=== PATIENT | male | born 1960 | race Caucasian/White ===

== ENCOUNTER → 2016-08-10 | Outpatient (REF) | payer BC ==
[~2016-08-10] MED LIST: ACET-71 PO; ASPI1TAB PO; ATEN25TA PO; ATOR40TA PO; AUGM875T27 PO; DRIS50002 PO; FENO160T10 PO; GABA-283 PO; GLUC850T PO; GLYB5TA PO; HEPA100SYR IV; INSUDET SC; JARD1TAB PO; LEVA750T PO; LISI-538 PO; LISI10TA4 PO; METF750T PO; OMEP20CA3 PO; PERCOCET PO; SILV-4 TOP; SLF IV; UNAS3INJ3 IJ
== END ==
LOC: M LAB REF 12:24
PROVIDERS: ATTEND Surgery
DX: E11.621 Type 2 diabetes mellitus with foot ulcer (principal)

== ENCOUNTER → 2016-08-24 | Outpatient (REF) | payer BC ==
[2016-08-24 12:04] LABS: ANION GAP 9 MEQ/L (8-16); BLOOD UREA NITROGEN 28 MG/DL (7-18); CALCIUM LEVEL 9.3 MG/DL (8.5-10.1); CARBON DIOXIDE LEVEL 28 MEQ/L (21-32); CHLORIDE LEVEL 106 MEQ/L (98-107); GLOMERULAR FILTRATION RATE > 60.0 (>56); GLUCOSE, FASTING 304 MG/DL (70-105); POTASSIUM SERUM 4.6 MEQ/L (3.5-5.1); SODIUM LEVEL 143 MEQ/L (136-145)
[2016-08-24 12:23] LABS: BASO % 0.6 % (0.0-1.0); EOS # 0.1 K/mm3 (0.0-0.50); EOS % 2.1 % (0.0-3.0); LARGE UNSTAINED CELL # 0.1 K/mm3 (0.0-0.4); LARGE UNSTAINED CELL % 2.3 % (0.0-4.0); LYMPH # 1.6 K/mm3 (1.5-4.5); LYMPH % 33.4 % (24.0-44.0); MEAN CORPUSCULAR VOLUME 87.8 fl (80.0-96.0); MONO # 0.3 K/mm3 (0.0-0.8); MONO % 5.5 % (0.0-5.0); NEUTROPHILS # 2.7 K/mm3 (1.8-7.7); NEUTROPHILS % 56.2 % (36.0-66.0); PLATELET COUNT, AUTOMATED 159 k/mm3 (150-450); RED CELL DISTRIBUTION WIDTH 13.7 % (11.5-14.5); WHITE BLOOD COUNT 4.9 K/mm3 (4.0-10.0)
[2016-08-24 12:45] LABS: ERYTHROCYTE SEDIMENTATION RATE 8 mm/hr (0-20)
== END ==
LOC: M LABDRAW1 11:27
PROVIDERS: ATTEND Internal Medicine Infectious Disease
DX: M86.171 Other acute osteomyelitis, right ankle and foot (principal)

== ENCOUNTER → 2016-09-13 | Outpatient (REF) | payer BC | LOC: M LAB REF 16:33 | PROVIDERS: ATTEND Surgery | DX: E11.621 Type 2 diabetes mellitus with foot ulcer (principal) ==

== ENCOUNTER → 2016-09-17 | Outpatient (CLI) | payer BC ==
--- NOTE | 2016-09-17 12:45 | REP ---
MR ANGIOGRAPHY OF THE AORTA AND RUNOFF LOWER EXTREMITY ARTERIES WITH IV CONTRAST: HISTORY: Type 2 diabetes, foot ulcer right side. No comparison MR angiography. GADOLINIUM ENHANCEMENT DOSE: 35 mL of intravenous ProHance is given. TECHNIQUE: 3D gradient echo imaging is acquired, and source images are reviewed in coronal projection. Maximal intensity projection images are generated and reviewed rotationally. MR ANGIOGRAPHIC FINDINGS: The infrarenal abdominal aorta is normal in caliber. Flow signal indicating patency is seen in the superior mesenteric and inferior mesenteric arteries. The celiac axis as at the proximal edge of the scanned field and is not well seen. Renal arteries are nonstenotic and appear solitary. The common iliac arteries are widely patent bilaterally. Internal and external iliac arteries are unremarkable bilaterally. The common femoral, profunda femoral, and superficial femoral arteries are patent in the proximal thighs. There is minimal atherosclerotic irregularity of the mid superficial femoral artery segments on each side, but no significant stenosis is seen. Popliteal arteries are of good caliber. Three-vessel calf run off is documented to both ankles. IMPRESSION: Minimal atherosclerotic irregularity of the mid superficial femoral arteries bilaterally. No significant stenosis seen. Signed by To Eastman MD 09/17/2016 04:46 P
== END ==
LOC: M RAD 10:06
PROVIDERS: ATTEND Surgery
DX: E11.621 Type 2 diabetes mellitus with foot ulcer (principal); I77.89 Other specified disorders of arteries and arterioles
CPT/HCPCS: 74183; A9576; C8914

== ENCOUNTER → 2016-09-27 | Outpatient (REF) | payer BC ==
[2016-09-27 12:02] LABS: MEAN CORPUSCULAR HEMOGLOBIN 29.8 pg (27.0-33.0); MEAN CORPUSCULAR HGB CONC 34.4 g/dl (32.0-36.5); MEAN CORPUSCULAR VOLUME 86.6 fl (80.0-96.0); RED CELL DISTRIBUTION WIDTH 13.7 % (11.5-14.5); WHITE BLOOD COUNT 5.9 K/mm3 (4.0-10.0)
[2016-09-27 12:12] LABS: ALBUMIN 3.8 GM/DL (3.2-5.2); ALBUMIN/GLOBULIN RATIO 1.23 (1.00-1.93); ALKALINE PHOSPHATASE 65 U/L (45-117); ALT/SGPT 19 U/L (12-78); ANION GAP 6 MEQ/L (8-16); AST/SGOT 11 U/L (15-37); BILIRUBIN,TOTAL 0.4 MG/DL (0.2-1.0); BLOOD UREA NITROGEN 27 MG/DL (7-18); CALCIUM LEVEL 8.8 MG/DL (8.5-10.1); CARBON DIOXIDE LEVEL 29 MEQ/L (21-32); CHLORIDE LEVEL 107 MEQ/L (98-107); CREATININE FOR GFR 1.17 MG/DL (0.70-1.30); GLOMERULAR FILTRATION RATE > 60.0 (>56); GLUCOSE, FASTING 220 MG/DL (70-105); POTASSIUM SERUM 4.2 MEQ/L (3.5-5.1); SODIUM LEVEL 142 MEQ/L (136-145); TOTAL PROTEIN 6.9 GM/DL (6.4-8.2)
== END ==
LOC: M LABDRAW1 11:40
PROVIDERS: ATTEND Physician Assistant
DX: E11.29 Type 2 diabetes mellitus with other diabetic kidney complication (principal)

== ENCOUNTER → 2016-11-02 | Outpatient (REF) | payer BC ==
[2016-11-02 11:42] LABS: BASO % 0.6 % (0.0-1.0); EOS # 0.1 K/mm3 (0.0-0.50); EOS % 2.2 % (0.0-3.0); LARGE UNSTAINED CELL # 0.1 K/mm3 (0.0-0.4); LARGE UNSTAINED CELL % 1.5 % (0.0-4.0); LYMPH # 1.8 K/mm3 (1.5-4.5); LYMPH % 27.3 % (24.0-44.0); MEAN CORPUSCULAR HEMOGLOBIN 29.7 pg (27.0-33.0); MEAN CORPUSCULAR HGB CONC 33.7 g/dl (32.0-36.5); MEAN CORPUSCULAR VOLUME 88.1 fl (80.0-96.0); MONO # 0.4 K/mm3 (0.0-0.8); MONO % 6.7 % (0.0-5.0); NEUTROPHILS # 3.8 K/mm3 (1.8-7.7); NEUTROPHILS % 61.7 % (36.0-66.0); PLATELET COUNT, AUTOMATED 200 k/mm3 (150-450); RED CELL DISTRIBUTION WIDTH 13.2 % (11.5-14.5); WHITE BLOOD COUNT 6.2 K/mm3 (4.0-10.0)
[2016-11-02 12:05] LABS: ANION GAP 6 MEQ/L (8-16); BLOOD UREA NITROGEN 34 MG/DL (7-18); CALCIUM LEVEL 9.4 MG/DL (8.5-10.1); CARBON DIOXIDE LEVEL 28 MEQ/L (21-32); CHLORIDE LEVEL 107 MEQ/L (98-107); CREATININE FOR GFR 1.24 MG/DL (0.70-1.30); GLOMERULAR FILTRATION RATE > 60.0 (>56); GLUCOSE, FASTING 217 MG/DL (70-105); POTASSIUM SERUM 4.7 MEQ/L (3.5-5.1); SODIUM LEVEL 141 MEQ/L (136-145)
[2016-11-02 12:13] LABS: ERYTHROCYTE SEDIMENTATION RATE 59 mm/hr (0-20)
== END ==
LOC: M LABDRAW1 11:13
PROVIDERS: ATTEND Internal Medicine Infectious Disease
DX: M86.171 Other acute osteomyelitis, right ankle and foot (principal)

== ENCOUNTER → 2016-11-02 | Outpatient (REF) | payer BC ==
[2016-11-02 12:11] LABS: FOLATE 7.4 NG/ML (>5.4); VITAMIN B12 LEVEL 521 PG/ML (247-911)
[2016-11-02 12:18] LABS: ALBUMIN 3.6 GM/DL (3.2-5.2); ALBUMIN/GLOBULIN RATIO 1.16 (1.00-1.93); ALKALINE PHOSPHATASE 62 U/L (45-117); ALT/SGPT 15 U/L (12-78); ANION GAP 5 MEQ/L (8-16); AST/SGOT 6 U/L (15-37); BILIRUBIN,TOTAL 0.4 MG/DL (0.2-1.0); BLOOD UREA NITROGEN 32 MG/DL (7-18); CALCIUM LEVEL 9.1 MG/DL (8.5-10.1); CARBON DIOXIDE LEVEL 28 MEQ/L (21-32); CHLORIDE LEVEL 107 MEQ/L (98-107); CREATININE FOR GFR 1.25 MG/DL (0.70-1.30); FREE T4 1.19 NG/DL (0.76-1.46); GLOMERULAR FILTRATION RATE > 60.0 (>56); GLUCOSE, FASTING 222 MG/DL (70-105); POTASSIUM SERUM 4.5 MEQ/L (3.5-5.1); SODIUM LEVEL 140 MEQ/L (136-145); TOTAL PROTEIN 6.7 GM/DL (6.4-8.2)
== END ==
LOC: M LABDRAW1 11:14
PROVIDERS: ATTEND Physician Assistant
DX: E11.29 Type 2 diabetes mellitus with other diabetic kidney complication (principal); G56.91 Unspecified mononeuropathy of right upper limb

== ENCOUNTER → 2016-12-01 | Outpatient (REF) | payer BC ==
[2016-12-01 12:22] LABS: MEAN CORPUSCULAR HEMOGLOBIN 29.3 pg (27.0-33.0); MEAN CORPUSCULAR HGB CONC 32.7 g/dl (32.0-36.5); MEAN CORPUSCULAR VOLUME 89.7 fl (80.0-96.0); RED CELL DISTRIBUTION WIDTH 14.2 % (11.5-14.5); WHITE BLOOD COUNT 6.2 K/mm3 (4.0-10.0)
[2016-12-01 12:30] LABS: INR 1.12
[2016-12-01 12:38] LABS: ALBUMIN 3.4 GM/DL (3.2-5.2); ALBUMIN/GLOBULIN RATIO 0.94 (1.00-1.93); ALKALINE PHOSPHATASE 73 U/L (45-117); ALT/SGPT 16 U/L (12-78); ANION GAP 8 MEQ/L (8-16); AST/SGOT 10 U/L (15-37); BILIRUBIN,TOTAL 0.3 MG/DL (0.2-1.0); BLOOD UREA NITROGEN 26 MG/DL (7-18); CALCIUM LEVEL 8.6 MG/DL (8.5-10.1); CARBON DIOXIDE LEVEL 27 MEQ/L (21-32); CHLORIDE LEVEL 106 MEQ/L (98-107); CREATININE FOR GFR 1.17 MG/DL (0.70-1.30); GLOMERULAR FILTRATION RATE > 60.0 (>56); GLUCOSE, FASTING 232 MG/DL (70-105); POTASSIUM SERUM 4.4 MEQ/L (3.5-5.1); SODIUM LEVEL 141 MEQ/L (136-145)
== END ==
LOC: M LABDRAW1 11:06
PROVIDERS: ATTEND Surgery
DX: E11.621 Type 2 diabetes mellitus with foot ulcer (principal)

== ENCOUNTER → 2016-12-07 | Outpatient (CLI) | payer BC ==
[~2016-12-07] MED LIST changes: -ACET-71 PO; +ACET1TAB16 PO; -ATOR40TA PO; +ATOR40TA75 PO; -AUGM875T27 PO; +AUGM875T28 PO; +ISOVUE-300 61% 50ML VIAL (Q9967) As Ordered ONE; -LEVA750T PO; +LEVA750T7 PO; +LIDOCAINE 2% MDV 20 ML VIAL As Ordered ONE; +MIDAZOLAM INJ 2 MG/2 ML VIAL (J2250) As Ordered ONE; +fentaNYL 100 MCG/2 ML INJECTION (J3010) As Ordered ONE
--- NOTE | 2016-12-16 18:44 | REP ---
IMAGES DURING ABDOMINAL AORTOGRAM AND RIGHT LOWER EXTREMITY ANGIOGRAM: Clinical history: Right lower extremity arterial insufficiency with ulcer. Catheter is seen in the abdominal aorta. Contrast is injected. Right lower extremity arterial system is opacified with contrast. 1.1 minutes fluoroscopy time utilized for the procedure. Signed by Hoang Babcock MD 12/16/2016 07:18 P
--- NOTE | 2017-01-06 09:03 | RO ---
DATE OF PROCEDURE: 12/07/2016 PREPROCEDURE DIAGNOSIS: Nonhealing right first toe ulcer, right foot deformity. POSTPROCEDURE DIAGNOSIS: Nonhealing right first toe ulcer, right foot deformity. PROCEDURE: Aortogram, iliofemoral angiogram, selective right common femoral artery catheter placement with right lower extremity angiogram, Mynx closure of the left common femoral arteriotomy. SURGEON: Dr. Leonel Cain. PROJECT PORTFOLIO ANALYST: ANESTHESIA: Local with sedation with 1 mg of Versed, 50 mcg of Fentanyl and 10 mL of 2% lidocaine. ESTIMATED BLOOD LOSS: FLUORO TIME: 1.1 minutes. CONTRAST: 22 mL of Isovue 300. SEDATION TIME: 8:16 a.m. to 8:50 a.m. with the sedation and cardiopulmonary monitoring performed by the RN in the room under my direction. I was present for and directed the entire case. COMPLICATIONS: None. DRAINS: None. SPECIMENS: None. IMPLANTS: Left common femoral arteriotomy closure with a Mynx closure device. INDICATION: Patient is a 56-year-old male with deformity of the right foot and a nonhealing ulcer at the base of the right first toe which has osteomyelitis and has been present for quite some time. The patient was evaluated for possible surgical intervention with amputation and possible transmetatarsal amputation and the recommendation was to undergo angiography prior to any surgical intervention to ensure adequate blood flow for healing. Risks, benefits and alternative treatment options were discussed with the patient. Alternative treatment options including but were not limited to no intervention. Risks included but were not limited to infection, bleeding, renal failure requiring hemodialysis, possible need for open surgical intervention, retroperitoneal hematoma, cerebrovascular accident, myocardial infarction, pulmonary embolus, deep venous thrombosis (DVT), loss of limb, loss of life and poor outcome. Patient understands, accepts these risks and consents to proceed. PROCEDURE: The patient was taken to the angiography suite and placed supine on the angiography room table and then prepped and draped in a standard surgical fashion. After a time out was conducted confirming the proper procedure and patient, the left common femoral artery was cannulated with a micropuncture needle after anesthetizing the overlying skin with 1% lidocaine. The micropuncture wire was advanced through the micropuncture needle which was upsized to a micropuncture sheath. A [place] wire was advanced through the micropuncture sheath which was upsized to a #5-[place] sheath. An Omniflush catheter was placed in the aorta and an aortogram was performed. Catheter was pulled down to the level of the bifurcation of the iliac arteries and an iliofemoral angiogram was performed. Catheter was then directed over the bifurcation of the iliac arteries using a [place] wire and placed in the right common femoral artery and a right lower extremity angiogram was performed. Catheter was then removed over a [place] wire and a Mynx closure device was used to close the arteriotomy in the left common femoral artery with an additional 15 minutes of adjunctive pressure applied for hemostasis. Dressings were then applied. Patient tolerated the procedure well. All instrument, sponge and needle counts were correct at the end of the case. There were no complications. Dr. Cain was present for and directed the entire case. Patient was transferred to the holding area and subsequently discharged in stable condition. RADIOLOGIC SUPERVISION INTERPRETATION: The initial aortogram showed the thoracic aorta from the diaphragm to just above the renal arteries to be widely patent. The superior mesenteric and celiac arteries were patent with no significant stenosis or disease noted. There were two renal arteries on the left both of which were widely patent. There was a single renal artery on the right which showed no evidence of disease. The infrarenal aorta was widely patent with no disease noted with good filling of the lumbar vessels. The inferior mesenteric artery was patent. The common iliac, external and internal iliac arteries bilaterally were widely patent. The right common femoral and proximal superficial femoral and profunda femoris arteries were widely patent. There was no visualization of the right lower extremity below the puncture site. The left common iliac, external iliac, internal iliac and common femoral artery were widely patent. The catheter was then placed in the right common femoral artery and a right lower extremity angiogram was performed which showed the common femoral, superficial femoral and profunda femoris arteries to be widely patent with three vessel runoff into the calf with the anterior tibial artery being dominant. The peroneal artery was patent and small in caliber with moderate disease in the mid calf region. No intervention was required. A Mynx closure device was used to close the arteriotomy in the left common femoral artery.
== END ==
LOC: M IRPRO 06:43
PROVIDERS: ATTEND Surgery Vascular Surgery
DX: I70.235 Atherosclerosis of native arteries of right leg with ulceration of other part of foot (principal); L97.519 Non-pressure chronic ulcer of other part of right foot with unspecified severity; M86.671 Other chronic osteomyelitis, right ankle and foot; E11.621 Type 2 diabetes mellitus with foot ulcer
CPT/HCPCS: 36246; 75630; 75710; 99152; 99153; C1760; C1769; C1887; C1894; J2250; J3010; Q9967

== ENCOUNTER → 2017-07-20 | Outpatient (REF) | payer BC ==
[2017-07-20 12:45] LABS: HEMATOCRIT 45.8 % (42.0-52.0); HEMOGLOBIN 15.8 g/dl (14.0-18.0); MEAN CORPUSCULAR HEMOGLOBIN 29.6 pg (27.0-33.0); MEAN CORPUSCULAR HGB CONC 34.5 g/dl (32.0-36.5); MEAN CORPUSCULAR VOLUME 85.9 fl (80.0-96.0); PLATELET COUNT, AUTOMATED 174 10^3/uL (150-450); RED BLOOD COUNT 5.33 10^6/uL (4.30-6.10); RED CELL DISTRIBUTION WIDTH 12.5 % (11.5-14.5); WHITE BLOOD COUNT 6.1 10^3/uL (4.0-10.0)
[2017-07-20 12:55] LABS: TOTAL 25(OH) VITAMIN D 35.7 NG/ML (30.0-100.0)
[2017-07-20 12:56] LABS: VITAMIN B12 LEVEL 731 PG/ML
[2017-07-20 13:02] LABS: ALBUMIN 4.2 GM/DL (3.2-5.2); ALBUMIN/GLOBULIN RATIO 1.27 (1.00-1.93); ALKALINE PHOSPHATASE 73 U/L (45-117); ALT/SGPT 31 U/L (12-78); ANION GAP 10 MEQ/L (8-16); AST/SGOT 17 U/L (7-37); BILIRUBIN,TOTAL 0.5 MG/DL (0.2-1.0); BLOOD UREA NITROGEN 36 MG/DL (7-18); CALCIUM LEVEL 9.6 MG/DL (8.5-10.1); CARBON DIOXIDE LEVEL 26 MEQ/L (21-32); CHLORIDE LEVEL 103 MEQ/L (98-107); CHOLESTEROL LEVEL 130 MG/DL (<200); CHOLESTEROL RISK RATIO 6.842 (<5); CREATININE FOR GFR 1.14 MG/DL (0.70-1.30); GLOMERULAR FILTRATION RATE > 60.0 (>56); GLUCOSE, FASTING 382 MG/DL (70-105); HDL CHOLESTEROL 19 MG/DL (>40); NON-HDL-C 111 MG/DL; POTASSIUM SERUM 4.4 MEQ/L (3.5-5.1); SODIUM LEVEL 139 MEQ/L (136-145); TOTAL PROTEIN 7.5 GM/DL (6.4-8.2); TRIGLYCERIDES LEVEL 867 MG/DL (<150)
[2017-07-20 13:17] LABS: CREATININE, URINE 24.8 MG/DL; MAU/CREAT RATIO 1100.8 MCG/MG (0.0-30.0)
[2017-07-20 13:29] LABS: ESTIMATED AVERAGE GLUCOSE 275 MG/DL (60-110); HEMOGLOBIN A1c 11.2 %
== END ==
LOC: M SFHCADAM 08:56
DX: E10.65 Type 1 diabetes mellitus with hyperglycemia (principal); I10 Essential (primary) hypertension; E78.4 Other hyperlipidemia; E55.9 Vitamin D deficiency, unspecified; G56.90 Unspecified mononeuropathy of unspecified upper limb
CPT/HCPCS: 82746

== ENCOUNTER → 2018-02-05 | Outpatient (REF) | payer BC | LOC: M LAB REF 10:05 | DX: L03.90 Cellulitis, unspecified (principal) | CPT/HCPCS: 87186 ==

== ENCOUNTER → 2018-09-25 | Outpatient (CLI) | payer BC ==
[~2018-09-25] MED LIST changes: -DRIS50002 PO; +DRIS50003 PO; -GABA-283 PO; +GABA-845 PO; -ISOVUE-300 61% 50ML VIAL (Q9967) As Ordered ONE; -LIDOCAINE 2% MDV 20 ML VIAL As Ordered ONE; -MIDAZOLAM INJ 2 MG/2 ML VIAL (J2250) As Ordered ONE; -fentaNYL 100 MCG/2 ML INJECTION (J3010) As Ordered ONE
[2018-09-25 13:29] LABS: CALCIUM LEVEL 9.1 MG/DL (8.5-10.1); CREATININE FOR GFR 1.5 MG/DL (0.70-1.30); GLOMERULAR FILTRATION RATE 51.4 (>56); POTASSIUM SERUM 4.8 MEQ/L (3.5-5.1)
[2018-09-25 15:59] LABS: HEMOGLOBIN A1c 10.5 %
== END ==
LOC: M SMT 08:57
PROVIDERS: ATTEND Physician Assistant
DX: E11.621 Type 2 diabetes mellitus with foot ulcer (principal); E11.65 Type 2 diabetes mellitus with hyperglycemia; L97.509 Non-pressure chronic ulcer of other part of unspecified foot with unspecified severity

== ENCOUNTER → 2018-10-25 | Outpatient (REF) | payer BC ==
[~2018-10-25] MED LIST changes: -ASPI1TAB PO; +ASPI81TA26 PO; +GLYB-147 PO
[2018-10-25 19:18] LABS: HEMATOCRIT 47.8 % (42.0-52.0); HEMOGLOBIN 16.4 g/dl (13.5-17.5); MEAN CORPUSCULAR HEMOGLOBIN 30.6 pg (27.0-33.0); MEAN CORPUSCULAR HGB CONC 34.3 g/dl (32.0-36.5); MEAN CORPUSCULAR VOLUME 89.2 fl (80.0-96.0); PLATELET COUNT, AUTOMATED 182 10^3/uL (150-450); RED BLOOD COUNT 5.36 10^6/uL (4.30-6.10); WHITE BLOOD COUNT 7.8 10^3/uL (4.0-10.0)
[2018-10-25 19:23] LABS: APPEARANCE, URINE CLEAR (CLEAR); BACTERIA, URINE AUTO NEGATIVE (NEGATIVE); BILIRUBIN, URINE AUTO NEGATIVE (NEGATIVE); BLOOD, URINE BLOOD 2+ (NEGATIVE); COLOR, URINE STRAW (YELLOW); GLUCOSE, URINE (UA) AUTO 3+ mg/dL (NEGATIVE); KETONE, URINE AUTO NEGATIVE (NEGATIVE); LEUKOCYTE ESTERASE, URINE AUTO NEGATIVE (NEGATIVE); NITRITE, URINE AUTO NEGATIVE (NEGATIVE); PROTEIN, URINE AUTO 2+ mg/dL (NEGATIVE); RBC, URINE AUTO 2 /HPF (0-3); SPECIFIC GRAVITY URINE AUTO 1.024 (1.002-1.035); SQUAMOUS EPITHELIAL CELL UR AU 0 /HPF (0-6); UROBILINOGEN, URINE AUTO 0.2 mg/dL (0.0-2.0); WBC, URINE AUTO 1 /HPF (0-3)
[2018-10-25 19:37] LABS: ALBUMIN 4.1 GM/DL (3.2-5.2); ALT/SGPT 40 U/L (12-78); BILIRUBIN,TOTAL 0.4 MG/DL (0.2-1.0); BLOOD UREA NITROGEN 36 MG/DL (7-18); CARBON DIOXIDE LEVEL 26 MEQ/L (21-32); CHLORIDE LEVEL 107 MEQ/L (98-107); CHOLESTEROL LEVEL 151 MG/DL (<200); CHOLESTEROL RISK RATIO 6.291 (<5); CREATININE FOR GFR 1.41 MG/DL (0.70-1.30); FREE T4 1.01 NG/DL (0.76-1.46); GLOMERULAR FILTRATION RATE 55.2 (>56); GLUCOSE, FASTING 338 MG/DL (70-100); HDL CHOLESTEROL 24 MG/DL (>40); NON-HDL-C 127 MG/DL; POTASSIUM SERUM 4.8 MEQ/L (3.5-5.1); SODIUM LEVEL 141 MEQ/L (136-145); TOTAL PROTEIN 7.3 GM/DL (6.4-8.2); TRIGLYCERIDES LEVEL 912 MG/DL (<150)
[2018-10-25 19:45] LABS: HEMOGLOBIN A1c 10.2 %
[2018-10-25 20:05] LABS: CREATININE, URINE 37.7 MG/DL; MAU/CREAT RATIO 1580.9 MCG/MG (0.0-30.0)
== END ==
LOC: M SFHCADAM 17:13
PROVIDERS: ATTEND Physician Assistant
DX: E11.29 Type 2 diabetes mellitus with other diabetic kidney complication (principal); N18.3 Chronic kidney disease, stage 3 (moderate)

== ENCOUNTER → 2018-11-22 | Outpatient (REF) | payer BC ==
[2018-11-22 20:14] LABS: APPEARANCE, URINE CLEAR (CLEAR); BACTERIA, URINE AUTO 1+ (NEGATIVE); BILIRUBIN, URINE AUTO NEGATIVE (NEGATIVE); BLOOD, URINE BLOOD 2+ (NEGATIVE); COLOR, URINE STRAW (YELLOW); GLUCOSE, URINE (UA) AUTO 3+ mg/dL (NEGATIVE); KETONE, URINE AUTO NEGATIVE (NEGATIVE); LEUKOCYTE ESTERASE, URINE AUTO NEGATIVE (NEGATIVE); NITRITE, URINE AUTO NEGATIVE (NEGATIVE); PROTEIN, URINE AUTO 2+ mg/dL (NEGATIVE); RBC, URINE AUTO 5 /HPF (0-3); SPECIFIC GRAVITY URINE AUTO 1.021 (1.002-1.035); SQUAMOUS EPITHELIAL CELL UR AU 0 /HPF (0-6); UROBILINOGEN, URINE AUTO 0.2 mg/dL (0.0-2.0); WBC, URINE AUTO 1 /HPF (0-3)
== END ==
LOC: M SFHCADAM 19:26
PROVIDERS: ATTEND Physician Assistant
DX: M21.961 Unspecified acquired deformity of right lower leg (principal)

== ENCOUNTER → 2018-12-13 | Outpatient (REF) | payer BC ==
[2018-12-13 18:47] LABS: CREATININE FOR GFR 1.45 MG/DL (0.70-1.30); GLOMERULAR FILTRATION RATE 53.4 (>56); POTASSIUM SERUM 4.4 MEQ/L (3.5-5.1)
[2018-12-13 19:14] LABS: APPEARANCE, URINE CLEAR (CLEAR); BACTERIA, URINE AUTO NEGATIVE (NEGATIVE); BILIRUBIN, URINE AUTO NEGATIVE (NEGATIVE); BLOOD, URINE BLOOD 2+ (NEGATIVE); COLOR, URINE STRAW (YELLOW); GLUCOSE, URINE (UA) AUTO 3+ mg/dL (NEGATIVE); KETONE, URINE AUTO NEGATIVE (NEGATIVE); LEUKOCYTE ESTERASE, URINE AUTO NEGATIVE (NEGATIVE); NITRITE, URINE AUTO NEGATIVE (NEGATIVE); PROTEIN, URINE AUTO 2+ mg/dL (NEGATIVE); RBC, URINE AUTO 3 /HPF (0-3); SPECIFIC GRAVITY URINE AUTO 1.022 (1.002-1.035); SQUAMOUS EPITHELIAL CELL UR AU 0 /HPF (0-6); UROBILINOGEN, URINE AUTO 0.2 mg/dL (0.0-2.0); WBC, URINE AUTO 0 /HPF (0-3)
== END ==
LOC: M SMT 17:03
PROVIDERS: ATTEND Nurse Practitioner Women's Health
DX: R31.29 Other microscopic hematuria (principal)
CPT/HCPCS: 36415; 80048; 81001; 87086; 88108; G0103

== ENCOUNTER → 2018-12-21 | Outpatient (CLI) | payer BC ==
[~2018-12-21] MED LIST changes: +ISOVUE-370 76% 100ML VIAL (Q9967) As Ordered ONE
--- NOTE | 2018-12-22 06:09 | REP ---
Nickel: Microscopic hematuria. Technique: Axial precontrast, contrast enhanced, and delayed images of the abdomen and pelvis using 100 ml Isovue 370 intravenous contrast material. Findings: Evaluation of the urinary check system demonstrates mild chronic-appearing bilateral perinephric stranding without hydroureteronephrosis. There is a 2 mm nonobstructing calculus in the upper pole of the right kidney. Kidneys exhibit symmetric parenchymal enhancement and excretion to the collecting system without significant cystic or mass lesion appreciated. Mild fatty infiltration to the liver suggested. Spleen, pancreas, gallbladder, and bilateral adrenal glands are normal. The enteric system is without obstruction or acute inflammatory process. Sigmoid diverticulosis noted without acute diverticulitis. Normal terminal ileum and appendix identified in the right lower quadrant. Fat containing left inguinal hernia noted. Abdominal aorta and vasculature without aneurysm or dissection. Pelvis demonstrates normal bladder and age appropriate prostate/seminal vesicles. No ascites. No free air. No adenopathy. Musculoskeletal structures without focal osseous abnormality. Lung bases are essentially clear. Impression: 1. 2 mm nonobstructing right intrarenal calculus. Mild chronic bilateral perinephric stranding without hydroureteronephrosis. 2. Sigmoid diverticulosis without acute diverticulitis. 3. Small fat containing left inguinal hernia. Electronically Signed by Simon Marrero MD 12/22/2018 06:00 A
== END ==
LOC: M RAD 13:53
PROVIDERS: ATTEND Nurse Practitioner Women's Health
DX: N20.0 Calculus of kidney (principal); K44.9 Diaphragmatic hernia without obstruction or gangrene; K57.32 Diverticulitis of large intestine without perforation or abscess without bleeding
CPT/HCPCS: 74178; Q9967

== ENCOUNTER → 2019-03-08 | Outpatient (REF) | payer BC ==
[~2019-03-08] MED LIST changes: +CLIN300C5 PO; +CYCL10TA PO; +HYDR-2808 PO; +IBUP1TAB7 PO; -ISOVUE-370 76% 100ML VIAL (Q9967) As Ordered ONE; +JARD1TAB3 PO; +LISI40TA PO; -METF750T PO; +METF750T36 PO; +OMEP1CAP73 PO; -OMEP20CA3 PO; +PARO20TA3 PO; +TOUJ1.2I SC
[2019-03-08 18:57] LABS: APPEARANCE, URINE CLEAR (CLEAR); BACTERIA, URINE AUTO NEGATIVE (NEGATIVE); BILIRUBIN, URINE AUTO NEGATIVE (NEGATIVE); BLOOD, URINE BLOOD 2+ (NEGATIVE); COLOR, URINE STRAW (YELLOW); GLUCOSE, URINE (UA) AUTO 3+ mg/dL (NEGATIVE); KETONE, URINE AUTO NEGATIVE (NEGATIVE); LEUKOCYTE ESTERASE, URINE AUTO NEGATIVE (NEGATIVE); NITRITE, URINE AUTO NEGATIVE (NEGATIVE); PROTEIN, URINE AUTO 2+ mg/dL (NEGATIVE); RBC, URINE AUTO 1 /HPF (0-3); SPECIFIC GRAVITY URINE AUTO 1.026 (1.002-1.035); SQUAMOUS EPITHELIAL CELL UR AU 0 /HPF (0-6); UROBILINOGEN, URINE AUTO 0.2 mg/dL (0.0-2.0); WBC, URINE AUTO 1 /HPF (0-3)
== END ==
LOC: M SMT 17:22
PROVIDERS: ATTEND Nurse Practitioner Women's Health
DX: R31.29 Other microscopic hematuria (principal)

== ENCOUNTER 2019-07-29 13:09 | Emergency (ER) | payer BC ==
[~2019-07-29] VITALS: Ht 185.4 cm; Wt 109.1 kg
[~2019-07-29 13:09] MED LIST changes: -CLIN300C5 PO; -CYCL10TA PO; -HYDR-2808 PO; -IBUP1TAB7 PO; -JARD1TAB3 PO; -LISI40TA PO; -PARO20TA3 PO; -TOUJ1.2I SC
[2019-07-29] MEDS ORDERED: TOUJ1.2I (13:57)
[2019-07-29] MEDS ORDERED: LISI40TA (13:57)
[2019-07-29] MEDS ORDERED: PARO20TA3 (13:57)
--- NOTE | 2019-07-29 15:59 | REP ---
Right lower extremity Duplex Doppler venous ultrasound: Real time compression and duplex Doppler interrogation of the right lower extremity deep venous system is performed. The right common femoral, superficial femoral and popliteal veins are fully compressible with transducer pressure and demonstrate normal spontaneous and phasic flow, without evidence of deep venous thrombosis. Impression: No evidence of deep venous thrombosis of the right lower extremity femoral popliteal venous system. Electronically Signed by Hoang Babcock MD 07/29/2019 03:51 P
[2019-07-29] MEDS ORDERED: CYCLOBENZAPRINE 10 MG TAB PO ONE (16:15)
[2019-07-29] MEDS ORDERED: IBUPROFEN 600 MG TAB PO ONE (16:15)
[2019-07-29] MEDS ORDERED: CYCL10TA PO (16:17)
[2019-07-29 16:25] VITALS: BP 148/66
== END 2019-07-29 16:40 | disposition home or self-care (01) ==
LOC: M ED 13:09
DX: S86.101A Unspecified injury of other muscle(s) and tendon(s) of posterior muscle group at lower leg level, right leg, initial encounter (principal); W19.XXXA Unspecified fall, initial encounter; Y92.9 Unspecified place or not applicable; F17.200 Nicotine dependence, unspecified, uncomplicated; E78.00 Pure hypercholesterolemia, unspecified; E11.9 Type 2 diabetes mellitus without complications; I10 Essential (primary) hypertension; Z88.8 Allergy status to other drugs, medicaments and biological substances; Z89.421 Acquired absence of other right toe(s); Z79.82 Long term (current) use of aspirin; Z79.4 Long term (current) use of insulin; Z79.899 Other long term (current) drug therapy

== ENCOUNTER 2019-08-06 08:32 | Inpatient (IN) | payer BC ==
[~2019-08-06] VITALS: Ht 185.4 cm; Wt 108.0 kg
[~2019-08-06 08:32] MED LIST changes: +CYCL10TA PO; +LISI40TA PO; +PARO20TA3 PO; +TOUJ1.2I SC
[2019-08-06] MEDS ORDERED: CLIN300C5 PO (08:40)
[2019-08-06] MEDS ORDERED: MORPHINE 4 MG/ML 1ML VIAL/SYRINGE (J2270) IV ONE (09:30)
[2019-08-06 10:07] LABS: HEMATOCRIT 40.4 % (42.0-52.0); HEMOGLOBIN 12.1 g/dl (13.5-17.5); MEAN CORPUSCULAR HEMOGLOBIN 27.9 pg (27.0-33.0); MEAN CORPUSCULAR VOLUME 93.3 fl (80.0-96.0); PLATELET COUNT, AUTOMATED 229 10^3/uL (150-450); RED BLOOD COUNT 4.33 10^6/uL (4.30-6.10); WHITE BLOOD COUNT 15.7 10^3/uL (4.0-10.0)
[2019-08-06 10:24] LABS: LYMPHOCYTES 17 % (16-44); MONOCYTES 2 % (0-5); NEUTROPHILS 81 % (28-66)
[2019-08-06 10:25] LABS: PLATELET ESTIMATE NORMAL (NORMAL)
[2019-08-06 10:44] LABS: ALBUMIN 1.9 GM/DL (3.2-5.2); ALT/SGPT 41 U/L (12-78); BILIRUBIN,DIRECT 0.3 MG/DL (0.0-0.2); BILIRUBIN,TOTAL 0.7 MG/DL (0.2-1.0); BLOOD UREA NITROGEN 47 MG/DL (7-18); CARBON DIOXIDE LEVEL 20 MEQ/L (21-32); CHLORIDE LEVEL 103 MEQ/L (98-107); CREATININE FOR GFR 1.43 MG/DL (0.70-1.30); GLOMERULAR FILTRATION RATE 54.1 (>56); GLUCOSE, FASTING 225 MG/DL (70-100); POTASSIUM SERUM 5.4 MEQ/L (3.5-5.1); SODIUM LEVEL 137 MEQ/L (136-145); TOTAL PROTEIN 6.5 GM/DL (6.4-8.2)
[2019-08-06] MEDS ORDERED: HYDR-2808 PO (11:41)
[2019-08-06] MEDS ORDERED: IBUP1TAB7 PO (11:41)
[2019-08-06] MEDS ORDERED: DRIS50003 PO (11:41)
[2019-08-06] MEDS ORDERED: JARD1TAB3 PO (11:41)
[2019-08-06] MEDS ORDERED: GLUCOSE 4 GM CHEW TABLET PO PRN (11:45)
[2019-08-06] MEDS ORDERED: GLUCAGON FOR INJ 1 MG VIAL (J1610) SC PRN (11:45)
[2019-08-06] MEDS ORDERED: DEXTROSE 50% 50 ML SYRINGE IV PRN (11:45)
[2019-08-06] MEDS ORDERED: traMADol 50 MG TAB PO ONE (12:00)
--- NOTE | 2019-08-06 12:25 | REP ---
Duplex extremity venous ultrasound: Right lower extremity. History: Swelling and redness. Rule out DVT. Findings: The deep veins are anechoic and fully compressible from the groin to the popliteal fossa in the right lower extremity. Color flow imaging is homogeneous. Spectral Doppler interrogation demonstrates intact respiratory variation in flow and normal manual augmentation of flow. There is no evidence of deep vein thrombosis. Impression: Negative right lower extremity duplex venous ultrasound. No evidence of deep vein thrombosis. Electronically Signed by To Eastman MD 08/06/2019 12:17 P
[2019-08-06] MEDS ORDERED: SODIUM CHLORIDE 0.9% 1000ML IV STA (12:42)
[2019-08-06 13:28] LABS: HEMATOCRIT 38.6 % (42.0-52.0); HEMOGLOBIN 11.7 g/dl (13.5-17.5); MEAN CORPUSCULAR HGB CONC 30.3 g/dl (32.0-36.5); MEAN CORPUSCULAR VOLUME 92.3 fl (80.0-96.0); PLATELET COUNT, AUTOMATED 250 10^3/uL (150-450); RED BLOOD COUNT 4.18 10^6/uL (4.30-6.10); WHITE BLOOD COUNT 14.8 10^3/uL (4.0-10.0)
[2019-08-06] MEDS ORDERED: PERCOCET 5MG/325MG TAB PO ONE (13:45)
[2019-08-06 13:48] LABS: LYMPHOCYTES 14 % (16-44); MONOCYTES 3 % (0-5); NEUTROPHILS 83 % (28-66); PLATELET ESTIMATE NORMAL (NORMAL)
[2019-08-06 14:15] VITALS: BP 141/71
[2019-08-06 14:32] LABS: HEMOGLOBIN A1c 10.3 %
[2019-08-06] MEDS: PARoxetine 20 MG TAB PO SCH (14:39)
[2019-08-06] MEDS: lisinopriL 40 MG TAB PO SCH (14:40)
[2019-08-06] MEDS: ASPIRIN 81 MG ENTERIC TAB PO SCH (14:40)
[2019-08-06] MEDS: OMEPRAZOLE 20 MG CAP PO SCH (14:40)
[2019-08-06] MEDS: HumaLOG INSULIN (NovoLOG) PER UNIT SC SCH ×3 (14:41→21:00)
[2019-08-06] MEDS ORDERED: VANCOMYCIN HCL 500 MG in D5W MINI-BAG PLUS 100 ML IV SCH (15:30)
--- NOTE | 2019-08-06 15:47 | PHACANCOPD ---
PHARMACY VANCOMYCIN DOSING Pt Demographics Demographics Patient Age:59 , Weight:109.090 , Gender: male Adjusted Body Weight Date: 08/06/19, Adjusted Body Weight: Kg Events Past 24 Hours Events Past 24 Hours: YES: Elevation in WBC; NO: Dialysis, Diuretic Therapy, Change in CrCl, Fever, Pending Diagnostics, Pending Procedures, Other Vancomycin Vancomycin indication: SSTI Vancomycin Target Ranges: 10-20 mcg/ml Vancomycin Load Y/N: Yes Load Dose Date Time Vancomycin Load Dose: 2000MG Date: 08/06/19 Time: 1700 Vancomycin Dose Date: 08/06/19. Current Vancomycin Dose: [ 1500mg q12h ] Intermittent Dosing?: No Labs Labs Vital Signs Label Value Date Time Patient Temperature 98.8 degrees F 08/06/19 1409 Temperature Source Oral 08/06/19 1409 Patient Temperature 97.8 degrees F 08/06/19 1415 Temperature Source Temporal 08/06/19 1415 Respiratory Rate 20 bpm 08/06/19 1409 Respiratory Rate 20 bpm 08/06/19 1330 Blood Pressure Assessment 139/64 (89) 08/06/19 1330 Location Left Arm Source Automatic Cuff (NIBP) Position Sitting Blood Pressure Assessment 146/75 (98) 08/06/19 1409 Location Left Arm Source Automatic Cuff (NIBP) Position Sitting Blood Pressure Assessment 141/71 (94) 08/06/19 1415 Item Value Date Time White Blood Count 14.8 10^3/uL H 08/06/19 1258 White Blood Count 15.7 10^3/uL H 08/06/19 0949 Creatinine 1.43 MG/DL H 08/06/19 0949 Glomerular Filtration Rate 54.1 L 08/06/19 0949 C-Reactive Protein, Quantitative 24.80 MG/DL H 08/06/19 0949 Micro Microbiology 08/06/19 Blood Culture, Received Pending 08/06/19 Blood Culture, Received Pending 08/06/19 Blood Culture, Received Pending Creatinine Clearance Date:08/06/19. Creatinine Clearance: [ 63.6 mL/min ]. Assessment and Plan Maintaining Current Dose?: Yes Reason for dose change: No Dose Change Pharmacist Note Pharmacist Note Date: 08/06/19. Pharmacist note: Patient ROSITA is a 59 year old male who presented to the emergency department at [facility] after failing outpatient therapy of clindamycin to treat a right lower extremity cellulitis. He presents now with purulent cellulitis. He was started on broad-spectrum antibiotic therapy consisting of Zosyn 3.375 grams every six hours and vancomycin for methicillin-resistant S. aureus coverage. He has previously received vancomycin at [facility], but for this admission he presents with improved renal function. A loading dose of 2 grams was scheduled for this evening, with a maintenance dose of 1.5 grams every 12 hours starting tomorrow morning. His goal vancomycin trough is 10-20 mcg/dL. We will continue to monitor and make adjustments as needed. [facility] Aug 06, 2019 15:47
[2019-08-06] MEDS: PIPERACILLIN/TAZOBACTAM SOD 3.375 GM in D5W MINI-BAG PLUS 50 ML IV SCH ×2 (15:51→21:31)
[2019-08-06] MEDS ORDERED: D5W IV SCH (16:00)
[2019-08-06] MEDS ORDERED: TRIMETHOPRIM IV SCH (16:00)
[2019-08-06] MEDS ORDERED: SULFAMETHOXAZOLE IV SCH (16:00)
[2019-08-06 16:42] LABS: ABG BASE EXCESS -5.5 (-2.0-2.0); ABG HCO3 18.7 MEQ/L (22.0-26.0); ABG O2 SATURATION 97.4 % (95.0-99.0); ABG PARTIAL PRESSURE CO2 32.4 mmHg (35.0-45.0); ABG PARTIAL PRESSURE O2 96.4 mmHg (75.0-100.0); ABG STANDARD HCO3 19.9 MEQ/L (22.0-26.0); ABG TOTAL CO2 19.7 MEQ/L (22.0-29.0)
[2019-08-06 16:42] LABS: FERRITIN 1451 NG/ML (26-388); IRON (FE) 47 UG/DL (65-175); PERCENT SATURATION 26.4 % (19.7-50.0); TOTAL IRON BINDING CAPACITY 178 UG/DL (250-450)
[2019-08-06] MEDS: VANCOMYCIN HCL 1,000 MG, VIAL MATE ADAPTER 1 EACH in D5W 250 ML IV SCH ×2 (17:17→18:29)
--- NOTE | 2019-08-06 17:40 | HPEPDOC ---
[facility] Medical History & Physical Date of Admission Aug 06, 2019 Date of Service: Aug 06, 2019 Primary Care Physician: Ry Mcbride MD Attending Physician: RAQUEL TAYLOR MD History and Physical CHIEF COMPLAINT: Right lower extremity pain and swelling HISTORY OF PRESENT ILLNESS: Maxx is a 59-year-old male with pertinent past medical history of type 2 diabetes on insulin and hypertension, who presented to the emergency department this morning with the chief complaint of progressively worsening right lower extremity pain and swelling. 2 half weeks ago. The patient was playing with his grandson when he fell on his right lower extremity. 2 days after falling. He developed pain and swelling of the right lower extremity. He presented to 2 different urgent care facilities after symptom onset with no real resolution of symptoms. He subsequently presented to the [facility] ED on 07/29, at which time a right lower extremity duplex ultrasound was negative for DVT and he was subsequently sent home. Patient's symptoms did not resolve and he then went to urgent care again, at this time, he was prescribed a ten-day course of clindamycin. Upon presentation today, he is on day 9 of the clindamycin administration. Patient reports he had a 48 hour viral enteritis last week. He denies any recent change in medication regimen, any recent extensive travel, and any recent known sick contacts. In the ED today, the patient was found to have leukocytosis (WBC 15.7), normocyt ic normochromic anemia (hemoglobin 12.1), elevated CRP (24.9), elevated d-dimer (3647), mildly elevated AST (38), elevated alkaline phosphatase (273), serum glucose of 225, GFR 54% with creatinine of 1.43 (recent BL about 1.4), and an unremarkable lactic acid level of 1.3. Patient was given one-time dose of IV morphine for pain. A repeat right lower extremity Doppler ultrasound was ordered, which was again negative for DVT. Pulse wave Doppler of dorsalis pedis and posterior tibial was performed and pulses were present bilaterally. Blood cultures were ordered and are pending. Patient was admitted under the care of the hospitalist team due to failure of outpatient treatment and suspected right lower extremity skin/soft tissue infection/cellulitis. Patient's PCP is Dr. Ry Mcbride and he also follows regularly with Dr. Myles for outpatient podiatric care. Patient verbally confirms to hospitalist team that he is a full code. REVIEW OF SYSTEMS: CONSTITUTIONAL: Endorses chills; Denies fever, rigors, night sweats. HEENT: Endorses chronic rhinorrhea, dry throat and sore throat; Denies eye pain, diplopia, blurry vision, ear pain, tinnitus. CARDIOVASCULAR: Denies chest pain, chest pressure or palpitations. RESPIRATORY:. Denies dyspnea, cough, or pleuritic chest pain. GASTROINTESTINAL: Reports no bowel movement in the past 3 days; Denies abdominal pain, feeling nauseated, or vomiting. GENITOURINARY: Denies dysuria or hematuria. SKIN: Endorses increased tautness of skin over right lower extremity. NEUROLOGICAL: Denies headache, feeling lightheaded, dizziness, or syncope. 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 States he has not smoked though over the past 3 weeks. -Drinks alcohol on a very rare basis (approximately 1-2 drinks per year) -Denies current or former illicit drug use -Has multiple tattoos which he states were professionally done FAMILY HISTORY: Small cell lung cancer (mother, in 1998) ALLERGIES: Metformin (diarrhea) HOME MEDICATIONS: Please see below. PHYSICAL EXAMINATION: VITAL SIGNS: Temperature 97.1, pulse and 16, respiratory rate 20, blood pressure 36/76 (map of 96), pulse oximetry 98 % on room air. GENERAL APPEARANCE: Pleasant male who is lying in bed predominately on his left side. He appears to be in moderate discomfort, but does not seem to be in acute distress of any kind. Alert and oriented 3. Well-nourished and well- developed. HEENT: Normocephalic, atraumatic. Wearing eyeglasses and icteric and not in jected sclera. Pupils are equal, yet have a somewhat diminished response to light and accommodation. Extraocular motion is intact. Significant bilateral earwax that obscures visualization of TMs. Moderate pharyngeal erythema with some white exudate present on the tongue. No palpable cervical or supr aclavicular lymphadenopathy. Neck is supple and trachea is midline. CARDIOVASCULAR: Cardiac rate with regular rhythm. S1, S2 auscultated., No murmurs or rubs appreciated. LUNGS: Clear to auscultation bilaterally, with no appreciated wheezes, crackles or rhonchi. Symmetric chest expansion with adequate tidal volume. Speaking in full sentences. Breathing on room air. ABDOMEN: Soft, mildly obese. Nondistended and nontender. Small healed supraumbilical scar., Bowel sounds present in all 4 quadrants. No rebound, guarding or rigidity. MUSCULOSKELETAL: 5/5 muscle strength testing, upper extremity and lower extremity bilaterally. EXTREMITIES: Diffuse swelling of the right lower extremity, beginning just distal to the right inguinal area and extending down to the right foot. The skin appears more talked with greater warmth and erythema as compared to the left lower extremity. Specific to the right lower extremity erythema, it appears to petechia-like presentation. There is a roughly 5 cm x 4 cm fluctuant blister on the skin overlying the fibular head. 2+ right lower extremity pitting edema and 2+ pedal edema. There appears to be some serous discharge from the posterior aspect of the right lower extremity onto the patient's bed sheets. Onychomycosis of right fingernails and bilateral toenails. 2+ bilateral radial pulses with present and equal bilateral. Dorsalis pedis and posterior tibial pulses via pulse wave Doppler. The right second and right fourth toes have been surgically removed. NEUROLOGICAL: Awake, alert and oriented 3. No focal neurological deficits appreciated. Responds appropriate to questions and commands. Patient able to move bilateral lower extremities and feet, but cannot individually move 3 remaining toes on his right foot when asked. Sensation to light touch of lower extremities, equal bilaterally. PSYCHIATRIC: Appropriate appearing affect and mood. LABORATORY DATA: Please see below. IMAGING: Right lower extremity duplex venous ultrasound, 08/06/2019: Negative. Right lower extremity duplex venous ultrasound. No evidence of deep v ein thrombosis. MICROBIOLOGY: Please see below. ASSESSMENT & PLAN: This is a 59-year-old male with history of type 2 diabetes on insulin with neuropathy and microvascular complications, and hypertension, who presented with progressively worsening right lower extremity pain and swelling over the past 2- 1/2 weeks. Patient was previously worked up on 07/29 at [facility] ED and subsequently discharged from ED after no evidence of DVT was found. Patient has been seen at a few urgent care practices over the past couple weeks and was prescribed a 10 day course of clindamycin. Patient's right lower extremity symptoms continued to worsen and intensify despite the antibiotic. On 08/06 ED presentation, patient had elevated CRP, D-dimer, leukocytosis, anemia, chronic kidney disease, hyperkalemia, and tachycardia. Repeat right lower extremity duplex venous ultrasound was again negative for DVT. With patient's presenting tachycardia and leukocytosis, with evidence of right lower extremity skin/soft tissue infection, SIRS criteria was met and sepsis protocol was started. Patient received bolus IV fluids, IV antibiotics, with blood cultures and RLE wound cultures pending. He will be admitted for management of sepsis possibly 2/2 RLE cellultis #Sepsis possibly 2/2 right lower extremity cellulitis -WBC 15.7, heart rate of 116, elevated CRP, elevated d-dimer, with evidence of right lower extremity skin infection; lactic acid 1.3 (wnl) -qSOFA score for sepsis of 0, indicating not high risk; National Early Warning Score (NEWS) 2 score of two (2), indicating low risk -Bolus IV fluids given -Right lower extremity wound cultures taken -IV Zosyn and vancomycin antibiotic coverage, Day #1 -Blood cultures pending -Accu-Cheks every 6 hours -Spoke with general surgery (Dr. Orellana) who saw patient and advised extended penicillin antibiotic coverage with vancomycin; fluctuant fluid-filled area on skin or fibular head deem to be blister. Dr. Orellana advised infectious disease consult if patient's right lower extremity symptoms and presentation are not improved tomorrow. #Right lower extremity pain and swelling -Repeat right lower extremity duplex venous ultrasound negative for DVT; elevated CRP and d-dimer -Received one-time doses of morphine and Percocet; now receiving prn acetaminophen and Percocet -Dr. Orellana (general surgery) advised infectious disease consult if patient's right lower extremity symptoms and presentation are not improved tomorrow. #Uncontrolled type 2 diabetes on insulin -Serum glucose measurements of 225 and 249 today, with A1c of 10.3 -Oral home hyperglycemic medications held -Sliding-scale insulin with patient's home daily long-acting insulin continued -Consistent carb diet #Normocytic normochromic anemia -Hemoglobin 12.1 with MCV 93% -Iron studies ordered to assess for possible cause of normocytic normochromic anemia. -Guaiac occult stool test ordered to assess for possible GI bleed as cause #Chronic kidney disease, Stage IIIa (moderate) -Received IV fluid bolus per sepsis protocol -Creatinine of 1.4 is around where his baseline has been over the past year and a half to 2 years -Held patient's home ibuprofen -Initial electrolytes showed hyperkalemia that was likely secondary to renal insufficiency -Home lisinopril continued #Hyperkalemia -On telemetry -No specific EKG changes -Repeat metabolic panel ordered to assess serum potassium again -At this time, no reason to treat as serum potassium is not greater than 6 and patient does not have any EKG changes -This is likely secondary to renal insufficiency #History of hyperlipidemia -Continue with home atorvastatin, fenofibrate, and 81 mg aspirin #Transaminitis -AST very mildly elevated with elevated alkaline phosphatase -Hepatitis profile panel ordered as patient is born between the years of 5 in 1964 -Continue to follow CMP #Chronic Hypertension -Home lisinopril continued -Continue to monitor vitals #History of GERD -Home omeprazole continued #DVT prophylaxis: Subcutaneous Lovenox DISPOSITION: Projected to require at least 48 hour stay at this time pending improvement of right lower extremity symptoms Vital Signs Vital Signs Date Time Temp Pulse Resp B/P (MAP) Pulse Ox O2 Delivery O2 Flow Rate FiO2 08/06/19 15:27 17 08/06/19 14:15 97.8 105 141/71 (94) 98 Room Air Laboratory Data Labs 24H Laboratory Tests 2 08/06/19 09:49: Immature Granulocyte % (Auto) , Nucleated Red Blood Cells % (auto) 0.0, Neutrophils 81H, Lymphocytes (Manual) 17, Monocytes (Manual) 2, Red Blood Cell Morphology NORMAL, Platelet Estimate NORMAL, D-Dimer, Quantitative 3647.80H, Anion Gap 14, Glomerular Filtration Rate 54.1L, Calcium Level 9.0, Total Bilirubin 0.7, Direct Bilirubin 0.3H, Aspartate Amino Transf (AST/SGOT) 38H, Alanine Aminotransferase (ALT/SGPT) 41, Alkaline Phosphatase 273H, C-Reactive Protein, Quantitative 24.80H, Total Protein 6.5, Albumin 1.9L, Albumin/Globulin Ratio 0.41L 08/06/19 09:50: Lactic Acid Level 1.3 08/06/19 12:58: Immature Granulocyte % (Auto) , Nucleated Red Blood Cells % (auto) 0.0, Neutrophils 83H, Lymphocytes (Manual) 14L, Monocytes (Manual) 3, Red Blood Cell Morphology NORMAL, Platelet Estimate NORMAL, Estimated Mean Plasma Glucose 249H, Hemoglobin A1c 10.3 08/06/19 13:55: Bedside Glucose (Misc Panel) 180H CBC/BMP Laboratory Tests 08/06/19 09:49 08/06/19 12:58 Microbiology Microbiology 08/06/19 Gram Stain, Received Pending 08/06/19 Wound Culture, Received Pending 08/06/19 Blood Culture, Received Pending 08/06/19 Blood Culture, Received Pending 08/06/19 Blood Culture, Received Pending Home Medications Scheduled Aspirin (Aspirin EC) 81 Mg Tab, 81 MG PO DAILY Atorvastatin Calcium (Atorvastatin Calcium) 40 Mg Tab, 40 MG PO QHS Clindamycin HCl (Clindamycin HCl) 300 Mg Capsule, 300 MG PO BID FOR 10 DAYS, FILLED 07/31/19 Empagliflozin (Jardiance) 25 Mg Tablet, 25 MG PO DAILY Ergocalciferol (Vitamin D2) (Drisdol) 1,250 Mcg Capsule, 50,000 UNITS PO QWEEK MONDAYS Fenofibrate (Fenofibrate) 160 Mg Tab, 160 MG PO DAILY Glyburide (Glyburide) 5 Mg Tab, 5 MG PO BID Insulin Glargine,Hum.rec.anlog (Toujeo Solostar) 300 Unit/1 Ml Insuln.pen, 120 UNITS SC QHS Lisinopril (Lisinopril) 40 Mg Tablet, 40 MG PO DAILY Omeprazole (Omeprazole) 20 Mg Cap, 20 MG PO DAILY Paroxetine HCl (Paroxetine HCl) 20 Mg Tablet, 20 MG PO DAILY Scheduled PRN Hydrocodone/Acetaminophen (Hydrocodone-Acetamin 5-300 mg) 1 Each Tablet, 1 TAB PO TID PRN for PAIN Ibuprofen (Ibuprofen) 800 Mg Tablet, 800 MG PO TID PRN for PAIN Allergies Coded Allergies: metformin (Verified Adverse Reaction, Unknown, DIARRHEA, 07/29/19) A-FIB/CHADSVASC A-FIB History Current/History of A-Fib/PAF?: No Current PO Anticoag Therapy: No (receiving DVT prophylaxis. Subcutaneous Ayse enox) GME ATTESTATION GME ATTESTATION My faculty preceptor for this patient encounter was physically present during the encounter and was fully available. All aspects of the patient interview, examination, medical decision making process, and medical care plan development were reviewed and approved by the faculty preceptor. The faculty preceptor is aware and concurs with the plan as stated in the body of this note and will attest to such by his/her cosignature. ATTENDING NOTE I examined Mr. Bradshaw at 4 PM reviewed & edited Dr. Islas note and agree with the findings as documented YIMI ISLAS D.O. Aug 06, 2019 17:40 RAQUEL TAYLOR MD Aug 06, 2019 18:55
[2019-08-06] MEDS ORDERED: LEVEMIR (INSULIN DETEMIR) 1 UNITS/0.01ML SC ONE (18:45)
--- NOTE | 2019-08-06 20:06 | CR ---
DATE OF CONSULTATION: 08/06/2019 The patient is a 59-year-old male who essentially 2 weeks ago developed some right lower leg swelling, pain and discomfort after falling, and since that time, he has been to a couple different places, i.e. urgent care facilities with evaluation of this leg swelling, was treated for cellulitis, and presents on day #9 of his clindamycin. The patient has had some viral enteritis over the last week but no other complaints. No other gastrointestinal (GI) complaints, no abdominal pain, only right lower leg discomfort. The patient has had previous right foot surgery, including amputations of second and fourth toes, history of diabetes mellitus, history of diabetic neuropathy, history of hypertension. MEDICATIONS: Include aspirin, atorvastatin, clindamycin, Jardiance, Drisdol, fenofibrate, glyburide, Toujeo, lisinopril, omeprazole and paroxetine, as well as as needed hydrocodone and ibuprofen. PHYSICAL EXAM: Reveals a 59-year-old who looks stated age. HEENT is unremarkable. Lungs are clear anteriorly. Heart is regular. Abdomen: Soft. His right lower leg is tensely distended and tight throughout. He does have some perfusion that is good to his foot and to his lower leg. He does have a blister on his right lateral leg, and he has had some healed blisters on the upper outer thigh. He has not significantly elevated his leg over the last 10 days. IMPRESSION AND PLAN: The patient has evidence of an erythematous leg throughout his entire leg, and I believe that the majority of this is reactive erythema through his significant edema throughout the leg. It may be secondary to cellulitis of the entire leg, but that would be quite impressive and extensive without him looking significantly more septic than I would expect him to be, especially with his diabetes issues. Thus, I anticipate after significantly elevating his leg, he may have some significant improvement of this generalized erythema/swelling. This definitely needs to improve over the next 24-48 hours to imply that it is just edematous changes and it is because he needs to just elevate his foot more. However, if this is ongoing, I would recommend that you proceed with evaluation of possible decreased drainage through the lymphatics, either some issues associated with the right groin, although he has edema all the way up here that I am not appreciating any significant impaired return, but even possibly proceeding with a CT of the pelvis for further evaluation might be reasonable in this individual. Otherwise, if further from a bacterial studies could be considered, you could aspirate one of the blisters on his leg. There is no debridement that needs to be performed at this time and no specific operative intervention or surgical intervention. Please contact me if you need further evaluation or recommendations concerning his care. I do recommend, however, if he does not have a significant improvement of his overall presentation by tomorrow morning, I would recommend that to have infectious disease (ID) take a look at him for rule out any other significant abnormality that is not being addressed by current antibiotic coverage.
[2019-08-06] MEDS: ATORVASTATIN 20 MG TAB PO SCH (21:27)
[2019-08-06] MEDS: PERCOCET 5MG/325MG TAB PO PRN (21:28)
[2019-08-06] MEDS: FENOFIBRATE 145 MG TAB (TRICOR) PO SCH (21:28)
[2019-08-06 22:00] VITALS: BP 155/73
[2019-08-07] MEDS: PIPERACILLIN/TAZOBACTAM SOD 3.375 GM in D5W MINI-BAG PLUS 50 ML IV SCH ×4 (03:56→22:08)
[2019-08-07] MEDS: PERCOCET 5MG/325MG TAB PO PRN ×3 (04:16→17:46)
[2019-08-07] MEDS: VANCOMYCIN HCL 1,000 MG, VIAL MATE ADAPTER 1 EACH in D5W 250 ML IV SCH ×2 (05:22→17:53)
[2019-08-07 06:00] VITALS: BP 168/70
--- NOTE | 2019-08-07 06:03 | ECGEPIP ---
[facility] - ED Test Date: 2019-08-06 Pat Name: VELMA PHILLIPS Department: Room: - Gender: Male Court Liaison: fritz : 1960 Requested By: NEELIMA SCOTT Order Number: [id number] Reading MD: Phil White Measurements Intervals [place] Rate: 108 P: 29 OR: 121 QRS: 9 QRSD: 98 T: 48 QT: 326 QTc: 438 Interpretive Statements SINUS TACHYCARDIA POSSIBLE INCOMPLETE RIGHT BUNDLE BRANCH BLOCK RATE CHANGE COMPARED TO 05/27/16 Electronically Signed on 08-07-2019 6:03:23 EST by Phil White
[2019-08-07 06:19] LABS: HEMATOCRIT 32.9 % (42.0-52.0); HEMOGLOBIN 10.2 g/dl (13.5-17.5); MEAN CORPUSCULAR HEMOGLOBIN 28.3 pg (27.0-33.0); MEAN CORPUSCULAR VOLUME 91.1 fl (80.0-96.0); PLATELET COUNT, AUTOMATED 170 10^3/uL (150-450); RED BLOOD COUNT 3.61 10^6/uL (4.30-6.10); WHITE BLOOD COUNT 12.3 10^3/uL (4.0-10.0)
[2019-08-07] MEDS: VANCOMYCIN HCL 500 MG in D5W MINI-BAG PLUS 100 ML IV SCH ×2 (06:30→19:31)
[2019-08-07 06:50] LABS: ALBUMIN 1.5 GM/DL (3.2-5.2); ALT/SGPT 41 U/L (12-78); BILIRUBIN,TOTAL 0.7 MG/DL (0.2-1.0); BLOOD UREA NITROGEN 31 MG/DL (7-18); CALCIUM LEVEL 7.9 MG/DL (8.5-10.1); CARBON DIOXIDE LEVEL 24 MEQ/L (21-32); CHLORIDE LEVEL 105 MEQ/L (98-107); CREATININE FOR GFR 1.06 MG/DL (0.70-1.30); GLOMERULAR FILTRATION RATE > 60.0 (>56); GLUCOSE, FASTING 121 MG/DL (70-100); POTASSIUM SERUM 4.1 MEQ/L (3.5-5.1); SODIUM LEVEL 137 MEQ/L (136-145); TOTAL PROTEIN 5.1 GM/DL (6.4-8.2)
[2019-08-07] MEDS: HumaLOG INSULIN (NovoLOG) PER UNIT SC SCH ×4 (07:30→21:00)
[2019-08-07 08:40] VITALS: BP 160/72
[2019-08-07] MEDS: OMEPRAZOLE 20 MG CAP PO SCH (08:45)
[2019-08-07] MEDS: PARoxetine 20 MG TAB PO SCH (08:45)
[2019-08-07] MEDS: lisinopriL 40 MG TAB PO SCH (08:45)
[2019-08-07] MEDS: ASPIRIN 81 MG ENTERIC TAB PO SCH (08:45)
[2019-08-07] MEDS: ENOXAPARIN 40 MG/0.4 ML SYRINGE (J1650) SC SCH (08:46)
[2019-08-07] MEDS: ACETAMINOPHEN TAB 650MG DOSE (2X325MG) PO PRN ×2 (09:15→16:17)
--- NOTE | 2019-08-07 11:54 | IPNPDOC ---
Subjective Date Seen The patient was seen on 08/07/19. Subjective Chief Complaint/HPI c/o pain in leg currently Constitutional: Denies: Chills, Fever Pulmonary: Denies: Dyspnea, Cough Cardiovascular: Denies: Chest Pain, Palpitations, Orthopnea Gastrointestinal: Denies: Nausea, Vomiting, Abdominal Pain, Diarrhea, Constipation Musculoskeletal: Reports: Leg Pain Objective Physical Examination General Exam: Positive: Alert, No Acute Distress Chest Exam: Positive: Clear to auscultation, Normal air movement; Negative: Rales, Rhonchi, Wheezing Heart Exam: Positive: Rate Normal, Regular Rhythm Abdomen Exam: Positive: Normal bowel sounds, Soft; Negative: Tenderness Extremity Exam: Positive: Edema (RLE 2+ pitting edema to upper thigh), Other (erythematous rash over right LE) Assessment /Plan Problems (1) Cellulitis of right lower extremity Status: Acute Problem Text: cultures pending COnt IV abx Dr. Orellana following to help sort out etiology of leg edema. (2) Diabetes Status: Chronic Problem Text: Poorly controlled. (3) Nicotine addiction Status: Chronic Plan/VTE VTE Prophylaxis Ordered?: Yes VS, I&O, 24H, Fishbone Vital Signs/I&O Vital Signs Date Time Temp Pulse Resp B/P (MAP) Pulse Ox O2 Delivery O2 Flow Rate FiO2 08/07/19 11:00 16 Room Air 08/07/19 08:40 103 160/72 (101) 08/07/19 06:00 97.9 96 I&O- Last 24 Hours up to 6 AM 08/07/19 06:00 Intake Total 5770 ml Output Total 2375 ml Balance 3395 ml Laboratory Data 24H LABS Laboratory Tests 2 08/06/19 12:58: Immature Granulocyte % (Auto) , Nucleated Red Blood Cells % (auto) 0.0, Neutrophils 83H, Lymphocytes (Manual) 14L, Monocytes (Manual) 3, Red Blood Cell Morphology NORMAL, Platelet Estimate NORMAL, Estimated Mean Plasma Glucose 249H, Hemoglobin A1c 10.3 08/06/19 13:55: Bedside Glucose (Misc Panel) 180H 08/06/19 16:28: Blood Gas Bicarbonate Standard 19.9L, Arterial Blood pH 7.380, Arterial Blood Partial Pressure CO2 32.4L, Arterial Blood Partial Pressure O2 96.4, Arterial Blood Total CO2 19.7L, Arterial Blood HCO3 18.7L, Arterial Blood Base Excess - 5.5L, Arterial Blood Oxygen Saturation 97.4 08/06/19 17:07: Bedside Glucose (Misc Panel) 175H 08/06/19 20:39: Bedside Glucose (Misc Panel) 225H 08/07/19 06:00: Nucleated Red Blood Cells % (auto) 0.0, Anion Gap 8, Glomerular Filtration Rate > 60.0, Calcium Level 7.9L, Total Bilirubin 0.7, Aspartate Amino Transf (AST/SGOT) 63H, Alanine Aminotransferase (ALT/SGPT) 41, Alkaline Phosphatase 184H, Total Protein 5.1#L, Albumin 1.5#L, Albumin/Globulin Ratio 0.42L CBC/BMP Laboratory Tests 08/06/19 12:58 08/07/19 06:00 Microbiology Microbiology 08/06/19 Gram Stain - Final, Resulted 08/06/19 Wound Culture, Resulted Pending 08/06/19 Blood Culture, Received Pending 08/06/19 Blood Culture, Received Pending 08/06/19 Blood Culture - Preliminary, Resulted No growth after 24 hours . All specim... FRANCISCO JACKSON PA-C Aug 07, 2019 11:54
[2019-08-07 14:00] VITALS: BP 160/98
[2019-08-07 16:10] VITALS: BP 142/62
[2019-08-07] MEDS ORDERED: LEVEMIR (INSULIN DETEMIR) 1 UNITS/0.01ML SC SCH (21:00)
[2019-08-07 22:00] VITALS: BP 128/74
[2019-08-07] MEDS: ATORVASTATIN 20 MG TAB PO SCH (22:08)
[2019-08-07] MEDS: FENOFIBRATE 145 MG TAB (TRICOR) PO SCH (22:08)
[2019-08-07] MEDS: LEVEMIR (INSULIN DETEMIR) 1 UNITS/0.01ML SC SCH (22:08)
[2019-08-08] MEDS ORDERED: PERCOCET 5MG/325MG TAB PO PRN (01:45)
[2019-08-08] MEDS: PERCOCET 5MG/325MG TAB PO PRN ×4 (02:31→21:46)
[2019-08-08] MEDS: PIPERACILLIN/TAZOBACTAM SOD 3.375 GM in D5W MINI-BAG PLUS 50 ML IV SCH ×4 (04:20→21:44)
[2019-08-08] MEDS: VANCOMYCIN HCL 1,000 MG, VIAL MATE ADAPTER 1 EACH in D5W 250 ML IV SCH ×2 (05:28→17:34)
[2019-08-08 06:00] VITALS: BP 164/81
[2019-08-08] MEDS: VANCOMYCIN HCL 500 MG in D5W MINI-BAG PLUS 100 ML IV SCH ×2 (06:53→17:34)
[2019-08-08] MEDS: HumaLOG INSULIN (NovoLOG) PER UNIT SC SCH ×4 (07:30→21:00)
[2019-08-08] MEDS: ASPIRIN 81 MG ENTERIC TAB PO SCH (09:37)
[2019-08-08] MEDS: PARoxetine 20 MG TAB PO SCH (09:37)
[2019-08-08] MEDS: ENOXAPARIN 40 MG/0.4 ML SYRINGE (J1650) SC SCH (09:37)
[2019-08-08] MEDS: OMEPRAZOLE 20 MG CAP PO SCH (09:38)
[2019-08-08] MEDS: lisinopriL 40 MG TAB PO SCH (09:41)
--- NOTE | 2019-08-08 10:21 | IPNPDOC ---
Subjective Date Seen The patient was seen on 08/08/19. Subjective Chief Complaint/HPI Still c/o leg pain - Percocet only lasts 30 minutes or so Constitutional: Denies: Chills, Fever Pulmonary: Denies: Dyspnea, Cough Cardiovascular: Denies: Chest Pain, Palpitations, Orthopnea Gastrointestinal: Denies: Nausea, Vomiting, Abdominal Pain, Diarrhea, Constipat ion Objective Physical Examination General Exam: Positive: Alert, No Acute Distress Chest Exam: Positive: Clear to auscultation, Normal air movement; Negative: Rales, Rhonchi, Wheezing Heart Exam: Positive: Rate Normal, Regular Rhythm Abdomen Exam: Positive: Normal bowel sounds, Soft; Negative: Tenderness Extremity Exam: Positive: Edema (Still with RLE edema to the proximal thigh, but less tight), Other (erythematous rash over right LE - slightly less red) Skin Exam: Positive: Other skin issue (RLE with Ruptured blisters on posterior thigh and posterior lateral calf - slight amount of serous drainage) Assessment /Plan Problems (1) Cellulitis of right lower extremity Status: Acute Problem Text: Wound grew Coag neg staph B/C neg Improving with Vanco and Zosyn - Could probably scale back based on sensitivities, but failed outpatient po clinda Continue leg elevation Add Sulfa silvadene to ruptured blisters and dry sterile dressings. Increase Percocet to 2 tabs if needed for severe pain (2) Diabetes Status: Chronic Problem Text: [facility] HbA1c = 10.x Non-compliant with office visits - cancels appointments and does not come in for diabetes management Cont Lantus at current dose with SSI for now (3) Nicotine addiction Status: Chronic Plan/VTE VTE Prophylaxis Ordered?: Yes (Lovenox) Plan Therapy: PT VS, I&O, 24H, Fishbone Vital Signs/I&O Vital Signs Date Time Temp Pulse Resp B/P (MAP) Pulse Ox O2 Delivery O2 Flow Rate FiO2 08/08/19 09:38 16 Room Air 08/08/19 06:00 98.1 93 164/81 (108) 98 I&O- Last 24 Hours up to 6 AM 08/08/19 06:00 Intake Total 2110 ml Output Total 1125 ml Balance 985 ml Laboratory Data 24H LABS Laboratory Tests 2 08/07/19 11:57: Bedside Glucose (Misc Panel) 114H 08/07/19 12:00: Methicillin-Resist S.aureus DNA PCR NOT DETECTED 08/07/19 15:45: Vancomycin Level Trough 15.1 08/07/19 16:53: Bedside Glucose (Misc Panel) 99 08/07/19 20:40: Bedside Glucose (Misc Panel) 159H 08/08/19 06:26: Bedside Glucose (Misc Panel) 143H Microbiology Microbiology 08/06/19 Gram Stain - Final, Complete 08/06/19 Wound Culture - Final, Complete Staphylococcus Sp Coag Neg 08/06/19 Blood Culture - Preliminary, Resulted No growth after 24 hours . All specim... 08/06/19 Blood Culture - Preliminary, Resulted No growth after 24 hours . All specim... 08/06/19 Blood Culture - Preliminary, Resulted No Growth after 48 hours. All Specime... FRANCISCO JACKSON PA-C Aug 08, 2019 10:21
[2019-08-08 10:25] LABS: HEPATITIS B SURFACE ANTIGEN NEGATIVE (NEGATIVE)
[2019-08-08 10:52] LABS: HEPATITIS B CORE ANTIBODY IGM NEGATIVE (NEGATIVE); HEPATITIS C VIRUS ABY INDEX < 0.0 INDEX (<0.8)
[2019-08-08 10:55] LABS: HEPATITIS A ANTIBODY IGM NEGATIVE (NEGATIVE)
[2019-08-08 14:00] VITALS: BP 157/80
[2019-08-08] MEDS: SILVER SULFADIAZINE 1% CR 50 GM JAR TOP SCH (14:11)
[2019-08-08] MEDS ORDERED: LEVEMIR (INSULIN DETEMIR) 1 UNITS/0.01ML SC SCH (21:00)
[2019-08-08] MEDS: ATORVASTATIN 20 MG TAB PO SCH (21:44)
[2019-08-08] MEDS: LEVEMIR (INSULIN DETEMIR) 1 UNITS/0.01ML SC SCH (21:44)
[2019-08-08] MEDS: FENOFIBRATE 145 MG TAB (TRICOR) PO SCH (21:44)
[2019-08-08 22:00] VITALS: BP 156/79
[2019-08-09] MEDS: PIPERACILLIN/TAZOBACTAM SOD 3.375 GM in D5W MINI-BAG PLUS 50 ML IV SCH ×4 (03:30→22:51)
[2019-08-09 04:03] LABS: HEMOGLOBIN 9.5 g/dl (13.5-17.5); MEAN CORPUSCULAR HEMOGLOBIN 28.4 pg (27.0-33.0); MEAN CORPUSCULAR HGB CONC 31.7 g/dl (32.0-36.5); MEAN CORPUSCULAR VOLUME 89.8 fl (80.0-96.0); PLATELET COUNT, AUTOMATED 181 10^3/uL (150-450); RED BLOOD COUNT 3.34 10^6/uL (4.30-6.10); WHITE BLOOD COUNT 12.1 10^3/uL (4.0-10.0)
[2019-08-09 04:22] LABS: VANCOMYCIN LEVEL TROUGH 21.7 UG/ML (10.0-20.0)
[2019-08-09 05:27] LABS: BLOOD UREA NITROGEN 21 MG/DL (7-18); CALCIUM LEVEL 7.7 MG/DL (8.5-10.1); CARBON DIOXIDE LEVEL 29 MEQ/L (21-32); CHLORIDE LEVEL 104 MEQ/L (98-107); GLOMERULAR FILTRATION RATE > 60.0 (>56); GLUCOSE, FASTING 149 MG/DL (70-100); POTASSIUM SERUM 3.9 MEQ/L (3.5-5.1); SODIUM LEVEL 139 MEQ/L (136-145)
[2019-08-09] MEDS: PERCOCET 5MG/325MG TAB PO PRN ×3 (05:46→20:33)
--- NOTE | 2019-08-09 05:59 | PHACANCOPD ---
PHARMACY VANCOMYCIN DOSING Pt Demographics Demographics Patient Age:59 , Weight:108.000 , Gender: male Adjusted Body Weight Date: 08/06/19, Adjusted Body Weight: [91] Kg Vancomycin Vancomycin indication: SSTI Vancomycin Target Ranges: 10-20 mcg/ml Vancomycin Load Y/N: Yes Load Dose Date Time Date: 08/09/19. Current Vancomycin Dose: [750MG Q8H] Vancomycin Load Dose: 2000MG Date: 08/06/19 Time: 1700 Vancomycin Dose Date: 08/06/19. Current Vancomycin Dose: [ 1500mg q12h ] Intermittent Dosing?: No Labs Micro Microbiology 08/06/19 Gram Stain - Final, Complete 08/06/19 Wound Culture - Final, Complete Staphylococcus Sp Coag Neg 08/06/19 Blood Culture - Preliminary, Resulted No Growth after 48 hours. All Specime... 08/06/19 Blood Culture - Preliminary, Resulted No Growth after 48 hours. All Specime... 08/06/19 Blood Culture - Preliminary, Resulted No Growth after 48 hours. All Specime... Creatinine Clearance Date:08/09/19. Creatinine Clearance: [>100]. Date:08/06/19. Creatinine Clearance: [ 63.6 mL/min ]. Assessment and Plan Maintaining Current Dose?: No Reason for dose change: Trough too high Pharmacist Note Pharmacist Note Date: 08/09/19. Pharmacist note:Vancomycin trough drawn this am@3:55 reported as 21.7. SCR improved ,1.0 this a.m.,Calculated CRCL>100.Vancomycin dose will be adjusted to 750mg IV [id number] to begin @0900-as i believe patient may be accumulating a bit and also trough goal= 10-20). Next trough is scheduled for tomorrow@1600. Patient remains on Pip/Tazo 3.375gm q6h- will continue to follow Date: 08/06/19. Pharmacist note: Patient ROSITA is a 59 year old male who presented to the emergency department at [facility] after failing outpatient therapy of clindamycin to treat a right lower extremity cellulitis. He presents now with purulent cellulitis. He was started on broad-spectrum antibiotic therapy consisting of Zosyn 3.375 grams every six hours and vancomycin for methicillin-resistant S. aureus coverage. He has previously received vancomycin at [facility], but for this admission he presents with improved renal function. A loading dose of 2 grams was scheduled for this evening, with a maintenance dose of 1.5 grams every 12 hours starting tomorrow morning. His goal vancomycin trough is 10-20 mcg/dL. We will continue to monitor and make adjustments as needed. KANDICE GOODMAN PHARMAC[facility] Aug 09, 2019 05:59
[2019-08-09 06:00] VITALS: BP 150/72
--- NOTE | 2019-08-09 08:10 | IPNPDOC ---
Subjective Date Seen The patient was seen on 08/09/19. Subjective Chief Complaint/HPI Right leg swelling and pain unchanged. Slightly less red Constitutional: Denies: Chills, Fever Pulmonary: Denies: Dyspnea, Cough Cardiovascular: Denies: Chest Pain, Palpitations, Orthopnea Gastrointestinal: Denies: Nausea, Vomiting, Abdominal Pain, Diarrhea, Constipation Musculoskeletal: Reports: Leg Pain (from medial thihg to ankle) Objective Physical Examination General Exam: Positive: Alert, No Acute Distress Chest Exam: Positive: Clear to auscultation, Normal air movement; Negative: Rales, Rhonchi, Wheezing Heart Exam: Positive: Rate Normal, Regular Rhythm Abdomen Exam: Positive: Normal bowel sounds, Soft; Negative: Tenderness Extremity Exam: Positive: Edema (RLE 2+ pitting edema to upper thigh unchanged), Other (erythematous rash over right LE - slightly less erythematous currently) Skin Exam: Positive: Other skin issue (RLE with Ruptured blisters on posterior thigh and posterior lateral calf - slight amount of serous drainage) Assessment /Plan Problems (1) Right leg swelling Status: Acute Problem Text: Right leg swelling started after a fall over 2 weeks ago. Erythema and blistering occurred afterward. He has had 2 doppler US studies 07/29 and 08/06 - both negative for DVT. DP pulses 2+ right foot Etiology of swelling uncertain - Get dedicated imaging of the LE to r/o fracture considering pain and swelling started after fall and get CT abd pelvis to ev aluate for source of possible lymphatic obstruction Dr. Orellana saw patient in consultation on admission - may need to re-consult for advise or consider ortho eval. (2) Cellulitis of right lower extremity Status: Acute Problem Text: cultures grew coag neg staph - likely skin contaminate B/C negative MRSA screen negative - D/C Vanco Consider switching Zosyn to alternative agent since no pseudomonas cultured Cont Wound care and topical Sulfasilvadene (3) Diabetes Status: Chronic Problem Text: Poorly controlle as outpatient but blood sugars running only 90s - 140s here on much less insulin than at home compliance with diet and insulin as outpatient is questionable (4) Nicotine addiction Status: Chronic Plan/VTE VTE Prophylaxis Ordered?: Yes (Lovenox) Plan Therapy: PT VS, I&O, 24H, Fishbone Vital Signs/I&O Vital Signs Date Time Temp Pulse Resp B/P (MAP) Pulse Ox O2 Delivery O2 Flow Rate FiO2 08/09/19 06:16 18 08/09/19 06:00 97.1 89 150/72 (98) 98 Room Air I&O- Last 24 Hours up to 6 AM 08/09/19 06:00 Intake Total 2920 ml Output Total 950 ml Balance 1970 ml Laboratory Data 24H LABS Laboratory Tests 2 08/08/19 11:12: Bedside Glucose (Misc Panel) 96 08/08/19 16:31: Bedside Glucose (Misc Panel) 98 08/08/19 21:19: Bedside Glucose (Misc Panel) 137H 08/09/19 03:55: Nucleated Red Blood Cells % (auto) 0.0, Anion Gap 6L, Glomerular Filtration Rate > 60.0, Calcium Level 7.7L, Vancomycin Level Trough 21.7H CBC/BMP Laboratory Tests 08/09/19 03:55 Microbiology Microbiology 08/06/19 Gram Stain - Final, Complete 08/06/19 Wound Culture - Final, Complete Staphylococcus Sp Coag Neg 08/06/19 Blood Culture - Preliminary, Resulted No Growth after 48 hours. All Specime... 08/06/19 Blood Culture - Preliminary, Resulted No Growth after 48 hours. All Specime... 08/06/19 Blood Culture - Preliminary, Resulted No Growth after 48 hours. All Specime... FRANCISCO JACKSON PA-C Aug 09, 2019 08:10
[2019-08-09] MEDS: HumaLOG INSULIN (NovoLOG) PER UNIT SC SCH ×4 (08:25→20:21)
[2019-08-09] MEDS: PARoxetine 20 MG TAB PO SCH (08:26)
[2019-08-09] MEDS: lisinopriL 40 MG TAB PO SCH (08:26)
[2019-08-09] MEDS: ASPIRIN 81 MG ENTERIC TAB PO SCH (08:26)
[2019-08-09] MEDS: ENOXAPARIN 40 MG/0.4 ML SYRINGE (J1650) SC SCH (08:26)
[2019-08-09] MEDS: OMEPRAZOLE 20 MG CAP PO SCH (08:26)
[2019-08-09] MEDS: SILVER SULFADIAZINE 1% CR 50 GM JAR TOP SCH (08:27)
[2019-08-09] MEDS ORDERED: VANCOMYCIN HCL 750 MG, VIAL MATE ADAPTER 1 EACH in D5W 250 ML IV SCH (09:00)
[2019-08-09] MEDS ORDERED: ISOVUE-370 76% 100ML VIAL (Q9967) As Ordered ONE (09:15)
--- NOTE | 2019-08-09 09:17 | REP ---
Right knee four views : There is no fracture or dislocation. Mineralization and joint spaces are normal. There are no calcifications or foreign bodies. Impression: Negative right knee . Electronically Signed by Hoang De León MD 08/09/2019 09:09 A
--- NOTE | 2019-08-09 09:18 | REP ---
Right femur four views : There is no fracture or dislocation. Mineralization and joint spaces are normal. There are no calcifications or foreign bodies. Impression: Negative right femur . Electronically Signed by Hoang De León MD 08/09/2019 09:09 A
[2019-08-09] MEDS: GASTROGRAFIN SOLUTION 30ML PO SCH ×2 (10:07→10:56)
[2019-08-09 14:00] VITALS: BP 154/74
--- NOTE | 2019-08-09 18:25 | REP ---
CT abdomen and pelvis with IV and oral contrast: History: Left lower extremity edema. Rule out lymphatic obstructive process. Comparison CT study December 21, 2018. CT contrast dose: 100 ml of intravenous Isovue [address] findings: The patient is rotated to the right for the exam. Preliminary digital custom home installer radiograph demonstrates a normal bowel gas pattern. There is mild plate-like atelectasis in the right lower lobe. No pleural effusion is seen. No focal hepatic lesion is seen. The spleen is homogeneous. It is enlarged moderately. It measures 17.5 cm in greatest dimension. 12 cm there is a felt to be in the upper range of normal. No adrenal abnormality is seen. No abnormalities noted in the pancreas. The gallbladder is unremarkable. No retroperitoneal mass or adenopathy is seen. Normal appendix is noted in the right lower quadrant. There is left colonic diverticulosis without CT evidence of diverticulitis. 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 This is unchanged from comparison CT study December 21, 2018. No abdominal wall defect is seen. Urinary bladder and seminal vesicles and prostate are unremarkable. The femoral veins are unremarkable. Kidneys enhance symmetrically are morphologically intact. There is some cortical atrophy in the upper pole of the right kidney. This is unchanged. Impression: Left colonic diverticulosis without CT evidence of diverticulitis. Splenomegaly unchanged. No evidence of pelvic mass or adenopathy. No abdominal wall defect seen. Electronically Signed by To Eastman MD 08/09/2019 06:53 P
[2019-08-09] MEDS: LEVEMIR (INSULIN DETEMIR) 1 UNITS/0.01ML SC SCH (20:32)
[2019-08-09] MEDS: ATORVASTATIN 20 MG TAB PO SCH (20:32)
[2019-08-09] MEDS: FENOFIBRATE 145 MG TAB (TRICOR) PO SCH (20:32)
[2019-08-09 22:00] VITALS: BP 144/89
[2019-08-10] MEDS: PERCOCET 5MG/325MG TAB PO PRN ×4 (04:02→22:27)
[2019-08-10] MEDS: PIPERACILLIN/TAZOBACTAM SOD 3.375 GM in D5W MINI-BAG PLUS 50 ML IV SCH ×4 (04:02→21:27)
[2019-08-10 06:00] VITALS: BP 151/66
[2019-08-10 06:36] LABS: BLOOD UREA NITROGEN 20 MG/DL (7-18); CALCIUM LEVEL 7.6 MG/DL (8.5-10.1); CARBON DIOXIDE LEVEL 30 MEQ/L (21-32); CHLORIDE LEVEL 102 MEQ/L (98-107); CREATININE FOR GFR 1.08 MG/DL (0.70-1.30); GLOMERULAR FILTRATION RATE > 60.0 (>56); GLUCOSE, FASTING 227 MG/DL (70-100); SODIUM LEVEL 138 MEQ/L (136-145)
[2019-08-10] MEDS: OMEPRAZOLE 20 MG CAP PO SCH (09:05)
[2019-08-10] MEDS: PARoxetine 20 MG TAB PO SCH (09:06)
[2019-08-10] MEDS: lisinopriL 40 MG TAB PO SCH (09:06)
[2019-08-10] MEDS: ASPIRIN 81 MG ENTERIC TAB PO SCH (09:06)
[2019-08-10] MEDS: SILVER SULFADIAZINE 1% CR 50 GM JAR TOP SCH (09:07)
[2019-08-10] MEDS: ENOXAPARIN 40 MG/0.4 ML SYRINGE (J1650) SC SCH (09:07)
[2019-08-10] MEDS: HumaLOG INSULIN (NovoLOG) PER UNIT SC SCH ×4 (09:08→21:23)
--- NOTE | 2019-08-10 09:33 | IPNPDOC ---
Subjective Date Seen The patient was seen on 08/10/19. Subjective Chief Complaint/HPI Still with pain and swelling right leg unchanged Constitutional: Denies: Chills, Fever Pulmonary: Denies: Dyspnea, Cough Cardiovascular: Denies: Chest Pain, Palpitations, Orthopnea Gastrointestinal: Denies: Nausea, Vomiting, Abdominal Pain, Diarrhea, Consti pation Objective Physical Examination General Exam: Positive: Alert, No Acute Distress Chest Exam: Positive: Clear to auscultation, Normal air movement; Negative: Rales, Rhonchi, Wheezing Heart Exam: Positive: Rate Normal, Regular Rhythm Abdomen Exam: Positive: Normal bowel sounds, Soft; Negative: Tenderness Extremity Exam: Positive: Edema (RLE 2+ pitting edema to upper thigh unchanged), Other (erythematous rash over right LE - slightly less erythematous currently) Skin Exam: Positive: Other skin issue (RLE with Ruptured blisters on posterior thigh and posterior lateral calf - slight amount of serous drainage) Assessment /Plan Problems (1) Right leg swelling Status: Acute Problem Text: Right leg swelling started after a fall over 2 weeks ago. Erythema and blistering occurred afterward. He has had 2 doppler US studies 07/29 and 08/06 - both negative for DVT. Femur and knee x-rays 08/09 negative for fractures CTabd/pelvis 08/09 negative for intra-abdominal cause for obstruction of lymphatic drainage DP pulses 2+ right foot Etiology of swelling uncertain - Get MRI to loose more closely for soft tissue injury Continue leg elevation Consider adding JERAMIE compression Was on Vacno until 08/08 - d/c'd when MRSA screen came back negative Zoamy Rangel#4 Consult ID for further recommendations for abx Wound Culture on admission: STAPHYLOCOCCUS SP COAG NEG QUANTITY OF GROWTH HEAVY FULL REPORT IN LAB NOTES (eCW and [facility]). 1. STAPHYLOCOCCUS SP COAG NEG RX Route Dose M.I.C. ----- ----- --------- ICR (INDUCIBLE CC RESISTANCE) - TETRACYCLINE R PO 250 mg qid >=16 PENICILLIN G R PO 250mg q6h fasting >=0.5 R IV 1 mu q6h TRIMETHOPRIM/SULFAMETHOXAZOLE S PO Bactrim DS Bid <=10 S IV 160mg TMP & 800mg SMXq6h ERYTHROMYCIN R PO 500mg q6h >=8 R IV 500mg q6h GENTAMICIN I IV 80mg q8h 8 CLINDAMYCIN S PO 150mg q6h 0.5 S IV 600mg q6h OXACILLIN S IV 500mg q6h <=0.25 VANCOMYCIN S IV 500mg q8h <=0.5 LINEZOLID (ZYVOX) S PO 600MG Q12HR 1 S IV 600MG Q12HR DAPTOMYCIN S 0.25 (2) Cellulitis of right lower extremity Status: Acute Problem Text: cultures grew coag neg staph - likely skin contaminate B/C negative MRSA screen negative - See above - consultiung ID Cont Wound care and topical Sulfasilvadene (3) Diabetes Status: Chronic Problem Text: Poorly controlled as outpatient but blood sugars running only 90s - 140s here on much less insulin than at home compliance with diet and insulin as outpatient is questionable (4) Nicotine addiction Status: Chronic Plan/VTE VTE Prophylaxis Ordered?: Yes (Lovenox) Plan Therapy: PT VS, I&O, 24H, Fishbone Vital Signs/I&O Vital Signs Date Time Temp Pulse Resp B/P (MAP) Pulse Ox O2 Delivery O2 Flow Rate FiO2 08/10/19 09:06 18 08/10/19 06:00 99.0 87 151/66 (94) 95 Room Air I&O- Last 24 Hours up to 6 AM 08/10/19 05:59 Intake Total 800 ml Output Total 500 ml Balance 300 ml Laboratory Data 24H LABS Laboratory Tests 2 08/09/19 12:34: Bedside Glucose (Misc Panel) 138H 08/09/19 16:36: Bedside Glucose (Misc Panel) 142H 08/09/19 20:17: Bedside Glucose (Misc Panel) 204H 08/10/19 05:44: Anion Gap 6L, Glomerular Filtration Rate > 60.0, Calcium Level 7.6L CBC/BMP Laboratory Tests 08/10/19 05:44 Microbiology Microbiology 08/06/19 Gram Stain - Final, Complete 08/06/19 Wound Culture - Final, Complete Staphylococcus Sp Coag Neg 08/06/19 Blood Culture - Preliminary, Resulted No Growth after 72 hours. All specime... 08/06/19 Blood Culture - Preliminary, Resulted No Growth after 72 hours. All specime... 08/06/19 Blood Culture - Preliminary, Resulted No Growth after 72 hours. All specime... FRANCISCO JACKSON PA-C Aug 10, 2019 09:33
[2019-08-10 14:00] VITALS: BP 140/76
[2019-08-10] MEDS: VANCOMYCIN HCL 750 MG, VIAL MATE ADAPTER 1 EACH in D5W 250 ML IV SCH (17:39)
--- NOTE | 2019-08-10 17:41 | CR.PDOC ---
General Date of Consultation: Aug 10, 2019 Attending Physician: Ernie Moran MD Consultation REASON FOR CONSULTATION/CHIEF COMPLAINT: Soft Tissue Infection HISTORY OF PRESENT ILLNESS: Patient is a 59-year-old male past medical history significant for insulin-dependent diabetes mellitus type 2 and hypertension, who presented to the emergency department on 08/06/2019 complaining of progressively worsening right lower extremity pain and swelling began approximately 2 and half weeks ago following a fall from standing height onto his left lateral leg. 2 days after the incident, patient reported noticing pain and swelling in his right lower extremity. He presented twice to urgent care and was diagnosed with muscle strains. Patient also presented to [facility] emergency department on 07/29, received a lower extremity ultrasound was found to be negative for DVT and patient was sent home. Patient had presented to urgent care for a third time at which point he was prescribed 10 day course of clindamycin. When he presented to the emergency department, patient was found to have a leukocytosis and mild anemia a CRP of 24.9 d-dimer of 3647, glucose of 225. Patient's leg was noted to be warm with petechia. Fluctuant blister was noted overlying the fibular head. 2+ lowers right pitting edema and 2+ pedal edema was noted. Serous discharge noted on the posterior aspect of the patient's thigh. Patient was initially started on Zosyn and vancomycin. Patient was evaluated by surgery who believed patient's significant lower extremity erythema to be reactive in origin. No surgical intervention was recommended at that time. Patient was continued on the after mentioned antibiotics and encouraged to keep his leg elevated. With subsequent days, patient's clinical condition appeared to steadily improve. MRSA screen was performed and patient's vancomycin was discontinued following 2 full days of administration, after which, patient's condition. Wound culture positive for only staphylococcus. Stagnant and infectious disease was consulted for further evaluation and management patient's antibiotics. REVIEW OF SYSTEMS: CONSTITUTIONAL: Patient denies any recent fever fevers, chills, night sweats, changes in weight HEENT: Denies any headaches, changes in vision, changes in hearing, difficulty swallowing or sore throat. CARDIOVASCULAR: Denies chest pain, chest pressure or palpitations. RESPIRATORY:. Denies dyspnea, cough, or pleuritic chest pain. GASTROINTESTINAL: Denies any luda abdominal pain, no nausea or vomiting no difficulty stooling. GENITOURINARY: Denies dysuria or hematuria. SKIN: Patient continues to report significant pain with light palpation of his left lower extremity. He states it is very difficult to ambulate secondary to pain, though he is able to move his leg if needed. NEUROLOGICAL: Denies headache, feeling lightheaded, dizziness, or syncope. 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 States he has not smoked though over the past 3 weeks. -Drinks alcohol on a very rare basis (approximately 1-2 drinks per year) -Denies current or former illicit drug use Professional Tattoos. FAMILY HISTORY: Small cell lung cancer (mother, in 1998) PHYSICAL EXAMINATION: Gen.: Patient interviewed and examined in his hospital bed. Patient was alert and oriented. He was in no acute distress. He is able to answer questions appropriately regarding his medical history he is actively participate in his care. Heart: Regular rate and rhythm, normal S1 and S2 without any murmurs Respiratory: Clear to auscultation bilaterally both anterior and posterior lung irizarry. No wheezes rales or rhonchi appreciated Abdomen: Soft, nontender, nondistended, obese Extremity: 2+ pitting edema to the inguinal ligament on the right lower extremity. Erythematous and tight over the the right lower extremity, particularly the lower leg. Notable ruptured blisters on posterior thigh, posterior lateral calf and anterior lateral calf. Unrelated healing wounds wounds noted on patient's right elbow and left lomax. Psych: Mood and affect are appropriate given patient's current medical condition. LABORATORY DATA: Please see below. ASSESSMENT/PLAN: #Right lower extremity cellulitis CT imaging negative for pelvic adenopathy. MRI of extremity is pending. Suspect staphylococcus myositis vs soft-tissue abscess. Wound cultures for Staphylococcus species, coag negative. Possible skin sravani. Patient has now completed 9/10 days of outpatient clindamycin. Currently on day 4 of Zosyn. Patient was started on vancomycin at admission which continued until 08/08/19 and a discontinued following negative MRSA screen. It was at that time that patient's clinical improvement became notably delayed. Following evaluation, we suggest patient restart vancomycin at a dose of 750 mg Q8hr. Continued extremity elevation recommended. Continue to follow patient and make changes pending results of upcoming imaging study. Vital Signs/I&O Vital Signs Date Time Temp Pulse Resp B/P (MAP) Pulse Ox O2 Delivery O2 Flow Rate FiO2 08/10/19 15:27 15 08/10/19 14:00 99.6 88 140/76 (97) 95 08/10/19 06:00 Room Air I&O- Last 24 Hours up to 6 AM 08/10/19 06:00 Intake Total 800 ml Output Total 100 ml Balance 700 ml Laboratory Data Labs 24H Laboratory Tests 2 08/09/19 20:17: Bedside Glucose (Misc Panel) 204H 08/10/19 05:44: Anion Gap 6L, Glomerular Filtration Rate > 60.0, Calcium Level 7.6L, C-Reactive Protein, Quantitative 10.90H 08/10/19 10:47: Bedside Glucose (Misc Panel) 121H 08/10/19 11:51: Bedside Glucose (Misc Panel) 151H 08/10/19 16:24: Bedside Glucose (Misc Panel) 221H CBC/BMP Laboratory Tests 08/10/19 05:44 Microbiology Microbiology 08/06/19 Gram Stain - Final, Complete 08/06/19 Wound Culture - Final, Complete Staphylococcus Sp Coag Neg 08/06/19 Blood Culture - Preliminary, Resulted No Growth after 72 hours. All specime... 08/06/19 Blood Culture - Preliminary, Resulted No Growth after 72 hours. All specime... 08/06/19 Blood Culture - Preliminary, Resulted No Growth after 72 hours. All specime... Allergies Coded Allergies: metformin (Verified Adverse Reaction, Unknown, DIARRHEA, 07/29/19) Home Medications Scheduled Aspirin (Aspirin EC) 81 Mg Tab, 81 MG PO DAILY, (Reported) Atorvastatin Calcium (Atorvastatin Calcium) 40 Mg Tab, 40 MG PO QHS, (Reported) Clindamycin HCl (Clindamycin HCl) 300 Mg Capsule, 300 MG PO BID, (Reported) FOR 10 DAYS, FILLED 07/31/19 Empagliflozin (Jardiance) 25 Mg Tablet, 25 MG PO DAILY, (Reported) Ergocalciferol (Vitamin D2) (Drisdol) 1,250 Mcg Capsule, 50,000 UNITS PO QWEEK, (Reported) MONDAYS Fenofibrate (Fenofibrate) 160 Mg Tab, 160 MG PO DAILY, (Reported) Glyburide (Glyburide) 5 Mg Tab, 5 MG PO BID, (Reported) Insulin Glargine,Hum.rec.anlog (Toujeo Solostar) 300 Unit/1 Ml Insuln.pen, 120 UNITS SC QHS, (Reported) Lisinopril (Lisinopril) 40 Mg Tablet, 40 MG PO DAILY, (Reported) Omeprazole (Omeprazole) 20 Mg Cap, 20 MG PO DAILY, (Reported) Paroxetine HCl (Paroxetine HCl) 20 Mg Tablet, 20 MG PO DAILY, (Reported) Scheduled PRN Hydrocodone/Acetaminophen (Hydrocodone-Acetamin 5-300 mg) 1 Each Tablet, 1 TAB PO TID PRN for PAIN, (Reported) Ibuprofen (Ibuprofen) 800 Mg Tablet, 800 MG PO TID PRN for PAIN, (Reported) GME ATTESTATION GME ATTESTATION My faculty preceptor for this patient encounter was physically present during the encounter and was fully available. All aspects of the patient interview, examination, medical decision making process, and medical care plan development were reviewed and approved by the faculty preceptor. The faculty preceptor is aware and concurs with the plan as stated in the body of this note and will attest to such by his/her cosignature. KATHARINE ALMANZA DO Aug 10, 2019 17:01
[2019-08-10] MEDS: FENOFIBRATE 145 MG TAB (TRICOR) PO SCH (21:22)
[2019-08-10] MEDS: ATORVASTATIN 20 MG TAB PO SCH (21:22)
[2019-08-10] MEDS: LEVEMIR (INSULIN DETEMIR) 1 UNITS/0.01ML SC SCH (21:26)
[2019-08-10 22:00] VITALS: BP 146/59
[2019-08-11] MEDS: VANCOMYCIN HCL 750 MG, VIAL MATE ADAPTER 1 EACH in D5W 250 ML IV SCH ×3 (01:36→18:33)
[2019-08-11] MEDS: PERCOCET 5MG/325MG TAB PO PRN ×4 (04:15→22:51)
[2019-08-11] MEDS: PIPERACILLIN/TAZOBACTAM SOD 3.375 GM in D5W MINI-BAG PLUS 50 ML IV SCH ×4 (04:16→22:52)
[2019-08-11 06:00] VITALS: BP 147/59
[2019-08-11 06:46] LABS: BLOOD UREA NITROGEN 20 MG/DL (7-18); CALCIUM LEVEL 7.8 MG/DL (8.5-10.1); CARBON DIOXIDE LEVEL 31 MEQ/L (21-32); CHLORIDE LEVEL 101 MEQ/L (98-107); CREATININE FOR GFR 1.16 MG/DL (0.70-1.30); GLOMERULAR FILTRATION RATE > 60.0 (>56); GLUCOSE, FASTING 280 MG/DL (70-100); POTASSIUM SERUM 3.8 MEQ/L (3.5-5.1); SODIUM LEVEL 135 MEQ/L (136-145)
[2019-08-11] MEDS: ASPIRIN 81 MG ENTERIC TAB PO SCH (10:11)
[2019-08-11] MEDS: PARoxetine 20 MG TAB PO SCH (10:11)
[2019-08-11] MEDS: lisinopriL 40 MG TAB PO SCH (10:11)
[2019-08-11] MEDS: OMEPRAZOLE 20 MG CAP PO SCH (10:11)
[2019-08-11] MEDS: ENOXAPARIN 40 MG/0.4 ML SYRINGE (J1650) SC SCH (10:11)
[2019-08-11] MEDS: SILVER SULFADIAZINE 1% CR 50 GM JAR TOP SCH (10:12)
--- NOTE | 2019-08-11 10:52 | IPNPDOC ---
Subjective Date Seen The patient was seen on 08/11/19. Subjective Chief Complaint/HPI continued discomfort in right leg w/o discernible improvement. no SALAS, no chills. Constitutional: Denies: Chills, Fever ENT: Denies: Head Aches Skin: Reports: Rash (blisters on calf, posterior thigh, right. these have opened and dried. minimal ooze) Pulmonary: Denies: Dyspnea Cardiovascular: Denies: Chest Pain Gastrointestinal: Denies: Nausea, Abdominal Pain Hematologic: Denies: Bruising Musculoskeletal: Denies: Neck Pain Neurological: Reports: Numbness (chronic neuropathy); Denies: Weakness Psych: Reports: Mood Normal Objective Physical Examination General Exam: Positive: Alert, No Acute Distress Chest Exam: Positive: Clear to auscultation, Normal air movement; Negative: Rales, Rhonchi, Wheezing Heart Exam: Positive: Rate Normal, Regular Rhythm Abdomen Exam: Positive: Normal bowel sounds, Soft; Negative: Tenderness Extremity Exam: Positive: Edema (RLE 2+ pitting edema to upper thigh unchanged), Normal pulses, Other (erythematous rash over right LE - slightly less erythematous currently. indurated, tender. especially poteromedial thigh on right) Skin Exam: Positive: Other skin issue (RLE with Ruptured blisters on posterior thigh and posterior lateral calf - slight amount of serous drainage) Neuro Exam: Positive: Normal Speech Psych Exam: Positive: Mental status NL Assessment /Plan Problems (1) Right leg swelling Status: Acute Problem Text: 08/12 patient reports culture was collected from right calf, from area of previous blister that had been open before the culture collected so likely represents skin sravani. Ordered MRI has not yet been performed. Right leg swelling started after a fall over 2 weeks ago. Erythema and blistering occurred afterward. He has had 2 doppler US studies 07/29 and 08/06 - both negative for DVT. Femur and knee x-rays 08/09 negative for fractures CTabd/pelvis 08/09 negative for intra-abdominal cause for obstruction of lymphatic drainage DP pulses 2+ right foot Etiology of swelling uncertain - Get MRI to loose more closely for soft tissue injury Continue leg elevation Consider adding JERAMIE compression Was on Vacno until 08/08 - d/c'd when MRSA screen came back negative Dyan Rangel#4 Consult ID for further recommendations for abx Wound Culture on admission: STAPHYLOCOCCUS SP COAG NEG QUANTITY OF GROWTH HEAVY FULL REPORT IN LAB NOTES (eCW and Medent). 1. STAPHYLOCOCCUS SP COAG NEG RX Route Dose M .I.C. ----- ----- --------- ICR (INDUCIBLE CC RESISTANCE) - TETRACYCLINE R PO 250 mg qid >=16 PENICILLIN G R PO 250mg q6h fasting >=0.5 R IV 1 mu q6h TRIMETHOPRIM/SULFAMETHOXAZOLE S PO Bactrim DS Bid <=10 S IV 160mg TMP & 800mg SMXq6h ERYTHROMYCIN R PO 500mg q6h >=8 R IV 500mg q6h GENTAMICIN I IV 80mg q8h 8 CLINDAMYCIN S PO 150mg q6h 0.5 S IV 600mg q6h OXACILLIN S IV 500mg q6h <=0.25 VANCOMYCIN S IV 500mg q8h <=0.5 LINEZOLID (ZYVOX) S PO 600MG Q12HR 1 S IV 600MG Q12HR DAPTOMYCIN S 0.25 (2) Cellulitis of right lower extremity Status: Acute Problem Specific Plan: Consult Specialist Problem Text: 08/12 see comments above re culture. now back on Vanco at rec of Dr. Moran (but may not provide optimal suppression of MSSA if present.) Suspect that his neuropathy allowed the infection to become significantly worse before he recognized the threat. cultures grew coag neg staph - likely skin contaminate B/C negative MRSA screen negative - See above - consultiung ID Cont Wound care and topical Sulfasilvadene (3) Diabetes Status: Chronic Problem Text: Poorly controlled as outpatient but blood sugars running only 90s - 140s here on much less insulin than at home compliance with diet and insulin as outpatient is questionable (4) Nicotine addiction Status: Chronic Response to Treatment: Stable Plan/VTE VTE Prophylaxis Ordered?: Yes (Lovenox) Plan Therapy: PT VS, I&O, 24H, Fishbone Vital Signs/I&O Vital Signs Date Time Temp Pulse Resp B/P (MAP) Pulse Ox O2 Delivery O2 Flow Rate FiO2 08/11/19 10:11 18 08/11/19 06:00 98.4 86 147/59 (88) 91 Room Air I&O- Last 24 Hours up to 6 AM 1/25/20 05:59 Intake Total 780 ml Output Total 0 ml Balance 780 ml Laboratory Data 24H LABS Laboratory Tests 2 08/10/19 10:47: Bedside Glucose (Misc Panel) 121H 08/10/19 11:51: Bedside Glucose (Misc Panel) 151H 08/10/19 16:24: Bedside Glucose (Misc Panel) 221H 08/10/19 20:27: Bedside Glucose (Misc Panel) 254H 08/11/19 05:58: Anion Gap 3L, Glomerular Filtration Rate > 60.0, Calcium Level 7.8L CBC/BMP Laboratory Tests 08/11/19 05:58 Microbiology Microbiology 08/06/19 Gram Stain - Final, Complete 08/06/19 Wound Culture - Final, Complete Staphylococcus Sp Coag Neg 08/06/19 Blood Culture - Preliminary, Resulted No Growth after 72 hours. All specime... 08/06/19 Blood Culture - Preliminary, Resulted No Growth after 72 hours. All specime... 08/06/19 Blood Culture - Final, Complete NO GROWTH AFTER 5 DAYS Ruperto Mendoza MD Aug 11, 2019 10:52
[2019-08-11] MEDS: HumaLOG INSULIN (NovoLOG) PER UNIT SC SCH ×4 (11:00→21:00)
[2019-08-11 14:00] VITALS: BP 144/61
[2019-08-11] MEDS: LEVEMIR (INSULIN DETEMIR) 1 UNITS/0.01ML SC SCH (21:00)
[2019-08-11] MEDS ORDERED: LEVEMIR (INSULIN DETEMIR) 1 UNITS/0.01ML SC ONE (21:30)
[2019-08-11 22:00] VITALS: BP 148/62
[2019-08-11] MEDS: ATORVASTATIN 20 MG TAB PO SCH (22:04)
[2019-08-11] MEDS: FENOFIBRATE 145 MG TAB (TRICOR) PO SCH (22:05)
[2019-08-12] MEDS: VANCOMYCIN HCL 750 MG, VIAL MATE ADAPTER 1 EACH in D5W 250 ML IV SCH ×3 (02:01→18:09)
--- NOTE | 2019-08-12 02:22 | PHACANCOPD ---
PHARMACY VANCOMYCIN DOSING Pt Demographics Demographics Patient Age:59 , Weight:108.000 , Gender: male Adjusted Body Weight Date: 08/06/19, Adjusted Body Weight: [91] Kg Vancomycin Vancomycin indication: SSTI Vancomycin Target Ranges: 10-20 mcg/ml Vancomycin Load Y/N: Yes Load Dose Date Time Date: 08/09/19. Current Vancomycin Dose: [750MG Q8H] Vancomycin Load Dose: 2000MG Date: 08/06/19 Time: 1700 Vancomycin Dose Date: 08/06/19. Current Vancomycin Dose: [ 1500mg q12h ] Intermittent Dosing?: No Labs Micro Microbiology 08/06/19 Gram Stain - Final, Complete 08/06/19 Wound Culture - Final, Complete Staphylococcus Sp Coag Neg 08/06/19 Blood Culture - Final, Complete NO GROWTH AFTER 5 DAYS 08/06/19 Blood Culture - Final, Complete NO GROWTH AFTER 5 DAYS 08/06/19 Blood Culture - Final, Complete NO GROWTH AFTER 5 DAYS Creatinine Clearance Date:08/09/19. Creatinine Clearance: [>100]. Date:08/06/19. Creatinine Clearance: [ 63.6 mL/min ]. Assessment and Plan Maintaining Current Dose?: Yes Reason for dose change: No Dose Change Pharmacist Note Pharmacist Note Date: 08/12/19. Pharmacist note:Vancomycin trough drawn tonight@1:18 reported as 15.3(goal=15-20).SCR slightly increased 08/11@1.16(CRCL=78.5 calculated)Will con tinue w/current Vancomycin regimen of 750mg IV Q8H.also continuing is Pip/Tazo 3.375 gm q6h.-will continue to follow Date: 08/09/19. Pharmacist note:Vancomycin trough drawn this am@3:55 reported as 21.7. SCR improved ,1.0 this a.m.,Calculated CRCL>100.Vancomycin dose will be adjusted to 750mg IV [id number] to begin @0900-as i believe patient may be accumulating a bit and also trough goal= 10-20). Next trough is scheduled for tomorrow@1600. Patient remains on Pip/Tazo 3.375gm q6h- will continue to follow Date: 08/06/19. Pharmacist note: Patient ROSITA is a 59 year old male who presented to the emergency department at [facility] after failing outpatient therapy of clindamycin to treat a right lower extremity cellulitis. He presents now with purulent cellulitis. He was started on broad-spectrum antibiotic therapy consisting of Zosyn 3.375 grams every six hours and vancomycin for methicillin-resistant S. aureus coverage. He has previously received vancomycin at [facility], but for this admission he presents with improved renal function. A loading dose of 2 grams was scheduled for this evening, with a maintenance dose of 1.5 grams every 12 hours starting tomorrow morning. His goal vancomycin trough is 10-20 mcg/dL. We will continue to monitor and make adjustments as needed. [facility]AND[facility] Aug 12, 2019 02:22
[2019-08-12] MEDS: PERCOCET 5MG/325MG TAB PO PRN ×3 (04:29→13:57)
[2019-08-12] MEDS: PIPERACILLIN/TAZOBACTAM SOD 3.375 GM in D5W MINI-BAG PLUS 50 ML IV SCH ×4 (04:47→21:51)
[2019-08-12 05:54] LABS: HEMOGLOBIN 8.9 g/dl (13.5-17.5); MEAN CORPUSCULAR HEMOGLOBIN 28.6 pg (27.0-33.0); MEAN CORPUSCULAR HGB CONC 31.8 g/dl (32.0-36.5); PLATELET COUNT, AUTOMATED 290 10^3/uL (150-450); RED BLOOD COUNT 3.11 10^6/uL (4.30-6.10); WHITE BLOOD COUNT 9.6 10^3/uL (4.0-10.0)
[2019-08-12 06:00] VITALS: BP 160/70
[2019-08-12 06:15] LABS: BLOOD UREA NITROGEN 16 MG/DL (7-18); C REACTIVE PROTEIN QUANTITATIV 7.92 MG/DL (0.00-0.30); CARBON DIOXIDE LEVEL 31 MEQ/L (21-32); CHLORIDE LEVEL 101 MEQ/L (98-107); CREATININE FOR GFR 1.05 MG/DL (0.70-1.30); GLOMERULAR FILTRATION RATE > 60.0 (>56); GLUCOSE, FASTING 222 MG/DL (70-100); POTASSIUM SERUM 3.7 MEQ/L (3.5-5.1); SODIUM LEVEL 135 MEQ/L (136-145)
[2019-08-12] MEDS: ENOXAPARIN 40 MG/0.4 ML SYRINGE (J1650) SC SCH (09:27)
[2019-08-12] MEDS: lisinopriL 40 MG TAB PO SCH (09:28)
[2019-08-12] MEDS: ASPIRIN 81 MG ENTERIC TAB PO SCH (09:28)
[2019-08-12] MEDS: PARoxetine 20 MG TAB PO SCH (09:28)
[2019-08-12] MEDS: OMEPRAZOLE 20 MG CAP PO SCH (09:28)
[2019-08-12] MEDS: HumaLOG INSULIN (NovoLOG) PER UNIT SC SCH ×4 (09:29→21:00)
[2019-08-12] MEDS: SILVER SULFADIAZINE 1% CR 50 GM JAR TOP SCH (09:29)
--- NOTE | 2019-08-12 11:15 | IPNPDOC ---
Subjective Date Seen The patient was seen on 08/12/19. Subjective Chief Complaint/HPI leg still hurts, he doesn't feel any pain improvement. Constitutional: Denies: Chills, Night Sweats Eyes: Denies: Vision change Skin: Reports: Rash (right calf and medial thigh blisters have not reformed, continues to weep a bit) Pulmonary: Denies: Dyspnea Cardiovascular: Denies: Chest Pain Gastrointestinal: Denies: Nausea, Abdominal Pain Hematologic: Denies: Bruising Musculoskeletal: Denies: Neck Pain, Back Pain Neurological: Denies: Weakness, Numbness Objective Physical Examination General Exam: Positive: Alert, No Acute Distress Eye Exam: Positive: PERRLA, Conjunctiva & lids normal; Negative: Sclera icteric Chest Exam: Positive: Clear to auscultation, Normal air movement; Negative: Rales, Rhonchi, Wheezing Heart Exam: Positive: Rate Normal, Regular Rhythm Abdomen Exam: Positive: Normal bowel sounds, Soft; Negative: Tenderness Extremity Exam: Positive: Edema (right leg swelling seems to be reduced compared to yesterday), Normal pulses, Other (erythematous rash over right LE - slightly less erythematous currently. indurated, tender. especially poteromedial thigh on right) Skin Exam: Positive: Other skin issue (still indurated and tender, especially posteromedial thigh, calf. no new open areas. slightly less red than yesterday.) Neuro Exam: Positive: Normal Speech Psych Exam: Positive: Mental status NL Assessment /Plan Problems (1) Right leg swelling Status: Acute Problem Text: 08/12: some improvement in swelling. MRI still pending. Inflammatory markers are improved (decreased CRP and WBC) 08/11: patient reports culture was collected from right calf, from area of previous blister that had been open before the culture collected so likely represents skin sravani. Ordered MRI has not yet been performed. Right leg swelling started after a fall over 2 weeks ago. Erythema and blistering occurred afterward. He has had 2 doppler US studies 07/29 and 08/06 - both negative for DVT. Femur and knee x-rays 08/09 negative for fractures CTabd/pelvis 08/09 negative for intra-abdominal cause for obstruction of lymphatic drainage DP pulses 2+ right foot Etiology of swelling uncertain - Get MRI to loose more closely for soft tissue injury Continue leg elevation Consider adding JERAMIE compression Was on Vacno until 08/08 - d/c'd when MRSA screen came back negative Zosyn D#4 Consult ID for further recommendations for abx Wound Culture on admission: STAPHYLOCOCCUS SP COAG NEG QUANTITY OF GROWTH HEAVY FULL REPORT IN LAB NOTES (eCW and Medent). 1. STAPHYLOCOCCUS SP COAG NEG RX Route Dose M.I.C. ----- ----- --------- ICR (INDUCIBLE CC RESISTANCE) - TETRACYCLINE R PO 250 mg qid >=16 PENICILLIN G R PO 250mg q6h fasting >=0.5 R IV 1 mu q6h TRIMETHOPRIM/SULFAMETHOXAZOLE S PO Bactrim DS Bid <=10 S IV 160mg TMP & 800mg SMXq6h ERYTHROMYCIN R PO 500mg q6h >=8 R IV 500mg q6h GENTAMICIN I IV 80mg q8h 8 CLINDAMYCIN S PO 150mg q6h 0.5 S IV 600mg q6h OXACILLIN S IV 500mg q6h <=0.25 VANCOMYCIN S IV 500mg q8h <=0.5 LINEZOLID (ZYVOX) S PO 600MG Q12HR 1 S IV 600MG Q12HR DAPTOMYCIN S 0.25 (2) Cellulitis of right lower extremity Status: Acute Problem Specific Plan: Consult Specialist Problem Text: 08/12: improved CRP and lower WBC today. 08/11 see comments above re culture. now back on Vanco at rec of Dr. Moran (but may not provide optimal suppression of MSSA if present.) Suspect that his neuropathy allowed the infection to become significantly worse before he recognized the threat. cultures grew coag neg staph - likely skin contaminate B/C negative MRSA screen negative - See above - consultiung ID Cont Wound care and topical Sulfasilvadene (3) Diabetes Status: Chronic Problem Text: 08/12 due to slightly lower evening glucose he received only 30 units of levemir last night and as a result, his am glucose is high. Poorly controlled as outpatient but blood sugars running only 90s - 140s here on much less insulin than at home compliance with diet and insulin as outpatient is questionable (4) Nicotine addiction Status: Chronic Response to Treatment: Stable Plan/VTE VTE Prophylaxis Ordered?: Yes (Lovenox) Plan Therapy: PT VS, I&O, 24H, Fishbone Vital Signs/I&O Vital Signs Date Time Temp Pulse Resp B/P (MAP) Pulse Ox O2 Delivery O2 Flow Rate FiO2 08/12/19 10:01 18 08/12/19 06:00 98.0 81 160/70 (100) 96 08/11/19 23:21 Room Air I&O- Last 24 Hours up to 6 AM 08/12/19 06:00 Intake Total 1725 ml Output Total 2050 ml Balance -325 ml Laboratory Data 24H LABS Laboratory Tests 2 08/11/19 11:55: Bedside Glucose (Misc Panel) 223H 08/11/19 16:58: Bedside Glucose (Misc Panel) 140H 08/11/19 20:48: Bedside Glucose (Misc Panel) 193H 08/12/19 01:18: Vancomycin Level Trough 15.3 08/12/19 05:41: Nucleated Red Blood Cells % (auto) 0.0, Anion Gap 3L, Glomerular Filtration Rate > 60.0, Calcium Level 8.0L, C-Reactive Protein, Quantitative 7.92H CBC/BMP Laboratory Tests 08/12/19 05:41 Microbiology Microbiology 08/06/19 Gram Stain - Final, Complete 08/06/19 Wound Culture - Final, Complete Staphylococcus Sp Coag Neg 08/06/19 Blood Culture - Final, Complete NO GROWTH AFTER 5 DAYS 08/06/19 Blood Culture - Final, Complete NO GROWTH AFTER 5 DAYS 08/06/19 Blood Culture - Final, Complete NO GROWTH AFTER 5 DAYS Ruperto Mendoza MD Aug 12, 2019 11:15
[2019-08-12 14:00] VITALS: BP 152/65
[2019-08-12] MEDS: FENOFIBRATE 145 MG TAB (TRICOR) PO SCH (21:50)
[2019-08-12] MEDS: LEVEMIR (INSULIN DETEMIR) 1 UNITS/0.01ML SC SCH (21:50)
[2019-08-12] MEDS: ATORVASTATIN 20 MG TAB PO SCH (21:50)
[2019-08-12 22:00] VITALS: BP 147/65
[2019-08-13] MEDS: VANCOMYCIN HCL 750 MG, VIAL MATE ADAPTER 1 EACH in D5W 250 ML IV SCH ×3 (02:55→21:45)
[2019-08-13] MEDS: PERCOCET 5MG/325MG TAB PO PRN ×3 (02:55→21:51)
[2019-08-13] MEDS: PIPERACILLIN/TAZOBACTAM SOD 3.375 GM in D5W MINI-BAG PLUS 50 ML IV SCH ×4 (04:54→23:03)
[2019-08-13 06:00] VITALS: BP 143/74
[2019-08-13 06:03] LABS: HEMATOCRIT 27.1 % (42.0-52.0); HEMOGLOBIN 8.5 g/dl (13.5-17.5); MEAN CORPUSCULAR HEMOGLOBIN 28.3 pg (27.0-33.0); MEAN CORPUSCULAR HGB CONC 31.4 g/dl (32.0-36.5); MEAN CORPUSCULAR VOLUME 90.3 fl (80.0-96.0); PLATELET COUNT, AUTOMATED 293 10^3/uL (150-450); WHITE BLOOD COUNT 8.7 10^3/uL (4.0-10.0)
[2019-08-13 06:25] LABS: BLOOD UREA NITROGEN 17 MG/DL (7-18); C REACTIVE PROTEIN QUANTITATIV 8.39 MG/DL (0.00-0.30); CALCIUM LEVEL 8.2 MG/DL (8.5-10.1); CARBON DIOXIDE LEVEL 31 MEQ/L (21-32); CHLORIDE LEVEL 99 MEQ/L (98-107); CREATININE FOR GFR 1.01 MG/DL (0.70-1.30); GLOMERULAR FILTRATION RATE > 60.0 (>56); GLUCOSE, FASTING 299 MG/DL (70-100); POTASSIUM SERUM 3.7 MEQ/L (3.5-5.1); SODIUM LEVEL 134 MEQ/L (136-145)
--- NOTE | 2019-08-13 09:09 | IPNPDOC ---
Subjective Date Seen The patient was seen on 08/13/19. Subjective Chief Complaint/HPI Pt this morning reports that his leg remains sore and swollen, difficulty ambulating as a result. He states he otherwise feels just fine. General: Denies: Fatigue Constitutional: Denies: Chills, Fever Pulmonary: Denies: Dyspnea, Cough Cardiovascular: Denies: Chest Pain, Palpitations Gastrointestinal: Denies: Nausea, Vomiting Neurological: Denies: Weakness Psych: Reports: Mood Normal Objective Physical Examination General Exam: Positive: Alert, No Acute Distress Eye Exam: Positive: Sclera icteric Chest Exam: Positive: Clear to auscultation, Normal air movement; Negative: Rales, Rhonchi, Wheezing Heart Exam: Positive: Rate Normal, Regular Rhythm Abdomen Exam: Positive: Normal bowel sounds, Soft; Negative: Tenderness Extremity Exam: Positive: Edema (RLE swelling, tender to touch, mild warmth + erythema, extends from upper leg to lower leg, postmed thigh appears to be site of origination), Normal pulses, Other Skin Exam: Positive: Other skin issue (still indurated and tender, especially posteromedial thigh, calf. no new open areas. slightly less red than yesterday.) Neuro Exam: Positive: Normal Speech Psych Exam: Positive: Mental status NL Assessment /Plan Problems (1) Right leg swelling Status: Acute Problem Text: 08/13 Appears the MRI was cancelled, reordered today c BLE arterial doppler. WBC normalized, CRP has risen slightly from 7.92 to 8.39. Cont with Zosyn/Vanco 08/12: some improvement in swelling. MRI still pending. Inflammatory markers are improved (decreased CRP and WBC) 08/11: patient reports culture was collected from right calf, from area of previous blister that had been open before the culture collected so likely represents skin sravani. Ordered MRI has not yet been performed. Right leg swelling started after a fall over 2 weeks ago. Erythema and blistering occurred afterward. He has had 2 doppler US studies 07/29 and 08/06 - both negative for DVT. Femur and knee x-rays 08/09 negative for fractures CTabd/pelvis 08/09 negative for intra-abdominal cause for obstruction of lymphatic drainage DP pulses 2+ right foot Etiology of swelling uncertain - Get MRI to loose more closely for soft tissue injury Continue leg elevation Consider adding JERAMIE compression Was on Vacno until 08/08 - d/c'd when MRSA screen came back negative Zosyn D#4 Consult ID for further recommendations for abx Wound Culture on admission: STAPHYLOCOCCUS SP COAG NEG QUANTITY OF GROWTH HEAVY FULL REPORT IN LAB NOTES (eCW and Medent). 1. STAPHYLOCOCCUS SP COAG NEG RX Route Dose M .I.C. ----- ----- --------- ICR (INDUCIBLE CC RESISTANCE) - TETRACYCLINE R PO 250 mg qid >=16 PENICILLIN G R PO 250mg q6h fasting >=0.5 R IV 1 mu q6h TRIMETHOPRIM/SULFAMETHOXAZOLE S PO Bactrim DS Bid <=10 S IV 160mg TMP & 800mg SMXq6h ERYTHROMYCIN R PO 500mg q6h >=8 R IV 500mg q6h GENTAMICIN I IV 80mg q8h 8 CLINDAMYCIN S PO 150mg q6h 0.5 S IV 600mg q6h OXACILLIN S IV 500mg q6h <=0.25 VANCOMYCIN S IV 500mg q8h <=0.5 LINEZOLID (ZYVOX) S PO 600MG Q12HR 1 S IV 600MG Q12HR DAPTOMYCIN S 0.25 (2) Cellulitis of right lower extremity Status: Acute Problem Specific Plan: Consult Specialist Problem Text: D8 vanco, pip/[place] 08/11 see comments above re culture. now back on Vanco at rec of Dr. Moran (but may not provide optimal suppression of MSSA if present.) Suspect that his neuropathy allowed the infection to become significantly worse before he recognized the threat. cultures grew coag neg staph - likely skin contaminate B/C negative MRSA screen negative - (3) Diabetes Status: Chronic Problem Text: HD glar U-300 120 QHS, empag 25, glybur 5 BID 08/13 AC TID low 200s on det 40 QHS; therefore, increased to 55 (4) Nicotine addiction Status: Chronic Response to Treatment: Stable (5) Anemia Status: Acute Response to Treatment: Progressing Discussed With: Patient Problem Specific Plan: Monitor Clinically, Repeat Labs Problem Text: favor ACD +/- acute loss; therefore, HO all stools-stop Lovenox if + 08/13 hgb 8.5 (08/06/19 12.1; 10/2018 16.4!) 08/06/19 Fe 47, TIBC 178, %sat 26.4, Ferritin 1451 (likely elevated d/t infection) anemia due chronic disease, will add OB, B12, Folate. (6) PVD (peripheral vascular disease) Status: Chronic Problem Text: 12/07/2016 PREPROCEDURE DIAGNOSIS: Nonhealing right first toe ulcer, right foot deformity. POSTPROCEDURE DIAGNOSIS: Nonhealing right first toe ulcer, right foot deformity. PROCEDURE: Aortogram, iliofemoral angiogram, selective right common femoral artery catheter placement with right lower extremity angiogram, Mynx closure of the left common femoral arteriotomy. SURGEON: Dr. Leonel Cain. Plan/VTE VTE Prophylaxis Ordered?: Yes (Lovenox) Plan Therapy: PT VS, I&O, 24H, Fishbone Vital Signs/I&O Vital Signs Date Time Temp Pulse Resp B/P (MAP) Pulse Ox O2 Delivery O2 Flow Rate FiO2 08/13/19 06:00 97.4 86 18 143/74 (97) 98 08/13/19 03:25 Room Air I&O- Last 24 Hours up to 6 AM 08/13/19 06:01 Intake Total 2040 ml Output Total 1800 ml Balance 240 ml Laboratory Data 24H LABS Laboratory Tests 2 08/12/19 11:39: Bedside Glucose (Misc Panel) 235H 08/12/19 16:46: Bedside Glucose (Misc Panel) 184H 08/12/19 20:59: Bedside Glucose (Misc Panel) 239H 08/13/19 05:43: Nucleated Red Blood Cells % (auto) 0.0, Anion Gap 4L, Glomerular Filtration Rate > 60.0, Calcium Level 8.2L, C-Reactive Protein, Quantitative 8.39H CBC/BMP Laboratory Tests 08/13/19 05:43 Microbiology Microbiology 08/06/19 Gram Stain - Final, Complete 08/06/19 Wound Culture - Final, Complete Staphylococcus Sp Coag Neg 08/06/19 Blood Culture - Final, Complete NO GROWTH AFTER 5 DAYS 08/06/19 Blood Culture - Final, Complete NO GROWTH AFTER 5 DAYS 08/06/19 Blood Culture - Final, Complete NO GROWTH AFTER 5 DAYS RUBÉN MONTEIRO PA-C Aug 13, 2019 09:10 Leonard Quiroz M.D. Aug 13, 2019 16:40
[2019-08-13] MEDS: ENOXAPARIN 40 MG/0.4 ML SYRINGE (J1650) SC SCH (10:02)
[2019-08-13] MEDS: PARoxetine 20 MG TAB PO SCH (10:03)
[2019-08-13] MEDS: SILVER SULFADIAZINE 1% CR 50 GM JAR TOP SCH (10:03)
[2019-08-13] MEDS: ASPIRIN 81 MG ENTERIC TAB PO SCH (10:03)
[2019-08-13] MEDS: OMEPRAZOLE 20 MG CAP PO SCH (10:03)
[2019-08-13] MEDS: lisinopriL 40 MG TAB PO SCH (10:03)
[2019-08-13] MEDS: HumaLOG INSULIN (NovoLOG) PER UNIT SC SCH ×4 (10:04→21:00)
[2019-08-13 14:00] VITALS: BP 164/86
[2019-08-13] MEDS ORDERED: diazePAM 5 MG TAB PO ONE (17:45)
[2019-08-13] MEDS ORDERED: PROHANCE 279.3MG/ML 5ML VIAL (A9576) As Ordered ONE (20:46)
[2019-08-13] MEDS ORDERED: PROHANCE 279.3MG/ML 15ML VIAL (A9576) As Ordered ONE (20:46)
[2019-08-13] MEDS: ATORVASTATIN 20 MG TAB PO SCH (21:45)
[2019-08-13] MEDS: FENOFIBRATE 145 MG TAB (TRICOR) PO SCH (21:45)
[2019-08-13] MEDS: LEVEMIR (INSULIN DETEMIR) 1 UNITS/0.01ML SC SCH (21:46)
[2019-08-13 22:00] VITALS: BP 159/86
--- NOTE | 2019-08-13 22:32 | REPVR ---
PROCEDURE INFORMATION: Exam: MR Right Lower Extremity Without and With Contrast, Femur. Exam date and time: 08/13/2019 9:13 PM Age: 59 years old Clinical indication: Cellulitis; Thigh; Right; Additional info: Infection, swelling - R thigh with and without contrast TECHNIQUE: Imaging protocol: MR of the Right lower extremity without and with contrast. Exam focused on the femur. Contrast material: PROHANCE; Contrast volume: 20 ml; Contrast route: IV; COMPARISON: CR Femur 08/09/2019 8:59 AM FINDINGS: The examination is somewhat limited by motion degradation. There is diffuse soft tissue swelling and subcutaneous edema with associated enhancement and overlying skin thickening, compatible with cellulitis/myositis. Intramuscular edema is diffuse, involving portions of the adductor, quadriceps and hamstring muscle bellies, as well as the inferolateral aspect of the gluteus caro muscle belly. There is mild infiltration of the deep intramuscular fat planes. There is abscess formation along the lateral superficial aspect of the hamstring musculature at the level of the mid thigh, measuring up to approximately 6.5 x 1.8 cm. There is no soft tissue mass. No acute tendon or ligament injury is identified. There are mildly prominent right inguinal lymph nodes, which are likely reactive. There is no MR evidence of acute fracture or dislocation. Alignment is anatomic. Bone marrow signal is normal. There are no erosive or destructive changes. No lytic or blastic lesion is seen. There is a small suprapatellar effusion. IMPRESSION: 1. Cellulitis, myositis and fasciitis with abscess formation along the lateral superficial aspect of the hamstring musculature, as described above. No MR evidence of acute osteomyelitis. 2. Additional findings, as above. Electronically signed by: Manuel Nicholson On 08/13/2019 22:31:50 PM
[2019-08-14] MEDS: VANCOMYCIN HCL 750 MG, VIAL MATE ADAPTER 1 EACH in D5W 250 ML IV SCH (04:29)
[2019-08-14] MEDS: PERCOCET 5MG/325MG TAB PO PRN ×4 (04:29→22:08)
[2019-08-14] MEDS: PIPERACILLIN/TAZOBACTAM SOD 3.375 GM in D5W MINI-BAG PLUS 50 ML IV SCH ×4 (05:59→22:05)
[2019-08-14 06:00] VITALS: BP 147/83
[2019-08-14 06:49] LABS: BASO % 0.5 % (0.0-1.0); EOS # 0.1 10^3/uL (0.0-0.5); EOS % 1.2 % (0.0-3.0); HEMOGLOBIN 8.6 g/dl (13.5-17.5); LYMPH # 1.2 10^3/uL (1.5-5.0); LYMPH % 15.2 % (24.0-44.0); MEAN CORPUSCULAR HEMOGLOBIN 28.3 pg (27.0-33.0); MEAN CORPUSCULAR HGB CONC 31.9 g/dl (32.0-36.5); MEAN CORPUSCULAR VOLUME 88.8 fl (80.0-96.0); MONO # 0.6 10^3/uL (0.0-0.8); MONO % 7.3 % (0.0-5.0); NEUTROPHILS # 5.7 10^3/uL (1.5-8.5); PLATELET COUNT, AUTOMATED 332 10^3/uL (150-450); RED BLOOD COUNT 3.04 10^6/uL (4.30-6.10); WHITE BLOOD COUNT 7.6 10^3/uL (4.0-10.0)
[2019-08-14 07:10] LABS: C REACTIVE PROTEIN QUANTITATIV 7.19 MG/DL (0.00-0.30); ERYTHROCYTE SEDIMENTATION RATE 128 mm/hr (0-20)
[2019-08-14] MEDS: HumaLOG INSULIN (NovoLOG) PER UNIT SC SCH ×4 (07:30→21:00)
[2019-08-14 08:00] VITALS: BP 140/96
[2019-08-14] MEDS: PARoxetine 20 MG TAB PO SCH (09:55)
[2019-08-14] MEDS: lisinopriL 40 MG TAB PO SCH (09:55)
[2019-08-14] MEDS: OMEPRAZOLE 20 MG CAP PO SCH (09:55)
[2019-08-14] MEDS: ENOXAPARIN 40 MG/0.4 ML SYRINGE (J1650) SC SCH (09:56)
[2019-08-14] MEDS: ASPIRIN 81 MG ENTERIC TAB PO SCH (09:56)
[2019-08-14] MEDS: SILVER SULFADIAZINE 1% CR 50 GM JAR TOP SCH (09:57)
--- NOTE | 2019-08-14 11:01 | IPNPDOC ---
Subjective Date Seen The patient was seen on 08/14/19. Subjective Chief Complaint/HPI Pt this morning states that he feels about the same. He states he thinks his leg remains unchanged, he did finally agree to have the MRI last night. General: Denies: Fatigue Constitutional: Denies: Chills, Fever Pulmonary: Denies: Dyspnea, Cough Cardiovascular: Denies: Chest Pain, Palpitations Gastrointestinal: Denies: Nausea, Vomiting Neurological: Denies: Weakness Psych: Reports: Mood Normal Objective Physical Examination General Exam: Positive: Alert, No Acute Distress ENT Exam: Positive: Mucous membr. moist/pink Chest Exam: Positive: Clear to auscultation, Normal air movement; Negative: Rales, Rhonchi, Wheezing Heart Exam: Positive: Rate Normal, Regular Rhythm Abdomen Exam: Positive: Normal bowel sounds, Soft; Negative: Tenderness Extremity Exam: Positive: Edema (RLE swelling, tender to touch, mild warmth + erythema, extends from upper leg to lower leg, postmed thigh appears to be site of origination), Normal pulses, Other Skin Exam: Positive: Other skin issue (still indurated and tender, especially posteromedial thigh, calf. no new open areas. slightly less red than yesterday.) Neuro Exam: Positive: Normal Speech Psych Exam: Positive: Mental status NL Assessment /Plan Problems (1) Right leg swelling Status: Acute Problem Text: 08/14 MRI obtained consistent with abscess. Ortho consulted, Dr Cr is on today, I spoke with his nurse. CRP down slightly today at 7.19. He remains on Zosyn/Vanco 08/13 Appears the MRI was cancelled, reordered today c BLE arterial doppler. WBC normalized, CRP has risen slightly from 7.92 to 8.39. Cont with Zosyn/Vanco 08/12: some improvement in swelling. MRI still pending. Inflammatory markers are improved (decreased CRP and WBC) 08/11: patient reports culture was collected from right calf, from area of previous blister that had been open before the culture collected so likely represents skin sravani. Ordered MRI has not yet been performed. Right leg swelling started after a fall over 2 weeks ago. Erythema and blistering occurred afterward. He has had 2 doppler US studies 07/29 and 08/06 - both negative for DVT. Femur and knee x-rays 08/09 negative for fractures CTabd/pelvis 08/09 negative for intra-abdominal cause for obstruction of lymphatic drainage DP pulses 2+ right foot Etiology of swelling uncertain - Get MRI to loose more closely for soft tissue injury Continue leg elevation Consider adding JERAMIE compression Was on Vacno until 08/08 - d/c'd when MRSA screen came back negative Dyan Rangel#4 Consult ID for further recommendations for abx Wound Culture on admission: STAPHYLOCOCCUS SP COAG NEG QUANTITY OF GROWTH HEAVY FULL REPORT IN LAB NOTES (eCW and Medent). 1. STAPHYLOCOCCUS SP COAG NEG RX Route Dose M.I.C. ----- ----- --------- ICR (INDUCIBLE CC RESISTANCE) - TETRACYCLINE R PO 250 mg qid >=16 PENICILLIN G R PO 250mg q6h fasting >=0.5 R IV 1 mu q6h TRIMETHOPRIM/SULFAMETHOXAZOLE S PO Bactrim DS Bid <=10 S IV 160mg TMP & 800mg SMXq6h ERYTHROMYCIN R PO 500mg q6h >=8 R IV 500mg q6h GENTAMICIN I IV 80mg q8h 8 CLINDAMYCIN S PO 150mg q6h 0.5 S IV 600mg q6h OXACILLIN S IV 500mg q6h <=0.25 VANCOMYCIN S IV 500mg q8h <=0.5 LINEZOLID (ZYVOX) S PO 600MG Q12HR 1 S IV 600MG Q12HR DAPTOMYCIN S 0.25 (2) Cellulitis of right lower extremity Status: Acute Problem Specific Plan: Consult Specialist Problem Text: D9 vanco, pip/victoria 08/11 see comments above re culture. now back on Vanco at rec of Dr. Moran (but may not provide optimal suppression of MSSA if present.) Suspect that his neuropathy allowed the infection to become significantly worse before he recognized the threat. cultures grew coag neg staph - likely skin contaminate B/C negative MRSA screen negative - (3) Diabetes Status: Chronic Problem Text: HD glar U-300 120 QHS, empag 25, glybur 5 BID 08/13 AC TID low 200s on det 40 QHS; therefore, increased to 55 (4) Nicotine addiction Status: Chronic Response to Treatment: Stable (5) Anemia Status: Acute Response to Treatment: Progressing Discussed With: Patient Problem Specific Plan: Monitor Clinically, Repeat Labs Problem Text: favor ACD +/- acute loss + FA def (08/14 FA 3; therefore + 1 mg po QD); therefore, HO all stools-stop Lovenox if + 08/13 hgb 8.5 (08/06/19 12.1; 10/2018 16.4!) 08/06/19 Fe 47, TIBC 178, %sat 26.4, Ferritin 1451 (likely elevated d/t infection) anemia due chronic disease, will add OB, B12, Folate. (6) PVD (peripheral vascular disease) Status: Chronic Problem Text: 12/07/2016 PREPROCEDURE DIAGNOSIS: Nonhealing right first toe ulcer, right foot deformity. POSTPROCEDURE DIAGNOSIS: Nonhealing right first toe ulcer, right foot deformity. PROCEDURE: Aortogram, iliofemoral angiogram, selective right common femoral artery catheter placement with right lower extremity angiogram, Mynx closure of the left common femoral arteriotomy. SURGEON: Dr. Leonel Cain. Plan/VTE VTE Prophylaxis Ordered?: Yes (Lovenox) Plan Therapy: PT VS, I&O, 24H, Fishbone Vital Signs/I&O Vital Signs Date Time Temp Pulse Resp B/P (MAP) Pulse Ox O2 Delivery O2 Flow Rate FiO2 08/14/19 08:00 97.3 72 14 140/96 (111) 99 Room Air l I&O- Last 24 Hours up to 6 AM 08/14/19 05:59 Intake Total 780 ml Output Total 3075 ml Balance -2295 ml Laboratory Data 24H LABS Laboratory Tests 2 08/13/19 11:28: Bedside Glucose (Misc Panel) 245H 08/13/19 16:43: Bedside Glucose (Misc Panel) 174H 08/13/19 21:26: Bedside Glucose (Misc Panel) 175H 08/14/19 06:07: Bedside Glucose (Misc Panel) 184H 08/14/19 06:20: Immature Granulocyte % (Auto) 0.8, Neutrophils (%) (Auto) 75.0H, Lymphocytes (%) (Auto) 15.2L, Monocytes (%) (Auto) 7.3H, Eosinophils (%) (Auto) 1.2, Basophils (%) (Auto) 0.5, Neutrophils # (Auto) 5.7, Lymphocytes # (Auto) 1.2L, Monocytes # (Auto) 0.6, Eosinophils # (Auto) 0.1, Basophils # (Auto) 0.0, Reticulocyte # (auto) 78.1H, Nucleated Red Blood Cells % (auto) 0.0, Erythrocyte Sedimentation Rate 128H, Percent Reticulocyte Count 2.6H, Reticulocyte Hemoglobin Equivalent 30.8, C-Reactive Protein, Quantitative 7.19H, Vitamin B12 Level 1331H, Folate 3.0L CBC/BMP Laboratory Tests 08/14/19 06:20 Microbiology Microbiology 08/06/19 Gram Stain - Final, Complete 08/06/19 Wound Culture - Final, Complete Staphylococcus Sp Coag Neg 08/06/19 Blood Culture - Final, Complete NO GROWTH AFTER 5 DAYS 08/06/19 Blood Culture - Final, Complete NO GROWTH AFTER 5 DAYS 08/06/19 Blood Culture - Final, Complete NO GROWTH AFTER 5 DAYS RUBÉN MONTEIRO PA-C Aug 14, 2019 11:01 Leonard Quiroz M.D. Aug 14, 2019 17:29
--- NOTE | 2019-08-14 11:55 | PHACANCOPD ---
PHARMACY VANCOMYCIN DOSING Pt Demographics Demographics Patient Age:59 , Weight:108.000 , Gender: male Adjusted Body Weight Date: 08/06/19, Adjusted Body Weight: [91] Kg Vancomycin Vancomycin indication: SSTI Vancomycin Target Ranges: 10-20 mcg/ml Vancomycin Load Y/N: Yes Load Dose Date Time Date: 08/09/19. Current Vancomycin Dose: [750MG Q8H] Vancomycin Load Dose: 2000MG Date: 08/06/19 Time: 1700 Vancomycin Dose Date: 08/06/19. Current Vancomycin Dose: [ 1500mg q12h ] Intermittent Dosing?: No Labs Micro Microbiology 08/06/19 Gram Stain - Final, Complete 08/06/19 Wound Culture - Final, Complete Staphylococcus Sp Coag Neg 08/06/19 Blood Culture - Final, Complete NO GROWTH AFTER 5 DAYS 08/06/19 Blood Culture - Final, Complete NO GROWTH AFTER 5 DAYS 08/06/19 Blood Culture - Final, Complete NO GROWTH AFTER 5 DAYS Creatinine Clearance Date:08/09/19. Creatinine Clearance: [>100]. Date:08/06/19. Creatinine Clearance: [ 63.6 mL/min ]. Assessment and Plan Maintaining Current Dose?: No Reason for dose change: Trough too high Pharmacist Note Pharmacist Note Date: 08/14/19. Pharmacist note: Vancomycin trough drawn @1054 reported as 20.1. Will change dose to 1 gm IV q12h, pharmacy will continue to monitor and make ad justments as needed. Date: 08/12/19. Pharmacist note:Vancomycin trough drawn tonight@1:18 reported as 15.3(goal=15-20).SCR slightly increased 08/11@1.16(CRCL=78.5 calculated)Will continue w/current Vancomycin regimen of 750mg IV Q8H.also continuing is Pip/Ta zo 3.375 gm q6h.-will continue to follow Date: 08/09/19. Pharmacist note:Vancomycin trough drawn this am@3:55 reported as 21.7. SCR improved ,1.0 this a.m.,Calculated CRCL>100.Vancomycin dose will be adjusted to 750mg IV [id number] to begin @0900-as i believe patient may be accumulating a bit and also trough goal= 10-20). Next trough is scheduled for tomorrow@1600. Patient remains on Pip/Tazo 3.375gm q6h- will continue to follow Date: 08/06/19. Pharmacist note: Patient ROSITA is a 59 year old male who presented to the emergency department at [facility] after failing outpatient therapy of clindamycin to treat a right lower extremity cellulitis. He presents now with purulent cellulitis. He was started on broad-spectrum antibiotic therapy consisting of Zosyn 3.375 grams every six hours and vancomycin for methicillin-resistant S. aureus coverage. He has previously received vancomycin at [facility], but for this admission he presents with improved renal function. A loading dose of 2 grams was scheduled for this evening, with a maintenance dose of 1.5 grams every 12 hours starting tomorrow morning. His goal vancomycin trough is 10-20 mcg/dL. We will continue to monitor and make adjustments as needed. AIDAN [facility] Aug 14, 2019 11:55
[2019-08-14] MEDS: VANCOMYCIN HCL 1,000 MG, VIAL MATE ADAPTER 1 EACH in D5W 250 ML IV SCH (12:13)
--- NOTE | 2019-08-14 13:38 | IPN ---
DATE OF SERVICE: 08/13/2019 Sheldon still complains of severe pain in his leg with significant swelling. His MRI was not obtained over the weekend, as he stated he refused it on Tuesday because he is very claustrophobic, and he wanted something to make him relax. He denies any nausea, vomiting, diarrhea, fever, or chills. His last fever was 08/07/2019. He has been afebrile since then. Temperature is 98.6, pulse 77, respirations 18, blood pressure 164/86, oxygen (O2) saturation 98% on room air. Heart: Normal S1, S2. No murmurs. Lungs: Clear. No wheezes, rales, or rhonchi. Abdomen: Soft, nontender. Extremities: Right thigh, severe redness on the posterior side with induration extending at least 20 cm. There is an abrasion on the calf but no purulent discharge. LABORATORIES: White count is 8.7, hemoglobin 8.5, hematocrit 27.1, platelets 293. Sodium 134, potassium 3.7, chloride 99, bicarbonate 31, BUN 17, creatinine 1.01, glucose 299, calcium 8.2, CRP 8.39 down from 24.8. Wound culture only had a Staphylococcus coag negative on 08/06/2019. MEDICATIONS: - intravenous (IV) vancomycin 750 mg every 8 hours - Zosyn 3.375 grams IV every 6 hours IMPRESSION: 1. Right leg cellulitis with abscess in the right midthigh. 2. Insulin-dependent diabetes. Glucose ranging between 175 and 250, better controlled. PLAN: Continue IV vancomycin and Zosyn. Please obtain at once (STAT) MRI tonight. We have been waiting for this MRI for 4 days; and if there is an abscess, the patient needs an incision and drainage. The patient needs premedication with benzodiazepine. MTDD
[2019-08-14 14:00] VITALS: BP 138/92
[2019-08-14] MEDS ORDERED: LIDOCAINE 1% MDV 20ML VIAL As Ordered ONE (15:42)
--- NOTE | 2019-08-14 18:00 | IPNPDOC ---
Text Note Date of Service The patient was seen on 08/14/19. NOTE SUBJECTIVE: Patient was interviewed and examined in his hospital room today following I&D of his right lower leg abscess. He reports significant improvement in his lower extremity pain s/p abscess drainage. Denies any nausea, vomiting, diarrhea, fever or chills. Patient has remained afebrile since 08/07/2019. OBJECTIVE: Vitals: Temp, 98.0. Pulse, 86. RR, 16. BP, 138/92. SpO2, 97% RA. Gen: Pt interviewed and examined in his hospital room. Patient recently returned from R posterior thigh abscess I&D. Alert and oriented, in no acute distress. Heart: Regular rate and rhythm. Normal S1 and S2, no murmurs auscultated. Lung: Clear to auscultation bilaterally, no wheezing rales or rhonchi. Extremity: 2+ pitting edema to the inguinal ligament on the right lower extremity. Erythematous and tight over the the right lower extremity, p articularly the lower leg. Drain in R posterior-lateral thigh in place, appropriately placed. Notable ruptured blisters on posterior thigh, posterior lateral calf and anterior lateral calf. Psych: Mood and affect are appropriate given patient's current medical condition. ASSESSMENT: 59 year old male, past medical history significant for insulin-dependent diabetes mellitus type 2 and hypertension with R LE cellulitis and swelling, who failed outpatient Abx therapy, admitted to the hospital for IV abx therapy. MRI performed 08/14/19 indicates cellulitis, myositis fasciitis and abscess formation. S/P I&D today. PLAN: #Right leg cellulitis with abscess MRI significantly for cellulitis, myositis and fasciitis with abscess formation on the lateral superficial aspect of the hamstring musculature. Ultrasound- guided drainage tube inserted today. Pt reported immediate improvement of symptoms. Cultures pending. Continue IV Vanco 750 Q8H and Zosyn 3.375 Q6H De-escalation pending culture results. VS,Fishbone, I+O VS, Fishbone, I+O Laboratory Tests 08/14/19 06:20 Vital Signs Date Time Temp Pulse Resp B/P (MAP) Pulse Ox O2 Delivery O2 Flow Rate FiO2 08/14/19 17:01 18 Room Air 08/14/19 16:38 98.0 86 97 1/28/20 14:00 138/92 (107) I&O- Last 24 Hours up to 6 AM 08/14/19 05:59 Intake Total 780 ml Output Total 3075 ml Balance -2295 ml KATHARINE ALMANZA DO Aug 14, 2019 17:35
[2019-08-14 22:00] VITALS: BP 155/63
[2019-08-14] MEDS: FENOFIBRATE 145 MG TAB (TRICOR) PO SCH (22:04)
[2019-08-14] MEDS: ATORVASTATIN 20 MG TAB PO SCH (22:05)
[2019-08-14] MEDS: LEVEMIR (INSULIN DETEMIR) 1 UNITS/0.01ML SC SCH (22:06)
[2019-08-15] MEDS: VANCOMYCIN HCL 1,000 MG, VIAL MATE ADAPTER 1 EACH in D5W 250 ML IV SCH ×2 (00:24→12:18)
[2019-08-15] MEDS: PIPERACILLIN/TAZOBACTAM SOD 3.375 GM in D5W MINI-BAG PLUS 50 ML IV SCH ×4 (04:54→22:05)
[2019-08-15] MEDS: PERCOCET 5MG/325MG TAB PO PRN ×3 (05:02→20:27)
[2019-08-15 06:00] VITALS: BP 159/69
[2019-08-15 06:21] LABS: HEMATOCRIT 29.8 % (42.0-52.0); HEMOGLOBIN 9.4 g/dl (13.5-17.5); MEAN CORPUSCULAR HEMOGLOBIN 28.2 pg (27.0-33.0); MEAN CORPUSCULAR HGB CONC 31.5 g/dl (32.0-36.5); MEAN CORPUSCULAR VOLUME 89.5 fl (80.0-96.0); PLATELET COUNT, AUTOMATED 376 10^3/uL (150-450); RED BLOOD COUNT 3.33 10^6/uL (4.30-6.10); WHITE BLOOD COUNT 7.3 10^3/uL (4.0-10.0)
[2019-08-15 06:36] LABS: BLOOD UREA NITROGEN 15 MG/DL (7-18); C REACTIVE PROTEIN QUANTITATIV 7.18 MG/DL (0.00-0.30); CALCIUM LEVEL 8.2 MG/DL (8.5-10.1); CARBON DIOXIDE LEVEL 32 MEQ/L (21-32); CHLORIDE LEVEL 100 MEQ/L (98-107); CREATININE FOR GFR 1.09 MG/DL (0.70-1.30); GLOMERULAR FILTRATION RATE > 60.0 (>56); GLUCOSE, FASTING 228 MG/DL (70-100); POTASSIUM SERUM 3.4 MEQ/L (3.5-5.1); SODIUM LEVEL 137 MEQ/L (136-145)
[2019-08-15] MEDS: FOLIC ACID 1 MG TAB PO SCH (09:56)
[2019-08-15] MEDS: ENOXAPARIN 40 MG/0.4 ML SYRINGE (J1650) SC SCH (09:56)
[2019-08-15] MEDS: lisinopriL 40 MG TAB PO SCH (09:56)
[2019-08-15] MEDS: PARoxetine 20 MG TAB PO SCH (09:56)
[2019-08-15] MEDS: ASPIRIN 81 MG ENTERIC TAB PO SCH (09:56)
[2019-08-15] MEDS: HumaLOG INSULIN (NovoLOG) PER UNIT SC SCH ×4 (09:56→21:00)
[2019-08-15] MEDS: OMEPRAZOLE 20 MG CAP PO SCH (09:56)
[2019-08-15] MEDS: SILVER SULFADIAZINE 1% CR 50 GM JAR TOP SCH (09:57)
--- NOTE | 2019-08-15 11:03 | IPNPDOC ---
Subjective Date Seen The patient was seen on 08/15/19. Subjective Chief Complaint/HPI Leg pain improving - no new complaints Constitutional: Denies: Chills, Fever Pulmonary: Denies: Dyspnea, Cough Cardiovascular: Denies: Chest Pain, Palpitations, Orthopnea Gastrointestinal: Denies: Nausea, Vomiting, Abdominal Pain, Diarrhea, Constipation Objective Physical Examination General Exam: Positive: Alert, No Acute Distress ENT Exam: Positive: Mucous membr. moist/pink Chest Exam: Positive: Clear to auscultation, Normal air movement; Negative: Rales, Rhonchi, Wheezing Heart Exam: Positive: Rate Normal, Regular Rhythm Abdomen Exam: Positive: Normal bowel sounds, Soft; Negative: Tenderness Extremity Exam: Positive: Edema (Edema improving), Normal pulses Skin Exam: Positive: Other skin issue (ERythema resolved on right LE. Wounds on posterior thigh healing - drain in place) Neuro Exam: Positive: Normal Speech Psych Exam: Positive: Mental status NL Assessment /Plan Problems (1) Abscess of right lower leg Status: Acute Problem Text: s/p drainage - cultures pending Drain in place PICC to be placed in anticipation for home IV abx to b adjusted once cultures return - Cont Vanco and Zosyn for now - ID on consult (Of note: MRI leg ordered thursday 08/10 at 9:20 am) - not done until 08/13) (2) Right leg swelling Status: Acute Response to Treatment: Improving Problem Text: 08/14 MRI obtained consistent with abscess. Ortho consulted, Dr Cr is on today, I spoke with his nurse. CRP down slightly today at 7.19. He remains on Zosyn/Vanco 08/13 Appears the MRI was cancelled, reordered today c BLE arterial doppler. WBC normalized, CRP has risen slightly from 7.92 to 8.39. Cont with Zosyn/Vanco 08/12: some improvement in swelling. MRI still pending. Inflammatory markers are improved (decreased CRP and WBC) 08/11: patient reports culture was collected from right calf, from area of previous blister that had been open before the culture collected so likely represents skin sravani. Ordered MRI has not yet been performed. Right leg swelling started after a fall over 2 weeks ago. Erythema and blistering occurred afterward. He has had 2 doppler US studies 07/29 and 08/06 - both negative for DVT. Femur and knee x-rays 08/09 negative for fractures CTabd/pelvis 08/09 negative for intra-abdominal cause for obstruction of lymp hatic drainage DP pulses 2+ right foot Etiology of swelling uncertain - Get MRI to loose more closely for soft tissue injury Continue leg elevation Consider adding JERAMIE compression Was on Vacno until 08/08 - d/c'd when MRSA screen came back negative Zosyn D#4 Consult ID for further recommendations for abx Wound Culture on admission: STAPHYLOCOCCUS SP COAG NEG QUANTITY OF GROWTH HEAVY FULL REPORT IN LAB NOTES (eCW and Medent). 1. STAPHYLOCOCCUS SP COAG NEG RX Route Dose M.I.C. ----- ----- --------- ICR (INDUCIBLE CC RESISTANCE) - TETRACYCLINE R PO 250 mg qid >=16 PENICILLIN G R PO 250mg q6h fasting >=0.5 R IV 1 mu q6h TRIMETHOPRIM/SULFAMETHOXAZOLE S PO Bactrim DS Bid <=10 S IV 160mg TMP & 800mg SMXq6h ERYTHROMYCIN R PO 500mg q6h >=8 R IV 500mg q6h GENTAMICIN I IV 80mg q8h 8 CLINDAMYCIN S PO 150mg q6h 0.5 S IV 600mg q6h OXACILLIN S IV 500mg q6h <=0.25 VANCOMYCIN S IV 500mg q8h <=0.5 LINEZOLID (ZYVOX) S PO 600MG Q12HR 1 S IV 600MG Q12HR DAPTOMYCIN S 0.25 (3) Cellulitis of right lower extremity Status: Acute Problem Specific Plan: Consult Specialist Problem Text: D9 vanco, pip/victoria 08/11 see comments above re culture. now back on Vanco at rec of Dr. Moran (but may not provide optimal suppression of MSSA if present.) Suspect that his neuropathy allowed the infection to become significantly worse before he recognized the threat. cultures grew coag neg staph - likely skin contaminate B/C negative MRSA screen negative - (4) Diabetes Status: Chronic Problem Text: HD glar U-300 120 QHS, empag 25, glybur 5 BID 08/13 AC TID low 200s on det 40 QHS; therefore, increased to 55 (5) Nicotine addiction Status: Chronic Response to Treatment: Stable (6) Anemia Status: Acute Response to Treatment: Progressing Discussed With: Patient Problem Specific Plan: Monitor Clinically, Repeat Labs Problem Text: favor ACD +/- acute loss + FA def (08/14 FA 3; therefore + 1 mg po QD); therefore, HO all stools-stop Lovenox if + 08/13 hgb 8.5 (08/06/19 12.1; 10/2018 16.4!) 08/06/19 Fe 47, TIBC 178, %sat 26.4, Ferritin 1451 (likely elevated d/t infection) anemia due chronic disease, will add OB, B12, Folate. (7) PVD (peripheral vascular disease) Status: Chronic Problem Text: 12/07/2016 PREPROCEDURE DIAGNOSIS: Nonhealing right first toe ulcer, right foot deformity. POSTPROCEDURE DIAGNOSIS: Nonhealing right first toe ulcer, right foot deformity. PROCEDURE: Aortogram, iliofemoral angiogram, selective right common femoral artery catheter placement with right lower extremity angiogram, Mynx closure of the left common femoral arteriotomy. SURGEON: Dr. Leonel Cain. Plan/VTE VTE Prophylaxis Ordered?: Yes (Lovenox) Plan Therapy: PT VS, I&O, 24H, Fishbone Vital Signs/I&O Vital Signs Date Time Temp Pulse Resp B/P (MAP) Pulse Ox O2 Delivery O2 Flow Rate FiO2 08/15/19 09:57 18 08/15/19 06:00 97.1 80 159/69 (99) 96 Room Air 08/14/19 17:31 18.0 I&O- Last 24 Hours up to 6 AM 08/15/19 05:59 Intake Total 1180 ml Output Total 1400 ml Balance -220 ml Laboratory Data 24H LABS Laboratory Tests 2 08/14/19 10:54: Vancomycin Level Trough 20.1H 08/14/19 11:26: Bedside Glucose (Misc Panel) 170H 08/14/19 17:00: Bedside Glucose (Misc Panel) 167H 08/14/19 20:34: Bedside Glucose (Misc Panel) 196H 08/15/19 05:57: Nucleated Red Blood Cells % (auto) 0.0, Anion Gap 5L, Glomerular Filtration Rate > 60.0, Calcium Level 8.2L, C-Reactive Protein, Quantitative 7.18H 08/15/19 06:22: Bedside Glucose (Misc Panel) 222H CBC/BMP Laboratory Tests 08/15/19 05:57 Microbiology Microbiology 08/14/19 Gram Stain - Final, Resulted 08/14/19 Abscess Culture, Resulted Pending 08/14/19 Anaerobic Culture, Received Pending 08/06/19 Gram Stain - Final, Complete 08/06/19 Wound Culture - Final, Complete Staphylococcus Sp Coag Neg 08/06/19 Blood Culture - Final, Complete NO GROWTH AFTER 5 DAYS 08/06/19 Blood Culture - Final, Complete NO GROWTH AFTER 5 DAYS 08/06/19 Blood Culture - Final, Complete NO GROWTH AFTER 5 DAYS FRANCISCO JACKSON PA-C Aug 15, 2019 11:03
[2019-08-15 14:00] VITALS: BP 175/83
[2019-08-15 15:54] LABS: ERYTHROCYTE SEDIMENTATION RATE 126 mm/hr (0-20)
[2019-08-15] MEDS: ATORVASTATIN 20 MG TAB PO SCH (20:27)
[2019-08-15] MEDS: FENOFIBRATE 145 MG TAB (TRICOR) PO SCH (20:27)
[2019-08-15 22:00] VITALS: BP 150/69
[2019-08-15] MEDS: LEVEMIR (INSULIN DETEMIR) 1 UNITS/0.01ML SC SCH (22:05)
--- NOTE | 2019-08-15 22:31 | REP ---
Ultrasound-guided abscess drainage and catheter placement This procedure was performed by Brooke FRYE, under the direct supervision of Dr. Babcock. The risks and benefits of the procedure were explained to the patient and informed consent was obtained both verbally and written. Directly prior to the start of the procedure, a formal timeout was done in the procedure room. The right posterior lateral thigh abscess was localized using ultrasound guidance. The skin was prepped and draped in a sterile fashion. 2 ml of 1% lidocaine 10 mg/ml was used as a local anesthetic. Using ultrasound guidance a small skin james was made and using a trocar technique a 5-Kyr[place]z pigtail catheter was advanced into the abscess. 13 ml of peach colored pus was removed and sent to the lab further analysis. The pigtail was secured with a stitch, and a drainage bag was attached. The patient tolerated the procedure well and there were no immediate complications. After the appropriate monitored convalescence the patient was discharged home from the department. Reviewed by UDAY Blanton 08/14/2019 05:45 P Electronically Signed by Hoang Babcock MD 08/15/2019 10:23 P
[2019-08-16] MEDS: VANCOMYCIN HCL 1,000 MG, VIAL MATE ADAPTER 1 EACH in D5W 250 ML IV SCH ×3 (00:10→23:54)
[2019-08-16] MEDS: PIPERACILLIN/TAZOBACTAM SOD 3.375 GM in D5W MINI-BAG PLUS 50 ML IV SCH ×2 (04:29→09:59)
[2019-08-16 06:00] VITALS: BP 154/81
[2019-08-16 08:00] VITALS: BP 152/80
--- NOTE | 2019-08-16 09:44 | IPNPDOC ---
Subjective Date Seen The patient was seen on 08/16/19. Subjective Chief Complaint/HPI Pt this morning without new concerns. He states that he has less pain in his leg but cont to have difficulty with any weight bearing. General: Denies: Fatigue Constitutional: Denies: Chills, Fever ENT: Denies: Head Aches Pulmonary: Denies: Dyspnea, Cough Cardiovascular: Denies: Chest Pain, Palpitations Gastrointestinal: Denies: Nausea, Vomiting, Diarrhea Psych: Reports: Mood Normal Objective Physical Examination General Exam: Positive: Alert, No Acute Distress ENT Exam: Positive: Mucous membr. moist/pink Chest Exam: Positive: Clear to auscultation, Normal air movement; Negative: Rales, Rhonchi, Wheezing Heart Exam: Positive: Rate Normal, Regular Rhythm Abdomen Exam: Positive: Normal bowel sounds, Soft; Negative: Tenderness Extremity Exam: Positive: Edema (Edema improving), Normal pulses Skin Exam: Positive: Other skin issue (ERythema resolved on right LE. Wounds on posterior thigh healing - drain in place) Neuro Exam: Positive: Normal Speech Psych Exam: Positive: Mental status NL Assessment /Plan Problems (1) Abscess of right lower leg Status: Acute Problem Text: 08/16 concern for another abscess in R popliteal fossa-obtain STAT US, plan drainage in AM (Of note: MRI leg ordered thursday 08/10 at 9:20 am) - not done until 08/13) (2) Cellulitis of right lower extremity Status: Acute Problem Specific Plan: Consult Specialist Problem Text: D11 vanco 05/14 R posterior thigh WCX S. aureus, sens P (3) Diabetes Status: Chronic Problem Text: HD glar U-300 120 QHS, empag 25, glybur 5 BID 08/13 AC TID low 200s on det 40 QHS; therefore, increased to 55 (4) Nicotine addiction Status: Chronic Response to Treatment: Stable (5) Anemia Status: Acute Response to Treatment: Progressing Discussed With: Patient Problem Specific Plan: Monitor Clinically, Repeat Labs Problem Text: favor ACD +/- acute loss + FA def (08/14 FA 3; therefore + 1 mg po QD); therefore, HO all stools-stop Lovenox if + 08/13 hgb 8.5 (08/06/19 12.1; 10/2018 16.4!) 08/06/19 Fe 47, TIBC 178, %sat 26.4, Ferritin 1451 (likely elevated d/t infection) anemia due chronic disease, will add OB, B12, Folate. (6) PVD (peripheral vascular disease) Status: Chronic Problem Text: 12/07/2016 PREPROCEDURE DIAGNOSIS: Nonhealing right first toe ulcer, right foot deformity. POSTPROCEDURE DIAGNOSIS: Nonhealing right first toe ulcer, right foot deformity. PROCEDURE: Aortogram, iliofemoral angiogram, selective right common femoral artery catheter placement with right lower extremity angiogram, Mynx closure of the left common femoral arteriotomy. SURGEON: Dr. Leonel Cain. (7) Physical deconditioning Status: Chronic Problem Text: 08/14 PT safe to dc home Plan/VTE VTE Prophylaxis Ordered?: Yes (Lovenox) Plan Therapy: PT VS, I&O, 24H, Fishbone Vital Signs/I&O Vital Signs Date Time Temp Pulse Resp B/P (MAP) Pulse Ox O2 Delivery O2 Flow Rate FiO2 08/16/19 06:00 97.6 82 20 154/81 (105) 98 08/15/19 20:57 Room Air 08/14/19 17:31 18.0 I&O- Last 24 Hours up to 6 AM 08/16/19 06:00 Intake Total 1700 ml Output Total 1400 ml Balance 300 ml Laboratory Data 24H LABS Laboratory Tests 2 08/15/19 10:48: Vancomycin Level Trough 16.9 08/15/19 11:28: Bedside Glucose (Misc Panel) 156H 08/15/19 16:34: Bedside Glucose (Misc Panel) 166H 08/15/19 20:23: Bedside Glucose (Misc Panel) 196H 08/16/19 05:35: Erythrocyte Sedimentation Rate 126H, C-Reactive Protein, Quantitative 5.74H 08/16/19 06:09: Bedside Glucose (Misc Panel) 152H Microbiology Microbiology 08/14/19 Gram Stain - Final, Resulted 08/14/19 Abscess Culture, Resulted Pending 08/14/19 Anaerobic Culture, Received Pending 08/06/19 Gram Stain - Final, Complete 08/06/19 Wound Culture - Final, Complete Staphylococcus Sp Coag Neg 08/06/19 Blood Culture - Final, Complete NO GROWTH AFTER 5 DAYS 08/06/19 Blood Culture - Final, Complete NO GROWTH AFTER 5 DAYS 08/06/19 Blood Culture - Final, Complete NO GROWTH AFTER 5 DAYS RUBÉN MONTEIRO PA-C Aug 16, 2019 09:44 Leonard Quiroz M.D. Aug 16, 2019 16:11
[2019-08-16] MEDS: ENOXAPARIN 40 MG/0.4 ML SYRINGE (J1650) SC SCH (09:59)
[2019-08-16] MEDS: SILVER SULFADIAZINE 1% CR 50 GM JAR TOP SCH (10:00)
[2019-08-16] MEDS: FOLIC ACID 1 MG TAB PO SCH (10:01)
[2019-08-16] MEDS: HumaLOG INSULIN (NovoLOG) PER UNIT SC SCH ×4 (10:01→21:19)
[2019-08-16] MEDS: PARoxetine 20 MG TAB PO SCH (10:01)
[2019-08-16] MEDS: OMEPRAZOLE 20 MG CAP PO SCH (10:01)
[2019-08-16] MEDS: lisinopriL 40 MG TAB PO SCH (10:01)
[2019-08-16] MEDS: ASPIRIN 81 MG ENTERIC TAB PO SCH (10:01)
[2019-08-16] MEDS: PERCOCET 5MG/325MG TAB PO PRN ×2 (10:01→19:11)
--- NOTE | 2019-08-16 12:23 | PHACANCOPD ---
PHARMACY VANCOMYCIN DOSING Pt Demographics Demographics Patient Age:59 , Weight:108.000 , Gender: male Adjusted Body Weight Date: 08/06/19, Adjusted Body Weight: [91] Kg Events Past 24 Hours Events Past 24 Hours: NO: Dialysis, Diuretic Therapy, Change in CrCl, Fever, Elevation in WBC, Pending Diagnostics, Pending Procedures, Other Vancomycin Vancomycin indication: SSTI Vancomycin Target Ranges: 10-20 mcg/ml Vancomycin Load Y/N: Yes Load Dose Date Time Date: 08/09/19. Current Vancomycin Dose: [750MG Q8H] Vancomycin Load Dose: 2000MG Date: 08/06/19 Time: 1700 Vancomycin Dose Date: 08/06/19. Current Vancomycin Dose: [ 1500mg q12h ] Intermittent Dosing?: No Labs Labs Item Value Date Time Creatinine 1.01 MG/DL 08/13/19 0543 Creatinine 1.09 MG/DL 08/15/19 0557 Vancomycin Level Trough 16.9 UG/ML 08/15/19 1048 Vancomycin Level Trough 16.4 UG/ML 08/16/19 1050 White Blood Count 8.7 10^3/uL 08/13/19 0543 White Blood Count 7.6 10^3/uL 08/14/19 0620 White Blood Count 7.3 10^3/uL 08/15/19 0557 C-Reactive Protein, Quantitative 7.19 MG/DL H 08/14/19 0620 C-Reactive Protein, Quantitative 7.18 MG/DL H 08/15/19 0557 C-Reactive Protein, Quantitative 5.74 MG/DL H 08/16/19 0535 Micro Microbiology 08/14/19 Gram Stain - Final, Resulted 08/14/19 Abscess Culture - Preliminary, Resulted Staphylococcus Aureus 08/14/19 Anaerobic Culture, Received Pending 08/06/19 Gram Stain - Final, Complete 08/06/19 Wound Culture - Final, Complete Staphylococcus Sp Coag Neg 08/06/19 Blood Culture - Final, Complete NO GROWTH AFTER 5 DAYS 08/06/19 Blood Culture - Final, Complete NO GROWTH AFTER 5 DAYS 08/06/19 Blood Culture - Final, Complete NO GROWTH AFTER 5 DAYS Creatinine Clearance Date:08/09/19. Creatinine Clearance: [>100]. Date:08/06/19. Creatinine Clearance: [ 63.6 mL/min ]. Assessment and Plan Maintaining Current Dose?: Yes Reason for dose change: No Dose Change Pharmacist Note Pharmacist Note Date: 08/16/19. Pharmacist note: The vancomycin trough came back today @16.4mcg/ml. We will continue 1g IV every 12 hours. We will continue to monitor and adjust the dose as needed. Date: 08/14/19. Pharmacist note: Vancomycin trough drawn @1054 reported as 20.1. Will change dose to 1 gm IV q12h, pharmacy will continue to monitor and make adjustments as needed. Date: 08/12/19. Pharmacist note:Vancomycin trough drawn tonight@1:18 reported as 15.3(goal=15-20).SCR slightly increased 08/11@1.16(CRCL=78.5 calculated)Will continue w/current Vancomycin regimen of 750mg IV Q8H.also continuing is Pip/Tazo 3.375 gm q6h.-will continue to follow Date: 08/09/19. Pharmacist note:Vancomycin trough drawn this am@3:55 reported as 21.7. SCR improved ,1.0 this a.m.,Calculated CRCL>100.Vancomycin dose will be adjusted to 750mg IV [id number] to begin @0900-as i believe patient may be accumulating a bit and also trough goal= 10-20). Next trough is scheduled for tomorrow@1600. Patient remains on Pip/Tazo 3.375gm q6h- will continue to follow Date: 08/06/19. Pharmacist note: Patient ROSITA is a 59 year old male who presented to the emergency department at [facility] after failing outpatient therapy of clindamycin to treat a right lower extremity cellulitis. He presents now with purulent cellulitis. He was started on broad-spectrum antibiotic therapy consisting of Zosyn 3.375 grams every six hours and vancomycin for methicillin-resistant S. aureus coverage. He has previously received vancomycin at [facility], but for this admission he presents with improved renal function. A loading dose of 2 grams was scheduled for this evening, with a maintenance dose of 1.5 grams every 12 hours starting tomorrow morning. His goal vancomycin trough is 10-20 mcg/dL. We will continue to monitor and make adjustments as needed. [facility] Aug 16, 2019 12:23
[2019-08-16 14:00] VITALS: BP 140/83
--- NOTE | 2019-08-16 17:27 | IPNPDOC ---
Date Seen The patient was seen on 08/16/19. Progress Note SUBJECTIVE: Patient was interviewed and examined in his hospital room today. He reports significant improvement in his lower extremity pain s/p abscess drainage. Pt states he had no acute events overnight. Pt denies any fever, nausea, vomiting, chest pain, shortness of breath, abdominal pain, diarrhea, constipation, hematuria. OBJECTIVE: Vitals: Please see below General: Pt interviewed and examined in his hospital room. Alert and oriented, in no acute distress. Heart: Regular rate and rhythm. +S1 and +S2, no murmurs, rubs, gallops appreciated. Lung: Clear to auscultation bilaterally, no wheezing, rales, or rhonchi. Extremity: Drain placed on right lateral thigh. Right leg remains tender to palpation but erythema and edema have improved. Induration noted on lateral aspect of gastrocnemius. 1+ edema on the right leg. 2+ peripheral pulses b/l. Psych: Mood and affect are appropriate given patient's current medical condition. ASSESSMENT: 59 year old male, past medical history significant for insulin- dependent diabetes mellitus type 2 and hypertension with R LE cellulitis and swelling, who failed outpatient Abx therapy, admitted to the hospital for IV abx therapy. S/P I&D 08/14. Drained 20 mL today from right leg today. PLAN: 1. Right leg cellulitis with abscess: S/p drainage 08/14. Cultures from 08/14 taken from the abscess grew Staphylococcus Aureus. Discontinue Zosyn. Continue IV Vanco 750 Q8hr. 2. Induration noted on lateral aspect of gastrocnemius. Ultrasound of right leg ordered to visualize possible abscess. GME ATTESTATION My faculty preceptor for this patient encounter was physically present during the encounter and was fully available. All aspects of the patient interview, examination, medical decision making process, and medical care plan development were reviewed and approved by the faculty preceptor. The faculty preceptor is aware and concurs with the plan as stated in the body of this note and will attest to such by his/her cosignature. VS, I&O, 24H, Fishbone Vital Signs/I&O Vital Signs Date Time Temp Pulse Resp B/P (MAP) Pulse Ox O2 Delivery O2 Flow Rate FiO2 08/16/19 11:54 12 08/16/19 06:00 97.6 82 154/81 (105) 98 08/15/19 20:57 Room Air 08/14/19 17:31 18.0 I&O- Last 24 Hours up to 6 AM 08/16/19 06:00 Intake Total 1700 ml Output Total 1400 ml Balance 300 ml Laboratory Data 24H LABS Laboratory Tests 2 08/15/19 16:34: Bedside Glucose (Misc Panel) 166H 08/15/19 20:23: Bedside Glucose (Misc Panel) 196H 08/16/19 05:35: Erythrocyte Sedimentation Rate 126H, C-Reactive Protein, Quantitative 5.74H 08/16/19 06:09: Bedside Glucose (Misc Panel) 152H 08/16/19 10:50: Vancomycin Level Trough 16.4 08/16/19 11:34: Bedside Glucose (Misc Panel) 176H Microbiology Microbiology 08/14/19 Gram Stain - Final, Resulted 08/14/19 Abscess Culture - Preliminary, Resulted Staphylococcus Aureus 08/14/19 Anaerobic Culture, Received Pending 08/06/19 Gram Stain - Final, Complete 08/06/19 Wound Culture - Final, Complete Staphylococcus Sp Coag Neg 08/06/19 Blood Culture - Final, Complete NO GROWTH AFTER 5 DAYS 08/06/19 Blood Culture - Final, Complete NO GROWTH AFTER 5 DAYS 08/06/19 Blood Culture - Final, Complete NO GROWTH AFTER 5 DAYS PATT LAGOS OMS-IV Aug 16, 2019 14:14
--- NOTE | 2019-08-16 19:33 | REPVR ---
PROCEDURE INFORMATION: Exam: US Right Non-Vascular Joint or Other Extremity Structure, Limited Lower Extremity Exam date and time: 08/16/2019 6:27 PM Age: 59 years old Clinical indication: Abnormal findings; Abnormal imaging study; Prior mri & US of lateral right leg - leg abscess; Additional info: Attention R popliteal fossa, favor abscess TECHNIQUE: Imaging protocol: Right US Non-Vascular Joint or Other Extremity Structure. Limited exam of the lower extremity. COMPARISON: CR Femur 08/09/2019 8:59 AM FINDINGS: Soft tissues: Clinically there is an area of redness from the right lateral thigh into the right lateral lower leg. A surgical drain is noted more superiorly in a previously demonstrated fluid collection. In the area of the previously noted fluid collection, there is air which causes significant artifact presumably related to the drain. Inferior to the tube there is complex collection measuring 22.2 x 1.4 x 5.8 cm. This extends into the upper calf more inferiorly. Please correlate clinically. Bones/joints: Not demonstrated. IMPRESSION: 1. Clinically there is an area of redness from the right lateral thigh into the right lateral lower leg. A surgical drain is noted more superiorly in a previously demonstrated fluid collection. 2. In the area of the previously noted fluid collection, there is air which causes significant artifact presumably related to the drain. 3. Inferior to the tube there is complex collection measuring 22.2 x 1.4 x 5.8 cm. This extends into the upper calf more inferiorly. Please correlate clinically. Electronically signed by: Simon Jones On 08/16/2019 19:33:36 PM
[2019-08-16] MEDS: ATORVASTATIN 20 MG TAB PO SCH (21:18)
[2019-08-16] MEDS: FENOFIBRATE 145 MG TAB (TRICOR) PO SCH (21:18)
[2019-08-16] MEDS: LEVEMIR (INSULIN DETEMIR) 1 UNITS/0.01ML SC SCH (21:19)
[2019-08-16 22:00] VITALS: BP 142/81
[2019-08-17] MEDS: PERCOCET 5MG/325MG TAB PO PRN ×2 (05:01→17:05)
[2019-08-17 06:00] VITALS: BP 162/78
[2019-08-17] MEDS: OMEPRAZOLE 20 MG CAP PO SCH (08:20)
[2019-08-17] MEDS: SILVER SULFADIAZINE 1% CR 50 GM JAR TOP SCH (08:20)
[2019-08-17] MEDS: ENOXAPARIN 40 MG/0.4 ML SYRINGE (J1650) SC SCH (08:20)
[2019-08-17] MEDS: lisinopriL 40 MG TAB PO SCH (08:20)
[2019-08-17] MEDS: HumaLOG INSULIN (NovoLOG) PER UNIT SC SCH ×4 (08:20→21:00)
[2019-08-17] MEDS: FOLIC ACID 1 MG TAB PO SCH (08:20)
[2019-08-17] MEDS: PARoxetine 20 MG TAB PO SCH (08:20)
[2019-08-17] MEDS: ASPIRIN 81 MG ENTERIC TAB PO SCH (08:20)
[2019-08-17] MEDS: NAFCILLIN SOD 2 GM in D5W MINI-BAG PLUS 50 ML IV SCH ×3 (11:17→21:29)
--- NOTE | 2019-08-17 11:45 | IPNPDOC ---
Subjective Date Seen The patient was seen on 08/17/19. Subjective Chief Complaint/HPI Pt this morning without new concerns. He is frustrated, doesn't really feel as though his leg is any better. General: Denies: Fatigue Constitutional: Denies: Chills, Fever Skin: Denies: Rash, Lesions Pulmonary: Denies: Dyspnea, Cough Cardiovascular: Denies: Chest Pain, Palpitations Gastrointestinal: Denies: Nausea, Vomiting, Diarrhea Neurological: Denies: Weakness Psych: Reports: Mood Normal Objective Physical Examination General Exam: Positive: Alert, No Acute Distress ENT Exam: Positive: Mucous membr. moist/pink Chest Exam: Positive: Clear to auscultation, Normal air movement; Negative: Rales, Rhonchi, Wheezing Heart Exam: Positive: Rate Normal, Regular Rhythm Abdomen Exam: Positive: Normal bowel sounds, Soft; Negative: Tenderness Extremity Exam: Positive: Edema (Edema improving), Normal pulses Skin Exam: Positive: Other skin issue (ERythema resolved on right LE. Wounds on posterior thigh healing - drain in place) Neuro Exam: Positive: Normal Speech Psych Exam: Positive: Mental status NL Assessment /Plan Problems (1) Abscess of right lower leg Status: Acute Problem Text: 08/17 Will obtain US guided drainage to reassess further for fluid collection, ID following, Abx changed to Nafcillin. 08/16 concern for another abscess in R popliteal fossa-obtain STAT US, plan drainage in AM (Of note: MRI leg ordered thursday 08/10 at 9:20 am) - not done until 08/13) (2) Cellulitis of right lower extremity Status: Acute Problem Specific Plan: Consult Specialist Problem Text: D12 abx, now on Nafcillin, had been on Vanco/Zosyn 05/14 R posterior thigh WCX S. aureus, sens P (3) Diabetes Status: Chronic Problem Text: HD glar U-300 120 QHS, empag 25, glybur 5 BID 08/13 AC TID low 200s on det 40 QHS; therefore, increased to 55 (4) Nicotine addiction Status: Chronic Response to Treatment: Stable (5) Anemia Status: Acute Response to Treatment: Progressing Discussed With: Patient Problem Specific Plan: Monitor Clinically, Repeat Labs Problem Text: favor ACD +/- acute loss + FA def (08/14 FA 3; therefore + 1 mg po QD); therefore, HO all stools-stop Lovenox if + 08/13 hgb 8.5 (08/06/19 12.1; 10/2018 16.4!) 08/06/19 Fe 47, TIBC 178, %sat 26.4, Ferritin 1451 (likely elevated d/t infection) anemia due chronic disease, will add OB, B12, Folate. (6) PVD (peripheral vascular disease) Status: Chronic Problem Text: 12/07/2016 PREPROCEDURE DIAGNOSIS: Nonhealing right first toe ulcer, right foot deformity. POSTPROCEDURE DIAGNOSIS: Nonhealing right first toe ulcer, right foot deformity. PROCEDURE: Aortogram, iliofemoral angiogram, selective right common femoral artery catheter placement with right lower extremity angiogram, Mynx closure of the left common femoral arteriotomy. SURGEON: Dr. Leonel Cain. (7) Physical deconditioning Status: Chronic Problem Text: 08/14 PT safe to dc home Plan/VTE VTE Prophylaxis Ordered?: Yes (Lovenox) Plan Therapy: PT VS, I&O, 24H, Fishbone Vital Signs/I&O Vital Signs Date Time Temp Pulse Resp B/P (MAP) Pulse Ox O2 Delivery O2 Flow Rate FiO2 08/17/19 06:00 97.4 88 20 162/78 (106) 98 08/16/19 14:00 Room Air 08/14/19 17:31 18.0 I&O- Last 24 Hours up to 6 AM 08/17/19 06:00 Intake Total 1690 ml Output Total 1355 ml Balance 335 ml Laboratory Data 24H LABS Laboratory Tests 2 08/16/19 16:35: Bedside Glucose (Misc Panel) 298H 08/16/19 20:33: Bedside Glucose (Misc Panel) 251H 08/17/19 05:28: Erythrocyte Sedimentation Rate 107H, C-Reactive Protein, Quantitative 4.90H 08/17/19 07:59: Bedside Glucose (Misc Panel) 242H 08/17/19 11:25: Bedside Glucose (Misc Panel) 220H Microbiology Microbiology 08/14/19 Gram Stain - Final, Complete 08/14/19 Abscess Culture - Final, Complete Staphylococcus Aureus 08/14/19 Anaerobic Culture - Final, Complete RUBÉN MONTEIRO PA-C Aug 17, 2019 11:45
[2019-08-17] MEDS ORDERED: LIDOCAINE 1% MDV 20ML VIAL As Ordered ONE (14:50)
--- NOTE | 2019-08-17 16:28 | REP ---
Ultrasound-guided abscess drain The procedure was performed by UDAY Solorzano, under the direct supervision of Dr. Babcock. The risks and benefits of the procedure were explained to the patient and informed consent was obtained both verbally and written. Directly prior to the start of the procedure, a formal timeout was completed in the procedure room. Under ultrasound guidance, the largest pocket of fluid in the posterior lateral right calf was localized and skin was marked. The skin was then prepped and draped in a sterile fashion. 3 ml of 1% lidocaine 10 mg/ml was used as a local anesthetic. Using ultrasound guidance, an 8-Bengali multi side-hole pigtail catheter was inserted using trocar technique. 3 mL of bloody pus colored fluid was withdrawn and sent to the lab for further analysis. A drainage bag was attached to the end of the catheter. The patient tolerated the procedure well and there were no immediate complications. After the appropriate monitored convalescence the patient was discharged from the department. Reviewed by UDAY Blanton 08/17/2019 04:16 P Electronically Signed by Hoang Babcock MD 08/17/2019 04:20 P
--- NOTE | 2019-08-17 18:44 | IPNPDOC ---
Date Seen The patient was seen on 08/17/19. Progress Note SUBJECTIVE: Patient was interviewed and examined in his hospital room today. He reports significant improvement in his lower extremity pain s/p abscess drainage. Pt states he had no acute events overnight. Pt denies any fever, nausea, vomiting, chest pain, shortness of breath, abdominal pain, diarrhea, constipation, hematuria. OBJECTIVE: Vitals: Please see below General: Pt interviewed and examined in his hospital room. Alert and oriented, in no acute distress. Heart: Regular rate and rhythm. +S1 and +S2, no murmurs, rubs, gallops appreciated. Lung: Clear to auscultation bilaterally, no wheezing, rales, or rhonchi. Extremity: Drain placed on right lateral thigh. Right leg remains tender to palpation but erythema and edema have improved. Induration noted on lateral aspect of gastrocnemius. 1+ edema on the right leg. 2+ peripheral pulses b/l. Psych: Mood and affect are appropriate given patient's current medical condition. Right lower extremity Ultrasound: Clinically there is an area of redness from the right lateral thigh into the right lateral lower leg. A surgical drain is noted more superiorly in a previously demonstrated fluid collection. In the area of the previously noted fluid collection, there is air which causes significant artifact presumably related to the drain. Inferior to the tube there is complex collection measuring 22.2 x 1.4 x 5.8 cm. This extends into the upper calf more inferiorly. Please correlate clinically. ASSESSMENT: 59 year old male, past medical history significant for insulin- dependent diabetes mellitus type 2 and hypertension with R LE cellulitis and MSSA abscess. He failed outpatient Abx therapy, admitted to the hospital for IV abx therapy. S/P I&D 08/14 Drained 95 mL yesterday and 10 mL so far today from the right leg concerning for residual abscess that needs drainage inferiorly PLAN: 1. Right leg cellulitis with abscess: S/p drainage 08/14. Cultures from 08/14 taken from the abscess grew Staphylococcus Aureus that was resistant to Erythromycin and Penicillin G. Discontinue IV Vancomycin. Start Nafcillin 2 gm Q6hr for MSSA coverage. 2. Induration noted on lateral aspect of gastrocnemius. Ultrasound of right leg ordered visualized a complex collection measuring 22.2 x 1.4 x 5.8 cm. Will refer to radiology for possible further drainage with another drain Vs need for surgical intervention GME ATTESTATION My faculty preceptor for this patient encounter was physically present during the encounter and was fully available. All aspects of the patient interview, examination, medical decision making process, and medical care plan development were reviewed and approved by the faculty preceptor. The faculty preceptor is aware and concurs with the plan as stated in the body of this note and will attest to such by his/her cosignature. VS, I&O, 24H, Fishbone Vital Signs/I&O Vital Signs Date Time Temp Pulse Resp B/P (MAP) Pulse Ox O2 Delivery O2 Flow Rate FiO2 08/17/19 06:00 97.4 88 20 162/78 (106) 98 08/16/19 14:00 Room Air 08/14/19 17:31 18.0 I&O- Last 24 Hours up to 6 AM 08/17/19 06:00 Intake Total 1690 ml Output Total 1355 ml Balance 335 ml Laboratory Data 24H LABS Laboratory Tests 2 08/16/19 11:34: Bedside Glucose (Misc Panel) 176H 08/16/19 16:35: Bedside Glucose (Misc Panel) 298H 08/16/19 20:33: Bedside Glucose (Misc Panel) 251H 08/17/19 05:28: Erythrocyte Sedimentation Rate 107H, C-Reactive Protein, Quantitative 4.90H 08/17/19 07:59: Bedside Glucose (Misc Panel) 242H Microbiology Microbiology 08/14/19 Gram Stain - Final, Complete 08/14/19 Abscess Culture - Final, Complete Staphylococcus Aureus 08/14/19 Anaerobic Culture - Final, Complete PATT LAGOS OMS-IV Aug 17, 2019 11:32 Ernie Moran MD Aug 18, 2019 20:42
[2019-08-17] MEDS: ATORVASTATIN 20 MG TAB PO SCH (21:29)
[2019-08-17] MEDS: FENOFIBRATE 145 MG TAB (TRICOR) PO SCH (21:29)
[2019-08-17] MEDS: LEVEMIR (INSULIN DETEMIR) 1 UNITS/0.01ML SC SCH (21:29)
[2019-08-17 22:00] VITALS: BP 159/76
[2019-08-18] MEDS: NAFCILLIN SOD 2 GM in D5W MINI-BAG PLUS 50 ML IV SCH ×4 (03:29→21:17)
[2019-08-18 06:00] VITALS: BP 160/75
[2019-08-18 06:45] LABS: HEMATOCRIT 26.9 % (42.0-52.0); HEMOGLOBIN 8.5 g/dl (13.5-17.5); MEAN CORPUSCULAR HEMOGLOBIN 28.4 pg (27.0-33.0); MEAN CORPUSCULAR HGB CONC 31.6 g/dl (32.0-36.5); PLATELET COUNT, AUTOMATED 315 10^3/uL (150-450); RED BLOOD COUNT 2.99 10^6/uL (4.30-6.10); WHITE BLOOD COUNT 5.3 10^3/uL (4.0-10.0)
[2019-08-18 07:15] LABS: C REACTIVE PROTEIN QUANTITATIV 2.83 MG/DL (0.00-0.30); CREATININE FOR GFR 1.31 MG/DL (0.70-1.30); GLOMERULAR FILTRATION RATE 59.8 (>56); POTASSIUM SERUM 3.5 MEQ/L (3.5-5.1)
[2019-08-18] MEDS: HumaLOG INSULIN (NovoLOG) PER UNIT SC SCH ×4 (07:30→21:00)
[2019-08-18] MEDS: lisinopriL 40 MG TAB PO SCH (08:02)
[2019-08-18] MEDS: ASPIRIN 81 MG ENTERIC TAB PO SCH (08:02)
[2019-08-18] MEDS: FOLIC ACID 1 MG TAB PO SCH (08:02)
[2019-08-18] MEDS: OMEPRAZOLE 20 MG CAP PO SCH (08:02)
[2019-08-18] MEDS: PARoxetine 20 MG TAB PO SCH (08:02)
[2019-08-18] MEDS: PERCOCET 5MG/325MG TAB PO PRN ×2 (08:02→17:11)
[2019-08-18] MEDS: ENOXAPARIN 40 MG/0.4 ML SYRINGE (J1650) SC SCH (08:03)
[2019-08-18] MEDS: SILVER SULFADIAZINE 1% CR 50 GM JAR TOP SCH (11:09)
[2019-08-18 12:24] LABS: ERYTHROCYTE SEDIMENTATION RATE 135 mm/hr (0-20)
[2019-08-18 14:00] VITALS: BP 164/79
--- NOTE | 2019-08-18 15:40 | IPNPDOC ---
Subjective Date Seen The patient was seen on 08/18/19. Subjective Chief Complaint/HPI improved RLE pain General: Denies: Chills Constitutional: Denies: Chills Eyes: Denies: Pain ENT: Denies: Head Aches Skin: Denies: Rash Pulmonary: Denies: Dyspnea, Cough Cardiovascular: Denies: Chest Pain, Palpitations Gastrointestinal: Denies: Nausea, Vomiting Genitourinary: Denies: Dysuria Objective Physical Examination General Exam: Positive: Alert, No Acute Distress ENT Exam: Positive: Mucous membr. moist/pink Chest Exam: Positive: Clear to auscultation, Normal air movement; Negative: Rales, Rhonchi, Wheezing Heart Exam: Positive: Rate Normal, Regular Rhythm Abdomen Exam: Positive: Normal bowel sounds, Soft; Negative: Tenderness Extremity Exam: Positive: Edema (Edema improving), Normal pulses Skin Exam: Positive: Other skin issue (ERythema resolved on right LE. Wounds on posterior thigh healing - drain in place) Neuro Exam: Positive: Normal Speech Psych Exam: Positive: Mental status NL Assessment /Plan Problems (1) PVD (peripheral vascular disease) Permanent Comment: 12/07/2016 PREPROCEDURE DIAGNOSIS: Nonhealing right first toe ulcer, right foot deformity. POSTPROCEDURE DIAGNOSIS: Nonhealing right first toe ulcer, right foot deformity. PROCEDURE: Aortogram, iliofemoral angiogram, selective right common femoral artery catheter placement with right lower extremity angiogram, Mynx closure of the left common femoral arteriotomy. SURGEON: Dr. Leonel Cain. Last Edited By: Leonard Quiroz MD on Aug 18, 2019 15: 12 Status: Chronic Problem Text: check arterial doppler (2) Cellulitis of right lower extremity Status: Acute Problem Specific Plan: Consult Specialist Problem Text: D2 Nafcillin, (prior 10D Vanco/Zosyn) 08/18 AF, WBC 5.3 (7.3), CRP 3 (5), ESR 135 (107) 08/17 WBC R posterior calf P 08/14 WCX R posterior thigh MSSA 08/13 - RLE DVT (3) Hypertension Status: Chronic Problem Text: on HD lisin 40 (4) CKD stage G3a/A2, GFR 45-59 and albumin creatinine ratio 30-299 mg/g Status: Chronic Problem Text: tf on lisin 40 08/18 1.3 baseline cr 1.1-1.2 (5) Abscess of right lower leg Status: Acute Problem Text: 08/17 R posterior calf abscess drainage 08/14 R posterior thigh abscess drainage (6) Diabetes Status: Chronic Problem Text: HD glar U-300 120 QHS, empag 25, glybur 5 BID 08/18 AC TID low 200s; therefore, det to 70 08/13 AC TID low 200s on det 40 QHS; therefore, increased to 55 (7) Nicotine addiction Status: Chronic Response to Treatment: Stable (8) Anemia Status: Acute Response to Treatment: Progressing Discussed With: Patient Problem Specific Plan: Monitor Clinically, Repeat Labs Problem Text: favor ACD +/- acute loss + FA def (08/14 FA 3; therefore + 1 mg po QD); therefore, HO all stools-stop Lovenox if + 08/18 8.5 08/13 hgb 8.5 (08/06/19 12.1; 10/2018 16.4!) 08/06/19 Fe 47, TIBC 178, %sat 26.4, Ferritin 1451 (likely elevated d/t infection) anemia due chronic disease, will add OB, B12, Folate. (9) Physical deconditioning Status: Chronic Problem Text: 08/14 PT safe to dc home Plan/VTE VTE Prophylaxis Ordered?: Yes (Lovenox) Plan Therapy: PT VS, I&O, 24H, Fishbone Vital Signs/I&O Vital Signs Date Time Temp Pulse Resp B/P (MAP) Pulse Ox O2 Delivery O2 Flow Rate FiO2 08/18/19 14:00 97.8 79 17 164/79 (107) 98 Room Air 08/14/19 17:31 18.0 I&O- Last 24 Hours up to 6 AM 08/18/19 06:00 Intake Total 1400 ml Output Total 500 ml Balance 900 ml Laboratory Data 24H LABS Laboratory Tests 2 08/17/19 16:36: Bedside Glucose (Misc Panel) 202H 08/17/19 20:46: Bedside Glucose (Misc Panel) 202H 08/18/19 06:21: Nucleated Red Blood Cells % (auto) 0.0, Erythrocyte Sedimentation Rate 135H, Anion Gap 5L, Glomerular Filtration Rate 59.8, Calcium Level 8.0L, C-Reactive Protein, Quantitative 2.83H 08/18/19 11:52: Bedside Glucose (Misc Panel) 224H CBC/BMP Laboratory Tests 08/18/19 06:21 Microbiology Microbiology 08/17/19 Gram Stain - Final, Resulted 08/17/19 Abscess Culture, Resulted Pending 08/17/19 Anaerobic Culture, Resulted Pending 08/14/19 Gram Stain - Final, Complete 08/14/19 Abscess Culture - Final, Complete Staphylococcus Aureus 08/14/19 Anaerobic Culture - Final, Complete Leonard Quiroz M.D. Aug 18, 2019 15:40
[2019-08-18 18:50] VITALS: BP 164/79
[2019-08-18] MEDS: FENOFIBRATE 145 MG TAB (TRICOR) PO SCH (21:16)
[2019-08-18] MEDS: ATORVASTATIN 20 MG TAB PO SCH (21:16)
[2019-08-18] MEDS: LEVEMIR (INSULIN DETEMIR) 1 UNITS/0.01ML SC SCH (21:17)
[2019-08-18 22:00] VITALS: BP 159/80
[2019-08-19] MEDS: NAFCILLIN SOD 2 GM in D5W MINI-BAG PLUS 50 ML IV SCH ×4 (03:16→21:34)
[2019-08-19 06:00] VITALS: BP 156/76
[2019-08-19 06:03] LABS: BASO % 0.5 % (0.0-1.0); EOS # 0.1 10^3/uL (0.0-0.5); EOS % 1.6 % (0.0-3.0); HEMATOCRIT 26.8 % (42.0-52.0); HEMOGLOBIN 8.3 g/dl (13.5-17.5); LYMPH # 1.2 10^3/uL (1.5-5.0); LYMPH % 27.5 % (24.0-44.0); MEAN CORPUSCULAR HEMOGLOBIN 28.1 pg (27.0-33.0); MEAN CORPUSCULAR VOLUME 90.8 fl (80.0-96.0); MONO # 0.3 10^3/uL (0.0-0.8); MONO % 7.2 % (0.0-5.0); NEUTROPHILS # 2.7 10^3/uL (1.5-8.5); NEUTROPHILS % 62.5 % (36.0-66.0); PLATELET COUNT, AUTOMATED 239 10^3/uL (150-450); RED BLOOD COUNT 2.95 10^6/uL (4.30-6.10); WHITE BLOOD COUNT 4.3 10^3/uL (4.0-10.0)
[2019-08-19 06:31] LABS: ALBUMIN 1.7 GM/DL (3.2-5.2); BILIRUBIN,TOTAL 0.4 MG/DL (0.2-1.0); C REACTIVE PROTEIN QUANTITATIV 2.02 MG/DL (0.00-0.30); CALCIUM LEVEL 7.9 MG/DL (8.5-10.1); CREATININE FOR GFR 1.39 MG/DL (0.70-1.30); GLOMERULAR FILTRATION RATE 55.9 (>56); POTASSIUM SERUM 3.5 MEQ/L (3.5-5.1); TOTAL PROTEIN 5.9 GM/DL (6.4-8.2)
--- NOTE | 2019-08-19 08:17 | REP ---
Right lower extremity arterial Doppler ultrasound: Brachial peak systole: 184 mmHg. Dorsalis pedis peak systole: 214 mmHg. ANAESTHETIC TECHNICIAN peak systole: 202 mmHg. JEN: 1.16. The Peak Systolic Phasicity Velocity FORGER HELPER the the 139 triphasic Profunda 199 triphasic SFA prox 145/223 triphasic SFA mid 97.6 triphasic SFA dist 107 triphasic Pop 52.8 triphasic SALVADOR prox 86.3 triphasic Tib/P tr 65.6 triphasic ANAESTHETIC TECHNICIAN pr 83.2 triphasic ANAESTHETIC TECHNICIAN dst 55.0 biphasic SALVADOR dst 82.7 biphasic There is moderate atheromatous plaque throughout the right lower extremity. There are bi/triphasic wave forms. There is stenosis at the right SFA proximal. The No stent is identified from the FORGER HELPER to the ankle. Electronically Signed by Hoang De León MD 08/19/2019 08:09 A
[2019-08-19] MEDS: HumaLOG INSULIN (NovoLOG) PER UNIT SC SCH ×4 (08:42→21:35)
[2019-08-19] MEDS: ENOXAPARIN 40 MG/0.4 ML SYRINGE (J1650) SC SCH (08:42)
[2019-08-19] MEDS: PERCOCET 5MG/325MG TAB PO PRN ×3 (08:45→21:37)
[2019-08-19] MEDS: FOLIC ACID 1 MG TAB PO SCH (08:46)
[2019-08-19] MEDS: ASPIRIN 81 MG ENTERIC TAB PO SCH (08:46)
[2019-08-19] MEDS: lisinopriL 40 MG TAB PO SCH (08:46)
[2019-08-19] MEDS: OMEPRAZOLE 20 MG CAP PO SCH (08:47)
[2019-08-19] MEDS: PARoxetine 20 MG TAB PO SCH (08:47)
[2019-08-19] MEDS: SILVER SULFADIAZINE 1% CR 50 GM JAR TOP SCH (10:09)
--- NOTE | 2019-08-19 11:18 | IPNPDOC ---
Subjective Date Seen The patient was seen on 08/19/19. Subjective Chief Complaint/HPI improved RLE pain Constitutional: Denies: Chills, Fever Eyes: Denies: Pain ENT: Denies: Head Aches Pulmonary: Denies: Dyspnea, Cough Cardiovascular: Denies: Chest Pain Gastrointestinal: Denies: Nausea, Vomiting Objective Physical Examination General Exam: Positive: Alert, No Acute Distress Eye Exam: Positive: Sclera icteric ENT Exam: Positive: Mucous membr. moist/pink Chest Exam: Positive: Clear to auscultation, Normal air movement; Negative: Rales, Rhonchi, Wheezing Heart Exam: Positive: Rate Normal, Regular Rhythm Abdomen Exam: Positive: Normal bowel sounds, Soft; Negative: Tenderness Extremity Exam: Positive: Normal pulses, Tenderness, Swelling Skin Exam: Positive: Other skin issue (ERythema resolved on right LE. Wounds on posterior thigh healing - drain in place) Neuro Exam: Positive: Normal Speech Psych Exam: Positive: Mental status NL Assessment /Plan Problems (1) Abscess of right lower leg Status: Acute Problem Text: 08/19 repeat fluid collection R posterior distal thigh-plan repeat US drainage 08/20 08/17 R posterior calf abscess drainage 08/14 R posterior thigh abscess drainage (2) Cellulitis of right lower extremity Status: Acute Problem Specific Plan: Consult Specialist Problem Text: D3 Nafcillin, (prior 10D Vanco/Zosyn) plan PICC placement for home abx 08/20 08/19 4.3, CRP 2 08/18 AF, WBC 5.3 (7.3), CRP 3 (5), ESR 135 (107) 08/17 WBC R posterior calf S. aureus 08/14 WCX R posterior thigh MSSA 08/13 - RLE DVT (3) PVD (peripheral vascular disease) Permanent Comment: Last Edited By: Leonard Quiroz MD on Aug 19, 2019 11:27 Status: Chronic Problem Text: 08/18 RLE arterial doppler: There is moderate atheromatous plaque throughout the right lower extremity. There are bi/triphasic wave forms. There is stenosis at the right SFA proximal. The No stent is identified from the SHEET METAL WELDER to the ankle. Electronically Signed by Hoang De León MD 08/19/2019 08:09 A DD: Hoang De León MD 08/19/19 0802 DT: Chasity 08/19/19 0809 DS: RONIT 08/19/19 0809 08/19/19 0809 [~ rep ct labl] (4) Hypertension Status: Chronic Problem Text: HD lisin 40 as per CKD (5) CKD stage G3a/A2, GFR 45-59 and albumin creatinine ratio 30-299 mg/g Status: Chronic Problem Text: 08/19 1.4, K 3.5 c SBP 140-160; therefore, HD lisin 40 to amlo 5 BID; check CK given fibrate/statin combo use 08/18 1.3 baseline cr 1.1-1.2 (6) Diabetes Status: Chronic Problem Text: HD glar U-300 120 QHS, empag 25, glybur 5 BID 08/18 AC TID low 200s; therefore, det to 70 08/13 AC TID low 200s on det 40 QHS; therefore, increased to 55 (7) Nicotine addiction Status: Chronic Response to Treatment: Stable (8) Anemia Status: Acute Response to Treatment: Progressing Discussed With: Patient Problem Specific Plan: Monitor Clinically, Repeat Labs Problem Text: favor ACD +/- acute loss + FA def (08/14 FA 3; therefore + 1 mg po QD); therefore, HO all stools-stop Lovenox if + 08/18 8.5 08/13 hgb 8.5 (08/06/19 12.1; 10/2018 16.4!) 08/06/19 Fe 47, TIBC 178, %sat 26.4, Ferritin 1451 (likely elevated d/t infection) anemia due chronic disease, will add OB, B12, Folate. (9) Physical deconditioning Status: Chronic Problem Text: 08/14 PT safe to dc home (10) Protein calorie malnutrition Status: Acute Problem Text: 08/19 alb 1.7-+ Ensure DM BID Plan/VTE VTE Prophylaxis Ordered?: Yes (Lovenox) Plan Therapy: PT VS, I&O, 24H, Fishbone Vital Signs/I&O Vital Signs Date Time Temp Pulse Resp B/P (MAP) Pulse Ox O2 Delivery O2 Flow Rate FiO2 08/19/19 10:01 14 Room Air 08/19/19 06:00 98.6 72 156/76 (102) 97 08/14/19 17:31 18.0 I&O- Last 24 Hours up to 6 AM 08/19/19 06:00 Intake Total 617 ml Output Total 225 ml Balance 392 ml Laboratory Data 24H LABS Laboratory Tests 2 08/18/19 11:52: Bedside Glucose (Misc Panel) 224H 08/18/19 16:58: Bedside Glucose (Misc Panel) 214H 08/18/19 21:07: Bedside Glucose (Misc Panel) 214H 08/19/19 05:50: Immature Granulocyte % (Auto) 0.7, Neutrophils (%) (Auto) 62.5, Lymphocytes (%) (Auto) 27.5, Monocytes (%) (Auto) 7.2H, Eosinophils (%) (Auto) 1.6, Basophils (%) (Auto) 0.5, Neutrophils # (Auto) 2.7, Lymphocytes # (Auto) 1.2L, Monocytes # (Auto) 0.3, Eosinophils # (Auto) 0.1, Basophils # (Auto) 0.0, Nucleated Red Blood Cells % (auto) 0.0, Anion Gap 6L, Glomerular Filtration Rate 55.9L, Calcium Level 7.9L, Total Bilirubin 0.4, Aspartate Amino Transf (AST/SGOT) 9, Alanine Aminotransferase (ALT/SGPT) 12, Alkaline Phosphatase 77, C-Reactive Protein, Quantitative 2.02H, Total Protein 5.9L, Albumin 1.7L, Albumin/Globulin Ratio 0.40L CBC/BMP Laboratory Tests 08/19/19 05:50 Microbiology Microbiology 08/17/19 Gram Stain - Final, Resulted 08/17/19 Abscess Culture - Preliminary, Resulted Staphylococcus Aureus 08/17/19 Anaerobic Culture - Final, Resulted 08/14/19 Gram Stain - Final, Complete 08/14/19 Abscess Culture - Final, Complete Staphylococcus Aureus 08/14/19 Anaerobic Culture - Final, Complete Leonard Quiroz M.D. Aug 19, 2019 11:18
[2019-08-19 14:00] VITALS: BP 147/67
[2019-08-19] MEDS: LEVEMIR (INSULIN DETEMIR) 1 UNITS/0.01ML SC SCH (21:36)
[2019-08-19] MEDS: ATORVASTATIN 20 MG TAB PO SCH (21:37)
[2019-08-19] MEDS: FENOFIBRATE 145 MG TAB (TRICOR) PO SCH (21:37)
[2019-08-19] MEDS: amLODIPine 5 MG TAB PO SCH (21:38)
[2019-08-19 22:00] VITALS: BP 170/80
[2019-08-19 22:03] LABS: ERYTHROCYTE SEDIMENTATION RATE 88 mm/hr (0-20)
[2019-08-20] MEDS: NAFCILLIN SOD 2 GM in D5W MINI-BAG PLUS 50 ML IV SCH ×4 (04:31→22:02)
[2019-08-20 06:00] VITALS: BP 167/79
[2019-08-20 06:24] LABS: BASO # 0.1 10^3/uL (0.0-0.2); BASO % 1.2 % (0.0-1.0); EOS # 0.1 10^3/uL (0.0-0.5); EOS % 1.6 % (0.0-3.0); HEMATOCRIT 26.8 % (42.0-52.0); HEMOGLOBIN 8.2 g/dl (13.5-17.5); LYMPH # 1.2 10^3/uL (1.5-5.0); LYMPH % 27.3 % (24.0-44.0); MEAN CORPUSCULAR HEMOGLOBIN 28.1 pg (27.0-33.0); MEAN CORPUSCULAR HGB CONC 30.6 g/dl (32.0-36.5); MEAN CORPUSCULAR VOLUME 91.8 fl (80.0-96.0); MONO # 0.3 10^3/uL (0.0-0.8); MONO % 6.5 % (0.0-5.0); NEUTROPHILS # 2.7 10^3/uL (1.5-8.5); NEUTROPHILS % 62.7 % (36.0-66.0); PLATELET COUNT, AUTOMATED 284 10^3/uL (150-450); RED BLOOD COUNT 2.92 10^6/uL (4.30-6.10); WHITE BLOOD COUNT 4.3 10^3/uL (4.0-10.0)
[2019-08-20 06:58] LABS: ALBUMIN 1.9 GM/DL (3.2-5.2); ALT/SGPT 16 U/L (12-78); BILIRUBIN,TOTAL 0.4 MG/DL (0.2-1.0); BLOOD UREA NITROGEN 20 MG/DL (7-18); C REACTIVE PROTEIN QUANTITATIV 1.42 MG/DL (0.00-0.30); CARBON DIOXIDE LEVEL 30 MEQ/L (21-32); CHLORIDE LEVEL 105 MEQ/L (98-107); GLOMERULAR FILTRATION RATE > 60.0 (>56); GLUCOSE, FASTING 229 MG/DL (70-100); POTASSIUM SERUM 3.4 MEQ/L (3.5-5.1); SODIUM LEVEL 141 MEQ/L (136-145); TOTAL PROTEIN 6.2 GM/DL (6.4-8.2)
[2019-08-20] MEDS: ENOXAPARIN 40 MG/0.4 ML SYRINGE (J1650) SC SCH (09:00)
--- NOTE | 2019-08-20 09:40 | IPNPDOC ---
Subjective Date Seen The patient was seen on 08/20/19. Subjective Chief Complaint/HPI MSSA infection. Seen today, and agree with note as below. Plan had been for him to receive another US-guided drainage of his leg abscess, but in radiology he was felt to have no more drainable collections of fluid, and previous drain was left out. -- CDT Events since last encounter Remains afebrile. Planned further drainage of abscess today with IR. Constitutional: Denies: Chills, Fever, Night Sweats ENT: Denies: Head Aches, Ear Pain, Dysphagia Pulmonary: Denies: Dyspnea, Cough Cardiovascular: Denies: Chest Pain, Palpitations, Orthopnea, Paroxysmal Noc. Dyspnea, Lt Headedness Gastrointestinal: Denies: Nausea, Vomiting, Abdominal Pain, Diarrhea, Constipation Psych: Reports: Mood Normal, Depression (regarding hospitalization); Denies: Memory Issues Objective Physical Examination General Exam: Positive: Alert, No Acute Distress Eye Exam: Positive: Sclera icteric ENT Exam: Positive: Mucous membr. moist/pink Chest Exam: Positive: Clear to auscultation, Normal air movement; Negative: Rales, Rhonchi, Wheezing Heart Exam: Positive: Rate Normal, Regular Rhythm Abdomen Exam: Positive: Normal bowel sounds, Soft; Negative: Tenderness Extremity Exam: Positive: Normal pulses, Tenderness Skin Exam: Positive: Other skin issue Neuro Exam: Positive: Normal Speech Psych Exam: Positive: Mental status NL Assessment /Plan Problems (1) Abscess of right lower leg Status: Acute Problem Text: 08/19 repeat fluid collection R posterior distal thigh-plan repeat US drainage 08/20. 08/17 R posterior calf abscess drainage 08/14 R posterior thigh abscess drainage (2) Cellulitis of right lower extremity Status: Acute Problem Specific Plan: Consult Specialist Problem Text: D3 Nafcillin, (prior 10D Vanco/Zosyn) plan PICC placement for home abx 08/20 08/19 4.3, CRP 2 08/18 AF, WBC 5.3 (7.3), CRP 3 (5), ESR 135 (107) 08/17 WBC R posterior calf S. aureus 08/14 WCX R posterior thigh MSSA 08/13 - RLE DVT (3) PVD (peripheral vascular disease) Permanent Comment: Last Edited By: Leonard Quiroz MD on Aug 19, 2019 11:27 Status: Chronic Problem Text: 08/18 RLE arterial doppler: There is moderate atheromatous plaque throughout the right lower extremity. There are bi/triphasic wave forms. There is stenosis at the right SFA proximal. No stent is identified from the WRAPPER DIPPER to the ankle. Electronically Signed by Hoang De León MD 08/19/2019 08:09 A DD: Hoang De León MD 08/19/19801 DT: Chasity 08/19/19808 DS: RONIT 08/19/1980808/19/19808 [~ rep ct labl] (4) Hypertension Status: Chronic Problem Text: HD lisin 40 as per CKD (5) CKD stage G3a/A2, GFR 45-59 and albumin creatinine ratio 30-299 mg/g Status: Chronic Problem Text: 08/19 1.4, K 3.5 c SBP 140-160; therefore, HD lisin 40 to amlo 5 BID; check CK given fibrate/statin combo use 08/18 1.3 baseline cr 1.1-1.2 (6) Diabetes Status: Chronic Problem Text: HD glar U-300 120 QHS, empag 25, glybur 5 BID 08/18 AC TID low 200s; therefore, det to 70 08/13 AC TID low 200s on det 40 QHS; therefore, increased to 55 (7) Nicotine addiction Status: Chronic Response to Treatment: Stable (8) Anemia Status: Acute Response to Treatment: Progressing Discussed With: Patient Problem Specific Plan: Monitor Clinically, Repeat Labs Problem Text: favor ACD +/- acute loss + FA def (08/14 FA 3; therefore + 1 mg po QD); therefore, HO all stools-stop Lovenox if + 08/18 8.5 08/13 hgb 8.5 (08/06/19 12.1; 10/2018 16.4!) 08/06/19 Fe 47, TIBC 178, %sat 26.4, Ferritin 1451 (likely elevated d/t infection) anemia due chronic disease, will add OB, B12, Folate. (9) Physical deconditioning Status: Chronic Problem Text: Patient initially declined PT and was discharged from treatment. I advised he participated for further eval of home equipment and strength. PT consult ordered (10) Protein calorie malnutrition Status: Acute Problem Text: 08/19 alb 1.7-+ Ensure DM BID Plan/VTE VTE Prophylaxis Ordered?: Yes (Lovenox) Plan Therapy: PT Diagnostics: Repeat Labs in AM, Other Diagnostics (IR ) Anticipated Discharge: Home With Services VS, I&O, 24H, [place] Vital Signs/I&O Vital Signs Date Time Temp Pulse Resp B/P (MAP) Pulse Ox O2 Delivery O2 Flow Rate FiO2 08/20/19 06:00 96.8 81 18 167/79 (108) 99 Room Air 08/14/19 17:31 18.0 I&O- Last 24 Hours up to 6 AM 08/20/19 06:00 Intake Total 1400 ml Output Total 968 ml Balance 432 ml Laboratory Data 24H LABS Laboratory Tests 2 08/19/19 11:26: Bedside Glucose (Misc Panel) 270H 08/19/19 11:35: Total Creatine Kinase 29L 08/19/19 16:32: Bedside Glucose (Misc Panel) 191H 08/19/19 21:17: Bedside Glucose (Misc Panel) 261H 08/20/19 06:08: Immature Granulocyte % (Auto) 0.7, Neutrophils (%) (Auto) 62.7, Lymphocytes (%) (Auto) 27.3, Monocytes (%) (Auto) 6.5H, Eosinophils (%) (Auto) 1.6, Basophils (%) (Auto) 1.2H, Neutrophils # (Auto) 2.7, Lymphocytes # (Auto) 1.2L, Monocytes # (Auto) 0.3, Eosinophils # (Auto) 0.1, Basophils # (Auto) 0.1, Nucleated Red Blood Cells % (auto) 0.0, Anion Gap 6L, Glomerular Filtration Rate > 60.0, Calcium Level 8.0L, Total Bilirubin 0.4, Aspartate Amino Transf (AST/SGOT) 11, Alanine Aminotransferase (ALT/SGPT) 16, Alkaline Phosphatase 75, C-Reactive Protein, Quantitative 1.42H, Total Protein 6.2L, Albumin 1.9L, Albumin/Globulin Ratio 0.44L CBC/BMP Laboratory Tests 08/20/19 06:08 Microbiology Microbiology 08/19/19 Stool Occult Blood (ALMA) - Final, Complete 08/17/19 Gram Stain - Final, Complete 08/17/19 Abscess Culture - Final, Complete Staphylococcus Aureus 08/17/19 Anaerobic Culture - Final, Complete 08/14/19 Gram Stain - Final, Complete 08/14/19 Abscess Culture - Final, Complete Staphylococcus Aureus 08/14/19 Anaerobic Culture - Final, Complete Nancy Trevino Aug 20, 2019 09:40 ESTRELLA MILLER DO Aug 22, 2019 00:50
[2019-08-20] MEDS: ASPIRIN 81 MG ENTERIC TAB PO SCH (09:48)
[2019-08-20] MEDS: PARoxetine 20 MG TAB PO SCH (09:48)
[2019-08-20] MEDS: OMEPRAZOLE 20 MG CAP PO SCH (09:48)
[2019-08-20] MEDS: FOLIC ACID 1 MG TAB PO SCH (09:48)
[2019-08-20] MEDS: HumaLOG INSULIN (NovoLOG) PER UNIT SC SCH ×4 (09:48→21:41)
[2019-08-20] MEDS: amLODIPine 5 MG TAB PO SCH ×2 (09:48→21:40)
[2019-08-20] MEDS: SILVER SULFADIAZINE 1% CR 50 GM JAR TOP SCH (09:49)
[2019-08-20 14:00] VITALS: BP 154/81
--- NOTE | 2019-08-20 15:21 | IPNPDOC ---
Date Seen The patient was seen on 08/20/19. Progress Note SUBJECTIVE: Patient was interviewed and examined in his hospital room today. He reports significant improvement in his lower extremity pain s/p new right calf abscess drainage placement performed on 08/17. Pt states he had no acute events overnight. This morning he stated he felt nauseous and vomited a small amount but has not had any repeat incidents. Pt denies any fever, chest pain, shortness of breath, abdominal pain, diarrhea, constipation, hematuria. OBJECTIVE: Vitals: Please see below General: Pt interviewed and examined in his hospital room. Alert and oriented, in no acute distress. Heart: Regular rate and rhythm. +S1 and +S2, no murmurs, rubs, gallops appreciated. Lung: Clear to auscultation bilaterally, no wheezing, rales, or rhonchi. Extremity: Drain placed on right lateral calf. Right leg remains tender to palpation but erythema and edema have improved. 1+ edema on the right leg. 2+ peripheral pulses b/l. Psych: Mood and affect are appropriate given patient's current medical condition. ASSESSMENT: 59 year old male, past medical history significant for insulin-depen dent diabetes mellitus type 2 and hypertension with R LE cellulitis and MSSA abscess. He failed outpatient Abx therapy, admitted to the hospital for IV abx therapy. S/P I&D 08/14 and on 08/17. New drain has been working well- 80 mL drained today. PLAN: 1. Right leg cellulitis with abscess: S/p drainage 08/14. Cultures from 08/14 taken from the abscess grew Staphylococcus Aureus that was resistant to Erythromycin and Penicillin G. S/p drainage of right calf on 08/17. Continue Nafcillin 2 gm Q6hr for MSSA coverage. DISPOSITION: Pt will have PICC line placed today to continue at home IV antibiot ics. GME ATTESTATION My faculty preceptor for this patient encounter was physically present during the encounter and was fully available. All aspects of the patient interview, examination, medical decision making process, and medical care plan development were reviewed and approved by the faculty preceptor. The faculty preceptor is aware and concurs with the plan as stated in the body of this note and will attest to such by his/her cosignature. VS, I&O, 24H, Fishbone Vital Signs/I&O Vital Signs Date Time Temp Pulse Resp B/P (MAP) Pulse Ox O2 Delivery O2 Flow Rate FiO2 08/20/19 14:00 98.7 89 20 154/81 (105) 96 Room Air 08/14/19 17:31 18.0 I&O- Last 24 Hours up to 6 AM 08/20/19 05:59 Intake Total 1250 ml Output Total 778 ml Balance 472 ml Laboratory Data 24H LABS Laboratory Tests 2 08/19/19 16:32: Bedside Glucose (Misc Panel) 191H 08/19/19 21:17: Bedside Glucose (Misc Panel) 261H 08/20/19 06:08: Immature Granulocyte % (Auto) 0.7, Neutrophils (%) (Auto) 62.7, Lymphocytes (%) (Auto) 27.3, Monocytes (%) (Auto) 6.5H, Eosinophils (%) (Auto) 1.6, Basophils (%) (Auto) 1.2H, Neutrophils # (Auto) 2.7, Lymphocytes # (Auto) 1.2L, Monocytes # (Auto) 0.3, Eosinophils # (Auto) 0.1, Basophils # (Auto) 0.1, Nucleated Red Blood Cells % (auto) 0.0, Anion Gap 6L, Glomerular Filtration Rate > 60.0, Calcium Level 8.0L, Total Bilirubin 0.4, Aspartate Amino Transf (AST/SGOT) 11, Alanine Aminotransferase (ALT/SGPT) 16, Alkaline Phosphatase 75, C-Reactive Protein, Quantitative 1.42H, Total Protein 6.2L, Albumin 1.9L, Albumin/Globulin Ratio 0.44L 08/20/19 11:31: Bedside Glucose (Misc Panel) 142H CBC/BMP Laboratory Tests 08/20/19 06:08 Microbiology Microbiology 08/19/19 Stool Occult Blood (ALMA) - Final, Complete 08/17/19 Gram Stain - Final, Complete 08/17/19 Abscess Culture - Final, Complete Staphylococcus Aureus 08/17/19 Anaerobic Culture - Final, Complete 08/14/19 Gram Stain - Final, Complete 08/14/19 Abscess Culture - Final, Complete Staphylococcus Aureus 08/14/19 Anaerobic Culture - Final, Complete ONGKINGCO,PATT OMS-IV Aug 20, 2019 15:21
[2019-08-20] MEDS: PERCOCET 5MG/325MG TAB PO PRN (16:10)
--- NOTE | 2019-08-20 19:51 | REPVR ---
PROCEDURE INFORMATION: Exam: US Right Non-Vascular Joint or Other Extremity Structure, Limited Lower Extremity Exam date and time: 08/20/2019 7:04 PM Age: 59 years old Clinical indication: Condition or disease; Abscess; Lower leg and calf; Right; Prior surgery; Surgery date: 3-7 days post-operative; Surgery type: Drain placement; Additional info: Leg pain, abcess resolution TECHNIQUE: Imaging protocol: Right US Non-Vascular Joint or Other Extremity Structure. Limited exam of the lower extremity. COMPARISON: US UNI LOW EXTREM ARTERIAL LIMIT 08/18/2019 4:20 PM FINDINGS: Soft tissues: Subcutaneous edema demonstrated in the posterior thigh and calf. Surgical drain demonstrated within a complex fluid collection measuring 13.9 x 0.6 x 2.7 cm. Bones/joints: Unremarkable. IMPRESSION: Surgical drain demonstrated within a complex fluid collection measuring 13.9 x 0.6 x 2.7 cm. Electronically signed by: Darell Monsalve On 08/20/2019 19:50:36 PM
[2019-08-20] MEDS: ATORVASTATIN 20 MG TAB PO SCH (21:39)
[2019-08-20] MEDS: FENOFIBRATE 145 MG TAB (TRICOR) PO SCH (21:39)
[2019-08-20] MEDS: LEVEMIR (INSULIN DETEMIR) 1 UNITS/0.01ML SC SCH (21:40)
[2019-08-20 22:00] VITALS: BP 157/72
[2019-08-21] MEDS: NAFCILLIN SOD 2 GM in D5W MINI-BAG PLUS 50 ML IV SCH ×4 (03:49→21:17)
[2019-08-21] MEDS: PERCOCET 5MG/325MG TAB PO PRN ×2 (03:50→17:13)
[2019-08-21 06:00] VITALS: BP 159/89
[2019-08-21 06:40] LABS: BASO % 0.4 % (0.0-1.0); EOS # 0.1 10^3/uL (0.0-0.5); EOS % 2.1 % (0.0-3.0); HEMATOCRIT 28.2 % (42.0-52.0); HEMOGLOBIN 8.6 g/dl (13.5-17.5); LYMPH # 1.3 10^3/uL (1.5-5.0); LYMPH % 26.8 % (24.0-44.0); MEAN CORPUSCULAR HEMOGLOBIN 27.7 pg (27.0-33.0); MEAN CORPUSCULAR HGB CONC 30.5 g/dl (32.0-36.5); MONO # 0.3 10^3/uL (0.0-0.8); MONO % 6.4 % (0.0-5.0); NEUTROPHILS # 3.1 10^3/uL (1.5-8.5); NEUTROPHILS % 63.7 % (36.0-66.0); PLATELET COUNT, AUTOMATED 282 10^3/uL (150-450); WHITE BLOOD COUNT 4.8 10^3/uL (4.0-10.0)
[2019-08-21 07:05] LABS: BILIRUBIN,TOTAL 0.3 MG/DL (0.2-1.0); C REACTIVE PROTEIN QUANTITATIV 1.33 MG/DL (0.00-0.30); CREATININE FOR GFR 1.37 MG/DL (0.70-1.30); GLOMERULAR FILTRATION RATE 56.8 (>56); POTASSIUM SERUM 3.5 MEQ/L (3.5-5.1)
[2019-08-21] MEDS: OMEPRAZOLE 20 MG CAP PO SCH (09:28)
[2019-08-21] MEDS: amLODIPine 5 MG TAB PO SCH ×2 (09:28→21:18)
[2019-08-21] MEDS: ASPIRIN 81 MG ENTERIC TAB PO SCH (09:28)
[2019-08-21] MEDS: PARoxetine 20 MG TAB PO SCH (09:28)
[2019-08-21] MEDS: ENOXAPARIN 40 MG/0.4 ML SYRINGE (J1650) SC SCH (09:28)
[2019-08-21] MEDS: FOLIC ACID 1 MG TAB PO SCH (09:28)
[2019-08-21] MEDS: HumaLOG INSULIN (NovoLOG) PER UNIT SC SCH ×4 (09:29→20:36)
[2019-08-21] MEDS: SILVER SULFADIAZINE 1% CR 50 GM JAR TOP SCH (09:29)
--- NOTE | 2019-08-21 10:07 | IPNPDOC ---
Subjective Date Seen The patient was seen on 08/21/19. Subjective Chief Complaint/HPI cellulitis, abscess Events since last encounter feeling well. remains afebrile. got OOB yesterday. PT eval remains pending. Constitutional: Denies: Chills, Fever, Night Sweats Pulmonary: Denies: Dyspnea, Cough Cardiovascular: Denies: Chest Pain, Palpitations, Orthopnea, Paroxysmal Noc. Dyspnea, Lt Headedness Gastrointestinal: Denies: Nausea, Vomiting, Abdominal Pain, Diarrhea, Constipation Genitourinary: Denies: Dysuria, Frequency, Incontinence, Retention Objective Physical Examination General Exam: Positive: Alert, No Acute Distress Eye Exam: Positive: Sclera icteric ENT Exam: Positive: Mucous membr. moist/pink Chest Exam: Positive: Clear to auscultation, Normal air movement; Negative: Rales, Rhonchi, Wheezing Heart Exam: Positive: Rate Normal, Regular Rhythm Abdomen Exam: Positive: Normal bowel sounds, Soft; Negative: Tenderness Extremity Exam: Positive: Normal pulses, Tenderness Skin Exam: Positive: Other skin issue (erythema to posterior portion of right leg with fluid collection. ) Neuro Exam: Positive: Normal Speech Psych Exam: Positive: Mental status NL Assessment /Plan Assessment Agree with note below. Drain has been left out of abscess, nothing more currently drainable. Feeling better, ambulating with walker. -- CDT Problems (1) Abscess of right lower leg Status: Acute Problem Text: Abscess draining from catheter. Flushing well. PFS working on Dalvance treatment as advised by ID. Anticipate DC home 08/22/19 US completed yesterday: [facility] NAME: VELMA PHILLIPS DEWEY DATE OF : 1960 BUSINESS NUMBER: [id number] AGE: 59 SEX: M REPORT #: [id number] ROOM: [facility] TECHNOLOGIST: MARIZA DOCTOR: ESTRELLA BERNABE DO Ordered for Date&Time: 08/20/191810 cc: [~ rep ct ivnm] Service Date&Time: 08/20/19 190 This report is in Signed status. Interpretation performed by [facility]. Thank you for having your radiology procedures performed at [facility] RADIOLOGY REPORT Date&Time printed: [~ rep prt dt last] [~ rep prt tm last] Page 2 of 2 [place] [address] RADIOLOGY REPORT This report is in Signed status. Interpretation performed by [facility]. Thank you for having your radiology procedures performed at [facility] RADIOLOGY REPORT Date&Time printed: [~ rep prt dt last] [~ rep prt tm last] Page 1 of 1 FINDINGS: Soft tissues: Subcutaneous edema demonstrated in the posterior thigh and calf. Surgical drain demonstrated within a complex fluid collection measuring 13.9 x 0.6 x 2.7 cm. Bones/joints: Unremarkable. IMPRESSION: Surgical drain demonstrated within a complex fluid collection measuring 13.9 x 0.6 x 2.7 cm. Electronically signed by: Darell Mock On 08/20/2019 19:50:36 PM DD: DARELL MOCK MD 08/20/191903 DT: GLENIS 08/20/191949 DS: NEVA 08/20/191949 [~ rep ct labl] (2) Cellulitis of right lower extremity Status: Acute Problem Specific Plan: Consult Specialist Problem Text: D3 Nafcillin, (prior 10D Vanco/Zosyn) plan PICC placement for home abx 2/3 2 4.3, CRP 2 08/18 AF, WBC 5.3 (7.3), CRP 3 (5), ESR 135 (107) 08/17 WBC R posterior calf S. aureus 08/14 WCX R posterior thigh MSSA 08/13 - RLE DVT (3) PVD (peripheral vascular disease) Permanent Comment: Last Edited By: Leonard Quiroz MD on Aug 19, 2019 11:27 Status: Chronic Problem Text: 08/18 RLE arterial doppler: There is moderate atheromatous plaque throughout the right lower extremity. There are bi/triphasic wave forms. There is stenosis at the right SFA proximal. No stent is identified from the ELECTROFORMER to the ankle. Electronically Signed by Hoang De León MD 08/19/2019 08:09 A DD: Hoang De León MD 08/19/19801 DT: Chasity 08/19/19808 DS: RONIT 08/19/19 0808/19/19808 [~ rep ct labl] (4) Hypertension Status: Chronic Problem Text: HD lisin 40 as per CKD (5) CKD stage G3a/A2, GFR 45-59 and albumin creatinine ratio 30-299 mg/g Status: Chronic Problem Text: 08/19 1.4, K 3.5 c SBP 140-160; therefore, HD lisin 40 to amlo 5 BID; check CK given fibrate/statin combo use 08/18 1.3 baseline cr 1.1-1.2 (6) Diabetes Status: Chronic Problem Text: HD glar U-300 120 QHS, empag 25, glybur 5 BID 08/18 AC TID low 200s; therefore, det to 70 08/13 AC TID low 200s on det 40 QHS; therefore, increased to 55 (7) Nicotine addiction Status: Chronic Response to Treatment: Stable (8) Anemia Status: Acute Response to Treatment: Progressing Discussed With: Patient Problem Specific Plan: Monitor Clinically, Repeat Labs Problem Text: favor ACD +/- acute loss + FA def (08/14 FA 3; therefore + 1 mg po QD); therefore, HO all stools-stop Lovenox if + 08/18 8.5 08/13 hgb 8.5 (08/06/19 12.1; 10/2018 16.4!) 08/06/19 Fe 47, TIBC 178, %sat 26.4, Ferritin 1451 (likely elevated d/t infection) anemia due chronic disease, will add OB, B12, Folate. (9) Physical deconditioning Status: Chronic Problem Text: Patient initially declined PT and was discharged from treatment. I advised he participated for further eval of home equipment and strength. PT consult ordered (10) Protein calorie malnutrition Status: Acute Problem Text: 08/19 alb 1.7-+ Ensure DM BID Plan/VTE VTE Prophylaxis Ordered?: Yes (Lovenox) Plan Therapy: PT Diagnostics: Repeat Labs in AM, Other Diagnostics (IR ) Anticipated Discharge: Home With Services VS, I&O, 24H, [facility] Vital Signs/I&O Vital Signs Date Time Temp Pulse Resp B/P (MAP) Pulse Ox O2 Delivery O2 Flow Rate FiO2 08/21/19 09:28 159/89 08/21/19 06:00 97.0 79 20 100 08/20/19 16:40 Room Air I&O- Last 24 Hours up to 6 AM 08/21/19 06:00 Intake Total 1600 ml Output Total 1830 ml Balance -230 ml Laboratory Data 24H LABS Laboratory Tests 2 08/20/19 11:31: Bedside Glucose (Misc Panel) 142H 08/20/19 16:36: Bedside Glucose (Misc Panel) 140H 08/20/19 20:43: Bedside Glucose (Misc Panel) 299H 08/21/19 06:12: Immature Granulocyte % (Auto) 0.6, Neutrophils (%) (Auto) 63.7, Lymphocytes (%) (Auto) 26.8, Monocytes (%) (Auto) 6.4H, Eosinophils (%) (Auto) 2.1, Basophils (%) (Auto) 0.4, Neutrophils # (Auto) 3.1, Lymphocytes # (Auto) 1.3L, Monocytes # (Auto) 0.3, Eosinophils # (Auto) 0.1, Basophils # (Auto) 0.0, Nucleated Red Blood Cells % (auto) 0.0, Anion Gap 2L, Glomerular Filtration Rate 56.8, Calcium Level 8.0L, Total Bilirubin 0.3, Aspartate Amino Transf (AST/SGOT) 12, Alanine Aminotransferase (ALT/SGPT) 10L, Alkaline Phosphatase 72, C-Reactive Protein, Quantitative 1.33H, Total Protein 6.0L, Albumin 2.0L, Albumin/Globulin Ratio 0.50L CBC/BMP Laboratory Tests 08/21/19 06:12 Microbiology Microbiology 08/19/19 Stool Occult Blood (ALMA) - Final, Complete 08/17/19 Gram Stain - Final, Complete 08/17/19 Abscess Culture - Final, Complete Staphylococcus Aureus 08/17/19 Anaerobic Culture - Final, Complete 08/14/19 Gram Stain - Final, Complete 08/14/19 Abscess Culture - Final, Complete Staphylococcus Aureus 08/14/19 Anaerobic Culture - Final, Complete Nancy TrevinoP Aug 21, 2019 10:07 ESTRELLA MILLER DO Aug 22, 2019 02:27
[2019-08-21 14:00] VITALS: BP 142/75
[2019-08-21] MEDS ORDERED: LIDOCAINE 1% MDV 20ML VIAL As Ordered ONE (14:31)
[2019-08-21] MEDS ORDERED: ISOVUE-300 61% 50ML VIAL (Q9967) As Ordered ONE (14:33)
--- NOTE | 2019-08-21 17:26 | IPN ---
DATE: 08/21/2019 To is doing well. He complains of pain in his popliteal fossa, but he thinks it is related to the Tegaderm that keeps being pulled off. His drain was dislocated yesterday, and he had a followup ultrasound, which showed persistent collection. The patient states his pain has improved. On ultrasound done on August 20, it shows a complex fluid collection measuring 13.9 x 0.6 x 2.7 cm extending from the posterior thigh and down to the calf. PHYSICAL EXAMINATION: Temperature is 98.1, pulse 98, respirations 16, blood pressure 159/89, oxygen saturation 99% on room air. Heart: Normal S1, S2. No murmurs. Lungs are clear. No wheezes, rales, or rhonchi. Abdomen: Soft, nontender. No hepatosplenomegaly. Extremities: Right leg has +1 pitting edema. Left leg has no edema. He has induration and erythema from the mid thigh down to the calf, especially around the popliteal fossa. The drain is out, and there is some serosanguineous discharge on the dressing. His range of motion of the knee is 170 degrees. Some limited extension is still due to the edema. LABORATORY DATA: White count is 4.8, down from admission of 15.7, hemoglobin 8.6, hematocrit 28.2, platelets 282, 63% neutrophils, 26% lymphocytes. Sodium 139, potassium 3.5, chloride 105, bicarbonate 32, BUN 22, creatinine 1.37, glucose 226, calcium 8. AST 12, ALT 10, alkaline phosphatase 72. CRP 1.33, down from 24.8. Wound cultures were positive for Staphylococcus aureus, methicillin-sensitive Staphylococcus aureus (MSSA) on July and August 17. IMPRESSION: 1. Complicated multiloculated Staphylococcus aureus abscess of the mid thigh to the calf, status post two drainage procedures. The drains have fallen both in the hospital. I did discuss the case at length with Dr. Eastman, who does not feel the patient could go home at the drain that will not dislodge, as is a very hard to maintain it. The patient is also stating that Tegaderm rips his skin and is making the pain worse. The last drain only had serosanguineous discharge and not really purulent discharge, so I not sure that it even was of any benefit. 2. Insulin-dependent diabetes. Sugars have been fairly controlled, ranging between 140-299. PLAN: Discontinue drainage catheter. The patient will be followed up as an outpatient with intravenous (IV) Dalvance, that will be 1.5 grams given on the day after discharge, and another dose will be repeated 7 days later. I would rather not give him any home IV antibiotic with a peripherally inserted central catheter (PICC) line and risk of complication from PICC. He has been on antibiotics for 2 weeks. I will see him in my office in 7-10 days to decide whether he needs any surgical intervention or further drainage. Please obtain followup labs as an outpatient, including complete blood count (CBC) basic, C-reactive protein (CRP), erythrocyte sedimentation rate (ESR) weekly. Followup at Dr. Moran's office in 7-10 days. ANA
--- NOTE | 2019-08-21 17:30 | REP ---
Soft-tissue ultrasound right lateral thigh and leg. History: Right leg abscess. Findings: There is an apparent complex fluid collection again seen along the right lateral thigh extending down to the proximal calf. I feel this is difficult to differentiate from inflamed subcutaneous and na-fascial tissue. There is some air present within the apparent collection near the site of the previous drainage catheter. The area involved is longitudinally extensive, covering an estimated 33 cm in craniocaudal span by 1.2 cm in greatest depth by 5.1 cm in greatest width. These measurements are significantly different than previous imaging. I am not certain that an ultrasound is the best way to evaluate and measure the extent of this apparent collection. Consider contrast enhanced CT scanning of the leg if further imaging is warranted. Electronically Signed by To Eastman MD 08/21/2019 07:40 P
--- NOTE | 2019-08-21 19:52 | REP ---
RIGHT CALF ABSCESSOGRAM WITH POSSIBLE CATHETER EXCHANGE The procedure was performed under the personal supervision of Dr. Eastman. The risks and benefits of the procedure were explained to the patient and informed consent was obtained. The patient had a 8-Niuean in the Skater APDL inserted into the right calf abscess on 08/17/2019. The patient is referred today for check of catheter placement. The catheter and insertion site were prepped and draped in a sterile fashion. An abscessogram was attempted however the catheter side-holes had pulled out of the skin and the loop of the pigtail was stressed under the skin. The catheter was removed and a 5-Niuean dilator was inserted. Multiple attempts at an abscessogram were tried however we were unable to see the abscess cavity. After discussion with Dr. Moran It was decided that a new catheter did not need to be placed at this time. The patient tolerated the procedure well and there were no immediate complications. In the 3.2 minutes of fluoroscopy time was utilized for this procedure. Electronically Signed by UDAY Goldman 08/21/2019 04:21 P Electronically Signed by To Eastman MD 08/21/2019 07:42 P
[2019-08-21] MEDS: FENOFIBRATE 145 MG TAB (TRICOR) PO SCH (21:17)
[2019-08-21] MEDS: ATORVASTATIN 20 MG TAB PO SCH (21:18)
[2019-08-21] MEDS: LEVEMIR (INSULIN DETEMIR) 1 UNITS/0.01ML SC SCH (21:19)
[2019-08-21 22:00] VITALS: BP 149/70
[2019-08-22] MEDS: NAFCILLIN SOD 2 GM in D5W MINI-BAG PLUS 50 ML IV SCH ×2 (04:13→10:38)
[2019-08-22 06:00] VITALS: BP 150/71
[2019-08-22 07:13] LABS: BASO % 0.9 % (0.0-1.0); EOS # 0.1 10^3/uL (0.0-0.5); EOS % 2.7 % (0.0-3.0); HEMATOCRIT 27.8 % (42.0-52.0); HEMOGLOBIN 8.8 g/dl (13.5-17.5); LYMPH % 23.4 % (24.0-44.0); MEAN CORPUSCULAR HEMOGLOBIN 28.4 pg (27.0-33.0); MEAN CORPUSCULAR HGB CONC 31.7 g/dl (32.0-36.5); MEAN CORPUSCULAR VOLUME 89.7 fl (80.0-96.0); MONO # 0.3 10^3/uL (0.0-0.8); MONO % 6.3 % (0.0-5.0); NEUTROPHILS # 2.9 10^3/uL (1.5-8.5); PLATELET COUNT, AUTOMATED 316 10^3/uL (150-450); WHITE BLOOD COUNT 4.4 10^3/uL (4.0-10.0)
[2019-08-22 07:47] LABS: ALT/SGPT 10 U/L (12-78); BLOOD UREA NITROGEN 20 MG/DL (7-18); CALCIUM LEVEL 8.3 MG/DL (8.5-10.1); CARBON DIOXIDE LEVEL 30 MEQ/L (21-32); CHLORIDE LEVEL 107 MEQ/L (98-107); CREATININE FOR GFR 1.19 MG/DL (0.70-1.30); GLOMERULAR FILTRATION RATE > 60.0 (>56); GLUCOSE, FASTING 166 MG/DL (70-100); POTASSIUM SERUM 3.2 MEQ/L (3.5-5.1); SODIUM LEVEL 143 MEQ/L (136-145)
[2019-08-22 07:48] LABS: BILIRUBIN,TOTAL 0.5 MG/DL (0.2-1.0); TOTAL PROTEIN 6.1 GM/DL (6.4-8.2)
[2019-08-22] MEDS: HumaLOG INSULIN (NovoLOG) PER UNIT SC SCH ×2 (08:21→12:00)
[2019-08-22] MEDS: ENOXAPARIN 40 MG/0.4 ML SYRINGE (J1650) SC SCH (08:22)
[2019-08-22] MEDS: ASPIRIN 81 MG ENTERIC TAB PO SCH (08:22)
[2019-08-22] MEDS: PARoxetine 20 MG TAB PO SCH (08:22)
[2019-08-22] MEDS: OMEPRAZOLE 20 MG CAP PO SCH (08:22)
[2019-08-22] MEDS: FOLIC ACID 1 MG TAB PO SCH (08:22)
[2019-08-22 08:24] VITALS: BP 153/72
[2019-08-22] MEDS: amLODIPine 5 MG TAB PO SCH (08:24)
[2019-08-22] MEDS: SILVER SULFADIAZINE 1% CR 50 GM JAR TOP SCH (09:00)
[2019-08-22] MEDS ORDERED: AMLO5TAB6 PO (10:45)
--- NOTE | 2019-08-22 11:29 | DSES ---
DATE OF ADMISSION: 08/06/2019 DATE OF DISCHARGE: 08/22/2019 CONSULTANTS: Dr. Ernie Moran - Infectious disease. Dr. Jayme Orellana - General surgery. Interventional radiology. PCP: Dr. Ry Mcbride. HISTORY OF PRESENT ILLNESS: Mr. Bradshaw is a 59-year-old gentleman who presented to [facility] emergency department (ED) with complaint of progressively worsening right lower extremity pain and swelling. The patient had a prior history of an injury following while playing his grandson 2 weeks prior. He developed some swelling and some pain. Had presented to urgent care with no resolution of his symptoms. He presented to [facility] ED on 07/29/2019. At that time, he had an ultrasound of his right lower extremity, which was negative for deep venous thrombosis (DVT). He was sent home. Patient then went to another urgent care and was given a 10-day course of clindamycin, which did not improve his symptoms. He presented to the ED on 08/06/2019, was found to have significant leukocytosis with a white blood cell count of 15,000 and was subsequently admitted to the hospital by the hospitalist service for sepsis and right lower extremity pain and swelling with cellulitis. HOSPITAL COURSE: Patient is status post extensive imaging including an MRI of the right lower extremity. Patient was found to have cellulitis, myositis and fasciitis with abscess formation along the lateral superficial aspect of the hamstring musculature. Patient is status post infectious disease consult and he was placed on vancomycin IV. Patient is status post catheterized drainage of abscess with cultures returning positive for methicillin sensitive Staphylococcus aureus (MSSA). Patient was subsequently transitioned to nafcillin after his cultures returned. He tolerated that well throughout hospitalization. Patient's labs have continued to improve. Sed rate has continued to come down along with CRP. White count has remained stable for several days and patient has remained afebrile throughout his hospitalization. Patient did have some episode of hypertension. Amlodipine 5 mg by mouth twice a day was added on to his regimen with improvement. Blood sugars were maintained with regular insulin sliding scale throughout hospitalization. IMAGING: Patient has had multiple ultrasound of his extremities to follow abscess formation fluoroscopy guided procedures for his abscess. He did have an arterial study completed of his right lower extremity and this did prove positive for moderate atheromatous plaque throughout the right lower extremity. He does have stenosis at the right superficial artery (SFA) proximal. MRI of the extremity completed as already stated. CT of the pelvis, femur and knee x-ray were also completed with no abnormal findings. PHYSICAL EXAMINATION: Vital signs are stable. He is afebrile. HEENT: Neck is supple without lymphadenopathy or jugular venous distention (JVD). Cardiovascular: Heart regular rhythm and regular. Pulmonary: Lungs are clear. Abdomen is soft and nontender. Right lower extremity just shows some slothing with decreased erythema. Minimal pain. Positive pedal pulses bilaterally. ASSESSMENT: 1. Methicillin sensitive Staphylococcus aureus (MSSA) abscess to the right lower extremity. 2. Peripheral artery disease with occlusion. 3. Hypertension. 4. Insulin dependent diabetes. 5. Peripheral vascular disease. 6. Chronic kidney disease stage III. 7. Chronic anemia. PLAN: Patient will be discharge to home with home health services. He will receive one dose of Dalvance tomorrow and then another one in 7 days. This has been arranged with infectious disease and patient family services. Patient will followup with PCP within the next 5-7 days. He will followup with infectious disease within the next 1-2 weeks. MEDICATIONS ARE FOLLOW: - amlodipine 5 mg by mouth twice a day for the next 30 days - aspirin 81 mg one by mouth daily - atorvastatin 40 mg by mouth nightly - Jardiance 25 mg by mouth daily - vitamin D2 50,000 international units weekly - fenofibrate 160 mg, one by mouth daily - glyburide 5 mg by mouth twice a day - hydrocodone with acetaminophen one tablet by mouth three times a day as needed pain - ibuprofen 100 mg by mouth three times a day as needed pain - Toujeo SoloStar 120 units subcu nightly - lisinopril 40 mg by mouth daily - omeprazole 20 mg by mouth daily - paroxetine 20 mg by mouth daily Patient is discharged in stable and satisfactory condition with no further questions at the time of discharge. Approximately 30 minutes was spent planning and coordinating patient's discharge.
== END 2019-08-22 14:46 | disposition home or self-care (01) | DRG 344 ==
LOC: M ED 08:32 → M ED INP 11:16 → EEVIPCON 11:16 → ENRESERVTM 13:17 → ENRESERVDT 13:17 → M MSPAV 14:21
PROVIDERS: ADMIT Internal Medicine; ATTEND Family Medicine
PROC: 0Y9C30Z Drainage of Right Upper Leg with Drainage Device, Percutaneous Approach (ICD-10-PCS; principal; 2019-08-14 15:00)
PROC: 0Y9 Anatomical Regions, Lower Extremities, Drainage (ICD-10-PCS; 2019-08-17)
PROC: 0Y9 Anatomical Regions, Lower Extremities, Drainage (ICD-10-PCS; 2019-08-17)
DX: M60.061 Infective myositis, right lower leg (principal); E11.51 Type 2 diabetes mellitus with diabetic peripheral angiopathy without gangrene; E46 Unspecified protein-calorie malnutrition; L03.115 Cellulitis of right lower limb; E87.5 Hyperkalemia; N18.3 Chronic kidney disease, stage 3 (moderate); D64.9 Anemia, unspecified; I12.9 Hypertensive chronic kidney disease with stage 1 through stage 4 chronic kidney disease, or unspecified chronic kidney disease; B95.61 Methicillin susceptible Staphylococcus aureus infection as the cause of diseases classified elsewhere; Z79.82 Long term (current) use of aspirin; Z79.899 Other long term (current) drug therapy; E78.5 Hyperlipidemia, unspecified; K21.9 Gastro-esophageal reflux disease without esophagitis; Z88.8 Allergy status to other drugs, medicaments and biological substances; F17.210 Nicotine dependence, cigarettes, uncomplicated; M72.8 Other fibroblastic disorders

== ENCOUNTER → 2019-08-28 | Outpatient (REF) | payer BC ==
[~2019-08-28] MED LIST changes: +AMLO5TAB6 PO; +CLIN300C5 PO; +HYDR-2808 PO; +IBUP1TAB7 PO; +JARD1TAB3 PO
[2019-08-28 12:46] LABS: BASO % 0.8 % (0.0-1.0); EOS % 1.4 % (0.0-3.0); HEMATOCRIT 30.2 % (42.0-52.0); HEMOGLOBIN 9.3 g/dl (13.5-17.5); LYMPH # 1.3 10^3/uL (1.5-5.0); LYMPH % 20.5 % (24.0-44.0); MEAN CORPUSCULAR HEMOGLOBIN 28.3 pg (27.0-33.0); MEAN CORPUSCULAR HGB CONC 30.8 g/dl (32.0-36.5); MEAN CORPUSCULAR VOLUME 91.8 fl (80.0-96.0); MONO % 5.8 % (0.0-5.0); NEUTROPHILS # 4.5 10^3/uL (1.5-8.5); PLATELET COUNT, AUTOMATED 337 10^3/uL (150-450); RED BLOOD COUNT 3.29 10^6/uL (4.30-6.10); WHITE BLOOD COUNT 6.3 10^3/uL (4.0-10.0)
[2019-08-28 12:47] LABS: BASO # 0.1 10^3/uL (0.0-0.2); EOS # 0.1 10^3/uL (0.0-0.5); MONO # 0.4 10^3/uL (0.0-0.8)
[2019-08-28 12:59] LABS: BLOOD UREA NITROGEN 17 MG/DL (7-18); C REACTIVE PROTEIN QUANTITATIV 2.62 MG/DL (0.00-0.30); CALCIUM LEVEL 8.9 MG/DL (8.5-10.1); CARBON DIOXIDE LEVEL 29 MEQ/L (21-32); CHLORIDE LEVEL 107 MEQ/L (98-107); CREATININE FOR GFR 1.28 MG/DL (0.70-1.30); GLOMERULAR FILTRATION RATE > 60.0 (>56); GLUCOSE, FASTING 91 MG/DL (70-100); POTASSIUM SERUM 3.4 MEQ/L (3.5-5.1); SODIUM LEVEL 142 MEQ/L (136-145)
[2019-08-28 13:25] LABS: ERYTHROCYTE SEDIMENTATION RATE 126 mm/hr (0-20)
[2019-08-29 16:12] LABS: ALBUMIN 2.8 GM/DL (3.2-5.2); ALT/SGPT 14 U/L (12-78); BILIRUBIN,TOTAL 0.4 MG/DL (0.2-1.0); TOTAL PROTEIN 6.7 GM/DL (6.4-8.2)
== END ==
LOC: M SFHCPLAZ 10:44
PROVIDERS: ATTEND Internal Medicine Infectious Disease
DX: A49.01 Methicillin susceptible Staphylococcus aureus infection, unspecified site (principal)

== ENCOUNTER → 2019-10-01 | Outpatient (REF) | payer BC ==
[2019-10-01 13:23] LABS: BASO % 0.8 % (0.0-1.0); EOS # 0.1 10^3/uL (0.0-0.5); EOS % 2.1 % (0.0-3.0); HEMATOCRIT 35.8 % (42.0-52.0); HEMOGLOBIN 11.7 g/dl (13.5-17.5); LYMPH # 1.3 10^3/uL (1.5-5.0); LYMPH % 26.2 % (24.0-44.0); MEAN CORPUSCULAR HEMOGLOBIN 27.9 pg (27.0-33.0); MEAN CORPUSCULAR HGB CONC 32.7 g/dl (32.0-36.5); MEAN CORPUSCULAR VOLUME 85.2 fl (80.0-96.0); MONO # 0.3 10^3/uL (0.0-0.8); MONO % 6.6 % (0.0-5.0); NEUTROPHILS # 3.1 10^3/uL (1.5-8.5); NEUTROPHILS % 63.7 % (36.0-66.0); PLATELET COUNT, AUTOMATED 206 10^3/uL (150-450); WHITE BLOOD COUNT 4.8 10^3/uL (4.0-10.0)
[2019-10-01 13:25] LABS: BLOOD UREA NITROGEN 29 MG/DL (7-18); C REACTIVE PROTEIN QUANTITATIV 0.31 MG/DL (0.00-0.30); CALCIUM LEVEL 9.3 MG/DL (8.5-10.1); CARBON DIOXIDE LEVEL 27 MEQ/L (21-32); CHLORIDE LEVEL 106 MEQ/L (98-107); CREATININE FOR GFR 1.22 MG/DL (0.70-1.30); GLOMERULAR FILTRATION RATE > 60.0 (>56); GLUCOSE, FASTING 293 MG/DL (70-100); POTASSIUM SERUM 4.2 MEQ/L (3.5-5.1); SODIUM LEVEL 138 MEQ/L (136-145)
[2019-10-01 14:02] LABS: ERYTHROCYTE SEDIMENTATION RATE 54 mm/hr (0-20)
== END ==
LOC: M LABDRAW1 10:57
PROVIDERS: ATTEND Internal Medicine Infectious Disease
DX: A49.01 Methicillin susceptible Staphylococcus aureus infection, unspecified site (principal)

== ENCOUNTER 2019-11-18 10:43 | Emergency (ER) | payer BC ==
[~2019-11-18] VITALS: Ht 185.4 cm; Wt 105.2 kg
[~2019-11-18 10:43] MED LIST changes: +CYCL-707 PO; -CYCL10TA PO
[2019-11-18 12:17] LABS: BASO % 0.4 % (0.0-1.0); EOS # 0.1 10^3/uL (0.0-0.5); EOS % 0.8 % (0.0-3.0); HEMATOCRIT 37.6 % (42.0-52.0); HEMOGLOBIN 12.2 g/dl (13.5-17.5); LYMPH # 1.2 10^3/uL (1.5-5.0); LYMPH % 16.8 % (24.0-44.0); MEAN CORPUSCULAR HEMOGLOBIN 27.5 pg (27.0-33.0); MEAN CORPUSCULAR HGB CONC 32.4 g/dl (32.0-36.5); MEAN CORPUSCULAR VOLUME 84.7 fl (80.0-96.0); MONO # 0.5 10^3/uL (0.0-0.8); MONO % 6.6 % (0.0-5.0); NEUTROPHILS # 5.5 10^3/uL (1.5-8.5); NEUTROPHILS % 74.9 % (36.0-66.0); PLATELET COUNT, AUTOMATED 228 10^3/uL (150-450); RED BLOOD COUNT 4.44 10^6/uL (4.30-6.10); WHITE BLOOD COUNT 7.4 10^3/uL (4.0-10.0)
[2019-11-18 12:40] LABS: ERYTHROCYTE SEDIMENTATION RATE 66 mm/hr (0-20)
--- NOTE | 2019-11-18 12:55 | REP ---
Clinical: Open wound/ulcer. Technique: AP and lateral views of the left foot. Findings: Moderate degenerative changes involving the first toe. No acute fracture or dislocation. No periosteal reaction. No subcutaneous emphysema. No foreign body. Impression: Degenerative changes to the first toe. Electronically Signed by Simon Marrero MD 11/18/2019 12:47 P
[2019-11-18] MEDS ORDERED: DOXY100C37 PO (13:09)
[2019-11-18] MEDS ORDERED: DOXYCYCLINE HYCLATE 100MG TABLET PO ONE (13:15)
[2019-11-18 13:40] VITALS: BP 169/80
== END 2019-11-18 13:42 | disposition home or self-care (01) ==
LOC: M ED 10:43
DX: L03.116 Cellulitis of left lower limb (principal); S90.822A Blister (nonthermal), left foot, initial encounter; X58.XXXA Exposure to other specified factors, initial encounter; E11.9 Type 2 diabetes mellitus without complications; K21.9 Gastro-esophageal reflux disease without esophagitis; I10 Essential (primary) hypertension; Z88.8 Allergy status to other drugs, medicaments and biological substances; Z79.899 Other long term (current) drug therapy

== ENCOUNTER → 2020-01-01 | Outpatient (REF) | payer BC ==
[~2020-01-01] MED LIST changes: +AMLO1TAB24 PO; -AMLO5TAB6 PO; +AMOX875T2 PO; -CLIN300C5 PO; +CLIN300C6 PO; +DOXY100C37 PO; -GLYB5TA PO; +GLYB5TAB6 PO; -HYDR-2808 PO; +HYDR-4429 PO; -LISI-538 PO; +LISI10TA22 PO; -LISI10TA4 PO; +LISI20TA33 PO; -LISI40TA PO; +LISI40TA4 PO; +SULF1TAB93 PO
[2020-01-01 13:35] LABS: HEMATOCRIT 43.4 % (42.0-52.0); HEMOGLOBIN 13.8 g/dl (13.5-17.5); MEAN CORPUSCULAR HEMOGLOBIN 27.1 pg (27.0-33.0); MEAN CORPUSCULAR HGB CONC 31.8 g/dl (32.0-36.5); MEAN CORPUSCULAR VOLUME 85.3 fl (80.0-96.0); PLATELET COUNT, AUTOMATED 229 10^3/uL (150-450); RED BLOOD COUNT 5.09 10^6/uL (4.30-6.10); WHITE BLOOD COUNT 4.5 10^3/uL (4.0-10.0)
[2020-01-01 14:15] LABS: ALBUMIN 2.7 GM/DL (3.2-5.2); ALT/SGPT 15 U/L (12-78); BILIRUBIN,TOTAL 0.8 MG/DL (0.2-1.0); BLOOD UREA NITROGEN 22 MG/DL (7-18); CARBON DIOXIDE LEVEL 25 MEQ/L (21-32); CHLORIDE LEVEL 105 MEQ/L (98-107); CHOLESTEROL LEVEL 167 MG/DL (<200); CHOLESTEROL RISK RATIO 4.911 (<5); FREE T4 1.14 NG/DL (0.76-1.46); GLOMERULAR FILTRATION RATE > 60.0 (>56); GLUCOSE, FASTING 120 MG/DL (70-100); HDL CHOLESTEROL 34 MG/DL (>40); LDL CHOLESTEROL 88 MG/DL (<100); NON-HDL-C 133 MG/DL; POTASSIUM SERUM 4.1 MEQ/L (3.5-5.1); SODIUM LEVEL 138 MEQ/L (136-145); THYROID STIMULATING HORMONE 0.851 uIU/ML (0.358-3.740); TOTAL PROTEIN 6.5 GM/DL (6.4-8.2); TRIGLYCERIDES LEVEL 223 MG/DL (<150)
[2020-01-01 14:54] LABS: HEMOGLOBIN A1c 11.3 %
== END ==
LOC: M SFHCADAM 11:15
PROVIDERS: ATTEND Physician Assistant
DX: E11.22 Type 2 diabetes mellitus with diabetic chronic kidney disease (principal); L03.116 Cellulitis of left lower limb; I73.9 Peripheral vascular disease, unspecified

== ENCOUNTER → 2020-01-06 | Outpatient (CLI) | payer BC ==
[~2020-01-06] MED LIST changes: -AMLO1TAB24 PO; +AMLO5TAB6 PO; +CLIN300C5 PO; -CLIN300C6 PO; +GLYB5TA PO; -GLYB5TAB6 PO; +HYDR-2808 PO; -HYDR-4429 PO; +LISI-538 PO; -LISI10TA22 PO; +LISI10TA4 PO; -LISI20TA33 PO; +LISI40TA PO; -LISI40TA4 PO
== END ==
LOC: M LABSMTC 09:11
PROVIDERS: ATTEND Anesthesiology
DX: Z01.818 Encounter for other preprocedural examination (principal); Z11.59 Encounter for screening for other viral diseases
CPT/HCPCS: C9803; U0003

== ENCOUNTER 2020-01-09 08:21 | Day surgery (SDC) | payer BC ==
[~2020-01-09] VITALS: Ht 185.4 cm; Wt 104.3 kg
[~2020-01-09 08:21] MED LIST changes: +AMLO1TAB24 PO; -AMLO5TAB6 PO; -CLIN300C5 PO; +CLIN300C6 PO; -GLYB5TA PO; +GLYB5TAB6 PO; -HYDR-2808 PO; +HYDR-4429 PO; +LIDOCAINE 1% MDV 20ML VIAL SQ PRN; -LISI-538 PO; +LISI10TA22 PO; -LISI10TA4 PO; +LISI20TA33 PO; -LISI40TA PO; +LISI40TA4 PO; +LR 1,000 ML IV ONE; -SULF1TAB93 PO; +ceFAZolin SOD 2 GM in IV 1 EA IV ONE
[2020-01-09] MEDS ORDERED: propofoL 500 MG/50 ML VIAL As Ordered ONE (08:34)
[2020-01-09] MEDS ORDERED: LIDOCAINE 2% 100MG/5ML SDV (FOR ANES.) As Ordered ONE (08:35)
[2020-01-09] MEDS ORDERED: MIDAZOLAM INJ 2MG/2ML VIAL (J2250 PER 1MG) As Ordered ONE (08:35)
[2020-01-09] MEDS ORDERED: fentaNYL 100 MCG/2 ML INJECTION (J3010) As Ordered ONE (08:35)
[2020-01-09] MEDS ORDERED: ONDANSETRON 4MG/2ML VIAL As Ordered ONE (08:35)
[2020-01-09] MEDS ORDERED: HumaLOG INSULIN (NovoLOG) PER UNIT As Ordered ONE (09:50)
[2020-01-09] MEDS ORDERED: HumaLOG INSULIN (NovoLOG) PER UNIT SC ONE (10:00)
[2020-01-09] MEDS ORDERED: BUPIVACAINE HCL 0.5% 10ML VIAL As Ordered ONE (10:45)
[2020-01-09] MEDS ORDERED: LIDOCAINE 1% MDV 20ML VIAL As Ordered ONE (10:46)
[2020-01-09] MEDS ORDERED: SULF1TAB93 PO (11:41)
[2020-01-09] MEDS ORDERED: dexameTHASONE 4 MG/ML 1ML VIAL (J1100 PER 1MG) As Ordered ONE (12:22)
[2020-01-09 12:30] VITALS: BP 170/80
--- NOTE | 2020-01-13 14:14 | RO ---
DATE OF PROCEDURE: 01/09/2020 PREPROCEDURE DIAGNOSIS: Left 5th metatarsal head ulceration and osteomyelitis. POSTPROCEDURE DIAGNOSIS: Left 5th metatarsal head ulceration and osteomyelitis. PROCEDURE: Left 5th metatarsal head excision and wound debridement, excision. SURGEON: Dr. Darien Myles. TAG WRITER: None. ANESTHESIA: Monitored anesthesia care with preoperative injection of 14 mL of 1:1 mixture of 1% lidocaine plain, 0.5% Marcaine plain. ESTIMATED BLOOD LOSS: Minimal. MATERIALS: #3-0 nylon. INJECTABLES: None. COMPLICATIONS: None. SPECIMENS: Left 5th metatarsal head. To Bradshaw is a 59-year-old male who presents to [facility] with an ulcer to his left foot. He has exposed bone and has infection to the site. The decision was made to bring him to the operating room for excision of the affected bone. The patient's site and side were identified and marked in the preoperative holding area. Consent was reviewed and obtained. The risks, complications, and alternatives to the procedure was explained to the patient in detail and all questions were answered. DESCRIPTION OF PROCEDURE: The patient was brought to the operating room and placed on the operating table in supine position. Monitored anesthesia care was delivered by the anesthesia team. Preoperative injection of 14 mL of 1:1 mixture of 1% lidocaine plain and 0.5% Marcaine plain were injected in the left foot. The left foot was prepped and draped in the normal sterile fashion. No tourniquet was used during the procedure. Wound cultures were taken of the ulcer following this, the decision was made along the ulcer, along the plain of the metatarsal bone. The soft tissue attachments to the bone were released and the bone was excised using sagittal saw. Some necrotic tissue as well as necrotic bone of the proximal phalanx were removed using rongeur and #15 blade. The site was then irrigated with normal saline. A portion of the incision was closed with #3-0 nylon. The remaining was packed with saline gauze. Dry sterile dressings were applied over top of this. The patient was brought to the postanesthesia care unit (PACU), vital signs stable, neurovascular status intact. He will be weightbearing as tolerated. Postoperatively, he will followup in the office in 2 days.
== END 2020-01-09 12:40 | disposition home or self-care (01) ==
LOC: M SDC 08:21
PROVIDERS: ATTEND Podiatrist Foot & Ankle Surgery
DX: E10.621 Type 1 diabetes mellitus with foot ulcer (principal); L97.529 Non-pressure chronic ulcer of other part of left foot with unspecified severity; E78.00 Pure hypercholesterolemia, unspecified; I10 Essential (primary) hypertension; G47.30 Sleep apnea, unspecified; F32.9 Major depressive disorder, single episode, unspecified; D64.9 Anemia, unspecified; Z79.4 Long term (current) use of insulin; Z79.84 Long term (current) use of oral hypoglycemic drugs; Z79.899 Other long term (current) drug therapy; Z79.82 Long term (current) use of aspirin; Z88.8 Allergy status to other drugs, medicaments and biological substances
CPT/HCPCS: 28122; 87070; 87075; 87077; 87205; 88305; 88311; J0690; J1100; J2250; J2405; J3010

== ENCOUNTER → 2020-01-24 | Outpatient (REF) | payer BC ==
[~2020-01-24] MED LIST changes: +CLIN300C5 PO; -CLIN300C6 PO; +GLYB5TA PO; -GLYB5TAB6 PO; -LIDOCAINE 1% MDV 20ML VIAL SQ PRN; +LISI-538 PO; -LISI10TA22 PO; +LISI10TA4 PO; -LISI20TA33 PO; +LISI40TA PO; -LISI40TA4 PO; -LR 1,000 ML IV ONE; +SULF1TAB93 PO; -ceFAZolin SOD 2 GM in IV 1 EA IV ONE
== END ==
LOC: M LAB REF 14:37
PROVIDERS: ATTEND Podiatrist Foot & Ankle Surgery
DX: L03.116 Cellulitis of left lower limb (principal)

== ENCOUNTER 2020-03-30 14:29 | Emergency (ER) | payer BC ==
[~2020-03-30] VITALS: Ht 185.4 cm; Wt 114.0 kg
[2020-03-30 15:40] LABS: BASO % 0.7 % (0.0-1.0); EOS # 0.1 10^3/uL (0.0-0.5); EOS % 2.3 % (0.0-3.0); HEMATOCRIT 41.5 % (42.0-52.0); HEMOGLOBIN 13.8 g/dl (13.5-17.5); LYMPH # 1.5 10^3/uL (1.5-5.0); LYMPH % 25.8 % (24.0-44.0); MEAN CORPUSCULAR HEMOGLOBIN 28.5 pg (27.0-33.0); MEAN CORPUSCULAR HGB CONC 33.3 g/dl (32.0-36.5); MEAN CORPUSCULAR VOLUME 85.7 fl (80.0-96.0); MONO # 0.4 10^3/uL (0.0-0.8); MONO % 6.7 % (0.0-5.0); NEUTROPHILS # 3.6 10^3/uL (1.5-8.5); NEUTROPHILS % 63.8 % (36.0-66.0); PLATELET COUNT, AUTOMATED 230 10^3/uL (150-450); RED BLOOD COUNT 4.84 10^6/uL (4.30-6.10); WHITE BLOOD COUNT 5.7 10^3/uL (4.0-10.0)
[2020-03-30 15:42] LABS: APPEARANCE, URINE CLEAR (CLEAR); BACTERIA, URINE AUTO NEGATIVE (NEGATIVE); BILIRUBIN, URINE AUTO NEGATIVE (NEGATIVE); BLOOD, URINE BLOOD 2+ (NEGATIVE); COLOR, URINE YELLOW (YELLOW); GLUCOSE, URINE (UA) AUTO 3+ mg/dL (NEGATIVE); KETONE, URINE AUTO NEGATIVE (NEGATIVE); LEUKOCYTE ESTERASE, URINE AUTO NEGATIVE (NEGATIVE); NITRITE, URINE AUTO NEGATIVE (NEGATIVE); PROTEIN, URINE AUTO 3+ mg/dL (NEGATIVE); RBC, URINE AUTO 8 /HPF (0-3); SPECIFIC GRAVITY URINE AUTO 1.025 (1.002-1.035); SQUAMOUS EPITHELIAL CELL UR AU 0 /HPF (0-6); UROBILINOGEN, URINE AUTO 0.2 mg/dL (0.0-2.0); WBC, URINE AUTO 1 /HPF (0-3)
[2020-03-30 16:11] LABS: ALBUMIN 2.4 GM/DL (3.2-5.2); ALT/SGPT 22 U/L (12-78); BILIRUBIN,TOTAL 0.2 MG/DL (0.2-1.0); BLOOD UREA NITROGEN 22 MG/DL (7-18); CALCIUM LEVEL 8.5 MG/DL (8.5-10.1); CARBON DIOXIDE LEVEL 28 MEQ/L (21-32); CHLORIDE LEVEL 111 MEQ/L (98-107); CREATININE FOR GFR 1.27 MG/DL (0.70-1.30); GLOMERULAR FILTRATION RATE > 60.0 (>56); GLUCOSE, FASTING 123 MG/DL (70-100); POTASSIUM SERUM 3.6 MEQ/L (3.5-5.1); SODIUM LEVEL 145 MEQ/L (136-145); TOTAL PROTEIN 5.6 GM/DL (6.4-8.2)
--- NOTE | 2020-03-30 16:30 | REPVR ---
PROCEDURE INFORMATION: Exam: US Duplex Lower Extremity Veins, Bilateral Exam date and time: 03/30/2020 4:11 PM Age: 59 years old Clinical indication: Edema, localized; Lower extremity, bilateral; Additional info: Swelling TECHNIQUE: Imaging protocol: Real-time duplex ultrasound of the extremities with 2-D marroquin scale, color Doppler flow and spectral waveform analysis with image documentation. Complete exam focused on the bilateral lower extremity veins. COMPARISON: US Duplex, Ext,LOWER veins,unilat 08/06/2019 12:04 PM FINDINGS: Right deep veins: Unremarkable. The common femoral, femoral, proximal profunda femoral and popliteal veins are patent without thrombus. Normal Doppler waveforms. Normal compressibility and/or augmentation response. Right superficial veins: Saphenofemoral junction is patent without thrombus. Left deep veins: Unremarkable. The common femoral, femoral, proximal profunda femoral and popliteal veins are patent without thrombus. Normal Doppler waveforms. Normal compressibility and/or augmentation response. Left superficial veins: Saphenofemoral junction is patent without thrombus. Soft tissues: Bilateral lower extremity edema. The calf veins were not imaged on this exam. IMPRESSION: No evidence of deep vein thrombosis from the popliteal vein superiorly. The calf veins were not imaged on this exam. Bilateral lower extremity edema. Electronically signed by: Abundio Pham On 03/30/2020 16:29:38 PM
[2020-03-30 17:20] VITALS: BP 184/90
== END 2020-03-30 17:23 | disposition home or self-care (01) ==
LOC: M ED 14:29
DX: R22.43 Localized swelling, mass and lump, lower limb, bilateral (principal); E11.9 Type 2 diabetes mellitus without complications; I10 Essential (primary) hypertension; K21.9 Gastro-esophageal reflux disease without esophagitis; N18.9 Chronic kidney disease, unspecified; D64.9 Anemia, unspecified; F17.200 Nicotine dependence, unspecified, uncomplicated; Z79.82 Long term (current) use of aspirin; Z79.4 Long term (current) use of insulin; Z79.899 Other long term (current) drug therapy; Z88.8 Allergy status to other drugs, medicaments and biological substances

== ENCOUNTER → 2020-04-16 | Outpatient (CLI) | payer BC ==
--- NOTE | 2020-04-20 18:08 | ECHO ---
DATE OF PROCEDURE: 04/17/2020 Age: 59 Gender: Male REFERRING PHYSICIAN: Angelika Perez PA-C REASON FOR STUDY: Edema. 2D MEASUREMENTS: IVS 1.1 cm LV 6.0 cm LVPW 1.1 cm LA 3.4 cm IVC 1.7 cm 2D COMMENTS: 1. Normal left ventricular size, wall thickness, and normal global left ventricular systolic function. The estimated left ventricular systolic ejection fraction is 60% to 65%. 2. Normal left atrium. Normal right atrium and right ventricle. 3. The atrial septum appeared to be normal without evidence of defect or shunt. 4. Normal aortic root. 5. Trace pericardial effusion noted. No evidence of cardiac tamponade. 6. Mildly calcified aortic valve with normal leaflet excursion. Mildly calcified mitral annulus with normal anterior mitral valve leaflet motion. Normal tricuspid valve and pulmonic valve. The proximal pulmonary artery branches also appeared to be normal. 7. The inferior vena cava is normal in size. Central venous pressure is most likely normal. 8. Doppler detects trace mitral regurgitation, mild tricuspid regurgitation. Pulmonary artery systolic pressure is probably normal. Assessment of the left ventricular diastolic function appeared to be normal. IMPRESSION: 1. Normal global left ventricular systolic and diastolic function. 2. Aortic valve sclerosis with trace aortic regurgitation, but no aortic stenosis. 3. Mitral annulus calcification with mild mitral regurgitation. 4. Trace pericardial effusion. No evidence of cardiac tamponade. MTDD
== END ==
LOC: M CARPUL 08:15
PROVIDERS: ATTEND Physician Assistant Medical
DX: R60.9 Edema, unspecified (principal); I08.0 Rheumatic disorders of both mitral and aortic valves

== ENCOUNTER → 2020-07-31 | Outpatient (REF) | payer BC ==
[~2020-07-31] MED LIST changes: -CLIN300C5 PO; +CLIN300C6 PO
[2020-08-01 13:27] LABS: HEMATOCRIT 40.1 % (42.0-52.0); HEMOGLOBIN 13.6 g/dl (13.5-17.5); MEAN CORPUSCULAR HEMOGLOBIN 29.2 pg (27.0-33.0); MEAN CORPUSCULAR HGB CONC 33.9 g/dl (32.0-36.5); MEAN CORPUSCULAR VOLUME 86.1 fl (80.0-96.0); PLATELET COUNT, AUTOMATED 169 10^3/uL (150-450); RED BLOOD COUNT 4.66 10^6/uL (4.30-6.10); WHITE BLOOD COUNT 6.7 10^3/uL (4.0-10.0)
[2020-08-01 13:42] LABS: HEMOGLOBIN A1c 11.8 %
[2020-08-01 14:17] LABS: ALT/SGPT 25 U/L (12-78); BILIRUBIN,TOTAL 0.5 MG/DL (0.2-1.0); BLOOD UREA NITROGEN 35 MG/DL (7-18); CALCIUM LEVEL 8.8 MG/DL (8.5-10.1); CARBON DIOXIDE LEVEL 29 MEQ/L (21-32); CHLORIDE LEVEL 105 MEQ/L (98-107); CHOLESTEROL LEVEL 167 MG/DL (<200); CHOLESTEROL RISK RATIO 5.387 (<5); CREATININE FOR GFR 1.78 MG/DL (0.70-1.30); FOLATE 6.2 NG/ML; FREE T4 0.92 NG/DL (0.76-1.46); GLOMERULAR FILTRATION RATE 41.9 (>56); GLUCOSE, FASTING 280 MG/DL (70-100); HDL CHOLESTEROL 31 MG/DL (>40); NON-HDL-C 136 MG/DL; POTASSIUM SERUM 4.8 MEQ/L (3.5-5.1); SODIUM LEVEL 139 MEQ/L (136-145); TOTAL PROTEIN 5.8 GM/DL (6.4-8.2); TRIGLYCERIDES LEVEL 467 MG/DL (<150); VITAMIN B12 LEVEL 560 PG/ML
== END ==
LOC: M SFHCADAM 16:06
PROVIDERS: ATTEND Physician Assistant
DX: E11.65 Type 2 diabetes mellitus with hyperglycemia (principal); I10 Essential (primary) hypertension; E11.29 Type 2 diabetes mellitus with other diabetic kidney complication; G56.91 Unspecified mononeuropathy of right upper limb

== ENCOUNTER → 2020-12-22 | Outpatient (REF) | payer BC ==
[~2020-12-22] MED LIST changes: +BACTDSTA PO; +GABA-283 PO; -GABA-845 PO; -GLYB5TA PO; +GLYB5TAB6 PO; -LISI-538 PO; +LISI10TA22 PO; -LISI10TA4 PO; +LISI20TA33 PO; -LISI40TA PO; +LISI40TA4 PO; -SULF1TAB93 PO
[2020-12-22 16:53] LABS: BASO # 0.1 10^3/uL (0.0-0.2); BASO % 0.8 % (0.0-1.0); EOS # 0.1 10^3/uL (0.0-0.5); EOS % 1.9 % (0.0-3.0); HEMOGLOBIN 13.1 g/dl (13.5-17.5); LYMPH # 1.9 10^3/uL (1.5-5.0); LYMPH % 31.7 % (24.0-44.0); MEAN CORPUSCULAR HEMOGLOBIN 28.9 pg (27.0-33.0); MEAN CORPUSCULAR HGB CONC 32.8 g/dl (32.0-36.5); MEAN CORPUSCULAR VOLUME 88.3 fl (80.0-96.0); MONO # 0.5 10^3/uL (0.0-0.8); MONO % 7.6 % (2.0-8.0); NEUTROPHILS # 3.4 10^3/uL (1.5-8.5); NEUTROPHILS % 57.3 % (36.0-66.0); PLATELET COUNT, AUTOMATED 165 10^3/uL (150-450); RED BLOOD COUNT 4.53 10^6/uL (4.30-6.10); WHITE BLOOD COUNT 5.9 10^3/uL (4.0-10.0)
[2020-12-22 17:38] LABS: ALBUMIN 2.2 GM/DL (3.2-5.2); BILIRUBIN,TOTAL 0.2 MG/DL (0.2-1.0); CALCIUM LEVEL 8.5 MG/DL (8.5-10.1); CHOLESTEROL RISK RATIO 5.096 (<5); CREATININE FOR GFR 1.59 MG/DL (0.70-1.30); GLOMERULAR FILTRATION RATE 47.7 (>56); POTASSIUM SERUM 3.8 MEQ/L (3.5-5.1); THYROID STIMULATING HORMONE 0.906 uIU/ML (0.358-3.740); TOTAL PROTEIN 5.4 GM/DL (6.4-8.2)
== END ==
LOC: M SFHCADAM 11:57
PROVIDERS: ATTEND Physician Assistant Medical
DX: Z12.5 Encounter for screening for malignant neoplasm of prostate (principal); E11.29 Type 2 diabetes mellitus with other diabetic kidney complication; E11.22 Type 2 diabetes mellitus with diabetic chronic kidney disease; E55.9 Vitamin D deficiency, unspecified
CPT/HCPCS: 80053; 80061; 82306; 83036; 84443; 85025; G0103

== ENCOUNTER → 2020-12-26 | Outpatient (REF) | payer BC ==
[2020-12-26 17:08] LABS: PERCENT SATURATION 29.2 % (19.7-50.0)
[2020-12-26 17:15] LABS: FOLATE 4.4 NG/ML
[2020-12-26 17:48] LABS: APPEARANCE, URINE CLEAR (CLEAR); BACTERIA, URINE AUTO NEGATIVE (NEGATIVE); BILIRUBIN, URINE AUTO NEGATIVE (NEGATIVE); BLOOD, URINE BLOOD 2+ (NEGATIVE); COLOR, URINE STRAW (YELLOW); GLUCOSE, URINE (UA) AUTO 3+ mg/dL (NEGATIVE); KETONE, URINE AUTO NEGATIVE (NEGATIVE); LEUKOCYTE ESTERASE, URINE AUTO NEGATIVE (NEGATIVE); MUCUS, URINE SMALL (NEGATIVE); NITRITE, URINE AUTO NEGATIVE (NEGATIVE); PROTEIN, URINE AUTO 3+ mg/dL (NEGATIVE); RBC, URINE AUTO 5 /HPF (0-3); SPECIFIC GRAVITY URINE AUTO 1.014 (1.002-1.035); SQUAMOUS EPITHELIAL CELL UR AU 0 /HPF (0-6); UROBILINOGEN, URINE AUTO 0.2 mg/dL (0.0-2.0); WBC, URINE AUTO 1 /HPF (0-3)
[2020-12-26 18:40] LABS: CREATININE, URINE 21.2 MG/DL; MAU/CREAT RATIO 12877.3 MCG/MG (0.0-30.0)
== END ==
LOC: M SFHCADAM 13:47
PROVIDERS: ATTEND Physician Assistant Medical
DX: N18.31 Chronic kidney disease, stage 3a (principal); D63.8 Anemia in other chronic diseases classified elsewhere; Z12.11 Encounter for screening for malignant neoplasm of colon

== ENCOUNTER 2021-01-08 13:42 | Emergency (ER) | payer BC ==
[~2021-01-08] VITALS: Ht 188 cm; Wt 106.8 kg
[~2021-01-08 13:42] MED LIST changes: -DOXY100C37 PO; +DOXY1CAP62 PO
[2021-01-08] MEDS ORDERED: FURO40TA2 PO (13:58)
[2021-01-08] MEDS ORDERED: ACETAMINOPHEN 500 MG TAB PO ONE (16:05)
--- NOTE | 2021-01-08 16:42 | REP ---
INDICATION: DYSPNEA/COUGH. COMPARISON: None. TECHNIQUE: AP and lateral FINDINGS: The technique utilized in obtaining the radiograph has magnified the cardiac silhouette and attenuated the interstitial markings. The cardiomediastinal silhouette is within normal limits for the technique. Heart is not enlarged. The lung irizarry are hypoexpanded further limiting the examination and accentuating the interstitial markings. No patchy opacities or pleural effusions are evident. The osseous structures are within normal limits. IMPRESSION: Technique as described above. There is no evidence of acute cardiopulmonary disease. Consider PA and lateral views of the chest with better inspiratory effort. <Electronically signed by Bandar Reyes > 01/08/21 [id number]
[2021-01-08 17:25] LABS: ALBUMIN 1.5 GM/DL (3.2-5.2); ALT/SGPT 36 U/L (12-78); BILIRUBIN,DIRECT 0.4 MG/DL (0.0-0.2); BILIRUBIN,TOTAL 0.7 MG/DL (0.2-1.0); CPK CREATINE PHOSPHOKINASE 347 U/L (39-308); MB/CK RELATIVE INDEX 0.86 (< OR =4); NT-PRO BNP 4877 PG/ML (<125); TROPONIN I < 0.02 NG/ML (< 0.10)
[2021-01-08 17:34] LABS: BASO % 0.2 % (0.0-1.0); EOS % 0.1 % (0.0-3.0); HEMATOCRIT 32.2 % (42.0-52.0); HEMOGLOBIN 10.5 g/dl (13.5-17.5); LYMPH # 0.8 10^3/uL (1.5-5.0); LYMPH % 5.2 % (24.0-44.0); MEAN CORPUSCULAR HEMOGLOBIN 28.6 pg (27.0-33.0); MEAN CORPUSCULAR HGB CONC 32.6 g/dl (32.0-36.5); MEAN CORPUSCULAR VOLUME 87.7 fl (80.0-96.0); MONO # 0.7 10^3/uL (0.0-0.8); MONO % 4.3 % (2.0-8.0); NEUTROPHILS # 14.2 10^3/uL (1.5-8.5); NEUTROPHILS % 89.1 % (36.0-66.0); PLATELET COUNT, AUTOMATED 253 10^3/uL (150-450); RED BLOOD COUNT 3.67 10^6/uL (4.30-6.10); WHITE BLOOD COUNT 15.9 10^3/uL (4.0-10.0)
[2021-01-08] MEDS ORDERED: POTASSIUM CHLORIDE 10 MEQ SR TABLET PO ONE (17:55)
[2021-01-08 17:59] LABS: BLOOD UREA NITROGEN 34 MG/DL (7-18); CALCIUM LEVEL 7.9 MG/DL (8.5-10.1); CARBON DIOXIDE LEVEL 24 MEQ/L (21-32); CHLORIDE LEVEL 108 MEQ/L (98-107); CREATININE FOR GFR 1.98 MG/DL (0.70-1.30); GLUCOSE, FASTING 46 MG/DL (70-100); POTASSIUM SERUM 2.9 MEQ/L (3.5-5.1); SODIUM LEVEL 141 MEQ/L (136-145)
[2021-01-08] MEDS ORDERED: KCL 10MEQ/100ML SWI (KRUN) 10 MEQ in IV 1 EA IV ONE (18:00)
[2021-01-08] MEDS ORDERED: VANCOMYCIN HCL 2,000 MG in IV FLUID PLACE HOLDER 1 EA IV ONE (18:20)
[2021-01-08] MEDS ORDERED: VANCOMYCIN HCL 1,000 MG, VIAL MATE ADAPTER 1 EACH in NS 250 ML IV ONE ×6 (19:00)
[2021-01-08] MEDS ORDERED: DOXY1CAP62 PO (20:41)
--- NOTE | 2021-01-08 21:23 | ECGEPIP ---
[facility] - ED Test Date: 2021-01-08 Pat Name: VELMA PHILLIPS Department: Room: - Gender: Male General Internal Medicine Doctor: NEGRITA : 1960 Requested By: MAURICE LINK PA-C Order Number: [id number] Reading MD: Phil White Measurements Intervals [place] Rate: 97 P: 50 NE: 128 QRS: 15 QRSD: 98 T: 132 QT: 366 QTc: 464 Interpretive Statements Sinus rhythm with premature atrial complexes INCOMPLETE RIGHT BUNDLE BR[address] BLOCK ST & T wave abnormality, consider lateral ischemia Electronically Signed on 01-08-2021 21:22:55 EDT by Phil White
[2021-01-08 22:39] VITALS: BP 136/71
== END 2021-01-08 23:01 | disposition home or self-care (01) ==
LOC: M ED 13:42
DX: L03.116 Cellulitis of left lower limb (principal); N17.9 Acute kidney failure, unspecified; E87.6 Hypokalemia; I45.19 Other right bundle-branch block; E11.9 Type 2 diabetes mellitus without complications; I10 Essential (primary) hypertension; E78.5 Hyperlipidemia, unspecified; K21.9 Gastro-esophageal reflux disease without esophagitis; F32.9 Major depressive disorder, single episode, unspecified; Z87.442 Personal history of urinary calculi; F17.200 Nicotine dependence, unspecified, uncomplicated; Z79.82 Long term (current) use of aspirin; Z79.4 Long term (current) use of insulin; Z79.899 Other long term (current) drug therapy; Z88.8 Allergy status to other drugs, medicaments and biological substances
CPT/HCPCS: 71046; 80048; 80076; 82550; 82553; 83605; 83880; 84484; 85025; 87798; 93005; 96365; 96366; 96368; 99284; J3370

== ENCOUNTER 2021-01-12 10:34 | Inpatient (IN) | payer BC ==
[~2021-01-12] VITALS: Ht 188 cm; Wt 106.8 kg
[2021-01-12] VITALS (7 sets, daily range): BP systolic 140–168; BP diastolic 70–85
[~2021-01-12 10:34] MED LIST changes: +FURO40TA2 PO
[2021-01-12 12:00] LABS: BASO # 0.1 10^3/uL (0.0-0.2); BASO % 0.4 % (0.0-1.0); EOS # 0.2 10^3/uL (0.0-0.5); EOS % 1.4 % (0.0-3.0); HEMATOCRIT 31.3 % (42.0-52.0); HEMOGLOBIN 10.3 g/dl (13.5-17.5); LYMPH # 1.3 10^3/uL (1.5-5.0); MEAN CORPUSCULAR HEMOGLOBIN 28.9 pg (27.0-33.0); MEAN CORPUSCULAR HGB CONC 32.9 g/dl (32.0-36.5); MEAN CORPUSCULAR VOLUME 87.7 fl (80.0-96.0); MONO # 0.5 10^3/uL (0.0-0.8); MONO % 4.6 % (2.0-8.0); NEUTROPHILS # 9.1 10^3/uL (1.5-8.5); NEUTROPHILS % 80.6 % (36.0-66.0); PLATELET COUNT, AUTOMATED 230 10^3/uL (150-450); RED BLOOD COUNT 3.57 10^6/uL (4.30-6.10); WHITE BLOOD COUNT 11.3 10^3/uL (4.0-10.0)
[2021-01-12 12:29] LABS: ERYTHROCYTE SEDIMENTATION RATE 125 mm/hr (0-20)
[2021-01-12 12:33] LABS: RSV AMPLIFICATION NEGATIVE (NEGATIVE)
[2021-01-12 12:40] LABS: ALBUMIN 1.4 GM/DL (3.2-5.2); BILIRUBIN,TOTAL 0.2 MG/DL (0.2-1.0); C REACTIVE PROTEIN QUANTITATIV 23.1 MG/DL (0.00-0.30); CALCIUM LEVEL 7.9 MG/DL (8.5-10.1); CREATININE FOR GFR 1.83 MG/DL (0.70-1.30); GLOMERULAR FILTRATION RATE 40.5 (>56); POTASSIUM SERUM 3.4 MEQ/L (3.5-5.1); TOTAL PROTEIN 4.9 GM/DL (6.4-8.2)
[2021-01-12] MEDS ORDERED: AMLO1TAB24 PO (13:01)
--- NOTE | 2021-01-12 13:31 | REP ---
INDICATION: left foot infection/abscess COMPARISON: 11/18/2019 TECHNIQUE: AP, lateral, bilateral oblique views left foot. FINDINGS: Since the prior examination, there appears to have been partial resection of the 5th metatarsal bone. The residual portion of the proximal 5th metatarsal bone has a somewhat heterogeneous mottled appearance and there is overlying soft tissue swelling with innumerable subcutaneous emphysematous bubbles. Findings are suspicious for underlying cellulitis/abscess and possible osteomyelitis. Remainder of the examination demonstrates relatively stable age-related degenerative changes. IMPRESSION: Pathologic findings as described above suggesting elements of cellulitis, abscess, and possible osteomyelitis along the lateral aspect of the foot. <Electronically signed by Simon Marrero > 01/12/21 [id number]
[2021-01-12] MEDS ORDERED: DOXY1CAP62 PO (15:05)
[2021-01-12] MEDS ORDERED: LIDOCAINE 1% SDV 30ML VIAL As Ordered ONE (15:16)
[2021-01-12] MEDS ORDERED: BUPIVACAINE HCL 0.5% 30 ML VIAL As Ordered ONE (15:16)
[2021-01-12] MEDS ORDERED: propofoL 500 MG/50 ML VIAL As Ordered ONE (15:28)
[2021-01-12] MEDS ORDERED: MIDAZOLAM INJ 2MG/2ML VIAL (J2250 PER 1MG) As Ordered ONE (15:29)
[2021-01-12] MEDS ORDERED: fentaNYL 100 MCG/2 ML INJECTION (J3010) As Ordered ONE (15:30)
[2021-01-12] MEDS ORDERED: VANCOMYCIN 1000MG/20ML VIAL As Ordered ONE (16:32)
[2021-01-12] MEDS ORDERED: HYDROMORPHONE HCL 0.5 MG/ 0.5 ML SYRINGE (J1170 PER 1) IV PRN (17:55)
[2021-01-12] MEDS ORDERED: LR 1,000 ML IV SCH (17:55)
[2021-01-12] MEDS ORDERED: ONDANSETRON 4MG/2ML VIAL IV PRN (17:55)
[2021-01-12] MEDS ORDERED: oxyCODONE 5MG TAB PO PRN (17:55)
[2021-01-12] MEDS ORDERED: fentaNYL 100 MCG/2 ML INJECTION (J3010) IV PRN (17:55)
[2021-01-12] MEDS ORDERED: PERCOCET 5MG/325MG TAB PO PRN ×2 (18:00)
[2021-01-12] MEDS ORDERED: DEXTROSE 50% 50 ML SYRINGE IV PRN (18:30)
[2021-01-12] MEDS ORDERED: GLUCOSE 4GM CHEW TABLET PO PRN (18:30)
[2021-01-12] MEDS ORDERED: GLUCAGON INJ 1MG VIAL SC PRN (18:30)
--- NOTE | 2021-01-12 18:49 | HPEPDOC ---
General Date of Admission Jan 12, 2021 at 14:53 Date of Service: Jan 12, 2021 Chief Complaint left foot wound Source: Patient Exam Limitations: No limitations Timing/Duration: Week(s), Getting worse Severity: Moderate Associated Symptoms: Denies Symptoms History of Present Illness The patient is a 60-year-old male with significant history of peripheral vascular disease 2/2 DM2 with multiple prior right foot debridements and amputations now presenting with left foot ulceration sent in by podiatry for same day debridement and wound care. He states that for the past 1.5 weeks he was noticing bleeding and drainage from the bottom of his right foot and was trying to get into see his monumental stonemason but was unable to until this morning. He denies pain, but does have chronic neuropathy. He denies fevers, chills, shortness of breath, or any other concerns but does state that he is hungry as he has not eaten since last night. Home Medications Scheduled Amlodipine Besylate (Amlodipine Besylate) 5 Mg Tablet, 5 MG PO BID, (Reported) Aspirin (Aspirin EC) 81 Mg Tab, 81 MG PO DAILY, (Reported) Atorvastatin Calcium (Atorvastatin Calcium) 40 Mg Tab, 40 MG PO QHS, (Reported) Doxycycline Monohydrate (Doxycycline Monohydrate) 100 Mg Capsule, 100 MG PO BID, (Reported) Empagliflozin (Jardiance) 25 Mg Tablet, 25 MG PO DAILY, (Reported) Ergocalciferol (Vitamin D2) (Drisdol) 1,250 Mcg Capsule, 50,000 UNITS PO QWEEK, (Reported) MONDAYS Fenofibrate (Fenofibrate) 160 Mg Tab, 160 MG PO DAILY, (Reported) Furosemide (Furosemide) 40 Mg Tablet, 40 MG PO DAILY, (Reported) Glyburide (Glyburide) 5 Mg Tab, 5 MG PO BID, (Reported) Insulin Glargine,Hum.rec.anlog (Toujeo Solostar) 300 Unit/1 Ml Insuln.pen, 50 UNITS SC QHS, (Reported) Omeprazole (Omeprazole) 20 Mg Cap, 20 MG PO DAILY, (Reported) Paroxetine HCl (Paroxetine HCl) 20 Mg Tablet, 20 MG PO DAILY, (Reported) Allergies Coded Allergies: metformin (Verified Adverse Reaction, Mild, DIARRHEA, 01/08/21) Past Medical History Medical History As per chart Surgical History As per chart Family History Significant Family History: No pertinent family hx Social History * Smoker: less than 1 pack/day, cigarettes Alcohol: occationally Drugs: denies Recent Travel/Sick Contacts: Denies: Recent travel, Recent sick contacts lives at home with , retired/disabled A-FIB/CHADSVASC A-FIB History Current/History of A-Fib/PAF?: No Current PO Anticoag Therapy: No Age/Risk Factor Scoring CHADSVASC: CHADSVASC Response (Comments) Value Age Risk Factor Age < 65 years old 0 Gender Risk Factor Male 0 Hx of CHF No 0 Hx of HTN Yes 1 Hx of Stroke/TIA/or VTE No 0 Hx of Diabetes Yes 1 Hx of Vascular Disease Yes 1 Total 3 Treatment Treatment ordered: Other (lovenox) Other anticoagulant ordered: Lovenox Review of Systems Constitutional: Denies: Chills, Fever, Night Sweats Eyes: Denies: Pain, Vision change Skin: Reports: Lesions, Breakdown; Denies: Rash Pulmonary: Denies: Dyspnea, Cough Cardiovascular: Denies: Chest Pain, Palpitations, Orthopnea, Paroxysmal Noc. Dyspnea, Lt Headedness Gastrointestinal: Denies: Nausea, Vomiting, Abdominal Pain, Diarrhea Hematologic: Denies: Bruising, Bleeding Excessively Endocrine: Denies: Polydipsia, Polyphagia, Polyuria Musculoskeletal: Denies: Foot Pain, Muscle Pain, Spasms Neurological: Denies: Weakness, Numbness, Change in speech, Confusion Physical Examination General Exam: Positive: Alert, Cooperative, No Acute Distress Eye Exam: Positive: PERRLA, Conjunctiva & lids normal, EOMI, Sclera icteric ENT Exam: Positive: Atraumatic, Mucous membr. moist/pink, Pharynx Normal, Tongue Midline; Negative: Pharyngeal Edema Neck Exam: Positive: Supple, +2 carotid pulse wo bruit; Negative: JVD, Lymphadenopathy Chest Exam: Positive: Clear to auscultation, Normal air movement; Negative: Rales, Rhonchi, Wheezing Heart Exam: Positive: Rate Normal, Regular Rhythm, Normal S1, Normal S2; Negative: Tachycardic, Murmurs, Rubs Abdomen Exam: Positive: Normal bowel sounds, Soft; Negative: Tenderness, Hepatospenomegaly Extremity Exam: Positive: Normal pulses (dpp and ptp) Skin Exam: Positive: Breakdown (central ulceration at plantar aspect of left foot and lateral aspect of left mid foot, superficial breakdowna and erythema along plantar aspect of left foot); Negative: Nl turgor and temperature Neuro Exam: Positive: Normal Speech; Negative: Sensation Intact (diminished to soft touch to bilateral ankles) Psych Exam: Positive: Mental status NL, Mood NL, Oriented x 3; Negative: Anxiety Vital Signs Vital Signs Date Time Temp Pulse Resp B/P (MAP) Pulse Ox O2 Delivery O2 Flow Rate FiO2 01/12/21 18:15 97.5 94 17 141/82 (101) 95 Room Air Laboratory Data Labs 24H Laboratory Tests 2 01/12/21 10:49: Immature Granulocyte % (Auto) 2.0, Neutrophils (%) (Auto) 80.6H, Lymphocytes (%) (Auto) 11.0L, Monocytes (%) (Auto) 4.6, Eosinophils (%) (Auto) 1.4, Basophils (%) (Auto) 0.4, Neutrophils # (Auto) 9.1H, Lymphocytes # (Auto) 1.3L, Monocytes # (Auto) 0.5, Eosinophils # (Auto) 0.2, Basophils # (Auto) 0.1, Nucleated Red Blood Cells % (auto) 0.0, Erythrocyte Sedimentation Rate 125H, Anion Gap 6L, Glomerular Filtration Rate 40.5L, Calcium Level 7.9L, Total Bilirubin 0.2, Aspartate Amino Transf (AST/SGOT) 19, Alanine Aminotransferase (ALT/SGPT) 38, Alkaline Phosphatase 127H, C-Reactive Protein, Quantitative 23.10H, Total Protein 4.9L, Albumin 1.4L, Albumin/Globulin Ratio 0.4 01/12/21 11:39: Coronavirus (COVID-19)(PCR) NEGATIVE, Influenza Type A (RT-PCR) NEGATIVE, Influenza Type B (RT-PCR) NEGATIVE, Respiratory Syncytial Virus (PCR) NEGATIVE 01/12/21 16:36: Bedside Glucose (Misc Panel) 156H CBC/BMP Laboratory Tests 01/12/21 10:49 Microbiology Microbiology 01/12/21 Anaerobic Culture, Received Pending 01/12/21 Gram Stain, Received Pending 01/12/21 Wound Culture, Received Pending 01/12/21 Blood Culture, Received Pending 01/12/21 Blood Culture, Received Pending Assessment/Plan Mr. Bradshaw is a 60 year old male admitted for medical management following a left foot wound debridement with podiatry. He tolerated the procedure well and remains on IV ABX pending culture and possible return to OR. Problems (1) Cellulitis of left foot Status: Acute Response to Treatment: Stable Discussed With: Nurse, Patient Problem Specific Plan: Consult Specialist (now s/p debridement in OR), Repeat Labs (following cultures and CBC) (2) Poorly controlled diabetes mellitus Status: Chronic Response to Treatment: Stable, Controlled Discussed With: Patient Problem Specific Plan: Monitor Clinically, Repeat Labs (3) PVD (peripheral vascular disease) Permanent Comment: Last Edited By: Leonard Quiroz MD on Aug 19, 2019 11:27 Status: Chronic Response to Treatment: Stable Problem Specific Plan: Monitor Clinically (4) Anemia of chronic disease Status: Chronic Response to Treatment: Stable Problem Specific Plan: Repeat Labs (anemia is at baseline /slightly improved. This is in the setting of chronic protein malnutrition) (5) CKD stage G3a/A2, GFR 45-59 and albumin creatinine ratio 30-299 mg/g Status: Chronic Response to Treatment: Stable Problem Specific Plan: Repeat Labs (monitor with daily BMP, baseline sCr about 1.6, is 1.89 today, so not quite at threshold for LA) (6) Diabetic neuropathy Status: Chronic Response to Treatment: Stable Problem Specific Plan: Monitor Clinically (7) Hypertension Status: Chronic Response to Treatment: Worse (In setting of holding BP medications. Will resume now that patient is tolerating PO) (8) Nicotine addiction Status: Chronic Response to Treatment: Stable Problem Specific Plan: Monitor Clinically (9) Dyslipidemia Status: Chronic Response to Treatment: Stable Problem Specific Plan: Monitor Clinically Plan / VTE VTE Prophylaxis Ordered?: Yes Plan Diet: Continue Current Activity: Continue Current, Advance Therapy: PT, Home Safety Eval, Wound Consult Pt and Family Services: Home Care Diagnostics: Repeat Labs in AM Anticipated Discharge: Home With Services ADAMARIS MORE MD MPH Jan 12, 2021 18:49
[2021-01-12] MEDS: PIPERACILLIN/TAZOBACTAM SOD 3.375 GM in D5W MINI-BAG PLUS 50 ML IV SCH (18:53)
[2021-01-12] MEDS: PARoxetine 20MG TABLET PO SCH (19:00)
[2021-01-12] MEDS ORDERED: amLODIPine 5 MG TAB PO ONE (19:00)
[2021-01-12] MEDS: amLODIPine 5 MG TAB PO SCH (19:26)
--- NOTE | 2021-01-12 20:14 | CR ---
CONSULTATION DATE: 01/12/2021 REASON FOR CONSULTATION: Left foot infection. HISTORY OF PRESENT ILLNESS: Sheldon Bradshaw is a patient well-known to me who was seen in my office earlier today. He was noted to have a fulminant left foot infection. He had been seen in the emergency room (ER) earlier and had been discharged on oral doxycycline, but he states that the wound was not as bad at that time and has gotten dramatically worse in the last day. PAST MEDICAL HISTORY: Significant for: 1. Diabetes with neuropathy. 2. Charcot's foot on the right. PAST SURGICAL HISTORY: Includes: 1. Bone in metatarsal amputations on the left foot and right foot. ALLERGIES: Metformin. FAMILY HISTORY: Small cell lung cancer. REVIEW OF SYSTEMS: Positive for fevers. VITAL SIGNS: Are reviewed. Maximum temperature (T-max) on admission was 99.1. LABORATORY DATA: Reviewed. White blood cell count 11.3. Erythrocyte sedimentation rate (ESR) 125. C-reactive protein (CRP) 23.1. X-rays show findings of soft tissue emphysema within the feet consistent with cellulitis and abscess and possible osteomyelitis to the left lateral foot. PHYSICAL EXAMINATION: LOWER EXTREMITY EXAMINATION: There is erythema, edema and necrotic tissue along the plantar and lateral surface of the left foot with purulent drainage. ASSESSMENT: This is a 60-year-old diabetic male with left foot abscess infection. PLAN: Patient to go to the operating room (OR) now for incision and drainage and wound cultures. Will start empiric antibiotics after cultures are taken.
[2021-01-12] MEDS: HumaLOG INSULIN (NovoLOG) PER UNIT SC SCH (20:37)
[2021-01-12] MEDS: ATORVASTATIN 20 MG TAB PO SCH (20:37)
[2021-01-12] MEDS ORDERED: VANCOMYCIN HCL 1,000 MG, VIAL MATE ADAPTER 1 EACH in NS 250 ML IV ONE (22:00)
--- NOTE | 2021-01-12 22:39 | ECGEPIP ---
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
[2021-01-13] MEDS: PIPERACILLIN/TAZOBACTAM SOD 3.375 GM in D5W MINI-BAG PLUS 50 ML IV SCH ×4 (00:40→17:35)
[2021-01-13 02:00] VITALS: BP 161/88
[2021-01-13 06:00] VITALS: BP 161/72
[2021-01-13 06:09] LABS: HEMATOCRIT 32.2 % (42.0-52.0); HEMOGLOBIN 10.3 g/dl (13.5-17.5); MEAN CORPUSCULAR HEMOGLOBIN 28.3 pg (27.0-33.0); MEAN CORPUSCULAR VOLUME 88.5 fl (80.0-96.0); PLATELET COUNT, AUTOMATED 245 10^3/uL (150-450); RED BLOOD COUNT 3.64 10^6/uL (4.30-6.10); WHITE BLOOD COUNT 9.1 10^3/uL (4.0-10.0)
[2021-01-13 06:44] LABS: C REACTIVE PROTEIN QUANTITATIV 16.2 MG/DL (0.00-0.30); CALCIUM LEVEL 7.7 MG/DL (8.5-10.1); CREATININE FOR GFR 1.77 MG/DL (0.70-1.30); GLOMERULAR FILTRATION RATE 42.1 (>56); MAGNESIUM LEVEL 2.3 MG/DL (1.8-2.4)
[2021-01-13] MEDS: VANCOMYCIN HCL 750 MG, VIAL MATE ADAPTER 1 EACH in NS 250 ML IV SCH ×2 (08:17→20:13)
[2021-01-13] MEDS: HumaLOG INSULIN (NovoLOG) PER UNIT SC SCH ×4 (08:18→20:14)
[2021-01-13] MEDS: FUROSEMIDE 40 MG TAB PO SCH (08:18)
[2021-01-13] MEDS: amLODIPine 5 MG TAB PO SCH (08:19)
[2021-01-13] MEDS: OMEPRAZOLE 20 MG CAP PO SCH (08:19)
[2021-01-13] MEDS: ENOXAPARIN 40MG/0.4ML SYRINGE (J1650 PER 10MG) SC SCH (08:19)
[2021-01-13] MEDS: PARoxetine 20MG TABLET PO SCH (08:19)
--- NOTE | 2021-01-13 08:53 | RO ---
OPERATIVE NOTE DATE OF OPERATION: 01/12/2021 PREOPERATIVE DIAGNOSIS: Left foot abscess, cellulitis. POSTOPERATIVE DIAGNOSIS: Left foot abscess, cellulitis. PROCEDURE: Left foot incision and drainage. SURGEON: Darien Myles DPM COMPUTER DRAFTER: None. ANESTHESIA: Monitored anesthesia care, preop injection of 20 mL of 1:1 mixture of 1% Lidocaine plain and 0.5% Marcaine plain. ESTIMATED BLOOD LOSS: Minimal. MATERIALS: None. COMPLICATIONS: None. SPECIMEN: Left 5th metatarsal bone and necrotic tissue, aerobic and anaerobic cultures. CONDITION: Stable. INDICATIONS: Sheldon Bradshaw is a 60-year-old diabetic male who was seen in my office this morning and noted to have a fulminating necrotic left foot ulcer. He was sent to the hospital for admission and for surgery. The patient, site and side were identified and marked in preoperative area. Consent was reviewed and obtained. Risks, complications, and alternatives to the procedure were explained to the patient in detail and all questions were answered. DESCRIPTION OF PROCEDURE: The patient was brought to the operating room and placed on the operating table in supine position. Monitored anesthesia care was delivered by the anesthesia team. Preop injection of 20 mL of 1:1 mixture of 1% Lidocaine plain and 0.5% Marcaine plain was injected in left foot. The left foot was prepped and draped in normal sterile fashion. Tourniquet was applied to the left ankle but was not utilized during the procedure. There was a necrotic ulcer along the lateral arch and heel and there was a separate ulcer which communicated to the central arch. There was significant purulence and necrotic fat, tendon and fascia along the wound margins. Using #15 blade nonviable tissue and fat was resected and rongeur. Rongeur was used to remove some nonviable 5th metatarsal bone, this was sent for pathology. Site was irrigated with 3000 liters of pulse irrigation. The wound was packed with saline gauze. He will be admitted to Hospitalist Service, IV antibiotics will be started, wound care orders were written. Will follow.
[2021-01-13] MEDS ORDERED: POTASSIUM CHLORIDE 10 MEQ SR TABLET PO ONE (09:00)
[2021-01-13] MEDS: VANCOMYCIN HCL 500 MG in D5W MINI-BAG PLUS 100 ML IV SCH ×2 (09:24→22:04)
[2021-01-13 10:00] VITALS: BP 170/80
[2021-01-13] MEDS ORDERED: **hydrALAZINE** 10 MG TAB PO ONE (10:45)
[2021-01-13] MEDS ORDERED: hydroCHLOROthiazide 12.5 MG CAPSULE PO ONE (10:45)
[2021-01-13] MEDS ORDERED: amLODIPine 5 MG TAB PO ONE (10:45)
[2021-01-13] MEDS: KCL 10MEQ/100ML SWI (KRUN) 10 MEQ in IV 1 EA IV SCH ×2 (10:49→12:01)
--- NOTE | 2021-01-13 13:19 | IPNPDOC ---
Text Note Date of Service The patient was seen on 01/13/21. NOTE Subjective: Patient seen and examined this morning at bedside. Tells me his feeling well. He denies any fevers or chills. There is no acute overnight events reported to me. He understands possible plan for going back to the OR for further debridement as well as waiting for the wound culture results. Trying to have breakfast. Very quickly agitated with staff went to me has a short temper and often loses it. Objective: Constitutional: Awake and alert, in no apparent distress ENT: Sclera are clear. Mucosa is moist. Respiratory: Lungs CTA bilaterally. No respiratory distress. Cardiovascular: Regular rate and rhythm Gastrointestinal: Abdomen is soft, non distended, non tender, BS present. Musculoskeletal: Left foot freshly dressed. Foot was not examined which I defer to the podiatry team. Neurologic: No focal neurological deficit. Mental Status: A&O x3, easily agitated and angry. Assessment/plan: Mr. Bradshaw is a 60 year old male admitted for medical management following a left foot wound debridement with podiatry. He tolerated the procedure well and remains on IV ABX pending culture and possible return to OR. # Cellulitis and abscess of left foot: Podiatry managing s/p I&D 01/12/21. Might go back to OR for further debridement. On IV vancomycin and Zosyn. Wound culture pending. BCx negative to date. CRP down trended. Leukocytosis resolves. # DM with diabetic neuropathy: ISS. Frequent Accu-Cheks. Hypoglycemic precautions. # Peripheral vascular disease: continue Lipitor. Started ASA. # Anemia of chronic disease: Stable. monitor. # CKD3: Close to baseline. Avoid nephrotoxins if possible. Continue to monitor. # Hypertension: Continue home meds, added HCTZ and coreg. Monitor and titrate. Hydralazine PRN. # Hyperlipidemia: Continue Lipitor # Nicotine addiction: Counseled to quit. Offer nicotine patch # DVT prophylaxis: Lovenox A Yousef Hospitalist Collin ARTHUR, I+O VSCollin, I+O Laboratory Tests 01/13/21 05:32 Vital Signs Date Time Temp Pulse Resp B/P (MAP) Pulse Ox O2 Delivery O2 Flow Rate FiO2 01/13/21 12:02 176/84 01/13/21 12:02 85 01/13/21 10:00 97.9 18 96 Room Air I&O- Last 24 Hours up to 6 AM 01/13/21 06:00 Intake Total 2265 ml Output Total 1030 ml Balance 1235 ml CURTIS POWELL MD Jan 13, 2021 13:19
--- NOTE | 2021-01-13 13:21 | IPN ---
PROGRESS NOTE DATE: 01/13/2021 SUBJECTIVE: Patient seen and examined at the bedside. He denies overnight complaints. States he does not have too much pain in his foot. VITAL SIGNS: He remained afebrile last night. LABORATORY DATA: White cell count has improved to 9.1. C-reactive protein (CRP) 16.2. Wound cultures show gram-positive cocci and gram-negative rods. Final cultures are pending. OBJECTIVE: LOWER EXTREMITY EXAMINATION: Erythema and edema are somewhat improved. There remains some necrotic tissue within the wound. No significant active purulence. ASSESSMENT: This is a 60-year-old diabetic male with severe left foot abscess. PLAN: Continue IV antibiotics. Arterial ultrasound ordered. Patient likely will require further debridement, possibly in the operating room (OR).
[2021-01-13 14:00] VITALS: BP 178/80
[2021-01-13] MEDS ORDERED: **hydrALAZINE HCL** 25 MG TAB PO ONE (17:25)
[2021-01-13] MEDS: ASPIRIN 81MG ENTERIC TABLET PO SCH (17:34)
[2021-01-13 18:00] VITALS: BP 155/73
[2021-01-13] MEDS: ATORVASTATIN 20 MG TAB PO SCH (20:13)
[2021-01-13] MEDS: CARVedilol 6.25 MG TAB PO SCH (20:13)
[2021-01-13 22:00] VITALS: BP 160/74
[2021-01-14] MEDS: PIPERACILLIN/TAZOBACTAM SOD 3.375 GM in D5W MINI-BAG PLUS 50 ML IV SCH ×5 (00:16→23:54)
[2021-01-14 06:00] VITALS: BP 148/69
[2021-01-14 07:06] LABS: HEMATOCRIT 32.8 % (42.0-52.0); HEMOGLOBIN 10.6 g/dl (13.5-17.5); MEAN CORPUSCULAR HEMOGLOBIN 28.8 pg (27.0-33.0); MEAN CORPUSCULAR HGB CONC 32.3 g/dl (32.0-36.5); MEAN CORPUSCULAR VOLUME 89.1 fl (80.0-96.0); PLATELET COUNT, AUTOMATED 258 10^3/uL (150-450); RED BLOOD COUNT 3.68 10^6/uL (4.30-6.10); WHITE BLOOD COUNT 7.6 10^3/uL (4.0-10.0)
[2021-01-14 07:38] LABS: C REACTIVE PROTEIN QUANTITATIV 7.75 MG/DL (0.00-0.30); CALCIUM LEVEL 7.6 MG/DL (8.5-10.1); CREATININE FOR GFR 1.86 MG/DL (0.70-1.30); GLOMERULAR FILTRATION RATE 39.8 (>56); MAGNESIUM LEVEL 2.1 MG/DL (1.8-2.4); POTASSIUM SERUM 3.3 MEQ/L (3.5-5.1)
[2021-01-14 08:20] VITALS: BP 163/78
[2021-01-14] MEDS ORDERED: POTASSIUM CHLORIDE 10 MEQ SR TABLET PO ONE (08:30)
[2021-01-14] MEDS: HumaLOG INSULIN (NovoLOG) PER UNIT SC SCH ×4 (08:33→21:31)
[2021-01-14] MEDS: PARoxetine 20MG TABLET PO SCH (08:34)
[2021-01-14] MEDS: ENOXAPARIN 40MG/0.4ML SYRINGE (J1650 PER 10MG) SC SCH (08:34)
[2021-01-14] MEDS: ASPIRIN 81MG ENTERIC TABLET PO SCH (08:34)
[2021-01-14] MEDS: OMEPRAZOLE 20 MG CAP PO SCH (08:35)
[2021-01-14] MEDS: hydroCHLOROthiazide 12.5 MG CAPSULE PO SCH (08:35)
[2021-01-14] MEDS: CARVedilol 6.25 MG TAB PO SCH ×2 (08:36→21:31)
[2021-01-14] MEDS: FUROSEMIDE 40 MG TAB PO SCH (08:36)
[2021-01-14 08:39] LABS: VANCOMYCIN LEVEL TROUGH 29.4 UG/ML (10.0-20.0)
[2021-01-14] MEDS ORDERED: VANCOMYCIN INTERMITTENT/PULSE DOSING BY CLINICAL PHARMACIST PER DOSING PROTOCOL XX SCH (09:40)
--- NOTE | 2021-01-14 12:32 | IPNPDOC ---
Text Note Date of Service The patient was seen on 01/14/21. NOTE Subjective: Patient seen and examined this morning at bedside. Feels the same as yesterday denies fevers or chills. No overnight events reported to me. Less agitated today. Refused to get his ultrasound done. Claiming that the collision technician was returned to him. He uses very foul language and was very belligerent when referencing the electromechanical technician. I am told he has an intermittently very angry mood towards all staff members. He often doesn't want to follow instructions or comply and I'm told he has a history of noncompliance with medical recommendations. Objective: Constitutional: Awake and alert, in no apparent distress ENT: Sclera are clear. Mucosa is moist. Respiratory: Lungs CTA bilaterally. No respiratory distress. Cardiovascular: Regular rate and rhythm Gastrointestinal: Abdomen is soft, non distended, non tender, BS present. Musculoskeletal: Left foot freshly dressed. Foot was not examined which I defer to the podiatry team. Neurologic: No focal neurological deficit. Mental Status: A&O x3, less agitated today Assessment/plan: Mr. Bradshaw is a 60 year old male admitted for medical management following a left foot wound debridement with podiatry. He tolerated the procedure well and remains on IV ABX pending culture and possible return to OR. # Cellulitis and abscess of left foot: Podiatry managing s/p I&D 01/12/21. Might go back to OR for further debridement. On IV vancomycin and Zosyn. Wound culture prelim results showing E coli and Staph aureus, awaiting sensitivities. BCx negative to date. CRP down trended. Leukocytosis resolved. # DM with diabetic neuropathy: ISS. Frequent Accu-Cheks. Hypoglycemic precautions. # Peripheral vascular disease: continue Lipitor. Started ASA. # Anemia of chronic disease: Stable. monitor. # CKD3: Close to baseline. Avoid nephrotoxins if possible. Continue to monitor. # Hypertension: Continue home meds, added HCTZ and coreg. Monitor and titrate. Hydralazine PRN. # Hyperlipidemia: Continue Lipitor # Nicotine addiction: Counseled to quit. Offer nicotine patch # DVT prophylaxis: Lovenox A Yousef Hospitalist VS,Collin, I+O VS, Collin, I+O Laboratory Tests 01/14/21 06:52 Vital Signs Date Time Temp Pulse Resp B/P (MAP) Pulse Ox O2 Delivery O2 Flow Rate FiO2 01/14/21 08:20 85 163/78 (106) 01/14/21 06:00 97.5 17 95 Room Air I&O- Last 24 Hours up to 6 AM 01/14/21 06:00 Intake Total 3290 ml Output Total 4350 ml Balance -1060 ml CURTIS POWELL MD Jan 14, 2021 12:32
--- NOTE | 2021-01-14 12:46 | IPN ---
PROGRESS NOTE DATE: 01/14/2021 Patient seen and examined. States he did not sleep well but denies any pain in his foot. Vital signs are reviewed. He has remained afebrile. LABORATORY DATA: White blood cell count is 7.6. CRP 7.75. Culture grew Escherichia (E) coli and Staphylococcus aureus. Anaerobic culture is pending. Pathology shows suggestions of osteomyelitis. LOWER EXTREMITY EXAMINATION: Erythema and edema improved. The wound has some persisting necrotic tissue as well as some purulence. ASSESSMENT: A 60-year-old diabetic male with abscess, status post incision and drainage. PLAN: Will bring him to the operating room for further debridement tomorrow. He is to be nothing by mouth at midnight.
[2021-01-14 14:00] VITALS: BP 160/79
[2021-01-14] MEDS ORDERED: ZOSYN 3.375GM VIAL (J2543) As Ordered ONE (17:16)
[2021-01-14] MEDS: ATORVASTATIN 20 MG TAB PO SCH (21:30)
[2021-01-14] MEDS: VANCOMYCIN HCL 750 MG, VIAL MATE ADAPTER 1 EACH in NS 250 ML IV SCH (21:31)
[2021-01-14] MEDS ORDERED: LOPERAMIDE 2 MG CAPLET PO PRN (21:35)
[2021-01-14] MEDS ORDERED: LOPERAMIDE 2 MG CAPLET PO ONE (21:35)
[2021-01-14 22:00] VITALS: BP 160/81
[2021-01-15] VITALS (8 sets, daily range): BP systolic 138–168; BP diastolic 67–80
[2021-01-15] MEDS: PIPERACILLIN/TAZOBACTAM SOD 3.375 GM in D5W MINI-BAG PLUS 50 ML IV SCH ×3 (05:15→17:52)
[2021-01-15 06:06] LABS: HEMATOCRIT 30.7 % (42.0-52.0); MEAN CORPUSCULAR HEMOGLOBIN 28.3 pg (27.0-33.0); MEAN CORPUSCULAR HGB CONC 32.6 g/dl (32.0-36.5); PLATELET COUNT, AUTOMATED 207 10^3/uL (150-450); RED BLOOD COUNT 3.53 10^6/uL (4.30-6.10); WHITE BLOOD COUNT 7.3 10^3/uL (4.0-10.0)
[2021-01-15 06:31] LABS: CALCIUM LEVEL 7.7 MG/DL (8.5-10.1); CREATININE FOR GFR 1.76 MG/DL (0.70-1.30); GLOMERULAR FILTRATION RATE 42.4 (>56); MAGNESIUM LEVEL 1.9 MG/DL (1.8-2.4); POTASSIUM SERUM 3.3 MEQ/L (3.5-5.1)
[2021-01-15] MEDS ORDERED: POTASSIUM CHLORIDE 10 MEQ SR TABLET PO ONE (08:15)
[2021-01-15] MEDS: HumaLOG INSULIN (NovoLOG) PER UNIT SC SCH ×5 (08:16→21:11)
[2021-01-15] MEDS: ASPIRIN 81MG ENTERIC TABLET PO SCH (08:17)
[2021-01-15] MEDS: CARVedilol 6.25 MG TAB PO SCH ×2 (08:19→21:10)
[2021-01-15] MEDS: PARoxetine 20MG TABLET PO SCH (08:19)
[2021-01-15] MEDS: FUROSEMIDE 40 MG TAB PO SCH (08:20)
[2021-01-15] MEDS: hydroCHLOROthiazide 12.5 MG CAPSULE PO SCH (08:20)
[2021-01-15] MEDS: OMEPRAZOLE 20 MG CAP PO SCH (08:20)
[2021-01-15] MEDS: ENOXAPARIN 40MG/0.4ML SYRINGE (J1650 PER 10MG) SC SCH (09:00)
[2021-01-15] MEDS: VANCOMYCIN HCL 750 MG, VIAL MATE ADAPTER 1 EACH in NS 250 ML IV SCH (09:09)
--- NOTE | 2021-01-15 09:52 | IPNPDOC ---
Text Note Date of Service The patient was seen on 01/15/21. NOTE Subjective: Patient seen and examined this morning at bedside. Feels the same as yesterday denies fevers or chills. No overnight events reported to me. Plan to go for second-degree been to the OR later today. Objective: Constitutional: Awake and alert, in no apparent distress ENT: Sclera are clear. Mucosa is moist. Respiratory: Lungs CTA bilaterally. No respiratory distress. Cardiovascular: Regular rate and rhythm Gastrointestinal: Abdomen is soft, non distended, non tender, BS present. Musculoskeletal: Left foot freshly dressed. Foot was not examined which I defer to the podiatry team. Neurologic: No focal neurological deficit. Mental Status: A&O x3 Assessment/plan: Mr. Bradshaw is a 60 year old male admitted for medical management following a left foot wound debridement with podiatry. He tolerated the procedure well and remains on IV ABX pending culture and return to OR for second debridement on 01/15/21. # Cellulitis and abscess of left foot: Podiatry managing s/p I&D 01/12/21. Back to OR for further debridement 01/15/21. On IV vancomycin and Zosyn initially, vancomycin discontinued on 01/15/21. Wound culture results showing E coli and Staph aureus. BCx negative to date. CRP down trended. Leukocytosis resolved. # DM with diabetic neuropathy: ISS. Frequent Accu-Cheks. Hypoglycemic precautions. # Peripheral vascular disease: continue Lipitor. Started ASA. # Anemia of chronic disease: Stable. monitor. # CKD3: Close to baseline. Avoid nephrotoxins if possible. Continue to monitor. # Hypertension: Continue home meds, added HCTZ and coreg. Monitor and titrate. Hydralazine PRN. # Hyperlipidemia: Continue Lipitor # Nicotine addiction: Counseled to quit. Offer nicotine patch # DVT prophylaxis: Lovenox A Yousef Hospitalist VS,Collin, I+O VS, Collin, I+O Laboratory Tests 01/15/21 05:50 Vital Signs Date Time Temp Pulse Resp B/P (MAP) Pulse Ox O2 Delivery O2 Flow Rate FiO2 01/15/21 08:19 82 166/89 01/15/21 06:00 97.1 17 98 Room Air I&O- Last 24 Hours up to 6 AM 01/15/21 06:00 Intake Total 3565 ml Output Total 1930 ml Balance 1635 ml CURTIS POWELL MD Jan 15, 2021 09:52
[2021-01-15] MEDS ORDERED: LIDOCAINE 1% MDV 20ML VIAL As Ordered ONE (10:26)
[2021-01-15] MEDS ORDERED: ZOSYN 3.375GM VIAL (J2543) As Ordered ONE (11:10)
[2021-01-15] MEDS ORDERED: fentaNYL 100 MCG/2 ML INJECTION (J3010) As Ordered ONE (11:18)
[2021-01-15] MEDS ORDERED: MIDAZOLAM INJ 2MG/2ML VIAL (J2250 PER 1MG) As Ordered ONE (11:18)
[2021-01-15] MEDS ORDERED: propofoL 200 MG/20 ML VIAL As Ordered ONE (11:25)
[2021-01-15] MEDS: BUPIVACAINE HCL 0.5% 10ML VIAL As Ordered ONE (11:45)
[2021-01-15] MEDS ORDERED: LR 1,000 ML IV SCH (12:25)
[2021-01-15] MEDS ORDERED: ONDANSETRON 4MG/2ML VIAL IV PRN (12:25)
[2021-01-15] MEDS ORDERED: oxyCODONE 5MG TAB PO PRN (12:25)
[2021-01-15] MEDS ORDERED: fentaNYL 100 MCG/2 ML INJECTION (J3010) IV PRN (12:25)
--- NOTE | 2021-01-15 13:01 | RO ---
OPERATIVE NOTE DATE OF OPERATION: 01/15/2021 PREOPERATIVE DIAGNOSIS: Left foot ulcer and infection. POSTOPERATIVE DIAGNOSIS: Left foot ulcer and infection. PROCEDURE: Left foot incision and drainage and wound debridement excisional including subcutaneous tissue, skin, tendon and bone. SURGEON: Darien Myles DPM CLINIQUE COUNTER MANAGER: None. ANESTHESIA: Monitored anesthesia care, preop injection of 15 mL of 1:1 mixture of 1% Lidocaine plain and 0.5% Marcaine plain. ESTIMATED BLOOD LOSS: 15 mL. MATERIALS: None. COMPLICATIONS: None. SPECIMEN: None. CONDITION: Stable. INDICATIONS: To Bradshaw is a 60-year-old man who underwent recent incision and drainage and noted to have continued necrotic tissue within the wound. Decision was made to bring him to the operating room for further wound debridement. Patient site and side were identified and marked in preoperative holding area, consent was reviewed and obtained. All risks, complications and alternatives to the procedure were explained to the patient in detail, all questions were answered. DESCRIPTION OF PROCEDURE: The patient was brought to the operating room and placed on the operating table in supine position. Monitored anesthesia care was delivered by the anesthesia team. Preop injection of 15 mL of 1:1 mixture of 1% Lidocaine plain and 0.5% Marcaine plain was injected into left foot. The left foot was prepped and draped in normal sterile fashion. No tourniquet was used during the procedure. Wound was inspected. There was necrotic tissue along the plantar and lateral wound. Wound was debrided using #15 blade and rongeur including subcutaneous tissue, skin, fascia, tendon and bone. Wound was improved until there was no further necrotic tissue noted. Site was irrigated with normal saline. Saline gauze dressing was applied. The patient will be readmitted to the floor for continue of antibiotics and monitoring, resume dressing changes tomorrow.
--- NOTE | 2021-01-15 17:49 | CR ---
CONSULTATION DATE: 01/15/2021 Asked to consult by hospitalist for evaluation of foot abscess with cellulitis. HISTORY OF PRESENT ILLNESS: Sheldon is a 60-year-old gentleman with a history of peripheral vascular disease, insulin-dependent diabetes, multiple previous hospitalization for right foot abscess and amputations due to osteomyelitis. The patient developed an ulcer about a week prior to admission. He continued working. He works at [employer] and wears steel boots. The ulcer progressively got worse. Went to see Dr. Myles the day of admission, who sent him to the hospital for incision and drainage (I and D). The patient had a debridement done on Tuesday, January 12, and again today, January 15, due to significant infection and necrotic tissue. He felt a low-grade fever and some chills at home but not documented since admission. He had no nausea, vomiting, or diarrhea. His white count was 11.3 on admission, currently 7.3. Wound cultures are positive for methicillin-sensitive Staphylococcus aureus (MSSA) and Escherichia (E) coli. Anaerobic culture is still pending. The patient was started on intravenous (IV) vancomycin and Zosyn. Vancomycin was discontinued. He is feeling better. Is anxious to go home. He did have some increased edema of the lower extremities. He takes furosemide 40 mg by mouth daily. MEDICAL HISTORY: Significant for: 1. Insulin-dependent diabetes. 2. Hyperlipidemia. 3. History of osteomyelitis and foot abscess of the right, status post two toe amputations. 4. Gastroesophageal reflux disease. 5. Hyperlipidemia. 6. Vitamin D deficiency. 7. Hypertension. SURGICAL HISTORY: Right foot 2nd and 4th toe amputations. FAMILY HISTORY: Nonrevealing. SOCIAL HISTORY: He smokes less than a pack of cigarettes a day. 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 He is . He was from his , but now is back with her. He denies alcohol or drug use. He drinks socially. REVIEW OF SYSTEMS: He has no nausea, vomiting, or diarrhea. No abdominal pain. No fever or chills. He has minimal pain ,after both debridements. He has significant lower extremity edema but no cough or shortness of breath. LABORATORY DATA: White count 7.3, hemoglobin 10, hematocrit 30.7, platelets 207. Sodium 141, potassium 3.3, chloride 108, bicarbonate 23, BUN 41, creatinine 1.76, glucose 290, calcium 7.7, magnesium 1.9. CRP 7.75, down from 23.1. Vancomycin trough was 29.4 on January 14. SARS-CoV-2, influenza A and B, and RSV are negative. Blood cultures, two sets, were negative. Wound culture had methicillin-sensitive Staphylococcus aureus (MSSA) and Escherichia (E) coli. IMAGING: Foot x-ray done on January 12 shows cellulitis, abscess, and possible osteomyelitis of the left lateral aspect of the foot with emphysematous changes and osteomyelitis probably of the 5th metatarsal bone. Review of operative note from Dr. Myles: On January 15 he had a left foot incision and drainage, debridement, excision of soft tissue, skin, tendon, and bone due to persistent necrosis of the wound. Pathology from January 13 shows marked acute inflammation and tissue necrosis with osteomyelitis of the 5th metatarsal. PHYSICAL EXAMINATION: He is a pleasant gentleman in no acute distress. Wants to go home tomorrow. Temperature is 97.7, pulse 85, respirations 14, blood pressure 142/80, oxygen saturation 98% on room air. HEART: Normal S1, S2, distant. No murmurs, rubs, or gallops. LUNGS: Clear. No wheezes, rales, or rhonchi. ABDOMEN: Obese, soft, nontender. EXTREMITIES: With +3 pitting edema bilaterally. Oropharynx is clear with no thrush. Poor dentition. NECK: Supple. No jugular venous distention (JVD). No bruits. BACK: No costovertebral angle (CVA) or lumbosacral tenderness EXTREMITIES: Right foot with absent toes 2nd and 4th and healed scars. Left foot with an open wound on the plantar aspect of the foot, measuring about 4 x 4 cm with an I and D extending along his left 5th metatarsal from the pinky toe all the way to the heel. The packing was not removed. There is surrounding erythema. There is bloody discharge on the dressing. There is a Charcot arthropathy deformity of the left foot. IMPRESSION: This is a 60-year-old gentleman with a history of insulin-dependent diabetes, multiple previous infections and amputations, who presented with a new ulceration of the left foot that developed into necrotizing infection of the left foot with polymicrobial infection, including methicillin-sensitive Staphylococcus aureus (MSSA), Escherichia (E) coli with acute osteomyelitis of the left 5th metatarsal. The patient has a very large wound. He has had two incision and drainages. He was anxious to go home, b the was told that he could not go home for at least another 3-4 days. PLAN: Agree with current antibiotics with IV Zosyn 3.375 grams every 6 hours. Discontinue IV vancomycin. The patient does not have methicillin-resistant Staphylococcus aureus (MRSA). Continue with anaerobic coverage. Patient probably would benefit from home IV antibiotics. He will be having a wound consultation with Dr. Lay tomorrow. Patient needs to be off work and probably apply for disability. I told him that we will send patient and family services (PFS) to discuss with him social security disability. He will be returning 61 years old this year, and his job is very physical, spending the whole day on his feet, and this wound is going to take quite a bit of time to heal. His most recent HbA1c was on 12/22/2020 and was 8, which was much better than his previous ones, but patient needs to continue to improve with diabetes compliance. He also has significant lower extremity edema and probably would benefit from some intravenous diuresis. ANA
[2021-01-15] MEDS: ATORVASTATIN 20 MG TAB PO SCH (21:10)
[2021-01-16] MEDS: PIPERACILLIN/TAZOBACTAM SOD 3.375 GM in D5W MINI-BAG PLUS 50 ML IV SCH ×5 (00:18→23:31)
[2021-01-16 02:00] VITALS: BP 142/58
[2021-01-16 06:00] VITALS: BP 143/68
[2021-01-16 06:10] LABS: HEMATOCRIT 28.9 % (42.0-52.0); HEMOGLOBIN 9.4 g/dl (13.5-17.5); MEAN CORPUSCULAR HEMOGLOBIN 28.9 pg (27.0-33.0); MEAN CORPUSCULAR HGB CONC 32.5 g/dl (32.0-36.5); MEAN CORPUSCULAR VOLUME 88.9 fl (80.0-96.0); PLATELET COUNT, AUTOMATED 188 10^3/uL (150-450); RED BLOOD COUNT 3.25 10^6/uL (4.30-6.10); WHITE BLOOD COUNT 7.6 10^3/uL (4.0-10.0)
[2021-01-16 06:32] LABS: C REACTIVE PROTEIN QUANTITATIV 2.04 MG/DL (0.00-0.30); CALCIUM LEVEL 7.4 MG/DL (8.5-10.1); CREATININE FOR GFR 1.98 MG/DL (0.70-1.30); MAGNESIUM LEVEL 1.8 MG/DL (1.8-2.4); POTASSIUM SERUM 3.6 MEQ/L (3.5-5.1)
[2021-01-16] MEDS: HumaLOG INSULIN (NovoLOG) PER UNIT SC SCH ×4 (08:33→20:52)
[2021-01-16] MEDS: ENOXAPARIN 40MG/0.4ML SYRINGE (J1650 PER 10MG) SC SCH (08:33)
[2021-01-16] MEDS: CARVedilol 6.25 MG TAB PO SCH ×2 (08:34→20:54)
[2021-01-16] MEDS: PARoxetine 20MG TABLET PO SCH (08:34)
[2021-01-16] MEDS: OMEPRAZOLE 20 MG CAP PO SCH (08:34)
[2021-01-16] MEDS: ASPIRIN 81MG ENTERIC TABLET PO SCH (08:34)
[2021-01-16] MEDS: FUROSEMIDE 40 MG TAB PO SCH (08:34)
[2021-01-16] MEDS: hydroCHLOROthiazide 12.5 MG CAPSULE PO SCH (08:34)
[2021-01-16 10:00] VITALS: BP 145/68
--- NOTE | 2021-01-16 12:42 | IPNPDOC ---
Text Note Date of Service The patient was seen on 01/16/21. NOTE Subjective: Patient seen and examined this morning at bedside. Went to the OR yesterday for second debridement. Feels the same as yesterday denies fevers or chills. No overnight events reported to me. Has an appointment with wound care this afternoon by telemedicine Objective: Constitutional: Awake and alert, in no apparent distress ENT: Sclera are clear. Mucosa is moist. Respiratory: Lungs CTA bilaterally. No respiratory distress. Cardiovascular: Regular rate and rhythm Gastrointestinal: Abdomen is soft, non distended, non tender, BS present. Musculoskeletal: Left foot freshly dressed. Foot was not examined which I defer to the podiatry team. Neurologic: No focal neurological deficit. Mental Status: A&O x3 Assessment/plan: Mr. Bradshaw is a 60 year old male admitted for medical management following a left foot wound debridement with podiatry. He tolerated the procedure well and remains on IV ABX pending culture and return to OR for second debridement on . # Cellulitis and abscess of left foot: Podiatry managing s/p I&D 01/12/21. Went back to OR for further debridement 01/15/21. On IV vancomycin and Zosyn initially, vancomycin discontinued on 01/15/21. Wound culture results showing E coli and Staph aureus. BCx negative to date. CRP down trended. Leukocytosis resolved. Has an appointment later this afternoon with wound care by video conference. # DM with diabetic neuropathy: ISS. Frequent Accu-Cheks. Hypoglycemic precautions. # Peripheral vascular disease: continue Lipitor. Started ASA. # Anemia of chronic disease: Stable. monitor. # CKD3: Close to baseline. Avoid nephrotoxins if possible. Continue to monitor. # Hypertension: Continue home meds, added HCTZ and coreg. Monitor and titrate. Hydralazine PRN. # Hyperlipidemia: Continue Lipitor # Nicotine addiction: Counseled to quit. Offer nicotine patch # DVT prophylaxis: Lovenox A Yousef Hospitalist Collin ARTHUR, I+O VSCollin, I+O Laboratory Tests 01/16/21 05:32 Vital Signs Date Time Temp Pulse Resp B/P (MAP) Pulse Ox O2 Delivery O2 Flow Rate FiO2 01/16/21 10:00 97.6 79 16 145/68 (93) 97 Room Air 01/15/21 12:20 12.0 I&O- Last 24 Hours up to 6 AM 01/16/21 06:00 Intake Total 1530 ml Output Total 865 ml Balance 665 ml CURTIS POWELL MD Jan 16, 2021 12:42
--- NOTE | 2021-01-16 13:01 | REP ---
INDICATION: diabetic ulcer, evaluate bloodflow COMPARISON: 03/10/2020 TECHNIQUE: Real time marroquin scale and color Doppler evaluation of the bilateral lower extremity arterial vasculature using linear high frequency transducer. FINDINGS: Right lower extremity demonstrates moderate atheromatous plaquing and essentially normal triphasic and biphasic arterial wave patterns with increased velocities which may be responds to underlying pathologic process. There is no evidence for stenosis or occlusion. Left lower extremity demonstrates moderate atheromatous plaquing and triphasic/biphasic wave patterns to the level of the distal femoral artery followed by monophasic wave patterns from the popliteal artery distally with focal area of stenosis again suggested at the popliteal/tibioperoneal trunk. There also appears to be a significant decrease in velocity from the proximal to distal anterior tibial artery but without obvious discernible focal area of stenosis. Peak systolic velocities (cm/sec) Common femoral artery: Right 137; Left 184 Profunda femoris: Right 239; Left 277 SFA (proximal): Right 196; Left 178 SFA (mid): Right 134; Left 128 SFA (distal): Right 87; Left 137 Popliteal artery: Right 105; Left 104 SALVADOR (prox.): Right 104; Left 131 Tibioperoneal trunk: Right 137; Left 300+ HOUSING MANAGER (prox.): Right 135; Left 281 HOUSING MANAGER (distal): Right 44; Left 128 SALVADOR (distal): Right 68; Left 32 IMPRESSION: 1. Atheromatous changes as described and detailed above. 2. Findings suggest continued area of stenosis through the left popliteal/tibioperoneal trunk and possible stenosis along the anterior tibial artery. <Electronically signed by Simon Marrero > 01/16/21 1257
[2021-01-16 14:00] VITALS: BP 163/88
--- NOTE | 2021-01-16 17:10 | CR ---
ADVANCED WOUND CARE CONSULTATION This consult is via Telemedicine. DATE: 01/16/2021 REQUESTING PHYSICIAN: Dr. Myles REASON FOR CONSULTATION: Left diabetic foot ulcer. HISTORY OF PRESENT ILLNESS: A 60-year-old admitted for a large abscess associated with necrotic tissue involving the plantar aspect of the left mid foot. This wound was appropriately taken to the Operating Room and dbrided on two separate occasions. I have been asked to evaluate via telemedicine and give dressing change and treatment suggestions. Wound care telemedicine provides a visual assessment of a wound without the benefit of physical examination. It can assist with establishing a diagnosis and etiology. This allows for an initial treatment plan. As wounds often change, it may be necessary to modify the original care. Our recommendation is periodic wound reassessment to monitor treatment. Failure to comply may result in a non-healing wound, possible complications and/or a poor outcome. The recommendations given will serve as a treatment option. As I will not be following this patient, this care plan will require the attending physician to give and sign the orders. Upon discharge, outpatient follow up can be scheduled at our [facility]. Poorly controlled neuropathic diabetic male with a hemoglobin A1c of 8.0 and a large wound involving the plantar aspect, mid portion of the left foot. This wound measures 11.5 cm by 6.9 cm with a wound depth of 1.2 cm. The central portion of the wound shows exposed plantar fascia. The remaining wound base shows areas of fibrin slough and ischemic subcutaneous tissue. There is no purulent drainage seen at this time. There is no edema involving the left lower extremity. An arterial ultrasound has been obtained which is consistent with peripheral vascular disease and occlusions at the trifurcation and poor runoff distally. TREATMENT RECOMMENDATION: Consult with Dr. Doll, Interventional Radiology for angioplasty to reestablish arterial flow to the lower extremity. Without this step, the prognosis is poor, and the patient may result in an amputation of the lower extremity. In terms of wound care, clean the wound with Vashe Wound Cleanser soaked in a 4 x 4 and applying it to the wound for 10 minutes. Remove this and wash with saline. Hydrofera Blue Classic should be cut to the side of the wound moistened with saline, wrung out and applied to the wound. This is then covered with an extra absorb or an Optilock dressing. This can be secured with a Kerlix or cling avoiding any tape to the skin. The patient should be completely offloaded and at bed rest, not ambulating and no physical therapy at this time. A heel flow boot is also important to avoid any potential further trauma/and or pressure injuries to the heel itself. The patient's diet should be supplemented with Nav and Glucerna. Reconsult as necessary. MTDD
[2021-01-16] MEDS: ATORVASTATIN 20 MG TAB PO SCH (20:55)
[2021-01-16 22:00] VITALS: BP 167/83
[2021-01-17 06:00] VITALS: BP 156/85
[2021-01-17] MEDS: PIPERACILLIN/TAZOBACTAM SOD 3.375 GM in D5W MINI-BAG PLUS 50 ML IV SCH ×4 (06:12→23:45)
[2021-01-17 06:16] LABS: HEMATOCRIT 27.6 % (42.0-52.0); HEMOGLOBIN 8.9 g/dl (13.5-17.5); MEAN CORPUSCULAR HEMOGLOBIN 28.5 pg (27.0-33.0); MEAN CORPUSCULAR HGB CONC 32.2 g/dl (32.0-36.5); MEAN CORPUSCULAR VOLUME 88.5 fl (80.0-96.0); PLATELET COUNT, AUTOMATED 147 10^3/uL (150-450); RED BLOOD COUNT 3.12 10^6/uL (4.30-6.10); WHITE BLOOD COUNT 6.6 10^3/uL (4.0-10.0)
[2021-01-17 06:40] LABS: CALCIUM LEVEL 7.1 MG/DL (8.5-10.1); CREATININE FOR GFR 1.92 MG/DL (0.70-1.30); GLOMERULAR FILTRATION RATE 38.4 (>56); MAGNESIUM LEVEL 1.8 MG/DL (1.8-2.4); POTASSIUM SERUM 3.4 MEQ/L (3.5-5.1)
[2021-01-17] MEDS: HumaLOG INSULIN (NovoLOG) PER UNIT SC SCH ×4 (08:07→20:39)
[2021-01-17] MEDS: hydroCHLOROthiazide 12.5 MG CAPSULE PO SCH (08:07)
[2021-01-17] MEDS: FUROSEMIDE 40 MG TAB PO SCH (08:07)
[2021-01-17] MEDS: CARVedilol 6.25 MG TAB PO SCH ×2 (08:08→20:40)
[2021-01-17] MEDS: PARoxetine 20MG TABLET PO SCH (08:08)
[2021-01-17] MEDS: OMEPRAZOLE 20 MG CAP PO SCH (08:08)
[2021-01-17] MEDS: ENOXAPARIN 40MG/0.4ML SYRINGE (J1650 PER 10MG) SC SCH (08:08)
[2021-01-17] MEDS: ASPIRIN 81MG ENTERIC TABLET PO SCH (08:08)
--- NOTE | 2021-01-17 12:14 | IPN ---
PROGRESS NOTE DATE: 01/17/2021 SUBJECTIVE: Sheldon is seen in [facility]. He has osteomyelitis of his left foot status post incision and drainage. Dr. Hernandez 01/13 and he has been seen by Dr. Moran and also by Dr. Lay. Dr. Lay is concerned about vascular insufficiency to that left lower leg and a noninvasive arterial study was done that suggested continued area stenosis through the left popliteal tibioperoneal trunk, possible stenosis involving the anterior tibial artery, and recommendation was to consult interventional radiology. OBJECTIVE: VITAL SIGNS: Afebrile. Vital signs stable. LUNGS: Clear. HEART: Regular rhythm. ABDOMEN: Obese and nontender with no masses. EXTREMITIES: No peripheral edema. His left foot is dressed. LABORATORY DATA: Sodium 143, potassium 3.4, BUN 38, creatinine 1.92, glucose 391. White count 6.6, hemoglobin 9, platelets 147,000. IMPRESSION AND PLAN: 1. Cellulitis/abscess left foot status post incision and drainage. Culture grew out methicillin-sensitive Staph and Escherichia coli (E. coli) currently on Zosyn as monotherapy. 2. Peripheral arterial disease. Interventional radiology has been consulted. 3. Diabetes with neuropathy. Sliding scale insulin with coverage. 4. Hyperlipidemia. Continue atorvastatin. 5. Chronic kidney disease. Avoid nephrotoxins. Monitor daily. 6. Hypertensive heart disease. Continue current medications. Potassium is low so we will add supplemental potassium and continue his aspirin. 7. Tobacco abuse. The importance of smoking cessation was discussed.
[2021-01-17] MEDS: POTASSIUM CHLORIDE 10 MEQ SR TABLET PO SCH ×2 (12:34→20:41)
[2021-01-17] MEDS: ATORVASTATIN 20 MG TAB PO SCH (20:41)
[2021-01-17 22:00] VITALS: BP 168/80
[2021-01-18] MEDS: PIPERACILLIN/TAZOBACTAM SOD 3.375 GM in D5W MINI-BAG PLUS 50 ML IV SCH ×3 (05:44→17:49)
[2021-01-18 06:00] VITALS: BP 160/88
[2021-01-18 06:17] LABS: MEAN CORPUSCULAR HEMOGLOBIN 28.5 pg (27.0-33.0); MEAN CORPUSCULAR HGB CONC 32.3 g/dl (32.0-36.5); MEAN CORPUSCULAR VOLUME 88.3 fl (80.0-96.0); PLATELET COUNT, AUTOMATED 192 10^3/uL (150-450); RED BLOOD COUNT 3.51 10^6/uL (4.30-6.10); WHITE BLOOD COUNT 8.4 10^3/uL (4.0-10.0)
[2021-01-18 06:35] LABS: CALCIUM LEVEL 7.7 MG/DL (8.5-10.1); CREATININE FOR GFR 1.75 MG/DL (0.70-1.30); GLOMERULAR FILTRATION RATE 42.7 (>56); MAGNESIUM LEVEL 1.9 MG/DL (1.8-2.4); POTASSIUM SERUM 3.5 MEQ/L (3.5-5.1)
[2021-01-18] MEDS: ENOXAPARIN 40MG/0.4ML SYRINGE (J1650 PER 10MG) SC SCH (08:02)
[2021-01-18] MEDS: HumaLOG INSULIN (NovoLOG) PER UNIT SC SCH ×4 (08:04→21:12)
[2021-01-18] MEDS: ASPIRIN 81MG ENTERIC TABLET PO SCH (08:04)
[2021-01-18] MEDS: hydroCHLOROthiazide 12.5 MG CAPSULE PO SCH (08:04)
[2021-01-18] MEDS: CARVedilol 6.25 MG TAB PO SCH ×2 (08:06→21:13)
[2021-01-18] MEDS: FUROSEMIDE 40 MG TAB PO SCH (08:07)
[2021-01-18] MEDS: PARoxetine 20MG TABLET PO SCH (08:07)
[2021-01-18] MEDS: OMEPRAZOLE 20 MG CAP PO SCH (08:07)
[2021-01-18] MEDS: POTASSIUM CHLORIDE 10 MEQ SR TABLET PO SCH ×2 (08:08→21:12)
--- NOTE | 2021-01-18 11:08 | IPN ---
PROGRESS NOTE DATE: 01/18/2021 SUBJECTIVE: To is seen on [facility]. He is doing well with no fever or chills. OBJECTIVE: VITAL SIGNS: Stable. LUNGS: Clear. HEART: Regular rhythm. ABDOMEN: Soft and nontender. EXTREMITIES: His left foot is dressed. LABORATORY DATA: CBC unchanged. Electrolytes unremarkable. Creatinine is down to 1.75. IMPRESSION AND PLAN: 1. Cellulitis/abscess left foot status post incision and drainage. He grew out methicillin-sensitive Staph, as well as Escherichia coli (E. coli). He is on Zosyn currently day #6 of Zosyn. 2. Peripheral arterial disease. Interventional radiology has been consulted. I doubt that he will be seen before Tuesday. 3. Diabetes with neuropathy. Continue sliding scale coverage. The rest of his medical problems are stable at this time.
[2021-01-18 14:00] VITALS: BP 137/67
[2021-01-18] MEDS: ATORVASTATIN 20 MG TAB PO SCH (21:12)
[2021-01-18 22:00] VITALS: BP 166/85
[2021-01-19] MEDS: PIPERACILLIN/TAZOBACTAM SOD 3.375 GM in D5W MINI-BAG PLUS 50 ML IV SCH ×4 (00:27→18:25)
[2021-01-19 06:00] VITALS: BP 167/80
[2021-01-19 06:04] LABS: HEMATOCRIT 28.2 % (42.0-52.0); HEMOGLOBIN 9.2 g/dl (13.5-17.5); MEAN CORPUSCULAR HEMOGLOBIN 28.7 pg (27.0-33.0); MEAN CORPUSCULAR HGB CONC 32.6 g/dl (32.0-36.5); MEAN CORPUSCULAR VOLUME 87.9 fl (80.0-96.0); PLATELET COUNT, AUTOMATED 186 10^3/uL (150-450); RED BLOOD COUNT 3.21 10^6/uL (4.30-6.10); WHITE BLOOD COUNT 8.2 10^3/uL (4.0-10.0)
[2021-01-19 06:25] LABS: C REACTIVE PROTEIN QUANTITATIV 0.93 MG/DL (0.00-0.30); CALCIUM LEVEL 7.5 MG/DL (8.5-10.1); CREATININE FOR GFR 1.72 MG/DL (0.70-1.30); GLOMERULAR FILTRATION RATE 43.5 (>56); MAGNESIUM LEVEL 1.8 MG/DL (1.8-2.4); POTASSIUM SERUM 3.5 MEQ/L (3.5-5.1)
[2021-01-19] MEDS: HumaLOG INSULIN (NovoLOG) PER UNIT SC SCH ×4 (08:21→21:00)
[2021-01-19] MEDS: ENOXAPARIN 40MG/0.4ML SYRINGE (J1650 PER 10MG) SC SCH (08:22)
[2021-01-19] MEDS: hydroCHLOROthiazide 12.5 MG CAPSULE PO SCH (08:22)
[2021-01-19] MEDS: ASPIRIN 81MG ENTERIC TABLET PO SCH (08:22)
[2021-01-19] MEDS: PARoxetine 20MG TABLET PO SCH (08:23)
[2021-01-19] MEDS: POTASSIUM CHLORIDE 10 MEQ SR TABLET PO SCH ×2 (08:23→21:10)
[2021-01-19] MEDS: FUROSEMIDE 40 MG TAB PO SCH (08:23)
[2021-01-19] MEDS: CARVedilol 6.25 MG TAB PO SCH ×2 (08:23→21:10)
[2021-01-19] MEDS: OMEPRAZOLE 20 MG CAP PO SCH (08:23)
--- NOTE | 2021-01-19 12:09 | IPN ---
PROGRESS NOTE DATE: 01/19/2021 SUBJECTIVE: [facility] We are waiting for him to be seen by interventional radiology. PHYSICAL EXAMINATION: Afebrile. Vital signs stable. LUNGS: Clear. HEART: Regular rhythm. ABDOMEN: Soft, nontender. EXTREMITIES: Left lower extremity is dressed. ASSESSMENT AND PLAN: 1. Left lower extremity status post incision and drainage. He is on day #7 of Zosyn. 2. Peripheral arterial disease. Interventional radiology has been consulted. 3. Diabetes and neuropathy. Continue sliding scale insulin. 4. Hypertension. Blood pressure is well-controlled. 5. Hyperlipidemia. Continue atorvastatin 40 mg daily. 6. History of depression. Continue with Paxil 20 mg daily.
[2021-01-19 14:00] VITALS: BP 156/69
[2021-01-19 20:15] VITALS: BP 164/79
[2021-01-19] MEDS: ATORVASTATIN 20 MG TAB PO SCH (21:09)
[2021-01-20] MEDS: PIPERACILLIN/TAZOBACTAM SOD 3.375 GM in D5W MINI-BAG PLUS 50 ML IV SCH ×4 (00:30→18:02)
[2021-01-20 05:43] VITALS: BP 180/92
[2021-01-20 06:15] VITALS: BP 154/90
[2021-01-20] MEDS: ENOXAPARIN 40MG/0.4ML SYRINGE (J1650 PER 10MG) SC SCH (09:00)
[2021-01-20] MEDS: HumaLOG INSULIN (NovoLOG) PER UNIT SC SCH ×4 (09:05→20:09)
--- NOTE | 2021-01-20 10:11 | DSES ---
DISCHARGE SUMMARY DATE OF ADMISSION: 01/12/2021 DATE OF DISCHARGE: 01/20/2021 PRINCIPAL DIAGNOSES: 1. Cellulitis/abscess left foot status post incision and drainage; growing out methicillin-sensitive Staphylococcus and Escherichia coli (E. coli). 2. Peripheral arterial disease left lower extremity. 3. Diabetes with neuropathy. 4. Hyperlipidemia. 5. Chronic kidney disease. 6. Hypertensive heart disease. 7. Tobacco abuse. HISTORY: The patient was admitted with left lower extremity cellulitis/abscess. For details, please see history and physical from admission. HOSPITAL COURSE: The patient was admitted to a medical bed. He underwent incision and drainage on 01/12. Seen by Dr. Moran from infectious disease, and antibiotics were initiated. Dr. Lay saw him from the wound center and recommended vascular surgery evaluation. I spoke to Dr. Doll today and she will take a look at the patient today, but anticipates further workup as an outpatient. Clinically, he responded to the incision and drainage and the antibiotic treatment. He was initially on Zosyn and vancomycin, but after the cultures came back he was maintained on Zosyn. Of note, I had a communication going back and forth with Dr. Moran about whether the patient needs home IV antibiotics or whether he will get by on oral antibiotics; she will get back to me about this. DISCHARGE PHYSICAL EXAMINATION: VITAL SIGNS: On the date of tentative discharge, his BP is 154/90, afebrile, 97% O2 saturation. LUNGS: Clear. HEART: Regular rate and rhythm. ABDOMEN: Soft and nontender with no peripheral edema. EXTREMITIES: The left lower extremity is dressed. LABORATORY DATA: He was a little frustrated about still being in the hospital. He refused having labs today. Yesterday his white count was 8.2, hemoglobin 9.2, platelets 188,000. Sodium 141, potassium 3.5, BUN 33, and creatinine 1.7, which is stable. Glucose 383. Blood sugars have generally been 200 to 300. DISCHARGE DISPOSITION: I am hoping he gets discharged today. Waiting for Dr. Moran to see him to sign out home IV antibiotic (in which case he will need a peripherally inserted central catheter (PICC) line) versus oral antibiotic. DISCHARGE MEDICATIONS: Other than the antibiotics, he will be discharged home on 1. Amlodipine 5 mg b.i.d. 2. Aspirin 81 mg daily. 3. Atorvastatin 40 mg daily. 4. Jardiance 25 mg daily. 5. Vitamin D 50,000 units weekly. 6. Fenofibrate 160 mg daily. 7. Furosemide 40 mg daily. 8. Glyburide 5 mg b.i.d. 9. Toujeo glargine insulin 50 units at bedtime. 10. Omeprazole 20 mg daily. 11. Paroxetine 20 mg daily. Antibiotic on discharge is still undetermined. DISCHARGE FOLLOW-UP: He will follow-up with his primary care provider in a week. DISCHARGE DIET: No added salt consistent carbohydrate date. DISCHARGE ACTIVITY: Nonweightbearing, which has been as problem as an outpatient. He is noncompliant with that both in the hospital and prior to admission. We discussed this with him that he needs to not bear weight on that foot.
[2021-01-20] MEDS: PARoxetine 20MG TABLET PO SCH (10:18)
[2021-01-20] MEDS: hydroCHLOROthiazide 12.5 MG CAPSULE PO SCH (10:18)
[2021-01-20] MEDS: ASPIRIN 81MG ENTERIC TABLET PO SCH (10:18)
[2021-01-20] MEDS: POTASSIUM CHLORIDE 10 MEQ SR TABLET PO SCH ×2 (10:18→20:09)
[2021-01-20] MEDS: OMEPRAZOLE 20 MG CAP PO SCH (10:19)
[2021-01-20] MEDS: FUROSEMIDE 40 MG TAB PO SCH (10:19)
[2021-01-20] MEDS: CARVedilol 6.25 MG TAB PO SCH ×2 (10:19→20:10)
[2021-01-20 11:30] LABS: HEMATOCRIT 29.2 % (42.0-52.0); HEMOGLOBIN 9.7 g/dl (13.5-17.5); MEAN CORPUSCULAR HGB CONC 33.2 g/dl (32.0-36.5); MEAN CORPUSCULAR VOLUME 87.4 fl (80.0-96.0); PLATELET COUNT, AUTOMATED 198 10^3/uL (150-450); RED BLOOD COUNT 3.34 10^6/uL (4.30-6.10); WHITE BLOOD COUNT 9.2 10^3/uL (4.0-10.0)
[2021-01-20 12:06] LABS: CALCIUM LEVEL 8.3 MG/DL (8.5-10.1); CREATININE FOR GFR 1.53 MG/DL (0.70-1.30); GLOMERULAR FILTRATION RATE 49.8 (>56); POTASSIUM SERUM 3.7 MEQ/L (3.5-5.1)
[2021-01-20 14:00] VITALS: BP 160/80
[2021-01-20 14:21] LABS: INR 1.05; PROTHROMBIN TIME 13.9 SECONDS (12.5-14.3)
--- NOTE | 2021-01-20 14:37 | IRINPTCON ---
[facility] IR Inpatient Consultation IR Inpatient Consultation DATE: Jan 20, 2021 REASON FOR CONSULTATION/CHIEF COMPLAINT: Left lower extremity wound. HISTORY OF PRESENT ILLNESS: 60-year-old diabetic, hypertensive, smoker male, with infected left lower extremity wound and cellulitis. Patient reports this started out as a quarter-sized nontender hole on the lateral aspect of his midfoot. He reports a prior right lower extremity wound which was way bigger and took several months to heal. He reports he had an appointment booked with Dr. Myles for March, however once he started getting fevers and chills and the foul smell from the wound, he got worried and asked to be seen immediately. He was then seen by Dr. Myles who admitted him and proceeded to incision and drainage. He denies prior left lower extremity angiography and/or intervention and/or bypass. He denies prior left lower extremity cold leg, arterial thrombosis, gangrene or amputation. Patient does report prior right lower extremity ulcers and reports he had angiography with Dr. Cain in the past, but he doesn't know what was done. Patient is weightbearing. He denies intermittent claudication or rest pain. He does report left lower extremity swelling. Patient denies chest pain, orthopnea, shortness of breath or paroxysmal nocturnal dyspnea. He denies prior [place] or stroke. He denies cardiac stents. Patient reports his PCP has referred him to vascular surgery at [facility] but he does not have an appointment booked with them. ALLERGIES: Please see below. HOME MEDICATIONS: Please see below. PAST MEDICAL HISTORY: Diabetes Hyperlipidemia Osteomyelitis of right foot, 2 toe amputations GERD Vitamin D deficiency Hypertension PAST SURGICAL HISTORY: Prior right lower extremity angiography Left foot incision and drainage FAMILY HISTORY: Noncontributory. SOCIAL HISTORY: Active smoker. Will not admit how many cigarettes a day. Denies alcohol or drugs. REVIEW OF SYSTEMS: Otherwise negative. PHYSICAL EXAMINATION: VITAL SIGNS: Please see below. Note blood pressure 180/92 GENERAL APPEARANCE: Appears well. Comfortable at rest. HEENT: No scleral icterus. RESPIRATORY:Normal breathing at rest. CARDIOVASCULAR: Normal rate. ABDOMEN: Soft nontender. EXTREMITIES: Left lower extremity: Foot is warm and edematous. Edema 2+. warm to touch. Femoral pulse 1+ popliteal pulse 1+ DP/PT nonpalpable. sensation intact, motor 5 out of 5. Extensive incision and drainage over the lateral and plantar aspect of the foot. Right lower extremity: Edema + warm to touch. Skin color normal. Femoral pulse 1+ popliteal pulses 1+ DP 1+ motor 5 out of 5 sensation intact. NEUROLOGICAL: Alert and oriented. PSYCHIATRIC: Appropriate to circumstance. LABORATORY DATA: 01/20/2021 hemoglobin 9.7 hematocrit 29.2 WBC 9.2 platelets 198. Sodium 140 potassium 3.7 BUN 28 creatinine 1.53 GFR 49.8 fasting glucose 325 hemoglobin A1c 8.0 Imaging: I personally reviewed the bilateral lower extremity arterial ultrasound performed 01/16/21. Patent SFA and popliteal artery. Focal stenosis in the tibia peroneal trunk. Patent anterior tibial artery with atherosclerotic disease. Patent posterior tibial artery. I personally reviewed the angiogram of the right lower extremity performed by Dr. Cain in 2017. Right lower extremity demonstrates good inflow and outflow without significant stenosis. ASSESSMENT/PLAN: 60-year-old male, active smoker with poorly controlled diabetes and poorly controlled hypertension, is referred for further left lower extremity arterial evaluation and intervention. I agree patient would benefit from left lower extremity angiography, angioplasty and/or stenting as needed. We discussed the risks and benefits of the procedure and patient agreed to proceed. We have scheduled the patient for outpatient left lower extremity angiography and intervention. I spent 30 minutes reviewing patient's records, imaging and in consultation with the patient. Thank you for this referral. Cc Dr. Ry Mcbride Cc Dr. Lay Cc Dr. Myles Allergies Coded Allergies: metformin (Verified Adverse Reaction, Mild, DIARRHEA, 01/08/21) Home Medications Scheduled Amlodipine Besylate (Amlodipine Besylate), 5 MG PO BID, (Reported) Aspirin (Aspirin EC), 81 MG PO DAILY, (Reported) Atorvastatin Calcium (Atorvastatin Calcium), 40 MG PO QHS, (Reported) Doxycycline Monohydrate (Doxycycline Monohydrate), 100 MG PO BID, (Reported) Empagliflozin (Jardiance), 25 MG PO DAILY, (Reported) Ergocalciferol (Vitamin D2) (Drisdol), 50,000 UNITS PO QWEEK, (Reported) Fenofibrate (Fenofibrate), 160 MG PO DAILY, (Reported) Furosemide (Furosemide), 40 MG PO DAILY, (Reported) Glyburide (Glyburide), 5 MG PO BID, (Reported) Insulin Glargine,Hum.rec.anlog (Simon Hinojosa), 50 UNITS SC QHS, (Reported) Omeprazole (Omeprazole), 20 MG PO DAILY, (Reported) Paroxetine HCl (Paroxetine HCl), 20 MG PO DAILY, (Reported) VS, I&O, 24H, Fishbone Vital Signs/I&O Vital Signs Date Time Temp Pulse Resp B/P (MAP) Pulse Ox O2 Delivery O2 Flow Rate FiO2 01/20/21 06:15 154/90 (111) 01/20/21 05:43 96.5 95 20 97 Room Air 01/15/21 12:20 12.0 I&O- Last 24 Hours up to 6 AM 01/20/21 06:00 Intake Total 1790 ml Output Total 3450 ml Balance -1660 ml Laboratory Data 24H LABS Laboratory Tests 2 01/19/21 16:58: Bedside Glucose (Misc Panel) 253H 01/20/21 08:43: Bedside Glucose (Misc Panel) 338H 01/20/21 11:17: Nucleated Red Blood Cells % (auto) 0.0, Anion Gap 6L, Glomerular Filtration Rate 49.8L, Calcium Level 8.3L 01/20/21 13:38: CBC/BMP Laboratory Tests 01/20/21 11:17 Microbiology Microbiology 01/12/21 Anaerobic Culture - Final, Complete Eubacterium Lentum 01/12/21 Gram Stain - Final, Complete 01/12/21 Wound Culture - Final, Complete Escherichia Coli Staphylococcus Aureus Gemella Sanguinis 01/12/21 Blood Culture - Final, Complete NO GROWTH AFTER 5 DAYS 01/12/21 Blood Culture - Final, Complete NO GROWTH AFTER 5 DAYS NISHANT MEJIA MD Jan 20, 2021 14:37
[2021-01-20] MEDS ORDERED: LIDOCAINE 1% MDV 20ML VIAL As Ordered ONE (15:08)
--- NOTE | 2021-01-20 17:01 | REP ---
INDICATION: osteomyelitis. COMPARISON: None. TECHNIQUE: The procedure was performed under the direct supervision of Dr. Babcock. The risks and benefits of the procedure were explained to the patient and informed consent was obtained. The left basilic vein was localized using ultrasound guidance. The skin was prepped and draped in a sterile fashion. 2% lidocaine was used as a local anesthetic. Using ultrasound guidance the basilic vein was cannulated and a 0.018 guidewire was inserted and advanced to the SVC using fluoroscopic guidance, and last image hold technology. The needle was removed and a 4.5 Turkmen dilator and peel-away sheath was inserted over the guide wire. A 4.5 Turkmen single lumen catheter was cut to length of 49 cm. The dilator was removed and the catheter was inserted over the guide wire with the tip ending in the SVC. The peel-away sheath was removed and the catheter was flushed with heparinized saline as per Hospital protocol. The catheter was affixed to the skin and a sterile dressing was applied. The patient tolerated the procedure well and there were no immediate complications. 0.2 minutes of fluoro time was utilized for this procedure. FINDINGS: None IMPRESSION: PICC line insertion left basilic vein with the tip ending in the SVC. <Electronically signed by Cuco Otoole > 01/20/21 1647 <Electronically signed by Hoang Babcock > 01/20/21 [id number]
--- NOTE | 2021-01-20 17:32 | IPN ---
PROGRESS NOTE DATE: 01/20/2021 SUBJECTIVE: To seems to be doing well. He is anxious to go home. He has no nausea, vomiting, diarrhea, fever, or chills. He has been afebrile. Intraoperative culture was positive for E. coli, MSSA, Gemella sanguinis and eubacterium lentum. MEDICATIONS: IV Zosyn 3.375 q. 6 hours currently day #7. OBJECTIVE: VITAL SIGNS: Temperature 97.8, pulse 87, respirations 18, blood pressure 160/80, O2 sat 99% on room air. HEART: Normal S1, S2. No murmurs, rubs or gallops. LUNGS: Clear. No wheezes, rales, or rhonchi. ABDOMEN: Soft and nontender with no hepatosplenomegaly. BACK: No tenderness. EXTREMITIES: The left foot with a large incision in the midfoot area measuring at least 15 cm x 8 cm in diameter with some maceration of the wound and blue discoloration for Hydrofera BLUE. Granulation tissue in the middle of the wound and serosanguineous discharge. There is no purulence and no surrounding cellulitis. LABORATORY DATA: White count 9.2, hemoglobin 9.7, hematocrit 29.2, platelets 198,000. ESR was 125 on admission. Sodium 140, potassium 3.7, chloride 108, bicarb 26, BUN 28, creatinine 1.6, glucose 325, calcium 8.3. CRP 23.1 down to 0.93. IMPRESSION: Acute osteomyelitis with polymicrobial abscess status post drainage done by Dr. Myles. The patient has severe peripheral vascular disease and I cannot feel a pulse. Due to the concern of possible osteomyelitis of the foot and significant necrosis, continue with home IV antibiotics. Intraoperatively he had evidence of acute osteomyelitis of the left metatarsal. PLAN: Peripherally inserted central catheter (PICC) line was ordered for today and has been placed. I have ordered IV infusion for home IV antibiotics with Zosyn 13.375 grams q. 24 hours. He will have weekly labs with CBC, basic, ESR, and CRP. He will follow-up with Dr. Lay weekly for dressing changes and wound care. He will have a nurse to visit him twice a week for dressing change and home IV antibiotics. He needs to follow-up in my office in two weeks. The patient should be able to be discharged home tomorrow.
[2021-01-20] MEDS: SODIUM CHLORIDE 0.9% INJ 10 ML SYR IV SCH (18:01)
[2021-01-20 18:07] VITALS: BP 150/88
[2021-01-20] MEDS: ATORVASTATIN 20 MG TAB PO SCH (20:10)
[2021-01-20 22:00] VITALS: BP 163/77
[2021-01-21] MEDS: PIPERACILLIN/TAZOBACTAM SOD 3.375 GM in D5W MINI-BAG PLUS 50 ML IV SCH ×3 (00:38→12:56)
[2021-01-21] MEDS: SODIUM CHLORIDE 0.9% INJ 10 ML SYR IV PRN ×2 (02:01→12:57)
[2021-01-21 06:00] VITALS: BP 158/76
[2021-01-21] MEDS: SODIUM CHLORIDE 0.9% INJ 10 ML SYR IV SCH (07:22)
[2021-01-21] MEDS: ENOXAPARIN 40MG/0.4ML SYRINGE (J1650 PER 10MG) SC SCH ×2 (08:06→08:13)
[2021-01-21] MEDS: FUROSEMIDE 40 MG TAB PO SCH (08:06)
[2021-01-21] MEDS: OMEPRAZOLE 20 MG CAP PO SCH (08:06)
[2021-01-21] MEDS: PARoxetine 20MG TABLET PO SCH (08:06)
[2021-01-21] MEDS: HumaLOG INSULIN (NovoLOG) PER UNIT SC SCH ×2 (08:06→12:56)
[2021-01-21 08:07] VITALS: BP 179/91
[2021-01-21] MEDS: POTASSIUM CHLORIDE 10 MEQ SR TABLET PO SCH (08:07)
[2021-01-21] MEDS: CARVedilol 6.25 MG TAB PO SCH (08:07)
[2021-01-21] MEDS: hydroCHLOROthiazide 12.5 MG CAPSULE PO SCH (08:07)
[2021-01-21] MEDS: ASPIRIN 81MG ENTERIC TABLET PO SCH (08:07)
[2021-01-21] MEDS ORDERED: HYDR12CA PO (13:20)
[2021-01-21] MEDS ORDERED: KLOR10TA76 PO (13:20)
[2021-01-21] MEDS ORDERED: CARV6.25 PO (13:20)
[2021-01-21 13:22] LABS: HEMATOCRIT 30.4 % (42.0-52.0); HEMOGLOBIN 10.1 g/dl (13.5-17.5); MEAN CORPUSCULAR HEMOGLOBIN 28.9 pg (27.0-33.0); MEAN CORPUSCULAR HGB CONC 33.2 g/dl (32.0-36.5); MEAN CORPUSCULAR VOLUME 86.9 fl (80.0-96.0); PLATELET COUNT, AUTOMATED 212 10^3/uL (150-450); WHITE BLOOD COUNT 9.3 10^3/uL (4.0-10.0)
[2021-01-21 13:52] LABS: CALCIUM LEVEL 7.9 MG/DL (8.5-10.1); CREATININE FOR GFR 1.58 MG/DL (0.70-1.30); POTASSIUM SERUM 3.9 MEQ/L (3.5-5.1)
[2021-01-21 14:00] VITALS: BP 155/80
--- NOTE | 2021-01-23 09:14 | IPN ---
PROGRESS NOTE DATE: 01/21/2021 ADDENDUM ADDENDUM: The patient's discharge summary was done yesterday. PFS is working with insurance on getting his home IV antibiotic which is Zosyn 13.375 grams IV every 24 hours, weekly labs, CBC, BMP, sed rate and CRP. We are still waiting to get insurance authorization for this. Patient is quite frustrated. He is planning to leave against medical advice, the implications of this were discussed with him including potential for permeant disability and pain syndrome related to loss of his left foot. PHYSICAL EXAMINATION: His vitals are stable. Lungs are clear. Heart: Regular rhythm. Abdomen is soft. Left foot is bandaged. DISPOSITION: Depends on his insurance and his willingness to stay in the hospital pending hearing more about this.
== END 2021-01-21 17:58 | disposition home health service (06) | DRG 364 ==
LOC: M ED 10:34 → M ED INP 14:53 → ENRESERV 15:15 → M MSPAV 18:12
PROVIDERS: ADMIT General Practice; ATTEND Family Medicine
PROC: 0JBR0ZZ Excision of Left Foot Subcutaneous Tissue and Fascia, Open Approach (ICD-10-PCS; 2021-01-12)
PROC: 0QBP0ZZ Excision of Left Metatarsal, Open Approach (ICD-10-PCS; principal; 2021-01-12 16:00)
PROC: 0QBP0ZZ Excision of Left Metatarsal, Open Approach (ICD-10-PCS; 2021-01-15)
PROC: 0JBR0ZZ Excision of Left Foot Subcutaneous Tissue and Fascia, Open Approach (ICD-10-PCS; 2021-01-15)
PROC: 02HV33Z Insertion of Infusion Device into Superior Vena Cava, Percutaneous Approach (ICD-10-PCS; 2021-01-20)
DX: E11.621 Type 2 diabetes mellitus with foot ulcer (principal); E11.610 Type 2 diabetes mellitus with diabetic neuropathic arthropathy; L97.529 Non-pressure chronic ulcer of other part of left foot with unspecified severity; E11.51 Type 2 diabetes mellitus with diabetic peripheral angiopathy without gangrene; N18.30 Chronic kidney disease, stage 3 unspecified; L03.116 Cellulitis of left lower limb; I70.25 Atherosclerosis of native arteries of other extremities with ulceration; L02.612 Cutaneous abscess of left foot; E78.5 Hyperlipidemia, unspecified; B96.29 Other Escherichia coli [E. coli] as the cause of diseases classified elsewhere; F17.200 Nicotine dependence, unspecified, uncomplicated; I12.9 Hypertensive chronic kidney disease with stage 1 through stage 4 chronic kidney disease, or unspecified chronic kidney disease; Z79.82 Long term (current) use of aspirin; Z79.899 Other long term (current) drug therapy; Z88.8 Allergy status to other drugs, medicaments and biological substances; D63.1 Anemia in chronic kidney disease; K21.9 Gastro-esophageal reflux disease without esophagitis; Z89.421 Acquired absence of other right toe(s); E55.9 Vitamin D deficiency, unspecified; Z79.4 Long term (current) use of insulin

== ENCOUNTER → 2021-01-26 | Outpatient (CLI) | payer BC ==
[~2021-01-26] MED LIST changes: +CARV6.25 PO; +HYDR12CA PO; +ISOVUE-300 61% 50ML VIAL As Ordered ONE; +KLOR10TA76 PO; +LIDOCAINE 1% MDV 20ML VIAL As Ordered ONE; +MIDAZOLAM INJ 2MG/2ML VIAL (J2250 PER 1MG) As Ordered ONE; +NS 1,000 ML IV SCH; +PROMETHAZINE INJ 25 MG/ML VIAL (J2550) As Ordered ONE; +diphenhydrAMINE 50MG/ML VIAL (J1200) As Ordered ONE; +fentaNYL 100 MCG/2 ML INJECTION (J3010) As Ordered ONE
[2021-01-26 17:05] VITALS: BP 190/92
--- NOTE | 2021-01-27 09:13 | IRPON ---
IR Postoperative Note Date Of Procedure: Jan 26, 2021 Time Of Procedure: 16:00 IR Postoperative Note IR Left leg angiogram IR Left below-knee runoff arteriogram. IR Ultrasound-guided right common femoral artery access. IR Left anterior tibial artery recanalization. IR Left anterior tibial artery angioplasty. IR Left tibia peroneal trunk angioplasty. IR Left posterior tibial artery angioplasty. IR Moderate sedation. Clinical Information:Left lower extremity nonhealing wound. Physician: Dr. Doll. Procedure: The patient was advised of the benefits, risks, and alternatives of the procedure and informed consent was obtained. A time out was performed with verification of the patient's name, MRN, site of procedure, and type of procedure to be performed. The patient was positioned in the supine position on the angiographic table. The site was prepped and draped in the usual sterile fashion. Moderate sedation was performed by the physician including the presence of an independent trained RN, who assisted in monitoring the patient's level of consciousness and physiological status. Following the administration of fentanyl and Versed, the physician spent 120 minutes of continuous [id number] time with the patient. A tear down matcher radiograph reveals no gross abnormality. Ultrasound of the right groin demonstrates patent right common femoral artery. Lidocaine was used for local anesthesia. The right common femoral artery was accessed, under ultrasound guidance, with a microintroducer set. A short 0.018" [place] wire was inserted and the needle was exchanged for a 4 Fr microintroducer sheath. The guidewire and dilator were removed, a 0.035" Bentson wire was advanced under fluoroscopy guidance, into the abdominal aorta. A 6 Fr sheath was placed over the wire. An Omni flush catheter was advanced over the wire, under fluoroscopy guidance and used to catheterize the infrarenal abdominal aorta. A pelvic arteriogram was performed and this demonstrates unremarkable infrarenal abdominal aorta. Patent bilateral common iliac, internal iliac and external iliac arteries. Patent bilateral common femoral, proximal superficial femoral and profunda femoris. The wire was advanced through the catheter, under fluoroscopy guidance and used to gain up and over access, into the left external iliac artery. The catheter was removed over the wire. A glide cath was advanced over the wire, under fluoroscopy guidance and used to catheterize the distal left common femoral artery. A left leg angiogram was performed. This demonstrates patent superficial femoral artery and profunda femoris. Angiography further down the left leg was performed and this demonstrates, patent mid and distal superficial femoral artery. Patent proximal, mid and distal popliteal artery. Multifocal greater than 60% stenosis of the left tibia peroneal trunk. Greater than 90% stenosis at the origin of the anterior tibial artery. Ten centimeter long complete occlusion of the proximal anterior tibial artery, which reconstitutes at the mid-tibia. A below knee arterial runoff was then performed, and this demonstrates greater than 90% stenosis at the origin of the left anterior tibial artery. There is reconstitution of the mid anterior tibial artery with multifocal greater than 90% stenosis. Patent distal anterior tibial artery and dorsalis pedis. Focal stenosis at the origin of the posterior tibial artery. Patent proximal, mid and distal posterior tibial artery. Robust posterior tibial artery supply to the left foot, supplying calcaneal plantar branches. No significant contribution from the peroneal artery. Incomplete pedal loop. Microvascular disease in the left foot. A wire was advanced through the Glidecath, under fluoroscopy guidance, and the catheter was removed over the wire. The short vascular sheath was exchanged for a 6 Bhutanese 45 cm destination sheath, which was advanced over the wire, under fluoroscopy guidance and positioned in the left common femoral artery. An 035 P[place] catheter was then used, in conjunction with a Glidewire, under fluoroscopic guidance to catheterize the left superficial femoral artery. The catheter in conjunction with the wire, was then used under fluoroscopy guidance to catheterize the left popliteal artery, tibia peroneal trunk and proximal posterior tibial artery. Intermittent injection of contrast confirmed i ntraluminal location. The catheter was removed over the wire. A 3 x 200 mm Counselor balloon was then advanced over the wire, under fluoroscopy guidance and positioned in the popliteal artery, tibia peroneal trunk and proximal posterior tibial artery. Angioplasty was performed. Heparin was administered. The balloon was then deflated and removed over the wire. An 035 angled Navicross catheter was then advanced over the wire and used to catheterize the mid left popliteal artery. A post angioplasty follow-up a rteriogram was performed and this demonstrates good flow in the distal left popliteal artery. Improved flow in the tibia peroneal trunk and proximal posterior tibial artery. No extravasation, distal emboli or vessel cutoff. The catheter in conjunction with a wire, was then used to catheterize the origin of the left anterior tibial artery. The wire was exchanged for an 016 double a ngle GT glide. The double angle GT glide micro-wire, was then used under fluoroscopy guidance to try to recanalize the occluded left anterior tibial artery. The Navicross catheter was advanced over the wire and intermittent injection of contrast confirmed intraluminal location. The catheter and wire were used in conjunction, under fluoroscopy guidance to recanalize the entire occluded segment of the anterior tibial artery, successfully. After successful selective catheterization of the mid, post occlusion, segment of the left anterior tibial artery, a distal runoff arteriogram was performed. This demonstrates forward flow in the distal left anterior tibial artery and no distal emboli. There is a focal greater than 90% stenosis in the distal anterior tibial artery. The catheter was removed over the wire. A 3 x 200 mm Counselor balloon was then advanced over the wire and positioned in the popliteal artery and occluded proximal anterior tibial artery. Angioplasty was performed. The balloon was then deflated and repositioned to the proximal and mid left anterior tibial artery. Further angioplasty was performed. The angioplasty balloon was deflated. A post angioplasty follow-up arteriogram was performed through the groin sheath, tip located to the left common femoral artery. This demonstrates good flow in the popliteal artery and now there is good flow within the previously occluded left anterior tibial artery. Preserved flow in the tibia peroneal trunk and posterior tibial artery. No extravasation, dissection or distal emboli. A post angioplasty follow-up arteriogram to the left foot was performed and this demonstrates preserved forward flow in the distal anterior tibial artery. There is focal greater than 80% stenosis in the distal left anterior tibial artery. There is good flow to the dorsalis pedis with no distal emboli or vessel cutoff. The 3 x 200 mm Counselor balloon was then advanced over the wire, to the mid and distal left anterior tibial artery. Angioplasty of the mid and distal left anterior tibial artery was performed. The balloon was then deflated and removed over the wire. A final post angioplasty follow-up arteriogram was performed through the groin sheath, tip located in the left common femoral artery. This demonstrates that there is now rapid flow to the left below-knee arterial runoff. There is good flow in the recanalized anterior tibial artery, proximal mid and distal with no extravasation, dissection or distal emboli. There is now improved flow in the tibia peroneal trunk with resolution of multifocal stenosis and robust flow in the posterior tibial artery. Catheter wire and sheath were removed. A 6 Bhutanese Mynx device was used to close the right groin arteriotomy. Hemostasis was achieved. A sterile dressing was applied to the site. The patient tolerated the procedure well and was returned to the PRU in stable condition. EBL: < 5 mL. Complications:None. Impression: 1. Left leg angiogram demonstrates patent inflow. 2. Below-knee arterial runoff demonstrates multifocal severe stenosis in the left tibia peroneal trunk. 3. Severe stenosis at the origin of the left anterior tibial artery and complete occlusion of long segment of the left anterior tibial artery. 4. Successful recanalization of proximal left anterior tibial artery and angioplasty. 5. Successful angioplasty of tibioperoneal trunk and proximal posterior tibial artery with resolution of multifocal stenosis. 6. Successful mid and distal left anterior tibial artery angioplasty with improved flow to the left foot. 7. Patient will be started on aspirin and Plavix regimen. It is paramount that patient's diabetes, and hypertension be better controlled and patient is encouraged to stop smoking. Thank you for this referral. Cc NISHANT Tena Dr., Dr., MD Jan 27, 2021 09:13
== END ==
LOC: M IRPRO 08:48
PROVIDERS: ATTEND Radiology Diagnostic Radiology
DX: I70.239 Atherosclerosis of native arteries of right leg with ulceration of unspecified site (principal); L97.929 Non-pressure chronic ulcer of unspecified part of left lower leg with unspecified severity; E11.51 Type 2 diabetes mellitus with diabetic peripheral angiopathy without gangrene; E78.5 Hyperlipidemia, unspecified; F17.210 Nicotine dependence, cigarettes, uncomplicated; I10 Essential (primary) hypertension; K21.9 Gastro-esophageal reflux disease without esophagitis; Z79.4 Long term (current) use of insulin; Z79.899 Other long term (current) drug therapy; Z88.8 Allergy status to other drugs, medicaments and biological substances
CPT/HCPCS: 37228; 37232; 75630; 75774; 99152; 99153; C1725; C1760; C1769; C1887; C1894; J1200; J1644; J2250; J3010; Q9967

== ENCOUNTER → 2021-01-26 | Outpatient (REF) | payer BC ==
[~2021-01-26] MED LIST changes: -ISOVUE-300 61% 50ML VIAL As Ordered ONE; -LIDOCAINE 1% MDV 20ML VIAL As Ordered ONE; -MIDAZOLAM INJ 2MG/2ML VIAL (J2250 PER 1MG) As Ordered ONE; -NS 1,000 ML IV SCH; -PROMETHAZINE INJ 25 MG/ML VIAL (J2550) As Ordered ONE; -diphenhydrAMINE 50MG/ML VIAL (J1200) As Ordered ONE; -fentaNYL 100 MCG/2 ML INJECTION (J3010) As Ordered ONE
[2021-01-26 11:27] LABS: BASO # 0.1 10^3/uL (0.0-0.2); EOS # 0.1 10^3/uL (0.0-0.5); EOS % 2.1 % (0.0-3.0); HEMATOCRIT 30.2 % (42.0-52.0); HEMOGLOBIN 9.5 g/dl (13.5-17.5); LYMPH # 1.5 10^3/uL (1.5-5.0); LYMPH % 23.8 % (24.0-44.0); MEAN CORPUSCULAR HEMOGLOBIN 28.4 pg (27.0-33.0); MEAN CORPUSCULAR HGB CONC 31.5 g/dl (32.0-36.5); MEAN CORPUSCULAR VOLUME 90.1 fl (80.0-96.0); MONO # 0.4 10^3/uL (0.0-0.8); MONO % 5.7 % (2.0-8.0); NEUTROPHILS # 4.2 10^3/uL (1.5-8.5); NEUTROPHILS % 66.9 % (36.0-66.0); PLATELET COUNT, AUTOMATED 190 10^3/uL (150-450); RED BLOOD COUNT 3.35 10^6/uL (4.30-6.10); WHITE BLOOD COUNT 6.3 10^3/uL (4.0-10.0)
[2021-01-26 11:55] LABS: ERYTHROCYTE SEDIMENTATION RATE 89 mm/hr (0-20)
[2021-01-26 12:21] LABS: C REACTIVE PROTEIN QUANTITATIV 0.42 MG/DL (0.00-0.30); CREATININE FOR GFR 1.53 MG/DL (0.70-1.30); GLOMERULAR FILTRATION RATE 49.8 (>56); POTASSIUM SERUM 3.5 MEQ/L (3.5-5.1)
== END ==
LOC: M SHH 10:03
PROVIDERS: ATTEND Internal Medicine Infectious Disease
DX: L03.116 Cellulitis of left lower limb (principal); E11.621 Type 2 diabetes mellitus with foot ulcer

== ENCOUNTER → 2021-02-02 | Outpatient (REF) | payer BC ==
[2021-02-02 12:55] LABS: BASO # 0.1 10^3/uL (0.0-0.2); BASO % 1.3 % (0.0-1.0); EOS # 0.2 10^3/uL (0.0-0.5); EOS % 3.4 % (0.0-3.0); HEMATOCRIT 29.7 % (42.0-52.0); HEMOGLOBIN 9.6 g/dl (13.5-17.5); LYMPH # 1.3 10^3/uL (1.5-5.0); MEAN CORPUSCULAR HEMOGLOBIN 29.3 pg (27.0-33.0); MEAN CORPUSCULAR HGB CONC 32.3 g/dl (32.0-36.5); MEAN CORPUSCULAR VOLUME 90.5 fl (80.0-96.0); MONO # 0.3 10^3/uL (0.0-0.8); NEUTROPHILS # 2.8 10^3/uL (1.5-8.5); NEUTROPHILS % 60.7 % (36.0-66.0); PLATELET COUNT, AUTOMATED 182 10^3/uL (150-450); RED BLOOD COUNT 3.28 10^6/uL (4.30-6.10); WHITE BLOOD COUNT 4.7 10^3/uL (4.0-10.0)
[2021-02-02 13:22] LABS: C REACTIVE PROTEIN QUANTITATIV 0.66 MG/DL (0.00-0.30); CALCIUM LEVEL 7.9 MG/DL (8.5-10.1); CREATININE FOR GFR 1.77 MG/DL (0.70-1.30); GLOMERULAR FILTRATION RATE 42.1 (>56); POTASSIUM SERUM 4.4 MEQ/L (3.5-5.1)
[2021-02-02 13:48] LABS: ERYTHROCYTE SEDIMENTATION RATE 97 mm/hr (0-20)
== END ==
LOC: M SHH 12:17
PROVIDERS: ATTEND Internal Medicine Infectious Disease
DX: M86.179 Other acute osteomyelitis, unspecified ankle and foot (principal); L03.116 Cellulitis of left lower limb; E11.621 Type 2 diabetes mellitus with foot ulcer

== ENCOUNTER → 2021-02-09 | Outpatient (REF) | payer BC ==
[2021-02-09 14:00] LABS: BASO # 0.1 10^3/uL (0.0-0.2); BASO % 1.1 % (0.0-1.0); EOS # 0.2 10^3/uL (0.0-0.5); EOS % 3.5 % (0.0-3.0); HEMATOCRIT 31.9 % (42.0-52.0); HEMOGLOBIN 10.1 g/dl (13.5-17.5); LYMPH # 1.5 10^3/uL (1.5-5.0); LYMPH % 31.7 % (24.0-44.0); MEAN CORPUSCULAR HEMOGLOBIN 29.1 pg (27.0-33.0); MEAN CORPUSCULAR HGB CONC 31.7 g/dl (32.0-36.5); MEAN CORPUSCULAR VOLUME 91.9 fl (80.0-96.0); MONO # 0.3 10^3/uL (0.0-0.8); MONO % 6.3 % (2.0-8.0); NEUTROPHILS # 2.6 10^3/uL (1.5-8.5); NEUTROPHILS % 56.7 % (36.0-66.0); PLATELET COUNT, AUTOMATED 184 10^3/uL (150-450); RED BLOOD COUNT 3.47 10^6/uL (4.30-6.10); WHITE BLOOD COUNT 4.6 10^3/uL (4.0-10.0)
[2021-02-09 14:35] LABS: C REACTIVE PROTEIN QUANTITATIV 0.3 MG/DL (0.00-0.30); CREATININE FOR GFR 2.09 MG/DL (0.70-1.30); GLOMERULAR FILTRATION RATE 34.8 (>56); POTASSIUM SERUM 4.6 MEQ/L (3.5-5.1)
[2021-02-09 15:26] LABS: ERYTHROCYTE SEDIMENTATION RATE 68 mm/hr (0-20)
== END ==
LOC: M SHH 12:55
PROVIDERS: ATTEND Internal Medicine Infectious Disease
DX: E11.621 Type 2 diabetes mellitus with foot ulcer (principal); M86.179 Other acute osteomyelitis, unspecified ankle and foot; L03.116 Cellulitis of left lower limb

== ENCOUNTER 2021-03-03 04:22 | Emergency (ER) | payer BC ==
[~2021-03-03] VITALS: Ht 185.4 cm; Wt 101.8 kg
[2021-03-03 05:04] LABS: BASO % 0.6 % (0.0-1.0); EOS % 0.8 % (0.0-3.0); HEMATOCRIT 37.5 % (42.0-52.0); HEMOGLOBIN 12.4 g/dl (13.5-17.5); LYMPH # 1.4 10^3/uL (1.5-5.0); LYMPH % 26.1 % (24.0-44.0); MEAN CORPUSCULAR HGB CONC 33.1 g/dl (32.0-36.5); MEAN CORPUSCULAR VOLUME 87.8 fl (80.0-96.0); MONO # 0.4 10^3/uL (0.0-0.8); MONO % 7.8 % (2.0-8.0); NEUTROPHILS # 3.4 10^3/uL (1.5-8.5); NEUTROPHILS % 64.3 % (36.0-66.0); PLATELET COUNT, AUTOMATED 204 10^3/uL (150-450); RED BLOOD COUNT 4.27 10^6/uL (4.30-6.10); WHITE BLOOD COUNT 5.3 10^3/uL (4.0-10.0)
[2021-03-03 05:25] LABS: ERYTHROCYTE SEDIMENTATION RATE 63 mm/hr (0-20)
[2021-03-03 05:30] LABS: HEMOGLOBIN A1c 7.4 %
[2021-03-03 05:34] LABS: ALBUMIN 2.6 GM/DL (3.2-5.2); ALT/SGPT 23 U/L (12-78); BILIRUBIN,TOTAL 0.3 MG/DL (0.2-1.0); BLOOD UREA NITROGEN 43 MG/DL (7-18); C REACTIVE PROTEIN QUANTITATIV 1.42 MG/DL (0.00-0.30); CALCIUM LEVEL 8.2 MG/DL (8.5-10.1); CARBON DIOXIDE LEVEL 22 MEQ/L (21-32); CHLORIDE LEVEL 113 MEQ/L (98-107); CK-MB VALUE MASS 4.5 NG/ML (<3.6); CPK CREATINE PHOSPHOKINASE 61 U/L (39-308); CREATININE FOR GFR 2.07 MG/DL (0.70-1.30); GLOMERULAR FILTRATION RATE 35.2 (>56); GLUCOSE, FASTING 98 MG/DL (70-100); MB/CK RELATIVE INDEX 7.38 (< OR =4); POTASSIUM SERUM 5.1 MEQ/L (3.5-5.1); SODIUM LEVEL 138 MEQ/L (136-145); TOTAL PROTEIN 5.9 GM/DL (6.4-8.2); TROPONIN I < 0.02 NG/ML (< 0.10)
[2021-03-03] MEDS ORDERED: NS 1,000 ML IV ONE (06:15)
--- NOTE | 2021-03-03 07:58 | REPVR ---
PROCEDURE INFORMATION: Exam: CT Head Without Contrast Exam date and time: 03/03/2021 7:37 AM Age: 60 years old Clinical indication: Injury or trauma; Fall; Blunt trauma (contusions or hematomas); Consciousness not specified; Additional info: Fall onto floor TECHNIQUE: Imaging protocol: Computed tomography of the head without contrast. Radiation optimization: All CT scans at this facility use at least one of these dose optimization techniques: automated exposure control; mA and/or kV adjustment per patient size (includes targeted exams where dose is matched to clinical indication); or iterative reconstruction. COMPARISON: No relevant prior studies available. FINDINGS: Brain: The brain demonstrates diffuse volume loss. There is white matter hypodensity most consistent with chronic small vessel ischemic change. There are small foci of low attenuation in the right basal ganglia related to chronic lacunar infarctions. Cerebral ventricles: The ventricles and CSF spaces are proportionately enlarged. Paranasal sinuses: Visualized sinuses are unremarkable. No fluid levels. Mastoid air cells: Visualized mastoid air cells are well aerated. Bones/joints: No acute fracture. Soft tissues: There is a left occipital soft tissue contusion. IMPRESSION: 1. Atrophy and the sequela prior small vessel ischemia. 2. No sequela of acute intracranial trauma. Electronically signed by: Sunil Perales On 03/03/2021 07:58:26 AM
--- NOTE | 2021-03-03 08:01 | REPVR ---
PROCEDURE INFORMATION: Exam: CT Cervical Spine Without Contrast Exam date and time: 03/03/2021 7:37 AM Age: 60 years old Clinical indication: Injury or trauma; Fall; Blunt trauma; Additional info: Fall onto floor TECHNIQUE: Imaging protocol: Computed tomography images of the cervical spine without contrast. Radiation optimization: All CT scans at this facility use at least one of these dose optimization techniques: automated exposure control; mA and/or kV adjustment per patient size (includes targeted exams where dose is matched to clinical indication); or iterative reconstruction. COMPARISON: CR Chest, 2 view PA, Lat 01/08/2021 4:07 PM FINDINGS: Bones/joints: Straightening of the normal cervical lordosis may be related to patient position or due to muscle spasm. There is a mild dextroscoliosis. There is no subluxation or fracture. There is no fracture or subluxation. Discs/Spinal canal/Neural foramina: There is loss of disc space height throughout most focally at C6-C7 related to degenerative disc disease. Sinuses: There is trace mucoperiosteal reaction in the left maxillary sinus. Auditory system: There is material in the external auditory canals bilaterally, which presumably represents cerumen. Thyroid: There is a dominant 2.9 cm left thyroid nodule. Lungs: Lung apices are normal. Vasculature: There is atherosclerotic disease of carotid arteries not fully assessed. Soft tissues: Unremarkable. IMPRESSION: 1. There is no fracture or subluxation. 2. There is a 2.9 cm left thyroid nodule. A follow-up nonemergent thyroid ultrasound is recommended. COMMENTS: Consistent with the [place] [employer]'s Incidental Findings Committee white paper (J Am Farnaz Radiol 2015): In patients aged 35 years and older with an incidental thyroid nodule equal to or greater than 1.[address], MRI or extrathyroidal US, further evaluation with dedicated thyroid US is recommended for patients with normal life expectancy and without comorbidities. For smaller nodules without suspicious features, no further evaluation or follow up is recommended. Electronically signed by: Sunil Perales On 03/03/2021 08:01:11 AM
[2021-03-03 10:14] VITALS: BP 142/70
--- NOTE | 2021-03-03 11:38 | ED PDOC ---
Post-Departure Follow-Up ct c spine faxed to [facility] for fu Anthony Williamson MD Mar 03, 2021 11:38
== END 2021-03-03 10:34 | disposition home or self-care (01) ==
LOC: M ED 04:22
DX: E11.649 Type 2 diabetes mellitus with hypoglycemia without coma (principal); E04.1 Nontoxic single thyroid nodule; I10 Essential (primary) hypertension; N18.4 Chronic kidney disease, stage 4 (severe); Z88.8 Allergy status to other drugs, medicaments and biological substances

== ENCOUNTER → 2021-03-06 | Outpatient (REF) | payer BC ==
[2021-03-06 12:32] LABS: BASO % 0.7 % (0.0-1.0); EOS # 0.2 10^3/uL (0.0-0.5); EOS % 2.5 % (0.0-3.0); HEMATOCRIT 32.7 % (42.0-52.0); HEMOGLOBIN 10.8 g/dl (13.5-17.5); LYMPH # 1.7 10^3/uL (1.5-5.0); LYMPH % 29.3 % (24.0-44.0); MEAN CORPUSCULAR HEMOGLOBIN 29.3 pg (27.0-33.0); MEAN CORPUSCULAR VOLUME 88.6 fl (80.0-96.0); MONO # 0.4 10^3/uL (0.0-0.8); MONO % 6.1 % (2.0-8.0); NEUTROPHILS # 3.6 10^3/uL (1.5-8.5); NEUTROPHILS % 61.1 % (36.0-66.0); PLATELET COUNT, AUTOMATED 207 10^3/uL (150-450); RED BLOOD COUNT 3.69 10^6/uL (4.30-6.10); WHITE BLOOD COUNT 5.9 10^3/uL (4.0-10.0)
[2021-03-06 12:52] LABS: C REACTIVE PROTEIN QUANTITATIV 1.95 MG/DL (0.00-0.30); CALCIUM LEVEL 8.3 MG/DL (8.5-10.1); CREATININE FOR GFR 1.75 MG/DL (0.70-1.30); GLOMERULAR FILTRATION RATE 42.7 (>56); POTASSIUM SERUM 5.2 MEQ/L (3.5-5.1)
[2021-03-06 13:12] LABS: ERYTHROCYTE SEDIMENTATION RATE 70 mm/hr (0-20)
== END ==
LOC: M LABDRWAD 11:34
PROVIDERS: ATTEND Internal Medicine Infectious Disease
DX: M86.172 Other acute osteomyelitis, left ankle and foot (principal); E11.22 Type 2 diabetes mellitus with diabetic chronic kidney disease

== ENCOUNTER 2021-03-20 13:23 | Inpatient (IN) | payer BC ==
[~2021-03-20] VITALS: Ht 185.4 cm; Wt 96.5 kg
[2021-03-20 14:20] LABS: ABG BASE EXCESS -7.7 (-2.0-2.0); ABG O2 SATURATION 97.6 % (95.0-99.0); ABG PARTIAL PRESSURE CO2 37.4 mmHg (35.0-45.0); ABG PARTIAL PRESSURE O2 104.8 mmHg (75.0-100.0); ABG STANDARD HCO3 18.3 MEQ/L (22.0-26.0); ABG TOTAL CO2 19.2 MEQ/L (22.0-29.0); ABG pH (ARTERIAL) 7.301 UNITS (7.350-7.450)
[2021-03-20 14:22] LABS: BASO % 0.5 % (0.0-1.0); EOS # 0.1 10^3/uL (0.0-0.5); EOS % 0.8 % (0.0-3.0); HEMATOCRIT 36.3 % (42.0-52.0); HEMOGLOBIN 11.9 g/dl (13.5-17.5); LYMPH # 1.6 10^3/uL (1.5-5.0); LYMPH % 26.4 % (24.0-44.0); MEAN CORPUSCULAR HEMOGLOBIN 29.2 pg (27.0-33.0); MEAN CORPUSCULAR HGB CONC 32.8 g/dl (32.0-36.5); MONO # 0.3 10^3/uL (0.0-0.8); MONO % 5.3 % (2.0-8.0); NEUTROPHILS # 4.1 10^3/uL (1.5-8.5); NEUTROPHILS % 66.4 % (36.0-66.0); PLATELET COUNT, AUTOMATED 198 10^3/uL (150-450); RED BLOOD COUNT 4.08 10^6/uL (4.30-6.10); WHITE BLOOD COUNT 6.2 10^3/uL (4.0-10.0)
--- NOTE | 2021-03-20 14:34 | REP ---
INDICATION: Altered Mental Status. COMPARISON: Comparison chest x-ray January 08, 2021. TECHNIQUE: Portable upright AP chest radiograph. FINDINGS: The lungs are well inflated and free of infiltrate. Pleural angles are sharp. Heart size is normal. Pulmonary vasculature is not increased. IMPRESSION: No active disease. <Electronically signed by Sheldon Eastman > 03/20/21 [id number]
--- NOTE | 2021-03-20 14:35 | REPVR ---
PROCEDURE INFORMATION: Exam: CT Head Without Contrast Exam date and time: 03/20/2021 2:18 PM Age: 60 years old Clinical indication: Altered mental status/memory loss TECHNIQUE: Imaging protocol: Computed tomography of the head without contrast. Radiation optimization: All CT scans at this facility use at least one of these dose optimization techniques: automated exposure control; mA and/or kV adjustment per patient size (includes targeted exams where dose is matched to clinical indication); or iterative reconstruction. 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 There is no acute intracranial hemorrhage. There is mild lucency in the cerebral white matter, likely microvascular disease although non-specific. Babcock white differentiation is intact. There are no extra-axial fluid collections. No evidence of mass. There is no mass effect or midline shift. Cerebral ventricles: The ventricles and sulci are enlarged, consistent with mild volume loss / atrophy. No hydrocephalus. Paranasal sinuses: There is mild mucosal thickening in bilateral maxillary sinuses. Mastoid air cells: No significant mastoid effusion. Vasculature: There is vascular calcification. Bones/joints: No acute fracture. Soft tissues: Unremarkable as visualized. IMPRESSION: 1. No evidence of acute intracranial abnormality. No evidence of acute infarction, hemorrhage, or mass. 2. Atrophy and microvascular disease. Electronically signed by: Elena Gallardo On 03/20/2021 14:34:53 PM
[2021-03-20 14:58] LABS: AMPHETAMINES LEVEL URINE NEGATIVE (NEGATIVE); BARBITURATES URINE NEGATIVE (NEGATIVE); BENZODIAZEPINES URINE NEGATIVE (NEGATIVE); CANNABINOIDS URINE NEGATIVE (NEGATIVE); COCAINE METABOLITE URINE NEGATIVE (NEGATIVE); METHADONE URINE NEGATIVE (NEGATIVE); OPIATES URINE NEGATIVE (NEGATIVE); PHENCYCLIDINE URINE NEGATIVE (NEGATIVE)
[2021-03-20] MEDS ORDERED: DEXTROSE 50% 50 ML SYRINGE IV STA ×2 (15:01→18:34)
[2021-03-20 15:03] LABS: ACETAMINOPHEN LEVEL 3.2 UG/ML (10.0-30.0); ALBUMIN 2.3 GM/DL (3.2-5.2); ALT/SGPT 17 U/L (12-78); BILIRUBIN,DIRECT < 0.1 MG/DL (0.0-0.2); BILIRUBIN,TOTAL 0.3 MG/DL (0.2-1.0); BLOOD UREA NITROGEN 32 MG/DL (7-18); CARBON DIOXIDE LEVEL 19 MEQ/L (21-32); CHLORIDE LEVEL 113 MEQ/L (98-107); CK-MB VALUE MASS 5.7 NG/ML (<3.6); CPK CREATINE PHOSPHOKINASE 70 U/L (39-308); ETHYL ALCOHOL (ETHANOL) 0.005 % (0.000-0.010); GLOMERULAR FILTRATION RATE 55.2 (>56); GLUCOSE, FASTING 95 MG/DL (70-100); MB/CK RELATIVE INDEX 8.14 (< OR =4); POTASSIUM SERUM 5.6 MEQ/L (3.5-5.1); SALICYLATE LEVEL 1.9 MG/DL (5.0-30.0); SODIUM LEVEL 139 MEQ/L (136-145); THYROID STIMULATING HORMONE 0.911 uIU/ML (0.358-3.740); TOTAL PROTEIN 5.5 GM/DL (6.4-8.2); TROPONIN I < 0.02 NG/ML (< 0.10)
[2021-03-20] MEDS ORDERED: POTA1TAB14 PO (16:39)
[2021-03-20] MEDS ORDERED: CLOP75TA2 PO (16:39)
[2021-03-20] MEDS ORDERED: PANT40TA29 PO (16:39)
[2021-03-20] MEDS ORDERED: GLUCOSE 4GM CHEW TABLET PO PRN (16:45)
[2021-03-20] MEDS ORDERED: DEXTROSE 50% 50 ML SYRINGE IV PRN (16:45)
[2021-03-20] MEDS ORDERED: GLUCAGON INJ 1MG VIAL SC PRN (16:45)
--- NOTE | 2021-03-20 16:58 | HPEPDOC ---
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 Patient does not recollect the course of events that took place. He remembers waking up in the morning for his wound care appointment late but falling back to sleep. The next he remembers is waking up vomiting back to the emergency department. According to signout, patient was found by his son laying next to his bed and when EMS arrived his blood glucose was 55. Upon administering an amp of glucose he began to wake up. In the emergency department he was noted to have blood glucose of 66 and was also hypothermic. He received additional lab of glucose and was passively warmed with a bear hugger, and peruvian peraza lights. At this junction, his blood glucose was 144 and his pro temperature was 97 degrees. He was awake, alert, and oriented and asking to go home. He denied any incontinence, focal weakness, headaches, chest pain, abdominal pain, nausea, vomiting, problems with urination or bowel movements. He is unaware if there is any seizure-like activity. He denied any prodromal symptoms including nausea, vomiting, diaphoresis, and palpitations. He reported having a similar episode couple months ago related to hypoglycemia where he was seen in emergency department. PAST MEDICAL HISTORY: As mentioned above PAST SURGICAL HISTORY: 1. Right and left amputation 2. Debridement to his left foot SOCIAL HISTORY: Reports living at home with his family. He smokes 4 cigarettes a day. He denies use of recreational drugs and drinking alcohol. FAMILY HISTORY: Noncontributory ALLERGIES: Please see below. REVIEW OF SYSTEMS: 10 point review of system was negative except for what is noted in the HPI HOME MEDICATIONS: Please see below. PHYSICAL EXAMINATION: General: Lying in bed, no acute distress Head/Neck/Throat: Trachea midline, mucous membranes moist Eyes: Sclera anicteric, no erythema or discharge appreciated bilaterally Thorax: Normal respiratory effort on room air, lungs clear to auscultation bilaterally, no wheezes/rales/rhonchi Cardiovascular: Normal rate, regular rhythm, normal S1, S2; no S3, S4, rubs/gallops/murmurs Abdomen: Bowel sounds present, soft/nontender/nondistended Genitourinary: No CVA tenderness, no Schmid in place Musculoskeletal: Moving all extremities, no edema Skin: Warm, dry. Left foot was wrapped and patient reported he would not allow unwrapping as he is undergoing skin grafting at the time, and only wanted to wound care surgeon on his next appointment to evaluate her and wrap his foot. Neurologic: AAOx3, speech fluent and goal-directed, no focal deficits, grossly intact LABORATORY DATA: See below. IMAGING: See full details of chest x-ray and CT scan of the brain -no acute pathology was seen. MICROBIOLOGY: Please see below. ASSESSMENT/PLAN: #Metabolic encephalopathy -Likely secondary to hypoglycemia which subsequently lead to hyperthermia. He is on glargine 50U qhs, empaglifozin 25mg, and glyburide 5mg twice daily; from these medications glyburide would be likely causing him to become hypoglycemic. Considering he has had an episode of hypoglycemia in the past, it would be recom mended for him to discontinue it. #IDDM -His insulin regimen will be held, as well as his diabetic medications; until we see a normalization of his blood glucose. As mentioned above, due to his epi sodes of hypoglycemia glyburide should be discontinued. -Hypoglycemic protocol. Accu-checks q6 hours. Will add on sliding scale if bg begins to raise. #Metabolic acidosis -Multifactorial from hypothermia vs s/e of medications. -Going to obtain lactic acid, and ketones (sglt2 can cause acidosis). #Electrolyte abnormality -Was taking potassium supplements at home and also acidoic. Will repeat chem tonight to ensure K is downtrending. -No acute ekg changes found. #HTN -Uncontrolled. Reports he has not taking any of his morning medications. Will resume ambulatory antihypertensives - amlodipine, carvedilol, and furosemide. #CKD -Renal function is at base line. Avoid nephrotoxic medications. #DVT ppx -Heparin subq. Please note patient is high risk for leaving AGAINST MEDICAL ADVICE. He want to leave AGAINST MEDICAL ADVICE in the emergency department. At this junction, he is completely awake, alert, oriented x3 and has full capacity and is back to baseline mental status. He was explained at length for reasoning of admission and he was agreeable to stay. However, he still may leave AGAINST MEDICAL ADVICE. Vital Signs Vital Signs Date Time Temp Pulse Resp B/P (MAP) Pulse Ox O2 Delivery O2 Flow Rate FiO2 03/20/21 15:38 90 03/20/21 15:30 175/91 (119) 03/20/21 15:23 97.0 18 100 Laboratory Data Labs 24H Laboratory Tests 2 03/20/21 14:08: Immature Granulocyte % (Auto) 0.6, Neutrophils (%) (Auto) 66.4H, Lymphocytes (%) (Auto) 26.4, Monocytes (%) (Auto) 5.3, Eosinophils (%) (Auto) 0.8, Basophils (%) (Auto) 0.5, Neutrophils # (Auto) 4.1, Lymphocytes # (Auto) 1.6, Monocytes # (Auto) 0.3, Eosinophils # (Auto) 0.1, Basophils # (Auto) 0.0, Nucleated Red Blood Cells % (auto) 0.0, Urine Color STRAW, Urine Appearance HAZY, Urine pH 5.0, Urine Specific [place] 1.012, Urine Protein 3+H, Urine Glucose (UA) 3+H, Urine Ketones NEGATIVE, Urine Blood 1+H, Urine Nitrite NEGATIVE, Urine Bilirubin NEGATIVE, Urine Urobilinogen 0.2, Urine Leukocyte Esterase NEGATIVE, Urine WBC (Auto) 2, Urine RBC (Auto) 3, Urine Hyaline Casts (Auto) 0, Urine Bacteria (Auto ) NEGATIVE, Urine Squamous Epithelial Cells 1, Urine Mucus (Auto) SMALL, Urine Sperm (Auto) , Blood Gas Bicarbonate Standard 18.3L, Arterial Blood pH 7.301L, Arterial Blood Partial Pressure CO2 37.4, Arterial Blood Partial Pressure O2 104.8H, Arterial Blood Total CO2 19.2L, Arterial Blood HCO3 18.0L, Arterial Blood Base Excess -7.7L, Arterial Blood Oxygen Saturation 97.6, Anion Gap 7L, Glomerular Filtration Rate 55.2L, Calcium Level 8.0L, Total Bilirubin 0.3, Direct Bilirubin < 0.1, Aspartate Amino Transf (AST/SGOT) 16, Alanine Aminotransferase (ALT/SGPT) 17, Alkaline Phosphatase 82, Total Creatine Kinase 70, Creatine Kinase MB 5.7H, Creatine Kinase MB Relative Index 8.14H, Troponin I < 0.02, Total Protein 5.5L, Albumin 2.3L, Albumin/Globulin Ratio 0.7, Thyroid Stimulating Hormone (TSH) 0.911, Salicylates Level 1.9L, Acetaminophen Level 3.2L, Ethyl Alcohol Level 0.005 03/20/21 14:18: Urine Opiates Screen NEGATIVE, Urine Methadone Screen NEGATIVE, Urine Barbiturates Screen NEGATIVE, Urine Phencyclidine Screen NEGATIVE, Urine Amphetamines Screen NEGATIVE, Urine Benzodiazepines Screen NEGATIVE, Urine Cocaine Metabolite Screen NEGATIVE, Urine Cannabinoids Screen NEGATIVE 03/20/21 14:43: Bedside Glucose (Misc Panel) 62L 03/20/21 16:14: Bedside Glucose (Misc Panel) 114H CBC/BMP Laboratory Tests 03/20/21 14:08 Microbiology Microbiology 03/20/21 Respiratory Virus Panel (PCR) ([facility]) - Final, Complete Home Medications Scheduled Amlodipine Besylate (Amlodipine Besylate) 5 Mg Tablet, 5 MG PO BID Aspirin (Aspirin EC) 81 Mg Tab, 81 MG PO DAILY Atorvastatin Calcium (Atorvastatin Calcium) 40 Mg Tab, 40 MG PO QHS Carvedilol (Carvedilol) 6.25 Mg Tablet, 6.25 MG PO BID Clopidogrel Bisulfate (Clopidogrel) 75 Mg Tablet, 75 MG PO DAILY Empagliflozin (Jardiance) 25 Mg Tablet, 25 MG PO DAILY Ergocalciferol (Vitamin D2) (Drisdol) 1,250 Mcg Capsule, 50,000 UNITS PO QWEEK MONDAYS Fenofibrate (Fenofibrate) 160 Mg Tab, 160 MG PO DAILY Furosemide (Furosemide) 40 Mg Tablet, 40 MG PO DAILY Glyburide (Glyburide) 5 Mg Tab, 5 MG PO BID Hydrochlorothiazide (Hydrochlorothiazide) 12.5 Mg Capsule, 12.5 MG PO DAILY Insulin Glargine,Hum.rec.anlog (Toujeo Solostar) 300 Unit/1 Ml Insuln.pen, 50 UNITS SC QHS Pantoprazole Sodium (Pantoprazole Sodium) 40 Mg Tablet.dr, 40 MG PO DAILY Paroxetine HCl (Paroxetine HCl) 20 Mg Tablet, 20 MG PO DAILY Potassium Chloride (Potassium Chloride) 20 Meq Tablet.er, 20 MEQ PO BID Allergies Coded Allergies: metformin (Verified Adverse Reaction, Mild, DIARRHEA, 01/08/21) A-FIB/CHADSVASC A-FIB History Current/History of A-Fib/PAF?: No AKRAM,PITA J. M.D. Mar 20, 2021 16:44
[2021-03-20] MEDS ORDERED: amLODIPine 5 MG TAB PO SCH (17:30)
[2021-03-20] MEDS ORDERED: FUROSEMIDE 40 MG TAB PO SCH (17:35)
[2021-03-20] MEDS ORDERED: FUROSEMIDE 40MG/4ML VIAL (J1940) IV ONE (17:40)
[2021-03-20] MEDS ORDERED: HYDR12CA PO (18:23)
[2021-03-20] MEDS ORDERED: CARV6.25 PO (18:23)
[2021-03-20 18:25] VITALS: BP 137/80
[2021-03-20] MEDS ORDERED: HOME MED LIST COMPLETE! XX SCH (18:25)
[2021-03-20 18:33] LABS: CALCIUM LEVEL 8.3 MG/DL (8.5-10.1); CREATININE FOR GFR 1.49 MG/DL (0.70-1.30); GLOMERULAR FILTRATION RATE 51.4 (>56); PHOSPHORUS LEVEL 4.7 MG/DL (2.5-4.9); POTASSIUM SERUM 6.1 MEQ/L (3.5-5.1)
[2021-03-20] MEDS ORDERED: HumuLIN R (REGULAR) INSULIN (NovoLIN R) **100U/ML** PER UNIT IV STA (18:34)
[2021-03-20] MEDS ORDERED: CALCIUM GLUCONATE 1,000 MG in D5W MINI-BAG PLUS 100 ML IV ONE (18:35)
[2021-03-20] MEDS: NS 0.45% 1,000 ML IV SCH (18:58)
[2021-03-20] MEDS: CARVedilol 6.25 MG TAB PO SCH (19:44)
[2021-03-20] MEDS: SOD POLYSTYRENE SULFONATE SUSP 15 GM/60 ML UD PO ONE ×2 (19:57→21:04)
[2021-03-20] MEDS ORDERED: ATORVASTATIN 20 MG TAB PO SCH (21:00)
[2021-03-20 22:00] VITALS: BP 157/86
[2021-03-20 22:57] LABS: CALCIUM LEVEL 8.5 MG/DL (8.5-10.1); CREATININE FOR GFR 1.72 MG/DL (0.70-1.30); GLOMERULAR FILTRATION RATE 43.5 (>56); PHOSPHORUS LEVEL 4.9 MG/DL (2.5-4.9); POTASSIUM SERUM 5.3 MEQ/L (3.5-5.1)
[2021-03-21] MEDS: NS 0.45% 1,000 ML IV SCH (03:25)
[2021-03-21 06:00] VITALS: BP 143/78
[2021-03-21 06:09] LABS: MEAN CORPUSCULAR HEMOGLOBIN 29.1 pg (27.0-33.0); MEAN CORPUSCULAR HGB CONC 33.3 g/dl (32.0-36.5); MEAN CORPUSCULAR VOLUME 87.2 fl (80.0-96.0); PLATELET COUNT, AUTOMATED 181 10^3/uL (150-450); RED BLOOD COUNT 3.44 10^6/uL (4.30-6.10); WHITE BLOOD COUNT 5.7 10^3/uL (4.0-10.0)
[2021-03-21 06:34] LABS: CALCIUM LEVEL 7.8 MG/DL (8.5-10.1); CREATININE FOR GFR 1.57 MG/DL (0.70-1.30); GLOMERULAR FILTRATION RATE 48.4 (>56); MAGNESIUM LEVEL 1.8 MG/DL (1.8-2.4); PHOSPHORUS LEVEL 4.4 MG/DL (2.5-4.9); POTASSIUM SERUM 4.7 MEQ/L (3.5-5.1)
[2021-03-21 08:03] VITALS: BP 142/74
[2021-03-21] MEDS: CARVedilol 6.25 MG TAB PO SCH (08:03)
[2021-03-21] MEDS ORDERED: ASPIRIN 81 MG CHEW TABLET PO SCH (09:00)
[2021-03-21] MEDS ORDERED: amLODIPine 5 MG TAB PO SCH ×2 (09:00)
[2021-03-21] MEDS ORDERED: PARoxetine 20MG TABLET PO SCH (09:00)
[2021-03-21] MEDS ORDERED: CLOPIDOGREL 75 MG TAB PO SCH (09:00)
[2021-03-21] MEDS ORDERED: ASPIRIN 325 MG TAB PO SCH (09:00)
--- NOTE | 2021-03-21 12:26 | DS.PDOC ---
Discharge Summary General Date of Admission Mar 20, 2021 at 16:44 Date of Discharge 03/21/21 Discharge Summary PROCEDURES PERFORMED DURING STAY: [None]. DISCHARGE DIAGNOSES: 1. Syncope 2. Hypoglycemia 3. Hypothermia 4. Electrolyte abnormality 5. CKD COMPLICATIONS/CHIEF COMPLAINT: Hypoglycemia, Hypothermia. HOSPITAL COURSE: 60-year-old male with past medical history of insulin-dependent diabetes mellitu s, left foot osteomyelitis status post graft/revision, hypertension, hyperlipidemia presented to emergency department after he was found on the floor by his son. He was noted to be hypoglycemic when EMS arrived to the scene. After receiving dextrose he began to come back around to his baseline mental status. In the emergency department he was noted to have blood glucose of 66 and was also hypothermic. He was admitted for further management. His change in mental status was due to hypoglycemia which was also no reason why he was hypothermic. At the time of admission patient was back to his baseline mental status and answering questions appropriately and following commands. His blood glucose was maintaining above 100 and his temperature was back to normal. He was noted to be taking glyburide at home and also not always eating his meals. This was likely the reason for his hypoglycemic incident. He reported in the past having a similar incident. He was asked to discontinue his glyburide an d instructed/educated on how to check his blood glucose at home and what the ranges should be. He was also instructed to hold his blood glucose if levels were too low (less than 60) and to consume carbohydrates (i.e. fruit juice). At the time of discharge, patient blood glucose was above 100. He was instructed to hold his diabetic medications for 1 to 2 days upon discharge. Unless, if his blood glucose levels were rising. He was instructed to discontinue his glimepiride. He is going to work with his primary care physician to adjust his insulin and is SGL 2 inhibitor. He has a history of chronic kidney disease. His baseline creatinine is 1.5-1.7. He was informed of this and he reported he would be talking to his primary care physician for possibly being set up with a graining operator. He reported that he was taking potassium supplementations. This was likely the reason for his hyperkalemia upon admission. This was treated with temporizing measures. He was asked to discontinue his potassium supplementation. He was also asked to have repeat blood work done in 2 to 3 days which can be followed up with his primary care physician. Patient at time of discharge was maintaining blood glucose levels, was instructed to increase the frequency of checking his blood glucose at home (his family was also educated about this) as described above. He was back to his baseline mental status. His temperature was within normal limits DISCHARGE MEDICATIONS: Please see below. ALLERGIES: Please see below. PHYSICAL EXAMINATION ON DISCHARGE: General: Lying in bed, no acute distress Head/Neck/Throat: Trachea midline, mucous membranes moist Eyes: Sclera anicteric, PERRLA Thorax: Normal respiratory effort on room air, lungs clear to auscultation bilaterally, no wheezes/rales/rhonchi Cardiovascular: Normal rate, regular rhythm, normal S1, S2; no S3, S4, rubs/gallops/murmurs Abdomen: Bowel sounds present, soft/nontender/nondistended Genitourinary: No CVA tenderness, no Schmid in place Musculoskeletal: Moving all extremities, no edema Skin: Warm, dry Neurologic: AAOx3, speech fluent and goal-directed, no focal deficits, grossly intact LABORATORY DATA: Please see below. IMAGING: CT head: 1. No evidence of acute intracranial abnormality. No evidence of acute infarction, hemorrhage, or mass. 2. Atrophy and microvascular disease. TIME SPENT ON DISCHARGE: 31 minutes. Vital Signs/I&Os Vital Signs Date Time Temp Pulse Resp B/P (MAP) Pulse Ox O2 Delivery O2 Flow Rate FiO2 03/21/21 08:03 78 142/74 03/21/21 06:00 98.1 18 98 Room Air I&O- Last 24 Hours up to 6 AM 03/21/21 05:59 Intake Total 1710 ml Output Total 1100 ml Balance 610 ml Laboratory Data Labs 24H Laboratory Tests 2 03/20/21 13:43: POC Glucose (Misc Panel) 101, POC Sodium (Misc Panel) 139, POC Potassium (Misc Panel) 5.6H, POC Chloride (Misc Panel) 108, POC Total CO2 (Misc Panel) 20.0L, POC Blood Urea Nitrogen (Misc Panel 30H, POC Ionized Calcium (Misc Panel) 5.4H, POC Creatinine (Misc Panel) 1.6H, POC Hematocrit (Misc Panel) 34.0L 03/20/21 14:08: Immature Granulocyte % (Auto) 0.6, Neutrophils (%) (Auto) 66.4H, Lymphocytes (%) (Auto) 26.4, Monocytes (%) (Auto) 5.3, Eosinophils (%) (Auto) 0.8, Basophils (%) (Auto) 0.5, Neutrophils # (Auto) 4.1, Lymphocytes # (Auto) 1.6, Monocytes # (Auto) 0.3, Eosinophils # (Auto) 0.1, Basophils # (Auto) 0.0, Nucleated Red Blood Cells % (auto) 0.0, Urine Color STRAW, Urine Appearance HAZY, Urine pH 5.0, Urine Specific [place] 1.012, Urine Protein 3+H, Urine Glucose (UA) 3+H, Urine Ketones NEGATIVE, Urine Blood 1+H, Urine Nitrite NEGATIVE, Urine Bilirubin NEGATIVE, Urine Urobilinogen 0.2, Urine Leukocyte Esterase NEGATIVE, Urine WBC (Auto) 2, Urine RBC (Auto) 3, Urine Hyaline Casts (Auto) 0, Urine Bacteria (Auto) NEGATIVE, Urine Squamous Epithelial Cells 1, Urine Mucus (Auto) SMALL, Urine Sperm (Auto) , Blood Gas Bicarbonate Standard 18.3L, Arterial Blood pH 7.301L, Arterial Blood Partial Pressure CO2 37.4, Arterial Blood Partial Pressure O2 104.8H, Arterial Blood Total CO2 19.2L, Arterial Blood HCO3 18.0L, Arterial Blood Base Excess -7.7L, Arterial Blood Oxygen Saturation 97.6, Anion Gap 7L, Glomerular Filtration Rate 55.2L, Calcium Level 8.0L, Total Bilirubin 0.3, Direct Bilirubin < 0.1, Aspartate Amino Transf (AST/SGOT) 16, Alanine Aminotransferase (ALT/SGPT) 17, Alkaline Phosphatase 82, Total Creatine Kinase 70, Creatine Kinase MB 5.7H, Creatine Kinase MB Relative Index 8.14H, Troponin I < 0.02, Total Protein 5.5L, Albumin 2.3L, Albumin/Globulin Ratio 0.7, Thyroid Stimulating Hormone (TSH) 0.911, Salicylates Level 1.9L, Acetaminophen Level 3.2L, Ethyl Alcohol Level 0.005 03/20/21 14:18: Urine Opiates Screen NEGATIVE, Urine Methadone Screen NEGATIVE, Urine Ba rbiturates Screen NEGATIVE, Urine Phencyclidine Screen NEGATIVE, Urine Amphetamines Screen NEGATIVE, Urine Benzodiazepines Screen NEGATIVE, Urine Cocaine Metabolite Screen NEGATIVE, Urine Cannabinoids Screen NEGATIVE 03/20/21 14:43: Bedside Glucose (Misc Panel) 62L 03/20/21 16:14: Bedside Glucose (Misc Panel) 114H 03/20/21 17:23: Bedside Glucose (Misc Panel) 138H 03/20/21 17:48: Anion Gap 4L, Glomerular Filtration Rate 51.4L, Lactic Acid Level 0.9, Calcium Level 8.3L, Phosphorus Level 4.7, Magnesium Level 2.0, B-Hydroxybutyrate 1.62 03/20/21 20:42: Bedside Glucose (Misc Panel) 113H 03/20/21 22:12: Anion Gap 3L, Glomerular Filtration Rate 43.5L, Calcium Level 8.5, Phosphorus L evel 4.9, Magnesium Level 2.0 03/21/21 02:40: Bedside Glucose (Misc Panel) 141H 03/21/21 05:47: Anion Gap 4L, Glomerular Filtration Rate 48.4L, Calcium Level 7.8L, Phosphorus Level 4.4, Magnesium Level 1.8, Nucleated Red Blood Cells % (auto) 0.0 03/21/21 09:24: Bedside Glucose (Misc Panel) 121H 03/21/21 11:32: Bedside Glucose (Misc Panel) 102 CBC/BMP Laboratory Tests 03/20/21 14:08 03/20/21 17:48 03/20/21 22:12 03/21/21 05:47 FSBS Laboratory Tests Test 03/20/21 14:43 03/20/21 16:14 03/20/21 17:23 03/20/21 20:42 Range/Units Bedside Glucose (Misc Panel) 62 114 138 113 70-105 MG/DL Test 03/21/21 02:40 03/21/21 09:24 03/21/21 11:32 Range/Units Bedside Glucose (Misc Panel) 141 121 102 70-105 MG/DL Microbiology Microbiology 03/20/21 Respiratory Virus Panel (PCR) ([facility]) - Final, Complete Discharge Medications Scheduled Amlodipine Besylate (Amlodipine Besylate) 5 Mg Tablet, 5 MG PO BID, (Reported) Aspirin (Aspirin EC) 81 Mg Tab, 81 MG PO DAILY, (Reported) Atorvastatin Calcium (Atorvastatin Calcium) 40 Mg Tab, 40 MG PO QHS, (Reported) Carvedilol (Carvedilol) 6.25 Mg Tablet, 6.25 MG PO BID, (Reported) Clopidogrel Bisulfate (Clopidogrel) 75 Mg Tablet, 75 MG PO DAILY, (Reported) Empagliflozin (Jardiance) 25 Mg Tablet, 25 MG PO DAILY, (Reported) Ergocalciferol (Vitamin D2) (Drisdol) 1,250 Mcg Capsule, 50,000 UNITS PO QWEEK, (Reported) MONDAYS Fenofibrate (Fenofibrate) 160 Mg Tab, 160 MG PO DAILY, (Reported) Furosemide (Furosemide) 40 Mg Tablet, 40 MG PO DAILY, (Reported) Hydrochlorothiazide (Hydrochlorothiazide) 12.5 Mg Capsule, 12.5 MG PO DAILY, (Reported) Insulin Glargine,Hum.rec.anlog (Toujeo Solostar) 300 Unit/1 Ml Insuln.pen, 50 UNITS SC QHS, (Reported) Pantoprazole Sodium (Pantoprazole Sodium) 40 Mg Tablet.dr, 40 MG PO DAILY, (Reported) Paroxetine HCl (Paroxetine HCl) 20 Mg Tablet, 20 MG PO DAILY, (Reported) Allergies Coded Allergies: metformin (Verified Adverse Reaction, Mild, DIARRHEA, 01/08/21) PITA INFANTE M.D. Mar 21, 2021 12:18
--- NOTE | 2021-03-24 17:50 | ECGEPIP ---
[facility] - ED Test Date: 2021-03-20 Pat Name: VELMA PHILLIPS Department: Room: - Gender: Male Heater Tender: RAJESH NICKERSON : 1960 Requested By: ALICIA Saavedra Order Number: [id number] Reading MD: Yoselin Perales Measurements Intervals [place] Rate: 82 P: 42 MN: 126 QRS: 16 QRSD: 86 T: 64 QT: 348 QTc: 406 Interpretive Statements probable Normal sinus rhythm - baseline artifact may affect interpretation Electronically Signed on 03-24-2021 17:49:41 EDT by Yoselin Perales
== END 2021-03-21 12:30 | disposition home or self-care (01) | DRG 344 ==
LOC: M ED 13:23 → EDBD 13:23 → M ED INP 16:44 → M MSPAV 18:18
PROVIDERS: ADMIT Internal Medicine; ATTEND Internal Medicine
DX: E11.649 Type 2 diabetes mellitus with hypoglycemia without coma (principal); E11.65 Type 2 diabetes mellitus with hyperglycemia; E11.10 Type 2 diabetes mellitus with ketoacidosis without coma; E11.22 Type 2 diabetes mellitus with diabetic chronic kidney disease; E11.622 Type 2 diabetes mellitus with other skin ulcer; I12.9 Hypertensive chronic kidney disease with stage 1 through stage 4 chronic kidney disease, or unspecified chronic kidney disease; E78.5 Hyperlipidemia, unspecified; F17.210 Nicotine dependence, cigarettes, uncomplicated; N18.9 Chronic kidney disease, unspecified; Z79.4 Long term (current) use of insulin; Z79.899 Other long term (current) drug therapy; Z88.8 Allergy status to other drugs, medicaments and biological substances; Z20.822 Contact with and (suspected) exposure to COVID-19; R68.0 Hypothermia, not associated with low environmental temperature; M86.172 Other acute osteomyelitis, left ankle and foot; E87.5 Hyperkalemia

== ENCOUNTER → 2021-03-24 | Outpatient (REF) | payer BC ==
[~2021-03-24] MED LIST changes: +CLOP75TA2 PO; +PANT40TA29 PO; +POTA1TAB14 PO
[2021-03-24 16:36] LABS: HEMOGLOBIN 11.2 g/dl (13.5-17.5); MEAN CORPUSCULAR HEMOGLOBIN 29.2 pg (27.0-33.0); MEAN CORPUSCULAR HGB CONC 32.9 g/dl (32.0-36.5); MEAN CORPUSCULAR VOLUME 88.8 fl (80.0-96.0); PLATELET COUNT, AUTOMATED 209 10^3/uL (150-450); RED BLOOD COUNT 3.83 10^6/uL (4.30-6.10); WHITE BLOOD COUNT 5.6 10^3/uL (4.0-10.0)
[2021-03-24 17:04] LABS: ALBUMIN 2.2 GM/DL (3.2-5.2); CALCIUM LEVEL 8.4 MG/DL (8.5-10.1); CREATININE FOR GFR 1.58 MG/DL (0.70-1.30); HEMOGLOBIN A1c 7.2 %; POTASSIUM SERUM 4.8 MEQ/L (3.5-5.1); TOTAL PROTEIN 5.2 GM/DL (6.4-8.2)
== END ==
LOC: M LAB REF 15:59
PROVIDERS: ATTEND Surgery
DX: L97.423 Non-pressure chronic ulcer of left heel and midfoot with necrosis of muscle (principal)

== ENCOUNTER → 2021-04-02 | Outpatient (CLI) | payer BC ==
[~2021-04-02] MED LIST changes: -KLOR10TA76 PO; +POTA-136 PO
[2021-04-02 16:50] LABS: CREATININE FOR GFR 1.52 MG/DL (0.70-1.30); GLOMERULAR FILTRATION RATE 50.2 (>56); POTASSIUM SERUM 4.2 MEQ/L (3.5-5.1)
== END ==
LOC: M PLALAB 14:20
PROVIDERS: ATTEND Physician Assistant Medical
DX: E11.621 Type 2 diabetes mellitus with foot ulcer (principal); E87.6 Hypokalemia; N18.31 Chronic kidney disease, stage 3a; L97.509 Non-pressure chronic ulcer of other part of unspecified foot with unspecified severity

== ENCOUNTER → 2021-04-09 | Outpatient (CLI) | payer BC ==
--- NOTE | 2021-04-09 10:19 | REP ---
INDICATION: THYROID NODULE. COMPARISON: CT cervical spine 03/03/2021. TECHNIQUE: Real-time sonographic evaluation of thyroid performed. FINDINGS: Right lobe measures 5.0 x 2.3 x 1.6 cm and left lobe 5.4 x 2.9 x 2.5 cm. In the right lobe there is a 2 mm cyst in the mid aspect and a 2 mm cyst in the lower pole. In the left lobe there is a 2 mm cyst in the upper pole. There is a heterogeneous nodule in the left lower pole which measures 3.2 x 2.1 x 2.7 cm, predominantly solid with few small subcentimeter cystic areas. IMPRESSION: Predominantly solid nodule lower pole left lobe of thyroid with a maximum diameter of 3.2 cm. It is relatively isoechoic. According to TI-RADS criteria, this is a TR 3 lesion. Recommend ultrasound-guided FNA. <Electronically signed by Hoang Babcock > 04/09/21 [id number]
== END ==
LOC: M RAD 09:18
PROVIDERS: ATTEND Physician Assistant Medical
DX: E04.1 Nontoxic single thyroid nodule (principal)

== ENCOUNTER → 2021-05-13 | Outpatient (REF) ==
[~2021-05-13] MED LIST changes: +CLIN-250 PO; -CLIN300C6 PO; +DOXY-443 PO; -DOXY1CAP62 PO
--- NOTE | 2021-05-13 16:27 | REP ---
INDICATION: PAIN. COMPARISON: 08/24/2016 TECHNIQUE: Four views FINDINGS: There are advanced chronic changes seen throughout the right foot with multiple areas of erosive change involving the 1st, 2nd, and 4th metatarsals all stable. There is been previous the rotational osteotomy involving the distal aspect of the 5th metatarsal likely secondary to bunionette surgery. Advanced degenerative changes seen involving the toes of which only 3 remain advanced degenerative changes seen in the midfoot. There is no evidence of an acute osseous abnormality IMPRESSION: Advanced chronic changes <Electronically signed by Bandar Reyes > 05/13/21 [id number]
--- NOTE | 2021-05-13 17:02 | REP ---
INDICATION: PAIN. COMPARISON: None TECHNIQUE: Three views FINDINGS: There is mild posterior disc space narrowing at every level. Vertebral body height and alignment is within normal limits. There is mild anterior lipping at every level. Small marginal osteophytes are seen bilaterally at every level. The pedicles are intact bilaterally. IMPRESSION: Chronic changes as described above. <Electronically signed by Bandar Reyes > 05/13/21 [id number]
== END ==
LOC: M PLAIMG 13:00
PROVIDERS: ATTEND Internal Medicine
DX: M25.571 Pain in right ankle and joints of right foot (principal); M54.50 Low back pain, unspecified

== ENCOUNTER → 2021-05-25 | Outpatient (REF) | payer BC | LOC: M LAB REF 17:10 | PROVIDERS: ATTEND Internal Medicine Endocrinology, Diabetes & Metabolism | DX: E04.1 Nontoxic single thyroid nodule (principal); R89.6 Abnormal cytological findings in specimens from other organs, systems and tissues ==

== ENCOUNTER → 2021-06-18 | Outpatient (CLI) | payer BC ==
[~2021-06-18] MED LIST changes: +HYDR-3490 PO; +TEFL600I IV; +sulfa
[2021-06-18 13:21] LABS: BASO % 0.5 % (0.0-1.0); EOS # 0.1 10^3/uL (0.0-0.5); EOS % 1.4 % (0.0-3.0); HEMATOCRIT 32.6 % (42.0-52.0); HEMOGLOBIN 10.8 g/dl (13.5-17.5); LYMPH # 1.7 10^3/uL (1.5-5.0); LYMPH % 27.4 % (24.0-44.0); MEAN CORPUSCULAR HGB CONC 33.1 g/dl (32.0-36.5); MEAN CORPUSCULAR VOLUME 87.6 fl (80.0-96.0); MONO # 0.4 10^3/uL (0.0-0.8); MONO % 6.1 % (2.0-8.0); NEUTROPHILS % 64.1 % (36.0-66.0); PLATELET COUNT, AUTOMATED 167 10^3/uL (150-450); RED BLOOD COUNT 3.72 10^6/uL (4.30-6.10); WHITE BLOOD COUNT 6.3 10^3/uL (4.0-10.0)
[2021-06-18 13:53] LABS: HEMOGLOBIN A1c 11.8 %
[2021-06-18 13:56] LABS: ALBUMIN 2.5 GM/DL (3.2-5.2); BILIRUBIN,TOTAL 0.4 MG/DL (0.2-1.0); CALCIUM LEVEL 8.9 MG/DL (8.8-10.2); CHOLESTEROL RISK RATIO 4.266 (<5); CREATININE FOR GFR 1.52 MG/DL (0.70-1.30); POTASSIUM SERUM 4.8 MEQ/L (3.5-5.1); TOTAL PROTEIN 5.7 GM/DL (6.4-8.2)
== END ==
LOC: M PLALAB 10:44
PROVIDERS: ATTEND Physician Assistant Medical
DX: E11.621 Type 2 diabetes mellitus with foot ulcer (principal); I10 Essential (primary) hypertension; L97.529 Non-pressure chronic ulcer of other part of left foot with unspecified severity

== ENCOUNTER → 2021-06-18 | Outpatient (REF) | payer BC | LOC: M SFHCADAM 08:41 | PROVIDERS: ATTEND Physician Assistant Medical | DX: I10 Essential (primary) hypertension (principal); E11.621 Type 2 diabetes mellitus with foot ulcer; Z53.8 Procedure and treatment not carried out for other reasons ==

== ENCOUNTER → 2021-06-25 | Outpatient (REF) | payer BC ==
[~2021-06-25] MED LIST changes: -HYDR-3490 PO; -TEFL600I IV; -sulfa
[2021-06-25 18:39] LABS: CREATININE, URINE 52.4 MG/DL; MAU/CREAT RATIO 8702.2 MCG/MG (0.0-30.0)
== END ==
LOC: M LAB REF 17:20
PROVIDERS: ATTEND Internal Medicine Endocrinology, Diabetes & Metabolism
DX: E11.65 Type 2 diabetes mellitus with hyperglycemia (principal)

== ENCOUNTER → 2021-07-03 | Outpatient (REF) | payer BC ==
[~2021-07-03] MED LIST changes: +HYDR-3490 PO; +sulfa
== END ==
LOC: M LAB REF 15:46
PROVIDERS: ATTEND Surgery
DX: L97.423 Non-pressure chronic ulcer of left heel and midfoot with necrosis of muscle (principal)

== ENCOUNTER 2021-07-04 04:59 | Inpatient (IN) | payer BC ==
[~2021-07-04] VITALS: Ht 185.4 cm; Wt 93.9 kg
[~2021-07-04 04:59] MED LIST changes: -HYDR-3490 PO; -sulfa
[2021-07-04] MEDS ORDERED: sulfa (05:19)
[2021-07-04] MEDS ORDERED: NS 1,000 ML IV ONE (05:25)
[2021-07-04] MEDS ORDERED: ACETAMINOPHEN TAB 650MG DOSE (2X325MG) PO ONE (05:25)
[2021-07-04 05:40] LABS: BASO % 0.2 % (0.0-1.0); HEMOGLOBIN 10.4 g/dl (13.5-17.5); LYMPH # 0.4 10^3/uL (1.5-5.0); LYMPH % 3.1 % (24.0-44.0); MEAN CORPUSCULAR HEMOGLOBIN 28.3 pg (27.0-33.0); MEAN CORPUSCULAR HGB CONC 32.5 g/dl (32.0-36.5); MONO # 0.7 10^3/uL (0.0-0.8); MONO % 5.3 % (2.0-8.0); NEUTROPHILS # 12.5 10^3/uL (1.5-8.5); NEUTROPHILS % 90.2 % (36.0-66.0); PLATELET COUNT, AUTOMATED 236 10^3/uL (150-450); RED BLOOD COUNT 3.68 10^6/uL (4.30-6.10); WHITE BLOOD COUNT 13.8 10^3/uL (4.0-10.0)
[2021-07-04] MEDS ORDERED: ONDANSETRON 4MG/2ML VIAL IV ONE (06:10)
[2021-07-04 06:18] LABS: ALBUMIN 1.8 GM/DL (3.2-5.2); BILIRUBIN,DIRECT 0.4 MG/DL (0.0-0.2); BILIRUBIN,TOTAL 0.5 MG/DL (0.2-1.0); C REACTIVE PROTEIN QUANTITATIV 45.3 MG/DL (0.00-0.30); CALCIUM LEVEL 8.3 MG/DL (8.8-10.2); CREATININE FOR GFR 2.86 MG/DL (0.70-1.30); GLOMERULAR FILTRATION RATE 24.1 (>49); POTASSIUM SERUM 3.9 MEQ/L (3.5-5.1); TOTAL PROTEIN 5.7 GM/DL (6.4-8.2)
[2021-07-04] MEDS ORDERED: HYDR-3490 PO (07:55)
[2021-07-04] MEDS ORDERED: HOME MED LIST COMPLETE! XX SCH (08:00)
--- NOTE | 2021-07-04 08:14 | REP ---
INDICATION: foot ulcer, eval for osteo COMPARISON: 01/12/2021 TECHNIQUE: Portable AP, lateral, bilateral oblique views of the left foot FINDINGS: Generalized soft tissue swelling with ulceration and subcutaneous emphysema primarily along the lateral midfoot region is appreciated. Degenerative changes to the osseous structures and evidence for prior partial amputation involving the 5th toe are again noted. There appears to be increased heterogeneous changes involving the midfoot best identified on oblique and lateral views as compared with 01/12/2021 and osteomyelitis cannot definitively be excluded. IMPRESSION: Osteomyelitis cannot be excluded. <Electronically signed by Simon Marrero > 07/04/21 [id number]
--- NOTE | 2021-07-04 08:16 | REP ---
INDICATION: fever COMPARISON: 03/20/2021 TECHNIQUE: Portable AP view of the chest FINDINGS: The mediastinum and cardiac silhouette are stable and within normal limits for portable technique. The lung irizarry are clear without acute consolidation, effusion, or pneumothorax. Skeletal structures are intact. IMPRESSION: No acute cardiopulmonary process appreciated. <Electronically signed by Simon Marrero > 07/04/21 [id number]
[2021-07-04] MEDS ORDERED: GLUCOSE 4GM CHEW TABLET PO PRN (08:25)
[2021-07-04] MEDS ORDERED: DEXTROSE 50% 50 ML SYRINGE IV PRN (08:25)
[2021-07-04] MEDS ORDERED: GLUCAGON INJ 1MG VIAL SC PRN (08:25)
[2021-07-04] MEDS ORDERED: amLODIPine 5 MG TAB PO SCH (09:00)
[2021-07-04] MEDS ORDERED: CARVedilol 6.25 MG TAB PO SCH (09:00)
[2021-07-04] MEDS: PARoxetine 20MG TABLET PO SCH (09:35)
[2021-07-04] MEDS: NS 1,000 ML IV SCH ×2 (09:35→18:54)
[2021-07-04] MEDS ORDERED: VANCOMYCIN HCL 1,000 MG, VIAL MATE ADAPTER 1 EACH in NS 250 ML IV ONE (10:00)
[2021-07-04] MEDS: CLOPIDOGREL 75 MG TAB PO SCH (10:11)
[2021-07-04] MEDS: PANTOPRAZOLE 40MG TAB (PROTONIX) PO SCH (10:11)
[2021-07-04] MEDS: HEPARIN SOD (PORCINE) 5000UNITS/ML 1ML VIAL/SYRINGE SC SCH ×2 (10:12→20:17)
[2021-07-04] MEDS: ASPIRIN 81MG ENTERIC TABLET PO SCH (10:12)
--- NOTE | 2021-07-04 10:20 | CR ---
CONSULTATION DATE: 07/04/2021 REASON FOR CONSULTATION: Left foot infection. HISTORY OF PRESENT ILLNESS: Sheldon Bradshaw is a patient who is well known to me who was actually seen by myself approximately three days ago in the office for a chronic left foot infection. He has been following at wound care center. At the time he was seen in our office, his wounds were looking very good, fully granular without any signs of infection. Over the next couple days, they have worsened. He was seen on Tuesday by Dr. Lay, had some bone removed and overnight has had worsening redness and swelling to his leg for which he was admitted. PAST MEDICAL HISTORY: Includes diabetes with neuropathy, Charcot's foot. SURGICAL HISTORY: Includes bone and metatarsal amputations, both feet. ALLERGIES: METFORMIN. FAMILY HISTORY: Small cell lung cancer. REVIEW OF SYSTEMS: Positive for fevers and chills. VITAL SIGNS: His vitals are examined. Current temp is 99.3. T-max is 102, blood pressure 105/52. LABORATORY DATA: White blood cell count is 13.8. CRP is 45.3, creatinine 2.86. IMAGING STUDIES: Foot x-ray shows previously amputated fifth metatarsal. There is soft tissue emphysema surrounding the remaining base of the fifth metatarsal. Lower extremity examination: There is open ulceration to the plantar foot with largely granular tissue. There is necrotic tissue at the area of concern around the fifth metatarsal base. ASSESSMENT: This is a patient with left foot diabetic foot infection, abscess, possible osteomyelitis. PLAN: We will bring him to the operating room for incision and drainage, bone debridement tomorrow morning, NPO after midnight. Empiric antibiotics have been initiated.
[2021-07-04 10:37] VITALS: BP 109/55
[2021-07-04 10:48] LABS: INR 1.37; PROTHROMBIN TIME 17.3 SECONDS (12.7-14.5)
[2021-07-04 10:49] LABS: PARTIAL THROMBOPLASTIN TIME 54.3 SECONDS (25.9-37.0)
--- NOTE | 2021-07-04 11:45 | HPEPDOC ---
General Date of Admission Jul 04, 2021 at 08:19 Date of Service: Jul 04, 2021 Chief Complaint The patient is a 61-year-old male admitted with a reason for visit of Osteomyelitis Of Left Foot, Sepsis. Source: Patient History of Present Illness Mr. Bradshaw is a 61-year-old man with uncontrolled diabetes mellitus and peripheral artery disease who presents with generalized weakness and found to have sepsis secondary to left foot osteomyelitis. Patient tells me that for the past few days, he has been having chills. Denies any fever. Then in the past 2 days, his appetite has been poor and he has not been eating much. Yesterday, he had seen Dr. Lay who had ordered a wound culture. That evening, he was unable to get out of bed. was concerned and called for ambulance. Patient was brought into the ED for evaluation. He had a fever of 102 and tachycardia of 100. Blood pressures were soft, but he was doing well at room air. WBC elevated at 13.8 and CRP was 45.3. Chest x-ray was negative for acute process. X-ray of the left foot cannot rule out osteomyelitis. Patient exhibited endorgan damage with elevation of creatinine above his baseline. Otherwise, he denies any chest pain, shortness of breath, abdominal pain, diarrhea, or dysuria. On exam, his left foot ulcer is deep. There is some necrosis. I spoke with podiatry, plan for debridement tomorrow. Patient will be admitted for sepsis secondary to left foot osteomyelitis/diabetic foot infection. Home Medications Scheduled Amlodipine Besylate (Amlodipine Besylate) 5 Mg Tablet, 5 MG PO BID, (Reported) Aspirin (Aspirin EC) 81 Mg Tab, 81 MG PO DAILY, (Reported) Atorvastatin Calcium (Atorvastatin Calcium) 40 Mg Tab, 40 MG PO QHS, (Reported) Carvedilol (Carvedilol) 6.25 Mg Tablet, 6.25 MG PO BID, (Reported) Clopidogrel Bisulfate (Clopidogrel) 75 Mg Tablet, 75 MG PO DAILY, (Reported) Empagliflozin (Jardiance) 25 Mg Tablet, 25 MG PO DAILY, (Reported) Ergocalciferol (Vitamin D2) (Drisdol) 1,250 Mcg Capsule, 50,000 UNITS PO QWEEK, (Reported) MONDAYS Fenofibrate (Fenofibrate) 160 Mg Tab, 160 MG PO DAILY, (Reported) Furosemide (Furosemide) 40 Mg Tablet, 40 MG PO DAILY, (Reported) Hydrochlorothiazide (Hydrochlorothiazide) 25 Mg Tablet, 25 MG PO DAILY, (Reported) Insulin Glargine,Hum.rec.anlog (Rodneyhal Azebbasil) 300 Unit/1 Ml Insuln.pen, 12 UNITS SC QHS, (Reported) Pantoprazole Sodium (Pantoprazole Sodium) 40 Mg Tablet.dr, 40 MG PO DAILY, (Reported) Paroxetine HCl (Paroxetine HCl) 20 Mg Tablet, 20 MG PO DAILY, (Reported) Allergies Coded Allergies: metformin (Verified Adverse Reaction, Mild, DIARRHEA, 01/08/21) Past Medical History Medical History 1. 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 Hypertension 3. Osteomyelitis of the right foot status post IV antibiotics 4. Tobacco use disorder (current smoker) 5. Hyper lipidemia and hypertriglyceridemia (triglycerides has been as high as 400 in the past) 6. Chronic right foot pain 7. Allergic rhinitis 8. GERD 9. Anemia of chronic disease 10. General anxiety disorder Surgical History 1. Right foot debridement for osteomyelitis 2. Screw placed in right foot fifth toe 3. Right foot bunion removed 4. Toe amputation 5. Right foot surgery (bone removed 6. Right fourth toe foot 7. Multiple debridements of the right foot 8. Left foot surgery x2 Family History Father: Estranged Mother: History of lung cancer Social History * Smoker: current smoker Alcohol: Denies Drugs: denies A-FIB/CHADSVASC A-FIB History Current/History of A-Fib/PAF?: No Review of Systems Constitutional: Reports: Chills; Denies: Fever Eyes: Denies: Vision change ENT: Denies: Sore Throat Skin: Denies: Rash Pulmonary: Denies: Dyspnea, Cough Cardiovascular: Denies: Chest Pain Gastrointestinal: Reports: Other Symptoms (No appetite for the past 2 days); Denies: Abdominal Pain, Diarrhea Genitourinary: Denies: Dysuria Hematologic: Denies: Bruising Neurological: Reports: Numbness Psych: Reports: Anxiety Physical Examination General Exam: Positive: Alert, Cooperative Eye Exam: Positive: EOMI, Other Eye Symptoms (There is crust/gunk seen on eye lash/around eyes); Negative: Sclera icteric ENT Exam: Positive: Atraumatic Neck Exam: Positive: Supple Chest Exam: Positive: Clear to auscultation; Negative: Rales, Rhonchi, Wheezing Heart Exam: Positive: Tachycardic, Regular Rhythm, Other (Patient does have PACs) Abdomen Exam: Positive: Normal bowel sounds, Soft; Negative: Tenderness Skin Exam: Positive: Breakdown (Left foot ulcer) Neuro Exam: Positive: Normal Speech, Cranial Nerves 3-12 NL Psych Exam: Positive: Mental status NL, Mood NL Vital Signs Vital Signs Date Time Temp Pulse Resp B/P (MAP) Pulse Ox O2 Delivery O2 Flow Rate FiO2 07/04/21 10:37 99.3 94 18 109/55 (73) 98 Room Air Laboratory Data Labs 24H Laboratory Tests 2 07/04/21 05:26: Immature Granulocyte % (Auto) 1.2, Neutrophils (%) (Auto) 90.2H, Lymphocytes (%) (Auto) 3.1L, Monocytes (%) (Auto) 5.3, Eosinophils (%) (Auto) 0.0, Basophils (%) (Auto) 0.2, Neutrophils # (Auto) 12.5H, Lymphocytes # (Auto) 0.4L, Monocytes # (Auto) 0.7, Eosinophils # (Auto) 0.0, Basophils # (Auto) 0.0, Nucleated Red Blood Cells % (auto) 0.0, Anion Gap 13, Glomerular Filtration Rate 24.1L, Lactic Acid Level 1.4, Calcium Level 8.3L, Total Bilirubin 0.5, Direct Bilirubin 0.4H, Aspartate Amino Transf (AST/SGOT) 29, Alanine Aminotransferase (ALT/SGPT) 18, Alkaline Phosphatase 74, C-Reactive Protein, Quantitative 45.30H, Total Protein 5.7L, Albumin 1.8L, Albumin/Globulin Ratio 0.5, Lipase 24L 07/04/21 10:24: Prothrombin Time 17.3H, Prothromb Time International Ratio 1.37, Activated Partial Thromboplast Time 54.3H CBC/BMP Laboratory Tests 07/04/21 05:26 Microbiology Microbiology 07/04/21 Respiratory Virus Panel (PCR) ([facility]) - Final, Complete 07/04/21 Blood Culture, Received Pending 07/04/21 Blood Culture, Received Pending Assessment/Plan Mr. Bradshaw is a 61-year-old man with uncontrolled diabetes mellitus and peripheral artery disease who presents with generalized weakness and found to have sepsis secondary to left foot osteomyelitis. Patient's generalized weakness is most likely due to his sepsis. No signs of focal neurologic deficits. Dr. Myles had seen the patient a week ago and it looks like the foot is worse now than prior. Anticipate going to the OR tomorrow. Patient will be put on broad-spectrum antibiotics due to diabetic foot infection. Plan / VTE VTE Prophylaxis Ordered?: Yes Plan Plan 1. Sepsis secondary to diabetic foot infection/osteomyelitis of the left foot Patient meets SIRS criteria with fever, leukocytosis, and tachycardia Patient received fluid bolus in the ED. We will continue with IVF Zosyn and vancomycin day 1 2. Diabetic foot infection/osteomyelitis of the left foot Patient last HbA1c was in June 2021. It was 11 Patient has been following with Dr. Lay and Dr. Myles outpatient Dr. Myles consulted, recommendations appreciated Anticipate surgery tomorrow 3. Acute kidney injury on chronic kidney disease stage III Baseline creatinine around 1.5 Creatinine on admission 2.86 Most likely secondary to sepsis Also due to dehydration as patient had a poor oral intake IVF Avoid nephrotoxic agents Supportive care 4. Uncontrolled diabetes mellitus type 2 Sliding scale insulin and Levemir Carbohydrate consistent diet 5. Hypertension Due to sepsis we will hold amlodipine and Coreg 6. Peripheral vascular disease Continue aspirin, Plavix, and atorvastatin 7. Hyperlipidemia Continue atorvastatin 8. Generalized anxiety Continue paroxetine 9. GERD Continue pantoprazole 10. Conjunctivis -Start Ofloxacin 2 drop QID for 5 days 11. DVT prophylaxis Continue heparin Disposition: Pending surgery tomorrow ISIDORO QUIROZ DO Jul 04, 2021 11:20
[2021-07-04 12:07] VITALS: BP 118/56
[2021-07-04] MEDS: HumaLOG INSULIN (NovoLOG) PER UNIT SC SCH ×3 (13:23→20:17)
[2021-07-04] MEDS: PIPERACILLIN/TAZOBACTAM SOD 2.25 GM in D5W MINI-BAG PLUS 50 ML IV SCH ×3 (13:24→23:17)
[2021-07-04] MEDS: OFLOXACIN 0.3 % (OCUFLOX) OPTH SOL 5ML OU SCH ×3 (13:52→20:16)
[2021-07-04 16:14] VITALS: BP 148/65
[2021-07-04] MEDS: ACETAMINOPHEN TAB 650MG DOSE (2X325MG) PO PRN ×2 (16:36→23:47)
[2021-07-04 20:00] VITALS: BP 130/63
[2021-07-04] MEDS: ATORVASTATIN 20 MG TAB PO SCH (20:16)
[2021-07-04] MEDS: LEVEMIR (INSULIN DETEMIR) 1 UNITS/0.01ML SC SCH (20:16)
[2021-07-05] VITALS (10 sets, daily range): BP systolic 113–154; BP diastolic 54–82
[2021-07-05] MEDS: PIPERACILLIN/TAZOBACTAM SOD 2.25 GM in D5W MINI-BAG PLUS 50 ML IV SCH ×4 (04:03→22:58)
[2021-07-05] MEDS: VANCOMYCIN HCL 1,000 MG, VIAL MATE ADAPTER 1 EACH in NS 250 ML IV SCH (06:08)
[2021-07-05] MEDS: NS 1,000 ML IV SCH ×3 (06:09→18:40)
[2021-07-05 06:40] LABS: HEMATOCRIT 27.9 % (42.0-52.0); HEMOGLOBIN 9.2 g/dl (13.5-17.5); MEAN CORPUSCULAR HEMOGLOBIN 28.6 pg (27.0-33.0); MEAN CORPUSCULAR VOLUME 86.6 fl (80.0-96.0); PLATELET COUNT, AUTOMATED 191 10^3/uL (150-450); RED BLOOD COUNT 3.22 10^6/uL (4.30-6.10); WHITE BLOOD COUNT 8.6 10^3/uL (4.0-10.0)
[2021-07-05 07:03] LABS: CALCIUM LEVEL 7.2 MG/DL (8.8-10.2); CREATININE FOR GFR 2.82 MG/DL (0.70-1.30); GLOMERULAR FILTRATION RATE 24.5 (>49); POTASSIUM SERUM 3.5 MEQ/L (3.5-5.1)
[2021-07-05] MEDS: HumaLOG INSULIN (NovoLOG) PER UNIT SC SCH ×4 (07:30→20:32)
[2021-07-05] MEDS ORDERED: LIDOCAINE 2% 100MG/5ML SDV (FOR ANES.) As Ordered ONE (08:30)
[2021-07-05] MEDS ORDERED: propofoL 200 MG/20 ML VIAL As Ordered ONE (08:30)
[2021-07-05] MEDS ORDERED: MIDAZOLAM INJ 2MG/2ML VIAL (J2250 PER 1MG) As Ordered ONE (08:30)
[2021-07-05] MEDS ORDERED: fentaNYL 100 MCG/2 ML INJECTION (J3010) As Ordered ONE (08:30)
[2021-07-05] MEDS ORDERED: LIDOCAINE 1% MDV 20ML VIAL As Ordered ONE (08:33)
[2021-07-05] MEDS ORDERED: BUPIVACAINE HCL 0.5% 10ML VIAL As Ordered ONE (08:33)
[2021-07-05] MEDS: OFLOXACIN 0.3 % (OCUFLOX) OPTH SOL 5ML OU SCH ×5 (09:00→20:32)
[2021-07-05] MEDS: ASPIRIN 81MG ENTERIC TABLET PO SCH (09:00)
[2021-07-05] MEDS: HEPARIN SOD (PORCINE) 5000UNITS/ML 1ML VIAL/SYRINGE SC SCH ×2 (09:00→20:30)
[2021-07-05] MEDS ORDERED: PHENYLephrine 500MCG 5ML (100MCG/ML) SYRINGE As Ordered ONE (10:14)
--- NOTE | 2021-07-05 10:47 | RO ---
OPERATIVE NOTE DATE OF OPERATION: 07/05/2021 PREOPERATIVE DIAGNOSIS: Left foot ulceration and infection. POSTOPERATIVE DIAGNOSIS: Left foot ulceration and infection. PROCEDURE: Left foot incision and drainage and removal of infected bone. SURGEON: Darien Myles DPM RUG REPAIRER: None. ANESTHESIA: Monitored anesthesia care, preop injection of 16 mL of 1:1 mixture of 1% Lidocaine plain and 0.5% Marcaine plain. ESTIMATED BLOOD LOSS: Minimal. MATERIALS: 3-0 nylon. INJECTABLES: None. SPECIMEN: Left 5th metatarsal bone, aerobic and anaerobic cultures. COMPLICATIONS: None. CONDITION: Stable. INDICATIONS: Sheldon Bradshaw is a patient with chronic left foot ulceration. He has been going to the [facility] with improvement but over the last few days the wound had worsened and the foot became red and swollen. He is brought to the ER and noted to have infection and decision was made to bring him to the operating room today for incision and drainage. The patient site and site were identified in the preoperative area. Consent was reviewed and obtained. Risks, complications and alternatives to the procedure were explained to the patient in detail. All questions were answered. DESCRIPTION OF PROCEDURE: The patient was brought operating room on stretcher in supine position. Monitored anesthesia care was delivered by the anesthesia team. Preoperative injection of 16 mL of 1:1 mixture of 1% Lidocaine plain and 0.5% Marcaine plain was injected into the left foot. The left foot was prepped and draped in normal sterile fashion. No tourniquet was utilized during the procedure. Wound was inspected. There was an open area over the remaining portion of the 5th metatarsal. There was exposed necrotic bone and there was some purulent drainage. The remaining portion of the 5th metatarsal base was removed using tenotomy scissors and #15 blade. This was sent for pathology. There was some purulent drainage noted to be tracking along the peroneal tendon. Site was irrigated with normal saline until no further purulent drainage was identified. Partial wound closure was performed with 3-0 nylon. The remaining wound was packed with saline gauze and dry, sterile dressing. The patient will be readmitted to the floor for antibiotics, initiate dressing changes.
[2021-07-05] MEDS ORDERED: ONDANSETRON 4MG/2ML VIAL IV PRN (11:15)
[2021-07-05] MEDS ORDERED: PERCOCET 5MG/325MG TAB PO PRN (11:15)
[2021-07-05] MEDS ORDERED: LR 1,000 ML IV SCH (11:15)
[2021-07-05] MEDS ORDERED: fentaNYL 100 MCG/2 ML INJECTION (J3010) IV PRN (11:15)
[2021-07-05] MEDS: CLOPIDOGREL 75 MG TAB PO SCH (12:56)
[2021-07-05] MEDS: PARoxetine 20MG TABLET PO SCH (12:56)
[2021-07-05] MEDS: PANTOPRAZOLE 40MG TAB (PROTONIX) PO SCH (12:56)
--- NOTE | 2021-07-05 16:33 | REP ---
INDICATION: LA COMPARISON: None TECHNIQUE: Real time marroquin scale ultrasound examination using curved array transducer. FINDINGS: Bilateral kidneys are normal in contour, size, echogenicity, and reniform shape. No hydronephrosis, nephrolithiasis, cystic or renal mass lesion. No perinephric fluid collection. Bladder is normal in appearance. Right kidney measures 12.6 x 5.5 x 5.9 cm. Left kidney measures 14.8 x 7.2 x 6.2 cm. IMPRESSION: 1. Normal renal ultrasound. <Electronically signed by Simon Marrero > 07/05/21 1412
[2021-07-05] MEDS: ACETAMINOPHEN TAB 650MG DOSE (2X325MG) PO PRN (16:48)
--- NOTE | 2021-07-05 16:51 | IPNPDOC ---
Subjective Date Seen The patient was seen on 07/05/21. Subjective Chief Complaint/HPI Mr. Bradshaw is a 61-year-old man with uncontrolled diabetes mellitus and peripheral artery disease who presents with generalized weakness and found to have sepsis secondary to left foot osteomyelitis. Patient was seen this morning prior to going down to the OR. He denied any chest pain or dyspnea. Otherwise, patient has left arm swelling. Will order ultrasound of the left arm. Otherwise blood cultures returned positive today with gram-positive cocci in chains and gram-negative rods. Patient is on broad-spectrum antibiotics with Zosyn and vancomycin. Objective Physical Examination General Exam: Positive: Alert, Cooperative Eye Exam: Positive: EOMI, Other Eye Symptoms (There is crust/gunk seen on eye lash/around eyes); Negative: Sclera icteric ENT Exam: Positive: Atraumatic Neck Exam: Positive: Supple Chest Exam: Positive: Clear to auscultation; Negative: Rales, Rhonchi, Wheezing Heart Exam: Positive: Tachycardic, Regular Rhythm, Other (Patient does have PACs) Abdomen Exam: Positive: Normal bowel sounds, Soft; Negative: Tenderness Skin Exam: Positive: Breakdown (Left foot ulcer) Neuro Exam: Positive: Normal Speech, Cranial Nerves 3-12 NL Psych Exam: Positive: Mental status NL, Mood NL Assessment /Plan Assessment Mr. Bradshaw is a 61-year-old man with uncontrolled diabetes mellitus and peripheral artery disease who presents with generalized weakness and found to have sepsis secondary to left foot osteomyelitis. Patient's generalized weakness is most likely due to his sepsis. No signs of focal neurologic deficits. Dr. Myles had seen the patient a week ago and it looks like the foot is worse now than prior. Patient went to the OR for debridement on 07/05/[address] Myles. Patient will be put on broad-spectrum antibiotics due to diabetic foot infection. Plan/VTE VTE Prophylaxis Ordered?: Yes Plan 1. Sepsis secondary to diabetic foot infection/osteomyelitis of the left foot Patient meets SIRS criteria with fever, leukocytosis, and tachycardia Patient received fluid bolus in the ED. We will continue with IVF Zosyn and vancomycin day 2 Blood cultures grew gram-positive cocci in chains and gram-negative rods 2. Diabetic foot infection/osteomyelitis of the left foot Patient last HbA1c was in June 2021. It was 11 Patient has been following with Dr. Lay and Dr. Myles outpatient Dr. Myles consulted, recommendations appreciated Patient went to the OR for debridement on 07/05/2021 3. Acute kidney injury on chronic kidney disease stage III Baseline creatinine around 1.5 Creatinine on admission 2.86 Most likely secondary to sepsis Also due to dehydration as patient had a poor oral intake IVF Avoid nephrotoxic agents Supportive care Ultrasound of the kidneys negative for obstruction 4. Uncontrolled diabetes mellitus type 2 Sliding scale insulin and Levemir Carbohydrate consistent diet 5. Hypertension Due to sepsis we will hold amlodipine and Coreg 6. Peripheral vascular disease Continue aspirin, Plavix, and atorvastatin 7. Hyperlipidemia Continue atorvastatin 8. Generalized anxiety Continue paroxetine 9. GERD Continue pantoprazole 10. Conjunctivis -Continue ofloxacin 2 drop QID for 5 days 11. DVT prophylaxis Continue heparin Disposition: Pending [facility] tomorrow [facility]O Vital Signs Date Time Temp Pulse Resp B/P (MAP) Pulse Ox O2 Delivery O2 Flow Rate FiO2 07/05/21 16:00 100.1 106 18 148/74 (98) 97 Room Air I&O- Last 24 Hours up to 6 AM 07/05/21 06:00 Intake Total 2010 ml Output Total 725 ml Balance 1285 ml Laboratory Data 24H LABS Laboratory Tests 2 07/04/21 17:49: Urine Color YELLOW, Urine Appearance CLOUDYH, Urine pH 5.0, Urine Specific [place] 1.018, Urine Protein 3+H, Urine Glucose (UA) 3+H, Urine Ketones TRACEH, Urine Blood 1+H, Urine Nitrite NEGATIVE, Urine Bilirubin NEGATIVE, Urine Urobilinogen 0.2, Urine Leukocyte Esterase NEGATIVE, Urine WBC (Auto) 2, Urine RBC (Auto) 3, Urine Hyaline Casts (Auto) 3, Urine Bacteria (Auto) NEGATIVE, Urine Squamous Epithelial Cells 3, Urine Amorphous Sediment SMALLH, Urine Granular Casts (Auto) 1, Urine Mucus (Auto) SMALL, Urine Sperm (Auto) 07/04/21 17:52: Bedside Glucose (Misc Panel) 157H 07/04/21 20:13: Bedside Glucose (Misc Panel) 188H 07/05/21 05:52: Nucleated Red Blood Cells % (auto) 0.0, Anion Gap 11, Glomerular Filtration Rate 24.5L, Calcium Level 7.2L 07/05/21 09:19: Bedside Glucose (Misc Panel) 100 07/05/21 12:06: Bedside Glucose (Misc Panel) 90 CBC/BMP Laboratory Tests 07/05/21 05:52 Microbiology Microbiology 07/05/21 Gastrointestinal Tract Panel (PCR), Received Pending 07/05/21 Gram Stain - Final, Resulted 07/05/21 Wound Culture, Resulted Pending 07/05/21 Anaerobic Culture, Resulted Pending 07/04/21 Gram Stain - Final, Resulted 07/04/21 Wound Culture, Resulted Pending 07/04/21 Respiratory Virus Panel (PCR) ([facility]) - Final, Complete 07/04/21 Blood Culture - Preliminary, Resulted 07/04/21 Blood Culture - Preliminary, Resulted ISIDORO QUIROZ DO Jul 05, 2021 16:50
--- NOTE | 2021-07-05 19:23 | ECGEPIP ---
[facility] - ED Test Date: 2021-07-04 Pat Name: VELMA PHILLIPS Department: Room: - Gender: Male Hospice Bereavement Coordinator: : 1960 Requested By: BALTA Rangel Order Number: [id number] Reading MD: Yoselin Perales Measurements Intervals [place] Rate: 108 P: 101 DE: 100 QRS: 20 QRSD: 102 T: 104 QT: 334 QTc: 447 Interpretive Statements Sinus tachycardia with short DE Nonspecific ST and T wave abnormality Electronically Signed on 07-05-2021 19:23:05 EST by Yoselin Perales
[2021-07-05] MEDS: ATORVASTATIN 20 MG TAB PO SCH (20:30)
[2021-07-05] MEDS: LEVEMIR (INSULIN DETEMIR) 1 UNITS/0.01ML SC SCH (20:32)
[2021-07-06 04:00] VITALS: BP 125/62
[2021-07-06] MEDS: PIPERACILLIN/TAZOBACTAM SOD 2.25 GM in D5W MINI-BAG PLUS 50 ML IV SCH ×4 (05:07→21:52)
[2021-07-06 05:39] LABS: HEMATOCRIT 27.3 % (42.0-52.0); HEMOGLOBIN 8.9 g/dl (13.5-17.5); MEAN CORPUSCULAR HEMOGLOBIN 28.3 pg (27.0-33.0); MEAN CORPUSCULAR HGB CONC 32.6 g/dl (32.0-36.5); MEAN CORPUSCULAR VOLUME 86.9 fl (80.0-96.0); PLATELET COUNT, AUTOMATED 168 10^3/uL (150-450); RED BLOOD COUNT 3.14 10^6/uL (4.30-6.10); WHITE BLOOD COUNT 10.1 10^3/uL (4.0-10.0)
[2021-07-06 06:03] LABS: CALCIUM LEVEL 7.8 MG/DL (8.8-10.2); CREATININE FOR GFR 2.55 MG/DL (0.70-1.30); GLOMERULAR FILTRATION RATE 27.5 (>49); POTASSIUM SERUM 3.5 MEQ/L (3.5-5.1)
[2021-07-06] MEDS: VANCOMYCIN HCL 1,000 MG, VIAL MATE ADAPTER 1 EACH in NS 250 ML IV SCH (06:30)
[2021-07-06 08:20] VITALS: BP 134/65
[2021-07-06] MEDS: PARoxetine 20MG TABLET PO SCH (08:22)
[2021-07-06] MEDS: VITAMIN D 50,000 UNITS CAPSULE (ERGOCALCIFEROL 1.25MG) PO SCH (08:22)
[2021-07-06] MEDS: CLOPIDOGREL 75 MG TAB PO SCH (08:23)
[2021-07-06] MEDS: HumaLOG INSULIN (NovoLOG) PER UNIT SC SCH ×4 (08:23→21:51)
[2021-07-06] MEDS: PANTOPRAZOLE 40MG TAB (PROTONIX) PO SCH (08:23)
[2021-07-06] MEDS: ASPIRIN 81MG ENTERIC TABLET PO SCH (08:23)
[2021-07-06] MEDS: HEPARIN SOD (PORCINE) 5000UNITS/ML 1ML VIAL/SYRINGE SC SCH ×2 (08:24→21:50)
[2021-07-06] MEDS: OFLOXACIN 0.3 % (OCUFLOX) OPTH SOL 5ML OU SCH ×4 (08:24→21:00)
[2021-07-06 10:11] LABS: TOTAL 25(OH) VITAMIN D 29.6 NG/ML (30.0-100.0)
[2021-07-06 11:51] VITALS: BP 146/67
[2021-07-06 15:45] VITALS: BP 162/72
[2021-07-06] MEDS: ACETAMINOPHEN TAB 650MG DOSE (2X325MG) PO PRN (15:48)
[2021-07-06 20:00] VITALS: BP 137/61
--- NOTE | 2021-07-06 21:10 | IPNPDOC ---
Subjective Date Seen The patient was seen on 07/06/21. Subjective Chief Complaint/HPI Mr. Bradshaw is a 61-year-old man with uncontrolled diabetes mellitus and peripheral artery disease who presents with generalized weakness and found to have sepsis secondary to left foot osteomyelitis. Patient was seen this morning. He was feeling better. Denied any chest pain or dyspnea. Patient's blood cultures had returned with Staph aureus, Steptococcus Group G, and Proteus mirabilis. These organisms are similar to the wound culture of the feet. I ordered for repeat blood cultures. ID was consulted for gram positive and gram negative bacteremia. Objective Physical Examination General Exam: Positive: Alert, Cooperative Eye Exam: Positive: EOMI; Negative: Sclera icteric ENT Exam: Positive: Atraumatic Neck Exam: Positive: Supple Chest Exam: Positive: Clear to auscultation; Negative: Rales, Rhonchi, Wheezing Heart Exam: Positive: Tachycardic, Regular Rhythm, Other (Patient does have PACs) Abdomen Exam: Positive: Normal bowel sounds, Soft; Negative: Tenderness Skin Exam: Positive: Breakdown (Left foot ulcer) Neuro Exam: Positive: Normal Speech, Cranial Nerves 3-12 NL Psych Exam: Positive: Mental status NL, Mood NL Assessment /Plan Assessment Mr. Bradshaw is a 61-year-old man with uncontrolled diabetes mellitus and peripheral artery disease who presents with generalized weakness and found to have sepsis secondary to left foot osteomyelitis. Patient's generalized weakness is most likely due to his sepsis. No signs of focal neurologic def icits. Dr. Myles had seen the patient a week ago and it looks like the foot is worse now than prior. Patient went to the OR for debridement on 07/05/[address] Myles. Patient will be put on broad-spectrum antibiotics due to diabetic foot infection. Plan/VTE VTE Prophylaxis Ordered?: Yes Plan 1. Sepsis secondary to diabetic foot infection/osteomyelitis of the left foot Patient meets SIRS criteria with fever, leukocytosis, and tachycardia Patient received fluid bolus in the ED. We will continue with IVF Zosyn and vancomycin day 3 Blood cultures grew gram-positive cocci in chains and gram-negative rods 2. Diabetic foot infection/osteomyelitis of the left foot Patient last HbA1c was in June 2021. It was 11 Patient has been following with Dr. Lay and Dr. Myles outpatient Dr. Myles consulted, recommendations appreciated Patient went to the OR for debridement on 07/05/2021 3. Acute kidney injury on chronic kidney disease stage III Baseline creatinine around 1.5 Creatinine on admission 2.86 Most likely secondary to sepsis Also due to dehydration as patient had a poor oral intake IVF Avoid nephrotoxic agents Supportive care Ultrasound of the kidneys negative for obstruction 4. Uncontrolled diabetes mellitus type 2 Sliding scale insulin and Levemir Carbohydrate consistent diet 5. Hypertension Due to sepsis we will hold amlodipine and Coreg 6. Peripheral vascular disease Continue aspirin, Plavix, and atorvastatin 7. Hyperlipidemia Continue atorvastatin 8. Generalized anxiety Continue paroxetine 9. GERD Continue pantoprazole 10. Conjunctivis -Continue ofloxacin 2 drop QID for 5 days 11. DVT prophylaxis Continue heparin Disposition: Pending echocardiogram and culture results VS, I&O, 24H, [facility] Vital Signs/I&O Vital Signs Date Time Temp Pulse Resp B/P (MAP) Pulse Ox O2 Delivery O2 Flow Rate FiO2 07/06/21 20:00 100.1 96 18 137/61 (86) 97 Room Air I&O- Last 24 Hours up to 6 AM 07/06/21 06:00 Intake Total 1570 ml Output Total 1745 ml Balance -175 ml Laboratory Data 24H LABS Laboratory Tests 2 07/06/21 05:25: Nucleated Red Blood Cells % (auto) 0.0, Anion Gap 9, Glomerular Filtration Rate 27.5L, Calcium Level 7.8L, Vancomycin Level Trough 15.7 07/06/21 11:51: Bedside Glucose (Misc Panel) 147H 07/06/21 17:03: Bedside Glucose (Misc Panel) 225H CBC/BMP Laboratory Tests 07/06/21 05:25 Microbiology Microbiology 07/06/21 Blood Culture, Received Pending 07/06/21 Blood Culture, Received Pending 07/05/21 Gastrointestinal Tract Panel (PCR) - Final, Complete 07/05/21 Gram Stain - Final, Resulted 07/05/21 Wound Culture, Resulted Pending 07/05/21 Anaerobic Culture, Resulted Pending 07/04/21 Gram Stain - Final, Resulted 07/04/21 Wound Culture - Preliminary, Resulted Proteus Mirabilis Streptococcus Group G Staphylococcus Aureus 07/04/21 Respiratory Virus Panel (PCR) ([facility]) - Final, Complete 07/04/21 Blood Culture - Preliminary, Resulted Proteus Mirabilis Streptococcus Group G 07/04/21 Blood Culture - Preliminary, Resulted Staphylococcus Aureus ISIDORO QUIROZ DO Jul 06, 2021 21:10
[2021-07-06] MEDS: ATORVASTATIN 20 MG TAB PO SCH (21:50)
[2021-07-06] MEDS: LEVEMIR (INSULIN DETEMIR) 1 UNITS/0.01ML SC SCH (21:51)
[2021-07-07] VITALS: BP 144/67
[2021-07-07 04:00] VITALS: BP 140/64
[2021-07-07] MEDS: PIPERACILLIN/TAZOBACTAM SOD 2.25 GM in D5W MINI-BAG PLUS 50 ML IV SCH (04:25)
[2021-07-07 05:22] LABS: HEMATOCRIT 27.3 % (42.0-52.0); HEMOGLOBIN 8.9 g/dl (13.5-17.5); MEAN CORPUSCULAR HGB CONC 32.6 g/dl (32.0-36.5); MEAN CORPUSCULAR VOLUME 85.8 fl (80.0-96.0); PLATELET COUNT, AUTOMATED 135 10^3/uL (150-450); RED BLOOD COUNT 3.18 10^6/uL (4.30-6.10); WHITE BLOOD COUNT 10.2 10^3/uL (4.0-10.0)
[2021-07-07 05:57] LABS: C REACTIVE PROTEIN QUANTITATIV 21.4 MG/DL (0.00-0.30); CALCIUM LEVEL 7.4 MG/DL (8.8-10.2); CREATININE FOR GFR 2.34 MG/DL (0.70-1.30); GLOMERULAR FILTRATION RATE 30.4 (>49); POTASSIUM SERUM 2.9 MEQ/L (3.5-5.1)
--- NOTE | 2021-07-07 06:13 | IPN ---
PROGRESS NOTE DATE: 07/06/2021 SUBJECTIVE: The patient was seen and examined. He states a little pain in his foot. Otherwise no overnight issues. OBJECTIVE: PHYSICAL EXAMINATION: VITAL SIGNS: He remained afebrile, T-max was 100.1. EXTREMITIES: Lower extremity examination no erythema, no edema, slightly improved. There remains some necrotic tissue in the wound. No further purulence is drained. LABORATORY STUDIES: White blood cell count is 10.1. Wound cultures thus far are growing proteus strep G and staph aureus, methicillin sensitive. ASSESSMENT: A 61-year-old diabetic male with osteomyelitis status post bone resection and incision and drainage. PLAN: 1. Continue antibiotics. 2. Infectious Disease has been consulted. 3. Continue Vashe and Hydrofera Blue dressing changes. We will follow.
--- NOTE | 2021-07-07 06:34 | ECHO ---
ECHOCARDIOGRAM DATE OF PROCEDURE: 07/06/2021 Age: Gender: M Height: 185 cm Weight: 88 kg REFERRING PHYSICIAN: Wallace Gordon DO INDICATION: Bacteremia. MEASUREMENTS: IVS: 1.4 LV: 4.5 LVPW: 1.3 LA: 4.3 Aorta: 3.8 Left atrial volume index: 47 IVC: 1.9 Mitral E wave velocity is 101; A wave 81 E prime septal: 6.7 E prime lateral: 9.0 FINDINGS: This study is of good technical quality; underlying sinus rhythm. Left ventricle has normal size and systolic function with estimated ejection fraction (EF) approximately 60%. Mild left ventricular hypertrophy (LVH) is noted. Right ventricle is also normal size. Left atrium is severely enlarged. Right atrium appears grossly normal based on limited views. Aortic valve is tricuspid. It is sclerotic but I do not appreciate any distinct vegetation. Mitral valve also exhibits degenerative abnormalities with prominent mitral annular calcifications but no visualized mobile echodensities suggestive of vegetation are seen. Tricuspid valve appears normal. Pulmonic valve was not well seen. No pericardial effusion is noted. Inferior vena cava is upper limits of normal size but grossly collapses with inspiration. Aortic root is normal. Aortic arch and abdominal aorta were not well seen. Doppler interrogation reveals on aortic stenosis or insufficiency. There is trace mitral and trace tricuspid insufficiency. Calculated pulmonary artery pressure is around 50-55 mmHg corresponding to moderate pulmonary hypertension. Mitral inflow pattern and tissue Doppler imaging of mitral annulus revealed grade 2 diastolic dysfunction. CONCLUSIONS: 1. Study is of acceptable technical quality; underlying sinus rhythm. 2. Normal left ventricle (LV) size with mild left ventricular hypertrophy (LVH) and preserved left ventricular (LV) systolic function. Grade 2 diastolic dysfunction. 3. Normal right ventricle (RV). 4. Aortic sclerosis but no significant stenosis or insufficiency. 5. Degenerative abnormalities of mitral valve with no stenosis and trace insufficiency. 6. Likely normal to mildly elevated central venous pressure and moderate pulmonary hypertension. COMMENTS: Obviously, transesophageal echocardiogram will provide much higher sensitivity for detection of valvular vegetations.
[2021-07-07] MEDS ORDERED: POTASSIUM CHLORIDE 10% LIQ 20 MEQ/15 ML UDC PO ONE (06:35)
[2021-07-07] MEDS: HumaLOG INSULIN (NovoLOG) PER UNIT SC SCH ×4 (07:30→21:00)
[2021-07-07 08:00] VITALS: BP 142/65
[2021-07-07] MEDS: OFLOXACIN 0.3 % (OCUFLOX) OPTH SOL 5ML OU SCH ×4 (09:25→21:52)
[2021-07-07] MEDS: PARoxetine 20MG TABLET PO SCH (09:25)
[2021-07-07] MEDS: PANTOPRAZOLE 40MG TAB (PROTONIX) PO SCH (09:25)
[2021-07-07] MEDS: ASPIRIN 81MG ENTERIC TABLET PO SCH (09:25)
[2021-07-07] MEDS: CLOPIDOGREL 75 MG TAB PO SCH (09:25)
[2021-07-07] MEDS: HEPARIN SOD (PORCINE) 5000UNITS/ML 1ML VIAL/SYRINGE SC SCH ×3 (09:25→21:51)
[2021-07-07] MEDS: PIPERACILLIN/TAZOBACTAM SOD 3.375 GM in D5W MINI-BAG PLUS 50 ML IV SCH ×3 (11:28→21:52)
[2021-07-07 12:00] VITALS: BP 145/70
--- NOTE | 2021-07-07 14:37 | CR ---
CONSULTATION DATE: 07/06/2021 REASON FOR CONSULTATION: I was asked to consult by Dr. Stacy for evaluation of chronic osteomyelitis of the left foot with bacteremia and sepsis. HISTORY OF PRESENT ILLNESS: Mr. Bradshaw is a 61-year-old gentleman well known to me with insulin dependent diabetes, uncontrolled, hemoglobin A1c of 11.8. Most recently transferred his care to Dr. Veliz who is helping him with his diabetes control. He has had a chronic left foot infection with osteomyelitis treated in January with IV Zosyn for a total of six weeks. The patient underwent angiogram and angioplasty of the left popliteal artery by Dr. Doll. [facility] with Dr. Lay every one to two weeks, and on 07/03 had debridement following which he developed fever, chills, worsening redness and swelling of the foot and therefore presented to the Emergency Room. The patient's white count was 13.8, C-reactive protein 45. He had positive blood cultures and wound cultures for Staph aureus, group G strep and proteus. He was seen in consultation by Dr. Myles who took him right to the OR for necrotic tissue around the fifth metatarsal with concerns of abscess and osteomyelitis. MEDICAL HISTORY: Significant for insulin dependent diabetes, poorly controlled, hemoglobin A1c of 11.8 with peripheral neuropathy, nephropathy, history of peripheral vascular disease, status post angioplasty of the left popliteal artery, hypertension, osteomyelitis of the right status post amputation of second and fourth toe and courses of antibiotics, tobacco use, hyperlipidemia, allergic rhinitis, gastroesophageal reflux disease, anemia of chronic disease, generalized anxiety disorder. SURGICAL HISTORY: Right foot amputation of second and fourth toe, bunion surgery, debridement done on the left foot in January of 2021. FAMILY HISTORY: Mother with lung cancer. SOCIAL HISTORY: He is . He is a smoker. He denies alcohol or drug use. He is now on disability. He used to work at [employer]. REVIEW OF SYSTEMS: The patient had a fever and shaking chills. He denied any headache, nausea, vomiting. He had some diarrhea and abdominal pain on admission. Denied any chest pain, dyspnea, or shortness of breath. Denied dysuria. He has chronic lower extremity numbness. LABS: White count on admission was 13.8. Today it is 10.1, hemoglobin 8.9, hematocrit 27.3, platelets 168. Sodium 134, potassium 3.5, chloride 104, bicarb 21, BUN 56, creatinine 2.5 down from 2.8. Glucose 132, calcium 7.8. C-reactive protein 45.3. Microbiology: Blood culture was positive for MSSA in one set and positive for proteus mirabilis and group G strep in a second set. Wound culture intraoperatively had proteus, group G strep and Staph aureus. GI panel was negative. Gram stain had shown gram positive cocci in pairs. Wound culture done at the [facility] on 07/03 had MSSA, group G strep, and proteus mirabilis as well. PHYSICAL EXAMINATION: General: He is a sick-looking gentleman in no acute distress. Looks cold, bundled up in blankets. Vital signs: Temperature is 102, pulse 111, respirations 20, blood pressure 162/72, O2 saturation 96% on room air. Heart: Normal S1, S2, tachycardic. No murmurs, rubs or gallops appreciated. Lungs are clear. No wheezes, rales or rhonchi. Abdomen is soft, nontender, no hepatosplenomegaly. Extremities: Right foot, no cyanosis, clubbing, or edema with amputation of second and fourth toe, well healed. Left foot with a large incision laterally along the fifth metatarsal with an ulcer measuring at least 10 x 5 cm with some extension where incision and drainage was done. There are a couple of sutures further. IMPRESSION: Foot MRI was done this morning. The results are still pending. Patient on IV Vancomycin and Zosyn. The patient developed sepsis and bacteremia with three different pathogens probably related to the debridement that was done the day before admission. He had MSSA on cultures and therefore does not need Vancomycin. He should continue on Zosyn. Once repeat blood cultures are negative, the patient could have a PICC line for home IV antibiotics. ALLERGIES: METFORMIN. MEDICATIONS: 1. Piperacillin/Tazobactam 2.25 gm IV every 6 hours. 2. Vancomycin IV every 24 hours will be discontinued. 3. Tylenol as needed for fever. 4. Aspirin 81 mg by mouth daily. 5. Atorvastatin 40 mg by mouth once daily at bedtime. 6. Clopidogrel 75 mg daily. 7. Heparin 5000 units subcutaneously every 12 hours. 8. Levemir 12 units subcutaneously once daily at bedtime. 9. Insulin sliding scale. 10. Ofloxacin ophthalmic solution 2 drops both eyes four times daily. 11. Pantoprazole 40 mg daily. 12. Paxil 20 mg daily. 13. Vitamin D 50,000 units weekly. PLAN: Repeat blood cultures done today. GI panel was negative. Discontinue IV Vancomycin. Continue with IV Zosyn at 2.25 gm every six hours. PICC line if repeat blood cultures are negative. The patient will need home IV antibiotics. MTDD
[2021-07-07] MEDS ORDERED: VANCOMYCIN HCL 1,000 MG, VIAL MATE ADAPTER 1 EACH in NS 250 ML IV SCH ×2 (15:10→16:00)
--- NOTE | 2021-07-07 15:59 | REP ---
INDICATION: Left foot osteo. COMPARISON: Prior preoperative MRI examination dated 05/26/2016. Latest prior plain film 07/04/2021. TECHNIQUE: 3T multiplanar MRI imaging of the left foot was obtained using various sequences. FINDINGS: On 07/05/2021 the patient underwent complete 5th metatarsal ectomy with preservation of a portion of the proximal phalanx of the 5th digit and all of the middle and distal phalanges. There is diffuse T1 and T2 prolongation seen throughout all musculature and adipose tissue of the foot. This is seen in a similar fashion compared to the prior MRI examination but somewhat more extensive. Isolated fluid collections are seen medial and lateral to the 4th metatarsal. There are patchy areas of T2 hyper signal seen throughout the osseous structures of the midfoot with more diffuse appearing T2 hyper signal seen throughout the cuboid. These changes were also seen on the prior MRI but somewhat more subtly or at least better imaged using today's 3 T technique rather than the prior lower field strength technique there is a slightly complex posterior joint effusion abutting the posterior facet. There is joint space narrowing which is irregular and asymmetric involving all mid foot joint spaces and in a fashion increased from the prior MRI. IMPRESSION: 1. There is no definite evidence of osteomyelitis at this time, however, due to the diffuse marrow signal changes seen in the cuboid I would recommend a follow-up exam. 2. Status post 5th metatarsal ectomy with postoperative changes and diffuse soft tissue edema. 3. Small I slated fluid collections both medial and lateral to the proximal diaphysis of the 4th metatarsal. 4. Other findings as described above. <Electronically signed by Bandar Reyes > 07/07/21 2426
[2021-07-07 16:00] VITALS: BP 149/72
--- NOTE | 2021-07-07 16:45 | IPN ---
PROGRESS NOTE DATE: 07/07/2021 SUBJECTIVE: Patient continues to be febrile, low-grade temperature of 100.1 at 8 p.m. last night. Patient complains of 4/10 pain of the left foot. No fever or chills. Patient was found to be tachycardic but denies palpitations, lightheadedness or dizziness. PHYSICAL EXAMINATION: Maximum temperature (T-max) 101.2 on 07/06/2021 at 1545, current temperature 99.1, sinus rhythm, ventricular rate of 112 for pulse, respiratory rate 18, blood pressure 145/70, 98% on room air. GENERAL: Awake, alert, oriented to person, place, and time, answering questions appropriately. No jugular venous distention (JVD), thyromegaly, or cervical lymphadenopathy. LUNGS: Clear to auscultation. No wheezes, rales, or rhonchi. HEART: S1, S2. No S3. No murmurs noted. ABDOMEN: Soft, nontender, nondistended. Positive bowel sounds. EXTREMITIES: The left foot with ulcer, bandages without odors, drainage. LABORATORY DATA: Microbiology and imaging studies, please see the chart. ASSESSMENT AND PLAN: A 61-year-old male with a history of diabetes with A1c of 11.8, peripheral arterial disease with right foot amputation, 2nd and 4th toe bunion surgery, and debridement of the left foot January 2021. Prior history of osteomyelitis of the right foot, status post amputation despite antibiotics, tobacco, hyperlipidemia, allergic rhinitis, reflux, anemia of chronic disease, generalized anxiety disorder, angioplasty of the left popliteal artery, hypertension, and peripheral neuropathy and nephropathy, admitted due to left foot chronic osteomyelitis, now with bacteria with methicillin-resistant Staphylococcus aureus (MRSA) and sepsis. IMPRESSION: 1. Left foot chronic osteomyelitis with MRSA bacteremia. Previous culture of the left foot shows methicillin-sensitive Staphylococcus aureus (MSSA) and group G streptococcus and proteus. Currently utilizing vancomycin and Zosyn. Echocardiogram is negative for endocarditis. Since repeat blood cultures are negative, peripherally inserted central catheter (PICC) line can be placed, and patient can continue antibiotics at home. Defer to Dr. Moran if she would recommend a transesophageal echocardiogram in light of blood culture being positive for MRSA on 07/04/2021. 2. Type 2 diabetes. A1c is uncontrolled. Patient is on Levemir insulin, sliding scale, consistent-carbohydrate diet. 3. Acute kidney injury on chronic kidney disease, stage III, renally dosing his medications, avoiding nephrotoxins. Currently at baseline creatinine. 4. Hypokalemia. Potassium has been supplemented. Magnesium to be checked to see if it needs supplementation. 5. Diabetic foot infection with osteomyelitis with Proteus, MSSA. Could be group G streptococcus on the left foot. Blood culture on admission was MRSA positive. 6. Peripheral arterial disease, continued on aspirin, Plavix, atorvastatin. 7. Hyperlipidemia, on atorvastatin. 8. Conjunctivitis, on ofloxacin two drops four times a day. for 5 days. 9. Generalized anxiety disorder, on chronic paroxetine. 10. Reflux, on chronic Protonix. Monitor for diarrhea.
[2021-07-07 20:00] VITALS: BP 155/71
[2021-07-07] MEDS: LEVEMIR (INSULIN DETEMIR) 1 UNITS/0.01ML SC SCH (21:00)
--- NOTE | 2021-07-07 21:07 | IPN ---
PROGRESS NOTE DATE: 07/07/2021 SUBJECTIVE: The patient is seen and examined. He denies any complaints. Vitals are reviewed. T-max 100.1. OBJECTIVE: PHYSICAL EXAMINATION: EXTREMITIES: Lower extremity erythema and edema are improved. There is some mild necrotic tissue remaining in the wound. LABORATORY STUDIES: White blood cell count is 10.2. CRP is 21.4. IMAGING: Foot MRI shows no obvious signs of osteomyelitis. ASSESSMENT: A 61-year-old diabetic male with osteomyelitis, status post fifth right amputation. PLAN: 1. Continue antibiotics and dressing changes. 2. Infectious Disease is on board. 3. He can be discharged as infection continues to improve.
[2021-07-07] MEDS: ATORVASTATIN 20 MG TAB PO SCH (21:51)
[2021-07-08] VITALS (7 sets, daily range): BP systolic 134–168; BP diastolic 60–80
[2021-07-08] MEDS: PIPERACILLIN/TAZOBACTAM SOD 3.375 GM in D5W MINI-BAG PLUS 50 ML IV SCH ×4 (04:22→23:46)
[2021-07-08 05:58] LABS: HEMATOCRIT 25.9 % (42.0-52.0); HEMOGLOBIN 8.6 g/dl (13.5-17.5); MEAN CORPUSCULAR HEMOGLOBIN 28.5 pg (27.0-33.0); MEAN CORPUSCULAR HGB CONC 33.2 g/dl (32.0-36.5); MEAN CORPUSCULAR VOLUME 85.8 fl (80.0-96.0); PLATELET COUNT, AUTOMATED 139 10^3/uL (150-450); RED BLOOD COUNT 3.02 10^6/uL (4.30-6.10)
[2021-07-08 06:42] LABS: CALCIUM LEVEL 7.5 MG/DL (8.8-10.2); CREATININE FOR GFR 2.26 MG/DL (0.70-1.30); GLOMERULAR FILTRATION RATE 31.7 (>49); POTASSIUM SERUM 2.6 MEQ/L (3.5-5.1)
[2021-07-08] MEDS ORDERED: KCL 10MEQ/100ML SWI (KRUN) 10 MEQ in IV 1 EA IV ONE ×2 (08:00→17:10)
[2021-07-08 08:22] LABS: MAGNESIUM LEVEL 2.4 MG/DL (1.8-2.4)
[2021-07-08] MEDS: PANTOPRAZOLE 40MG TAB (PROTONIX) PO SCH (08:23)
[2021-07-08] MEDS: PARoxetine 20MG TABLET PO SCH (08:23)
[2021-07-08] MEDS: CLOPIDOGREL 75 MG TAB PO SCH (08:24)
[2021-07-08] MEDS: HumaLOG INSULIN (NovoLOG) PER UNIT SC SCH ×4 (08:24→21:00)
[2021-07-08] MEDS: OFLOXACIN 0.3 % (OCUFLOX) OPTH SOL 5ML OU SCH ×4 (08:24→21:23)
[2021-07-08] MEDS: NS 1,000 ML IV SCH ×2 (08:58→17:33)
[2021-07-08] MEDS: HEPARIN SOD (PORCINE) 5000UNITS/ML 1ML VIAL/SYRINGE SC SCH ×2 (09:00→21:22)
[2021-07-08] MEDS ORDERED: MAG SULF 1GM/100ML (MAG RUN) 1 GM in IV 1 EA IV ONE (09:00)
[2021-07-08] MEDS ORDERED: POTASSIUM CHLORIDE 10MEQ SR TABLET PO ONE (09:00)
[2021-07-08] MEDS ORDERED: LIDOCAINE 1% MDV 20ML VIAL As Ordered ONE (09:10)
--- NOTE | 2021-07-08 09:51 | IPN ---
PROGRESS NOTE DATE: 07/08/2021 SUBJECTIVE: Patient continues to have low grade temperatures 100.1, 100.2 despite intravenous vancomycin and Zosyn. Patient's initial blood culture was MRSA on 07/04/2021. Wound cultures on 07/05/2021 showed MSSA, group G Strep and Proteus. Dr. Ernie Moran has been consulted. Patient is going for a PICC line today. Repeat blood cultures on 07/06/2021 and 07/07/2021; 07/06/21 was negative, 07/07/2021 is pending. Patient denies any shortness of breath, chills. He has had low grade temperatures. No chest pain, pressure or tightness, nausea, vomiting, diarrhea, abdominal pain. He complains of 3/10 pain when he is not moving his foot. OBJECTIVE: Vital signs: Temperature 99.6, T-max 100.2, pulse 95 sinus, respiratory rate 18, blood pressure 136/67, 97% on room air. General: Awake, alert, oriented to person, place and time, no distress, answering questions appropriately. Lungs: Clear to auscultation, no wheezes, rhonchi or rales. Heart: S1 and S2 sinus rhythm. Abdomen: Soft, nontender, nondistended. Extremities: Patient has a bandaged left foot. LABORATORY DATA/IMAGING STUDIES/MICROBIOLOGY: Please see the chart. ASSESSMENT: 61-year-old male with a history of diabetes, A1c of 11.8, peripheral arterial disease with right foot amputation of second and fourth toes, hyperlipidemia, allergic rhinitis, tobacco abuse, anxiety, angioplasty of left popliteal artery, hypertension, peripheral neuropathy, nephropathy admitted due to left foot osteomyelitis now with MRSA bacteremia and sepsis. IMPRESSIONS/PLAN: 1. Left foot osteomyelitis with MSSA, group G Strep and proteus: On I.V. Zosyn. I.V. vanco was resumed due to MRSA blood culture positive on 07/05/2021, 1 of 2 sets. Repeat blood cultures on 07/06/2021 were negative. 07/07/2021 blood cultures are pending. ID has been consulted to determine the need for transesophageal echo rule out endocarditis. Patient continues to have low grade temperatures currently on vanco and Zosyn. PICC line ordered; will have outpatient antibiotics. 2. Acute kidney injury: Currently on I.V. fluids with only slight improvement. Vanco is dosed by pharmacy. Avoiding nephrotoxins and renally dosing all medications. Patient is not oliguric. He has adequate urine output. He is not acidotic and he does not have electrolyte imbalance such as hyperkalemia. If patient does not improve over the next 48 hours with his kidney function we will need to ask nephrology to help in management. 3. Type-2 diabetes uncontrolled: Patient's Levemir insulin had recently been increased. Continue to monitor. 4. Hypokalemia: Supplemented. 5. Diabetic foot infection with osteomyelitis with Proteus, MSSA and group G Strep: On I.V. Zosyn, managed by infectious disease. 6. Peripheral arterial disease: On aspirin, Plavix and atorvastatin. 7. Hyperlipidemia: On atorvastatin. 8. Conjunctivitis: To complete ofloxacin for 5 days. 9. Anxiety: On paroxetine. 10. Reflux: On Protonix.
[2021-07-08] MEDS: POTASSIUM CHLORIDE 10MEQ SR TABLET PO SCH ×2 (11:00→11:24)
[2021-07-08] MEDS: ASPIRIN 81MG ENTERIC TABLET PO SCH (11:24)
[2021-07-08] MEDS ORDERED: SODIUM CHLORIDE 0.9% INJ 10 ML SYR IV PRN (11:30)
[2021-07-08] MEDS: KCL 10MEQ/100ML SWI (KRUN) 10 MEQ in IV 1 EA IV SCH ×3 (13:33→17:03)
[2021-07-08 16:54] LABS: POTASSIUM SERUM 3.4 MEQ/L (3.5-5.1); VANCOMYCIN LEVEL TROUGH 17.4 UG/ML (10.0-20.0)
--- NOTE | 2021-07-08 17:21 | REP ---
PROCEDURE NAME: PICC LINE INSERTION W/SITERITE CLINICAL INFORMATION: osteo for prolong abx.. COMPARISON: None. PROCEDURE DESCRIPTION: The procedure was performed by UDAY Foote, under the direct supervision of Dr. Babcock. The risks and benefits of the procedure were explained to the patient and an informed consent was obtained both verbally and written. Directly prior to the start of the procedure a formal time-out was completed in the procedure room. The left basilic vein was localized using ultrasound guidance. The skin was prepped and draped in sterile fashion. Two mL of 1% lidocaine 10 mg/mL was used as a local anesthetic. Using ultrasound guidance the left basilic vein was cannulated, and a 0.018 guidewire was inserted and advanced to the level of SVC using fluoroscopic guidance. The needle was removed and a 5 [place] dilator and peel-away sheath was inserted over the guidewire. A 4.5 [place] single lumen catheter was cut to a length of 42 cm. The dilator was removed and the catheter was inserted over the guidewire with the tip ending at the level of the SVC. The peel-away sheath was removed and the catheter was flushed with heparinized saline as per hospital protocol. The catheter was affixed to the skin and a sterile dressing was applied. The patient tolerated the procedure well and there were no immediate complications. CONCLUSION: PICC line insertion into the left basilic vein. 0.2 minutes of fluoroscopy time was utilized for this procedure. Some fluoroscopic images are performed with last image hold technology. These images require no additional radiation. <Electronically signed by Jada Khoury > 07/08/21 1716 <Electronically signed by Hoang Babcock > 07/08/21 1713
[2021-07-08] MEDS: METOPROLOL TART 25 MG TABLET PO SCH ×2 (17:31→23:44)
[2021-07-08 18:10] LABS: THYROID STIMULATING HORMONE 0.849 uIU/ML (0.358-3.740)
[2021-07-08] MEDS: SODIUM CHLORIDE 0.9% INJ 10 ML SYR IV SCH (18:52)
[2021-07-08] MEDS: VANCOMYCIN HCL 750 MG, VIAL MATE ADAPTER 1 EACH in NS 250 ML IV SCH (18:53)
--- NOTE | 2021-07-08 19:54 | ECGEPIP ---
[facility] Test Date: 2021-07-08 Pat Name: VELMA PHILLIPS Department: Room: [place] [address] Gender: Male [employer] G: REESE : 1960 Requested By: SEE Amin Order Number: [id number] Reading MD: Katherin Mosquera Measurements Intervals [place] Rate: 95 P: 62 ME: 260 QRS: 20 QRSD: 110 T: 95 QT: 366 QTc: 459 Interpretive Statements Sinus rhythm with short ME interval Nonspecific ST and T wave abnormality No change since 07/04/21 Electronically Signed on 07-08-2021 19:54:17 EST by Katherin Mosquera
[2021-07-08] MEDS: ATORVASTATIN 20 MG TAB PO SCH (21:22)
[2021-07-08] MEDS: LEVEMIR (INSULIN DETEMIR) 1 UNITS/0.01ML SC SCH (21:22)
[2021-07-09] VITALS: BP 139/67
[2021-07-09 00:49] LABS: CALCIUM LEVEL 7.3 MG/DL (8.8-10.2); CREATININE FOR GFR 2.27 MG/DL (0.70-1.30); GLOMERULAR FILTRATION RATE 31.5 (>49); MAGNESIUM LEVEL 2.3 MG/DL (1.8-2.4); POTASSIUM SERUM 3.4 MEQ/L (3.5-5.1)
[2021-07-09] MEDS: NS 1,000 ML IV SCH ×3 (03:27→20:31)
[2021-07-09 04:00] VITALS: BP 154/73
[2021-07-09] MEDS: SODIUM CHLORIDE 0.9% INJ 10 ML SYR IV SCH ×2 (06:00→18:00)
[2021-07-09] MEDS: METOPROLOL TART 25 MG TABLET PO SCH ×4 (06:30→22:59)
[2021-07-09] MEDS: PIPERACILLIN/TAZOBACTAM SOD 3.375 GM in D5W MINI-BAG PLUS 50 ML IV SCH ×4 (06:30→22:34)
[2021-07-09 06:55] LABS: HEMATOCRIT 23.9 % (42.0-52.0); HEMOGLOBIN 7.9 g/dl (13.5-17.5); MEAN CORPUSCULAR HEMOGLOBIN 28.5 pg (27.0-33.0); MEAN CORPUSCULAR HGB CONC 33.1 g/dl (32.0-36.5); MEAN CORPUSCULAR VOLUME 86.3 fl (80.0-96.0); PLATELET COUNT, AUTOMATED 148 10^3/uL (150-450); RED BLOOD COUNT 2.77 10^6/uL (4.30-6.10); WHITE BLOOD COUNT 10.7 10^3/uL (4.0-10.0)
[2021-07-09 07:20] LABS: CALCIUM LEVEL 7.4 MG/DL (8.8-10.2); CREATININE FOR GFR 2.25 MG/DL (0.70-1.30); GLOMERULAR FILTRATION RATE 31.8 (>49); POTASSIUM SERUM 3.1 MEQ/L (3.5-5.1)
--- NOTE | 2021-07-09 09:20 | IPN ---
PROGRESS NOTE DATE: 07/07/2021 SUBJECTIVE: He feels better today. He states he wants to go home before [place]. His T-max was 100.1 today, currently 99, pulse 106, respirations 18, blood pressure 149/72, O2 saturation 99% on room air. Heart: Normal S1, S2. No murmurs appreciated. Lungs are clear. No wheezes, rales or rhonchi. Abdomen is soft and nontender. Extremities: No edema. Left foot slightly improved. There is some tissue necrosis around the wound, but no luda purulent discharge, large ulcer along the 5th metatarsal. MEDICATIONS: IV vancomycin and Zosyn. Dose has been changed to 3.375 gm q 6 hours with improved kidney function and vancomycin 1 gm q 24 hours. LABORATORY DATA: White count 10.2, hemoglobin 8.9, hematocrit 27.3, platelets 135. Sodium 134, potassium 2.9, chloride 103, bicarbonate 24, BUN 48, creatinine 2.34, glucose 200, calcium 7.4, C-reactive protein 21.4, down from 45.3. Blood culture had one set methicillin-resistant Staphylococcus aureus (MRSA), another set had proteus and group G strep. Wound culture had methicillin-susceptible Staphylococcus aureus (MSSA), group G strep and proteus mirabilis and the intraoperative culture is still pending with the anaerobes pending. IMPRESSION: 1. Polymicrobial foot infection with chronic osteomyelitis of the first metatarsal, status post I and D. There is diffuse marrow signal changes in the cuboid. There has been a first metatarsectomy. I suspect the patient had polymicrobial bacteremia after the I and D at the outpatient clinic and therefore had three separate pathogens on blood culture. The patient should continue on vancomycin and Zosyn while in the hospital; but as an outpatient, he could be switch to ceftaroline that should cover all pathogens at 600 mg q 12 hours. Make sure he gets a prior authorization for ceftaroline as it is costly. If there is anaerobic culture, please add Flagyl 500 mg by mouth three times a day. 2. Insulin dependent diabetes with sugars ranging between 148 and 279 with neuropathy. PLAN: PICC line will be installed tomorrow. I have written a prescription for ceftaroline 600 mg by mouth every 12 hours that would cover methicillin-resistant Staphylococcus aureus (MRSA), Proteus and group B strep. Please make surge PFS gets a prior authorization. If anaerobic culture is positive, please add Flagyl. The patient needs to have one dose of ceftaroline prior to discharge to make sure she does not have an allergic reaction. I will not be available for the next 10 days. The patient needs to follow up in my office in two weeks. I am available by phone if you have any questions.
[2021-07-09] MEDS: HumaLOG INSULIN (NovoLOG) PER UNIT SC SCH ×4 (09:33→21:00)
[2021-07-09] MEDS: KCL 10MEQ/100ML SWI (KRUN) 10 MEQ in IV 1 EA IV SCH ×4 (09:33→12:22)
[2021-07-09] MEDS: HEPARIN SOD (PORCINE) 5000UNITS/ML 1ML VIAL/SYRINGE SC SCH ×2 (09:33→20:31)
[2021-07-09] MEDS: CLOPIDOGREL 75 MG TAB PO SCH (09:33)
[2021-07-09] MEDS: OFLOXACIN 0.3 % (OCUFLOX) OPTH SOL 5ML OU SCH (09:34)
[2021-07-09] MEDS: PANTOPRAZOLE 40MG TAB (PROTONIX) PO SCH (09:34)
[2021-07-09] MEDS: ASPIRIN 81MG ENTERIC TABLET PO SCH (09:34)
[2021-07-09] MEDS: PARoxetine 20MG TABLET PO SCH (09:34)
[2021-07-09] MEDS: POTASSIUM CHLORIDE 10MEQ SR TABLET PO SCH (09:34)
[2021-07-09 10:16] LABS: HEMATOCRIT 25.5 % (42.0-52.0); HEMOGLOBIN 8.4 g/dl (13.5-17.5)
--- NOTE | 2021-07-09 10:35 | IPN ---
PROGRESS NOTE DATE: 07/09/2021 SUBJECTIVE: T-max overnight was 100.7, current temperature is 97.1. Patient denies any chills, palpitations, lightheadedness, nausea, vomiting, shortness of breath, chest pain, pressure or cough. He complains of pain 4-5/10 of the left foot especially when he moves it around, 2/10 when he does not touch it or move it around. Patient is irritable this morning, wants to go home, wants to sign out Against Medical Advice. "I'm leaving, but I need to talk to my ." OBJECTIVE: Vital signs: Temperature 97.1, T-max 100.7, pulse 83 sinus, respiratory rate 18, blood pressure 159/78, 97% on room air. General: Patient is in no respiratory distress, awake, alert and oriented to person, place and time, answering questions appropriately. Patient is irritated, anxious. HEENT: Dry mucous membranes. Neck: No JVD, thyromegaly or cervical lymphadenopathy. Lungs: Diminished, but clear to auscultation, no wheezes, rhonchi or rales. Heart: S1 and S2 sinus rhythm, no murmurs, rubs or gallops Abdomen: Soft, nontender, nondistended, positive bowel sounds. Extremities: No cyanosis or clubbing. Patient has left foot bandaged. LABORATORY DATA/IMAGING STUDIES/MICROBIOLOGY: Have been reviewed, notable for hemoglobin of 7.9, repeat hemoglobin is pending and platelet count of 148 from admission platelet count of 236. ASSESSMENT: This is a 61-year-old male, A1c of 11.8, type-2 diabetes, peripheral arterial disease with right foot amputation of the second and fourth toes, hyperlipidemia, allergic rhinitis, tobacco abuse, angioplasty left popliteal artery, hypertension, peripheral neuropathy and nephropathy admitted due to left foot osteomyelitis and sepsis with blood culture growing MRSA on 1 of 2 sets on admission. IMPRESSIONS/ROSA: 1. Left foot osteomyelitis with MSSA, group G Strep and Proteus: ID has been consulted. PICC line has been placed. ID to determine the need for transesophageal echo due to 1 of 2 sets of blood cultures growing MRSA with persistent low grade temperatures and fever of 100.7 T-max yesterday at 11:00 a.m. Repeat blood cultures; however, have been negative. Review of wound cultures grew Proteus, MSSA and Group G Strep. Echocardiogram had no signs of endocarditis. Two sets of blood cultures on 07/06/2021 and 07/07/2021 are all negative. PICC line has been placed. Patient is currently on intravenous vancomycin and intravenous Zosyn - both are renally dosed. 2. Acute on chronic renal failure: Baseline creatinine is 1.5, current creatinine is 2.25 not improving with I.V. fluids with episodes of hypokalemia. Patient's potassium has been supplemented. Despite having I.V. fluids for the past 4 days there has been no significant improvement. Nephrology has been consulted. Renal ultrasound will be ordered today. 3. Anemia may be hemodilutional due to recent I.V. fluids: We will recheck H&H, transfuse if hemoglobin is less than 8 with active bleeding otherwise patient is currently asymptomatic. 4. Diabetic foot infection in the setting of chronic peripheral arterial disease: On aspirin, Plavix and atorvastatin. Currently on I.V. vanco and Zosyn with persistent fevers. White count remaining the same at 10.7. We will monitor the patient's C-reactive protein which was 45 on admission and on the was 21.4. 5. Conjunctivitis: Five days of ofloxacin. 6. Hyperlipidemia: On atorvastatin. 7. Anxiety: On paroxetine. 8. Reflux: On Protonix. 9. Disposition: Patient wants to sign out Against Medical Advice. He is medically unstable to be released due to ongoing sepsis from the osteomyelitis with persistent low grade temperatures as well as renal failure. MTDD
[2021-07-09 10:41] LABS: PERCENT SATURATION 20.5 % (19.7-50.0); POTASSIUM SERUM 3.3 MEQ/L (3.5-5.1)
[2021-07-09 12:10] VITALS: BP 162/88
--- NOTE | 2021-07-09 12:13 | CR ---
NEPHROLOGY CONSULTATION DATE: 07/09/2021 REFERRING PHYSICIAN: SEE HWANG MD REASON FOR CONSULTATION: Acute kidney injury superimposed on chronic kidney disease. HISTORY OF PRESENT ILLNESS: Mr. Bradshaw is a 61-year-old male who was admitted to [facility] on July 04 due to osteomyelitis of left foot and sepsis. He is being treated with antibiotics. Patient has developed worsening kidney function and Nephrology consultation was requested today. PAST MEDICAL HISTORY: Significant for: 1. History of Type 2 diabetes, poorly controlled and complicated with peripheral arterial disease, peripheral neuropathy and possible chronic kidney disease. 2. Hypertension. 3. Osteomyelitis of right foot status post IV antibiotics previously. 4. COPD. 5. History of hyperlipidemia. 6. History of gastroesophageal reflux disease. 7. History of anemia. 8. History of generalized anxiety disorder. 9. History of left foot osteomyelitis. PAST SURGICAL HISTORY: Significant for right foot debridement for osteomyelitis, screw placed in right foot fifth toe, right foot bunion removal, two amputations, multiple dbridements of right foot. PERSONAL AND SOCIAL HISTORY: Patient is a current smoker. Denies any alcohol or drug use. FAMILY HISTORY: Significant for lung cancer in his mother. He is not aware of his father's condition. MEDICATIONS: His home medications include: 1. Amlodipine 5 mg b.i.d. 2. Aspirin 81 mg daily. 3. Atorvastatin 40 mg daily. 4. Carvedilol 6.25 mg b.i.d. 5. Plavix 75 mg daily. 6. Jardiance 25 mg daily. 7. Vitamin D 50,000 units once a week. 8. Fenofibrate 160 mg daily. 9. Furosemide 40 mg daily. 10.Hydrochlorothiazide 25 mg daily. 11.Insulin. 12.Toujeo 12 units daily. 13.Protonix 40 mg daily. 14.Paroxetine 20 mg daily. ALLERGIES: He reports an allergy to Metformin. REVIEW OF SYSTEMS: Patient has been trying to sign out against medical advice. He has no fever or chills. He feels that the container coordinator is taking care of his foot problem and he does not need to stay in the hospital. Ears, nose and throat are unremarkable. Cardiovascular system is significant for lower extremity edema. He denies any chest pain or dyspnea. Respiratory system is negative for cough or hemoptysis. GI system is negative for vomiting or diarrhea. system is negative for dysuria or hematuria. Musculoskeletal system is significant for left foot osteomyelitis and prior infections in his right foot, status post toe amputations. Endocrine system is significant for uncontrolled diabetes. Hematological system is significant for anemia. Psychosocial system is significant for generalized anxiety disorder. PHYSICAL EXAMINATION: VITAL SIGNS: Temperature is 97 degrees Fahrenheit, heart rate is 82 per minute and respiratory rate is 18 per minute. Blood pressure is 154/73 mmHg and oxygen saturation 97% on room air. HEAD: Atraumatic. NECK: Supple. JVD is difficult to be assessed. HEART: Heart sounds are regular. LUNGS: Lungs sound clear to auscultation. ABDOMEN: Soft and nontender. Bowel sounds are normal. EXTREMITIES: Without any cyanosis or clubbing. The left foot is wrapped in a dressing. He does have edema in both legs, more on the left than the right. NEUROLOGIC: He is awake, alert and without any focal deficit. LABORATORY DATA: Today's labs shows a sodium of 135, potassium of 3.1 and a repeat potassium is 3.3, BUN 47 and creatinine 2.25. Glucose is 137, calcium is 7.4. His iron level is 18, saturation 20.5% and ferritin 775. Hemoglobin is 8.4 and hematocrit 25.5. PROBLEMS: 1. Acute kidney injury superimposed on chronic kidney disease. Patient does have significant renal dysfunction at present. His kidney function is likely to get worse due to osteomyelitis unless it is treated appropriately. I have discussed with the patient and explained to him as he was trying to sign out against medical advice. I have advised him to stay here in the hospital and receive IV antibiotics to take care of the foot infection which will prevent any further damage to his kidneys. At this point he does not have any uremic symptoms and kidney function is without any significant exchange clerk the last few days. He did have a renal ultrasound done which showed normal size kidneys without any hydronephrosis. 2. Anemia, most likely this is multifactorial as he does have iron deficiency, ongoing infection in his left foot and chronic kidney disease. At present, I will hold off on intravenous iron as he is being treated for osteomyelitis. I would recommend to treat him with oral iron supplement and transfuse as needed. Because of iron deficiency, he is not likely to benefit from Aranesp. 3. Osteomyelitis of the left foot. Patient is currently being treated with Vancomycin and Zosyn. His Vancomycin level was 17.4 yesterday and 15.7 on July 06 which is appropriate. Thank you for involving me in the care of Mr. Bradshaw. I will follow him along with you.
[2021-07-09 13:10] VITALS: BP 161/86
[2021-07-09] MEDS ORDERED: KCL 10MEQ/100ML SWI (KRUN) 100 ML IV ONE (15:00)
[2021-07-09] MEDS: VANCOMYCIN HCL 750 MG, VIAL MATE ADAPTER 1 EACH in NS 250 ML IV SCH (18:57)
[2021-07-09 19:47] VITALS: BP 160/83
[2021-07-09] MEDS: ATORVASTATIN 20 MG TAB PO SCH (20:31)
[2021-07-09] MEDS: LEVEMIR (INSULIN DETEMIR) 1 UNITS/0.01ML SC SCH (20:32)
[2021-07-10] MEDS: PIPERACILLIN/TAZOBACTAM SOD 3.375 GM in D5W MINI-BAG PLUS 50 ML IV SCH ×4 (05:47→23:17)
[2021-07-10] MEDS: SODIUM CHLORIDE 0.9% INJ 10 ML SYR IV SCH ×2 (05:48→18:00)
[2021-07-10] MEDS: METOPROLOL TART 25 MG TABLET PO SCH ×3 (05:48→18:02)
[2021-07-10 09:23] LABS: BASO % 0.3 % (0.0-1.0); EOS # 0.1 10^3/uL (0.0-0.5); EOS % 0.9 % (0.0-3.0); HEMATOCRIT 24.7 % (42.0-52.0); HEMOGLOBIN 7.9 g/dl (13.5-17.5); LYMPH # 1.2 10^3/uL (1.5-5.0); LYMPH % 11.4 % (24.0-44.0); MEAN CORPUSCULAR HEMOGLOBIN 28.1 pg (27.0-33.0); MEAN CORPUSCULAR VOLUME 87.9 fl (80.0-96.0); MONO # 0.6 10^3/uL (0.0-0.8); MONO % 5.6 % (2.0-8.0); NEUTROPHILS # 8.3 10^3/uL (1.5-8.5); NEUTROPHILS % 80.3 % (36.0-66.0); PLATELET COUNT, AUTOMATED 173 10^3/uL (150-450); RED BLOOD COUNT 2.81 10^6/uL (4.30-6.10); WHITE BLOOD COUNT 10.3 10^3/uL (4.0-10.0)
[2021-07-10 09:31] LABS: C REACTIVE PROTEIN QUANTITATIV 12.7 MG/DL (0.00-0.30); CREATININE FOR GFR 2.28 MG/DL (0.70-1.30); GLOMERULAR FILTRATION RATE 31.3 (>49); MAGNESIUM LEVEL 2.2 MG/DL (1.8-2.4); POTASSIUM SERUM 3.8 MEQ/L (3.5-5.1)
[2021-07-10] MEDS: POTASSIUM CHLORIDE 10MEQ SR TABLET PO SCH (09:44)
[2021-07-10] MEDS: PARoxetine 20MG TABLET PO SCH (09:44)
[2021-07-10] MEDS: ASPIRIN 81MG ENTERIC TABLET PO SCH (09:45)
[2021-07-10] MEDS: PANTOPRAZOLE 40MG TAB (PROTONIX) PO SCH (09:45)
[2021-07-10] MEDS: CLOPIDOGREL 75 MG TAB PO SCH (09:45)
[2021-07-10] MEDS: HEPARIN SOD (PORCINE) 5000UNITS/ML 1ML VIAL/SYRINGE SC SCH ×2 (09:45→19:57)
[2021-07-10] MEDS: HumaLOG INSULIN (NovoLOG) PER UNIT SC SCH ×4 (09:46→21:00)
[2021-07-10 10:33] LABS: ERYTHROCYTE SEDIMENTATION RATE 4 mm/hr (0-20)
[2021-07-10 11:01] LABS: BASO % 0.2 % (0.0-1.0); EOS # 0.1 10^3/uL (0.0-0.5); EOS % 0.9 % (0.0-3.0); HEMATOCRIT 27.9 % (42.0-52.0); HEMOGLOBIN 8.9 g/dl (13.5-17.5); LYMPH # 1.6 10^3/uL (1.5-5.0); LYMPH % 10.9 % (24.0-44.0); MEAN CORPUSCULAR HEMOGLOBIN 28.1 pg (27.0-33.0); MEAN CORPUSCULAR HGB CONC 31.9 g/dl (32.0-36.5); MONO # 0.7 10^3/uL (0.0-0.8); MONO % 4.9 % (2.0-8.0); NEUTROPHILS # 11.7 10^3/uL (1.5-8.5); NEUTROPHILS % 80.1 % (36.0-66.0); PLATELET COUNT, AUTOMATED 227 10^3/uL (150-450); RED BLOOD COUNT 3.17 10^6/uL (4.30-6.10); WHITE BLOOD COUNT 14.6 10^3/uL (4.0-10.0)
[2021-07-10 11:24] LABS: ERYTHROCYTE SEDIMENTATION RATE 127 mm/hr (0-20)
--- NOTE | 2021-07-10 11:45 | IPNPDOC ---
Text Note Date of Service The patient was seen on 07/10/21. NOTE Subjective: Patient was seen and examined at bedside. Patient denies having any complaints he was sitting in bed and just completed his breakfast when I went to see him. He denies having any fever, chills, nausea, vomiting, diarrhea . Objective: General: Patient was sitting in bed, does not appear to be in any acute distress. Cardiac: S1 and S2 normal, no murmurs appreciated, regular rate and rhythm. Lungs: Clear bilateral lung irizarry, no wheezes, rhonchi, or rales appreciated. Abdomen: Soft to palpation, no tenderness, positive bowel sounds appreciated in all 4 quadrants. Extremities: He does have about 2+ pitting edema in his left leg and his left leg is wrapped in a bandage below the ankle. Right leg looks okay and has minimal edema. He did have amputation in his right leg as well in the past. Neuro: Patient is alert oriented x3, without any deficits. Assessment/plan: 61-year-old male with extensive past medical history DM type II poorly controlled, peripheral arterial disease, peripheral neuropathy, chronic kidney disease, HTN, HDL, GERD, anemia, osteomyelitis in the past was admitted to [facility] due to osteomyelitis of his left foot and sepsis. She was started on antibiotics. Nephrology was consulted as his kidney functions are worsening. Acute on chronic kidney disease: Patient has a GFR of 31.3 baseline GFR more than 40, creatinine of 2.28 [his baseline is around 1.4-1.9] Likely his worsening kidney function is due to the infection/osteomyelitis. He had an ultrasound which showed normal shape kidneys and normal hydronephrosis. He is currently on NS 100 mils per hour Anemia of chronic disease: Likely due to his CKD vs iron deficiency anemia. -We will keep a watch on his hemoglobin and if needed will supplement with oral /IV Patient has a hemoglobin of 8.9 we will continue to monitor, if hemoglobin is less than 7 we will consider transfusing Osteomyelitis of left foot: He is on vancomycin and Zosyn today would be day 2 Grade 2 diastolic dysfunction: Patient had echocardiogram done on 07/06/2021. Mild LVH and preserved LV EF Mildly elevated central venous pressure and moderate pulmonary hypertension. Hypertension: At home he is on furosemide 40 mg, hydrochlorothiazide 25 mg, amlodipine 5 mg twice daily, carvedilol 6.25 mg In the hospital he is only getting metoprolol 25 mg every 6 hours. VS,Fishbone, I+O VS, Fishbone, I+O Laboratory Tests 07/10/21 08:54 07/10/21 10:47 Vital Signs Date Time Temp Pulse Resp B/P (MAP) Pulse Ox O2 Delivery O2 Flow Rate FiO2 07/10/21 05:48 80 146/81 07/09/21 19:47 99.0 20 98 Room Air I&O- Last 24 Hours up to 6 AM 07/10/21 06:00 Intake Total 2870 ml Output Total 0 ml Balance 2870 ml Lela Newman MD Jul 10, 2021 11:45
--- NOTE | 2021-07-10 13:05 | IPNPDOC ---
Date Seen The patient was seen on 07/10/21. Progress Note SUBJECTIVE: Afebrile overnight no complaints of chills pain is controlled no nausea vomiting. Patient is anxious to go home and wanted to sign out AGAINST MEDICAL ADVICE yesterday, but because of his worsening renal dysfunction, And need for IV antibiotics to be preauthorized by his medical insurance, Patient was encouraged to stay in the hospital. OBJECTIVE: Physical exam: Vital signs: Temp see below General: No distress cooperative eating his breakfast at the bedside HEENT: Moist mucous membranes. Neck: No JVD, thyromegaly or cervical lymphadenopathy. Lungs: Diminished, but clear to auscultation, no wheezes, rhonchi or rales. Heart: S1 and S2 sinus rhythm, no murmurs, rubs or gallops Abdomen: Soft, nontender, nondistended, positive bowel sounds. Extremities: No cyanosis or clubbing. Patient has left foot bandaged. LABORATORY DATA/IMAGING STUDIES/MICROBIOLOGY: Have been reviewed, notable for hemoglobin of 7.9, repeat hemoglobin is pending and platelet count of 148 from admission platelet count of 236. ASSESSMENT: This is a 61-year-old male, A1c of 11.8, type-2 diabetes, peripheral arterial disease with right foot amputation of the second and fourth toes, hyperlipidemia, allergic rhinitis, tobacco abuse, angioplasty left popliteal artery, hypertension, peripheral neuropathy and nephropathy admitted due to left foot osteomyelitis and sepsis with blood culture growing MRSA on 1 of 2 sets on admission. IMPRESSIONS/ROSA: 1. Left foot osteomyelitis with MSSA, group G Strep and Proteus: Still on IV Vanco and Zosyn renally dosed Yesterday to today patient has not had any fevers Patient had transient bacteremia on 07/04/2021 no need for transesophageal echo per infectious disease Recommendations are to continue with ceftaroline as outpatient to be preauthorized by his insurance prior to discharge We will need home care. 2. Acute on chronic renal failure: Baseline creatinine is 1.5, current creatinine is 2.25 not improving with I.V. fluids Defer to nephrology for changes in management. Exacerbated by patient's acute osteomyelitis 3. Anemia may be hemodilutional due to recent I.V. fluids: No acute indication for RBC transfusion defer to nephrology If Venofer is indicated 4. Diabetic foot infection in the setting of chronic peripheral arterial disease: On aspirin, Plavix and atorvastatin. Currently on I.V. vanco and Zosyn with persistent fevers. Slight increase in white count today but will stay the course and C-reactive protein is improving as compared to the CRP on admission 5. Conjunctivitis: Five days of ofloxacin. 6. Hyperlipidemia: On atorvastatin. 7. Anxiety: On paroxetine. 8. Reflux: On Protonix. 9. Disposition: Preauthorizations for ceftaroline prior to discharge, Has worsening white blood cell count today, We will need some improvement with his renal function prior to discharge home VS, I&O, 24H, [facility] Vital Signs/I&O Vital Signs Date Time Temp Pulse Resp B/P (MAP) Pulse Ox O2 Delivery O2 Flow Rate FiO2 07/10/21 12:00 80 138/68 07/09/21 19:47 99.0 20 98 Room Air I&O- Last 24 Hours up to 6 AM 07/10/21 06:00 Intake Total 2870 ml Output Total 0 ml Balance 2870 ml Laboratory Data 24H LABS Laboratory Tests 2 07/09/21 18:05: Vancomycin Level Trough 14.6 07/09/21 18:50: Bedside Glucose (Misc Panel) 212H 07/09/21 20:30: Bedside Glucose (Misc Panel) 240H 07/10/21 05:55: Bedside Glucose (Misc Panel) 168H 07/10/21 08:54: Immature Granulocyte % (Auto) 1.5, Neutrophils (%) (Auto) 80.3H, Lymphocytes (%) (Auto) 11.4L, Monocytes (%) (Auto) 5.6, Eosinophils (%) (Auto) 0.9, Basophils (%) (Auto) 0.3, Neutrophils # (Auto) 8.3, Lymphocytes # (Auto) 1.2L, Monocytes # (Auto) 0.6, Eosinophils # (Auto) 0.1, Basophils # (Auto) 0.0, Nucleated Red Blood Cells % (auto) 0.0, Erythrocyte Sedimentation Rate 4, Anion Gap 9, Glomerular Filtration Rate 31.3L, Calcium Level 7.0L, Whole Blood Ionized Calcium 4.1L, Magnesium Level 2.2, C-Reactive Protein, Quantitative 12.70H 07/10/21 10:47: Immature Granulocyte % (Auto) 3.0, Neutrophils (%) (Auto) 80.1H, Lymphocytes (%) (Auto) 10.9L, Monocytes (%) (Auto) 4.9, Eosinophils (%) (Auto) 0.9, Basophils (%) (Auto) 0.2, Neutrophils # (Auto) 11.7H, Lymphocytes # (Auto) 1.6, Monocytes # (Auto) 0.7, Eosinophils # (Auto) 0.1, Basophils # (Auto) 0.0, Nucleated Red Blood Cells % (auto) 0.0, Erythrocyte Sedimentation Rate 127H 07/10/21 11:29: Bedside Glucose (Misc Panel) 152H CBC/BMP Laboratory Tests 07/10/21 08:54 07/10/21 10:47 Microbiology Microbiology 07/07/21 Blood Culture - Preliminary, Resulted No Growth after 48 hours. All Specime... 07/07/21 Blood Culture - Preliminary, Resulted No Growth after 48 hours. All Specime... 07/06/21 Blood Culture - Preliminary, Resulted No Growth after 72 hours. All specime... 07/06/21 Blood Culture - Preliminary, Resulted No Growth after 72 hours. All specime... 07/05/21 Gastrointestinal Tract Panel (PCR) - Final, Complete 07/05/21 Gram Stain - Final, Complete 07/05/21 Wound Culture - Final, Complete Proteus Mirabilis Staphylococcus Aureus Streptococcus Group G 07/05/21 Anaerobic Culture - Final, Complete 07/04/21 Gram Stain - Final, Complete 07/04/21 Wound Culture - Final, Complete Proteus Mirabilis Streptococcus Group G Staphylococcus Aureus 07/04/21 Respiratory Virus Panel (PCR) ([facility]) - Final, Complete 07/04/21 Blood Culture - Final, Complete Proteus Mirabilis Streptococcus Group G 07/04/21 Blood Culture - Final, Complete Staph.aureus Methicillin Resis SEE HWANG MD Jul 10, 2021 13:05
[2021-07-10 14:00] VITALS: BP 171/84
[2021-07-10] MEDS: NS 1,000 ML IV SCH ×2 (14:16→19:55)
[2021-07-10] MEDS: VANCOMYCIN HCL 750 MG, VIAL MATE ADAPTER 1 EACH in NS 250 ML IV SCH (18:31)
[2021-07-10] MEDS: LEVEMIR (INSULIN DETEMIR) 1 UNITS/0.01ML SC SCH (19:56)
[2021-07-10] MEDS: ATORVASTATIN 20 MG TAB PO SCH (19:57)
[2021-07-10 21:00] VITALS: BP 174/87
[2021-07-11] MEDS: METOPROLOL TART 25 MG TABLET PO SCH ×5 (00:49→23:31)
[2021-07-11] MEDS: PIPERACILLIN/TAZOBACTAM SOD 3.375 GM in D5W MINI-BAG PLUS 50 ML IV SCH ×4 (05:11→23:30)
[2021-07-11] MEDS: NS 1,000 ML IV SCH ×2 (05:11→11:30)
[2021-07-11] MEDS: SODIUM CHLORIDE 0.9% INJ 10 ML SYR IV SCH ×2 (05:12→17:45)
[2021-07-11 05:49] VITALS: BP 146/71
[2021-07-11] MEDS: POTASSIUM CHLORIDE 10MEQ SR TABLET PO SCH (08:55)
[2021-07-11] MEDS: PARoxetine 20MG TABLET PO SCH (08:55)
[2021-07-11] MEDS: HEPARIN SOD (PORCINE) 5000UNITS/ML 1ML VIAL/SYRINGE SC SCH ×2 (08:55→20:22)
[2021-07-11] MEDS: CLOPIDOGREL 75 MG TAB PO SCH (08:55)
[2021-07-11] MEDS: PANTOPRAZOLE 40MG TAB (PROTONIX) PO SCH (08:55)
[2021-07-11] MEDS: ASPIRIN 81MG ENTERIC TABLET PO SCH (08:55)
[2021-07-11] MEDS: HumaLOG INSULIN (NovoLOG) PER UNIT SC SCH ×4 (10:11→21:00)
--- NOTE | 2021-07-11 11:13 | IPNPDOC ---
Date Seen The patient was seen on 07/11/21. Progress Note SUBJECTIVE: awaiting insurance preauthorization approval for ceftaroline doing well, but creatinine unchanged. no fever chills sob urine output adequate. OBJECTIVE: Physical exam: Vital signs: see below General: No distress cooperative anicteric no pallor or cyanosis HEENT: Moist mucous membranes. Neck: No JVD, thyromegaly or cervical lymphadenopathy. Lungs: Diminished, but clear to auscultation, no wheezes, rhonchi or rales. Heart: S1 and S2 sinus rhythm, no murmurs, rubs or gallops Abdomen: Soft, nontender, nondistended, positive bowel sounds. Extremities: No cyanosis or clubbing. Patient has left foot bandaged. LABORATORY DATA/IMAGING STUDIES/MICROBIOLOGY: Have been reviewed, notable for hemoglobin of 7.9, repeat hemoglobin is pending and platelet count of 148 from admission platelet count of 236. ASSESSMENT: This is a 61-year-old male, A1c of 11.8, type-2 diabetes, peripheral arterial disease with right foot amputation of the second and fourth toes, hyperlipidemia, allergic rhinitis, tobacco abuse, angioplasty left popliteal artery, hypertension, peripheral neuropathy and nephropathy admitted due to left foot osteomyelitis and sepsis with blood culture growing MRSA on 1 of 2 sets on admission. IMPRESSIONS/ROSA: 1. Left foot osteomyelitis with MSSA, group G Strep and Proteus: Still on IV Vanco and Zosyn renally dosed Yesterday to today patient has not had any fevers Patient had transient bacteremia on 07/04/2021 no need for transesophageal echo per infectious disease Recommendations are to continue with ceftaroline as outpatient to be preauthorized by his insurance prior to discharge We will need home care. dc plans tuesday if ok w nephrology 2. Acute on chronic renal failure: Baseline creatinine is 1.5, current creatinine is 2.25 not improving with I.V. fluids Defer to nephrology for changes in management. Exacerbated by patient's acute osteomyelitis stable on abx for osteomyelitis, and will be able to dc home as soon as ceftaroline is approved. 3. Anemia may be hemodilutional due to recent I.V. fluids: No acute indication for RBC transfusion defer to nephrology If Venofer is indicated 4. Diabetic foot infection in the setting of chronic peripheral arterial disease: On aspirin, Plavix and atorvastatin. Currently on I.V. vanco and Zosyn with persistent fevers. Slight increase in white count today but will stay the course and C-reactive protein is improving as compared to the CRP on admission 5. Conjunctivitis: Five days of ofloxacin. 6. Hyperlipidemia: On atorvastatin. 7. Anxiety: On paroxetine. 8. Reflux: On Protonix. 9. Disposition: Preauthorizations for ceftaroline prior to discharge VS, I&O, 24H, Fishbone Vital Signs/I&O Vital Signs Date Time Temp Pulse Resp B/P (MAP) Pulse Ox O2 Delivery O2 Flow Rate FiO2 07/11/21 05:49 99.0 79 18 146/71 (96) 95 Room Air I&O- Last 24 Hours up to 6 AM 07/11/21 06:00 Intake Total 0 ml Balance 0 ml Laboratory Data 24H LABS Laboratory Tests 2 07/10/21 11:29: Bedside Glucose (Misc Panel) 152H 07/10/21 16:41: Bedside Glucose (Misc Panel) 156H 07/10/21 19:46: Bedside Glucose (Misc Panel) 209H 07/11/21 07:37: Bedside Glucose (Misc Panel) 185H Microbiology Microbiology 07/07/21 Blood Culture - Preliminary, Resulted No Growth after 72 hours. All specime... 07/07/21 Blood Culture - Preliminary, Resulted No Growth after 72 hours. All specime... 07/06/21 Blood Culture - Preliminary, Resulted No Growth after 72 hours. All specime... 07/06/21 Blood Culture - Preliminary, Resulted No Growth after 72 hours. All specime... 07/05/21 Gastrointestinal Tract Panel (PCR) - Final, Complete 07/05/21 Gram Stain - Final, Complete 07/05/21 Wound Culture - Final, Complete Proteus Mirabilis Staphylococcus Aureus Streptococcus Group G 07/05/21 Anaerobic Culture - Final, Complete 07/04/21 Gram Stain - Final, Complete 07/04/21 Wound Culture - Final, Complete Proteus Mirabilis Streptococcus Group G Staphylococcus Aureus 07/04/21 Respiratory Virus Panel (PCR) ([facility]) - Final, Complete 07/04/21 Blood Culture - Final, Complete Proteus Mirabilis Streptococcus Group G 07/04/21 Blood Culture - Final, Complete Staph.aureus Methicillin Resis SEE HWANG MD Jul 11, 2021 11:13
[2021-07-11 14:00] VITALS: BP 149/72
[2021-07-11] MEDS: VANCOMYCIN HCL 750 MG, VIAL MATE ADAPTER 1 EACH in NS 250 ML IV SCH (18:16)
--- NOTE | 2021-07-11 19:21 | IPN ---
NEPHROLOGY PROGRESS NOTE DATE: 07/11/2021 SUBJECTIVE: Mr. Bradshaw is seen this morning at his bedside. He is laying in his bed without any acute distress. He denies any fevers or chills. He has no dyspnea, chest pain, nausea or vomiting. OBJECTIVE: PHYSICAL EXAMINATION: VITAL SIGNS: Temperature is 98.4 degrees Fahrenheit, heart rate 72 per minute, and respiratory rate 18 per minute. Blood pressure is 150/74 mm of mercury and oxygen saturation is 100%. HEENT: His head is atraumatic. NECK: Supple and without JVD or thyroid enlargement. HEART: Sounds are regular. LUNGS: Clear to auscultation. ABDOMEN: Soft and nontender and bowel sounds are normal. EXTREMITIES: Without any cyanosis or clubbing. Left foot is wrapped in a dressing. There is significant edema on his left leg. NEUROLOGICAL: He is grossly intact. LABORATORY STUDIES: The patient did not have any new labs done today. PROBLEMS: 1. Acute renal failure superimposed on chronic kidney disease the patient's creatinine has been about 2.2 for the last couple of days. We will check his renal profile tomorrow. 2. Left foot osteomyelitis the patient remains afebrile, on Vancomycin and Zosyn. Wound culture did grow staph aureus and proteus. 3. Anemia - at present the patient's anemia is stable and unchanged. CBC will be checked again tomorrow.
[2021-07-11] MEDS: ATORVASTATIN 20 MG TAB PO SCH (20:23)
[2021-07-11] MEDS: LEVEMIR (INSULIN DETEMIR) 1 UNITS/0.01ML SC SCH (20:23)
[2021-07-11 22:00] VITALS: BP 144/69
[2021-07-12] MEDS: NS 1,000 ML IV SCH ×3 (05:00→20:47)
[2021-07-12] MEDS: PIPERACILLIN/TAZOBACTAM SOD 3.375 GM in D5W MINI-BAG PLUS 50 ML IV SCH ×4 (05:41→23:22)
[2021-07-12] MEDS: METOPROLOL TART 25 MG TABLET PO SCH ×4 (05:42→23:22)
[2021-07-12] MEDS: SODIUM CHLORIDE 0.9% INJ 10 ML SYR IV SCH ×2 (05:42→17:48)
[2021-07-12 06:00] VITALS: BP 145/72
[2021-07-12] MEDS: HEPARIN SOD (PORCINE) 5000UNITS/ML 1ML VIAL/SYRINGE SC SCH ×2 (09:00→20:48)
[2021-07-12] MEDS: HumaLOG INSULIN (NovoLOG) PER UNIT SC SCH ×4 (09:06→21:00)
[2021-07-12] MEDS: ASPIRIN 81MG ENTERIC TABLET PO SCH (09:45)
[2021-07-12] MEDS: PARoxetine 20MG TABLET PO SCH (09:45)
[2021-07-12] MEDS: PANTOPRAZOLE 40MG TAB (PROTONIX) PO SCH (09:45)
[2021-07-12] MEDS: CLOPIDOGREL 75 MG TAB PO SCH (09:45)
[2021-07-12 10:16] LABS: ERYTHROCYTE SEDIMENTATION RATE 128 mm/hr (0-20)
[2021-07-12 10:23] LABS: C REACTIVE PROTEIN QUANTITATIV 9.69 MG/DL (0.00-0.30)
[2021-07-12 10:31] LABS: BASO % 0.3 % (0.0-1.0); EOS # 0.2 10^3/uL (0.0-0.5); HEMATOCRIT 23.4 % (42.0-52.0); HEMOGLOBIN 7.6 g/dl (13.5-17.5); LYMPH # 1.3 10^3/uL (1.5-5.0); MEAN CORPUSCULAR HGB CONC 32.5 g/dl (32.0-36.5); MEAN CORPUSCULAR VOLUME 86.3 fl (80.0-96.0); MONO # 0.6 10^3/uL (0.0-0.8); MONO % 4.4 % (2.0-8.0); NEUTROPHILS # 12.1 10^3/uL (1.5-8.5); NEUTROPHILS % 83.4 % (36.0-66.0); PLATELET COUNT, AUTOMATED 213 10^3/uL (150-450); RED BLOOD COUNT 2.71 10^6/uL (4.30-6.10); WHITE BLOOD COUNT 14.5 10^3/uL (4.0-10.0)
[2021-07-12 11:26] LABS: CALCIUM LEVEL 7.2 MG/DL (8.8-10.2); CREATININE FOR GFR 2.12 MG/DL (0.70-1.30); GLOMERULAR FILTRATION RATE 34.1 (>49); POTASSIUM SERUM 3.4 MEQ/L (3.5-5.1)
[2021-07-12] MEDS: POTASSIUM CHLORIDE 10MEQ SR TABLET PO SCH (12:09)
[2021-07-12 12:54] LABS: BASO % 0.3 % (0.0-1.0); EOS # 0.2 10^3/uL (0.0-0.5); EOS % 1.1 % (0.0-3.0); HEMATOCRIT 24.8 % (42.0-52.0); HEMOGLOBIN 7.9 g/dl (13.5-17.5); LYMPH # 1.4 10^3/uL (1.5-5.0); LYMPH % 10.2 % (24.0-44.0); MEAN CORPUSCULAR HEMOGLOBIN 27.8 pg (27.0-33.0); MEAN CORPUSCULAR HGB CONC 31.9 g/dl (32.0-36.5); MEAN CORPUSCULAR VOLUME 87.3 fl (80.0-96.0); MONO # 0.6 10^3/uL (0.0-0.8); NEUTROPHILS # 11.7 10^3/uL (1.5-8.5); NEUTROPHILS % 82.7 % (36.0-66.0); PLATELET COUNT, AUTOMATED 216 10^3/uL (150-450); RED BLOOD COUNT 2.84 10^6/uL (4.30-6.10); WHITE BLOOD COUNT 14.2 10^3/uL (4.0-10.0)
--- NOTE | 2021-07-12 13:09 | IPN ---
PROGRESS NOTE DATE: 07/12/2021 SUBJECTIVE: Patient was seen and examined at the bedside, chart has been reviewed. Patient denies any fever or chills, shortness of breath despite intravenous (IV) fluids. He has no pain and appears comfortable, lying on his right side. PHYSICAL EXAMINATION: VITAL SIGNS: Temperature 98.9, pulse 77, respiratory rate 19, blood pressure 145/72, 96% on room air. GENERAL: Awake, alert, oriented to person, place and time, answering questions appropriately. Appears disheveled. HEENT: Poor dentition, missing teeth and dental caries. No jugular venous distention (JVD) or thyromegaly. LUNGS: Diminished, but clear to auscultation. No wheezing or rales. HEART: S1, S2. Sinus rhythm. ABDOMEN: Soft, nontender, nondistended. Positive bowel sounds. EXTREMITIES: Left foot is bandaged. No cyanosis or clubbing. Trace edema bilaterally. LABORATORY DATA/IMAGING STUDIES/MICROBIOLOGY: Notable for decreasing C-reactive protein (CRP), persistent anemia with hemoglobin of 7.6 from prior 8.9, white count persistently at 14.5 and creatinine is still pending. ASSESSMENT: This is a 61-year-old male with uncontrolled type 2 diabetes, peripheral arterial disease with right foot amputation of second and fourth toes, dyslipidemia, tobacco abuse, left popliteal artery angioplasty, hypertension, peripheral neuropathy and diabetic nephropathy, admitted due to left foot osteomyelitis and sepsis with transient bacteremia with methicillin-resistant Staphylococcus aureus (MRSA) and acute on chronic renal failure, baseline creatinine of 1.5, due to sepsis. IMPRESSION: 1. Left foot osteomyelitis with methicillin sensitive Streptococcus aureus (MSSA), group G Streptococcus and Proteus. 2. Methicillin-resistant Staphylococcus aureus (MRSA) bacteremia. No endocarditis on 2D echocardiogram. Most likely transient from the left foot osteomyelitis. 3. Acute on chronic renal failure secondary to sepsis. 4. Anemia requiring red blood cell (RBC) transfusion, 1 unit. 5. Diabetic neuropathy and nephropathy. 6. Conjunctivitis. 7. Hyperlipidemia. 8. Anxiety. 9. Reflux. PLAN: Patient has persistent elevation of white blood cell count, 14,000, persistent anemia with 7.6, hemoglobin. He is continued on vancomycin and Zosyn that is renally dosed by pharmacy. Will continue with the same. Patient is not exhibiting any diarrhea to be concerned about Clostridium infection. He had one solid bowel movement yesterday. He will be transfused 1 unit of blood today due to persistent anemia with hemoglobin of 7.6. Patient has slight metabolic acidosis. Will defer to nephrology if any changes of intervention. Patient is awaiting approval for ceftaroline. If stable with creatinine, may be discharged home once the antibiotics approved with home care referral as outpatient and weekly CRP and sedimentation rate and metabolic panel with CBC and differential. Per Dr. Moran, patient does not need to be worked up for endocarditis, since the methicillin-resistant Staphylococcus aureus (MRSA) on one of two sets of blood cultures on admission was most likely transient bacteremia from the foot. There are no signs or symptoms of GI as a source for patient's anemia, which is most likely dilutional. There is no bleeding at the site of debridement. WILBERTD
[2021-07-12 14:00] VITALS: BP 137/66
[2021-07-12] MEDS: VANCOMYCIN HCL 750 MG, VIAL MATE ADAPTER 1 EACH in NS 250 ML IV SCH (18:14)
[2021-07-12] MEDS: LEVEMIR (INSULIN DETEMIR) 1 UNITS/0.01ML SC SCH (20:47)
[2021-07-12] MEDS: ATORVASTATIN 20 MG TAB PO SCH (20:47)
[2021-07-12 21:00] VITALS: BP 153/78
[2021-07-13] MEDS: PIPERACILLIN/TAZOBACTAM SOD 3.375 GM in D5W MINI-BAG PLUS 50 ML IV SCH (05:28)
[2021-07-13] MEDS: SODIUM CHLORIDE 0.9% INJ 10 ML SYR IV SCH ×2 (05:29→18:00)
[2021-07-13] MEDS: METOPROLOL TART 25 MG TABLET PO SCH ×4 (05:33→23:26)
[2021-07-13 06:04] LABS: BASO % 0.2 % (0.0-1.0); EOS # 0.2 10^3/uL (0.0-0.5); EOS % 1.3 % (0.0-3.0); HEMATOCRIT 25.9 % (42.0-52.0); HEMOGLOBIN 8.3 g/dl (13.5-17.5); LYMPH # 1.4 10^3/uL (1.5-5.0); LYMPH % 10.1 % (24.0-44.0); MEAN CORPUSCULAR HEMOGLOBIN 28.1 pg (27.0-33.0); MEAN CORPUSCULAR VOLUME 87.8 fl (80.0-96.0); MONO # 0.5 10^3/uL (0.0-0.8); MONO % 3.7 % (2.0-8.0); NEUTROPHILS # 11.7 10^3/uL (1.5-8.5); NEUTROPHILS % 82.9 % (36.0-66.0); PLATELET COUNT, AUTOMATED 262 10^3/uL (150-450); RED BLOOD COUNT 2.95 10^6/uL (4.30-6.10); WHITE BLOOD COUNT 14.1 10^3/uL (4.0-10.0)
[2021-07-13 06:12] VITALS: BP 151/72
[2021-07-13 06:27] LABS: CALCIUM LEVEL 6.9 MG/DL (8.8-10.2); CREATININE FOR GFR 2.03 MG/DL (0.70-1.30); GLOMERULAR FILTRATION RATE 35.8 (>49); POTASSIUM SERUM 3.7 MEQ/L (3.5-5.1)
[2021-07-13] MEDS: HumaLOG INSULIN (NovoLOG) PER UNIT SC SCH ×4 (07:30→21:00)
[2021-07-13] MEDS ORDERED: metroNIDAZOLE 500 MG in IV 1 EA IV SCH (07:40)
[2021-07-13] MEDS: HEPARIN SOD (PORCINE) 5000UNITS/ML 1ML VIAL/SYRINGE SC SCH ×2 (09:00→21:02)
--- NOTE | 2021-07-13 09:04 | IPN ---
PROGRESS NOTE DATE: 07/13/2021 SUBJECTIVE: Patient denies any fever, chills, nausea, vomiting, abdominal pain, cough, shortness of breath. Pain is controlled in the foot. He currently says it is 3/10 when he is not moving. When he does move but has pain medications, it decreases the pain from 7/10 to 4/10 on a pain scale. OBJECTIVE: Vital signs: Temperature 99.3, pulse 82, respiratory rate 18, blood pressure 151/72, 98% on room air. General: The patient is lying on his left lateral side in no distress. HEENT: Poor dentition, dry mucous membranes, no JVD, thyromegaly or cervical lymphadenopathy. Lungs: Diminished but clear to auscultation without wheezing or rales. Heart: S1, S2, sinus rhythm. Abdomen: Soft, nontender, nondistended, positive bowel sounds. Extremities: No cyanosis or clubbing. Patient has some breakthrough bleeding through the bandage of the left foot, no cyanosis or clubbing. Laboratory data, imaging study, microbiology: Please see the chart. ASSESSMENT AND PLAN: This is a 61-year-old male with type 2 diabetes, peripheral arterial disease, right foot amputation of second and fourth toe, dyslipidemia, left popliteal artery angioplasty, hypertension, peripheral neuropathy, diabetic nephropathy, admitted due to left foot osteomyelitis and sepsis with transient bacteremia with MRSA as well as [id number] renal failure based on creatinine of 1.5 due to sepsis. IMPRESSION: 1. Left foot osteomyelitis with MSSA, group G Strep and Proteus as well as transient bacteremia with MRSA and blood cultures on admission but none since. Repeat blood cultures have been negative. No endocarditis was noted on 2D echocardiogram. Per Dr. Ernie Moran, patient most likely had transient bacteremia from osteomyelitis and does not need a transesophageal echocardiogram to rule out endocarditis. The patient is being continued on IV ceftaroline, Flagyl to be added. IV Vancomycin and Zosyn have been discontinued, continue to follow the inflammatory markers for now. If ceftaroline is approved by patient's medical insurance, patient may be discharged home if nephrology is okay with current creatinine, healthcare referral if needed and outpatient followup with Dr. Moran with weekly CRP, sed rate and CBC with differential and metabolic panel. 2. [id number] renal failure secondary to sepsis. Baseline creatinine is 1.5, stage 3. Patient went to stage 4 renal failure, was given IV fluids and managed by nephrology. Currently, patient's GFR is 34, back to stage 3 renal failure, deferred to nephrology if patient is stable for medical discharge or whether we should continue with IV fluids while waiting for insurance coverage of patient's ceftaroline as outpatient. 3. Anemia. Most likely hemodilutional. Patient is to receive IV fluids. He denies any bright red blood per rectum, melena, black tarry stools, gross hematuria despite breakthrough bleeding through the bandage. Patient's hemoglobin remains at 8.3 and his hematocrit of 25.9. He is typed and screened but has not received any blood transfusion yet. 4. Metabolic acidosis due to renal failure. Patient will be given sodium bicarb 650 b.i.d. 5. Type 2 diabetes on insulin sliding scale. Currently controlled 101 to 140 with hypoglycemic protocol. We will decrease Levemir insulin to 10 units q.h.s. from 12 units q.h.s. 6. Dyslipidemia on chronic Lipitor. 7. Peripheral arterial disease. Continue on aspirin, Plavix and heparin subcu for DVT prophylaxis. DISPOSITION: Awaiting approval of insurance for outpatient ceftaroline and nephrology recommendation for discharge. His kidneys are improving but not back to baseline.
--- NOTE | 2021-07-13 09:18 | IPN ---
PROGRESS NOTE DATE: 07/13/2021 SUBJECTIVE: Patient is being examined. States still having some pain in his foot. Denies other complaints. OBJECTIVE: Vitals are reviewed. He has remained afebrile. Lower extremity examination: There is new abscess formation on the top of his foot. This was not noted on any previous examinations when seen on the or subsequently by Dr. Moran on the . He states he thinks it showed up last night. Making a stab incision, a significant amount of purulent drainage was coming from the dorsal foot. Labs were reviewed. White cell count remains elevated at 14.1. ASSESSMENT: A 61-year-old diabetic male with persisting abscess, left foot. PLAN: Will bring him to the operating room tonight for further incision and drainage.
[2021-07-13] MEDS: SODIUM BICARBONATE 325 MG TAB PO SCH ×2 (09:19→21:02)
[2021-07-13] MEDS: NS 1,000 ML IV SCH ×2 (09:19→17:30)
[2021-07-13] MEDS: VITAMIN D 50,000 UNITS CAPSULE (ERGOCALCIFEROL 1.25MG) PO SCH (09:20)
[2021-07-13] MEDS: ASPIRIN 81MG ENTERIC TABLET PO SCH (09:20)
[2021-07-13] MEDS: POTASSIUM CHLORIDE 10MEQ SR TABLET PO SCH (09:21)
[2021-07-13] MEDS: CLOPIDOGREL 75 MG TAB PO SCH (09:21)
[2021-07-13] MEDS: PANTOPRAZOLE 40MG TAB (PROTONIX) PO SCH (09:21)
[2021-07-13] MEDS: PARoxetine 20MG TABLET PO SCH (09:22)
[2021-07-13 10:36] LABS: C REACTIVE PROTEIN QUANTITATIV 8.23 MG/DL (0.00-0.30)
[2021-07-13 11:06] LABS: ERYTHROCYTE SEDIMENTATION RATE 126 mm/hr (0-20)
[2021-07-13] MEDS: CEFTAROLINE FOSAMIL 600 MG in D5W MINI-BAG PLUS 50 ML IV SCH ×2 (12:19→23:21)
[2021-07-13 14:00] VITALS: BP 161/90
--- NOTE | 2021-07-13 14:30 | IPN ---
NEPHROLOGY PROGRESS NOTE DATE: 07/13/2021 SUBJECTIVE: Mr. Bradshaw is seen this morning on his bedside. He is unhappy as he wanted to go home. Nursing staff reports that Dr. Myles has incised the abscess on his foot which is draining and he is likely to go to the OR today. He is currently receiving I.V. fluids at 100 mL per hour. PHYSICAL EXAMINATION: Temperature 99.3 degrees Fahrenheit, heart rate 82 per minute and respiratory rate 18 per minute. Blood pressure 151/72 mmHg and oxygen saturation 98% on room air. Head: Atraumatic. Neck: Supple and without JVD or thyroid enlargement. Heart: Sounds are regular. Lungs: Clear to auscultation. Abdomen: Soft and nontender and bowel sounds are normal. Extremities: Without any cyanosis or clubbing. His left foot is quite swollen and currently has a dressing, but fluid is still leaking on the floor. His left leg is also swollen There is minimal swelling on the right leg. Neurologically: He is at his baseline mentation. MEDICATIONS: Reviewed and he is now on ceftaroline 600 mg q12h. He has also received vancomycin which has now been stopped. Zosyn has also been stopped. Other medications are unchanged. LABORATORY DATA: Today's labs show: WBC count 14.1, hemoglobin 8.3, hematocrit 25.9, platelets 262. Sodium 141, potassium 3.7, CO2 19, BUN 36, creatinine 2.03. C-reactive protein is 8.23. PROBLEMS/PLAN: 1. Acute kidney injury superimposed on chronic kidney disease most likely related to osteomyelitis of his left foot and cellulitis: Kidney function is relatively stable with slight improvement. Electrolytes are stable. 2. Anemia: His anemia is related to iron deficiency and ongoing infection. At this point I am not going to give him any intravenous iron due to active infection. He can probably benefit from transfusion if needed. 3. Left foot infection: Patient seems to have deeper infection with possible osteomyelitis. He is scheduled for OR later today which is appropriate to drain his abscess and clean the wound.
[2021-07-13] MEDS ORDERED: LIDOCAINE 1% MDV 20ML VIAL As Ordered ONE (16:46)
[2021-07-13] MEDS ORDERED: BUPIVACAINE HCL 0.5% 10ML VIAL As Ordered ONE (16:46)
[2021-07-13] MEDS ORDERED: propofoL 200 MG/20 ML VIAL As Ordered ONE (17:34)
[2021-07-13] MEDS ORDERED: LIDOCAINE 2% 100MG/5ML SDV (FOR ANES.) As Ordered ONE (17:34)
[2021-07-13] MEDS ORDERED: MIDAZOLAM INJ 2MG/2ML VIAL (J2250 PER 1MG) As Ordered ONE (17:34)
[2021-07-13] MEDS ORDERED: fentaNYL 100 MCG/2 ML INJECTION (J3010) As Ordered ONE (17:34)
[2021-07-13] MEDS ORDERED: oxyCODONE 5MG TAB PO PRN (18:30)
[2021-07-13] MEDS ORDERED: fentaNYL 100 MCG/2 ML INJECTION (J3010) IV PRN (18:30)
[2021-07-13] MEDS ORDERED: ONDANSETRON 4MG/2ML VIAL IV PRN (18:30)
[2021-07-13 19:30] VITALS: BP 131/64
[2021-07-13 20:30] VITALS: BP 133/63
[2021-07-13] MEDS ORDERED: LEVEMIR (INSULIN DETEMIR) 1 UNITS/0.01ML SC SCH (21:00)
[2021-07-13] MEDS: ATORVASTATIN 20 MG TAB PO SCH (21:01)
--- NOTE | 2021-07-13 21:29 | RO ---
OPERATIVE NOTE DATE OF OPERATION: 07/13/2021 PREOPERATIVE DIAGNOSIS: Left foot infection. POSTOPERATIVE DIAGNOSIS: Left foot infection. PROCEDURE: Left foot incision and drainage. SURGEON: Darien Myles DPM [employer] SUPERINTENDENT: None ANESTHESIA: Monitored anesthesia care, preop injection of 16 mL of a 1:1 mixture of a 1:1 mixture of 1% lidocaine plain, 1/2% Marcaine plain. ESTIMATED BLOOD LOSS: Minimal. MATERIALS: None. COMPLICATION: None. CONDITION: Stable. INDICATIONS: Sheldon Bradshaw is a 61-year-old diabetic male who has been admitted due to left foot infection. He was noted to have persisting white blood cell count. He initially had some improvement noted to his foot. Over the last day, he developed blistering and drainage to the dorsal aspect of his foot. Decision was made to bring him to the operating room for incision and drainage. The patient's site and side were identified and marked in the preoperative area. Consent was reviewed and obtained. The risks, complications and alternatives to the procedure were explained to the patient in detail and all questions were answered. DESCRIPTION OF PROCEDURE: The patient was brought on the stretcher to operating room in supine position. Monitored anesthesia care was delivered by the anesthesia team. A preop injection of 16 mL of a 1:1 mixture of 1% lidocaine plain, 1/2% Marcaine plain was injected in the left foot. The left foot was prepped and draped in normal sterile fashion. No tourniquet was used during the procedure. The foot was inspected. There was a large dorsal abscess on the dorsal aspect of the foot with some necrotic tissue. Using #15 blade, dissection was made, removing the nonviable tissue and the purulent drainage was expressed. The purulence was largely on the dorsal aspect of the foot without significant further necrotic tissue or purulence from the previous debrided lateral wound. Using normal saline and bulb syringe, the area was irrigated until no further purulent drainage was noted. Culture swabs were taken of the purulent drainage. The patient was brought to PACU with vital signs stable, neurovascular status intact. He will remain on the floor for continued antibiotics.
[2021-07-13 21:30] VITALS: BP 130/59
[2021-07-13 22:30] VITALS: BP 167/69
[2021-07-14 02:00] VITALS: BP 144/72
[2021-07-14] MEDS: SODIUM CHLORIDE 0.9% INJ 10 ML SYR IV SCH (05:14)
[2021-07-14] MEDS: METOPROLOL TART 25 MG TABLET PO SCH ×2 (05:15→11:51)
[2021-07-14 05:29] LABS: BASO % 0.3 % (0.0-1.0); EOS # 0.1 10^3/uL (0.0-0.5); EOS % 1.3 % (0.0-3.0); HEMATOCRIT 24.4 % (42.0-52.0); HEMOGLOBIN 7.8 g/dl (13.5-17.5); LYMPH # 1.1 10^3/uL (1.5-5.0); LYMPH % 10.5 % (24.0-44.0); MEAN CORPUSCULAR HEMOGLOBIN 28.1 pg (27.0-33.0); MEAN CORPUSCULAR VOLUME 87.8 fl (80.0-96.0); MONO # 0.4 10^3/uL (0.0-0.8); MONO % 3.9 % (2.0-8.0); NEUTROPHILS # 8.5 10^3/uL (1.5-8.5); NEUTROPHILS % 82.3 % (36.0-66.0); PLATELET COUNT, AUTOMATED 248 10^3/uL (150-450); RED BLOOD COUNT 2.78 10^6/uL (4.30-6.10); WHITE BLOOD COUNT 10.4 10^3/uL (4.0-10.0)
[2021-07-14 06:05] LABS: CREATININE FOR GFR 1.94 MG/DL (0.70-1.30); GLOMERULAR FILTRATION RATE 37.8 (>49)
[2021-07-14] MEDS: HEPARIN SOD (PORCINE) 5000UNITS/ML 1ML VIAL/SYRINGE SC SCH (09:00)
[2021-07-14] MEDS: SODIUM BICARBONATE 325 MG TAB PO SCH (09:28)
[2021-07-14] MEDS: ASPIRIN 81MG ENTERIC TABLET PO SCH (09:29)
[2021-07-14] MEDS: PANTOPRAZOLE 40MG TAB (PROTONIX) PO SCH (09:30)
[2021-07-14] MEDS: CLOPIDOGREL 75 MG TAB PO SCH (09:30)
[2021-07-14] MEDS: POTASSIUM CHLORIDE 10MEQ SR TABLET PO SCH (09:30)
[2021-07-14] MEDS: PARoxetine 20MG TABLET PO SCH (09:31)
[2021-07-14] MEDS: HumaLOG INSULIN (NovoLOG) PER UNIT SC SCH ×2 (09:32→12:00)
--- NOTE | 2021-07-14 10:48 | IPN ---
PROGRESS NOTE DATE: 07/14/2021 SUBJECTIVE: Patient is being examined. Denies complaints. States he is anxious to go home. OBJECTIVE: Vitals are reviewed. He has remained afebrile. Lower extremity examination: Erythema and edema are improved. There is no significant purulence noted in the wound. Mild necrotic tissue in the dorsal wound. Labs: White cell count improved to 10.4. ASSESSMENT: A 61-year-old diabetic male with cellulitis and abscess, status post incision and drainage. PLAN: The patient okay to be discharged on appropriate IV antibiotics. He should have follow up with myself and Dr. Lay within one week.
[2021-07-14] MEDS: CEFTAROLINE FOSAMIL 600 MG in D5W MINI-BAG PLUS 50 ML IV SCH (11:47)
[2021-07-14 11:51] VITALS: BP 155/74
[2021-07-14] MEDS ORDERED: TEFL600I IV (11:56)
--- NOTE | 2021-07-14 17:09 | IPNPDOC ---
Text Note Date of Service The patient was seen on 07/14/21. NOTE Subjective: Patient was seen in this morning at bedside. He is getting ready to go home. He did have surgery/drainage of his abscess of the foot and Dr. Myles recommended going home and following with Dr. 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 Denies fever, chills, abdominal pain. Objective: General: Patient is excited that he is going home. Does not appear to be in any acute distress. Cardiac: S1 and S2 regular, no murmurs appreciated. Lungs: Clear bilateral lung sounds no wheezes or rhonchi appreciated. Abdomen: No tenderness to palpation positive bowel sounds appreciated. Extremities: He does have a wound on his left foot currently wrapped in an Mauricio bandage as he is going anirudh e Assessment/plan: LA on CKD : likely due to his infection/osteomyelitis. His kidney functions are stable. [Creatinine 1.94, GFR 37 better now was dialyzed today. Anemia: Likely due to iron deficiency anemia due to the infection. He did not get active iron supplementation IV has an active infection. Osteomyelitis/infection: Patient had multiple debridements of his left foot even during this admission. He will be going home on IV antibiotics ceftaroline 600 mg twice daily for 28 days and has a PICC line in place. VS,Fishbone, I+O VS, Fishbone, I+O Laboratory Tests 07/14/21 05:13 Vital Signs Date Time Temp Pulse Resp B/P (MAP) Pulse Ox O2 Delivery O2 Flow Rate FiO2 07/14/21 11:51 72 155/74 07/14/21 06:00 97.6 17 98 Room Air I&O- Last 24 Hours up to 6 AM 07/14/21 06:00 Intake Total 1680 ml Balance 1680 ml GME ATTESTATION GME ATTESTATION My faculty preceptor for this patient encounter was physically present during the encounter and was fully available. All aspects of the patient interview, examination, medical decision making process, and medical care plan development were reviewed and approved by the faculty preceptor. The faculty preceptor is aware and concurs with the plan as stated in the body of this note and will attest to such by his/her cosignature. Lela Newman MD Jul 14, 2021 17:09
--- NOTE | 2021-07-14 19:17 | DS.PDOC ---
Discharge Summary General Date of Admission Jul 04, 2021 at 08:19 Date of Discharge Jul 14, 2021 Specialist/Consultants [facility], Dr. Myles Infectious disease, Dr. Moran Nephrology, Dr. Schmid Discharge Summary PROCEDURES PERFORMED DURING STAY: Left foot I&D by Dr. Myles on 07/05/21 and 07/14/21 ADMITTING DIAGNOSES: 1. Sepsis secondary to diabetic foot infection/osteomyelitis of the left foot 2. Diabetic foot infection/osteomyelitis of the left foot 3. Acute kidney injury on chronic kidney disease stage III 4. Uncontrolled diabetes mellitus type 2 5. Hypertension 6. Peripheral vascular disease 7. Hyperlipidemia 8. Generalized anxiety 9. GERD 10. Conjunctivitis DISCHARGE DIAGNOSES: 1. Gram-positive and gram-negative sepsis secondary to diabetic foot infe ction/osteomyelitis of the left foot 2. Diabetic foot infection/osteomyelitis of the left foot 3. Acute kidney injury on chronic kidney disease stage III 4. Uncontrolled diabetes mellitus type 2 5. Hypertension 6. Peripheral vascular disease 7. Hyperlipidemia 8. Generalized anxiety 9. GERD 10. Conjunctivitis COMPLICATIONS/CHIEF COMPLAINT: Osteomyelitis Of Left Foot, Sepsis. HISTORY OF PRESENT ILLNESS: Mr. Bradshaw is a 61-year-old man with uncontrolled diabetes mellitus and peripheral artery disease who presents with generalized weakness and found to have sepsis secondary to left foot osteomyelitis. Patient tells me that for the past few days, he has been having chills. Denies any fever. Then in the past 2 days, his appetite has been poor and he has not been eating much. Yesterday, he had seen Dr. Lay who had ordered a wound culture. That evening, he was unable to get out of bed. was concerned and called for ambulance. Patient was brought into the ED for evaluation. He had a fever of 102 and tachycardia of 100. Blood pressures were soft, but he was doin g well at room air. WBC elevated at 13.8 and CRP was 45.3. Chest x-ray was negative for acute process. X-ray of the left foot cannot rule out osteomyelitis. Patient exhibited end organ damage with elevation of creatinine above his baseline. Otherwise, he denies any chest pain, shortness of breath, abdominal pain, diarrhea, or dysuria. On exam, his left foot ulcer is deep. There is some necrosis. I spoke with podiatry, plan for debridement tomorrow. Patient will be admitted for sepsis secondary to left foot osteomyelitis/diabetic foot infection. HOSPITAL COURSE: Patient was put on broad-spectrum antibiotics with vancomycin and Zosyn. Dr. Myles performed debridement on July 05 and took wound cultures. Patient's blood cultures returned positive for Proteus mirabilis, Streptococcus group G, and MRSA. Wound cultures of foot returned positive for Proteus mirabilis, Streptococcus group G, and MSSA. Due to gram-positive bacteremia, transthoracic echocardiogram was obtained and negative for vegetations. Repeat blood cultures were negative. Infectious disease was consulted. Recommended switching vancomycin and Zosyn to ceftaroline which can be done outpatient. Patient had a PICC line placed and ceftaroline was approved by insurance. Dr. Myles took a second look at the foot and decided to take him to the OR for second I&D and debridement. He took new cultures which are currently pending. I reached out to Dr. Myles to discuss the debridement and new cultures. He felt that this is the extension of his initial debridement. He tells me that he can follow-up with the cultures and adjust antibiotics outpatient. Otherwise, his renal function has improved. Nephrology is okay with having patient follow-up outpatient to monitor renal function. This morning, patient denied any chest pain or dyspnea. He felt ready for home. He cleared physical therapy and was discharged home today. DISCHARGE MEDICATIONS: Please see below. ALLERGIES: Please see below. PHYSICAL EXAMINATION ON DISCHARGE: VITAL SIGNS: Please see below. GENERAL: Comfortable, in no apparent distress. HEENT: EOMI, sclera clear. NECK: Supple. RESPIRATORY: Lungs clear to auscultation bilaterally, no rales, wheeze or rhonchi. CARDIOVASCULAR: Regular rate and rhythm. ABDOMEN: Soft, nontender, no guarding or rebound tenderness. Normal bowel sounds. NEUROLOGICAL: CN 3-12 grossly intact. PSYCHOLOGICAL: Normal mood and affect LABORATORY DATA: Please see below. IMAGING: MRI left foot FINDINGS: On 07/05/2021 the patient underwent complete 5th metatarsal ectomy with preservation of a portion of the proximal phalanx of the 5th digit and all of the middle and distal phalanges. There is diffuse T1 and T2 prolongation seen throughout all musculature and adipose tissue of the foot. This is seen in a similar fashion compared to the prior MRI examination but somewhat more extensive. Isolated fluid collections are seen medial and lateral to the 4th metatarsal. There are patchy areas of T2 hyper signal seen throughout the osseous structures of the midfoot with more diffuse appearing T2 hyper signal seen throughout the cuboid. These changes were also seen on the prior MRI but somewhat more subtly or at least better imaged using today's 3 T technique rather than the prior lower field strength technique there is a slightly complex posterior joint effusion abutting the posterior facet. There is joint space narrowing which is irregular and asymmetric involving all mid foot joint spaces and in a fashion increased from the prior MRI. IMPRESSION: 1. There is no definite evidence of osteomyelitis at this time, however, due to the diffuse marrow signal changes seen in the cuboid I would recommend a follow-up exam. 2. Status post 5th metatarsal ectomy with postoperative changes and diffuse soft tissue edema. 3. Small I slated fluid collections both medial and lateral to the proximal diap hysis of the 4th metatarsal. 4. Other findings as described above. PROGNOSIS: Good ACTIVITY: As tolerated. DIET: Carbohydrate consistent DISCHARGE PLAN: Patient to return home with home health services and IV ceftaroline 600 mg twice a day. Patient to follow-up with podiatry and advance wound care for the care of the foot. Patient should also follow-up with infectious disease to help manage antibiotics. Patient also to stop furosemide and hydrochlorothiazide as renal function still improving. Patient should also follow-up with nephrology. DISPOSITION: Home Health Service. DISCHARGE INSTRUCTIONS: 1. Follow-up with PCP within a week 2. Follow-up with Dr. Shameka cuevas within a week 3. Follow-up with Dr. Lay in 1 week 4. Follow-up with infectious disease in 1-2 week 5. Follow-up with nephrology in 1 week ITEMS TO FOLLOWUP ON ON OUTPATIENT: 1. Wound cultures from 07/13/2021 2. ESR and CRP 3. Creatinine 4. Anemia DISCHARGE CONDITION: Stable. Total time spent on discharge planning, discharge summary, and medication reconciliation: 55 minutes Vital Signs/I&Os Vital Signs Date Time Temp Pulse Resp B/P (MAP) Pulse Ox O2 Delivery O2 Flow Rate FiO2 07/14/21 11:51 72 155/74 07/14/21 06:00 97.6 17 98 Room Air I&O- Last 24 Hours up to 6 AM 07/14/21 06:00 Intake Total 1680 ml Balance 1680 ml Laboratory Data Labs 24H Laboratory Tests 2 07/13/21 19:08: Bedside Glucose (Misc Panel) 144H 07/13/21 20:55: Bedside Glucose (Misc Panel) 158H 07/14/21 05:13: Immature Granulocyte % (Auto) 1.7, Neutrophils (%) (Auto) 82.3H, Lymphocytes (%) (Auto) 10.5L, Monocytes (%) (Auto) 3.9, Eosinophils (%) (Auto) 1.3, Basophils (%) (Auto) 0.3, Neutrophils # (Auto) 8.5, Lymphocytes # (Auto) 1.1L, Monocytes # (Auto) 0.4, Eosinophils # (Auto) 0.1, Basophils # (Auto) 0.0, Nucleated Red Blood Cells % (auto) 0.0, Anion Gap 8, Glomerular Filtration Rate 37.8L, Calcium Level 7.0L 07/14/21 11:19: Bedside Glucose (Misc Panel) 208H CBC/BMP Laboratory Tests 07/14/21 05:13 FSBS Laboratory Tests Test 07/13/21 19:08 07/13/21 20:55 07/14/21 11:19 Range/Units Bedside Glucose (Misc Panel) 144 158 208 80-115 MG/DL Microbiology Microbiology 07/13/21 Gram Stain - Final, Resulted 07/13/21 Wound Culture, Resulted Pending 07/13/21 Anaerobic Culture, Resulted Pending 07/07/21 Blood Culture - Final, Complete NO GROWTH AFTER 5 DAYS 07/07/21 Blood Culture - Final, Complete NO GROWTH AFTER 5 DAYS 07/06/21 Blood Culture - Final, Complete NO GROWTH AFTER 5 DAYS 07/06/21 Blood Culture - Final, Complete NO GROWTH AFTER 5 DAYS 07/05/21 Gastrointestinal Tract Panel (PCR) - Final, Complete 07/05/21 Gram Stain - Final, Complete 07/05/21 Wound Culture - Final, Complete Proteus Mirabilis Staphylococcus Aureus Streptococcus Group G 07/05/21 Anaerobic Culture - Final, Complete 07/04/21 Gram Stain - Final, Complete 07/04/21 Wound Culture - Final, Complete Proteus Mirabilis Streptococcus Group G Staphylococcus Aureus 07/04/21 Respiratory Virus Panel (PCR) (ALMA) - Final, Complete 07/04/21 Blood Culture - Final, Complete Proteus Mirabilis Streptococcus Group G 07/04/21 Blood Culture - Final, Complete Staph.aureus Methicillin Resis Discharge Medications Scheduled Aspirin (Aspirin EC) 81 Mg Tab, 81 MG PO DAILY, (Reported) Atorvastatin Calcium (Atorvastatin Calcium) 40 Mg Tab, 40 MG PO QHS, (Reported) Carvedilol (Carvedilol) 6.25 Mg Tablet, 6.25 MG PO BID, (Reported) Ceftaroline Fosamil Acetate (Teflaro) 600 Mg Vial, 600 MG IV BID Clopidogrel Bisulfate (Clopidogrel) 75 Mg Tablet, 75 MG PO DAILY, (Reported) Empagliflozin (Jardiance) 25 Mg Tablet, 25 MG PO DAILY, (Reported) Ergocalciferol (Vitamin D2) (Drisdol) 1,250 Mcg Capsule, 50,000 UNITS PO QWEEK, (Reported) MONDAYS Fenofibrate (Fenofibrate) 160 Mg Tab, 160 MG PO DAILY, (Reported) Insulin Glargine,Hum.rec.anlog (Simon Solbasil) 300 Unit/1 Ml Insuln.pen, 12 UNITS SC QHS, (Reported) Pantoprazole Sodium (Pantoprazole Sodium) 40 Mg Tablet.dr, 40 MG PO DAILY, (Reported) Paroxetine HCl (Paroxetine HCl) 20 Mg Tablet, 20 MG PO DAILY, (Reported) Allergies Coded Allergies: metformin (Verified Adverse Reaction, Mild, DIARRHEA, 01/08/21) ISIDORO QUIROZ DO Jul 14, 2021 19:17
== END 2021-07-14 15:32 | disposition home health service (06) | DRG 710 ==
LOC: M ED 04:59 → EEVIPCON 08:19 → M ED INP 08:19 → M PCU 10:30 → M MSPAV 07-09 12:32
PROVIDERS: ADMIT Internal Medicine; ATTEND Internal Medicine
PROC: 0QBP0ZZ Excision of Left Metatarsal, Open Approach (ICD-10-PCS; principal; 2021-07-05 08:30)
PROC: 02HV33Z Insertion of Infusion Device into Superior Vena Cava, Percutaneous Approach (ICD-10-PCS; 2021-07-08)
PROC: 0JBR0ZZ Excision of Left Foot Subcutaneous Tissue and Fascia, Open Approach (ICD-10-PCS; 2021-07-13)
DX: A41.59 Other Gram-negative sepsis (principal); E11.21 Type 2 diabetes mellitus with diabetic nephropathy; N17.9 Acute kidney failure, unspecified; M86.272 Subacute osteomyelitis, left ankle and foot; E11.51 Type 2 diabetes mellitus with diabetic peripheral angiopathy without gangrene; N18.30 Chronic kidney disease, stage 3 unspecified; E11.69 Type 2 diabetes mellitus with other specified complication; E11.621 Type 2 diabetes mellitus with foot ulcer; I12.9 Hypertensive chronic kidney disease with stage 1 through stage 4 chronic kidney disease, or unspecified chronic kidney disease; K21.9 Gastro-esophageal reflux disease without esophagitis; E78.5 Hyperlipidemia, unspecified; F41.1 Generalized anxiety disorder; Z79.899 Other long term (current) drug therapy; Z88.8 Allergy status to other drugs, medicaments and biological substances; Z79.4 Long term (current) use of insulin; F17.200 Nicotine dependence, unspecified, uncomplicated; D63.8 Anemia in other chronic diseases classified elsewhere; H10.9 Unspecified conjunctivitis; E87.6 Hypokalemia; J44.9 Chronic obstructive pulmonary disease, unspecified; Z79.82 Long term (current) use of aspirin

== ENCOUNTER 2021-07-18 13:10 | Emergency (ER) | payer BC ==
[~2021-07-18] VITALS: Ht 185.4 cm; Wt 100.0 kg
[~2021-07-18 13:10] MED LIST changes: +HYDR-3490 PO; +TEFL600I IV; +sulfa
--- NOTE | 2021-07-18 13:39 | REP ---
INDICATION: FALL ON THINNERS, FACIAL TRAUMA COMPARISON: 03/20/2021 TECHNIQUE: Axial noncontrast images from the skull base to the thoracic inlet with coronal reformations. This CT examination was performed using the following dose reduction techniques: Automated exposure control, adjustment of mA and/or kv according to the patient's size, and use of iterative reconstruction technique. FINDINGS: Age-related involutional changes are appreciated. The ventricles and sulci are symmetric. Babcock-white differentiation is maintained. There is no evidence for acute intracranial hemorrhage, mass/mass effect, pathology or infarction. No extra-axial fluid collection. Calvarium is intact. Paranasal sinuses and mastoid air cells are clear. IMPRESSION: Age-related involutional changes. No acute intracranial hemorrhage, infarction, or mass/mass effect. <Electronically signed by Simon Marrero > 07/18/21 [id number]
[2021-07-18] MEDS ORDERED: LIDOCAINE W/EPINEPHRINE 1% 20ML VIAL SC ONE (13:40)
--- NOTE | 2021-07-18 13:46 | REP ---
INDICATION: FALL ON THINNERS, FACIAL TRAUMA COMPARISON: 03/03/2021 TECHNIQUE: Axial noncontrast images from the skull base to the thoracic inlet with coronal and sagittal re-formations This CT examination was performed using the following dose reduction techniques: Automated exposure control, adjustment of mA and/or kv according to the patient's size, and use of iterative reconstruction technique. FINDINGS: Moderate to advanced multilevel degenerative spondylosis includes osteophytosis, endplate sclerosis, disc space narrowing and hypertrophic facet changes. Alignment is maintained. There is no evidence for acute fracture/compression injury or subluxation. Posterior elements and spinous processes are intact. Paravertebral soft tissues are normal. IMPRESSION: Moderate to advanced multilevel degenerative spondylosis remains stable. No acute fracture/compression injury or subluxation. <Electronically signed by Simon Marrero > 07/18/21 [id number]
[2021-07-18] MEDS ORDERED: AUGM875T28 PO (14:43)
[2021-07-18 15:09] VITALS: BP 172/79
== END 2021-07-18 15:10 | disposition home or self-care (01) ==
LOC: M ED 13:10
DX: S01.511A Laceration without foreign body of lip, initial encounter (principal); W01.10XA Fall on same level from slipping, tripping and stumbling with subsequent striking against unspecified object, initial encounter; Y92.009 Unspecified place in unspecified non-institutional (private) residence as the place of occurrence of the external cause; Y93.9 Activity, unspecified; Y99.9 Unspecified external cause status; M47.812 Spondylosis without myelopathy or radiculopathy, cervical region; E10.9 Type 1 diabetes mellitus without complications; I10 Essential (primary) hypertension; E78.5 Hyperlipidemia, unspecified; K21.9 Gastro-esophageal reflux disease without esophagitis; Z88.8 Allergy status to other drugs, medicaments and biological substances; Z79.899 Other long term (current) drug therapy; Z79.4 Long term (current) use of insulin; Z79.82 Long term (current) use of aspirin

== ENCOUNTER → 2021-07-20 | Outpatient (REF) | payer BC ==
[2021-07-20 11:10] LABS: HEMATOCRIT 22.5 % (42.0-52.0); MEAN CORPUSCULAR HEMOGLOBIN 27.7 pg (27.0-33.0); MEAN CORPUSCULAR HGB CONC 31.1 g/dl (32.0-36.5); MEAN CORPUSCULAR VOLUME 88.9 fl (80.0-96.0); PLATELET COUNT, AUTOMATED 236 10^3/uL (150-450); RED BLOOD COUNT 2.53 10^6/uL (4.30-6.10); WHITE BLOOD COUNT 6.9 10^3/uL (4.0-10.0)
[2021-07-20 11:37] LABS: ERYTHROCYTE SEDIMENTATION RATE 4 mm/hr (0-20)
[2021-07-20 11:38] LABS: ALBUMIN 1.5 GM/DL (3.2-5.2); BILIRUBIN,TOTAL 0.2 MG/DL (0.2-1.0); C REACTIVE PROTEIN QUANTITATIV 3.63 MG/DL (0.00-0.30); CALCIUM LEVEL 7.8 MG/DL (8.8-10.2); CREATININE FOR GFR 1.9 MG/DL (0.70-1.30); GLOMERULAR FILTRATION RATE 38.7 (>49); POTASSIUM SERUM 4.2 MEQ/L (3.5-5.1); TOTAL PROTEIN 5.3 GM/DL (6.4-8.2)
== END ==
LOC: M SHH 10:01
PROVIDERS: ATTEND Internal Medicine Infectious Disease
DX: A49.02 Methicillin resistant Staphylococcus aureus infection, unspecified site (principal); M86.172 Other acute osteomyelitis, left ankle and foot; L03.116 Cellulitis of left lower limb; E11.621 Type 2 diabetes mellitus with foot ulcer

== ENCOUNTER → 2021-07-27 | Outpatient (REF) | payer BC ==
[2021-07-27 11:01] LABS: HEMATOCRIT 21.7 % (42.0-52.0); MEAN CORPUSCULAR HGB CONC 31.3 g/dl (32.0-36.5); MEAN CORPUSCULAR VOLUME 89.3 fl (80.0-96.0); PLATELET COUNT, AUTOMATED 139 10^3/uL (150-450); RED BLOOD COUNT 2.43 10^6/uL (4.30-6.10); WHITE BLOOD COUNT 4.8 10^3/uL (4.0-10.0)
[2021-07-27 11:27] LABS: ALBUMIN 1.6 GM/DL (3.2-5.2); BILIRUBIN,TOTAL 0.2 MG/DL (0.2-1.0); C REACTIVE PROTEIN QUANTITATIV 2.37 MG/DL (0.00-0.30); CALCIUM LEVEL 7.6 MG/DL (8.8-10.2); CREATININE FOR GFR 2.2 MG/DL (0.70-1.30); GLOMERULAR FILTRATION RATE 32.7 (>49); POTASSIUM SERUM 4.1 MEQ/L (3.5-5.1); TOTAL PROTEIN 5.5 GM/DL (6.4-8.2)
[2021-07-27 12:02] LABS: HEMOGLOBIN 6.8 g/dl (13.5-17.5)
[2021-07-27 12:28] LABS: ERYTHROCYTE SEDIMENTATION RATE 126 mm/hr (0-20)
== END ==
LOC: M SHH 10:33
PROVIDERS: ATTEND Internal Medicine Infectious Disease
DX: A49.02 Methicillin resistant Staphylococcus aureus infection, unspecified site (principal); M86.172 Other acute osteomyelitis, left ankle and foot; L03.116 Cellulitis of left lower limb; E11.621 Type 2 diabetes mellitus with foot ulcer

== ENCOUNTER 2021-07-28 15:04 | Outpatient (CLI) | payer BC ==
[~2021-07-28] VITALS: Ht 185.4 cm; Wt 100.0 kg
[~2021-07-28 15:04] MED LIST changes: +ACETAMINOPHEN TAB 650MG DOSE (2X325MG) PO SCH; +cefTRIAXone SOD 2 GM in D5W MINI-BAG PLUS 50 ML IV SCH; +diphenhydrAMINE 25MG CAP PO SCH
[2021-07-28 15:36] VITALS: BP 140/80
[2021-07-28 17:10] VITALS: BP 162/77
[2021-07-28 18:20] VITALS: BP 162/84
[2021-07-28 18:31] VITALS: BP 162/84
== END 2021-07-28 18:30 | disposition home or self-care (01) ==
LOC: M INFU 15:04
PROVIDERS: ATTEND Internal Medicine Infectious Disease
DX: D64.9 Anemia, unspecified (principal)
CPT/HCPCS: 36430; 36592; 86850; 86900; 86901; 86920; 96365; J0696; P9040

== ENCOUNTER 2021-08-03 14:56 | Observation (INO) | payer BC ==
[~2021-08-03] VITALS: Ht 185.4 cm; Wt 100.2 kg
[~2021-08-03 14:56] MED LIST changes: -AMLO1TAB25 PO; -CEFT1INJ65 IV; -OMEP40CA4 PO
[2021-08-03] MEDS ORDERED: ATORVASTATIN 20 MG TAB PO SCH (21:00)
[2021-08-03] MEDS ORDERED: LEVEMIR (INSULIN DETEMIR) 1 UNITS/0.01ML SC SCH (21:00)
[2021-08-03] MEDS ORDERED: HumaLOG INSULIN (NovoLOG) PER UNIT SC SCH (21:00)
[2021-08-03] MEDS ORDERED: cefTRIAXone SOD 2 GM in D5W MINI-BAG PLUS 50 ML IV SCH (22:00)
[2021-08-03] MEDS ORDERED: HOME MED LIST COMPLETE! XX SCH (22:40)
[2021-08-04] VITALS (12 sets, daily range): BP systolic 165–188; BP diastolic 85–108
[2021-08-04] MEDS ORDERED: HEPARIN SOD (PORCINE) 5000UNITS/ML 1ML VIAL/SYRINGE SC SCH
[2021-08-04] MEDS ORDERED: CEFT1INJ65 IV (00:24)
[2021-08-04] MEDS ORDERED: DEXTROSE 50% 50 ML SYRINGE IV PRN (00:25)
[2021-08-04] MEDS ORDERED: GLUCAGON INJ 1MG VIAL SC PRN (00:25)
[2021-08-04] MEDS ORDERED: GLUCOSE 4GM CHEW TABLET PO PRN (00:25)
[2021-08-04] MEDS: CARVedilol 6.25 MG TAB PO SCH ×2 (02:37→09:55)
[2021-08-04 03:08] LABS: EOS # 0.3 10^3/uL (0.0-0.5); EOS % 6.7 % (0.0-3.0); LYMPH # 1.2 10^3/uL (1.5-5.0); MEAN CORPUSCULAR HEMOGLOBIN 27.3 pg (27.0-33.0); MEAN CORPUSCULAR HGB CONC 30.9 g/dl (32.0-36.5); MEAN CORPUSCULAR VOLUME 88.4 fl (80.0-96.0); MONO # 0.3 10^3/uL (0.0-0.8); MONO % 6.7 % (2.0-8.0); NEUTROPHILS # 2.4 10^3/uL (1.5-8.5); NEUTROPHILS % 56.4 % (36.0-66.0); PLATELET COUNT, AUTOMATED 238 10^3/uL (150-450); RED BLOOD COUNT 2.49 10^6/uL (4.30-6.10); WHITE BLOOD COUNT 4.2 10^3/uL (4.0-10.0)
[2021-08-04 03:32] LABS: HEMOGLOBIN 6.8 g/dl (13.5-17.5)
[2021-08-04 03:34] LABS: CALCIUM LEVEL 7.6 MG/DL (8.8-10.2); CREATININE FOR GFR 1.65 MG/DL (0.70-1.30); GLOMERULAR FILTRATION RATE 45.5 (>49); POTASSIUM SERUM 3.7 MEQ/L (3.5-5.1)
[2021-08-04 04:30] LABS: HEMOGLOBIN A1c 8.1 %
[2021-08-04] MEDS: HumaLOG INSULIN (NovoLOG) PER UNIT SC SCH ×2 (07:30→12:46)
[2021-08-04] MEDS ORDERED: ASPIRIN 81MG ENTERIC TABLET PO SCH (09:00)
[2021-08-04] MEDS ORDERED: PANTOPRAZOLE 40MG TAB (PROTONIX) PO SCH (09:00)
[2021-08-04] MEDS ORDERED: CLOPIDOGREL 75 MG TAB PO SCH (09:00)
[2021-08-04] MEDS ORDERED: PARoxetine 20MG TABLET PO SCH (09:00)
[2021-08-04] MEDS ORDERED: OMEP40CA4 PO (12:25)
[2021-08-04 14:14] LABS: HEMOGLOBIN 10.6 g/dl (13.5-17.5); MEAN CORPUSCULAR HEMOGLOBIN 28.3 pg (27.0-33.0); MEAN CORPUSCULAR HGB CONC 32.1 g/dl (32.0-36.5); PLATELET COUNT, AUTOMATED 291 10^3/uL (150-450); RED BLOOD COUNT 3.75 10^6/uL (4.30-6.10); WHITE BLOOD COUNT 5.6 10^3/uL (4.0-10.0)
[2021-08-04 14:53] LABS: BILIRUBIN,TOTAL 0.4 MG/DL (0.2-1.0); CALCIUM LEVEL 8.3 MG/DL (8.8-10.2); CREATININE FOR GFR 1.61 MG/DL (0.70-1.30); GLOMERULAR FILTRATION RATE 46.8 (>49); POTASSIUM SERUM 3.7 MEQ/L (3.5-5.1); TOTAL PROTEIN 6.5 GM/DL (6.4-8.2)
[2021-08-04] MEDS ORDERED: AMLO1TAB25 PO (15:07)
[2021-08-04] MEDS ORDERED: cefTRIAXone SOD 2 GM VIAL (J0696 PER 250MG) IV SCH (21:00)
[2021-08-10] MEDS ORDERED: VITAMIN D 50,000 UNITS CAPSULE (ERGOCALCIFEROL 1.25MG) PO SCH (09:00)
== END 2021-08-04 16:40 | disposition home or self-care (01) ==
LOC: M ED 14:56 → M ED INP 14:57 → M MS5PR 08-04 03:30
PROVIDERS: ADMIT Family Medicine; ATTEND Internal Medicine
DX: D64.9 Anemia, unspecified (principal); M86.271 Subacute osteomyelitis, right ankle and foot; E11.65 Type 2 diabetes mellitus with hyperglycemia; R31.9 Hematuria, unspecified; I73.9 Peripheral vascular disease, unspecified; K21.9 Gastro-esophageal reflux disease without esophagitis; I12.9 Hypertensive chronic kidney disease with stage 1 through stage 4 chronic kidney disease, or unspecified chronic kidney disease; N18.30 Chronic kidney disease, stage 3 unspecified; E78.5 Hyperlipidemia, unspecified; F41.1 Generalized anxiety disorder; Z88.1 Allergy status to other antibiotic agents; Z88.8 Allergy status to other drugs, medicaments and biological substances; Z79.82 Long term (current) use of aspirin; Z79.4 Long term (current) use of insulin; Z79.2 Long term (current) use of antibiotics
CPT/HCPCS: 36415; 36430; 80053; 81001; 83036; 85025; 85027; 86850; 86900; 86901; 86920; 87088; 87186; 87798; 96365; 99284; J0696; P9016

== ENCOUNTER → 2021-08-03 | Outpatient (REF) | payer BC ==
[~2021-08-03] MED LIST changes: -ACETAMINOPHEN TAB 650MG DOSE (2X325MG) PO SCH; +AMLO1TAB25 PO; +CEFT1INJ65 IV; +OMEP40CA4 PO; -cefTRIAXone SOD 2 GM in D5W MINI-BAG PLUS 50 ML IV SCH; -diphenhydrAMINE 25MG CAP PO SCH
[2021-08-03 09:21] LABS: HEMATOCRIT 22.5 % (42.0-52.0); MEAN CORPUSCULAR HEMOGLOBIN 27.6 pg (27.0-33.0); MEAN CORPUSCULAR HGB CONC 31.1 g/dl (32.0-36.5); MEAN CORPUSCULAR VOLUME 88.6 fl (80.0-96.0); PLATELET COUNT, AUTOMATED 231 10^3/uL (150-450); RED BLOOD COUNT 2.54 10^6/uL (4.30-6.10); WHITE BLOOD COUNT 4.7 10^3/uL (4.0-10.0)
[2021-08-03 09:55] LABS: ALBUMIN 1.6 GM/DL (3.2-5.2); ALT/SGPT 8 U/L (12-78); BILIRUBIN,TOTAL < 0.1 MG/DL (0.2-1.0); BLOOD UREA NITROGEN 28 MG/DL (7-18); C REACTIVE PROTEIN QUANTITATIV 2.16 MG/DL (0.00-0.30); CALCIUM LEVEL 7.7 MG/DL (8.8-10.2); CARBON DIOXIDE LEVEL 25 MEQ/L (21-32); CHLORIDE LEVEL 112 MEQ/L (98-107); CREATININE FOR GFR 1.88 MG/DL (0.70-1.30); GLOMERULAR FILTRATION RATE 39.2 (>49); GLUCOSE, FASTING 151 MG/DL (70-100); POTASSIUM SERUM 3.8 MEQ/L (3.5-5.1); SODIUM LEVEL 142 MEQ/L (136-145); TOTAL PROTEIN 5.5 GM/DL (6.4-8.2)
[2021-08-03 10:24] LABS: ERYTHROCYTE SEDIMENTATION RATE 127 mm/hr (0-20)
== END ==
LOC: M SHH 09:02
PROVIDERS: ATTEND Internal Medicine Infectious Disease
DX: A49.02 Methicillin resistant Staphylococcus aureus infection, unspecified site (principal); L03.116 Cellulitis of left lower limb; E11.621 Type 2 diabetes mellitus with foot ulcer

== ENCOUNTER 2021-08-06 14:50 | Inpatient (IN) | payer BC ==
[~2021-08-06] VITALS: Ht 182.9 cm; Wt 103.4 kg
[~2021-08-06 14:50] MED LIST changes: +AMLO1TAB25 PO; +CEFT1INJ65 IV; +OMEP40CA4 PO
[2021-08-06 15:57] LABS: BASO % 0.4 % (0.0-1.0); EOS # 0.2 10^3/uL (0.0-0.5); EOS % 2.4 % (0.0-3.0); HEMATOCRIT 30.4 % (42.0-52.0); HEMOGLOBIN 9.6 g/dl (13.5-17.5); LYMPH # 1.2 10^3/uL (1.5-5.0); LYMPH % 16.2 % (24.0-44.0); MEAN CORPUSCULAR HEMOGLOBIN 28.2 pg (27.0-33.0); MEAN CORPUSCULAR HGB CONC 31.6 g/dl (32.0-36.5); MEAN CORPUSCULAR VOLUME 89.4 fl (80.0-96.0); MONO # 0.5 10^3/uL (0.0-0.8); NEUTROPHILS # 5.3 10^3/uL (1.5-8.5); NEUTROPHILS % 73.6 % (36.0-66.0); PLATELET COUNT, AUTOMATED 244 10^3/uL (150-450); WHITE BLOOD COUNT 7.2 10^3/uL (4.0-10.0)
[2021-08-06 16:36] LABS: ALBUMIN 1.9 GM/DL (3.2-5.2); BILIRUBIN,DIRECT 0.1 MG/DL (0.0-0.2); BILIRUBIN,TOTAL 0.2 MG/DL (0.2-1.0); CALCIUM LEVEL 7.6 MG/DL (8.8-10.2); CREATININE FOR GFR 1.94 MG/DL (0.70-1.30); GLOMERULAR FILTRATION RATE 37.8 (>49); POTASSIUM SERUM 4.2 MEQ/L (3.5-5.1); THYROID STIMULATING HORMONE 1.59 uIU/ML (0.358-3.740); THYROXINE (T4) 6.1 UG/DL (4.5-12.0); TOTAL PROTEIN 6.1 GM/DL (6.4-8.2)
[2021-08-06] MEDS ORDERED: FUROSEMIDE 40MG/4ML VIAL (J1940) IV ONE (16:55)
[2021-08-06] MEDS ORDERED: HYDR-3490 PO (17:47)
[2021-08-06] MEDS ORDERED: HOME MED LIST COMPLETE! XX SCH (17:50)
[2021-08-06] MEDS ORDERED: GLUCOSE 4GM CHEW TABLET PO PRN (18:05)
[2021-08-06] MEDS ORDERED: DEXTROSE 50% 50 ML SYRINGE IV PRN (18:05)
[2021-08-06] MEDS ORDERED: GLUCAGON INJ 1MG VIAL SC PRN (18:05)
[2021-08-06 19:30] VITALS: BP 174/97
[2021-08-06] MEDS: ATORVASTATIN 20 MG TAB PO SCH (20:55)
[2021-08-06] MEDS: cefTRIAXone SOD 2 GM in D5W MINI-BAG PLUS 50 ML IV SCH (20:57)
[2021-08-06] MEDS: CARVedilol 6.25 MG TAB PO SCH (20:57)
[2021-08-06] MEDS: HumaLOG INSULIN (NovoLOG) PER UNIT SC SCH (20:57)
[2021-08-06] MEDS ORDERED: cefTRIAXone SOD 2 GM VIAL (J0696 PER 250MG) IV SCH (21:00)
[2021-08-07] MEDS: FUROSEMIDE 40MG/4ML VIAL (J1940) IV SCH ×4 (00:16→17:59)
[2021-08-07 06:00] VITALS: BP 140/72
[2021-08-07 06:41] LABS: BASO % 0.6 % (0.0-1.0); EOS # 0.2 10^3/uL (0.0-0.5); EOS % 3.9 % (0.0-3.0); HEMATOCRIT 27.6 % (42.0-52.0); HEMOGLOBIN 8.8 g/dl (13.5-17.5); LYMPH # 1.2 10^3/uL (1.5-5.0); LYMPH % 23.4 % (24.0-44.0); MEAN CORPUSCULAR HEMOGLOBIN 28.3 pg (27.0-33.0); MEAN CORPUSCULAR HGB CONC 31.9 g/dl (32.0-36.5); MEAN CORPUSCULAR VOLUME 88.7 fl (80.0-96.0); MONO # 0.4 10^3/uL (0.0-0.8); MONO % 8.5 % (2.0-8.0); NEUTROPHILS # 3.3 10^3/uL (1.5-8.5); NEUTROPHILS % 63.4 % (36.0-66.0); PLATELET COUNT, AUTOMATED 219 10^3/uL (150-450); RED BLOOD COUNT 3.11 10^6/uL (4.30-6.10); WHITE BLOOD COUNT 5.2 10^3/uL (4.0-10.0)
[2021-08-07 07:02] LABS: ALBUMIN 1.7 GM/DL (3.2-5.2); BILIRUBIN,TOTAL 0.2 MG/DL (0.2-1.0); CALCIUM LEVEL 7.9 MG/DL (8.8-10.2); CREATININE FOR GFR 1.88 MG/DL (0.70-1.30); GLOMERULAR FILTRATION RATE 39.2 (>49); MAGNESIUM LEVEL 1.8 MG/DL (1.8-2.4); PHOSPHORUS LEVEL 2.4 MG/DL (2.5-4.9); POTASSIUM SERUM 3.5 MEQ/L (3.5-5.1); TOTAL PROTEIN 5.9 GM/DL (6.4-8.2)
[2021-08-07] MEDS: HumaLOG INSULIN (NovoLOG) PER UNIT SC SCH ×4 (08:36→20:24)
[2021-08-07] MEDS: PARoxetine 20MG TABLET PO SCH (08:39)
[2021-08-07] MEDS: CLOPIDOGREL 75 MG TAB PO SCH (08:39)
[2021-08-07] MEDS: OMEPRAZOLE 20 MG CAP PO SCH (08:39)
[2021-08-07] MEDS: ASPIRIN 81MG ENTERIC TABLET PO SCH (08:39)
[2021-08-07] MEDS: CARVedilol 6.25 MG TAB PO SCH ×2 (08:40→21:34)
[2021-08-07] MEDS ORDERED: TORS10TA3 PO (10:38)
[2021-08-07] MEDS ORDERED: POTASSIUM CHLORIDE 10MEQ SR TABLET PO ONE (13:00)
[2021-08-07 14:00] VITALS: BP 155/81
[2021-08-07] MEDS ORDERED: K-PHOS ORIGINAL (POT.ACID PHOSPHATE) 500MG TAB PO ONE (14:00)
[2021-08-07 20:30] VITALS: BP 142/75
[2021-08-07] MEDS: ATORVASTATIN 20 MG TAB PO SCH (21:34)
[2021-08-07] MEDS: cefTRIAXone SOD 2 GM in D5W MINI-BAG PLUS 50 ML IV SCH (21:34)
[2021-08-08 00:24] VITALS: BP 138/75
[2021-08-08] MEDS: FUROSEMIDE 40MG/4ML VIAL (J1940) IV SCH ×2 (00:25→05:37)
[2021-08-08 05:22] VITALS: BP 142/74
[2021-08-08 06:40] LABS: HEMATOCRIT 28.3 % (42.0-52.0); HEMOGLOBIN 9.1 g/dl (13.5-17.5); MEAN CORPUSCULAR HEMOGLOBIN 28.8 pg (27.0-33.0); MEAN CORPUSCULAR HGB CONC 32.2 g/dl (32.0-36.5); MEAN CORPUSCULAR VOLUME 89.6 fl (80.0-96.0); PLATELET COUNT, AUTOMATED 205 10^3/uL (150-450); RED BLOOD COUNT 3.16 10^6/uL (4.30-6.10); WHITE BLOOD COUNT 4.5 10^3/uL (4.0-10.0)
[2021-08-08 07:22] LABS: CALCIUM LEVEL 7.7 MG/DL (8.8-10.2); CREATININE FOR GFR 1.99 MG/DL (0.70-1.30); GLOMERULAR FILTRATION RATE 36.7 (>49); MAGNESIUM LEVEL 1.7 MG/DL (1.8-2.4); PHOSPHORUS LEVEL 3.2 MG/DL (2.5-4.9); POTASSIUM SERUM 3.6 MEQ/L (3.5-5.1)
[2021-08-08] MEDS: ASPIRIN 81MG ENTERIC TABLET PO SCH (08:35)
[2021-08-08] MEDS: PARoxetine 20MG TABLET PO SCH (08:35)
[2021-08-08] MEDS: OMEPRAZOLE 20 MG CAP PO SCH (08:35)
[2021-08-08] MEDS: HumaLOG INSULIN (NovoLOG) PER UNIT SC SCH ×2 (08:35→12:20)
[2021-08-08] MEDS: CLOPIDOGREL 75 MG TAB PO SCH (08:35)
[2021-08-08 08:36] VITALS: BP 142/74
[2021-08-08] MEDS: CARVedilol 6.25 MG TAB PO SCH (08:36)
[2021-08-08] MEDS ORDERED: MAGNESIUM OXIDE 400MG TAB (MAG-OX) PO ONE (10:00)
[2021-08-08] MEDS ORDERED: POTASSIUM CHLORIDE 10MEQ SR TABLET PO ONE (10:00)
[2021-08-09] MEDS ORDERED: FUROSEMIDE 40MG/4ML VIAL (J1940) IV SCH (09:00)
== END 2021-08-08 13:44 | disposition home or self-care (01) | DRG 194 ==
LOC: M ED 14:50 → M ED INP 17:58 → ENRESERV 18:20 → M MSPAV 19:25
PROVIDERS: ADMIT Internal Medicine; ATTEND Internal Medicine
DX: I13.0 Hypertensive heart and chronic kidney disease with heart failure and stage 1 through stage 4 chronic kidney disease, or unspecified chronic kidney disease (principal); E11.22 Type 2 diabetes mellitus with diabetic chronic kidney disease; N18.30 Chronic kidney disease, stage 3 unspecified; M86.9 Osteomyelitis, unspecified; I73.9 Peripheral vascular disease, unspecified; D64.9 Anemia, unspecified; E78.5 Hyperlipidemia, unspecified; K21.9 Gastro-esophageal reflux disease without esophagitis; F41.1 Generalized anxiety disorder; Z79.82 Long term (current) use of aspirin; Z79.899 Other long term (current) drug therapy; Z88.8 Allergy status to other drugs, medicaments and biological substances; Z20.822 Contact with and (suspected) exposure to COVID-19; I50.33 Acute on chronic diastolic (congestive) heart failure; E11.69 Type 2 diabetes mellitus with other specified complication

== ENCOUNTER → 2021-08-17 | Outpatient (REF) | payer BC ==
[~2021-08-17] MED LIST changes: +CEFD300C41 PO; +D31000TA2 PO; +TORS100T PO; +TORS10TA3 PO; +VITAD1000T PO
[2021-08-17 18:02] LABS: BASO % 0.4 % (0.0-1.0); EOS # 0.2 10^3/uL (0.0-0.5); EOS % 2.5 % (0.0-3.0); HEMATOCRIT 28.6 % (42.0-52.0); HEMOGLOBIN 8.8 g/dl (13.5-17.5); LYMPH # 1.3 10^3/uL (1.5-5.0); LYMPH % 18.9 % (24.0-44.0); MEAN CORPUSCULAR HEMOGLOBIN 27.2 pg (27.0-33.0); MEAN CORPUSCULAR HGB CONC 30.8 g/dl (32.0-36.5); MEAN CORPUSCULAR VOLUME 88.3 fl (80.0-96.0); MONO # 0.4 10^3/uL (0.0-0.8); MONO % 5.9 % (2.0-8.0); NEUTROPHILS # 4.9 10^3/uL (1.5-8.5); NEUTROPHILS % 71.9 % (36.0-66.0); PLATELET COUNT, AUTOMATED 255 10^3/uL (150-450); RED BLOOD COUNT 3.24 10^6/uL (4.30-6.10); WHITE BLOOD COUNT 6.8 10^3/uL (4.0-10.0)
[2021-08-17 18:44] LABS: ERYTHROCYTE SEDIMENTATION RATE 127 mm/hr (0-20)
== END ==
LOC: M SHH 16:31
PROVIDERS: ATTEND Internal Medicine Infectious Disease
DX: M86.672 Other chronic osteomyelitis, left ankle and foot (principal)

== ENCOUNTER → 2021-08-31 | Outpatient (REF) | payer BC ==
[~2021-08-31] MED LIST changes: -CEFD300C41 PO; -D31000TA2 PO; -TORS100T PO; -VITAD1000T PO
[2021-08-31 10:37] LABS: BASO % 0.6 % (0.0-1.0); EOS # 0.2 10^3/uL (0.0-0.5); EOS % 2.4 % (0.0-3.0); HEMATOCRIT 28.1 % (42.0-52.0); HEMOGLOBIN 8.5 g/dl (13.5-17.5); LYMPH # 1.3 10^3/uL (1.5-5.0); LYMPH % 18.9 % (24.0-44.0); MEAN CORPUSCULAR HEMOGLOBIN 26.8 pg (27.0-33.0); MEAN CORPUSCULAR HGB CONC 30.2 g/dl (32.0-36.5); MEAN CORPUSCULAR VOLUME 88.6 fl (80.0-96.0); MONO # 0.4 10^3/uL (0.0-0.8); MONO % 5.7 % (2.0-8.0); NEUTROPHILS # 4.8 10^3/uL (1.5-8.5); NEUTROPHILS % 72.1 % (36.0-66.0); PLATELET COUNT, AUTOMATED 240 10^3/uL (150-450); RED BLOOD COUNT 3.17 10^6/uL (4.30-6.10); WHITE BLOOD COUNT 6.7 10^3/uL (4.0-10.0)
[2021-08-31 11:11] LABS: ERYTHROCYTE SEDIMENTATION RATE 77 mm/hr (0-20)
== END ==
LOC: M SHH 09:57
PROVIDERS: ATTEND Internal Medicine Infectious Disease
DX: M86.672 Other chronic osteomyelitis, left ankle and foot (principal)

== ENCOUNTER 2021-09-06 16:49 | Inpatient (IN) | payer BC ==
[~2021-09-06] VITALS: Ht 185.4 cm; Wt 106.4 kg
[2021-09-06 17:49] LABS: BASO % 0.9 % (0.0-1.0); EOS # 0.1 10^3/uL (0.0-0.5); EOS % 1.3 % (0.0-3.0); HEMATOCRIT 32.5 % (42.0-52.0); HEMOGLOBIN 9.9 g/dl (13.5-17.5); LYMPH # 0.8 10^3/uL (1.5-5.0); LYMPH % 18.5 % (24.0-44.0); MEAN CORPUSCULAR HEMOGLOBIN 26.3 pg (27.0-33.0); MEAN CORPUSCULAR HGB CONC 30.5 g/dl (32.0-36.5); MEAN CORPUSCULAR VOLUME 86.2 fl (80.0-96.0); MONO # 0.3 10^3/uL (0.0-0.8); MONO % 7.5 % (2.0-8.0); NEUTROPHILS # 3.2 10^3/uL (1.5-8.5); NEUTROPHILS % 71.1 % (36.0-66.0); PLATELET COUNT, AUTOMATED 279 10^3/uL (150-450); RED BLOOD COUNT 3.77 10^6/uL (4.30-6.10); WHITE BLOOD COUNT 4.5 10^3/uL (4.0-10.0)
[2021-09-06] MEDS ORDERED: FUROSEMIDE 40MG/4ML VIAL (J1940) IV ONE (18:05)
[2021-09-06 18:12] LABS: ALBUMIN 2.1 GM/DL (3.2-5.2); BILIRUBIN,DIRECT 0.2 MG/DL (0.0-0.2); BILIRUBIN,TOTAL 0.5 MG/DL (0.2-1.0); CREATININE FOR GFR 1.97 MG/DL (0.70-1.30); GLOMERULAR FILTRATION RATE 37.1 (>49); POTASSIUM SERUM 4.3 MEQ/L (3.5-5.1); TOTAL PROTEIN 6.5 GM/DL (6.4-8.2)
[2021-09-06] MEDS ORDERED: HYDR-3490 PO (18:44)
[2021-09-06] MEDS ORDERED: ACETAMINOPHEN TAB 650MG DOSE (2X325MG) PO PRN (19:00)
[2021-09-06] MEDS ORDERED: MAALOX 30 ML SUSP *UDC PO PRN (19:00)
[2021-09-06] MEDS ORDERED: MOM 30ML SUSPENSION UDC PO PRN (19:00)
[2021-09-06] MEDS ORDERED: OMEP40CA4 PO (19:20)
[2021-09-06] MEDS ORDERED: AMLO1TAB25 PO (19:20)
[2021-09-06] MEDS ORDERED: TORS10TA3 PO (19:20)
[2021-09-06] MEDS ORDERED: CEFD300C41 PO (19:20)
[2021-09-06] MEDS ORDERED: HOME MED LIST COMPLETE! XX SCH (19:25)
[2021-09-06] MEDS ORDERED: GLUCOSE 4GM CHEW TABLET PO PRN (20:15)
[2021-09-06] MEDS ORDERED: GLUCAGON INJ 1MG VIAL SC PRN (20:15)
[2021-09-06] MEDS ORDERED: DEXTROSE 50% 50 ML SYRINGE IV PRN (20:15)
[2021-09-06 20:40] LABS: INR 1.15; PROTHROMBIN TIME 15.1 SECONDS (12.7-14.5)
[2021-09-06 20:41] LABS: PARTIAL THROMBOPLASTIN TIME 38.3 SECONDS (25.9-37.0)
[2021-09-06] MEDS: HumaLOG INSULIN (NovoLOG) PER UNIT SC SCH (21:00)
[2021-09-06] MEDS ORDERED: hydrALAZINE 20MG/ML 1ML VIAL (J0360 PER 20MG) IV PRN (21:55)
[2021-09-06] MEDS: ATORVASTATIN 20 MG TAB PO SCH (23:01)
[2021-09-06] MEDS: CARVedilol 6.25 MG TAB PO SCH (23:01)
[2021-09-07 06:05] LABS: HEMATOCRIT 27.2 % (42.0-52.0); HEMOGLOBIN 8.3 g/dl (13.5-17.5); MEAN CORPUSCULAR HEMOGLOBIN 26.4 pg (27.0-33.0); MEAN CORPUSCULAR HGB CONC 30.5 g/dl (32.0-36.5); MEAN CORPUSCULAR VOLUME 86.6 fl (80.0-96.0); PLATELET COUNT, AUTOMATED 198 10^3/uL (150-450); RED BLOOD COUNT 3.14 10^6/uL (4.30-6.10); WHITE BLOOD COUNT 3.3 10^3/uL (4.0-10.0)
[2021-09-07 06:30] LABS: CREATININE FOR GFR 1.92 MG/DL (0.70-1.30); GLOMERULAR FILTRATION RATE 38.2 (>49); MAGNESIUM LEVEL 2.2 MG/DL (1.8-2.4); POTASSIUM SERUM 3.9 MEQ/L (3.5-5.1)
[2021-09-07 07:35] VITALS: BP 144/73
[2021-09-07] MEDS: FUROSEMIDE 100MG/10ML VIAL (J1940) IV SCH ×2 (08:27→21:09)
[2021-09-07] MEDS: PARoxetine 20MG TABLET PO SCH (08:28)
[2021-09-07] MEDS: OMEPRAZOLE 20MG CAP PO SCH (08:28)
[2021-09-07] MEDS: ENOXAPARIN 30MG/0.3ML SYRINGE (J1650 PER 10MG) SC SCH (08:28)
[2021-09-07] MEDS: ASPIRIN 81MG ENTERIC TABLET PO SCH (08:28)
[2021-09-07] MEDS: CARVedilol 6.25 MG TAB PO SCH ×2 (08:29→21:10)
[2021-09-07] MEDS: CLOPIDOGREL 75 MG TAB PO SCH (08:30)
[2021-09-07] MEDS: HumaLOG INSULIN (NovoLOG) PER UNIT SC SCH ×4 (08:32→21:00)
[2021-09-07] MEDS: LEVEMIR (INSULIN DETEMIR) 1 UNITS/0.01ML SC SCH (13:34)
[2021-09-07 15:00] VITALS: BP 117/62
[2021-09-07 18:00] VITALS: BP 120/69
[2021-09-07] MEDS: ATORVASTATIN 20 MG TAB PO SCH (21:09)
[2021-09-07 22:00] VITALS: BP 148/69
[2021-09-08 00:05] VITALS: O2SAT 92
[2021-09-08 06:00] VITALS: BP 143/70
[2021-09-08 06:04] LABS: HEMATOCRIT 27.8 % (42.0-52.0); HEMOGLOBIN 8.5 g/dl (13.5-17.5); MEAN CORPUSCULAR HEMOGLOBIN 26.5 pg (27.0-33.0); MEAN CORPUSCULAR HGB CONC 30.6 g/dl (32.0-36.5); MEAN CORPUSCULAR VOLUME 86.6 fl (80.0-96.0); PLATELET COUNT, AUTOMATED 200 10^3/uL (150-450); RED BLOOD COUNT 3.21 10^6/uL (4.30-6.10); WHITE BLOOD COUNT 3.7 10^3/uL (4.0-10.0)
[2021-09-08 06:29] LABS: ALBUMIN 1.7 GM/DL (3.2-5.2); BILIRUBIN,TOTAL 0.3 MG/DL (0.2-1.0); CALCIUM LEVEL 7.9 MG/DL (8.8-10.2); CREATININE FOR GFR 2.09 MG/DL (0.70-1.30); GLOMERULAR FILTRATION RATE 34.7 (>49); POTASSIUM SERUM 3.8 MEQ/L (3.5-5.1); TOTAL PROTEIN 5.9 GM/DL (6.4-8.2)
[2021-09-08 09:00] VITALS: O2SAT 98
[2021-09-08] MEDS: ASPIRIN 81MG ENTERIC TABLET PO SCH (09:19)
[2021-09-08] MEDS: CLOPIDOGREL 75 MG TAB PO SCH (09:19)
[2021-09-08] MEDS: ENOXAPARIN 30MG/0.3ML SYRINGE (J1650 PER 10MG) SC SCH (09:19)
[2021-09-08] MEDS: OMEPRAZOLE 20MG CAP PO SCH (09:19)
[2021-09-08] MEDS: PARoxetine 20MG TABLET PO SCH (09:19)
[2021-09-08] MEDS: HumaLOG INSULIN (NovoLOG) PER UNIT SC SCH ×4 (09:20→21:00)
[2021-09-08] MEDS: FUROSEMIDE 100MG/10ML VIAL (J1940) IV SCH ×2 (09:21→20:36)
[2021-09-08] MEDS: CARVedilol 6.25 MG TAB PO SCH ×2 (09:23→20:36)
[2021-09-08] MEDS: LEVEMIR (INSULIN DETEMIR) 1 UNITS/0.01ML SC SCH (11:54)
[2021-09-08 14:00] VITALS: BP 154/88
[2021-09-08] MEDS: ATORVASTATIN 20 MG TAB PO SCH (20:13)
[2021-09-08 21:00] VITALS: BP 115/57
[2021-09-09 03:40] VITALS: O2SAT 92
[2021-09-09 07:32] VITALS: BP 147/84
[2021-09-09 08:46] LABS: HEMATOCRIT 26.3 % (42.0-52.0); HEMOGLOBIN 7.9 g/dl (13.5-17.5); MEAN CORPUSCULAR HEMOGLOBIN 26.1 pg (27.0-33.0); MEAN CORPUSCULAR VOLUME 86.8 fl (80.0-96.0); PLATELET COUNT, AUTOMATED 168 10^3/uL (150-450); RED BLOOD COUNT 3.03 10^6/uL (4.30-6.10); WHITE BLOOD COUNT 3.5 10^3/uL (4.0-10.0)
[2021-09-09] MEDS: FUROSEMIDE 100MG/10ML VIAL (J1940) IV SCH (09:37)
[2021-09-09] MEDS: CLOPIDOGREL 75 MG TAB PO SCH (09:38)
[2021-09-09] MEDS: PARoxetine 20MG TABLET PO SCH (09:38)
[2021-09-09] MEDS: OMEPRAZOLE 20MG CAP PO SCH (09:38)
[2021-09-09] MEDS: ENOXAPARIN 30MG/0.3ML SYRINGE (J1650 PER 10MG) SC SCH (09:38)
[2021-09-09] MEDS: ASPIRIN 81MG ENTERIC TABLET PO SCH (09:39)
[2021-09-09] MEDS: CARVedilol 6.25 MG TAB PO SCH ×2 (09:39→20:39)
[2021-09-09] MEDS: HumaLOG INSULIN (NovoLOG) PER UNIT SC SCH ×4 (09:40→21:00)
[2021-09-09 10:31] LABS: ALBUMIN 1.8 GM/DL (3.2-5.2); BILIRUBIN,TOTAL 0.2 MG/DL (0.2-1.0); CALCIUM LEVEL 7.8 MG/DL (8.8-10.2); CREATININE FOR GFR 2.26 MG/DL (0.70-1.30); GLOMERULAR FILTRATION RATE 31.7 (>49); TOTAL PROTEIN 5.5 GM/DL (6.4-8.2)
[2021-09-09] MEDS: LEVEMIR (INSULIN DETEMIR) 1 UNITS/0.01ML SC SCH (13:55)
[2021-09-09 14:00] VITALS: BP 153/84
[2021-09-09 20:00] VITALS: O2SAT 87
[2021-09-09 20:05] VITALS: O2SAT 91
[2021-09-09] MEDS: ATORVASTATIN 20 MG TAB PO SCH (20:39)
[2021-09-09] MEDS: FUROSEMIDE 40MG/4ML VIAL (J1940) IV SCH (20:40)
[2021-09-09 22:00] VITALS: BP 132/81
[2021-09-10 06:00] VITALS: BP 140/79
[2021-09-10 06:28] LABS: HEMATOCRIT 26.7 % (42.0-52.0); HEMOGLOBIN 8.1 g/dl (13.5-17.5); MEAN CORPUSCULAR HEMOGLOBIN 26.1 pg (27.0-33.0); MEAN CORPUSCULAR HGB CONC 30.3 g/dl (32.0-36.5); MEAN CORPUSCULAR VOLUME 86.1 fl (80.0-96.0); PLATELET COUNT, AUTOMATED 162 10^3/uL (150-450); WHITE BLOOD COUNT 3.8 10^3/uL (4.0-10.0)
[2021-09-10 06:53] LABS: ALBUMIN 1.7 GM/DL (3.2-5.2); BILIRUBIN,TOTAL 0.2 MG/DL (0.2-1.0); CALCIUM LEVEL 7.8 MG/DL (8.8-10.2); CREATININE FOR GFR 2.36 MG/DL (0.70-1.30); GLOMERULAR FILTRATION RATE 30.1 (>49); POTASSIUM SERUM 3.8 MEQ/L (3.5-5.1); TOTAL PROTEIN 5.9 GM/DL (6.4-8.2)
[2021-09-10] MEDS: HumaLOG INSULIN (NovoLOG) PER UNIT SC SCH ×4 (08:03→21:00)
[2021-09-10] MEDS: CARVedilol 6.25 MG TAB PO SCH ×2 (08:04→21:23)
[2021-09-10] MEDS: ASPIRIN 81MG ENTERIC TABLET PO SCH (08:04)
[2021-09-10] MEDS: CLOPIDOGREL 75 MG TAB PO SCH (08:04)
[2021-09-10] MEDS: OMEPRAZOLE 20MG CAP PO SCH (08:04)
[2021-09-10] MEDS: PARoxetine 20MG TABLET PO SCH (08:05)
[2021-09-10] MEDS: FUROSEMIDE 40MG/4ML VIAL (J1940) IV SCH (08:05)
[2021-09-10] MEDS: ENOXAPARIN 30MG/0.3ML SYRINGE (J1650 PER 10MG) SC SCH (08:05)
[2021-09-10 09:00] VITALS: O2SAT 97
[2021-09-10] MEDS: LEVEMIR (INSULIN DETEMIR) 1 UNITS/0.01ML SC SCH (12:39)
[2021-09-10 14:00] VITALS: BP 142/80
[2021-09-10 16:59] LABS: PERCENT SATURATION 9.9 % (19.7-50.0); PHOSPHORUS LEVEL 3.4 MG/DL (2.5-4.9)
[2021-09-10 17:07] LABS: TOTAL 25(OH) VITAMIN D 21.3 NG/ML (30.0-100.0)
[2021-09-10] MEDS: ATORVASTATIN 20 MG TAB PO SCH (21:21)
[2021-09-10 22:00] VITALS: BP 132/64
[2021-09-11] VITALS (7 sets, daily range): BP systolic 127–147; BP diastolic 62–73; O2SAT 88–97
[2021-09-11] MEDS: HumaLOG INSULIN (NovoLOG) PER UNIT SC SCH ×4 (08:48→20:14)
[2021-09-11] MEDS: ENOXAPARIN 30MG/0.3ML SYRINGE (J1650 PER 10MG) SC SCH (08:48)
[2021-09-11] MEDS: TORSEMIDE (DEMADEX) 50 MG PER 1/2 TAB PO SCH (08:49)
[2021-09-11] MEDS: CLOPIDOGREL 75 MG TAB PO SCH (08:49)
[2021-09-11] MEDS: ASPIRIN 81MG ENTERIC TABLET PO SCH (08:49)
[2021-09-11] MEDS: OMEPRAZOLE 20MG CAP PO SCH (08:49)
[2021-09-11] MEDS: PARoxetine 20MG TABLET PO SCH (08:49)
[2021-09-11] MEDS: CARVedilol 6.25 MG TAB PO SCH ×2 (08:50→20:21)
[2021-09-11 08:56] LABS: HEMATOCRIT 28.7 % (42.0-52.0); HEMOGLOBIN 8.5 g/dl (13.5-17.5); MEAN CORPUSCULAR HEMOGLOBIN 25.9 pg (27.0-33.0); MEAN CORPUSCULAR HGB CONC 29.6 g/dl (32.0-36.5); MEAN CORPUSCULAR VOLUME 87.5 fl (80.0-96.0); PLATELET COUNT, AUTOMATED 205 10^3/uL (150-450); RED BLOOD COUNT 3.28 10^6/uL (4.30-6.10); WHITE BLOOD COUNT 4.4 10^3/uL (4.0-10.0)
[2021-09-11 09:20] LABS: ALBUMIN 1.9 GM/DL (3.2-5.2); BILIRUBIN,TOTAL 0.2 MG/DL (0.2-1.0); CALCIUM LEVEL 7.9 MG/DL (8.8-10.2); CREATININE FOR GFR 2.19 MG/DL (0.70-1.30); GLOMERULAR FILTRATION RATE 32.8 (>49); PERCENT SATURATION 9.9 % (19.7-50.0); PHOSPHORUS LEVEL 3.4 MG/DL (2.5-4.9); POTASSIUM SERUM 4.2 MEQ/L (3.5-5.1); TOTAL PROTEIN 5.8 GM/DL (6.4-8.2)
[2021-09-11] MEDS ORDERED: IRON SUCROSE 100MG 5ML VIAL (J1756 PER 1MG) IV SCH (10:25)
[2021-09-11] MEDS: VITAMIN D 1,000 INTERNATIONAL UNITS TABLET PO SCH (12:06)
[2021-09-11] MEDS: LEVEMIR (INSULIN DETEMIR) 1 UNITS/0.01ML SC SCH (12:07)
[2021-09-11] MEDS ORDERED: IRON SUCROSE 250 MG in NS 250 ML IV SCH (13:00)
[2021-09-11] MEDS ORDERED: VITAD1000T PO (18:38)
[2021-09-11] MEDS ORDERED: TORS100T PO (18:38)
[2021-09-11] MEDS: ATORVASTATIN 20 MG TAB PO SCH (20:20)
[2021-09-12 05:32] VITALS: BP 156/85
[2021-09-12 06:02] LABS: HEMATOCRIT 27.4 % (42.0-52.0); HEMOGLOBIN 8.1 g/dl (13.5-17.5); MEAN CORPUSCULAR HEMOGLOBIN 25.6 pg (27.0-33.0); MEAN CORPUSCULAR HGB CONC 29.6 g/dl (32.0-36.5); MEAN CORPUSCULAR VOLUME 86.7 fl (80.0-96.0); PLATELET COUNT, AUTOMATED 200 10^3/uL (150-450); RED BLOOD COUNT 3.16 10^6/uL (4.30-6.10); WHITE BLOOD COUNT 4.4 10^3/uL (4.0-10.0)
[2021-09-12 06:28] LABS: ALBUMIN 1.9 GM/DL (3.2-5.2); BILIRUBIN,TOTAL 0.1 MG/DL (0.2-1.0); CALCIUM LEVEL 7.8 MG/DL (8.8-10.2); CREATININE FOR GFR 2.18 MG/DL (0.70-1.30); TOTAL PROTEIN 5.7 GM/DL (6.4-8.2)
[2021-09-12] MEDS ORDERED: CARV6.25 PO (08:00)
[2021-09-12] MEDS: HumaLOG INSULIN (NovoLOG) PER UNIT SC SCH (08:12)
[2021-09-12] MEDS: ENOXAPARIN 30MG/0.3ML SYRINGE (J1650 PER 10MG) SC SCH (09:00)
[2021-09-12] MEDS ORDERED: CARVedilol 6.25 MG TAB PO SCH (09:00)
[2021-09-12 09:30] VITALS: BP 155/89
[2021-09-12] MEDS: OMEPRAZOLE 20MG CAP PO SCH (10:01)
[2021-09-12] MEDS: PARoxetine 20MG TABLET PO SCH (10:01)
[2021-09-12 10:02] VITALS: BP 155/84
[2021-09-12] MEDS: ASPIRIN 81MG ENTERIC TABLET PO SCH (10:02)
[2021-09-12] MEDS: TORSEMIDE (DEMADEX) 50 MG PER 1/2 TAB PO SCH (10:02)
[2021-09-12] MEDS: VITAMIN D 1,000 INTERNATIONAL UNITS TABLET PO SCH (10:03)
[2021-09-12] MEDS: CLOPIDOGREL 75 MG TAB PO SCH (10:03)
[2021-09-12 11:30] VITALS: BP 154/88
[2021-09-15] MEDS ORDERED: D31000TA2 PO (02:04)
== END 2021-09-12 11:23 | disposition home health service (06) | DRG 194 ==
LOC: M ED 16:49 → M ED INP 18:59 → ENRESERV 09-07 06:37 → M MSPAV 09-07 07:39
PROVIDERS: ADMIT Internal Medicine; ATTEND Internal Medicine
DX: I13.0 Hypertensive heart and chronic kidney disease with heart failure and stage 1 through stage 4 chronic kidney disease, or unspecified chronic kidney disease (principal); N17.9 Acute kidney failure, unspecified; J90 Pleural effusion, not elsewhere classified; E11.51 Type 2 diabetes mellitus with diabetic peripheral angiopathy without gangrene; L97.229 Non-pressure chronic ulcer of left calf with unspecified severity; L97.219 Non-pressure chronic ulcer of right calf with unspecified severity; F32.A Depression, unspecified; N18.9 Chronic kidney disease, unspecified; N48.89 Other specified disorders of penis; Z79.82 Long term (current) use of aspirin; Z79.899 Other long term (current) drug therapy; Z88.8 Allergy status to other drugs, medicaments and biological substances; I87.2 Venous insufficiency (chronic) (peripheral); Z89.421 Acquired absence of other right toe(s); Z87.891 Personal history of nicotine dependence; Z91.11 Patient's noncompliance with dietary regimen; J44.9 Chronic obstructive pulmonary disease, unspecified; F41.1 Generalized anxiety disorder; D64.9 Anemia, unspecified; I50.33 Acute on chronic diastolic (congestive) heart failure; K21.9 Gastro-esophageal reflux disease without esophagitis

== ENCOUNTER 2021-09-14 20:55 | Inpatient (IN) | payer BC ==
[~2021-09-14] VITALS: Ht 185.4 cm; Wt 94.5 kg
[~2021-09-14 20:55] MED LIST changes: +CEFD300C41 PO; +TORS100T PO; +VITAD1000T PO
[2021-09-14] MEDS ORDERED: CARVedilol 12.5 MG TAB PO ONE (21:35)
[2021-09-14 21:57] LABS: HEMATOCRIT 30.2 % (42.0-52.0); HEMOGLOBIN 9.5 g/dl (13.5-17.5); MEAN CORPUSCULAR HGB CONC 31.5 g/dl (32.0-36.5); MEAN CORPUSCULAR VOLUME 82.7 fl (80.0-96.0); PLATELET COUNT, AUTOMATED 262 10^3/uL (150-450); RED BLOOD COUNT 3.65 10^6/uL (4.30-6.10); WHITE BLOOD COUNT 11.2 10^3/uL (4.0-10.0)
[2021-09-14 22:18] LABS: CALCIUM LEVEL 8.4 MG/DL (8.8-10.2); CREATININE FOR GFR 2.02 MG/DL (0.70-1.30)
[2021-09-14] MEDS ORDERED: FUROSEMIDE 40MG/4ML VIAL (J1940) IV ONE (23:00)
[2021-09-14] MEDS ORDERED: ACETAMINOPHEN TAB 650MG DOSE (2X325MG) PO PRN (23:30)
[2021-09-14] MEDS ORDERED: DEXTROSE 50% 50 ML SYRINGE IV PRN (23:30)
[2021-09-14] MEDS ORDERED: GLUCOSE 4GM CHEW TABLET PO PRN (23:30)
[2021-09-14] MEDS ORDERED: GLUCAGON INJ 1MG VIAL SC PRN (23:30)
[2021-09-14 23:51] LABS: MAGNESIUM LEVEL 1.7 MG/DL (1.8-2.4)
[2021-09-15] MEDS: HumaLOG INSULIN (NovoLOG) PER UNIT SC SCH ×5 (00:02→21:00)
[2021-09-15 00:58] LABS: RSV AMPLIFICATION NEGATIVE (NEGATIVE)
[2021-09-15] MEDS ORDERED: VITA100093 PO (02:04)
[2021-09-15] MEDS ORDERED: CARV6.25 PO (02:04)
[2021-09-15] MEDS ORDERED: TORS100T PO (02:04)
[2021-09-15] MEDS ORDERED: HOME MED LIST COMPLETE! XX SCH (02:05)
[2021-09-15] MEDS ORDERED: MAGNESIUM OXIDE 400MG TAB (MAG-OX) PO ONE (03:00)
[2021-09-15] MEDS: HEPARIN SOD (PORCINE) 5000UNITS/ML 1ML VIAL/SYRINGE SQ SCH ×3 (06:23→21:50)
[2021-09-15 06:40] LABS: BASO % 0.3 % (0.0-1.0); HEMATOCRIT 26.1 % (42.0-52.0); HEMOGLOBIN 8.1 g/dl (13.5-17.5); LYMPH # 0.9 10^3/uL (1.5-5.0); LYMPH % 8.9 % (24.0-44.0); MEAN CORPUSCULAR VOLUME 83.9 fl (80.0-96.0); MONO # 0.4 10^3/uL (0.0-0.8); MONO % 4.5 % (2.0-8.0); NEUTROPHILS # 8.1 10^3/uL (1.5-8.5); NEUTROPHILS % 85.2 % (36.0-66.0); PLATELET COUNT, AUTOMATED 215 10^3/uL (150-450); RED BLOOD COUNT 3.11 10^6/uL (4.30-6.10); WHITE BLOOD COUNT 9.5 10^3/uL (4.0-10.0)
[2021-09-15 07:10] LABS: CALCIUM LEVEL 8.1 MG/DL (8.8-10.2); CREATININE FOR GFR 2.2 MG/DL (0.70-1.30); GLOMERULAR FILTRATION RATE 32.7 (>49); MAGNESIUM LEVEL 1.8 MG/DL (1.8-2.4); POTASSIUM SERUM 3.3 MEQ/L (3.5-5.1)
[2021-09-15] MEDS: CLOPIDOGREL 75 MG TAB PO SCH (08:22)
[2021-09-15] MEDS: ASPIRIN 81MG ENTERIC TABLET PO SCH (08:22)
[2021-09-15] MEDS: PARoxetine 20MG TABLET PO SCH (08:22)
[2021-09-15] MEDS: OMEPRAZOLE 20MG CAP PO SCH (08:22)
[2021-09-15] MEDS: CARVedilol 12.5 MG TAB PO SCH ×2 (08:23→21:54)
[2021-09-15] MEDS: TORSEMIDE (DEMADEX) 50 MG PER 1/2 TAB PO SCH ×2 (11:22→17:56)
[2021-09-15 14:48] VITALS: BP 137/63
[2021-09-15 17:56] VITALS: BP 118/62
[2021-09-15 21:00] VITALS: BP 130/63
[2021-09-15] MEDS: ATORVASTATIN 20 MG TAB PO SCH (21:50)
[2021-09-16 06:00] VITALS: BP 164/88
[2021-09-16] MEDS: HEPARIN SOD (PORCINE) 5000UNITS/ML 1ML VIAL/SYRINGE SQ SCH ×3 (06:05→21:25)
[2021-09-16] MEDS: HumaLOG INSULIN (NovoLOG) PER UNIT SC SCH ×4 (08:01→21:00)
[2021-09-16 08:08] LABS: HEMATOCRIT 26.6 % (42.0-52.0); MEAN CORPUSCULAR HEMOGLOBIN 25.5 pg (27.0-33.0); MEAN CORPUSCULAR HGB CONC 30.1 g/dl (32.0-36.5); MEAN CORPUSCULAR VOLUME 84.7 fl (80.0-96.0); PLATELET COUNT, AUTOMATED 181 10^3/uL (150-450); RED BLOOD COUNT 3.14 10^6/uL (4.30-6.10); WHITE BLOOD COUNT 5.5 10^3/uL (4.0-10.0)
[2021-09-16] MEDS ORDERED: FUROSEMIDE 100MG/10ML VIAL (J1940) IV ONE (08:20)
[2021-09-16 08:22] LABS: CALCIUM LEVEL 7.8 MG/DL (8.8-10.2); CREATININE FOR GFR 2.55 MG/DL (0.70-1.30); GLOMERULAR FILTRATION RATE 27.5 (>49); POTASSIUM SERUM 3.2 MEQ/L (3.5-5.1)
[2021-09-16] MEDS ORDERED: POTASSIUM CHLORIDE 10MEQ SR TABLET PO ONE (08:55)
[2021-09-16 09:00] VITALS: BP 150/58
[2021-09-16] MEDS: ASPIRIN 81MG ENTERIC TABLET PO SCH (09:31)
[2021-09-16] MEDS: CLOPIDOGREL 75 MG TAB PO SCH (09:31)
[2021-09-16] MEDS: PARoxetine 20MG TABLET PO SCH (09:32)
[2021-09-16] MEDS: OMEPRAZOLE 20MG CAP PO SCH (09:32)
[2021-09-16] MEDS: CARVedilol 12.5 MG TAB PO SCH ×2 (09:32→21:28)
[2021-09-16 14:00] VITALS: BP 131/63
[2021-09-16 14:30] VITALS: BP 168/77
[2021-09-16] MEDS: TORSEMIDE (DEMADEX) 50 MG PER 1/2 TAB PO SCH (18:29)
[2021-09-16] MEDS: ATORVASTATIN 20 MG TAB PO SCH (21:27)
[2021-09-16] MEDS ORDERED: RAMELTEON 8 MG TAB (ROZEREM) PO PRN (21:35)
[2021-09-16 22:00] VITALS: BP_SYST 175; BP_SYST 182; BP_DIAS 80; BP_DIAS 85
[2021-09-17 06:00] VITALS: BP 159/87
[2021-09-17] MEDS: HEPARIN SOD (PORCINE) 5000UNITS/ML 1ML VIAL/SYRINGE SQ SCH ×3 (06:08→21:25)
[2021-09-17 06:35] LABS: HEMATOCRIT 24.4 % (42.0-52.0); HEMOGLOBIN 7.3 g/dl (13.5-17.5); MEAN CORPUSCULAR HEMOGLOBIN 25.3 pg (27.0-33.0); MEAN CORPUSCULAR HGB CONC 29.9 g/dl (32.0-36.5); MEAN CORPUSCULAR VOLUME 84.7 fl (80.0-96.0); PLATELET COUNT, AUTOMATED 194 10^3/uL (150-450); RED BLOOD COUNT 2.88 10^6/uL (4.30-6.10); WHITE BLOOD COUNT 6.2 10^3/uL (4.0-10.0)
[2021-09-17 06:54] LABS: CALCIUM LEVEL 7.5 MG/DL (8.8-10.2); CREATININE FOR GFR 2.52 MG/DL (0.70-1.30); GLOMERULAR FILTRATION RATE 27.9 (>49); MAGNESIUM LEVEL 1.7 MG/DL (1.8-2.4); POTASSIUM SERUM 3.1 MEQ/L (3.5-5.1)
[2021-09-17] MEDS ORDERED: POTASSIUM CHLORIDE 10MEQ SR TABLET PO ONE (08:10)
[2021-09-17] MEDS: PARoxetine 20MG TABLET PO SCH (09:05)
[2021-09-17] MEDS: HumaLOG INSULIN (NovoLOG) PER UNIT SC SCH ×4 (09:05→21:00)
[2021-09-17] MEDS: OMEPRAZOLE 20MG CAP PO SCH (09:06)
[2021-09-17] MEDS: TORSEMIDE (DEMADEX) 50 MG PER 1/2 TAB PO SCH ×2 (09:06→17:12)
[2021-09-17] MEDS: ASPIRIN 81MG ENTERIC TABLET PO SCH (09:06)
[2021-09-17] MEDS: CLOPIDOGREL 75 MG TAB PO SCH (09:06)
[2021-09-17] MEDS: CARVedilol 12.5 MG TAB PO SCH ×2 (09:10→21:17)
[2021-09-17] MEDS: FERROUS SULFATE 325MG TAB PO SCH (13:24)
[2021-09-17 14:00] VITALS: BP 144/64
[2021-09-17] MEDS ORDERED: MAGNESIUM OXIDE 400MG TAB (MAG-OX) PO ONE (16:55)
[2021-09-17] MEDS: ATORVASTATIN 20 MG TAB PO SCH (21:18)
[2021-09-17 22:00] VITALS: BP 168/82
[2021-09-18] MEDS: HEPARIN SOD (PORCINE) 5000UNITS/ML 1ML VIAL/SYRINGE SQ SCH ×2 (05:13→13:38)
[2021-09-18 06:00] VITALS: BP_SYST 150; BP_SYST 162; BP_DIAS 70; BP_DIAS 78
[2021-09-18 07:10] LABS: HEMATOCRIT 24.5 % (42.0-52.0); HEMOGLOBIN 7.5 g/dl (13.5-17.5); MEAN CORPUSCULAR HGB CONC 30.6 g/dl (32.0-36.5); MEAN CORPUSCULAR VOLUME 84.8 fl (80.0-96.0); PLATELET COUNT, AUTOMATED 167 10^3/uL (150-450); RED BLOOD COUNT 2.89 10^6/uL (4.30-6.10); WHITE BLOOD COUNT 5.8 10^3/uL (4.0-10.0)
[2021-09-18 07:29] LABS: CALCIUM LEVEL 8.2 MG/DL (8.8-10.2); CREATININE FOR GFR 2.43 MG/DL (0.70-1.30); GLOMERULAR FILTRATION RATE 29.1 (>49); MAGNESIUM LEVEL 1.8 MG/DL (1.8-2.4)
[2021-09-18] MEDS: HumaLOG INSULIN (NovoLOG) PER UNIT SC SCH ×2 (07:30→13:36)
[2021-09-18] MEDS ORDERED: POTASSIUM CHLORIDE 10MEQ SR TABLET PO SCH (09:00)
[2021-09-18 10:40] VITALS: BP 122/52
[2021-09-18] MEDS: FERROUS SULFATE 325MG TAB PO SCH (10:40)
[2021-09-18] MEDS: CLOPIDOGREL 75 MG TAB PO SCH (10:40)
[2021-09-18] MEDS: OMEPRAZOLE 20MG CAP PO SCH (10:40)
[2021-09-18] MEDS: CARVedilol 12.5 MG TAB PO SCH (10:40)
[2021-09-18] MEDS: PARoxetine 20MG TABLET PO SCH (10:41)
[2021-09-18] MEDS: ASPIRIN 81MG ENTERIC TABLET PO SCH (10:41)
[2021-09-18] MEDS: TORSEMIDE (DEMADEX) 50 MG PER 1/2 TAB PO SCH (10:41)
[2021-09-18] MEDS ORDERED: POTA-136 PO (12:20)
[2021-09-18 14:00] VITALS: BP 151/74
== END 2021-09-18 15:13 | disposition home health service (06) | DRG 194 ==
LOC: M ED 20:55 → M ED INP 23:27 → ENRESERV 09-15 12:36 → M MSPAV 09-15 14:24
PROVIDERS: ADMIT Internal Medicine; ATTEND Family Medicine
DX: I13.0 Hypertensive heart and chronic kidney disease with heart failure and stage 1 through stage 4 chronic kidney disease, or unspecified chronic kidney disease (principal); J96.01 Acute respiratory failure with hypoxia; E10.22 Type 1 diabetes mellitus with diabetic chronic kidney disease; E10.621 Type 1 diabetes mellitus with foot ulcer; E10.51 Type 1 diabetes mellitus with diabetic peripheral angiopathy without gangrene; L97.529 Non-pressure chronic ulcer of other part of left foot with unspecified severity; I73.9 Peripheral vascular disease, unspecified; N18.32 Chronic kidney disease, stage 3b; E78.5 Hyperlipidemia, unspecified; K21.9 Gastro-esophageal reflux disease without esophagitis; F32.A Depression, unspecified; F41.9 Anxiety disorder, unspecified; G47.30 Sleep apnea, unspecified; Z72.3 Lack of physical exercise; Z20.822 Contact with and (suspected) exposure to COVID-19; Z79.82 Long term (current) use of aspirin; Z79.4 Long term (current) use of insulin; Z79.899 Other long term (current) drug therapy; Z88.8 Allergy status to other drugs, medicaments and biological substances; Z89.421 Acquired absence of other right toe(s); I50.33 Acute on chronic diastolic (congestive) heart failure

== ENCOUNTER 2021-09-20 09:14 | Inpatient (IN) | payer BC ==
[~2021-09-20] VITALS: Ht 185.4 cm; Wt 94.5 kg
[~2021-09-20 09:14] MED LIST changes: +VITA100093 PO
[2021-09-20 10:03] LABS: BASO % 0.3 % (0.0-1.0); EOS % 0.1 % (0.0-3.0); HEMATOCRIT 23.8 % (42.0-52.0); HEMOGLOBIN 7.2 g/dl (13.5-17.5); LYMPH # 0.6 10^3/uL (1.5-5.0); LYMPH % 8.5 % (24.0-44.0); MEAN CORPUSCULAR HEMOGLOBIN 24.9 pg (27.0-33.0); MEAN CORPUSCULAR HGB CONC 30.3 g/dl (32.0-36.5); MEAN CORPUSCULAR VOLUME 82.4 fl (80.0-96.0); MONO # 0.4 10^3/uL (0.0-0.8); MONO % 5.7 % (2.0-8.0); NEUTROPHILS # 5.8 10^3/uL (1.5-8.5); NEUTROPHILS % 84.5 % (36.0-66.0); PLATELET COUNT, AUTOMATED 175 10^3/uL (150-450); RED BLOOD COUNT 2.89 10^6/uL (4.30-6.10); WHITE BLOOD COUNT 6.8 10^3/uL (4.0-10.0)
[2021-09-20] MEDS ORDERED: VANCOMYCIN HCL 2,000 MG in D5W 500 ML IV ONE (10:20)
[2021-09-20 10:21] LABS: ERYTHROCYTE SEDIMENTATION RATE 126 mm/hr (0-20)
[2021-09-20] MEDS ORDERED: VANCOMYCIN HCL 1,000 MG, VIAL MATE ADAPTER 1 EACH in NS 250 ML IV ONE ×2 (10:30→11:30)
[2021-09-20 10:46] LABS: RSV AMPLIFICATION NEGATIVE (NEGATIVE)
[2021-09-20 10:52] LABS: ALBUMIN 1.5 GM/DL (3.2-5.2); BILIRUBIN,DIRECT 0.4 MG/DL (0.0-0.2); BILIRUBIN,TOTAL 0.6 MG/DL (0.2-1.0); C REACTIVE PROTEIN QUANTITATIV 17.7 MG/DL (0.00-0.30); CALCIUM LEVEL 7.8 MG/DL (8.8-10.2); CREATININE FOR GFR 2.61 MG/DL (0.70-1.30); GLOMERULAR FILTRATION RATE 26.8 (>49); POTASSIUM SERUM 2.8 MEQ/L (3.5-5.1); THYROID STIMULATING HORMONE 1.38 uIU/ML (0.358-3.740)
[2021-09-20] MEDS ORDERED: HOME MED LIST COMPLETE! XX SCH (11:35)
[2021-09-20] MEDS ORDERED: GLUCOSE 4GM CHEW TABLET PO PRN (11:55)
[2021-09-20] MEDS ORDERED: MOM 30ML SUSPENSION UDC PO PRN (11:55)
[2021-09-20] MEDS ORDERED: GLUCAGON INJ 1MG VIAL SC PRN (11:55)
[2021-09-20] MEDS ORDERED: DEXTROSE 50% 50 ML SYRINGE IV PRN (11:55)
[2021-09-20] MEDS ORDERED: ACETAMINOPHEN TAB 650MG DOSE (2X325MG) PO PRN (11:55)
[2021-09-20] MEDS: HumaLOG INSULIN (NovoLOG) PER UNIT SC SCH ×3 (12:32→20:35)
[2021-09-20 13:53] VITALS: BP 128/60
[2021-09-20] MEDS: LEVEMIR (INSULIN DETEMIR) 1 UNITS/0.01ML SC SCH (14:11)
[2021-09-20] MEDS: CLOPIDOGREL 75 MG TAB PO SCH (14:11)
[2021-09-20] MEDS: ASPIRIN 81MG ENTERIC TABLET PO SCH (14:11)
[2021-09-20] MEDS: PARoxetine 20MG TABLET PO SCH (14:11)
[2021-09-20] MEDS: CARVedilol 12.5 MG TAB PO SCH ×2 (14:12→20:41)
[2021-09-20] MEDS ORDERED: POTASSIUM CHLORIDE 10MEQ SR TABLET PO ONE ×2 (16:00→18:00)
[2021-09-20] MEDS: HEPARIN SOD (PORCINE) 5000UNITS/ML 1ML VIAL/SYRINGE SC SCH (20:39)
[2021-09-20] MEDS: ATORVASTATIN 20 MG TAB PO SCH (20:39)
[2021-09-20 22:00] VITALS: BP 116/66
[2021-09-20 22:21] VITALS: BP 102/44
[2021-09-20 22:38] VITALS: BP 126/57
[2021-09-20 23:21] VITALS: BP 128/59
[2021-09-21] VITALS (8 sets, daily range): BP systolic 125–164; BP diastolic 58–81
[2021-09-21 06:23] LABS: HEMATOCRIT 26.3 % (42.0-52.0); HEMOGLOBIN 8.2 g/dl (13.5-17.5); MEAN CORPUSCULAR HEMOGLOBIN 26.1 pg (27.0-33.0); MEAN CORPUSCULAR HGB CONC 31.2 g/dl (32.0-36.5); MEAN CORPUSCULAR VOLUME 83.8 fl (80.0-96.0); PLATELET COUNT, AUTOMATED 174 10^3/uL (150-450); RED BLOOD COUNT 3.14 10^6/uL (4.30-6.10); WHITE BLOOD COUNT 5.9 10^3/uL (4.0-10.0)
[2021-09-21 06:58] LABS: CALCIUM LEVEL 7.7 MG/DL (8.8-10.2); CREATININE FOR GFR 2.97 MG/DL (0.70-1.30); GLOMERULAR FILTRATION RATE 23.1 (>49); MAGNESIUM LEVEL 1.8 MG/DL (1.8-2.4); POTASSIUM SERUM 3.6 MEQ/L (3.5-5.1)
[2021-09-21] MEDS: HumaLOG INSULIN (NovoLOG) PER UNIT SC SCH ×4 (07:30→20:35)
[2021-09-21] MEDS ORDERED: MAGNESIUM OXIDE 400MG TAB (MAG-OX) PO ONE (07:45)
[2021-09-21] MEDS ORDERED: TORSEMIDE (DEMADEX) 50 MG PER 1/2 TAB PO SCH (09:00)
[2021-09-21] MEDS: OMEPRAZOLE 20MG CAP PO SCH (09:35)
[2021-09-21] MEDS: POTASSIUM CHLORIDE 10MEQ SR TABLET PO SCH (09:36)
[2021-09-21] MEDS: VITAMIN D 1,000 INTERNATIONAL UNITS TABLET PO SCH (09:36)
[2021-09-21] MEDS: ASPIRIN 81MG ENTERIC TABLET PO SCH (09:36)
[2021-09-21] MEDS: FENOFIBRATE 145MG TABLET (TRICOR) PO SCH (09:36)
[2021-09-21] MEDS: PARoxetine 20MG TABLET PO SCH (09:36)
[2021-09-21] MEDS: CLOPIDOGREL 75 MG TAB PO SCH (09:38)
[2021-09-21] MEDS: HEPARIN SOD (PORCINE) 5000UNITS/ML 1ML VIAL/SYRINGE SC SCH ×2 (09:38→20:17)
[2021-09-21] MEDS: CARVedilol 12.5 MG TAB PO SCH ×2 (09:38→20:18)
[2021-09-21] MEDS: LOPERAMIDE 2 MG CAPLET PO PRN (10:40)
[2021-09-21] MEDS: LACTOBACILLUS ACIDOPHILUS CAP (BACID) PO SCH ×2 (12:20→19:01)
[2021-09-21] MEDS: LEVEMIR (INSULIN DETEMIR) 1 UNITS/0.01ML SC SCH (12:23)
[2021-09-21] MEDS: VANCOMYCIN HCL 1,000 MG, VIAL MATE ADAPTER 1 EACH in NS 250 ML IV SCH (19:01)
[2021-09-21] MEDS: ATORVASTATIN 20 MG TAB PO SCH (20:17)
[2021-09-22] MEDS: VANCOMYCIN ORAL SOL 250MG/5ML ORAL SYRINGE PO SCH ×2 (00:24→06:09)
[2021-09-22 02:31] VITALS: BP 142/70
[2021-09-22 06:13] VITALS: BP 143/70
[2021-09-22 06:27] LABS: HEMATOCRIT 27.7 % (42.0-52.0); HEMOGLOBIN 8.6 g/dl (13.5-17.5); MEAN CORPUSCULAR HEMOGLOBIN 25.8 pg (27.0-33.0); MEAN CORPUSCULAR VOLUME 83.2 fl (80.0-96.0); PLATELET COUNT, AUTOMATED 182 10^3/uL (150-450); RED BLOOD COUNT 3.33 10^6/uL (4.30-6.10); WHITE BLOOD COUNT 6.1 10^3/uL (4.0-10.0)
[2021-09-22 06:51] LABS: CALCIUM LEVEL 7.8 MG/DL (8.8-10.2); CREATININE FOR GFR 2.71 MG/DL (0.70-1.30); GLOMERULAR FILTRATION RATE 25.7 (>49); POTASSIUM SERUM 3.2 MEQ/L (3.5-5.1)
[2021-09-22] MEDS ORDERED: POTASSIUM CHLORIDE 10MEQ SR TABLET PO ONE ×2 (08:15→12:00)
[2021-09-22] MEDS: HEPARIN SOD (PORCINE) 5000UNITS/ML 1ML VIAL/SYRINGE SC SCH ×2 (08:54→20:21)
[2021-09-22] MEDS: HumaLOG INSULIN (NovoLOG) PER UNIT SC SCH ×4 (08:55→20:22)
[2021-09-22] MEDS: FENOFIBRATE 145MG TABLET (TRICOR) PO SCH (08:55)
[2021-09-22] MEDS: ASPIRIN 81MG ENTERIC TABLET PO SCH (08:55)
[2021-09-22] MEDS: OMEPRAZOLE 20MG CAP PO SCH (08:55)
[2021-09-22] MEDS: PARoxetine 20MG TABLET PO SCH (08:56)
[2021-09-22] MEDS: LACTOBACILLUS ACIDOPHILUS CAP (BACID) PO SCH ×3 (08:57→18:25)
[2021-09-22] MEDS: CLOPIDOGREL 75 MG TAB PO SCH (08:57)
[2021-09-22] MEDS: VITAMIN D 1,000 INTERNATIONAL UNITS TABLET PO SCH (08:58)
[2021-09-22] MEDS: CARVedilol 12.5 MG TAB PO SCH ×2 (08:58→20:21)
[2021-09-22] MEDS ORDERED: DARBEPOETIN 40 MCG/0.4 ML *NON-DIALYSIS* SYRINGE (J0881) SQ SCH (09:00)
[2021-09-22 10:00] VITALS: BP 139/71
[2021-09-22] MEDS: POTASSIUM CHLORIDE 10MEQ SR TABLET PO SCH (10:23)
[2021-09-22] MEDS: TORSEMIDE (DEMADEX) 50 MG PER 1/2 TAB PO SCH (13:53)
[2021-09-22] MEDS: LEVEMIR (INSULIN DETEMIR) 1 UNITS/0.01ML SC SCH (13:54)
[2021-09-22 14:00] VITALS: BP 142/73
[2021-09-22 18:00] VITALS: BP 144/75
[2021-09-22] MEDS: VANCOMYCIN HCL 1,000 MG, VIAL MATE ADAPTER 1 EACH in NS 250 ML IV SCH (18:27)
[2021-09-22] MEDS: ATORVASTATIN 20 MG TAB PO SCH (20:21)
[2021-09-22] MEDS: LOPERAMIDE 2 MG CAPLET PO PRN (20:21)
[2021-09-22 21:30] VITALS: BP 143/70
[2021-09-23 02:00] VITALS: BP 153/77
[2021-09-23 06:00] VITALS: BP 153/75
[2021-09-23 06:20] LABS: HEMATOCRIT 26.8 % (42.0-52.0); HEMOGLOBIN 8.3 g/dl (13.5-17.5); MEAN CORPUSCULAR HEMOGLOBIN 25.7 pg (27.0-33.0); PLATELET COUNT, AUTOMATED 183 10^3/uL (150-450); RED BLOOD COUNT 3.23 10^6/uL (4.30-6.10)
[2021-09-23 06:49] LABS: CALCIUM LEVEL 7.5 MG/DL (8.8-10.2); CREATININE FOR GFR 2.3 MG/DL (0.70-1.30); PHOSPHORUS LEVEL 2.7 MG/DL (2.5-4.9); POTASSIUM SERUM 3.9 MEQ/L (3.5-5.1)
[2021-09-23] MEDS: HEPARIN SOD (PORCINE) 5000UNITS/ML 1ML VIAL/SYRINGE SC SCH ×2 (08:24→21:02)
[2021-09-23] MEDS: ASPIRIN 81MG ENTERIC TABLET PO SCH (08:24)
[2021-09-23] MEDS: LACTOBACILLUS ACIDOPHILUS CAP (BACID) PO SCH ×3 (08:24→17:49)
[2021-09-23] MEDS: HumaLOG INSULIN (NovoLOG) PER UNIT SC SCH ×4 (08:24→20:57)
[2021-09-23] MEDS: PARoxetine 20MG TABLET PO SCH (08:25)
[2021-09-23] MEDS: OMEPRAZOLE 20MG CAP PO SCH (08:25)
[2021-09-23] MEDS: TORSEMIDE (DEMADEX) 50 MG PER 1/2 TAB PO SCH (08:25)
[2021-09-23] MEDS: FENOFIBRATE 145MG TABLET (TRICOR) PO SCH (08:25)
[2021-09-23] MEDS: POTASSIUM CHLORIDE 10MEQ SR TABLET PO SCH (08:27)
[2021-09-23] MEDS: CARVedilol 12.5 MG TAB PO SCH ×2 (08:27→21:01)
[2021-09-23] MEDS: CLOPIDOGREL 75 MG TAB PO SCH (08:27)
[2021-09-23] MEDS: VITAMIN D 1,000 INTERNATIONAL UNITS TABLET PO SCH (08:27)
[2021-09-23 10:00] VITALS: BP 148/74
[2021-09-23] MEDS: LEVEMIR (INSULIN DETEMIR) 1 UNITS/0.01ML SC SCH (12:04)
[2021-09-23 14:00] VITALS: BP 172/95
[2021-09-23 18:00] VITALS: BP 147/70
[2021-09-23] MEDS: VANCOMYCIN HCL 1,000 MG, VIAL MATE ADAPTER 1 EACH in NS 250 ML IV SCH (18:07)
[2021-09-23] MEDS: ATORVASTATIN 20 MG TAB PO SCH (21:01)
[2021-09-23 22:00] VITALS: BP 135/59
[2021-09-24 02:00] VITALS: BP 162/86
[2021-09-24 06:00] VITALS: BP 161/56
[2021-09-24 06:22] LABS: HEMATOCRIT 27.9 % (42.0-52.0); HEMOGLOBIN 8.6 g/dl (13.5-17.5); MEAN CORPUSCULAR HEMOGLOBIN 25.5 pg (27.0-33.0); MEAN CORPUSCULAR HGB CONC 30.8 g/dl (32.0-36.5); MEAN CORPUSCULAR VOLUME 82.8 fl (80.0-96.0); PLATELET COUNT, AUTOMATED 187 10^3/uL (150-450); RED BLOOD COUNT 3.37 10^6/uL (4.30-6.10); WHITE BLOOD COUNT 7.2 10^3/uL (4.0-10.0)
[2021-09-24 06:45] LABS: CALCIUM LEVEL 7.8 MG/DL (8.8-10.2); CREATININE FOR GFR 2.2 MG/DL (0.70-1.30); GLOMERULAR FILTRATION RATE 32.7 (>49); POTASSIUM SERUM 4.1 MEQ/L (3.5-5.1)
[2021-09-24] MEDS: HEPARIN SOD (PORCINE) 5000UNITS/ML 1ML VIAL/SYRINGE SC SCH ×2 (09:07→20:39)
[2021-09-24] MEDS: LACTOBACILLUS ACIDOPHILUS CAP (BACID) PO SCH ×3 (09:07→17:38)
[2021-09-24] MEDS: ASPIRIN 81MG ENTERIC TABLET PO SCH (09:07)
[2021-09-24] MEDS: OMEPRAZOLE 20MG CAP PO SCH (09:07)
[2021-09-24] MEDS: TORSEMIDE (DEMADEX) 50 MG PER 1/2 TAB PO SCH (09:08)
[2021-09-24] MEDS: PARoxetine 20MG TABLET PO SCH (09:08)
[2021-09-24] MEDS: VITAMIN D 1,000 INTERNATIONAL UNITS TABLET PO SCH (09:08)
[2021-09-24] MEDS: FENOFIBRATE 145MG TABLET (TRICOR) PO SCH (09:08)
[2021-09-24] MEDS: CLOPIDOGREL 75 MG TAB PO SCH (09:09)
[2021-09-24] MEDS: HumaLOG INSULIN (NovoLOG) PER UNIT SC SCH ×4 (09:09→19:40)
[2021-09-24] MEDS: POTASSIUM CHLORIDE 10MEQ SR TABLET PO SCH (09:09)
[2021-09-24] MEDS: CARVedilol 12.5 MG TAB PO SCH ×2 (09:11→20:39)
[2021-09-24] MEDS: LEVEMIR (INSULIN DETEMIR) 1 UNITS/0.01ML SC SCH (12:09)
[2021-09-24 14:00] VITALS: BP 136/67
[2021-09-24] MEDS: AMPICILLIN SOD/SULBACTAM SOD 3 GM in D5W MINI-BAG PLUS 100 ML IV SCH (16:06)
[2021-09-24 18:00] VITALS: BP 162/73
[2021-09-24] MEDS: ATORVASTATIN 20 MG TAB PO SCH (20:39)
[2021-09-24 22:00] VITALS: BP 163/82
[2021-09-25] MEDS: AMPICILLIN SOD/SULBACTAM SOD 3 GM in D5W MINI-BAG PLUS 100 ML IV SCH ×3 (00:40→16:11)
[2021-09-25 06:00] VITALS: BP 164/83
[2021-09-25 06:36] LABS: HEMATOCRIT 27.2 % (42.0-52.0); HEMOGLOBIN 8.3 g/dl (13.5-17.5); MEAN CORPUSCULAR HEMOGLOBIN 25.3 pg (27.0-33.0); MEAN CORPUSCULAR HGB CONC 30.5 g/dl (32.0-36.5); MEAN CORPUSCULAR VOLUME 82.9 fl (80.0-96.0); PLATELET COUNT, AUTOMATED 204 10^3/uL (150-450); RED BLOOD COUNT 3.28 10^6/uL (4.30-6.10); WHITE BLOOD COUNT 9.1 10^3/uL (4.0-10.0)
[2021-09-25 06:52] LABS: CALCIUM LEVEL 7.4 MG/DL (8.8-10.2); CREATININE FOR GFR 2.16 MG/DL (0.70-1.30); GLOMERULAR FILTRATION RATE 33.4 (>49); POTASSIUM SERUM 4.2 MEQ/L (3.5-5.1)
[2021-09-25] MEDS: HumaLOG INSULIN (NovoLOG) PER UNIT SC SCH ×3 (08:04→17:53)
[2021-09-25] MEDS: ASPIRIN 81MG ENTERIC TABLET PO SCH (08:05)
[2021-09-25] MEDS: LACTOBACILLUS ACIDOPHILUS CAP (BACID) PO SCH ×3 (08:05→17:54)
[2021-09-25] MEDS: OMEPRAZOLE 20MG CAP PO SCH (08:05)
[2021-09-25] MEDS: FENOFIBRATE 145MG TABLET (TRICOR) PO SCH (08:05)
[2021-09-25] MEDS: HEPARIN SOD (PORCINE) 5000UNITS/ML 1ML VIAL/SYRINGE SC SCH (08:05)
[2021-09-25] MEDS: TORSEMIDE (DEMADEX) 50 MG PER 1/2 TAB PO SCH (08:05)
[2021-09-25] MEDS: PARoxetine 20MG TABLET PO SCH (08:05)
[2021-09-25] MEDS: VITAMIN D 1,000 INTERNATIONAL UNITS TABLET PO SCH (08:06)
[2021-09-25] MEDS: CLOPIDOGREL 75 MG TAB PO SCH (08:06)
[2021-09-25] MEDS: POTASSIUM CHLORIDE 10MEQ SR TABLET PO SCH (08:06)
[2021-09-25 08:07] VITALS: BP 162/83
[2021-09-25] MEDS: CARVedilol 12.5 MG TAB PO SCH (08:07)
[2021-09-25 10:00] VITALS: BP 159/79
[2021-09-25] MEDS: LEVEMIR (INSULIN DETEMIR) 1 UNITS/0.01ML SC SCH (12:37)
[2021-09-25 14:00] VITALS: BP 128/66
[2021-09-25 18:00] VITALS: BP 172/87
== END 2021-09-25 20:20 | disposition short-term general hospital (02) | DRG 380 ==
LOC: M ED 09:14 → EDBD 09:14 → M ED INP 11:54 → ENRESERV 12:35 → M MSPAV 13:44
PROVIDERS: ADMIT Internal Medicine; ATTEND Internal Medicine
DX: E11.621 Type 2 diabetes mellitus with foot ulcer (principal); L97.529 Non-pressure chronic ulcer of other part of left foot with unspecified severity; I13.0 Hypertensive heart and chronic kidney disease with heart failure and stage 1 through stage 4 chronic kidney disease, or unspecified chronic kidney disease; I50.32 Chronic diastolic (congestive) heart failure; E11.22 Type 2 diabetes mellitus with diabetic chronic kidney disease; E11.42 Type 2 diabetes mellitus with diabetic polyneuropathy; E11.51 Type 2 diabetes mellitus with diabetic peripheral angiopathy without gangrene; E11.622 Type 2 diabetes mellitus with other skin ulcer; N18.30 Chronic kidney disease, stage 3 unspecified; R55 Syncope and collapse; E78.5 Hyperlipidemia, unspecified; I87.2 Venous insufficiency (chronic) (peripheral); F41.1 Generalized anxiety disorder; K21.9 Gastro-esophageal reflux disease without esophagitis; Z87.891 Personal history of nicotine dependence; E87.6 Hypokalemia; D64.9 Anemia, unspecified; I73.9 Peripheral vascular disease, unspecified; F32.A Depression, unspecified; Z20.822 Contact with and (suspected) exposure to COVID-19; Z79.82 Long term (current) use of aspirin; Z79.4 Long term (current) use of insulin; Z79.899 Other long term (current) drug therapy; Z88.8 Allergy status to other drugs, medicaments and biological substances; Z89.421 Acquired absence of other right toe(s); M86.60 Other chronic osteomyelitis, unspecified site; E11.69 Type 2 diabetes mellitus with other specified complication; J44.9 Chronic obstructive pulmonary disease, unspecified; L03.116 Cellulitis of left lower limb; N17.9 Acute kidney failure, unspecified; E87.1 Hypo-osmolality and hyponatremia; N04.9 Nephrotic syndrome with unspecified morphologic changes

== ENCOUNTER 2021-10-05 14:45 | Inpatient (IN) | payer BC ==
[~2021-10-05] VITALS: Ht 185.4 cm; Wt 92.2 kg
[~2021-10-05 14:45] MED LIST changes: -ACET1TAB16 PO; +ACET300T48 PO
[2021-10-05] MEDS ORDERED: GLUCAGON INJ 1MG VIAL SC PRN (16:40)
[2021-10-05] MEDS ORDERED: GLUCOSE 4GM CHEW TABLET PO PRN (16:40)
[2021-10-05] MEDS ORDERED: DEXTROSE 50% 50 ML SYRINGE IV PRN (16:40)
[2021-10-05] MEDS ORDERED: BISACODYL 10 MG SUPP PR PRN (16:40)
[2021-10-05] MEDS: REMEDY PHYTOPLEX Z-GUARD PASTE 113GM TUBE (FROM STOREROOM PRODUCT) TOP SCH (22:30)
[2021-10-05 22:40] VITALS: BP 164/92
[2021-10-05] MEDS ORDERED: AMLO1TAB24 PO (23:29)
[2021-10-05] MEDS ORDERED: HOME MED LIST COMPLETE! XX SCH (23:30)
[2021-10-06] MEDS: HumaLOG INSULIN (NovoLOG) PER UNIT SC SCH ×6 (00:02→20:00)
[2021-10-06] MEDS: ATORVASTATIN 20 MG TAB PO SCH ×2 (00:09→20:01)
[2021-10-06] MEDS: CARVedilol 12.5 MG TAB PO SCH ×3 (00:09→20:03)
[2021-10-06] MEDS: ACETAMINOPHEN 500 MG TAB PO SCH ×4 (00:09→20:06)
[2021-10-06] MEDS: DOCUSATE SODIUM 100MG CAPSULE PO SCH ×3 (00:10→20:00)
[2021-10-06] MEDS: SENNA 8.6 MG TAB (SENOKOT) PO SCH ×2 (00:10→20:00)
[2021-10-06 06:07] VITALS: BP 176/88
[2021-10-06 06:38] LABS: BASO % 1.2 % (0.0-1.0); EOS # 0.1 10^3/uL (0.0-0.5); HEMATOCRIT 25.6 % (42.0-52.0); HEMOGLOBIN 7.9 g/dl (13.5-17.5); LYMPH # 1.2 10^3/uL (1.5-5.0); LYMPH % 33.2 % (24.0-44.0); MEAN CORPUSCULAR HEMOGLOBIN 27.2 pg (27.0-33.0); MEAN CORPUSCULAR HGB CONC 30.9 g/dl (32.0-36.5); MEAN CORPUSCULAR VOLUME 88.3 fl (80.0-96.0); MONO # 0.3 10^3/uL (0.0-0.8); MONO % 7.5 % (2.0-8.0); NEUTROPHILS # 1.9 10^3/uL (1.5-8.5); NEUTROPHILS % 55.5 % (36.0-66.0); PLATELET COUNT, AUTOMATED 129 10^3/uL (150-450); WHITE BLOOD COUNT 3.5 10^3/uL (4.0-10.0)
[2021-10-06 07:05] LABS: ALBUMIN 1.5 GM/DL (3.2-5.2); BILIRUBIN,TOTAL 0.2 MG/DL (0.2-1.0); CALCIUM LEVEL 7.8 MG/DL (8.8-10.2); CREATININE FOR GFR 1.38 MG/DL (0.70-1.30); POTASSIUM SERUM 4.5 MEQ/L (3.5-5.1); TOTAL PROTEIN 5.6 GM/DL (6.4-8.2)
[2021-10-06] MEDS: HEPARIN SOD (PORCINE) 5000UNITS/ML 1ML VIAL/SYRINGE SC SCH ×2 (09:08→20:01)
[2021-10-06] MEDS: VITAMIN D 1,000 INTERNATIONAL UNITS TABLET PO SCH (09:08)
[2021-10-06] MEDS: PANTOPRAZOLE 40MG TAB (PROTONIX) PO SCH (09:08)
[2021-10-06] MEDS: PARoxetine 20MG TABLET PO SCH (09:08)
[2021-10-06] MEDS: ASPIRIN 81MG ENTERIC TABLET PO SCH (09:08)
[2021-10-06] MEDS: LEVEMIR (INSULIN DETEMIR) 1 UNITS/0.01ML SC SCH (09:09)
[2021-10-06] MEDS: CLOPIDOGREL 75 MG TAB PO SCH (09:09)
[2021-10-06] MEDS: FENOFIBRATE 145MG TABLET (TRICOR) PO SCH (09:09)
[2021-10-06] MEDS: REMEDY PHYTOPLEX Z-GUARD PASTE 113GM TUBE (FROM STOREROOM PRODUCT) TOP SCH ×3 (09:10→20:05)
[2021-10-06 15:00] VITALS: BP 176/86
[2021-10-06] MEDS ORDERED: LOPERAMIDE 2 MG CAPLET PO ONE (17:25)
[2021-10-06 19:45] VITALS: BP 186/92
[2021-10-06] MEDS: **hydrALAZINE** 50 MG TAB PO SCH ×2 (20:38→23:17)
[2021-10-06] MEDS ORDERED: RAMELTEON 8 MG TAB (ROZEREM) PO PRN (23:20)
[2021-10-07 05:36] VITALS: BP 164/82
[2021-10-07] MEDS: **hydrALAZINE** 50 MG TAB PO SCH ×4 (05:41→23:26)
[2021-10-07] MEDS: ACETAMINOPHEN 500 MG TAB PO SCH ×3 (05:42→21:26)
[2021-10-07] MEDS: PANTOPRAZOLE 40MG TAB (PROTONIX) PO SCH (08:51)
[2021-10-07] MEDS: ASPIRIN 81MG ENTERIC TABLET PO SCH (08:51)
[2021-10-07] MEDS: VITAMIN D 1,000 INTERNATIONAL UNITS TABLET PO SCH (08:51)
[2021-10-07] MEDS: CARVedilol 12.5 MG TAB PO SCH ×2 (08:54→21:28)
[2021-10-07] MEDS: CLOPIDOGREL 75 MG TAB PO SCH (08:54)
[2021-10-07] MEDS: HEPARIN SOD (PORCINE) 5000UNITS/ML 1ML VIAL/SYRINGE SC SCH ×2 (08:55→21:00)
[2021-10-07] MEDS: LEVEMIR (INSULIN DETEMIR) 1 UNITS/0.01ML SC SCH (08:56)
[2021-10-07] MEDS: PARoxetine 20MG TABLET PO SCH (08:56)
[2021-10-07] MEDS: FENOFIBRATE 145MG TABLET (TRICOR) PO SCH (08:56)
[2021-10-07] MEDS: HumaLOG INSULIN (NovoLOG) PER UNIT SC SCH ×4 (08:58→21:00)
[2021-10-07] MEDS: REMEDY PHYTOPLEX Z-GUARD PASTE 113GM TUBE (FROM STOREROOM PRODUCT) TOP SCH ×3 (08:59→21:00)
[2021-10-07 09:06] LABS: BASO % 0.7 % (0.0-1.0); EOS # 0.1 10^3/uL (0.0-0.5); EOS % 1.7 % (0.0-3.0); HEMATOCRIT 29.2 % (42.0-52.0); HEMOGLOBIN 8.9 g/dl (13.5-17.5); LYMPH # 1.1 10^3/uL (1.5-5.0); LYMPH % 26.1 % (24.0-44.0); MEAN CORPUSCULAR HEMOGLOBIN 27.1 pg (27.0-33.0); MEAN CORPUSCULAR HGB CONC 30.5 g/dl (32.0-36.5); MONO # 0.2 10^3/uL (0.0-0.8); MONO % 5.2 % (2.0-8.0); NEUTROPHILS # 2.8 10^3/uL (1.5-8.5); NEUTROPHILS % 65.8 % (36.0-66.0); PLATELET COUNT, AUTOMATED 165 10^3/uL (150-450); RED BLOOD COUNT 3.28 10^6/uL (4.30-6.10); WHITE BLOOD COUNT 4.2 10^3/uL (4.0-10.0)
[2021-10-07 09:32] LABS: CALCIUM LEVEL 8.2 MG/DL (8.8-10.2); CREATININE FOR GFR 1.52 MG/DL (0.70-1.30); POTASSIUM SERUM 4.8 MEQ/L (3.5-5.1)
[2021-10-07 14:00] VITALS: BP 156/75
[2021-10-07 17:15] VITALS: BP 154/72
[2021-10-07 21:00] VITALS: BP 137/65
[2021-10-07] MEDS: ATORVASTATIN 20 MG TAB PO SCH (21:26)
[2021-10-07] MEDS: RAMELTEON 8 MG TAB (ROZEREM) PO SCH (21:27)
[2021-10-08] MEDS: **hydrALAZINE** 50 MG TAB PO SCH ×4 (05:33→23:20)
[2021-10-08] MEDS: ACETAMINOPHEN 500 MG TAB PO SCH ×3 (05:34→21:00)
[2021-10-08 06:00] VITALS: BP 158/76
[2021-10-08] MEDS: LEVEMIR (INSULIN DETEMIR) 1 UNITS/0.01ML SC SCH (08:06)
[2021-10-08] MEDS: HEPARIN SOD (PORCINE) 5000UNITS/ML 1ML VIAL/SYRINGE SC SCH ×3 (08:06→20:58)
[2021-10-08] MEDS: PARoxetine 20MG TABLET PO SCH (08:07)
[2021-10-08] MEDS: PANTOPRAZOLE 40MG TAB (PROTONIX) PO SCH (08:07)
[2021-10-08] MEDS: HumaLOG INSULIN (NovoLOG) PER UNIT SC SCH ×4 (08:07→20:58)
[2021-10-08] MEDS: ASPIRIN 81MG ENTERIC TABLET PO SCH (08:07)
[2021-10-08] MEDS: CLOPIDOGREL 75 MG TAB PO SCH (08:07)
[2021-10-08] MEDS: FENOFIBRATE 145MG TABLET (TRICOR) PO SCH (08:07)
[2021-10-08] MEDS: VITAMIN D 1,000 INTERNATIONAL UNITS TABLET PO SCH (08:07)
[2021-10-08] MEDS: CARVedilol 12.5 MG TAB PO SCH ×2 (08:08→20:57)
[2021-10-08] MEDS: REMEDY PHYTOPLEX Z-GUARD PASTE 113GM TUBE (FROM STOREROOM PRODUCT) TOP SCH ×3 (08:08→20:59)
[2021-10-08] MEDS ORDERED: hydrOXYzine 25 MG TAB PO ONE (12:15)
[2021-10-08 14:00] VITALS: BP 132/70
[2021-10-08 20:22] VITALS: BP 160/78
[2021-10-08] MEDS: ATORVASTATIN 20 MG TAB PO SCH (20:57)
[2021-10-08] MEDS: hydrOXYzine 25 MG TAB PO SCH (20:57)
[2021-10-08] MEDS: RAMELTEON 8 MG TAB (ROZEREM) PO SCH (20:57)
[2021-10-09 05:53] VITALS: BP 148/72
[2021-10-09] MEDS: ACETAMINOPHEN 500 MG TAB PO SCH ×3 (06:00→21:24)
[2021-10-09] MEDS: **hydrALAZINE** 50 MG TAB PO SCH ×4 (06:06→21:22)
[2021-10-09 06:24] LABS: BASO % 0.8 % (0.0-1.0); EOS # 0.1 10^3/uL (0.0-0.5); EOS % 2.3 % (0.0-3.0); HEMATOCRIT 25.4 % (42.0-52.0); HEMOGLOBIN 7.8 g/dl (13.5-17.5); LYMPH # 1.1 10^3/uL (1.5-5.0); LYMPH % 30.2 % (24.0-44.0); MEAN CORPUSCULAR HEMOGLOBIN 27.7 pg (27.0-33.0); MEAN CORPUSCULAR HGB CONC 30.7 g/dl (32.0-36.5); MEAN CORPUSCULAR VOLUME 90.1 fl (80.0-96.0); MONO # 0.2 10^3/uL (0.0-0.8); MONO % 5.9 % (2.0-8.0); NEUTROPHILS # 2.1 10^3/uL (1.5-8.5); NEUTROPHILS % 60.5 % (36.0-66.0); PLATELET COUNT, AUTOMATED 155 10^3/uL (150-450); RED BLOOD COUNT 2.82 10^6/uL (4.30-6.10); WHITE BLOOD COUNT 3.5 10^3/uL (4.0-10.0)
[2021-10-09 06:47] LABS: CREATININE FOR GFR 2.02 MG/DL (0.70-1.30); POTASSIUM SERUM 4.8 MEQ/L (3.5-5.1)
[2021-10-09] MEDS: FENOFIBRATE 145MG TABLET (TRICOR) PO SCH (08:42)
[2021-10-09] MEDS: ASPIRIN 81MG ENTERIC TABLET PO SCH (08:42)
[2021-10-09] MEDS: CLOPIDOGREL 75 MG TAB PO SCH (08:43)
[2021-10-09] MEDS: hydrOXYzine 25 MG TAB PO SCH ×3 (08:43→21:22)
[2021-10-09] MEDS: CARVedilol 12.5 MG TAB PO SCH ×2 (08:43→21:22)
[2021-10-09] MEDS: PANTOPRAZOLE 40MG TAB (PROTONIX) PO SCH (08:43)
[2021-10-09] MEDS: PARoxetine 20MG TABLET PO SCH (08:43)
[2021-10-09] MEDS: VITAMIN D 1,000 INTERNATIONAL UNITS TABLET PO SCH (08:43)
[2021-10-09] MEDS: HumaLOG INSULIN (NovoLOG) PER UNIT SC SCH ×4 (08:44→21:00)
[2021-10-09] MEDS: LEVEMIR (INSULIN DETEMIR) 1 UNITS/0.01ML SC SCH (08:45)
[2021-10-09] MEDS: HEPARIN SOD (PORCINE) 5000UNITS/ML 1ML VIAL/SYRINGE SC SCH ×2 (08:45→21:00)
[2021-10-09] MEDS: REMEDY PHYTOPLEX Z-GUARD PASTE 113GM TUBE (FROM STOREROOM PRODUCT) TOP SCH ×3 (08:47→21:00)
[2021-10-09 13:38] LABS: PERCENT SATURATION 17.4 % (19.7-50.0)
[2021-10-09 13:43] LABS: TOTAL 25(OH) VITAMIN D 28.4 NG/ML (30.0-100.0)
[2021-10-09 14:00] VITALS: BP 156/68
[2021-10-09 21:18] VITALS: BP 144/88
[2021-10-09] MEDS: ATORVASTATIN 20 MG TAB PO SCH (21:22)
[2021-10-09] MEDS: RAMELTEON 8 MG TAB (ROZEREM) PO SCH (21:22)
[2021-10-10] MEDS ORDERED: oxyCODONE 5MG TAB PO PRN (01:45)
[2021-10-10] MEDS: **hydrALAZINE** 50 MG TAB PO SCH ×4 (06:12→20:34)
[2021-10-10] MEDS: ACETAMINOPHEN 500 MG TAB PO SCH ×3 (06:12→20:35)
[2021-10-10 06:14] VITALS: BP 136/0
[2021-10-10 07:14] VITALS: BP 136/80
[2021-10-10] MEDS: REMEDY PHYTOPLEX Z-GUARD PASTE 113GM TUBE (FROM STOREROOM PRODUCT) TOP SCH ×3 (08:25→20:31)
[2021-10-10] MEDS: PARoxetine 20MG TABLET PO SCH (08:48)
[2021-10-10] MEDS: FENOFIBRATE 145MG TABLET (TRICOR) PO SCH (08:48)
[2021-10-10] MEDS: VITAMIN D 1,000 INTERNATIONAL UNITS TABLET PO SCH (08:48)
[2021-10-10] MEDS: PANTOPRAZOLE 40MG TAB (PROTONIX) PO SCH (08:48)
[2021-10-10] MEDS: CLOPIDOGREL 75 MG TAB PO SCH (08:48)
[2021-10-10] MEDS: HEPARIN SOD (PORCINE) 5000UNITS/ML 1ML VIAL/SYRINGE SC SCH ×2 (08:49→20:31)
[2021-10-10] MEDS: ASPIRIN 81MG ENTERIC TABLET PO SCH (08:49)
[2021-10-10] MEDS: CARVedilol 12.5 MG TAB PO SCH ×2 (08:49→20:31)
[2021-10-10] MEDS: hydrOXYzine 25 MG TAB PO SCH ×3 (08:49→20:30)
[2021-10-10] MEDS: HumaLOG INSULIN (NovoLOG) PER UNIT SC SCH ×4 (08:49→20:31)
[2021-10-10] MEDS: LEVEMIR (INSULIN DETEMIR) 1 UNITS/0.01ML SC SCH (08:50)
[2021-10-10] MEDS ORDERED: FUROSEMIDE 20 MG TAB PO SCH (09:00)
[2021-10-10] MEDS ORDERED: TORSEMIDE 20 MG TAB PO ONE (11:00)
[2021-10-10 12:56] VITALS: BP 148/72
[2021-10-10 14:00] VITALS: BP 141/70
[2021-10-10] MEDS: TORSEMIDE 20 MG TAB PO SCH (16:04)
[2021-10-10 18:04] VITALS: BP 162/77
[2021-10-10 20:00] VITALS: BP 140/60
[2021-10-10] MEDS: ATORVASTATIN 20 MG TAB PO SCH (20:30)
[2021-10-10] MEDS: RAMELTEON 8 MG TAB (ROZEREM) PO SCH (20:30)
[2021-10-10] MEDS: oxyCODONE 5MG TAB PO PRN (20:34)
[2021-10-11] MEDS: ACETAMINOPHEN 500 MG TAB PO SCH ×3 (06:00→20:49)
[2021-10-11] MEDS: **hydrALAZINE** 50 MG TAB PO SCH ×4 (06:49→20:48)
[2021-10-11 07:00] VITALS: BP 152/72
[2021-10-11] MEDS: HumaLOG INSULIN (NovoLOG) PER UNIT SC SCH ×4 (07:11→20:37)
[2021-10-11] MEDS: hydrOXYzine 25 MG TAB PO SCH ×3 (07:16→20:42)
[2021-10-11] MEDS: ASPIRIN 81MG ENTERIC TABLET PO SCH (07:16)
[2021-10-11] MEDS: LEVEMIR (INSULIN DETEMIR) 1 UNITS/0.01ML SC SCH (07:17)
[2021-10-11] MEDS: TORSEMIDE 20 MG TAB PO SCH ×3 (07:17→17:46)
[2021-10-11] MEDS: PANTOPRAZOLE 40MG TAB (PROTONIX) PO SCH (07:17)
[2021-10-11] MEDS: CARVedilol 12.5 MG TAB PO SCH ×2 (07:17→20:42)
[2021-10-11] MEDS: PARoxetine 20MG TABLET PO SCH (07:17)
[2021-10-11] MEDS: HEPARIN SOD (PORCINE) 5000UNITS/ML 1ML VIAL/SYRINGE SC SCH ×2 (07:17→20:50)
[2021-10-11] MEDS: VITAMIN D 1,000 INTERNATIONAL UNITS TABLET PO SCH (07:17)
[2021-10-11] MEDS: FENOFIBRATE 145MG TABLET (TRICOR) PO SCH (07:18)
[2021-10-11] MEDS: CLOPIDOGREL 75 MG TAB PO SCH (07:18)
[2021-10-11] MEDS: REMEDY PHYTOPLEX Z-GUARD PASTE 113GM TUBE (FROM STOREROOM PRODUCT) TOP SCH ×3 (07:18→20:49)
[2021-10-11 07:19] LABS: HEMATOCRIT 27.1 % (42.0-52.0); HEMOGLOBIN 8.3 g/dl (13.5-17.5); MEAN CORPUSCULAR HEMOGLOBIN 27.6 pg (27.0-33.0); MEAN CORPUSCULAR HGB CONC 30.6 g/dl (32.0-36.5); PLATELET COUNT, AUTOMATED 167 10^3/uL (150-450); RED BLOOD COUNT 3.01 10^6/uL (4.30-6.10); WHITE BLOOD COUNT 3.3 10^3/uL (4.0-10.0)
[2021-10-11 07:52] LABS: CALCIUM LEVEL 7.8 MG/DL (8.8-10.2); CREATININE FOR GFR 2.33 MG/DL (0.70-1.30); GLOMERULAR FILTRATION RATE 30.6 (>49); PHOSPHORUS LEVEL 5.5 MG/DL (2.5-4.9); POTASSIUM SERUM 5.4 MEQ/L (3.5-5.1)
[2021-10-11 12:10] VITALS: BP 145/82
[2021-10-11 14:00] VITALS: BP 140/60
[2021-10-11 20:09] VITALS: BP 147/67
[2021-10-11] MEDS: RAMELTEON 8 MG TAB (ROZEREM) PO SCH (20:42)
[2021-10-11] MEDS: ATORVASTATIN 20 MG TAB PO SCH (20:42)
[2021-10-11] MEDS: oxyCODONE 5MG TAB PO PRN (21:33)
[2021-10-12] MEDS: ACETAMINOPHEN 500 MG TAB PO SCH ×3 (05:38→21:24)
[2021-10-12] MEDS: **hydrALAZINE** 50 MG TAB PO SCH ×4 (05:39→21:25)
[2021-10-12 05:40] VITALS: BP 147/63
[2021-10-12 06:58] LABS: CALCIUM LEVEL 7.9 MG/DL (8.8-10.2); CREATININE FOR GFR 2.29 MG/DL (0.70-1.30); GLOMERULAR FILTRATION RATE 31.2 (>49); PHOSPHORUS LEVEL 4.9 MG/DL (2.5-4.9); POTASSIUM SERUM 4.8 MEQ/L (3.5-5.1)
[2021-10-12] MEDS: LEVEMIR (INSULIN DETEMIR) 1 UNITS/0.01ML SC SCH (08:30)
[2021-10-12] MEDS: HumaLOG INSULIN (NovoLOG) PER UNIT SC SCH ×4 (08:30→21:00)
[2021-10-12] MEDS: hydrOXYzine 25 MG TAB PO SCH (08:31)
[2021-10-12] MEDS: PARoxetine 20MG TABLET PO SCH (08:31)
[2021-10-12] MEDS: FENOFIBRATE 145MG TABLET (TRICOR) PO SCH (08:31)
[2021-10-12] MEDS: PANTOPRAZOLE 40MG TAB (PROTONIX) PO SCH (08:31)
[2021-10-12] MEDS: ASPIRIN 81MG ENTERIC TABLET PO SCH (08:31)
[2021-10-12] MEDS: VITAMIN D 1,000 INTERNATIONAL UNITS TABLET PO SCH (08:31)
[2021-10-12] MEDS: CLOPIDOGREL 75 MG TAB PO SCH (08:31)
[2021-10-12] MEDS: TORSEMIDE 20 MG TAB PO SCH ×2 (08:32→18:36)
[2021-10-12] MEDS: REMEDY PHYTOPLEX Z-GUARD PASTE 113GM TUBE (FROM STOREROOM PRODUCT) TOP SCH ×3 (08:32→21:00)
[2021-10-12] MEDS: HEPARIN SOD (PORCINE) 5000UNITS/ML 1ML VIAL/SYRINGE SC SCH ×2 (08:32→21:26)
[2021-10-12] MEDS: CARVedilol 12.5 MG TAB PO SCH ×2 (08:32→21:25)
[2021-10-12] MEDS ORDERED: CEFEPIME HCL 2 GM in D5W MINI-BAG PLUS 50 ML IV SCH (13:00)
[2021-10-12] MEDS: LACTOBACILLUS ACIDOPHILUS CAP (BACID) PO SCH ×3 (13:23→21:24)
[2021-10-12 14:00] VITALS: BP_SYST 148; BP_DIAS 52; BP_DIAS 82
[2021-10-12 20:15] VITALS: BP 157/74
[2021-10-12] MEDS: ATORVASTATIN 20 MG TAB PO SCH (21:24)
[2021-10-12] MEDS: RAMELTEON 8 MG TAB (ROZEREM) PO SCH (21:24)
[2021-10-13 06:02] VITALS: BP 168/82
[2021-10-13] MEDS: ACETAMINOPHEN 500 MG TAB PO SCH ×3 (06:05→21:51)
[2021-10-13] MEDS: **hydrALAZINE** 50 MG TAB PO SCH (06:06)
[2021-10-13] MEDS: CEFEPIME HCL 2 GM in D5W MINI-BAG PLUS 50 ML IV SCH ×2 (06:32→18:00)
[2021-10-13 07:00] LABS: ALBUMIN 2.2 GM/DL (3.2-5.2); CALCIUM LEVEL 8.5 MG/DL (8.8-10.2); CREATININE FOR GFR 2.25 MG/DL (0.70-1.30); GLOMERULAR FILTRATION RATE 31.8 (>49); PHOSPHORUS LEVEL 4.8 MG/DL (2.5-4.9)
[2021-10-13] MEDS: LEVEMIR (INSULIN DETEMIR) 1 UNITS/0.01ML SC SCH (08:56)
[2021-10-13] MEDS: HumaLOG INSULIN (NovoLOG) PER UNIT SC SCH ×4 (08:57→21:00)
[2021-10-13] MEDS: PANTOPRAZOLE 40MG TAB (PROTONIX) PO SCH (08:58)
[2021-10-13] MEDS: HEPARIN SOD (PORCINE) 5000UNITS/ML 1ML VIAL/SYRINGE SC SCH ×2 (08:58→21:40)
[2021-10-13] MEDS: FENOFIBRATE 145MG TABLET (TRICOR) PO SCH (08:59)
[2021-10-13] MEDS: ASPIRIN 81MG ENTERIC TABLET PO SCH (08:59)
[2021-10-13] MEDS: CLOPIDOGREL 75 MG TAB PO SCH (08:59)
[2021-10-13] MEDS: TORSEMIDE 20 MG TAB PO SCH ×2 (08:59→17:57)
[2021-10-13] MEDS: hydrOXYzine 10 MG TAB PO PRN (08:59)
[2021-10-13] MEDS: LACTOBACILLUS ACIDOPHILUS CAP (BACID) PO SCH ×4 (08:59→21:41)
[2021-10-13] MEDS: PARoxetine 20MG TABLET PO SCH (08:59)
[2021-10-13] MEDS: REMEDY PHYTOPLEX Z-GUARD PASTE 113GM TUBE (FROM STOREROOM PRODUCT) TOP SCH ×3 (09:00→21:00)
[2021-10-13] MEDS: VITAMIN D 1,000 INTERNATIONAL UNITS TABLET PO SCH (09:00)
[2021-10-13] MEDS: CARVedilol 12.5 MG TAB PO SCH ×2 (09:00→21:41)
[2021-10-13 14:00] VITALS: BP 148/80
[2021-10-13] MEDS: **hydrALAZINE HCL** 25 MG TAB PO SCH ×3 (14:25→21:42)
[2021-10-13] MEDS: FERROUS GLUCONATE 324 MG TAB PO SCH ×2 (14:26→21:41)
[2021-10-13 19:20] VITALS: BP 165/77
[2021-10-13] MEDS: ATORVASTATIN 20 MG TAB PO SCH (21:41)
[2021-10-13] MEDS: RAMELTEON 8 MG TAB (ROZEREM) PO SCH (21:41)
[2021-10-13] MEDS: oxyCODONE 5MG TAB PO PRN (21:51)
[2021-10-14] MEDS: hydrOXYzine 10 MG TAB PO PRN (01:33)
[2021-10-14 06:00] VITALS: BP 143/71
[2021-10-14] MEDS: ACETAMINOPHEN 500 MG TAB PO SCH ×3 (06:05→21:13)
[2021-10-14] MEDS: **hydrALAZINE HCL** 25 MG TAB PO SCH ×4 (06:06→21:12)
[2021-10-14] MEDS: CEFEPIME HCL 2 GM in D5W MINI-BAG PLUS 50 ML IV SCH (06:06)
[2021-10-14 07:33] LABS: BASO % 0.6 % (0.0-1.0); EOS # 0.1 10^3/uL (0.0-0.5); EOS % 3.1 % (0.0-3.0); HEMATOCRIT 26.7 % (42.0-52.0); HEMOGLOBIN 8.3 g/dl (13.5-17.5); LYMPH # 1.1 10^3/uL (1.5-5.0); LYMPH % 30.8 % (24.0-44.0); MEAN CORPUSCULAR HEMOGLOBIN 27.6 pg (27.0-33.0); MEAN CORPUSCULAR HGB CONC 31.1 g/dl (32.0-36.5); MEAN CORPUSCULAR VOLUME 88.7 fl (80.0-96.0); MONO # 0.3 10^3/uL (0.0-0.8); MONO % 7.6 % (2.0-8.0); NEUTROPHILS % 57.6 % (36.0-66.0); PLATELET COUNT, AUTOMATED 159 10^3/uL (150-450); RED BLOOD COUNT 3.01 10^6/uL (4.30-6.10); WHITE BLOOD COUNT 3.5 10^3/uL (4.0-10.0)
[2021-10-14 07:46] LABS: ALBUMIN 2.1 GM/DL (3.2-5.2); CALCIUM LEVEL 8.2 MG/DL (8.8-10.2); CREATININE FOR GFR 2.23 MG/DL (0.70-1.30); GLOMERULAR FILTRATION RATE 32.2 (>49); PHOSPHORUS LEVEL 4.3 MG/DL (2.5-4.9); POTASSIUM SERUM 4.6 MEQ/L (3.5-5.1)
[2021-10-14 08:22] VITALS: BP 143/70
[2021-10-14 08:31] VITALS: BP 143/70
[2021-10-14] MEDS: HEPARIN SOD (PORCINE) 5000UNITS/ML 1ML VIAL/SYRINGE SC SCH (09:00)
[2021-10-14] MEDS: HumaLOG INSULIN (NovoLOG) PER UNIT SC SCH ×4 (09:37→20:50)
[2021-10-14] MEDS: TORSEMIDE 20 MG TAB PO SCH ×2 (09:38→17:05)
[2021-10-14] MEDS: LEVEMIR (INSULIN DETEMIR) 1 UNITS/0.01ML SC SCH (09:38)
[2021-10-14] MEDS: FENOFIBRATE 145MG TABLET (TRICOR) PO SCH (09:39)
[2021-10-14] MEDS: ASPIRIN 81MG ENTERIC TABLET PO SCH (09:39)
[2021-10-14] MEDS: PARoxetine 20MG TABLET PO SCH (09:39)
[2021-10-14] MEDS: FERROUS GLUCONATE 324 MG TAB PO SCH ×2 (09:40→21:11)
[2021-10-14] MEDS: PANTOPRAZOLE 40MG TAB (PROTONIX) PO SCH (09:40)
[2021-10-14] MEDS: CLOPIDOGREL 75 MG TAB PO SCH (09:40)
[2021-10-14] MEDS: VITAMIN D 1,000 INTERNATIONAL UNITS TABLET PO SCH (09:40)
[2021-10-14] MEDS: CARVedilol 12.5 MG TAB PO SCH ×2 (09:40→21:12)
[2021-10-14] MEDS: REMEDY PHYTOPLEX Z-GUARD PASTE 113GM TUBE (FROM STOREROOM PRODUCT) TOP SCH ×3 (09:41→21:13)
[2021-10-14] MEDS: LACTOBACILLUS ACIDOPHILUS CAP (BACID) PO SCH ×4 (09:46→21:11)
[2021-10-14] MEDS: CEFDINIR 300 MG CAP (OMNICEF) PO SCH ×2 (12:47→21:11)
[2021-10-14] MEDS: oxyCODONE 5MG TAB PO PRN (15:08)
[2021-10-14 15:40] VITALS: BP 135/62
[2021-10-14 20:00] VITALS: BP 160/78
[2021-10-14] MEDS: RAMELTEON 8 MG TAB (ROZEREM) PO SCH (21:11)
[2021-10-14] MEDS: ATORVASTATIN 20 MG TAB PO SCH (21:11)
[2021-10-15] MEDS: ACETAMINOPHEN 500 MG TAB PO SCH ×3 (05:28→21:12)
[2021-10-15] MEDS: **hydrALAZINE HCL** 25 MG TAB PO SCH ×4 (05:28→21:12)
[2021-10-15 06:00] VITALS: BP 126/76
[2021-10-15 07:24] LABS: ALBUMIN 2.2 GM/DL (3.2-5.2); CALCIUM LEVEL 8.4 MG/DL (8.8-10.2); CREATININE FOR GFR 2.22 MG/DL (0.70-1.30); GLOMERULAR FILTRATION RATE 32.3 (>49); PHOSPHORUS LEVEL 4.4 MG/DL (2.5-4.9); POTASSIUM SERUM 4.3 MEQ/L (3.5-5.1)
[2021-10-15] MEDS: LACTOBACILLUS ACIDOPHILUS CAP (BACID) PO SCH ×4 (07:51→21:11)
[2021-10-15] MEDS: HumaLOG INSULIN (NovoLOG) PER UNIT SC SCH ×4 (07:52→19:55)
[2021-10-15] MEDS: ASPIRIN 81MG ENTERIC TABLET PO SCH (08:08)
[2021-10-15] MEDS: FENOFIBRATE 145MG TABLET (TRICOR) PO SCH (08:08)
[2021-10-15] MEDS: PANTOPRAZOLE 40MG TAB (PROTONIX) PO SCH (08:08)
[2021-10-15] MEDS: CARVedilol 12.5 MG TAB PO SCH ×2 (08:11→21:11)
[2021-10-15] MEDS: VITAMIN D 1,000 INTERNATIONAL UNITS TABLET PO SCH (08:12)
[2021-10-15] MEDS: TORSEMIDE 20 MG TAB PO SCH ×2 (08:12→17:12)
[2021-10-15] MEDS: CLOPIDOGREL 75 MG TAB PO SCH (08:12)
[2021-10-15] MEDS: CEFDINIR 300 MG CAP (OMNICEF) PO SCH ×2 (08:13→21:11)
[2021-10-15] MEDS: PARoxetine 20MG TABLET PO SCH (08:13)
[2021-10-15] MEDS: LEVEMIR (INSULIN DETEMIR) 1 UNITS/0.01ML SC SCH (08:14)
[2021-10-15 08:15] VITALS: BP 190/88
[2021-10-15] MEDS: FERROUS GLUCONATE 324 MG TAB PO SCH ×2 (08:16→21:11)
[2021-10-15] MEDS: REMEDY PHYTOPLEX Z-GUARD PASTE 113GM TUBE (FROM STOREROOM PRODUCT) TOP SCH ×3 (08:16→21:13)
[2021-10-15 14:00] VITALS: BP 160/85
[2021-10-15] MEDS ORDERED: LevoFLOXacin 750 MG TABLET PO SCH (18:00)
[2021-10-15 20:00] VITALS: BP 136/65
[2021-10-15] MEDS: RAMELTEON 8 MG TAB (ROZEREM) PO SCH (21:11)
[2021-10-15] MEDS: ATORVASTATIN 20 MG TAB PO SCH (21:12)
[2021-10-15] MEDS ORDERED: HYDR25TA PO (21:56)
[2021-10-15] MEDS ORDERED: INSUHUMDS SC ×2 (21:56)
[2021-10-15] MEDS ORDERED: OXYC-517 PO (21:56)
[2021-10-15] MEDS ORDERED: RAME8TAB2 PO (21:56)
[2021-10-15] MEDS ORDERED: CEFD300CAP PO (21:56)
[2021-10-15] MEDS ORDERED: ACET-683 PO (21:56)
[2021-10-15] MEDS ORDERED: FERR32TA PO (21:56)
[2021-10-15] MEDS ORDERED: HYDR-643 PO (21:56)
[2021-10-15] MEDS ORDERED: INSUDET SC (21:56)
[2021-10-15] MEDS ORDERED: RISATAB3 PO (21:56)
[2021-10-15] MEDS ORDERED: TORS20TA2 PO (21:56)
[2021-10-16] MEDS: **hydrALAZINE HCL** 25 MG TAB PO SCH ×4 (05:50→21:00)
[2021-10-16] MEDS: ACETAMINOPHEN 500 MG TAB PO SCH ×3 (05:50→22:34)
[2021-10-16 06:00] VITALS: BP 160/90
[2021-10-16 07:40] LABS: ALBUMIN 2.3 GM/DL (3.2-5.2); CALCIUM LEVEL 8.1 MG/DL (8.8-10.2); CREATININE FOR GFR 2.18 MG/DL (0.70-1.30); PHOSPHORUS LEVEL 4.1 MG/DL (2.5-4.9); POTASSIUM SERUM 4.1 MEQ/L (3.5-5.1)
[2021-10-16] MEDS: FERROUS GLUCONATE 324 MG TAB PO SCH ×2 (09:31→20:54)
[2021-10-16] MEDS: CEFDINIR 300 MG CAP (OMNICEF) PO SCH ×2 (09:31→20:53)
[2021-10-16] MEDS: CLOPIDOGREL 75 MG TAB PO SCH (09:31)
[2021-10-16] MEDS: ASPIRIN 81MG ENTERIC TABLET PO SCH (09:31)
[2021-10-16] MEDS: PANTOPRAZOLE 40MG TAB (PROTONIX) PO SCH (09:31)
[2021-10-16] MEDS: PARoxetine 20MG TABLET PO SCH (09:31)
[2021-10-16] MEDS: hydrOXYzine 10 MG TAB PO PRN ×2 (09:31→21:00)
[2021-10-16] MEDS: FENOFIBRATE 145MG TABLET (TRICOR) PO SCH (09:31)
[2021-10-16] MEDS: TORSEMIDE 20 MG TAB PO SCH ×2 (09:32→18:20)
[2021-10-16] MEDS: CARVedilol 12.5 MG TAB PO SCH ×2 (09:32→20:54)
[2021-10-16] MEDS: VITAMIN D 1,000 INTERNATIONAL UNITS TABLET PO SCH (09:32)
[2021-10-16] MEDS: LEVEMIR (INSULIN DETEMIR) 1 UNITS/0.01ML SC SCH (09:33)
[2021-10-16] MEDS: HumaLOG INSULIN (NovoLOG) PER UNIT SC SCH ×4 (09:33→20:54)
[2021-10-16] MEDS: REMEDY PHYTOPLEX Z-GUARD PASTE 113GM TUBE (FROM STOREROOM PRODUCT) TOP SCH ×3 (09:34→20:55)
[2021-10-16] MEDS: LACTOBACILLUS ACIDOPHILUS CAP (BACID) PO SCH ×4 (09:35→20:54)
[2021-10-16 13:51] VITALS: BP 160/85
[2021-10-16 14:21] VITALS: BP 160/85
[2021-10-16 19:40] VITALS: BP 132/68
[2021-10-16] MEDS: ATORVASTATIN 20 MG TAB PO SCH (20:53)
[2021-10-16] MEDS: RAMELTEON 8 MG TAB (ROZEREM) PO SCH (20:54)
[2021-10-17 05:25] VITALS: BP 130/82
[2021-10-17] MEDS: **hydrALAZINE HCL** 25 MG TAB PO SCH ×4 (06:03→21:58)
[2021-10-17] MEDS: ACETAMINOPHEN 500 MG TAB PO SCH ×3 (06:04→21:58)
[2021-10-17] MEDS: LEVEMIR (INSULIN DETEMIR) 1 UNITS/0.01ML SC SCH (08:47)
[2021-10-17] MEDS: FENOFIBRATE 145MG TABLET (TRICOR) PO SCH (08:48)
[2021-10-17] MEDS: CLOPIDOGREL 75 MG TAB PO SCH (08:48)
[2021-10-17] MEDS: VITAMIN D 1,000 INTERNATIONAL UNITS TABLET PO SCH (08:48)
[2021-10-17] MEDS: PARoxetine 20MG TABLET PO SCH (08:48)
[2021-10-17] MEDS: FERROUS GLUCONATE 324 MG TAB PO SCH ×2 (08:48→21:58)
[2021-10-17] MEDS: ASPIRIN 81MG ENTERIC TABLET PO SCH (08:48)
[2021-10-17] MEDS: LACTOBACILLUS ACIDOPHILUS CAP (BACID) PO SCH ×4 (08:48→21:59)
[2021-10-17] MEDS: PANTOPRAZOLE 40MG TAB (PROTONIX) PO SCH (08:48)
[2021-10-17] MEDS: HumaLOG INSULIN (NovoLOG) PER UNIT SC SCH ×4 (08:48→21:00)
[2021-10-17] MEDS: REMEDY PHYTOPLEX Z-GUARD PASTE 113GM TUBE (FROM STOREROOM PRODUCT) TOP SCH ×3 (08:49→22:00)
[2021-10-17] MEDS: TORSEMIDE 20 MG TAB PO SCH ×2 (08:49→17:38)
[2021-10-17] MEDS: CARVedilol 12.5 MG TAB PO SCH ×2 (08:49→21:59)
[2021-10-17 14:00] VITALS: BP 106/55
[2021-10-17 18:00] VITALS: BP 168/82
[2021-10-17 20:00] VITALS: BP 124/60
[2021-10-17] MEDS: RAMELTEON 8 MG TAB (ROZEREM) PO SCH (21:58)
[2021-10-17] MEDS: ATORVASTATIN 20 MG TAB PO SCH (21:59)
[2021-10-18 05:20] VITALS: BP 136/72
[2021-10-18] MEDS: **hydrALAZINE HCL** 25 MG TAB PO SCH ×4 (05:28→20:20)
[2021-10-18] MEDS: ACETAMINOPHEN 500 MG TAB PO SCH ×3 (05:28→20:18)
[2021-10-18] MEDS: LEVEMIR (INSULIN DETEMIR) 1 UNITS/0.01ML SC SCH (08:41)
[2021-10-18] MEDS: VITAMIN D 1,000 INTERNATIONAL UNITS TABLET PO SCH (08:42)
[2021-10-18] MEDS: LACTOBACILLUS ACIDOPHILUS CAP (BACID) PO SCH ×4 (08:42→20:17)
[2021-10-18] MEDS: TORSEMIDE 20 MG TAB PO SCH ×2 (08:42→17:45)
[2021-10-18] MEDS: CLOPIDOGREL 75 MG TAB PO SCH (08:42)
[2021-10-18] MEDS: FENOFIBRATE 145MG TABLET (TRICOR) PO SCH (08:42)
[2021-10-18] MEDS: FERROUS GLUCONATE 324 MG TAB PO SCH ×2 (08:42→20:17)
[2021-10-18] MEDS: HumaLOG INSULIN (NovoLOG) PER UNIT SC SCH ×4 (08:42→20:18)
[2021-10-18] MEDS: ASPIRIN 81MG ENTERIC TABLET PO SCH (08:42)
[2021-10-18] MEDS: PANTOPRAZOLE 40MG TAB (PROTONIX) PO SCH (08:42)
[2021-10-18] MEDS: PARoxetine 20MG TABLET PO SCH (08:42)
[2021-10-18] MEDS: CARVedilol 12.5 MG TAB PO SCH ×2 (08:43→20:18)
[2021-10-18] MEDS: REMEDY PHYTOPLEX Z-GUARD PASTE 113GM TUBE (FROM STOREROOM PRODUCT) TOP SCH ×3 (08:43→20:18)
[2021-10-18 14:00] VITALS: BP 122/58
[2021-10-18 15:30] VITALS: BP 115/56
[2021-10-18 20:00] VITALS: BP 142/66
[2021-10-18] MEDS: ATORVASTATIN 20 MG TAB PO SCH (20:17)
[2021-10-18] MEDS: RAMELTEON 8 MG TAB (ROZEREM) PO SCH (20:17)
[2021-10-18] MEDS: hydrOXYzine 10 MG TAB PO PRN (20:20)
[2021-10-19] MEDS: **hydrALAZINE HCL** 25 MG TAB PO SCH ×2 (05:17→12:37)
[2021-10-19] MEDS: ACETAMINOPHEN 500 MG TAB PO SCH (05:17)
[2021-10-19 06:00] VITALS: BP 146/82
[2021-10-19 06:25] LABS: CALCIUM LEVEL 8.2 MG/DL (8.8-10.2); CREATININE FOR GFR 2.29 MG/DL (0.70-1.30); GLOMERULAR FILTRATION RATE 31.2 (>49); MAGNESIUM LEVEL 1.6 MG/DL (1.8-2.4); POTASSIUM SERUM 3.9 MEQ/L (3.5-5.1)
[2021-10-19] MEDS ORDERED: MAG SULF 1GM/100ML (MAG RUN) 1 GM in IV 1 EA IV ONE (09:00)
[2021-10-19] MEDS: REMEDY PHYTOPLEX Z-GUARD PASTE 113GM TUBE (FROM STOREROOM PRODUCT) TOP SCH (09:00)
[2021-10-19] MEDS: LEVEMIR (INSULIN DETEMIR) 1 UNITS/0.01ML SC SCH (09:43)
[2021-10-19] MEDS: PANTOPRAZOLE 40MG TAB (PROTONIX) PO SCH (09:44)
[2021-10-19] MEDS: ASPIRIN 81MG ENTERIC TABLET PO SCH (09:44)
[2021-10-19] MEDS: FERROUS GLUCONATE 324 MG TAB PO SCH (09:44)
[2021-10-19] MEDS: FENOFIBRATE 145MG TABLET (TRICOR) PO SCH (09:44)
[2021-10-19] MEDS: PARoxetine 20MG TABLET PO SCH (09:44)
[2021-10-19] MEDS: CLOPIDOGREL 75 MG TAB PO SCH (09:47)
[2021-10-19] MEDS: VITAMIN D 1,000 INTERNATIONAL UNITS TABLET PO SCH (09:47)
[2021-10-19] MEDS: TORSEMIDE 20 MG TAB PO SCH (09:47)
[2021-10-19] MEDS: LACTOBACILLUS ACIDOPHILUS CAP (BACID) PO SCH ×2 (09:47→12:34)
[2021-10-19] MEDS: HumaLOG INSULIN (NovoLOG) PER UNIT SC SCH ×2 (09:47→12:35)
[2021-10-19] MEDS: CARVedilol 12.5 MG TAB PO SCH (09:49)
[2021-10-19 12:37] VITALS: BP 166/90
== END 2021-10-19 14:15 | DRG 862 ==
LOC: M PM&R 22:10
PROVIDERS: ADMIT Physical Medicine & Rehabilitation; ATTEND Physical Medicine & Rehabilitation
DX: Z47.81 Encounter for orthopedic aftercare following surgical amputation (principal); I50.32 Chronic diastolic (congestive) heart failure; I13.0 Hypertensive heart and chronic kidney disease with heart failure and stage 1 through stage 4 chronic kidney disease, or unspecified chronic kidney disease; E78.5 Hyperlipidemia, unspecified; Z74.09 Other reduced mobility; Z74.1 Need for assistance with personal care; R19.7 Diarrhea, unspecified; Z89.421 Acquired absence of other right toe(s); Z87.891 Personal history of nicotine dependence; E11.42 Type 2 diabetes mellitus with diabetic polyneuropathy; E11.51 Type 2 diabetes mellitus with diabetic peripheral angiopathy without gangrene; I73.9 Peripheral vascular disease, unspecified; D64.9 Anemia, unspecified; Z79.82 Long term (current) use of aspirin; Z79.4 Long term (current) use of insulin; Z79.899 Other long term (current) drug therapy; Z88.8 Allergy status to other drugs, medicaments and biological substances; N18.30 Chronic kidney disease, stage 3 unspecified; E11.22 Type 2 diabetes mellitus with diabetic chronic kidney disease; F41.9 Anxiety disorder, unspecified; K21.9 Gastro-esophageal reflux disease without esophagitis; F32.A Depression, unspecified; N17.9 Acute kidney failure, unspecified; N50.9 Disorder of male genital organs, unspecified; E87.5 Hyperkalemia; J90 Pleural effusion, not elsewhere classified; Z89.512 Acquired absence of left leg below knee

== ENCOUNTER → 2021-10-29 | Outpatient (REF) | payer BC ==
[~2021-10-29] MED LIST changes: +ACET-683 PO; +CEFD300CAP PO; +FERR32TA PO; +HYDR-643 PO; +HYDR25TA PO; +INSUHUMDS SC; +OXYC-517 PO; +RAME8TAB2 PO; +RISATAB3 PO; +TORS20TA2 PO
== END ==
LOC: SKLAB4 11:10
PROVIDERS: ATTEND Internal Medicine
DX: Z11.2 Encounter for screening for other bacterial diseases (principal); Z86.14 Personal history of Methicillin resistant Staphylococcus aureus infection

== ENCOUNTER → 2021-11-05 | Outpatient (CLI) | payer BC | LOC: SKLAB4 05:41 | PROVIDERS: ATTEND Internal Medicine | DX: Z86.14 Personal history of Methicillin resistant Staphylococcus aureus infection (principal) ==

== ENCOUNTER → 2021-12-04 | Outpatient (CLI) | payer BC | LOC: M RAD 11:27 | PROVIDERS: ATTEND Surgery | DX: E11.621 Type 2 diabetes mellitus with foot ulcer (principal); L97.512 Non-pressure chronic ulcer of other part of right foot with fat layer exposed; E11.51 Type 2 diabetes mellitus with diabetic peripheral angiopathy without gangrene; I70.235 Atherosclerosis of native arteries of right leg with ulceration of other part of foot ==

== ENCOUNTER 2022-01-28 13:55 | Outpatient (RCR) | payer BC | END 2022-02-14 | LOC: M PT 13:55 | PROVIDERS: ATTEND Surgery | DX: Z89.512 Acquired absence of left leg below knee (principal) ==

== ENCOUNTER → 2022-02-18 | Outpatient (REF) | payer BC ==
[2022-02-18 18:28] LABS: PERCENT SATURATION 10.6 % (19.7-50.0)
== END ==
LOC: M LAB REF 17:04
PROVIDERS: ATTEND Internal Medicine Nephrology
DX: E61.1 Iron deficiency (principal)

== ENCOUNTER 2022-02-26 13:06 | Outpatient (CLI) | payer BC ==
[~2022-02-26] VITALS: Ht 185.4 cm; Wt 79.3 kg
[~2022-02-26 13:06] MED LIST changes: +ALBUTEROL SULFATE 2.5 MG/0.5 ML INH NEB SOLN INH PRN; +EPINEPHrine INJ 1 MG/ML 1ML AMP IM PRN; +diphenhydrAMINE 50MG/ML VIAL (J1200) IV PRN; +methylPREDNISolone 125MG 2ML VIAL IV PRN
[2022-02-26 13:10] VITALS: BP 113/57
[2022-02-26] MEDS ORDERED: NS 1,000 ML IV SCH (13:30)
[2022-02-26] MEDS ORDERED: FERRIC CARBOXYMALTOSE INJ 750 MG in NS 250 ML (>50kg) IV ONE ×3 (13:30)
[2022-02-26 14:28] VITALS: BP 131/62
[2022-02-26 14:55] VITALS: BP 126/58
== END 2022-02-26 14:55 | disposition home or self-care (01) ==
LOC: M INFU 13:06
PROVIDERS: ATTEND Internal Medicine Nephrology
DX: E61.1 Iron deficiency (principal); Z88.1 Allergy status to other antibiotic agents; Z88.8 Allergy status to other drugs, medicaments and biological substances
CPT/HCPCS: 96365; J1439

== ENCOUNTER 2022-03-05 09:30 | Outpatient (CLI) | payer BC ==
[~2022-03-05] VITALS: Ht 154.9 cm; Wt 79.3 kg
[~2022-03-05 09:30] MED LIST changes: +FERRIC CARBOXYMALTOSE INJ 750 MG in NS 250 ML (>50kg) IV ONE; +NS 1,000 ML IV SCH
[2022-03-05 09:55] VITALS: BP 129/66
[2022-03-05 11:05] VITALS: BP 132/61
== END 2022-03-05 11:05 | disposition home or self-care (01) ==
LOC: M INFU 09:30
PROVIDERS: ATTEND Internal Medicine Nephrology
DX: E61.1 Iron deficiency (principal); Z88.8 Allergy status to other drugs, medicaments and biological substances; Z88.1 Allergy status to other antibiotic agents
CPT/HCPCS: 96365; J1439

== ENCOUNTER 2022-03-15 12:45 | Outpatient (RCR) | payer BC ==
[~2022-03-15 12:45] MED LIST changes: -ALBUTEROL SULFATE 2.5 MG/0.5 ML INH NEB SOLN INH PRN; -EPINEPHrine INJ 1 MG/ML 1ML AMP IM PRN; -FERRIC CARBOXYMALTOSE INJ 750 MG in NS 250 ML (>50kg) IV ONE; -NS 1,000 ML IV SCH; -diphenhydrAMINE 50MG/ML VIAL (J1200) IV PRN; -methylPREDNISolone 125MG 2ML VIAL IV PRN
== END 2022-03-17 ==
LOC: M PT 12:45
PROVIDERS: ATTEND Surgery
DX: Z89.512 Acquired absence of left leg below knee (principal)

== ENCOUNTER 2022-04-06 10:35 | Outpatient (RCR) | payer BC | END 2022-04-16 | LOC: M PT 10:35 | PROVIDERS: ATTEND Surgery | DX: Z89.512 Acquired absence of left leg below knee (principal) ==

== ENCOUNTER 2022-05-07 12:25 | Outpatient (RCR) | payer BC | END 2022-05-17 | LOC: M PT 12:25 | PROVIDERS: ATTEND Surgery | DX: Z89.512 Acquired absence of left leg below knee (principal) ==

== ENCOUNTER → 2022-05-18 | Outpatient (REF) | payer BC ==
[2022-05-18 19:41] LABS: PERCENT SATURATION 26.3 % (19.7-50.0)
== END ==
LOC: M LAB REF 17:18
PROVIDERS: ATTEND Internal Medicine Nephrology
DX: E61.1 Iron deficiency (principal); N18.4 Chronic kidney disease, stage 4 (severe); E55.9 Vitamin D deficiency, unspecified

== ENCOUNTER → 2022-07-06 | Outpatient (CLI) | payer BC ==
[~2022-07-06] MED LIST changes: +ALLO300T2 PO; +CALC1CAP31 PO; +CARV25TA PO; +FERR324T21 PO; +HYDR-3911 PO; +PATIENT COMMENT; +POTA1TAB23 PO; +ROZE8TAB16 PO; +TOUJ1.2I SQ
== END ==
LOC: M LAB 08:32
PROVIDERS: ATTEND Internal Medicine Nephrology
DX: N18.9 Chronic kidney disease, unspecified (principal); D63.1 Anemia in chronic kidney disease

== ENCOUNTER 2022-07-07 15:35 | Inpatient (IN) | payer BC ==
[~2022-07-07] VITALS: Ht 185.4 cm; Wt 97.1 kg
[~2022-07-07 15:35] MED LIST changes: -ACETAMINOPHEN TAB 650MG DOSE (2X325MG) PO SCH; -ALLO300T2 PO; -CALC1CAP31 PO; -CARV25TA PO; -FERR324T21 PO; -FURO80TA2 PO; -HYDR-3911 PO; -PATIENT COMMENT; -POTA1TAB23 PO; -ROZE8TAB16 PO; -SPIR50TA4 PO; -TOUJ1.2I SQ; -diphenhydrAMINE 25MG CAP PO SCH
[2022-07-07] MEDS ORDERED: POTA1TAB23 PO (15:48)
[2022-07-07] MEDS ORDERED: CARV25TA PO (15:48)
[2022-07-07] MEDS ORDERED: PANT40TA29 PO (15:48)
[2022-07-07] MEDS ORDERED: CALC1CAP31 PO (15:48)
[2022-07-07] MEDS ORDERED: TOUJ1.2I SQ (15:48)
[2022-07-07 17:09] LABS: BASO % 0.6 % (0.0-1.0); EOS # 0.1 10^3/uL (0.0-0.5); EOS % 1.5 % (0.0-3.0); HEMATOCRIT 24.7 % (42.0-52.0); LYMPH # 0.8 10^3/uL (1.5-5.0); LYMPH % 14.2 % (24.0-44.0); MEAN CORPUSCULAR HEMOGLOBIN 30.4 pg (27.0-33.0); MEAN CORPUSCULAR HGB CONC 32.4 g/dl (32.0-36.5); MEAN CORPUSCULAR VOLUME 93.9 fl (80.0-96.0); MONO # 0.3 10^3/uL (0.0-0.8); MONO % 6.4 % (2.0-8.0); NEUTROPHILS # 4.1 10^3/uL (1.5-8.5); NEUTROPHILS % 76.6 % (36.0-66.0); PLATELET COUNT, AUTOMATED 160 10^3/uL (150-450); RED BLOOD COUNT 2.63 10^6/uL (4.30-6.10); WHITE BLOOD COUNT 5.3 10^3/uL (4.0-10.0)
[2022-07-07] MEDS ORDERED: FUROSEMIDE 40MG/4ML VIAL IV ONE (17:10)
[2022-07-07 17:27] LABS: ALBUMIN 2.7 G/DL (3.2-5.2); BILIRUBIN,DIRECT 1.2 MG/DL (<0.4); BILIRUBIN,TOTAL 1.8 MG/DL (0.3-1.2); CALCIUM LEVEL 8.2 MG/DL (8.3-10.6); CREATININE FOR GFR 3.69 MG/DL (0.70-1.30); GLOMERULAR FILTRATION RATE 17.9 (>49); POTASSIUM SERUM 3.8 MMOL/L (3.5-5.1)
[2022-07-07 17:29] LABS: THYROID STIMULATING HORMONE 0.647 uIU/ML (0.55-4.78); THYROXINE (T4) 6.8 UG/DL (4.5-10.9)
[2022-07-07 17:31] LABS: RSV AMPLIFICATION NEGATIVE (NEGATIVE)
[2022-07-07] MEDS ORDERED: GLUCAGON INJ 1MG VIAL SC PRN (19:00)
[2022-07-07] MEDS ORDERED: DEXTROSE 50% 50ML SYRINGE IV PRN (19:00)
[2022-07-07] MEDS ORDERED: GLUCOSE 4GM CHEW TABLET PO PRN (19:00)
[2022-07-07] MEDS ORDERED: ACETAMINOPHEN TAB 650MG DOSE (2X325MG) PO PRN (19:00)
[2022-07-07] MEDS ORDERED: FERR324T21 PO (20:16)
[2022-07-07] MEDS ORDERED: ALLO300T2 PO (20:16)
[2022-07-07] MEDS ORDERED: TORS20TA2 PO (20:16)
[2022-07-07] MEDS ORDERED: HYDR-3911 PO (20:16)
[2022-07-07] MEDS ORDERED: ROZE8TAB16 PO (20:16)
[2022-07-07] MEDS ORDERED: PATIENT COMMENT (20:18)
[2022-07-07] MEDS ORDERED: HOME MED LIST COMPLETE! XX SCH (20:20)
[2022-07-07] MEDS: INSULIN LISPRO (NovoLOG) PER UNIT SC SCH (21:00)
[2022-07-07] MEDS: LEVEMIR (INSULIN DETEMIR) 1 UNITS/0.01ML SC SCH (21:00)
[2022-07-07 21:24] LABS: INR 1.32; PROTHROMBIN TIME 16.6 SECONDS (12.5-14.5)
[2022-07-07 21:25] LABS: PARTIAL THROMBOPLASTIN TIME 39.2 SECONDS (24.8-34.2)
[2022-07-07] MEDS: RAMELTEON 8 MG TAB (ROZEREM) PO PRN (23:13)
[2022-07-07] MEDS: ATORVASTATIN 20 MG TAB PO SCH (23:13)
[2022-07-07] MEDS: **hydrALAZINE** 50 MG TAB PO SCH (23:14)
[2022-07-07] MEDS: CARVedilol 12.5 MG TAB PO SCH (23:14)
[2022-07-08 01:04] VITALS: BP 127/60
[2022-07-08 04:15] VITALS: BP 117/58
[2022-07-08] MEDS: HEPARIN SOD (PORCINE) 5000UNITS/ML 1ML VIAL/SYRINGE SC SCH ×3 (05:52→21:06)
[2022-07-08 08:00] VITALS: BP 153/71
[2022-07-08] MEDS: INSULIN LISPRO (NovoLOG) PER UNIT SC SCH ×4 (09:00→20:57)
[2022-07-08] MEDS ORDERED: FUROSEMIDE 40MG/4ML VIAL IV SCH (09:00)
[2022-07-08] MEDS: FENOFIBRATE 145MG TABLET (TRICOR) PO SCH (09:00)
[2022-07-08] MEDS: CARVedilol 12.5 MG TAB PO SCH ×2 (09:01→21:06)
[2022-07-08] MEDS: **hydrALAZINE** 50 MG TAB PO SCH ×3 (09:01→21:06)
[2022-07-08] MEDS: ASPIRIN 81MG ENTERIC TABLET PO SCH (09:01)
[2022-07-08] MEDS: allopurinoL 300 MG TAB PO SCH (09:01)
[2022-07-08] MEDS: PARoxetine 20MG TABLET PO SCH (09:02)
[2022-07-08] MEDS: POTASSIUM CHLORIDE 10MEQ SR TABLET PO SCH (09:02)
[2022-07-08] MEDS: CLOPIDOGREL 75 MG TAB PO SCH (09:02)
[2022-07-08] MEDS: FERROUS GLUCONATE 324 MG TAB PO SCH (09:02)
[2022-07-08] MEDS: PANTOPRAZOLE 40MG TAB (PROTONIX) PO SCH (09:02)
[2022-07-08] MEDS: FUROSEMIDE 40MG/4ML VIAL IV SCH (09:03)
[2022-07-08 09:07] LABS: HEMATOCRIT 24.8 % (42.0-52.0); HEMOGLOBIN 7.8 g/dl (13.5-17.5); MEAN CORPUSCULAR HEMOGLOBIN 29.9 pg (27.0-33.0); MEAN CORPUSCULAR HGB CONC 31.5 g/dl (32.0-36.5); PLATELET COUNT, AUTOMATED 163 10^3/uL (150-450); RED BLOOD COUNT 2.61 10^6/uL (4.30-6.10); WHITE BLOOD COUNT 5.7 10^3/uL (4.0-10.0)
[2022-07-08 09:30] LABS: MAGNESIUM LEVEL 1.6 MG/DL (1.8-2.4)
[2022-07-08 09:32] LABS: CALCIUM LEVEL 8.3 MG/DL (8.3-10.6); CREATININE FOR GFR 3.61 MG/DL (0.70-1.30); GLOMERULAR FILTRATION RATE 18.4 (>49); POTASSIUM SERUM 3.4 MMOL/L (3.5-5.1)
[2022-07-08] MEDS ORDERED: POTASSIUM CHLORIDE 10MEQ SR TABLET PO ONE (09:50)
[2022-07-08] MEDS ORDERED: MAG SULF 1GM/100ML (MAG RUN) 1 GM in IV 1 EA IV ONE (10:00)
[2022-07-08] MEDS ORDERED: SPIRONOLACTONE 50 MG TAB PO ONE (10:50)
[2022-07-08 11:30] LABS: PERCENT SATURATION 7.3 % (19.7-50.0)
[2022-07-08 11:33] LABS: FERRITIN 387.1 NG/ML (10.5-307.3)
[2022-07-08 16:00] VITALS: BP 136/62
[2022-07-08 16:41] LABS: PERCENT SATURATION 7.3 % (19.7-50.0)
[2022-07-08 16:42] LABS: CALCIUM LEVEL 7.9 MG/DL (8.3-10.6); CREATININE FOR GFR 3.62 MG/DL (0.70-1.30); GLOMERULAR FILTRATION RATE 18.3 (>49); POTASSIUM SERUM 3.6 MMOL/L (3.5-5.1)
[2022-07-08 16:51] LABS: FERRITIN 358.5 NG/ML (10.5-307.3)
[2022-07-08 20:00] VITALS: BP 105/53
[2022-07-08] MEDS: LEVEMIR (INSULIN DETEMIR) 1 UNITS/0.01ML SC SCH (21:05)
[2022-07-08] MEDS: ATORVASTATIN 20 MG TAB PO SCH (21:06)
[2022-07-08] MEDS: RAMELTEON 8 MG TAB (ROZEREM) PO PRN (21:12)
[2022-07-09] VITALS (7 sets, daily range): BP systolic 123–144; BP diastolic 58–71
[2022-07-09] MEDS: HEPARIN SOD (PORCINE) 5000UNITS/ML 1ML VIAL/SYRINGE SC SCH ×2 (04:44→14:00)
[2022-07-09 05:15] LABS: HEMATOCRIT 23.4 % (42.0-52.0); HEMOGLOBIN 7.5 g/dl (13.5-17.5); MEAN CORPUSCULAR HEMOGLOBIN 30.2 pg (27.0-33.0); MEAN CORPUSCULAR HGB CONC 32.1 g/dl (32.0-36.5); MEAN CORPUSCULAR VOLUME 94.4 fl (80.0-96.0); PLATELET COUNT, AUTOMATED 165 10^3/uL (150-450); RED BLOOD COUNT 2.48 10^6/uL (4.30-6.10); WHITE BLOOD COUNT 5.5 10^3/uL (4.0-10.0)
[2022-07-09 05:29] LABS: MAGNESIUM LEVEL 1.8 MG/DL (1.8-2.4)
[2022-07-09 05:31] LABS: CREATININE FOR GFR 3.52 MG/DL (0.70-1.30); GLOMERULAR FILTRATION RATE 18.9 (>49); POTASSIUM SERUM 3.9 MMOL/L (3.5-5.1)
[2022-07-09] MEDS: INSULIN LISPRO (NovoLOG) PER UNIT SC SCH ×2 (08:16→12:27)
[2022-07-09] MEDS: PANTOPRAZOLE 40MG TAB (PROTONIX) PO SCH (08:18)
[2022-07-09] MEDS: POTASSIUM CHLORIDE 10MEQ SR TABLET PO SCH (08:18)
[2022-07-09] MEDS: PARoxetine 20MG TABLET PO SCH (08:18)
[2022-07-09] MEDS: FENOFIBRATE 145MG TABLET (TRICOR) PO SCH (08:19)
[2022-07-09] MEDS: FERROUS GLUCONATE 324 MG TAB PO SCH (08:19)
[2022-07-09] MEDS: ASPIRIN 81MG ENTERIC TABLET PO SCH (08:19)
[2022-07-09] MEDS: CARVedilol 12.5 MG TAB PO SCH (08:20)
[2022-07-09] MEDS: FUROSEMIDE 40MG/4ML VIAL IV SCH (08:20)
[2022-07-09] MEDS: allopurinoL 300 MG TAB PO SCH (08:20)
[2022-07-09] MEDS: CLOPIDOGREL 75 MG TAB PO SCH (08:21)
[2022-07-09] MEDS: **hydrALAZINE** 50 MG TAB PO SCH (08:21)
[2022-07-09] MEDS ORDERED: FERRIC CARBOXYMALTOSE INJ 750 MG, VIAL MATE ADAPTER 1 EACH in NS 250 ML IV ONE (09:00)
[2022-07-09] MEDS ORDERED: FUROSEMIDE 40MG/4ML VIAL IV ONE (09:10)
[2022-07-09] MEDS ORDERED: FURO80TA2 PO (11:39)
[2022-07-09] MEDS ORDERED: SPIR50TA4 PO (11:40)
[2022-07-09] MEDS ORDERED: FUROSEMIDE 20MG/2ML VIAL IV ONE (11:45)
== END 2022-07-09 15:50 | disposition home or self-care (01) | DRG 425 ==
LOC: M ED 15:35 → M ED INP 18:59 → ENRESERV 23:27 → M PCU 07-08 00:49
PROVIDERS: ADMIT Internal Medicine; ATTEND Internal Medicine
PROC: B246ZZZ Ultrasonography of Right and Left Heart (ICD-10-PCS; 2022-07-08)
PROC: 30233N1 Transfusion of Nonautologous Red Blood Cells into Peripheral Vein, Percutaneous Approach (ICD-10-PCS; principal; 2022-07-09)
DX: E87.71 Transfusion associated circulatory overload (principal); I50.33 Acute on chronic diastolic (congestive) heart failure; N17.9 Acute kidney failure, unspecified; E11.22 Type 2 diabetes mellitus with diabetic chronic kidney disease; E11.51 Type 2 diabetes mellitus with diabetic peripheral angiopathy without gangrene; N18.30 Chronic kidney disease, stage 3 unspecified; I13.0 Hypertensive heart and chronic kidney disease with heart failure and stage 1 through stage 4 chronic kidney disease, or unspecified chronic kidney disease; N04.9 Nephrotic syndrome with unspecified morphologic changes; E83.42 Hypomagnesemia; I73.9 Peripheral vascular disease, unspecified; D63.1 Anemia in chronic kidney disease; E78.5 Hyperlipidemia, unspecified; Z89.512 Acquired absence of left leg below knee; Z89.421 Acquired absence of other right toe(s); K21.9 Gastro-esophageal reflux disease without esophagitis; Z20.822 Contact with and (suspected) exposure to COVID-19; Z79.82 Long term (current) use of aspirin; Z79.4 Long term (current) use of insulin; Z79.899 Other long term (current) drug therapy; Z88.8 Allergy status to other drugs, medicaments and biological substances; D50.9 Iron deficiency anemia, unspecified; E87.6 Hypokalemia

== ENCOUNTER → 2022-07-07 | Outpatient (CLI) | payer BC ==
[2022-07-07] VITALS (7 sets, daily range): BP systolic 145–169; BP diastolic 72–91
[~2022-07-07] MED LIST changes: +ACETAMINOPHEN TAB 650MG DOSE (2X325MG) PO SCH; +FURO80TA2 PO; +SPIR50TA4 PO; +diphenhydrAMINE 25MG CAP PO SCH
== END ==
LOC: M INFU 07:30
PROVIDERS: ATTEND Internal Medicine Nephrology
DX: N18.9 Chronic kidney disease, unspecified (principal); D63.1 Anemia in chronic kidney disease; Z88.8 Allergy status to other drugs, medicaments and biological substances; Z91.013 Allergy to seafood
CPT/HCPCS: 36430; P9016

== ENCOUNTER → 2022-07-13 | Outpatient (REF) | payer BC ==
[~2022-07-13] MED LIST changes: +ALLO300T2 PO; +CALC1CAP31 PO; +CARV25TA PO; +FERR324T21 PO; +FURO80TA2 PO; +HYDR-3911 PO; +PATIENT COMMENT; +POTA1TAB23 PO; +ROZE8TAB16 PO; +SPIR50TA4 PO; +TOUJ1.2I SQ
[2022-07-13 17:53] LABS: BASO % 0.4 % (0.0-1.0); EOS % 0.8 % (0.0-3.0); HEMATOCRIT 26.3 % (42.0-52.0); HEMOGLOBIN 8.3 g/dl (13.5-17.5); LYMPH # 0.4 10^3/uL (1.5-5.0); LYMPH % 8.6 % (24.0-44.0); MEAN CORPUSCULAR HEMOGLOBIN 29.9 pg (27.0-33.0); MEAN CORPUSCULAR HGB CONC 31.6 g/dl (32.0-36.5); MEAN CORPUSCULAR VOLUME 94.6 fl (80.0-96.0); MONO # 0.3 10^3/uL (0.0-0.8); MONO % 5.7 % (2.0-8.0); NEUTROPHILS # 4.3 10^3/uL (1.5-8.5); NEUTROPHILS % 82.9 % (36.0-66.0); PLATELET COUNT, AUTOMATED 151 10^3/uL (150-450); RED BLOOD COUNT 2.78 10^6/uL (4.30-6.10); WHITE BLOOD COUNT 5.1 10^3/uL (4.0-10.0)
[2022-07-13 18:05] LABS: HEMOGLOBIN A1c 6.1 % (4.0-6.0)
[2022-07-13 18:24] LABS: ALBUMIN 2.4 G/DL (3.2-5.2); CALCIUM LEVEL 7.9 MG/DL (8.3-10.6); CHOLESTEROL RISK RATIO 6.15 (<5); CREATININE FOR GFR 3.79 MG/DL (0.70-1.30); GLOMERULAR FILTRATION RATE 17.4 (>49); HDL CHOLESTEROL 9.1 MG/DL (>40); LDL CHOLESTEROL 24.3 MG/DL (<100); POTASSIUM SERUM 3.8 MMOL/L (3.5-5.1); TOTAL PROTEIN 5.5 G/DL (5.7-8.2)
[2022-07-13 18:25] LABS: THYROID STIMULATING HORMONE 0.716 uIU/ML (0.55-4.78)
[2022-07-13 18:26] LABS: TOTAL 25(OH) VITAMIN D 26.2 NG/ML (20.0-100.0)
== END ==
LOC: M SFHCADAM 15:18
PROVIDERS: ATTEND Physician Assistant Medical
DX: I10 Essential (primary) hypertension (principal); K21.9 Gastro-esophageal reflux disease without esophagitis; E55.9 Vitamin D deficiency, unspecified; E11.621 Type 2 diabetes mellitus with foot ulcer; N18.32 Chronic kidney disease, stage 3b

== ENCOUNTER → 2022-08-11 | Outpatient (CLI) | payer BC | LOC: M RAD 09:35 | PROVIDERS: ATTEND Internal Medicine Gastroenterology | DX: K74.60 Unspecified cirrhosis of liver (principal) ==

== ENCOUNTER → 2022-08-18 | Outpatient (CLI) | payer BC | LOC: M RAD 08:39 | PROVIDERS: ATTEND Internal Medicine Pulmonary Disease | DX: Z12.2 Encounter for screening for malignant neoplasm of respiratory organs (principal); Z87.891 Personal history of nicotine dependence; R91.8 Other nonspecific abnormal finding of lung field ==

== ENCOUNTER → 2022-10-06 | Outpatient (REF) | payer BC ==
[2022-10-06 19:05] LABS: ALBUMIN 3.2 G/DL (3.2-5.2); BILIRUBIN,TOTAL 1.1 MG/DL (0.3-1.2); CALCIUM LEVEL 8.2 MG/DL (8.3-10.6); CREATININE FOR GFR 4.11 MG/DL (0.70-1.30); GLOMERULAR FILTRATION RATE 15.8 (>49); POTASSIUM SERUM 4.3 MMOL/L (3.5-5.1); TOTAL PROTEIN 6.4 G/DL (5.7-8.2)
== END ==
LOC: M LAB REF 17:53
PROVIDERS: ATTEND Internal Medicine Cardiovascular Disease
DX: I50.32 Chronic diastolic (congestive) heart failure (principal); I11.0 Hypertensive heart disease with heart failure; I27.21 Secondary pulmonary arterial hypertension

== ENCOUNTER → 2022-10-07 | Outpatient (CLI) | payer BC | LOC: M SLEEP HO 10:55 | PROVIDERS: ATTEND Internal Medicine Cardiovascular Disease | DX: I27.81 Cor pulmonale (chronic) (principal) ==

== ENCOUNTER → 2022-10-14 | Outpatient (CLI) | payer BC ==
[2022-10-14 14:55] LABS: ALBUMIN 3.4 G/DL (3.2-5.2); BILIRUBIN,TOTAL 0.8 MG/DL (0.3-1.2); CALCIUM LEVEL 8.6 MG/DL (8.3-10.6); CREATININE FOR GFR 3.93 MG/DL (0.70-1.30); GLOMERULAR FILTRATION RATE 16.7 (>49); POTASSIUM SERUM 4.4 MMOL/L (3.5-5.1); TOTAL PROTEIN 6.6 G/DL (5.7-8.2)
== END ==
LOC: M LAB 12:55
PROVIDERS: ATTEND Internal Medicine Cardiovascular Disease
DX: I50.32 Chronic diastolic (congestive) heart failure (principal); I11.0 Hypertensive heart disease with heart failure; I27.81 Cor pulmonale (chronic)

== ENCOUNTER 2022-11-07 12:10 | Emergency (ER) | payer BC ==
[~2022-11-07] VITALS: Ht 185.4 cm; Wt 90.5 kg
[2022-11-07] MEDS ORDERED: CIPR500T39 PO (12:59)
[2022-11-07] MEDS ORDERED: CIPROFLOXACIN 500MG TABLET PO ONE (13:00)
[2022-11-07 13:16] VITALS: BP 137/69
== END 2022-11-07 13:36 | disposition home or self-care (01) ==
LOC: M ED 12:10
DX: N39.0 Urinary tract infection, site not specified (principal); E11.9 Type 2 diabetes mellitus without complications; I10 Essential (primary) hypertension; E78.5 Hyperlipidemia, unspecified; K21.9 Gastro-esophageal reflux disease without esophagitis; I73.9 Peripheral vascular disease, unspecified; F41.1 Generalized anxiety disorder; Z88.8 Allergy status to other drugs, medicaments and biological substances; Z79.82 Long term (current) use of aspirin; Z79.899 Other long term (current) drug therapy; Z79.4 Long term (current) use of insulin

== ENCOUNTER 2022-11-21 00:18 | Inpatient (IN) | payer BC ==
[~2022-11-21] VITALS: Ht 185.4 cm; Wt 84.5 kg
[2022-11-21] VITALS (21 sets, daily range): BP systolic 107–160; BP diastolic 53–93; O2SAT 88–96
[~2022-11-21 00:18] MED LIST changes: +CIPR500T39 PO; +POTA-298 PO; -POTA1TAB14 PO
[2022-11-21 01:41] LABS: BASO % 0.3 % (0.0-1.0); EOS # 0.1 10^3/uL (0.0-0.5); EOS % 1.9 % (0.0-3.0); MEAN CORPUSCULAR HEMOGLOBIN 31.5 pg (27.0-33.0); MEAN CORPUSCULAR HGB CONC 32.4 g/dl (32.0-36.5); MEAN CORPUSCULAR VOLUME 97.2 fl (80.0-96.0); MONO # 0.4 10^3/uL (0.0-0.8); MONO % 5.5 % (2.0-8.0); NEUTROPHILS # 5.7 10^3/uL (1.5-8.5); NEUTROPHILS % 78.2 % (36.0-66.0); PLATELET COUNT, AUTOMATED 133 10^3/uL (150-450); RED BLOOD COUNT 2.13 10^6/uL (4.30-6.10); WHITE BLOOD COUNT 7.3 10^3/uL (4.0-10.0)
[2022-11-21 01:46] LABS: HEMATOCRIT 20.7 % (42.0-52.0); HEMOGLOBIN 6.7 g/dl (13.5-17.5)
[2022-11-21 02:01] LABS: ALBUMIN 3.2 G/DL (3.2-5.2); BILIRUBIN,DIRECT 0.7 MG/DL (<0.4); CALCIUM LEVEL 7.7 MG/DL (8.3-10.6); CK-MB VALUE MASS 3.6 NG/ML (<3.6); CREATININE FOR GFR 5.42 MG/DL (0.70-1.30); GLOMERULAR FILTRATION RATE 11.5 (>49); MB/CK RELATIVE INDEX 6.42 (< OR =4); POTASSIUM SERUM 3.9 MMOL/L (3.5-5.1); TOTAL PROTEIN 6.4 G/DL (5.7-8.2)
[2022-11-21 02:03] LABS: THYROID STIMULATING HORMONE 1.945 uIU/ML (0.55-4.78)
[2022-11-21 02:09] LABS: RSV AMPLIFICATION NEGATIVE (NEGATIVE)
[2022-11-21] MEDS ORDERED: cefTRIAXone SOD 1 GM in D5W MINI-BAG PLUS 50 ML IV ONE (04:00)
[2022-11-21] MEDS ORDERED: AMLO1TAB24 PO (04:49)
[2022-11-21] MEDS ORDERED: SEVE800T3 PO (04:49)
[2022-11-21] MEDS ORDERED: TORS20TA2 PO (04:49)
[2022-11-21] MEDS ORDERED: PROC20004 INJ (04:49)
[2022-11-21] MEDS ORDERED: HOME MED LIST COMPLETE! XX SCH (04:50)
[2022-11-21] MEDS ORDERED: ALBUTEROL SULFATE 2.5MG/0.5ML INH NEB SOLN NEB PRN (05:40)
[2022-11-21] MEDS ORDERED: DEXTROSE 50% 50ML SYRINGE IV PRN (05:40)
[2022-11-21] MEDS ORDERED: GLUCOSE 4GM CHEW TABLET PO PRN (05:40)
[2022-11-21] MEDS ORDERED: GLUCAGON INJ 1MG VIAL SC PRN (05:40)
[2022-11-21] MEDS ORDERED: PIPERACILLIN/TAZOBACTAM SOD 2.25 GM in D5W MINI-BAG PLUS 50 ML IV SCH ×2 (05:40→08:00)
[2022-11-21] MEDS ORDERED: FLUID PLACE HOLDER IV ONE (05:40)
[2022-11-21] MEDS ORDERED: ACETAMINOPHEN TAB 650MG DOSE (2X325MG) PO PRN (05:40)
[2022-11-21] MEDS ORDERED: VANCOMYCIN HCL IV ONE (05:40)
[2022-11-21 05:41] LABS: CK-MB VALUE MASS 3.1 NG/ML (<3.6); MB/CK RELATIVE INDEX 6.88 (< OR =4)
[2022-11-21] MEDS ORDERED: VANCOMYCIN INTERMITTENT/PULSE DOSING BY CLINICAL PHARMACIST PER DOSING PROTOCOL XX SCH (06:35)
[2022-11-21] MEDS: INSULIN LISPRO (NovoLOG) PER UNIT SC SCH ×4 (07:30→20:47)
[2022-11-21 08:06] LABS: PERCENT SATURATION 9.5 % (19.7-50.0)
[2022-11-21 08:09] LABS: FERRITIN 577.9 NG/ML (10.5-307.3)
[2022-11-21] MEDS: IPRATROPIUM 0.5MG/ALBUTEROL 2.5MG INH SOL UD 3ML (DUONEB) NEB SCH ×3 (08:25→19:53)
[2022-11-21] MEDS ORDERED: BUMETANIDE 1MG/4ML VIAL IV ONE (08:50)
[2022-11-21] MEDS ORDERED: VANCOMYCIN HCL 1,000 MG, VIAL MATE ADAPTER 1 EACH in NS 250 ML IV ONE ×2 (09:00→10:00)
[2022-11-21] MEDS: DOCUSATE SODIUM 100MG CAPSULE PO SCH ×2 (10:46→20:25)
[2022-11-21] MEDS: **hydrALAZINE** 50 MG TAB PO SCH ×3 (10:48→20:10)
[2022-11-21] MEDS: CARVedilol 12.5 MG TAB PO SCH ×2 (10:49→20:25)
[2022-11-21] MEDS: ASPIRIN 81MG ENTERIC TABLET PO SCH (10:50)
[2022-11-21] MEDS: amLODIPine 5 MG TAB PO SCH ×2 (10:51→20:25)
[2022-11-21] MEDS: CLOPIDOGREL 75 MG TAB PO SCH (10:52)
[2022-11-21] MEDS: PARoxetine 20MG TABLET PO SCH (10:52)
[2022-11-21] MEDS: PANTOPRAZOLE 40MG TAB (PROTONIX) PO SCH (10:53)
[2022-11-21] MEDS: allopurinoL 300 MG TAB PO SCH (10:53)
[2022-11-21] MEDS: FUROSEMIDE 100MG/10ML VIAL IV SCH ×2 (12:12→20:26)
[2022-11-21] MEDS: (RENVELA) SEVELAMER **CARBONate** 800 MG TAB PO SCH ×2 (13:37→17:11)
[2022-11-21] MEDS: SODIUM BICARBONATE 325 MG TAB PO SCH ×2 (13:37→20:25)
[2022-11-21] MEDS: HEPARIN SOD (PORCINE) 5000UNITS/ML 1ML VIAL/SYRINGE SC SCH ×2 (13:39→20:51)
[2022-11-21 14:23] LABS: HEMATOCRIT 26.6 % (42.0-52.0)
[2022-11-21 14:25] LABS: HEMOGLOBIN 8.9 g/dl (13.5-17.5)
[2022-11-21] MEDS ORDERED: CEFEPIME HCL 2 GM in D5W MINI-BAG PLUS 50 ML IV SCH (14:45)
[2022-11-21] MEDS: CEFEPIME HCL 1 GM in D5W MINI-BAG PLUS 50 ML IV SCH (16:34)
[2022-11-21 18:24] LABS: ABG BASE EXCESS -8.3 (-2.0-2.0); ABG HCO3 16.3 MMOL/L (22.0-26.0); ABG O2 SATURATION 90.3 % (95.0-99.0); ABG PARTIAL PRESSURE CO2 30.2 mmHg (35.0-45.0); ABG STANDARD HCO3 17.6 MMOL/L. (22.0-26.0); ABG TOTAL CO2 17.2 MMOL/L (23.0-31.0); ABG pH (ARTERIAL) 7.349 UNITS (7.350-7.450)
[2022-11-21] MEDS: ATORVASTATIN 20 MG TAB PO SCH (20:25)
[2022-11-21] MEDS: LEVEMIR (INSULIN DETEMIR) 1 UNITS/0.01ML SC SCH (20:50)
[2022-11-22] VITALS (12 sets, daily range): BP systolic 111–124; BP diastolic 53–60; O2SAT 90–98
[2022-11-22] MEDS: IPRATROPIUM 0.5MG/ALBUTEROL 2.5MG INH SOL UD 3ML (DUONEB) NEB SCH ×4 (01:29→19:20)
[2022-11-22] MEDS: CEFEPIME HCL 1 GM in D5W MINI-BAG PLUS 50 ML IV SCH ×2 (04:54→16:10)
[2022-11-22] MEDS: FUROSEMIDE 100MG/10ML VIAL IV SCH ×3 (04:54→21:01)
[2022-11-22] MEDS: HEPARIN SOD (PORCINE) 5000UNITS/ML 1ML VIAL/SYRINGE SC SCH ×3 (04:55→21:07)
[2022-11-22 06:13] LABS: HEMATOCRIT 25.4 % (42.0-52.0); HEMOGLOBIN 8.5 g/dl (13.5-17.5); MEAN CORPUSCULAR HGB CONC 33.5 g/dl (32.0-36.5); MEAN CORPUSCULAR VOLUME 95.5 fl (80.0-96.0); PLATELET COUNT, AUTOMATED 145 10^3/uL (150-450); RED BLOOD COUNT 2.66 10^6/uL (4.30-6.10); WHITE BLOOD COUNT 10.8 10^3/uL (4.0-10.0)
[2022-11-22 06:24] LABS: VENOUS BASE EXCESS -11.5 (-2.0-2.0); VENOUS HCO3 14.1 MMOL/L (23.0-27.0); VENOUS O2 SATURATION 96.8 % (60.0-80.0); VENOUS PARTIAL PRESSURE CO2 30.9 mmHg (38.0-50.0); VENOUS PARTIAL PRESSURE O2 98.2 mmHg (30.0-50.0); VENOUS PH 7.277 UNITS (7.330-7.430); VENOUS STANDARD HCO3 15.2 MMOL/L
[2022-11-22 06:42] LABS: BILIRUBIN,TOTAL 1.4 MG/DL (0.3-1.2); CALCIUM LEVEL 8.3 MG/DL (8.3-10.6); CREATININE FOR GFR 5.75 MG/DL (0.70-1.30); GLOMERULAR FILTRATION RATE 10.7 (>49); MAGNESIUM LEVEL 2.2 MG/DL (1.8-2.4); PHOSPHORUS LEVEL 6.2 MG/DL (2.4-5.1); POTASSIUM SERUM 3.7 MMOL/L (3.5-5.1); TOTAL PROTEIN 6.3 G/DL (5.7-8.2)
[2022-11-22 06:44] LABS: VANCOMYCIN RANDOM 16.4 UG/ML
[2022-11-22] MEDS: INSULIN LISPRO (NovoLOG) PER UNIT SC SCH ×4 (07:30→21:00)
[2022-11-22 07:34] LABS: HEPATITIS B SURFACE ANTIBODY NEGATIVE (POSITIVE)
[2022-11-22 07:47] LABS: HEPATITIS B SURFACE ANTIGEN NEGATIVE (NEGATIVE)
[2022-11-22] MEDS ORDERED: FERRIC CARBOXYMALTOSE INJ 750 MG, VIAL MATE ADAPTER 1 EACH in NS 250 ML IV ONE (08:00)
[2022-11-22 08:07] LABS: HEPATITIS B CORE ANTIBODY IGM NEGATIVE (NEGATIVE)
[2022-11-22] MEDS: SODIUM BICARBONATE 325 MG TAB PO SCH ×2 (08:28→21:02)
[2022-11-22] MEDS: CALCITRIOL 0.25 MCG CAP (S0169) PO SCH (08:28)
[2022-11-22] MEDS: (RENVELA) SEVELAMER **CARBONate** 800 MG TAB PO SCH ×3 (08:28→18:48)
[2022-11-22] MEDS: CLOPIDOGREL 75 MG TAB PO SCH (08:29)
[2022-11-22] MEDS: PANTOPRAZOLE 40MG TAB (PROTONIX) PO SCH (08:29)
[2022-11-22] MEDS: ASPIRIN 81MG ENTERIC TABLET PO SCH (08:29)
[2022-11-22] MEDS: CARVedilol 12.5 MG TAB PO SCH ×2 (08:29→21:00)
[2022-11-22] MEDS: amLODIPine 5 MG TAB PO SCH ×2 (08:29→21:00)
[2022-11-22] MEDS: PARoxetine 20MG TABLET PO SCH (08:29)
[2022-11-22] MEDS: DOCUSATE SODIUM 100MG CAPSULE PO SCH ×2 (08:30→21:03)
[2022-11-22] MEDS: **hydrALAZINE** 50 MG TAB PO SCH ×3 (08:30→21:00)
[2022-11-22] MEDS: allopurinoL 300 MG TAB PO SCH (08:30)
[2022-11-22] MEDS ORDERED: LIDOCAINE 1% MDV 20ML VIAL As Ordered ONE (08:46)
[2022-11-22] MEDS ORDERED: DARBEPOETIN 100MCG/0.5ML *NON-DIALYSIS* SYRINGE SC SCH (09:00)
[2022-11-22] MEDS ORDERED: SODIUM CHLORIDE 0.9% 1000ML IV PRN (09:25)
[2022-11-22] MEDS ORDERED: HEPARIN 1,000UNITS/ML 10ML VIAL (FOR RADIOLOGY & DIALYSIS ONLY) IV PRN (09:25)
[2022-11-22] MEDS ORDERED: HEPARIN 1,000UNITS/ML 10ML VIAL (FOR RADIOLOGY & DIALYSIS ONLY) XX SCH (09:25)
[2022-11-22] MEDS ORDERED: VANCOMYCIN HCL 750 MG, VIAL MATE ADAPTER 1 EACH in D5W 250 ML IV ONE (10:00)
[2022-11-22] MEDS: DARBEPOETIN 100MCG/0.5ML *DIALYSIS* SYRINGE SC SCH (10:54)
[2022-11-22] MEDS ORDERED: LIDOCAINE 1% MDV 20ML VIAL SC ONE (11:05)
[2022-11-22] MEDS: VANCOMYCIN HCL 1,000 MG, VIAL MATE ADAPTER 1 EACH in D5W 250 ML IV SCH (16:09)
[2022-11-22] MEDS ORDERED: ONDANSETRON 4MG 2ML VIAL IV PRN (19:40)
[2022-11-22] MEDS: LEVEMIR (INSULIN DETEMIR) 1 UNITS/0.01ML SC SCH (21:01)
[2022-11-22] MEDS: ATORVASTATIN 20 MG TAB PO SCH (21:03)
[2022-11-23] VITALS (54 sets, daily range): BP systolic 102–143; BP diastolic 57–70; O2SAT 84–98
[2022-11-23] MEDS: IPRATROPIUM 0.5MG/ALBUTEROL 2.5MG INH SOL UD 3ML (DUONEB) NEB SCH ×4 (02:09→20:31)
[2022-11-23] MEDS: FUROSEMIDE 100MG/10ML VIAL IV SCH (05:01)
[2022-11-23 06:28] LABS: BASO % 0.2 % (0.0-1.0); EOS % 0.3 % (0.0-3.0); HEMATOCRIT 24.8 % (42.0-52.0); HEMOGLOBIN 8.1 g/dl (13.5-17.5); LYMPH # 0.5 10^3/uL (1.5-5.0); LYMPH % 5.1 % (24.0-44.0); MEAN CORPUSCULAR HEMOGLOBIN 31.3 pg (27.0-33.0); MEAN CORPUSCULAR HGB CONC 32.7 g/dl (32.0-36.5); MEAN CORPUSCULAR VOLUME 95.8 fl (80.0-96.0); MONO # 0.5 10^3/uL (0.0-0.8); NEUTROPHILS # 8.9 10^3/uL (1.5-8.5); NEUTROPHILS % 88.5 % (36.0-66.0); PLATELET COUNT, AUTOMATED 148 10^3/uL (150-450); RED BLOOD COUNT 2.59 10^6/uL (4.30-6.10)
[2022-11-23] MEDS: HEPARIN SOD (PORCINE) 5000UNITS/ML 1ML VIAL/SYRINGE SC SCH ×3 (06:49→23:00)
[2022-11-23] MEDS: (RENVELA) SEVELAMER **CARBONate** 800 MG TAB PO SCH ×3 (06:49→18:00)
[2022-11-23] MEDS: SODIUM BICARBONATE 325 MG TAB PO SCH (06:49)
[2022-11-23] MEDS: PANTOPRAZOLE 40MG TAB (PROTONIX) PO SCH (06:50)
[2022-11-23] MEDS: allopurinoL 100 MG TAB PO SCH (06:50)
[2022-11-23] MEDS: DOCUSATE SODIUM 100MG CAPSULE PO SCH ×2 (06:50→20:47)
[2022-11-23] MEDS: amLODIPine 5 MG TAB PO SCH ×2 (06:51→20:47)
[2022-11-23] MEDS: ASPIRIN 81MG ENTERIC TABLET PO SCH (06:51)
[2022-11-23] MEDS: CLOPIDOGREL 75 MG TAB PO SCH (06:51)
[2022-11-23] MEDS: CARVedilol 12.5 MG TAB PO SCH ×2 (06:51→20:46)
[2022-11-23] MEDS: **hydrALAZINE** 50 MG TAB PO SCH ×3 (06:52→20:47)
[2022-11-23] MEDS: INSULIN LISPRO (NovoLOG) PER UNIT SC SCH ×4 (06:52→20:53)
[2022-11-23 06:56] LABS: ALBUMIN 2.7 G/DL (3.2-5.2); BILIRUBIN,TOTAL 1.7 MG/DL (0.3-1.2); CALCIUM LEVEL 8.6 MG/DL (8.3-10.6); CREATININE FOR GFR 4.56 MG/DL (0.70-1.30); POTASSIUM SERUM 3.8 MMOL/L (3.5-5.1)
[2022-11-23] MEDS: PARoxetine 20MG TABLET PO SCH (06:57)
[2022-11-23] MEDS ORDERED: SODIUM CHLORIDE 0.9% 1000ML IV PRN (07:45)
[2022-11-23] MEDS ORDERED: HEPARIN 1,000UNITS/ML 10ML VIAL (FOR RADIOLOGY & DIALYSIS ONLY) XX SCH (07:45)
[2022-11-23] MEDS ORDERED: HEPARIN 1,000UNITS/ML 10ML VIAL (FOR RADIOLOGY & DIALYSIS ONLY) IV PRN (07:45)
[2022-11-23] MEDS ORDERED: FUROSEMIDE 100MG/10ML VIAL IV ONE (10:35)
[2022-11-23] MEDS: VANCOMYCIN HCL 1,000 MG, VIAL MATE ADAPTER 1 EACH in D5W 250 ML IV SCH ×2 (17:53→19:04)
[2022-11-23] MEDS: ATORVASTATIN 20 MG TAB PO SCH (20:47)
[2022-11-23] MEDS: CEFEPIME HCL 1 GM in D5W MINI-BAG PLUS 50 ML IV SCH (20:48)
[2022-11-23] MEDS: LEVEMIR (INSULIN DETEMIR) 1 UNITS/0.01ML SC SCH (20:53)
[2022-11-24] VITALS (21 sets, daily range): BP systolic 107–134; BP diastolic 53–74; O2SAT 88–99
[2022-11-24] MEDS: IPRATROPIUM 0.5MG/ALBUTEROL 2.5MG INH SOL UD 3ML (DUONEB) NEB SCH ×4 (02:00→19:51)
[2022-11-24] MEDS: INSULIN LISPRO (NovoLOG) PER UNIT SC SCH ×4 (06:43→20:11)
[2022-11-24 06:50] LABS: VANCOMYCIN RANDOM 23.9 UG/ML
[2022-11-24] MEDS: PANTOPRAZOLE 40MG TAB (PROTONIX) PO SCH (06:52)
[2022-11-24] MEDS: HEPARIN SOD (PORCINE) 5000UNITS/ML 1ML VIAL/SYRINGE SC SCH ×2 (06:52→14:26)
[2022-11-24] MEDS: CALCITRIOL 0.25 MCG CAP (S0169) PO SCH (06:53)
[2022-11-24] MEDS: CLOPIDOGREL 75 MG TAB PO SCH ×2 (06:53→14:25)
[2022-11-24] MEDS: allopurinoL 100 MG TAB PO SCH (06:53)
[2022-11-24] MEDS: DOCUSATE SODIUM 100MG CAPSULE PO SCH (06:53)
[2022-11-24] MEDS: (RENVELA) SEVELAMER **CARBONate** 800 MG TAB PO SCH ×3 (06:53→18:17)
[2022-11-24 07:32] LABS: BASO % 0.2 % (0.0-1.0); EOS # 0.1 10^3/uL (0.0-0.5); EOS % 0.7 % (0.0-3.0); HEMATOCRIT 24.9 % (42.0-52.0); HEMOGLOBIN 8.2 g/dl (13.5-17.5); LYMPH # 0.7 10^3/uL (1.5-5.0); LYMPH % 7.3 % (24.0-44.0); MEAN CORPUSCULAR HEMOGLOBIN 31.9 pg (27.0-33.0); MEAN CORPUSCULAR HGB CONC 32.9 g/dl (32.0-36.5); MEAN CORPUSCULAR VOLUME 96.9 fl (80.0-96.0); MONO # 0.6 10^3/uL (0.0-0.8); MONO % 5.4 % (2.0-8.0); NEUTROPHILS # 8.6 10^3/uL (1.5-8.5); NEUTROPHILS % 85.2 % (36.0-66.0); PLATELET COUNT, AUTOMATED 178 10^3/uL (150-450); RED BLOOD COUNT 2.57 10^6/uL (4.30-6.10); WHITE BLOOD COUNT 10.1 10^3/uL (4.0-10.0)
[2022-11-24 07:43] LABS: ALBUMIN 2.5 G/DL (3.2-5.2); CALCIUM LEVEL 8.4 MG/DL (8.3-10.6); CREATININE FOR GFR 3.65 MG/DL (0.70-1.30); GLOMERULAR FILTRATION RATE 18.2 (>49); PHOSPHORUS LEVEL 3.9 MG/DL (2.4-5.1); POTASSIUM SERUM 3.6 MMOL/L (3.5-5.1)
[2022-11-24] MEDS ORDERED: HEPARIN 1,000UNITS/ML 10ML VIAL (FOR RADIOLOGY & DIALYSIS ONLY) IV PRN (07:45)
[2022-11-24] MEDS ORDERED: SODIUM CHLORIDE 0.9% 1000ML IV PRN (07:45)
[2022-11-24] MEDS ORDERED: HEPARIN 1,000UNITS/ML 10ML VIAL (FOR RADIOLOGY & DIALYSIS ONLY) XX SCH (07:45)
[2022-11-24] MEDS: CARVedilol 12.5 MG TAB PO SCH ×2 (10:51→20:59)
[2022-11-24] MEDS: **hydrALAZINE** 50 MG TAB PO SCH ×3 (10:51→20:59)
[2022-11-24] MEDS: amLODIPine 5 MG TAB PO SCH ×2 (10:51→20:58)
[2022-11-24] MEDS ORDERED: ISOVUE-370 76% 100ML VIAL As Ordered ONE (11:34)
[2022-11-24 14:09] LABS: BODY FLUID CULTURE Not indicated. (.); LEGIONELLA ANTIGEN URINE Negative (Negative); ORGANISM ID Not indicated. (.); SPECIMEN SOURCE Urine (.); URINE STREP PNEUMONIAE ANTIGEN Negative (Negative)
[2022-11-24] MEDS: ASPIRIN 81MG ENTERIC TABLET PO SCH (14:23)
[2022-11-24] MEDS: PARoxetine 20MG TABLET PO SCH (14:24)
[2022-11-24] MEDS: CEFEPIME HCL 1 GM in D5W MINI-BAG PLUS 50 ML IV SCH (16:45)
[2022-11-24 17:44] LABS: INR 1.26; PROTHROMBIN TIME 16.1 SECONDS (12.5-14.5)
[2022-11-24 17:45] LABS: PARTIAL THROMBOPLASTIN TIME 49.3 SECONDS (24.8-34.2)
[2022-11-24] MEDS: APIXABAN 5 MG TAB (ELIQUIS) PO SCH (20:59)
[2022-11-24] MEDS: ATORVASTATIN 20 MG TAB PO SCH (20:59)
[2022-11-24] MEDS ORDERED: APIXABAN 5 MG TAB (ELIQUIS) PO SCH (21:00)
[2022-11-24] MEDS: LEVEMIR (INSULIN DETEMIR) 1 UNITS/0.01ML SC SCH (21:00)
[2022-11-25] VITALS (20 sets, daily range): BP systolic 104–143; BP diastolic 56–72; O2SAT 90–100
[2022-11-25] MEDS: IPRATROPIUM 0.5MG/ALBUTEROL 2.5MG INH SOL UD 3ML (DUONEB) NEB SCH ×4 (02:00→20:37)
[2022-11-25 05:38] LABS: BASO % 0.3 % (0.0-1.0); EOS # 0.2 10^3/uL (0.0-0.5); EOS % 2.5 % (0.0-3.0); HEMATOCRIT 28.4 % (42.0-52.0); HEMOGLOBIN 8.9 g/dl (13.5-17.5); LYMPH % 10.3 % (24.0-44.0); MEAN CORPUSCULAR HEMOGLOBIN 30.8 pg (27.0-33.0); MEAN CORPUSCULAR HGB CONC 31.3 g/dl (32.0-36.5); MEAN CORPUSCULAR VOLUME 98.3 fl (80.0-96.0); MONO # 0.5 10^3/uL (0.0-0.8); MONO % 4.8 % (2.0-8.0); NEUTROPHILS # 7.6 10^3/uL (1.5-8.5); NEUTROPHILS % 81.2 % (36.0-66.0); PLATELET COUNT, AUTOMATED 169 10^3/uL (150-450); RED BLOOD COUNT 2.89 10^6/uL (4.30-6.10); WHITE BLOOD COUNT 9.3 10^3/uL (4.0-10.0)
[2022-11-25 06:11] LABS: VANCOMYCIN RANDOM 16.9 UG/ML
[2022-11-25 06:12] LABS: ALBUMIN 2.3 G/DL (3.2-5.2); CALCIUM LEVEL 8.1 MG/DL (8.3-10.6); CREATININE FOR GFR 3.7 MG/DL (0.70-1.30); GLOMERULAR FILTRATION RATE 17.9 (>49); PHOSPHORUS LEVEL 3.3 MG/DL (2.4-5.1); POTASSIUM SERUM 3.8 MMOL/L (3.5-5.1)
[2022-11-25] MEDS ORDERED: HEPARIN 1,000UNITS/ML 10ML VIAL (FOR RADIOLOGY & DIALYSIS ONLY) IV PRN (07:15)
[2022-11-25] MEDS ORDERED: SODIUM CHLORIDE 0.9% 1000ML IV PRN (07:15)
[2022-11-25] MEDS ORDERED: HEPARIN 1,000UNITS/ML 10ML VIAL (FOR RADIOLOGY & DIALYSIS ONLY) XX SCH (07:15)
[2022-11-25] MEDS: (RENVELA) SEVELAMER **CARBONate** 800 MG TAB PO SCH ×3 (07:49→18:26)
[2022-11-25] MEDS: INSULIN LISPRO (NovoLOG) PER UNIT SC SCH ×4 (07:50→20:25)
[2022-11-25] MEDS: PANTOPRAZOLE 40MG TAB (PROTONIX) PO SCH (08:56)
[2022-11-25] MEDS: APIXABAN 5 MG TAB (ELIQUIS) PO SCH (08:56)
[2022-11-25] MEDS: allopurinoL 100 MG TAB PO SCH (08:56)
[2022-11-25] MEDS: PARoxetine 20MG TABLET PO SCH (08:57)
[2022-11-25] MEDS: **hydrALAZINE** 50 MG TAB PO SCH ×3 (09:00→20:53)
[2022-11-25] MEDS: CARVedilol 12.5 MG TAB PO SCH ×2 (14:58→20:54)
[2022-11-25] MEDS: amLODIPine 5 MG TAB PO SCH ×2 (14:58→20:54)
[2022-11-25] MEDS: CEFEPIME HCL 1 GM in D5W MINI-BAG PLUS 50 ML IV SCH (16:58)
[2022-11-25] MEDS ORDERED: CLOPIDOGREL 75 MG TAB PO ONE (17:05)
[2022-11-25] MEDS: LEVEMIR (INSULIN DETEMIR) 1 UNITS/0.01ML SC SCH (20:44)
[2022-11-25] MEDS: DOXYCYCLINE HYCLATE 100MG TABLET PO SCH (20:44)
[2022-11-25] MEDS: ATORVASTATIN 20 MG TAB PO SCH (20:45)
[2022-11-26] VITALS (20 sets, daily range): BP systolic 115–157; BP diastolic 59–78; O2SAT 91–98
[2022-11-26] MEDS: IPRATROPIUM 0.5MG/ALBUTEROL 2.5MG INH SOL UD 3ML (DUONEB) NEB SCH ×4 (01:59→19:20)
[2022-11-26 05:49] LABS: BASO % 0.5 % (0.0-1.0); EOS # 0.3 10^3/uL (0.0-0.5); EOS % 4.5 % (0.0-3.0); HEMATOCRIT 27.8 % (42.0-52.0); HEMOGLOBIN 9.1 g/dl (13.5-17.5); LYMPH # 1.3 10^3/uL (1.5-5.0); LYMPH % 16.4 % (24.0-44.0); MEAN CORPUSCULAR HEMOGLOBIN 31.8 pg (27.0-33.0); MEAN CORPUSCULAR HGB CONC 32.7 g/dl (32.0-36.5); MEAN CORPUSCULAR VOLUME 97.2 fl (80.0-96.0); MONO # 0.6 10^3/uL (0.0-0.8); MONO % 7.5 % (2.0-8.0); NEUTROPHILS # 5.3 10^3/uL (1.5-8.5); NEUTROPHILS % 69.5 % (36.0-66.0); PLATELET COUNT, AUTOMATED 171 10^3/uL (150-450); RED BLOOD COUNT 2.86 10^6/uL (4.30-6.10); WHITE BLOOD COUNT 7.6 10^3/uL (4.0-10.0)
[2022-11-26 06:20] LABS: ALBUMIN 2.6 G/DL (3.2-5.2); CALCIUM LEVEL 7.6 MG/DL (8.3-10.6); CREATININE FOR GFR 3.82 MG/DL (0.70-1.30); GLOMERULAR FILTRATION RATE 17.2 (>49); POTASSIUM SERUM 3.8 MMOL/L (3.5-5.1)
[2022-11-26] MEDS: (RENVELA) SEVELAMER **CARBONate** 800 MG TAB PO SCH ×3 (07:30→17:19)
[2022-11-26] MEDS: INSULIN LISPRO (NovoLOG) PER UNIT SC SCH ×4 (07:30→20:43)
[2022-11-26] MEDS ORDERED: HEPARIN 1,000UNITS/ML 10ML VIAL (FOR RADIOLOGY & DIALYSIS ONLY) As Ordered ONE (08:11)
[2022-11-26] MEDS ORDERED: MIDAZOLAM INJ 2MG/2ML VIAL As Ordered ONE (08:11)
[2022-11-26] MEDS ORDERED: fentaNYL 100 MCG/2 ML INJECTION As Ordered ONE (08:11)
[2022-11-26] MEDS ORDERED: LIDOCAINE 1% MDV 20ML VIAL As Ordered ONE (08:11)
[2022-11-26] MEDS ORDERED: LIDOCAINE W/EPINEPHRINE 1% 20ML VIAL As Ordered ONE (08:42)
[2022-11-26] MEDS ORDERED: hydrALAZINE 20MG/ML 1ML VIAL As Ordered ONE (09:51)
[2022-11-26] MEDS: CALCITRIOL 0.25 MCG CAP (S0169) PO SCH (11:06)
[2022-11-26] MEDS: DOXYCYCLINE HYCLATE 100MG TABLET PO SCH ×2 (11:06→20:38)
[2022-11-26] MEDS: LACTOBACILLUS ACIDOPHILUS CAP (BACID) PO SCH (11:06)
[2022-11-26] MEDS: PARoxetine 20MG TABLET PO SCH (11:07)
[2022-11-26] MEDS: allopurinoL 100 MG TAB PO SCH (11:07)
[2022-11-26] MEDS: CLOPIDOGREL 75 MG TAB PO SCH (11:07)
[2022-11-26] MEDS: CARVedilol 12.5 MG TAB PO SCH ×2 (11:07→20:39)
[2022-11-26] MEDS: amLODIPine 5 MG TAB PO SCH ×2 (11:07→20:38)
[2022-11-26] MEDS: **hydrALAZINE** 50 MG TAB PO SCH ×3 (11:07→20:39)
[2022-11-26] MEDS: PANTOPRAZOLE 40MG TAB (PROTONIX) PO SCH (11:08)
[2022-11-26] MEDS: CEFEPIME HCL 1 GM in D5W MINI-BAG PLUS 50 ML IV SCH (16:40)
[2022-11-26] MEDS: ATORVASTATIN 20 MG TAB PO SCH (20:39)
[2022-11-26] MEDS: LEVEMIR (INSULIN DETEMIR) 1 UNITS/0.01ML SC SCH (20:40)
[2022-11-27] MEDS: IPRATROPIUM 0.5MG/ALBUTEROL 2.5MG INH SOL UD 3ML (DUONEB) NEB SCH ×4 (02:00→20:00)
[2022-11-27 06:25] VITALS: BP 133/67
[2022-11-27 06:45] LABS: BASO % 0.5 % (0.0-1.0); EOS # 0.4 10^3/uL (0.0-0.5); HEMATOCRIT 29.8 % (42.0-52.0); HEMOGLOBIN 9.4 g/dl (13.5-17.5); LYMPH # 1.5 10^3/uL (1.5-5.0); LYMPH % 16.9 % (24.0-44.0); MEAN CORPUSCULAR HEMOGLOBIN 30.7 pg (27.0-33.0); MEAN CORPUSCULAR HGB CONC 31.5 g/dl (32.0-36.5); MEAN CORPUSCULAR VOLUME 97.4 fl (80.0-96.0); MONO # 0.5 10^3/uL (0.0-0.8); MONO % 6.1 % (2.0-8.0); NEUTROPHILS # 5.9 10^3/uL (1.5-8.5); NEUTROPHILS % 68.7 % (36.0-66.0); PLATELET COUNT, AUTOMATED 158 10^3/uL (150-450); RED BLOOD COUNT 3.06 10^6/uL (4.30-6.10); WHITE BLOOD COUNT 8.6 10^3/uL (4.0-10.0)
[2022-11-27 07:30] LABS: ALBUMIN 2.6 G/DL (3.2-5.2); CALCIUM LEVEL 8.2 MG/DL (8.3-10.6); CREATININE FOR GFR 4.43 MG/DL (0.70-1.30); GLOMERULAR FILTRATION RATE 14.5 (>49); PHOSPHORUS LEVEL 3.7 MG/DL (2.4-5.1); POTASSIUM SERUM 3.9 MMOL/L (3.5-5.1)
[2022-11-27] MEDS ORDERED: SODIUM CHLORIDE 0.9% 1000ML IV PRN (07:30)
[2022-11-27] MEDS ORDERED: HEPARIN 1,000UNITS/ML 10ML VIAL (FOR RADIOLOGY & DIALYSIS ONLY) XX SCH (07:30)
[2022-11-27] MEDS ORDERED: HEPARIN 1,000UNITS/ML 10ML VIAL (FOR RADIOLOGY & DIALYSIS ONLY) IV PRN (07:30)
[2022-11-27] MEDS: (RENVELA) SEVELAMER **CARBONate** 800 MG TAB PO SCH ×3 (08:26→17:22)
[2022-11-27] MEDS: DOXYCYCLINE HYCLATE 100MG TABLET PO SCH ×2 (08:26→20:28)
[2022-11-27] MEDS: allopurinoL 100 MG TAB PO SCH (08:26)
[2022-11-27] MEDS: LACTOBACILLUS ACIDOPHILUS CAP (BACID) PO SCH (08:26)
[2022-11-27] MEDS: PANTOPRAZOLE 40MG TAB (PROTONIX) PO SCH (08:27)
[2022-11-27] MEDS: PARoxetine 20MG TABLET PO SCH (08:27)
[2022-11-27] MEDS: INSULIN LISPRO (NovoLOG) PER UNIT SC SCH ×4 (08:27→20:30)
[2022-11-27] MEDS: APIXABAN 2.5 MG TAB (ELIQUIS) PO SCH ×2 (08:30→20:28)
[2022-11-27] MEDS: **hydrALAZINE** 50 MG TAB PO SCH ×3 (08:30→20:28)
[2022-11-27] MEDS: amLODIPine 5 MG TAB PO SCH ×2 (08:30→20:28)
[2022-11-27] MEDS: CARVedilol 12.5 MG TAB PO SCH ×2 (08:30→20:28)
[2022-11-27] MEDS: CLOPIDOGREL 75 MG TAB PO SCH (08:31)
[2022-11-27 14:00] VITALS: BP 126/71
[2022-11-27] MEDS: CEFEPIME HCL 1 GM in D5W MINI-BAG PLUS 50 ML IV SCH (16:33)
[2022-11-27 19:46] VITALS: BP 125/69
[2022-11-27] MEDS: ATORVASTATIN 20 MG TAB PO SCH (20:28)
[2022-11-27] MEDS: LEVEMIR (INSULIN DETEMIR) 1 UNITS/0.01ML SC SCH (20:29)
[2022-11-28] MEDS: IPRATROPIUM 0.5MG/ALBUTEROL 2.5MG INH SOL UD 3ML (DUONEB) NEB SCH ×4 (01:29→19:33)
[2022-11-28 06:23] VITALS: BP 143/72
[2022-11-28 08:03] LABS: BASO # 0.1 10^3/uL (0.0-0.2); BASO % 0.5 % (0.0-1.0); EOS # 0.4 10^3/uL (0.0-0.5); EOS % 4.5 % (0.0-3.0); HEMATOCRIT 30.8 % (42.0-52.0); HEMOGLOBIN 9.7 g/dl (13.5-17.5); LYMPH # 1.5 10^3/uL (1.5-5.0); MEAN CORPUSCULAR HEMOGLOBIN 30.9 pg (27.0-33.0); MEAN CORPUSCULAR HGB CONC 31.5 g/dl (32.0-36.5); MEAN CORPUSCULAR VOLUME 98.1 fl (80.0-96.0); MONO # 0.6 10^3/uL (0.0-0.8); MONO % 6.3 % (2.0-8.0); NEUTROPHILS # 6.8 10^3/uL (1.5-8.5); NEUTROPHILS % 68.9 % (36.0-66.0); PLATELET COUNT, AUTOMATED 148 10^3/uL (150-450); RED BLOOD COUNT 3.14 10^6/uL (4.30-6.10); WHITE BLOOD COUNT 9.9 10^3/uL (4.0-10.0)
[2022-11-28] MEDS: PANTOPRAZOLE 40MG TAB (PROTONIX) PO SCH (08:13)
[2022-11-28] MEDS: DOXYCYCLINE HYCLATE 100MG TABLET PO SCH ×2 (08:13→21:41)
[2022-11-28] MEDS: INSULIN LISPRO (NovoLOG) PER UNIT SC SCH ×4 (08:13→21:00)
[2022-11-28] MEDS: LACTOBACILLUS ACIDOPHILUS CAP (BACID) PO SCH (08:13)
[2022-11-28] MEDS: PARoxetine 20MG TABLET PO SCH (08:13)
[2022-11-28] MEDS: CLOPIDOGREL 75 MG TAB PO SCH (08:14)
[2022-11-28] MEDS: (RENVELA) SEVELAMER **CARBONate** 800 MG TAB PO SCH ×3 (08:14→17:29)
[2022-11-28] MEDS: APIXABAN 2.5 MG TAB (ELIQUIS) PO SCH ×2 (08:14→21:41)
[2022-11-28] MEDS: allopurinoL 100 MG TAB PO SCH (08:14)
[2022-11-28] MEDS: amLODIPine 5 MG TAB PO SCH ×2 (08:18→21:41)
[2022-11-28] MEDS: CARVedilol 12.5 MG TAB PO SCH ×2 (08:19→21:41)
[2022-11-28] MEDS: **hydrALAZINE** 50 MG TAB PO SCH ×3 (08:20→21:41)
[2022-11-28 08:21] LABS: ALBUMIN 2.5 G/DL (3.2-5.2); CALCIUM LEVEL 7.9 MG/DL (8.3-10.6); CREATININE FOR GFR 3.2 MG/DL (0.70-1.30); GLOMERULAR FILTRATION RATE 21.1 (>49); PHOSPHORUS LEVEL 3.6 MG/DL (2.4-5.1); POTASSIUM SERUM 3.9 MMOL/L (3.5-5.1)
[2022-11-28 14:00] VITALS: BP 135/72
[2022-11-28] MEDS: LEVEMIR (INSULIN DETEMIR) 1 UNITS/0.01ML SC SCH (21:00)
[2022-11-28] MEDS: ATORVASTATIN 20 MG TAB PO SCH (21:42)
[2022-11-28 22:00] VITALS: BP 161/77
[2022-11-29] MEDS: IPRATROPIUM 0.5MG/ALBUTEROL 2.5MG INH SOL UD 3ML (DUONEB) NEB SCH ×4 (02:00→18:52)
[2022-11-29] MEDS ORDERED: SODIUM CHLORIDE 0.9% 1000ML IV PRN (06:00)
[2022-11-29] MEDS ORDERED: HEPARIN 1,000UNITS/ML 10ML VIAL (FOR RADIOLOGY & DIALYSIS ONLY) XX SCH (06:00)
[2022-11-29] MEDS ORDERED: HEPARIN 1,000UNITS/ML 10ML VIAL (FOR RADIOLOGY & DIALYSIS ONLY) IV PRN (06:00)
[2022-11-29 06:16] VITALS: BP 136/50
[2022-11-29] MEDS: **hydrALAZINE** 50 MG TAB PO SCH (06:30)
[2022-11-29] MEDS: APIXABAN 2.5 MG TAB (ELIQUIS) PO SCH ×2 (06:30→21:31)
[2022-11-29] MEDS: CALCITRIOL 0.25 MCG CAP (S0169) PO SCH (06:30)
[2022-11-29] MEDS: PANTOPRAZOLE 40MG TAB (PROTONIX) PO SCH (06:30)
[2022-11-29] MEDS: (RENVELA) SEVELAMER **CARBONate** 800 MG TAB PO SCH ×3 (06:31→17:59)
[2022-11-29] MEDS: allopurinoL 100 MG TAB PO SCH (06:31)
[2022-11-29] MEDS: CLOPIDOGREL 75 MG TAB PO SCH (06:31)
[2022-11-29] MEDS: LACTOBACILLUS ACIDOPHILUS CAP (BACID) PO SCH (06:31)
[2022-11-29] MEDS: DOXYCYCLINE HYCLATE 100MG TABLET PO SCH ×2 (06:31→21:30)
[2022-11-29] MEDS: PARoxetine 20MG TABLET PO SCH (06:31)
[2022-11-29] MEDS: amLODIPine 5 MG TAB PO SCH ×2 (06:32→21:00)
[2022-11-29] MEDS: CARVedilol 12.5 MG TAB PO SCH ×2 (06:33→21:00)
[2022-11-29 07:24] LABS: ALBUMIN 2.4 G/DL (3.2-5.2); CALCIUM LEVEL 7.8 MG/DL (8.3-10.6); CREATININE FOR GFR 3.34 MG/DL (0.70-1.30); GLOMERULAR FILTRATION RATE 20.1 (>49); PHOSPHORUS LEVEL 4.6 MG/DL (2.4-5.1)
[2022-11-29 07:49] LABS: HEMATOCRIT 29.2 % (42.0-52.0); HEMOGLOBIN 9.3 g/dl (13.5-17.5); MEAN CORPUSCULAR HEMOGLOBIN 31.1 pg (27.0-33.0); MEAN CORPUSCULAR HGB CONC 31.8 g/dl (32.0-36.5); MEAN CORPUSCULAR VOLUME 97.7 fl (80.0-96.0); PLATELET COUNT, AUTOMATED 135 10^3/uL (150-450); RED BLOOD COUNT 2.99 10^6/uL (4.30-6.10); WHITE BLOOD COUNT 8.7 10^3/uL (4.0-10.0)
[2022-11-29] MEDS: INSULIN LISPRO (NovoLOG) PER UNIT SC SCH ×4 (07:49→21:00)
[2022-11-29 08:18] LABS: ATYPICAL LYMPH 1 % (0-5); EOSINOPHILS 1 % (0-3); LYMPHOCYTES 13 % (16-44); MONOCYTES 9 % (0-5); MYELOCYTES 1 % (0-0); NEUTROPHILS 72 % (28-66); PLATELET ESTIMATE DECREASED (NORMAL)
[2022-11-29 08:19] LABS: HYPOCHROMASIA 1+; POLYCHROMASIA 1+
[2022-11-29 08:20] LABS: ANISOCYTOSIS 2+
[2022-11-29 08:21] LABS: HELMET CELLS 1+; TEAR DROP CELLS 1+
[2022-11-29] MEDS: DARBEPOETIN 100MCG/0.5ML *DIALYSIS* SYRINGE SC SCH (09:18)
[2022-11-29 13:09] VITALS: BP 111/52
[2022-11-29 14:00] VITALS: BP 111/53
[2022-11-29 20:22] VITALS: BP 112/61
[2022-11-29] MEDS: ATORVASTATIN 20 MG TAB PO SCH (21:30)
[2022-11-29] MEDS: LEVEMIR (INSULIN DETEMIR) 1 UNITS/0.01ML SC SCH (21:30)
[2022-11-30] MEDS: IPRATROPIUM 0.5MG/ALBUTEROL 2.5MG INH SOL UD 3ML (DUONEB) NEB SCH ×2 (02:01→07:22)
[2022-11-30 06:23] VITALS: BP 147/64
[2022-11-30 06:36] LABS: HEMATOCRIT 30.1 % (42.0-52.0); HEMOGLOBIN 9.7 g/dl (13.5-17.5); MEAN CORPUSCULAR HGB CONC 32.2 g/dl (32.0-36.5); MEAN CORPUSCULAR VOLUME 96.2 fl (80.0-96.0); PLATELET COUNT, AUTOMATED 130 10^3/uL (150-450); RED BLOOD COUNT 3.13 10^6/uL (4.30-6.10); WHITE BLOOD COUNT 10.3 10^3/uL (4.0-10.0)
[2022-11-30 06:57] LABS: ANISOCYTOSIS 1+; ATYPICAL LYMPH 5 % (0-5); EOSINOPHILS 4 % (0-3); LYMPHOCYTES 20 % (16-44); MONOCYTES 5 % (0-5); MYELOCYTES 2 % (0-0); NEUTROPHILS 64 % (28-66); PLATELET ESTIMATE DECREASED (NORMAL); POIKILOCYTOSIS 1+; POLYCHROMASIA 1+
[2022-11-30 07:04] LABS: ALBUMIN 2.5 G/DL (3.2-5.2); CALCIUM LEVEL 7.7 MG/DL (8.3-10.6); CREATININE FOR GFR 3.31 MG/DL (0.70-1.30); GLOMERULAR FILTRATION RATE 20.3 (>49); POTASSIUM SERUM 3.5 MMOL/L (3.5-5.1)
[2022-11-30] MEDS: (RENVELA) SEVELAMER **CARBONate** 800 MG TAB PO SCH ×2 (07:30→12:23)
[2022-11-30] MEDS: LACTOBACILLUS ACIDOPHILUS CAP (BACID) PO SCH (09:51)
[2022-11-30] MEDS: allopurinoL 100 MG TAB PO SCH (09:51)
[2022-11-30] MEDS: PANTOPRAZOLE 40MG TAB (PROTONIX) PO SCH (09:59)
[2022-11-30 10:00] VITALS: BP 122/68
[2022-11-30] MEDS: amLODIPine 5 MG TAB PO SCH (10:00)
[2022-11-30] MEDS: PARoxetine 20MG TABLET PO SCH (10:00)
[2022-11-30] MEDS: CARVedilol 12.5 MG TAB PO SCH (10:00)
[2022-11-30] MEDS: CLOPIDOGREL 75 MG TAB PO SCH (10:01)
[2022-11-30] MEDS: APIXABAN 2.5 MG TAB (ELIQUIS) PO SCH (10:01)
[2022-11-30] MEDS: DOXYCYCLINE HYCLATE 100MG TABLET PO SCH (10:01)
[2022-11-30] MEDS: INSULIN LISPRO (NovoLOG) PER UNIT SC SCH ×2 (10:02→12:24)
[2022-11-30] MEDS ORDERED: LISI20TA33 PO (10:57)
[2022-11-30] MEDS ORDERED: DOXY100T PO (10:57)
[2022-11-30] MEDS ORDERED: ELIQ2.5T PO (10:57)
[2022-11-30] MEDS ORDERED: ALLO10TA PO (10:57)
[2022-12-01] MEDS ORDERED: APIXABAN 5 MG TAB (ELIQUIS) PO SCH (21:00)
== END 2022-11-30 14:30 | disposition home health service (06) | DRG 469 ==
LOC: M ED 00:18 → M ED INP 05:37 → ENRESERV 14:31 → M PCU 15:18 → M MS5PR 11-26 21:34
PROVIDERS: ADMIT Internal Medicine; ATTEND Internal Medicine
PROC: 30233N1 Transfusion of Nonautologous Red Blood Cells into Peripheral Vein, Percutaneous Approach (ICD-10-PCS; 2022-11-21)
PROC: 06HM33Z Insertion of Infusion Device into Right Femoral Vein, Percutaneous Approach (ICD-10-PCS; 2022-11-22)
PROC: 5A1D70Z Performance of Urinary Filtration, Intermittent, Less than 6 Hours Per Day (ICD-10-PCS; 2022-11-24)
PROC: 0JH63XZ Insertion of Tunneled Vascular Access Device into Chest Subcutaneous Tissue and Fascia, Percutaneous Approach (ICD-10-PCS; 2022-11-26)
PROC: 02HV33Z Insertion of Infusion Device into Superior Vena Cava, Percutaneous Approach (ICD-10-PCS; principal; 2022-11-26 09:00)
DX: N17.9 Acute kidney failure, unspecified (principal); J96.21 Acute and chronic respiratory failure with hypoxia; J15.6 Pneumonia due to other Gram-negative bacteria; I13.2 Hypertensive heart and chronic kidney disease with heart failure and with stage 5 chronic kidney disease, or end stage renal disease; E87.20 Acidosis, unspecified; D69.6 Thrombocytopenia, unspecified; I82.621 Acute embolism and thrombosis of deep veins of right upper extremity; I27.20 Pulmonary hypertension, unspecified; I50.9 Heart failure, unspecified; I27.81 Cor pulmonale (chronic); E11.22 Type 2 diabetes mellitus with diabetic chronic kidney disease; E11.65 Type 2 diabetes mellitus with hyperglycemia; E87.1 Hypo-osmolality and hyponatremia; E87.5 Hyperkalemia; J44.9 Chronic obstructive pulmonary disease, unspecified; K21.9 Gastro-esophageal reflux disease without esophagitis; R19.7 Diarrhea, unspecified; D63.1 Anemia in chronic kidney disease; M10.9 Gout, unspecified; E55.9 Vitamin D deficiency, unspecified; Z88.8 Allergy status to other drugs, medicaments and biological substances; Z79.899 Other long term (current) drug therapy; Z79.4 Long term (current) use of insulin; Z89.512 Acquired absence of left leg below knee; N18.6 End stage renal disease

== ENCOUNTER 2023-01-05 09:32 | Emergency (ER) | payer BC ==
[~2023-01-05] VITALS: Ht 185.4 cm; Wt 91.0 kg
[~2023-01-05 09:32] MED LIST changes: +ALLO10TA PO; +DOXY100T PO; +ELIQ2.5T PO; +PROC20004 INJ; +SEVE800T3 PO
[2023-01-05 10:44] VITALS: BP 154/70; TEMP 98.8; O2SAT 100
== END 2023-01-05 10:51 | disposition home or self-care (01) ==
LOC: M ED 09:32
DX: L02.215 Cutaneous abscess of perineum (principal); L89.90 Pressure ulcer of unspecified site, unspecified stage; E11.40 Type 2 diabetes mellitus with diabetic neuropathy, unspecified; I10 Essential (primary) hypertension; I50.9 Heart failure, unspecified; N18.9 Chronic kidney disease, unspecified; E78.5 Hyperlipidemia, unspecified; J44.9 Chronic obstructive pulmonary disease, unspecified; Z79.4 Long term (current) use of insulin; Z79.899 Other long term (current) drug therapy; Z88.8 Allergy status to other drugs, medicaments and biological substances

== ENCOUNTER 2023-03-14 21:38 | Inpatient (IN) | payer BC, MEDICARE ==
[~2023-03-14] VITALS: Ht 185.4 cm; Wt 93.5 kg
[~2023-03-14 21:38] MED LIST changes: -GABA-283 PO; +GABA-284 PO; -TOUJ1.2I SQ
[2023-03-14 23:05] LABS: BASO % 0.3 % (0.0-1.0); EOS % 0.3 % (0.0-3.0); HEMATOCRIT 30.9 % (42.0-52.0); MEAN CORPUSCULAR HEMOGLOBIN 30.7 pg (27.0-33.0); MEAN CORPUSCULAR HGB CONC 32.4 g/dl (32.0-36.5); MEAN CORPUSCULAR VOLUME 94.8 fl (80.0-96.0); MONO # 0.5 10^3/uL (0.0-0.8); MONO % 6.1 % (2.0-8.0); NEUTROPHILS # 6.2 10^3/uL (1.5-8.5); NEUTROPHILS % 78.6 % (36.0-66.0); PLATELET COUNT, AUTOMATED 152 10^3/uL (150-450); RED BLOOD COUNT 3.26 10^6/uL (4.30-6.10); WHITE BLOOD COUNT 7.8 10^3/uL (4.0-10.0)
[2023-03-14 23:26] LABS: CALCIUM LEVEL 8.1 MG/DL (8.3-10.6); CREATININE FOR GFR 4.26 MG/DL (0.70-1.30); GLOMERULAR FILTRATION RATE 15.2 (>49); POTASSIUM SERUM 4.1 MMOL/L (3.5-5.1)
[2023-03-15] MEDS ORDERED: ACETAMINOPHEN TAB 650MG DOSE (2X325MG) PO ONE
[2023-03-15] MEDS ORDERED: cefTRIAXone SOD 1 GM in D5W MINI-BAG PLUS 50 ML IV ONE (01:05)
[2023-03-15] MEDS ORDERED: GLUCOSE 4GM CHEW TABLET PO PRN (01:25)
[2023-03-15] MEDS ORDERED: ACETAMINOPHEN TAB 650MG DOSE (2X325MG) PO PRN (01:25)
[2023-03-15] MEDS ORDERED: DEXTROSE 50% 50ML SYRINGE IV PRN (01:25)
[2023-03-15] MEDS ORDERED: GLUCAGON INJ 1MG VIAL SC PRN (01:25)
[2023-03-15] MEDS ORDERED: ALLO300T2 PO (02:33)
[2023-03-15] MEDS ORDERED: VANCOMYCIN HCL 1,000 MG, VIAL MATE ADAPTER 1 EACH in D5W 250 ML IV SCH ×2 (02:35→18:00)
[2023-03-15] MEDS ORDERED: HOME MED LIST COMPLETE! XX SCH (02:40)
[2023-03-15] MEDS ORDERED: VANCOMYCIN HCL 750 MG, VIAL MATE ADAPTER 1 EACH in D5W 250 ML IV ONE ×2 (03:00→04:00)
[2023-03-15] MEDS: HEPARIN SOD (PORCINE) 5000UNITS/ML 1ML VIAL/SYRINGE SC SCH ×3 (04:42→20:14)
[2023-03-15] MEDS ORDERED: CEFEPIME HCL 2 GM in D5W 50 ML IV SCH (06:00)
[2023-03-15] MEDS: INSULIN LISPRO (NovoLOG) PER UNIT SC SCH ×4 (07:30→20:03)
[2023-03-15] MEDS ORDERED: HEPARIN 1,000UNITS/ML 10ML VIAL (FOR RADIOLOGY & DIALYSIS ONLY) XX SCH (08:05)
[2023-03-15] MEDS ORDERED: SODIUM CHLORIDE 0.9% 1000ML IV PRN (08:05)
[2023-03-15] MEDS ORDERED: HEPARIN 1,000UNITS/ML 10ML VIAL (FOR RADIOLOGY & DIALYSIS ONLY) IV PRN (08:05)
[2023-03-15 11:26] LABS: PROCALCITONIN 0.64 ng/ml
[2023-03-15 16:25] VITALS: BP 143/59; TEMP 98.1; O2SAT 97
[2023-03-15] MEDS ORDERED: VANCOMYCIN HCL 1,000 MG, VIAL MATE ADAPTER 1 EACH in D5W 250 ML IV ONE (19:00)
[2023-03-15 19:30] VITALS: BP 153/73; TEMP 98.8; O2SAT 97
[2023-03-15] MEDS: LEVEMIR (INSULIN DETEMIR) 1 UNITS/0.01ML SC SCH (20:14)
[2023-03-15] MEDS: CARVedilol 12.5 MG TAB PO SCH (20:15)
[2023-03-15] MEDS: CEFEPIME HCL 1 GM in D5W MINI-BAG PLUS 50 ML IV SCH (20:42)
[2023-03-16 05:04] VITALS: BP 155/75; TEMP 98.1; O2SAT 99
[2023-03-16] MEDS: HEPARIN SOD (PORCINE) 5000UNITS/ML 1ML VIAL/SYRINGE SC SCH ×3 (05:30→21:50)
[2023-03-16 05:52] LABS: HEMATOCRIT 31.7 % (42.0-52.0); HEMOGLOBIN 10.1 g/dl (13.5-17.5); MEAN CORPUSCULAR HEMOGLOBIN 30.7 pg (27.0-33.0); MEAN CORPUSCULAR HGB CONC 31.9 g/dl (32.0-36.5); MEAN CORPUSCULAR VOLUME 96.4 fl (80.0-96.0); PLATELET COUNT, AUTOMATED 141 10^3/uL (150-450); RED BLOOD COUNT 3.29 10^6/uL (4.30-6.10); WHITE BLOOD COUNT 4.8 10^3/uL (4.0-10.0)
[2023-03-16] MEDS ORDERED: CEFEPIME HCL 1 GM in D5W 50 ML IV SCH (06:00)
[2023-03-16 06:16] LABS: CALCIUM LEVEL 8.8 MG/DL (8.3-10.6); CREATININE FOR GFR 3.3 MG/DL (0.70-1.30); GLOMERULAR FILTRATION RATE 20.4 (>49); POTASSIUM SERUM 3.9 MMOL/L (3.5-5.1)
[2023-03-16] MEDS: INSULIN LISPRO (NovoLOG) PER UNIT SC SCH ×4 (07:30→20:22)
[2023-03-16 07:45] LABS: VANCOMYCIN RANDOM 22.1 UG/ML
[2023-03-16] MEDS: (RENVELA) SEVELAMER **CARBONate** 800 MG TAB PO SCH ×2 (09:15→12:00)
[2023-03-16] MEDS: CLOPIDOGREL 75 MG TAB PO SCH (09:15)
[2023-03-16] MEDS: PARoxetine 20MG TABLET PO SCH (09:15)
[2023-03-16] MEDS: FERROUS GLUCONATE 324 MG TAB PO SCH (09:15)
[2023-03-16] MEDS: allopurinoL 300 MG TAB PO SCH (09:16)
[2023-03-16] MEDS: PANTOPRAZOLE 40MG TAB (PROTONIX) PO SCH (09:16)
[2023-03-16] MEDS: amLODIPine 5 MG TAB PO SCH (09:20)
[2023-03-16] MEDS: CARVedilol 12.5 MG TAB PO SCH ×2 (09:21→20:21)
[2023-03-16 14:00] VITALS: BP 121/59; TEMP 97.7; O2SAT 96
[2023-03-16] MEDS: LACTOBACILLUS ACIDOPHILUS CAP (BACID) PO SCH (17:39)
[2023-03-16 18:03] LABS: CLOSTRIDIUM DIFFICILE PCR POSITIVE (NEGATIVE)
[2023-03-16 20:06] VITALS: BP 154/77; TEMP 97.5; O2SAT 99
[2023-03-16] MEDS: FIDAXOMICIN 200 MG TAB (DIFICID) PO SCH (20:21)
[2023-03-16] MEDS: CEFEPIME HCL 1 GM in D5W MINI-BAG PLUS 50 ML IV SCH (20:21)
[2023-03-16] MEDS: LEVEMIR (INSULIN DETEMIR) 1 UNITS/0.01ML SC SCH (20:22)
[2023-03-17] MEDS ORDERED: SODIUM CHLORIDE 0.9% 1000ML IV PRN (05:15)
[2023-03-17] MEDS ORDERED: HEPARIN 1,000UNITS/ML 10ML VIAL (FOR RADIOLOGY & DIALYSIS ONLY) XX SCH (05:15)
[2023-03-17] MEDS ORDERED: HEPARIN 1,000UNITS/ML 10ML VIAL (FOR RADIOLOGY & DIALYSIS ONLY) IV PRN (05:15)
[2023-03-17 06:09] VITALS: BP 164/79; TEMP 97.3; O2SAT 100
[2023-03-17] MEDS: CARVedilol 12.5 MG TAB PO SCH (06:14)
[2023-03-17] MEDS: PANTOPRAZOLE 40MG TAB (PROTONIX) PO SCH (06:14)
[2023-03-17] MEDS: PARoxetine 20MG TABLET PO SCH (06:14)
[2023-03-17] MEDS: LACTOBACILLUS ACIDOPHILUS CAP (BACID) PO SCH (06:14)
[2023-03-17] MEDS: FIDAXOMICIN 200 MG TAB (DIFICID) PO SCH (06:14)
[2023-03-17 06:15] VITALS: BP 164/79
[2023-03-17] MEDS: amLODIPine 5 MG TAB PO SCH (06:15)
[2023-03-17] MEDS: (RENVELA) SEVELAMER **CARBONate** 800 MG TAB PO SCH ×2 (06:15→12:00)
[2023-03-17] MEDS: FERROUS GLUCONATE 324 MG TAB PO SCH (06:15)
[2023-03-17] MEDS: CLOPIDOGREL 75 MG TAB PO SCH (06:15)
[2023-03-17] MEDS: HEPARIN SOD (PORCINE) 5000UNITS/ML 1ML VIAL/SYRINGE SC SCH ×2 (06:18→14:00)
[2023-03-17] MEDS: allopurinoL 300 MG TAB PO SCH (06:30)
[2023-03-17] MEDS: INSULIN LISPRO (NovoLOG) PER UNIT SC SCH ×2 (07:30→11:49)
[2023-03-17 10:27] LABS: BASO % 0.6 % (0.0-1.0); EOS % 1.1 % (0.0-3.0); HEMATOCRIT 29.1 % (42.0-52.0); HEMOGLOBIN 9.5 g/dl (13.5-17.5); LYMPH # 0.9 10^3/uL (1.5-5.0); LYMPH % 26.3 % (24.0-44.0); MEAN CORPUSCULAR HEMOGLOBIN 31.3 pg (27.0-33.0); MEAN CORPUSCULAR HGB CONC 32.6 g/dl (32.0-36.5); MEAN CORPUSCULAR VOLUME 95.7 fl (80.0-96.0); MONO # 0.4 10^3/uL (0.0-0.8); MONO % 10.8 % (2.0-8.0); NEUTROPHILS # 2.1 10^3/uL (1.5-8.5); NEUTROPHILS % 60.4 % (36.0-66.0); PLATELET COUNT, AUTOMATED 129 10^3/uL (150-450); RED BLOOD COUNT 3.04 10^6/uL (4.30-6.10); WHITE BLOOD COUNT 3.5 10^3/uL (4.0-10.0)
[2023-03-17 11:06] LABS: CALCIUM LEVEL 8.2 MG/DL (8.3-10.6); CREATININE FOR GFR 4.18 MG/DL (0.70-1.30); GLOMERULAR FILTRATION RATE 15.5 (>49)
[2023-03-17] MEDS ORDERED: DIFI200T PO (11:09)
[2023-03-17] MEDS ORDERED: AMLO1TAB24 PO ×2 (12:01→12:44)
[2023-03-17] MEDS ORDERED: RISATAB3 PO ×2 (12:01→12:44)
[2023-03-17] MEDS ORDERED: LEVO1TAB39 PO ×2 (12:01→12:44)
[2023-03-17] MEDS ORDERED: FIDA200TA PO (12:01)
[2023-03-17] MEDS ORDERED: LevoFLOXacin 750 MG TABLET PO ONE (13:00)
[2023-03-17 16:08] LABS: IgG P18 AB Absent (.); IgG P23 AB Absent (.); IgG P28 AB Absent (.); IgG P30 AB Absent (.); IgG P39 AB Absent (.); IgG P41 AB Present (.); IgG P45 AB Absent (.); IgG P66 AB Absent (.); IgG P93 AB Present (.); IgM P23 AB Absent (.); IgM P39 AB Absent (.); IgM P41 AB Absent (.); LYME IgG WB INTERPRETATION Negative (.); LYME IgM WB INTERPRETATION Negative (.)
== END 2023-03-17 17:40 | disposition home or self-care (01) | DRG 463 ==
LOC: M ED 21:38 → M ED INP 03-15 01:22 → M MS5PR 03-15 16:00
PROVIDERS: ADMIT Internal Medicine; ATTEND Internal Medicine
PROC: 5A1D70Z Performance of Urinary Filtration, Intermittent, Less than 6 Hours Per Day (ICD-10-PCS; principal; 2023-03-15)
DX: N39.0 Urinary tract infection, site not specified (principal); I13.2 Hypertensive heart and chronic kidney disease with heart failure and with stage 5 chronic kidney disease, or end stage renal disease; N18.6 End stage renal disease; E11.22 Type 2 diabetes mellitus with diabetic chronic kidney disease; A04.72 Enterocolitis due to Clostridium difficile, not specified as recurrent; E11.51 Type 2 diabetes mellitus with diabetic peripheral angiopathy without gangrene; I27.20 Pulmonary hypertension, unspecified; E87.1 Hypo-osmolality and hyponatremia; B96.1 Klebsiella pneumoniae [K. pneumoniae] as the cause of diseases classified elsewhere; J98.11 Atelectasis; K21.9 Gastro-esophageal reflux disease without esophagitis; D63.1 Anemia in chronic kidney disease; Z20.822 Contact with and (suspected) exposure to COVID-19; I73.9 Peripheral vascular disease, unspecified; Z89.512 Acquired absence of left leg below knee; Z99.2 Dependence on renal dialysis; Z87.891 Personal history of nicotine dependence; Z79.4 Long term (current) use of insulin; Z79.899 Other long term (current) drug therapy; Z88.1 Allergy status to other antibiotic agents; Z88.8 Allergy status to other drugs, medicaments and biological substances; M10.9 Gout, unspecified

== ENCOUNTER → 2023-03-25 | Outpatient (CLI) | payer BC ==
[~2023-03-25] MED LIST changes: +DIFI200T PO; +FIDA200TA PO; +LEVO1TAB39 PO
[2023-03-25 09:15] LABS: INR 1.19; PROTHROMBIN TIME 14.8 SECONDS (12.5-14.5)
[2023-03-25 09:16] LABS: PARTIAL THROMBOPLASTIN TIME 32.4 SECONDS (24.8-34.2)
[2023-03-25 09:19] LABS: HEMATOCRIT 32.6 % (42.0-52.0); HEMOGLOBIN 10.2 g/dl (13.5-17.5); MEAN CORPUSCULAR HEMOGLOBIN 30.1 pg (27.0-33.0); MEAN CORPUSCULAR HGB CONC 31.3 g/dl (32.0-36.5); MEAN CORPUSCULAR VOLUME 96.2 fl (80.0-96.0); PLATELET COUNT, AUTOMATED 154 10^3/uL (150-450); RED BLOOD COUNT 3.39 10^6/uL (4.30-6.10); WHITE BLOOD COUNT 3.9 10^3/uL (4.0-10.0)
[2023-03-25 09:35] LABS: TOTAL IRON BINDING CAPACITY 298 UG/DL (250-425)
[2023-03-25 09:36] LABS: ALBUMIN 3.2 G/DL (3.2-5.2); ALKALINE PHOSPHATASE 82 U/L (46-116); ALT/SGPT 21 U/L (7.0-40); AST/SGOT 21 U/L (<34); BILIRUBIN,DIRECT 0.4 MG/DL (<0.4); BILIRUBIN,TOTAL 0.7 MG/DL (0.3-1.2); BLOOD UREA NITROGEN 28 MG/DL (9-23); CALCIUM LEVEL 8.4 MG/DL (8.3-10.6); CARBON DIOXIDE LEVEL 33 MMOL/L (20-31); CHLORIDE LEVEL 99 MMOL/L (98-107); CREATININE FOR GFR 2.46 MG/DL (0.70-1.30); GLOMERULAR FILTRATION RATE 28.6 (>49); GLUCOSE, FASTING 137 MG/DL (74-106); IRON (FE) 121 UG/DL (65-175); PERCENT SATURATION 40.6 % (19.7-50.0); POTASSIUM SERUM 4.2 MMOL/L (3.5-5.1); SODIUM LEVEL 139 MMOL/L (136-145); TOTAL PROTEIN 6.7 G/DL (5.7-8.2)
[2023-03-25 10:39] LABS: HEPATITIS C VIRUS ABY INDEX 0.14 INDEX (<0.8)
[2023-03-29 00:07] LABS: ANTI-MITOCHONDRIAL ANTIBODY <20.0 Units (0.0-20.0); ANTINUCLEAR ANTIBODIES DIRECT Negative (Negative); HEPATITIS A IgG TOTAL Negative (Negative); HEPATITIS B CORE ANTIBODY IGG Negative (Negative); LIVER-KIDNEY MICROSOMAL ABY <20.1 Units (0.0-20.0)
== END ==
LOC: M LAB 08:15
PROVIDERS: ATTEND Internal Medicine Gastroenterology
DX: K74.60 Unspecified cirrhosis of liver (principal)

== ENCOUNTER → 2023-04-26 | Outpatient (CLI) | payer BC ==
[2023-04-26 08:38] LABS: BASO % 0.7 % (0.0-1.0); EOS # 0.1 10^3/uL (0.0-0.5); EOS % 1.4 % (0.0-3.0); HEMATOCRIT 34.6 % (42.0-52.0); HEMOGLOBIN 11.2 g/dl (13.5-17.5); LYMPH % 22.8 % (24.0-44.0); MEAN CORPUSCULAR HEMOGLOBIN 31.3 pg (27.0-33.0); MEAN CORPUSCULAR HGB CONC 32.4 g/dl (32.0-36.5); MEAN CORPUSCULAR VOLUME 96.6 fl (80.0-96.0); MONO # 0.3 10^3/uL (0.0-0.8); MONO % 5.9 % (2.0-8.0); NEUTROPHILS % 68.5 % (36.0-66.0); PLATELET COUNT, AUTOMATED 116 10^3/uL (150-450); RED BLOOD COUNT 3.58 10^6/uL (4.30-6.10); WHITE BLOOD COUNT 4.4 10^3/uL (4.0-10.0)
[2023-04-26 09:01] LABS: CALCIUM LEVEL 8.5 MG/DL (8.3-10.6); CREATININE FOR GFR 3.75 MG/DL (0.70-1.30); GLOMERULAR FILTRATION RATE 17.6 (>49); POTASSIUM SERUM 4.2 MMOL/L (3.5-5.1)
== END ==
LOC: M LAB 08:09
PROVIDERS: ATTEND Internal Medicine Cardiovascular Disease
DX: I50.32 Chronic diastolic (congestive) heart failure (principal); I11.0 Hypertensive heart disease with heart failure; I25.10 Atherosclerotic heart disease of native coronary artery without angina pectoris

== ENCOUNTER → 2023-04-27 | Outpatient (CLI) | payer BC ==
[~2023-04-27] MED LIST changes: -CEFD300C41 PO; +CEFD300C42 PO
== END ==
LOC: M SLEEP 20:00
PROVIDERS: ATTEND Internal Medicine Pulmonary Disease
DX: G47.33 Obstructive sleep apnea (adult) (pediatric) (principal)

== ENCOUNTER → 2023-06-17 | Outpatient (CLI) | payer BC, OTHER | LOC: M RAD 14:46 | PROVIDERS: ATTEND Physician Assistant Medical | DX: E04.1 Nontoxic single thyroid nodule (principal) ==

== ENCOUNTER 2023-07-29 18:44 | Emergency (ER) | payer OTHER, BC ==
[~2023-07-29] VITALS: Ht 185.4 cm; Wt 88.6 kg
[~2023-07-29 18:44] MED LIST changes: +CEFD1CAP9 PO; -CEFD300C42 PO
[2023-07-29 22:05] LABS: RSV AMPLIFICATION NEGATIVE (NEGATIVE)
[2023-07-30] VITALS: BP 154/54; TEMP 98
[2023-07-30] MEDS ORDERED: NIRMATRELVIR/RITONAVIR CO-PACK (EMERGENCY USE AUTH) PO ONE
[2023-07-30 00:15] VITALS: O2SAT 95
[2023-07-30] MEDS ORDERED: NIRMATRELVIR/RITONAVIR CO-PACK (EMERGENCY USE AUTH) PO SCH (09:00)
[2023-07-30] MEDS ORDERED: NIRMATRELVIR/RITONAVIR (RENAL) CO-PACK (EUA) PO SCH ×2 (21:00)
== END 2023-07-30 00:27 | disposition home or self-care (01) ==
LOC: M ED 18:44
DX: U07.1 COVID-19 (principal); E11.9 Type 2 diabetes mellitus without complications; I10 Essential (primary) hypertension; K21.9 Gastro-esophageal reflux disease without esophagitis; F41.9 Anxiety disorder, unspecified; N18.6 End stage renal disease; Z88.1 Allergy status to other antibiotic agents; Z88.8 Allergy status to other drugs, medicaments and biological substances; Z79.4 Long term (current) use of insulin; Z79.899 Other long term (current) drug therapy; Z79.52 Long term (current) use of systemic steroids

== ENCOUNTER → 2023-08-09 | Outpatient (REF) | payer BC, OTHER ==
[~2023-08-09] MED LIST changes: +ATOR80TA59 PO; +CEPH500C PO; +ECOT81TA5 PO; -HYDR-3911 PO; -HYDR25TA PO; +HYDR25TA88 PO; +HYDR50TA46 PO
[2023-08-09 18:40] LABS: APPEARANCE, URINE CLEAR (CLEAR); BACTERIA, URINE AUTO NEGATIVE (NEGATIVE); BILIRUBIN, URINE AUTO NEGATIVE (NEGATIVE); BLOOD, URINE BLOOD 1+ (NEGATIVE); COLOR, URINE YELLOW (YELLOW); GLUCOSE, URINE (UA) AUTO 3+ mg/dL (NEGATIVE); KETONE, URINE AUTO NEGATIVE (NEGATIVE); LEUKOCYTE ESTERASE, URINE AUTO NEGATIVE (NEGATIVE); MUCUS, URINE SMALL (NEGATIVE); NITRITE, URINE AUTO NEGATIVE (NEGATIVE); PROTEIN, URINE AUTO 3+ mg/dL (NEGATIVE); RBC, URINE AUTO 2 /HPF (0-3); SPECIFIC GRAVITY URINE AUTO 1.015 (1.002-1.035); SQUAMOUS EPITHELIAL CELL UR AU 0 /HPF (0-6); UROBILINOGEN, URINE AUTO 0.2 mg/dL (0.0-2.0); WBC, URINE AUTO 7 /HPF (0-3)
== END ==
LOC: M LAB REF 17:20
PROVIDERS: ATTEND Internal Medicine Nephrology
DX: R30.0 Dysuria (principal)

== ENCOUNTER 2023-08-16 06:34 | Day surgery (SDC) | payer BC, OTHER ==
[~2023-08-16] VITALS: Ht 185.4 cm; Wt 95.7 kg
[~2023-08-16 06:34] MED LIST changes: -CEPH500C PO; -ECOT81TA5 PO
[2023-08-16] MEDS ORDERED: LIDOCAINE 1% SDV 5ML VIAL As Ordered ONE (06:41)
[2023-08-16] MEDS ORDERED: CEFUROXIME 1MG/0.1ML INTRACAMERAL INJ As Ordered ONE (06:41)
[2023-08-16] MEDS ORDERED: BSS IRR 500ML/OMIDRIA 4ML IRR BAG (OR ONLY) As Ordered ONE (06:42)
[2023-08-16] MEDS: CYCLOPENTOLATE 1% OPHTH SOLN 2ML BTL OS SCH (07:20)
[2023-08-16] MEDS: PHENYLEPHRINE 2.5% OPHTH SOL 2ML OS SCH (07:20)
[2023-08-16] MEDS: TROPICAMIDE 1% OPHTH SOLN 15ML OS SCH (07:21)
[2023-08-16] MEDS: OFLOXACIN 0.3 % (OCUFLOX) OPTH SOL 5ML OS SCH (07:21)
[2023-08-16] MEDS: PROPARACAINE 0.5% OPHTH SOL 15ML OS ONE (07:21)
[2023-08-16] MEDS ORDERED: fentaNYL 100 MCG/2 ML INJECTION As Ordered ONE (08:15)
[2023-08-16] MEDS ORDERED: MIDAZOLAM INJ 2MG/2ML VIAL As Ordered ONE (08:15)
[2023-08-16 08:38] VITALS: BP 164/74; TEMP 97.6; O2SAT 93
== END 2023-08-16 09:35 | disposition home or self-care (01) ==
LOC: M SDC 06:34
PROVIDERS: ATTEND Ophthalmology
DX: E11.36 Type 2 diabetes mellitus with diabetic cataract (principal); H25.12 Age-related nuclear cataract, left eye; I12.0 Hypertensive chronic kidney disease with stage 5 chronic kidney disease or end stage renal disease; E11.22 Type 2 diabetes mellitus with diabetic chronic kidney disease; N18.6 End stage renal disease; E78.00 Pure hypercholesterolemia, unspecified; E11.40 Type 2 diabetes mellitus with diabetic neuropathy, unspecified; Z99.2 Dependence on renal dialysis; Z79.899 Other long term (current) drug therapy; Z79.4 Long term (current) use of insulin; Z79.02 Long term (current) use of antithrombotics/antiplatelets; K76.0 Fatty (change of) liver, not elsewhere classified; Z88.8 Allergy status to other drugs, medicaments and biological substances
CPT/HCPCS: 66984; J0697; J1097; J2250; J3010; V2632

== ENCOUNTER → 2023-08-17 | Outpatient (RCR) | payer BC ==
[~2023-08-17] MED LIST changes: +HYDR25TA PO; -HYDR25TA88 PO
== END ==
LOC: M PT 08-15 08:54
PROVIDERS: ATTEND Family Medicine
DX: Z89.512 Acquired absence of left leg below knee (principal)

== ENCOUNTER → 2023-09-12 | Outpatient (REF) | payer BC, OTHER ==
[~2023-09-12] MED LIST changes: -HYDR25TA PO; +HYDR25TA88 PO
[2023-09-12 16:33] LABS: ALBUMIN 3.1 G/DL (3.2-5.2); ALKALINE PHOSPHATASE 57 U/L (46-116); ALT/SGPT < 9 U/L (7.0-40); AST/SGOT 14 U/L (<34); BILIRUBIN,TOTAL 0.7 MG/DL (0.3-1.2); BLOOD UREA NITROGEN 39 MG/DL (9-23); CALCIUM LEVEL 8.2 MG/DL (8.3-10.6); CARBON DIOXIDE LEVEL 30 MMOL/L (20-31); CHLORIDE LEVEL 103 MMOL/L (98-107); CHOLESTEROL LEVEL 83 MG/DL (<200); CHOLESTEROL RISK RATIO 6.38 (<5); CREATININE FOR GFR 3.59 MG/DL (0.70-1.30); GLOMERULAR FILTRATION RATE 18.4 (>49); GLUCOSE, FASTING 289 MG/DL (74-106); IRON (FE) 69 UG/DL (65-175); LDL CHOLESTEROL 41.8 MG/DL (<100); MAGNESIUM LEVEL 1.9 MG/DL (1.8-2.4); PERCENT SATURATION 23.2 % (19.7-50.0); POTASSIUM SERUM 3.8 MMOL/L (3.5-5.1); SODIUM LEVEL 139 MMOL/L (136-145); TOTAL IRON BINDING CAPACITY 298 UG/DL (250-425); TOTAL PROTEIN 6.2 G/DL (5.7-8.2); TRIGLYCERIDES LEVEL 141 MG/DL (<150)
[2023-09-12 16:36] LABS: FERRITIN 603.6 NG/ML (10.5-307.3)
[2023-09-12 16:38] LABS: FOLATE 6.7 NG/ML (>5.4); VITAMIN B12 LEVEL 656 PG/ML (211-911)
[2023-09-12 16:39] LABS: THYROID STIMULATING HORMONE 1.077 uIU/ML (0.55-4.78)
== END ==
LOC: M SFHCADAM 14:28
PROVIDERS: ATTEND Physician Assistant Medical
DX: E11.621 Type 2 diabetes mellitus with foot ulcer (principal); D63.8 Anemia in other chronic diseases classified elsewhere; L97.509 Non-pressure chronic ulcer of other part of unspecified foot with unspecified severity

== ENCOUNTER 2023-09-18 05:07 | Emergency (ER) | payer BC, OTHER ==
[~2023-09-18] VITALS: Ht 185.4 cm; Wt 96.8 kg
[2023-09-18] MEDS ORDERED: ECOT81TA5 PO (05:26)
[2023-09-18 06:22] LABS: BASO % 0.7 % (0.0-1.0); EOS # 0.1 10^3/uL (0.0-0.5); EOS % 3.5 % (0.0-3.0); HEMATOCRIT 30.8 % (42.0-52.0); HEMOGLOBIN 9.8 g/dl (13.5-17.5); LYMPH # 0.9 10^3/uL (1.5-5.0); LYMPH % 22.7 % (24.0-44.0); MEAN CORPUSCULAR HEMOGLOBIN 31.5 pg (27.0-33.0); MEAN CORPUSCULAR HGB CONC 31.8 g/dl (32.0-36.5); MONO # 0.2 10^3/uL (0.0-0.8); MONO % 4.7 % (2.0-8.0); NEUTROPHILS # 2.7 10^3/uL (1.5-8.5); NEUTROPHILS % 67.9 % (36.0-66.0); PLATELET COUNT, AUTOMATED 113 10^3/uL (150-450); RED BLOOD COUNT 3.11 10^6/uL (4.30-6.10)
[2023-09-18 06:29] LABS: APPEARANCE, URINE MANUAL TURBID (CLEAR)
[2023-09-18 06:30] LABS: COLOR, URINE MANUAL BROWN (YELLOW); SPECIFIC GRAVITY,URINE MANUAL 1.024 (1.002-1.035)
[2023-09-18 06:31] LABS: GLUCOSE, URINE (UA) MANUAL 2+(250 MG/DL) mg/dL (NEGATIVE); PROTEIN, URINE MANUAL 3+ mg/dL (NEGATIVE)
[2023-09-18 06:32] LABS: BILIRUBIN, URINE MANUAL NEGATIVE (NEGATIVE); BLOOD URINE MANUAL POSITIVE (NEGATIVE); KETONE, URINE MANUAL OBSCURED mg/dL (NEGATIVE); LEUKOCYTE ESTERASE, URINE MAN OBSCURED (NEGATIVE); NITRITE, URINE MANUAL OBSCURED (NEGATIVE)
[2023-09-18 06:33] LABS: UROBILINOGEN, URINE MANUAL OBSCURED mg/dl (NORMAL)
[2023-09-18 06:53] LABS: CALCIUM LEVEL 7.8 MG/DL (8.3-10.6); CREATININE FOR GFR 2.69 MG/DL (0.70-1.30); GLOMERULAR FILTRATION RATE 25.7 (>49); POTASSIUM SERUM 3.2 MMOL/L (3.5-5.1)
[2023-09-18 07:07] LABS: RBC, URINE TNTC /hpf (0-3); WBC, URINE TNTC /hpf (0-3)
[2023-09-18 07:08] LABS: SQUAMOUS EPITHELIAL CELL URINE SMALL AMOUNT /hpf (SMALL AMT)
[2023-09-18 07:09] LABS: BACTERIA, URINE NONE SEEN; HYALINE CAST, URINE NONE SEEN /lpf (0-1)
[2023-09-18] MEDS ORDERED: LEVO1TAB39 PO (08:35)
[2023-09-18 08:45] VITALS: BP 159/76; TEMP 96.1; O2SAT 98
[2023-09-18] MEDS: LevoFLOXacin 750 MG TABLET PO ONE (08:45)
== END 2023-09-18 09:01 | disposition home or self-care (01) ==
LOC: M ED 05:07
DX: N39.0 Urinary tract infection, site not specified (principal); N18.6 End stage renal disease; R16.1 Splenomegaly, not elsewhere classified; K57.30 Diverticulosis of large intestine without perforation or abscess without bleeding; N32.89 Other specified disorders of bladder; Z99.2 Dependence on renal dialysis; E11.9 Type 2 diabetes mellitus without complications; I10 Essential (primary) hypertension; K21.9 Gastro-esophageal reflux disease without esophagitis; K74.60 Unspecified cirrhosis of liver; F17.200 Nicotine dependence, unspecified, uncomplicated; Z79.4 Long term (current) use of insulin; Z79.899 Other long term (current) drug therapy; Z88.8 Allergy status to other drugs, medicaments and biological substances

== ENCOUNTER 2023-09-20 05:54 | Day surgery (SDC) | payer BC, OTHER ==
[~2023-09-20] VITALS: Ht 185.4 cm; Wt 96.9 kg
[~2023-09-20 05:54] MED LIST changes: +ECOT81TA5 PO
[2023-09-20] MEDS ORDERED: ATROPINE SULFATE 1% OPHTH SOLN 2ML BTL OD SCH (06:00)
[2023-09-20] MEDS ORDERED: fentaNYL 100 MCG/2 ML INJECTION As Ordered ONE (06:51)
[2023-09-20] MEDS ORDERED: MIDAZOLAM INJ 2MG/2ML VIAL As Ordered ONE (06:51)
[2023-09-20] MEDS: PROPARACAINE 0.5% OPHTH SOL 15ML OD ONE (06:56)
[2023-09-20] MEDS: PHENYLEPHRINE 2.5% OPHTH SOL 2ML OD SCH (06:56)
[2023-09-20] MEDS: OFLOXACIN 0.3 % (OCUFLOX) OPTH SOL 5ML OD SCH (06:59)
[2023-09-20] MEDS: TROPICAMIDE 1% OPHTH SOLN 15ML OD SCH (06:59)
[2023-09-20] MEDS: BSS IRR 500ML/OMIDRIA 4ML IRR BAG (OR ONLY) As Ordered ONE (08:40)
[2023-09-20] MEDS: LIDOCAINE 1% SDV 5ML VIAL As Ordered ONE (08:40)
[2023-09-20] MEDS: CEFUROXIME 1MG/0.1ML INTRACAMERAL INJ As Ordered ONE (08:56)
[2023-09-20 09:08] VITALS: BP 187/81; TEMP 98.2; O2SAT 92
== END 2023-09-20 09:27 | disposition home or self-care (01) ==
LOC: M SDC 05:54
PROVIDERS: ATTEND Ophthalmology
DX: H25.11 Age-related nuclear cataract, right eye (principal); I10 Essential (primary) hypertension; E11.9 Type 2 diabetes mellitus without complications; E78.5 Hyperlipidemia, unspecified; E04.1 Nontoxic single thyroid nodule; Z98.61 Coronary angioplasty status; Z87.891 Personal history of nicotine dependence; Z88.8 Allergy status to other drugs, medicaments and biological substances; Z79.02 Long term (current) use of antithrombotics/antiplatelets; Z79.82 Long term (current) use of aspirin; Z79.899 Other long term (current) drug therapy; K76.0 Fatty (change of) liver, not elsewhere classified; K21.9 Gastro-esophageal reflux disease without esophagitis; G47.33 Obstructive sleep apnea (adult) (pediatric)
CPT/HCPCS: 66984; 84132; J0697; J1097; J2250; J3010; V2632

== ENCOUNTER → 2023-09-26 | Outpatient (CLI) | payer OTHER, BC ==
[2023-09-26 17:19] LABS: BASO % 0.5 % (0.0-1.0); EOS # 0.1 10^3/uL (0.0-0.5); EOS % 1.6 % (0.0-3.0); HEMOGLOBIN 9.4 g/dl (13.5-17.5); LYMPH # 0.9 10^3/uL (1.5-5.0); LYMPH % 22.5 % (24.0-44.0); MEAN CORPUSCULAR HEMOGLOBIN 31.5 pg (27.0-33.0); MEAN CORPUSCULAR HGB CONC 32.4 g/dl (32.0-36.5); MEAN CORPUSCULAR VOLUME 97.3 fl (80.0-96.0); MONO # 0.2 10^3/uL (0.0-0.8); NEUTROPHILS # 2.6 10^3/uL (1.5-8.5); NEUTROPHILS % 68.9 % (36.0-66.0); PLATELET COUNT, AUTOMATED 101 10^3/uL (150-450); RED BLOOD COUNT 2.98 10^6/uL (4.30-6.10); WHITE BLOOD COUNT 3.8 10^3/uL (4.0-10.0)
[2023-09-26 17:24] LABS: ERYTHROCYTE SEDIMENTATION RATE 39 mm/hr (0-20)
== END ==
LOC: M LAB 16:35
PROVIDERS: ATTEND Physician Assistant Medical
DX: L03.115 Cellulitis of right lower limb (principal)

== ENCOUNTER 2023-10-09 02:12 | Emergency (ER) | payer OTHER, BC ==
[~2023-10-09] VITALS: Ht 185.4 cm; Wt 92.7 kg
[2023-10-09 03:37] LABS: BASO % 0.3 % (0.0-1.0); EOS # 0.1 10^3/uL (0.0-0.5); EOS % 1.3 % (0.0-3.0); HEMATOCRIT 30.9 % (42.0-52.0); HEMOGLOBIN 9.9 g/dl (13.5-17.5); LYMPH # 0.6 10^3/uL (1.5-5.0); LYMPH % 7.7 % (24.0-44.0); MEAN CORPUSCULAR VOLUME 96.9 fl (80.0-96.0); MONO # 0.2 10^3/uL (0.0-0.8); MONO % 3.1 % (2.0-8.0); NEUTROPHILS # 6.2 10^3/uL (1.5-8.5); NEUTROPHILS % 86.9 % (36.0-66.0); RED BLOOD COUNT 3.19 10^6/uL (4.30-6.10); WHITE BLOOD COUNT 7.1 10^3/uL (4.0-10.0)
[2023-10-09 03:57] LABS: PLATELET COUNT, AUTOMATED 84 10^3/uL (150-450)
[2023-10-09 04:00] LABS: ALBUMIN 3.2 G/DL (3.2-5.2); ALKALINE PHOSPHATASE 65 U/L (46-116); ALT/SGPT < 9 U/L (7.0-40); AST/SGOT 24 U/L (<34); BLOOD UREA NITROGEN 23 MG/DL (9-23); CALCIUM LEVEL 8.1 MG/DL (8.3-10.6); CARBON DIOXIDE LEVEL 33 MMOL/L (20-31); CHLORIDE LEVEL 100 MMOL/L (98-107); CREATININE FOR GFR 2.73 MG/DL (0.70-1.30); GLOMERULAR FILTRATION RATE 25.3 (>49); GLUCOSE, FASTING 125 MG/DL (74-106); POTASSIUM SERUM 3.1 MMOL/L (3.5-5.1); SODIUM LEVEL 138 MMOL/L (136-145)
[2023-10-09 04:54] LABS: ERYTHROCYTE SEDIMENTATION RATE 13 mm/hr (0-20)
[2023-10-09 06:27] VITALS: BP 158/75; TEMP 99.6
[2023-10-09] MEDS ORDERED: CEPH500C PO (06:28)
[2023-10-09 06:32] VITALS: O2SAT 94
== END 2023-10-09 06:37 | disposition home or self-care (01) ==
LOC: M ED 02:12
DX: L03.115 Cellulitis of right lower limb (principal); E11.9 Type 2 diabetes mellitus without complications; I10 Essential (primary) hypertension; N18.9 Chronic kidney disease, unspecified; M10.9 Gout, unspecified; Z86.79 Personal history of other diseases of the circulatory system; Z88.1 Allergy status to other antibiotic agents; Z88.8 Allergy status to other drugs, medicaments and biological substances; Z79.4 Long term (current) use of insulin; Z79.82 Long term (current) use of aspirin; Z79.02 Long term (current) use of antithrombotics/antiplatelets; Z79.899 Other long term (current) drug therapy

== ENCOUNTER → 2023-10-14 | Outpatient (CLI) | payer BC, OTHER ==
[~2023-10-14] MED LIST changes: +CEPH500C PO; +DOXY-323 PO; -DOXY-443 PO
== END ==
LOC: M RAD 16:24
PROVIDERS: ATTEND Internal Medicine Pulmonary Disease
DX: Z87.891 Personal history of nicotine dependence (principal)

== ENCOUNTER → 2023-10-26 | Outpatient (CLI) | payer BC, OTHER ==
[~2023-10-26] MED LIST changes: -DOXY-323 PO; +DOXY-443 PO
== END ==
LOC: M SLEEP 20:00
PROVIDERS: ATTEND Internal Medicine Pulmonary Disease
DX: G47.33 Obstructive sleep apnea (adult) (pediatric) (principal)

== ENCOUNTER 2024-02-19 17:00 | Emergency (ER) | payer BC, OTHER ==
[~2024-02-19] VITALS: Ht 185.4 cm; Wt 95.5 kg
[~2024-02-19 17:00] MED LIST changes: +DOXY-323 PO; -DOXY-443 PO
[2024-02-19 17:01] VITALS: TEMP 99.5
[2024-02-19 18:40] VITALS: BP 151/70; O2SAT 97
[2024-02-19 18:46] LABS: BASO % 0.4 % (0.0-1.0); EOS % 0.4 % (0.0-3.0); HEMATOCRIT 31.7 % (42.0-52.0); HEMOGLOBIN 10.1 g/dl (13.5-17.5); LYMPH % 10.4 % (24.0-44.0); MEAN CORPUSCULAR HEMOGLOBIN 30.6 pg (27.0-33.0); MEAN CORPUSCULAR HGB CONC 31.9 g/dl (32.0-36.5); MEAN CORPUSCULAR VOLUME 96.1 fl (80.0-96.0); MONO # 0.5 10^3/uL (0.0-0.8); NEUTROPHILS % 83.3 % (36.0-66.0); WHITE BLOOD COUNT 9.6 10^3/uL (4.0-10.0)
[2024-02-19 18:47] LABS: PLATELET COUNT, AUTOMATED 96 10^3/uL (150-450)
[2024-02-19 19:06] LABS: C REACTIVE PROTEIN QUANTITATIV 9.5 MG/DL (<1.0)
[2024-02-19 19:07] LABS: ALBUMIN 3.4 G/DL (3.2-5.2); BILIRUBIN,TOTAL 1.3 MG/DL (0.3-1.2); CALCIUM LEVEL 8.3 MG/DL (8.3-10.6); CREATININE FOR GFR 4.33 MG/DL (0.70-1.30); GLOMERULAR FILTRATION RATE 14.9 (>49); MAGNESIUM LEVEL 1.8 MG/DL (1.8-2.4); POTASSIUM SERUM 3.5 MMOL/L (3.5-5.1); TOTAL PROTEIN 6.6 G/DL (5.7-8.2)
[2024-02-19] MEDS ORDERED: CIPR-250 PO (19:24)
[2024-02-19] MEDS: LIDOCAINE 1% SDV 5ML VIAL DILUENT ONE (19:41)
[2024-02-19] MEDS: cefTRIAXone SOD 1GM VIAL IM ONE (19:42)
== END 2024-02-19 19:45 | disposition home or self-care (01) ==
LOC: M ED 17:00
DX: N39.0 Urinary tract infection, site not specified (principal); E11.9 Type 2 diabetes mellitus without complications; K21.9 Gastro-esophageal reflux disease without esophagitis; Z86.79 Personal history of other diseases of the circulatory system; Z88.1 Allergy status to other antibiotic agents; Z88.8 Allergy status to other drugs, medicaments and biological substances; Z79.82 Long term (current) use of aspirin; Z79.899 Other long term (current) drug therapy; Z79.2 Long term (current) use of antibiotics
CPT/HCPCS: 80053; 81001; 83605; 83735; 85025; 85049; 85055; 86140; 87040; 87088; 87186; 96372; 99283; J0696

== ENCOUNTER 2024-03-16 09:15 | Outpatient (RCR) | payer BC, OTHER ==
[~2024-03-16 09:15] MED LIST changes: +CIPR-250 PO
[2024-03-17] MEDS ORDERED: DOXY-323 PO (20:07)
== END 2024-03-17 ==
LOC: M PT 09:15
PROVIDERS: ATTEND Family Medicine
DX: Z89.512 Acquired absence of left leg below knee (principal)

== ENCOUNTER 2024-03-17 15:38 | Emergency (ER) | payer BC, OTHER ==
[~2024-03-17] VITALS: Ht 185.4 cm; Wt 95.4 kg
[2024-03-17 18:47] LABS: BASO % 0.7 % (0.0-1.0); EOS # 0.1 10^3/uL (0.0-0.5); EOS % 1.4 % (0.0-3.0); HEMATOCRIT 34.7 % (42.0-52.0); LYMPH # 0.7 10^3/uL (1.5-5.0); MEAN CORPUSCULAR HEMOGLOBIN 30.7 pg (27.0-33.0); MEAN CORPUSCULAR HGB CONC 31.7 g/dl (32.0-36.5); MEAN CORPUSCULAR VOLUME 96.9 fl (80.0-96.0); MONO # 0.3 10^3/uL (0.0-0.8); MONO % 7.8 % (2.0-8.0); NEUTROPHILS # 3.2 10^3/uL (1.5-8.5); NEUTROPHILS % 72.6 % (36.0-66.0); PLATELET COUNT, AUTOMATED 114 10^3/uL (150-450); RED BLOOD COUNT 3.58 10^6/uL (4.30-6.10); WHITE BLOOD COUNT 4.4 10^3/uL (4.0-10.0)
[2024-03-17 18:53] LABS: ERYTHROCYTE SEDIMENTATION RATE 50 mm/hr (0-20)
[2024-03-17 19:16] LABS: C REACTIVE PROTEIN QUANTITATIV 6.8 MG/DL (<1.0)
[2024-03-17 19:18] LABS: CREATININE FOR GFR 4.02 MG/DL (0.70-1.30); GLOMERULAR FILTRATION RATE 16.2 (>49); POTASSIUM SERUM 3.6 MMOL/L (3.5-5.1)
[2024-03-17] MEDS ORDERED: DOXY-323 PO (20:07)
[2024-03-17] MEDS: DOXYCYCLINE HYCLATE 100MG TABLET PO ONE (20:45)
[2024-03-17 20:49] VITALS: BP 186/79; TEMP 98.2; O2SAT 96
== END 2024-03-17 20:55 | disposition home or self-care (01) ==
LOC: M ED 15:38
DX: L03.115 Cellulitis of right lower limb (principal); E11.9 Type 2 diabetes mellitus without complications; I10 Essential (primary) hypertension; E78.5 Hyperlipidemia, unspecified; K21.9 Gastro-esophageal reflux disease without esophagitis; N18.6 End stage renal disease; K74.60 Unspecified cirrhosis of liver; Z88.1 Allergy status to other antibiotic agents; Z88.8 Allergy status to other drugs, medicaments and biological substances; Z79.82 Long term (current) use of aspirin; Z79.02 Long term (current) use of antithrombotics/antiplatelets; Z79.4 Long term (current) use of insulin; Z79.2 Long term (current) use of antibiotics; Z79.899 Other long term (current) drug therapy

== ENCOUNTER 2024-03-28 08:30 | Outpatient (RCR) | payer BC, OTHER ==
[~2024-03-28 08:30] MED LIST changes: -DOXY-323 PO; +DOXY-441 PO
== END 2024-04-16 ==
LOC: M PT 08:30
PROVIDERS: ATTEND Family Medicine
DX: Z89.512 Acquired absence of left leg below knee (principal)

== ENCOUNTER → 2024-05-09 | Outpatient (REF) | payer BC, OTHER ==
[2024-05-09 16:53] LABS: HEMATOCRIT 33.9 % (42.0-52.0); HEMOGLOBIN 10.9 g/dl (13.5-17.5); MEAN CORPUSCULAR HEMOGLOBIN 30.4 pg (27.0-33.0); MEAN CORPUSCULAR HGB CONC 32.2 g/dl (32.0-36.5); MEAN CORPUSCULAR VOLUME 94.7 fl (80.0-96.0); PLATELET COUNT, AUTOMATED 115 10^3/uL (150-450); RED BLOOD COUNT 3.58 10^6/uL (4.30-6.10); WHITE BLOOD COUNT 3.6 10^3/uL (4.0-10.0)
[2024-05-09 17:09] LABS: INR 1.37; PARTIAL THROMBOPLASTIN TIME 34.6 SECONDS (24.8-34.2); PROTHROMBIN TIME 16.4 SECONDS (12.5-14.5)
[2024-05-09 17:48] LABS: ALBUMIN 3.3 G/DL (3.2-5.2); BILIRUBIN,TOTAL 0.7 MG/DL (0.3-1.2); CALCIUM LEVEL 8.8 MG/DL (8.3-10.6); CREATININE FOR GFR 4.94 MG/DL (0.70-1.30); GLOMERULAR FILTRATION RATE 12.8 (>49); POTASSIUM SERUM 3.5 MMOL/L (3.5-5.1); TOTAL PROTEIN 6.6 G/DL (5.7-8.2)
== END ==
LOC: M SFHCADAM 15:01
PROVIDERS: ATTEND Physician Assistant Medical
DX: Z01.818 Encounter for other preprocedural examination (principal); N18.6 End stage renal disease

== ENCOUNTER → 2024-06-01 | Outpatient (CLI) | payer BC, OTHER | LOC: M RAD 11:32 | PROVIDERS: ATTEND Surgery | DX: Z01.818 Encounter for other preprocedural examination (principal); N18.6 End stage renal disease; Z99.2 Dependence on renal dialysis ==

== ENCOUNTER → 2024-06-21 | Outpatient (CLI) | payer BC, OTHER | LOC: M RAD 14:13 | PROVIDERS: ATTEND Otolaryngology | DX: R91.1 Solitary pulmonary nodule (principal) ==

== ENCOUNTER 2024-08-21 14:27 | Emergency (ER) | payer BC, MEDICARE ==
[~2024-08-21] VITALS: Ht 188 cm; Wt 111.8 kg
[2024-08-21 14:30] VITALS: BP 143/65; TEMP 100; O2SAT 100
[2024-08-21 17:58] LABS: BASO % 0.3 % (0.0-1.0); EOS # 0.1 10^3/uL (0.0-0.5); EOS % 0.9 % (0.0-3.0); HEMATOCRIT 32.9 % (42.0-52.0); HEMOGLOBIN 10.3 g/dl (13.5-17.5); LYMPH # 1.2 10^3/uL (1.5-5.0); LYMPH % 20.9 % (24.0-44.0); MEAN CORPUSCULAR HEMOGLOBIN 30.9 pg (27.0-33.0); MEAN CORPUSCULAR HGB CONC 31.3 g/dl (32.0-36.5); MEAN CORPUSCULAR VOLUME 98.8 fl (80.0-96.0); MONO # 0.4 10^3/uL (0.0-0.8); MONO % 6.3 % (2.0-8.0); NEUTROPHILS # 4.1 10^3/uL (1.5-8.5); NEUTROPHILS % 70.7 % (36.0-66.0); PLATELET COUNT, AUTOMATED 102 10^3/uL (150-450); RED BLOOD COUNT 3.33 10^6/uL (4.30-6.10); WHITE BLOOD COUNT 5.8 10^3/uL (4.0-10.0)
[2024-08-21 18:05] LABS: ERYTHROCYTE SEDIMENTATION RATE 42 mm/hr (0-20)
[2024-08-21 18:17] LABS: URIC ACID 1.9 MG/DL (3.7-9.2)
[2024-08-21 18:20] LABS: C REACTIVE PROTEIN QUANTITATIV 3.75 MG/DL (<1.0); CALCIUM LEVEL 8.6 MG/DL (8.3-10.6); CREATININE FOR GFR 4.02 MG/DL (0.70-1.30); GLOMERULAR FILTRATION RATE 16.1 (>49); POTASSIUM SERUM 3.7 MMOL/L (3.5-5.1)
[2024-08-21] MEDS ORDERED: CEPH500C PO (18:55)
== END 2024-08-21 19:06 | disposition home or self-care (01) ==
LOC: M ED 14:27
DX: L03.114 Cellulitis of left upper limb (principal); E11.9 Type 2 diabetes mellitus without complications; I10 Essential (primary) hypertension; N18.9 Chronic kidney disease, unspecified; Z86.79 Personal history of other diseases of the circulatory system; Z88.1 Allergy status to other antibiotic agents; Z88.8 Allergy status to other drugs, medicaments and biological substances; Z79.82 Long term (current) use of aspirin; Z79.02 Long term (current) use of antithrombotics/antiplatelets; Z79.2 Long term (current) use of antibiotics; Z79.899 Other long term (current) drug therapy; Z79.4 Long term (current) use of insulin

== ENCOUNTER → 2024-09-18 | Outpatient (REF) | payer BC, MEDICARE | LOC: M LAB REF 17:00 | PROVIDERS: ATTEND Physician Assistant Medical | DX: J06.9 Acute upper respiratory infection, unspecified (principal) ==

== ENCOUNTER → 2024-10-17 | Outpatient (CLI) | payer BC, MEDICARE | LOC: M RAD 09:45 | PROVIDERS: ATTEND Internal Medicine Pulmonary Disease | DX: Z87.891 Personal history of nicotine dependence (principal); E04.1 Nontoxic single thyroid nodule; I25.10 Atherosclerotic heart disease of native coronary artery without angina pectoris; I25.84 Coronary atherosclerosis due to calcified coronary lesion ==

== ENCOUNTER → 2024-10-17 | Outpatient (CLI) | payer BC, MEDICARE | LOC: M LAB 09:33 | PROVIDERS: ATTEND Internal Medicine Gastroenterology | DX: K75.81 Nonalcoholic steatohepatitis (NASH) (principal) ==

== ENCOUNTER 2025-02-13 09:44 | Outpatient (RCR) | payer BC, MEDICARE ==
[~2025-02-13 09:44] MED LIST changes: +HYDR12.510 PO; -HYDR12CA PO; +LISI40TA10 PO; -LISI40TA4 PO
== END 2025-02-14 ==
LOC: M PT 09:44
PROVIDERS: ATTEND Physician Assistant Medical
DX: Z89.512 Acquired absence of left leg below knee (principal)

== ENCOUNTER 2025-02-23 17:57 | Emergency (ER) | payer BC, MEDICARE ==
[~2025-02-23] VITALS: Ht 185.4 cm; Wt 96.7 kg
[2025-02-23] MEDS ORDERED: TRAZ-252 (18:13)
[2025-02-23] MEDS: FAMOTIDINE 20 MG TAB PO ONE (19:05)
[2025-02-23] MEDS: ONDANSETRON 4MG ORAL DISINTEGRATING TAB PO ONE (19:05)
[2025-02-23] MEDS ORDERED: ONDA-282 PO (21:00)
[2025-02-23 22:00] VITALS: BP 132/62; TEMP 98.5; O2SAT 90
== END 2025-02-23 22:06 | disposition home or self-care (01) ==
LOC: M ED 17:57
DX: R11.10 Vomiting, unspecified (principal); E11.9 Type 2 diabetes mellitus without complications; E78.5 Hyperlipidemia, unspecified; N18.6 End stage renal disease; Z79.01 Long term (current) use of anticoagulants; Z87.891 Personal history of nicotine dependence; Z88.8 Allergy status to other drugs, medicaments and biological substances; Z79.899 Other long term (current) drug therapy; Z79.82 Long term (current) use of aspirin; Z79.02 Long term (current) use of antithrombotics/antiplatelets; Z79.4 Long term (current) use of insulin

== ENCOUNTER 2025-02-25 09:46 | Outpatient (RCR) | payer BC, MEDICARE ==
[~2025-02-25 09:46] MED LIST changes: +ONDA-282 PO; +TRAZ-252
[2025-02-26] MEDS ORDERED: PEPC1TAB5 PO (23:09)
[2025-03-15] MEDS ORDERED: ALBU8.5H INH (11:57)
[2025-03-15] MEDS ORDERED: ONDA-282 PO (11:57)
[2025-03-15] MEDS ORDERED: FAMO20TA PO (11:57)
[2025-03-15] MEDS ORDERED: TRAZ-252 PO (11:57)
== END 2025-03-17 ==
LOC: M PT 09:46
PROVIDERS: ATTEND Physician Assistant Medical
DX: Z89.512 Acquired absence of left leg below knee (principal)

== ENCOUNTER 2025-02-26 19:03 | Emergency (ER) | payer BC, MEDICARE ==
[~2025-02-26] VITALS: Ht 185.4 cm; Wt 99.7 kg
[2025-02-26] MEDS: ONDANSETRON 4MG ORAL DISINTEGRATING TAB PO ONE (21:52)
[2025-02-26] MEDS: FAMOTIDINE 20 MG TAB PO ONE (21:53)
[2025-02-26 22:13] LABS: BASO # 0.0 10^3/uL (0.0-0.2); BASO % 0.5 % (0.0-1.0); EOS # 0.1 10^3/uL (0.0-0.5); EOS % 1.2 % (0.0-3.0); LYMPH # 0.7 10^3/uL (1.5-5.0); LYMPH % 17.2 % (24.0-44.0); MONO # 0.2 10^3/uL (0.0-0.8); MONO % 5.6 % (2.0-8.0); NEUTROPHILS # 3.1 10^3/uL (1.5-8.5); NEUTROPHILS % 75.0 % (36.0-66.0)
[2025-02-26 22:33] LABS: ALT/SGPT 10.0 U/L (7.0-40); AST/SGOT 23.0 U/L (<34); CALCIUM LEVEL 8.1 MG/DL (8.3-10.6); CARBON DIOXIDE LEVEL 31.0 MMOL/L (20-31); CHLORIDE LEVEL 100.0 MMOL/L (98-107); CREATININE FOR GFR 4.53 MG/DL (0.70-1.30); GLOMERULAR FILTRATION RATE 13.8 (>49); POTASSIUM SERUM 4.3 MMOL/L (3.5-5.1); SODIUM LEVEL 143.0 MMOL/L (136-145)
[2025-02-26 22:42] LABS: PLATELET COUNT, AUTOMATED 93 10^3/uL (150-450)
[2025-02-26 22:47] LABS: KETONE, URINE AUTO RFX NEGATIVE (NEGATIVE); LEUKOCYTE ESTERASE UR AUTO RFX TRACE (NEGATIVE); MUCUS, URINE RFX SMALL (NEGATIVE); NITRITE, URINE AUTO RFX NEGATIVE (NEGATIVE); RBC, URINE AUTO RFX 8 /HPF (0-3); SQUAM EPITHELIAL CELL UR AURFX 1 /HPF (0-6); WBC, URINE AUTO RFX 16 /HPF (0-3)
[2025-02-26] MEDS ORDERED: PEPC1TAB5 PO (23:09)
[2025-02-26 23:37] VITALS: BP 136/63; TEMP 99.1; O2SAT 90
== END 2025-02-26 23:39 | disposition home or self-care (01) ==
LOC: M ED 19:03
DX: R11.2 Nausea with vomiting, unspecified (principal); E11.9 Type 2 diabetes mellitus without complications; E78.5 Hyperlipidemia, unspecified; N18.6 End stage renal disease; K74.60 Unspecified cirrhosis of liver; Z87.891 Personal history of nicotine dependence; Z79.01 Long term (current) use of anticoagulants; Z88.8 Allergy status to other drugs, medicaments and biological substances; Z79.82 Long term (current) use of aspirin; Z79.02 Long term (current) use of antithrombotics/antiplatelets; Z79.83 Long term (current) use of bisphosphonates; Z79.899 Other long term (current) drug therapy

== ENCOUNTER 2025-03-15 07:48 | Emergency (ER) | payer BC, MEDICARE ==
[~2025-03-15] VITALS: Ht 185.4 cm; Wt 96.0 kg
[~2025-03-15 07:48] MED LIST changes: +PEPC1TAB5 PO
[2025-03-15] MEDS: NS (Normal Saline) 0.9% 1,000 ML IV SCH (08:26)
[2025-03-15 08:30] LABS: BASO # 0.0 10^3/uL (0.0-0.2); BASO % 0.7 % (0.0-1.0); EOS # 0.0 10^3/uL (0.0-0.5); EOS % 0.9 % (0.0-3.0); LYMPH # 0.7 10^3/uL (1.5-5.0); LYMPH % 14.3 % (24.0-44.0); MONO # 0.2 10^3/uL (0.0-0.8); MONO % 5.3 % (2.0-8.0); NEUTROPHILS # 3.5 10^3/uL (1.5-8.5); NEUTROPHILS % 78.1 % (36.0-66.0)
[2025-03-15 08:31] LABS: PLATELET COUNT, AUTOMATED 90 10^3/uL (150-450)
[2025-03-15 09:19] LABS: ALT/SGPT < 9 U/L (7.0-40); AST/SGOT 26 U/L (<34); CALCIUM LEVEL 8.3 MG/DL (8.3-10.6); CARBON DIOXIDE LEVEL 29 MMOL/L (20-31); CHLORIDE LEVEL 100 MMOL/L (98-107); CREATININE FOR GFR 4.84 MG/DL (0.70-1.30); GLOMERULAR FILTRATION RATE 12.8 (>49); POTASSIUM SERUM 4.9 MMOL/L (3.5-5.1); SODIUM LEVEL 141 MMOL/L (136-145)
[2025-03-15] MEDS ORDERED: ONDA-282 PO (11:57)
[2025-03-15] MEDS ORDERED: FAMO20TA PO (11:57)
[2025-03-15] MEDS ORDERED: ALBU8.5H INH (11:57)
[2025-03-15] MEDS ORDERED: TRAZ-252 PO (11:57)
[2025-03-15] MEDS ORDERED: HOME MED LIST COMPLETE! XX SCH (12:00)
[2025-03-15 13:00] VITALS: TEMP 98.6
[2025-03-15 13:15] VITALS: BP 138/64; O2SAT 94
== END 2025-03-15 13:25 | disposition home or self-care (01) ==
LOC: M ED 07:48
DX: R11.0 Nausea (principal); E11.9 Type 2 diabetes mellitus without complications; Z88.8 Allergy status to other drugs, medicaments and biological substances; Z79.52 Long term (current) use of systemic steroids; Z79.82 Long term (current) use of aspirin; Z79.02 Long term (current) use of antithrombotics/antiplatelets; Z79.4 Long term (current) use of insulin; Z79.899 Other long term (current) drug therapy
CPT/HCPCS: 80048; 80076; 83690; 85025; 85049; 85055; 93005; 96361; 96374; 99284; J2765

== ENCOUNTER → 2025-04-25 | Outpatient (REF) | payer BC, MEDICARE ==
[~2025-04-25] MED LIST changes: +ALBU8.5H INH; +FAMO20TA PO; +TRAZ-252 PO
== END ==
LOC: M SFHCADAM 16:56
PROVIDERS: ATTEND Physician Assistant Medical
DX: R19.7 Diarrhea, unspecified (principal)

== ENCOUNTER → 2025-05-08 | Outpatient (CLI) | payer BC, MEDICARE | LOC: M CARPUL 11:04 | PROVIDERS: ATTEND Registered Nurse | DX: I27.81 Cor pulmonale (chronic) (principal); I34.0 Nonrheumatic mitral (valve) insufficiency ==

== ENCOUNTER → 2025-06-21 | Outpatient (CLI) | payer BC, MEDICARE ==
[~2025-06-21] MED LIST changes: -BACTDSTA PO; +SULF-8 PO
== END ==
LOC: M RAD 13:17
PROVIDERS: ATTEND Surgery
DX: I70.238 Atherosclerosis of native arteries of right leg with ulceration of other part of lower leg (principal); R68.89 Other general symptoms and signs